=== PATIENT | male | born 1940 | race Hispanic/Latino ===

== ENCOUNTER 2017-05-18 10:55 | Inpatient (IN) | payer MEDICARE ==
[2017-05-18 11:00] VITALS: BMI 21.5
--- NOTE | 2017-05-18 11:34 | ED PDOC ---
HPI: General Adult Time Seen by Provider: 05/18/17 11:04 Chief Complaint (Nursing): Fever Chief Complaint (Provider): Generalized weakness History Per: Patient History/Exam Limitations: no limitations Onset/Duration Of Symptoms: Days (x1) Current Symptoms Are (Timing): Still Present Additional Complaint(s): Leo Luke is a 76 year old male with a past medical history of COPD, HTN, and hyperlipidemia, who is presenting to the ER with complains of generalized weakness with associated fever and one episode of non-bloody diarrhea, onset one day ago. Patient reports feeling like his heart was racing during bowel movements. He denies chest pain, shortness of breath, nausea, vomiting, abdominal pain, cough, or any genitourinary symptoms. Patient offers no other medical complaints at this time. PMD: none provided Past Medical History Reviewed: Historical Data, Nursing Documentation, Vital Signs Vital Signs: Last Vital Signs Temp 97.6 F 05/21/17 20:00 Pulse 78 05/21/17 20:00 Resp 20 05/21/17 20:00 BP 148/68 05/21/17 20:00 Pulse Ox 97 05/21/17 20:00 - Medical History PMH: COPD, Emphysema, HTN, Hypercholesterolemia, Chronic Kidney Disease - Surgical History Surgical History: No Surg Hx - Family History Family History: States: Unknown Family Hx - Home Medications Home Medications: Ambulatory Orders Medication Instructions Recorded Albuterol 0.083% [Albuterol 0.083% 3 ml IH Q4 PRN 05/18/17 Inhal Lisa (2.5 mg/3 ml) UD] Albuterol Sulfate [Proair Hfa] 2 puff IH Q6 PRN 05/18/17 Atorvastatin [Lipitor] 20 mg PO DAILY 05/18/17 Azithromycin [Zithromax] 250 mg PO MWF 05/18/17 Digoxin [Lanoxin] 250 mcg PO DAILY 05/18/17 Finasteride [Proscar] 5 mg PO DAILY 05/18/17 Fluticasone/Salmeterol 500/50 1 puff IH Q12 05/18/17 [Advair Diskus 500/50] Gabapentin [Neurontin] 300 mg PO HS 05/18/17 Insulin Glargine, Recombina 20 unit SC HS 05/18/17 [Lantus] Losartan [Cozaar] 25 mg PO DAILY 05/18/17 Repaglinide [Prandin] 2 mg PO TID 05/18/17 Tiotropium [Spiriva] 18 mcg IH DAILY 05/18/17 Warfarin [Coumadin] 2.5 mg PO Q48H 05/18/17 Warfarin [Coumadin] 5 mg PO Q48H 05/18/17 - Allergies Allergies/Adverse Reactions: Allergies Allergy/AdvReac Type Severity Reaction Status Date / Time hydromorphone Allergy Mild RASH Verified 05/18/17 11:44 Review of Systems ROS Statement: Except As Marked, All Systems Reviewed And Found Negative Constitutional: Positive for: Fever, Weakness Cardiovascular: Negative for: Chest Pain Respiratory: Negative for: Cough, Shortness of Breath Gastrointestinal: Positive for: Diarrhea. Negative for: Nausea, Vomiting, Abdominal Pain Genitourinary Male: Negative for: Other ( genitourinary problems) Physical Exam - Reviewed Nursing Documentation Reviewed: Yes Vital Signs Reviewed: Yes - Physical Exam Appears: Positive for: Non-toxic, No Acute Distress Head Exam: Positive for: ATRAUMATIC, NORMAL INSPECTION, NORMOCEPHALIC Skin: Positive for: Normal Color, Warm, Dry Eye Exam: Positive for: EOMI, Normal appearance, PERRL Neck: Positive for: Normal, Painless ROM, Supple Cardiovascular/Chest: Positive for: Irregularly Irregular. Negative for: Murmur Respiratory: Positive for: Normal Breath Sounds. Negative for: Respiratory Distress Gastrointestinal/Abdominal: Positive for: Normal Exam, Soft. Negative for: Tenderness Back: Positive for: Normal Inspection. Negative for: L CVA Tenderness, R CVA Tenderness, Vertebral Tenderness Extremity: Positive for: Normal ROM. Negative for: Pedal Edema, Deformity Neurologic/Psych: Positive for: Alert, Oriented. Negative for: Motor/Sensory Deficits - Laboratory Results Result Diagrams: 05/21/17 04:56 05/21/17 04:56 - ECG Interpretation Of ECG: A fib @ O2 Sat by Pulse Oximetry: 98 (RA) Pulse Ox Interpretation: Normal - Physician Consult Information Time Consulting Physican Contacted: 13:01 Physician Contacted: Andrew Last Outcome Of Conversation: Findings discussed, agrees with ASA, pt on Coumadin with INR 3.7, no Lovenox at this time. Medical Decision Making Medical Decision Making: Time: 11:45 Plan: --EKG --CMP --Troponin --ED Urine Dipstick --CBC --PTT --Coag --CXR --Blood Culture --Urine Culture --Influenza A B --Urinalysis --VBG --Tylenol 650 mg PO Differentials include: fever, viral syndrome, influenza 13:16 Dr. Galvez in ED evaluating Patient. Scribe Attestation: Documented by Hilary Martínez, acting as a scribe for Ellie Fatima MD. Provider Scribe Attestation: All medical record entries made by the Scribe were at my direction and personally dictated by me. I have reviewed the chart and agree that the record accurately reflects my personal performance of the history, physical exam, medical decision making, and the department course for this patient. I have also personally directed, reviewed, and agree with the discharge instructions and disposition. Disposition - Clinical Impression Clinical Impression: Fever in adult, Sepsis, NSTEMI (non-ST elevated myocardial infarction) - Patient ED Disposition Is Patient to be Admitted: Yes - Disposition Disposition Time: 13:00 Condition: GUARDED - Pt Status Changed To: Hospital Disposition Of: Inpatient - Admit Certification Admit to Inpatient:: After my assessment, the patient will require hospitalization for at least two midnights. This is because of the severity of symptoms shown, intensity of services needed, and/or the medical risk in this patient being treated as an outpatient. - POA Present On Arrival: None
[2017-05-18 12:09] LABS: VENOUS BLOOD GAS PCO2 48 mmHg (40-60); VENOUS BLOOD GAS PO2 26 mm/Hg (30-55)
[2017-05-18 12:24] LABS: BASO % 0.2 % (0.0-2.0); HEMOGLOBIN 15.2 g/dL (12.0-18.0); LYMPH # 0.9 K/uL (1.0-4.3); LYMPH % 4.2 % (20.0-40.0); MEAN CELL VOLUME 92.3 fl (80.0-94.0); MEAN CORPUSCULAR HEMOGLOBIN 31.5 pg (27.0-31.0); MEAN CORPUSCULAR HGB CONC 34.1 g/dL (33.0-37.0); MEAN PLATELET VOLUME 7.5 fl (7.2-11.7); MONO % 9.3 % (0.0-10.0); NEUT # 18.2 K/uL (1.8-7.0); NEUT % 86.3 % (50.0-75.0); NRBC % 0.6 % (0.0-0.0); PLATELET COUNT 259 K/uL (130-400); RBC 4.84 Mil/uL (4.40-5.90); RED CELL DISTRIBUTION WIDTH 12.9 % (11.5-14.5); WHITE BLOOD COUNT 21.1 K/uL (4.8-10.8)
--- NOTE | 2017-05-18 12:32 | RAD ---
HISTORY: Fever COMPARISON: 11/19/2015 FINDINGS: LUNGS: No active pulmonary disease. Scarring, surgical changes left lung. PLEURA: No significant pleural effusion identified, no pneumothorax apparent. CARDIOVASCULAR: Normal. OSSEOUS STRUCTURES: No significant abnormalities. VISUALIZED UPPER ABDOMEN: Normal. OTHER FINDINGS: None. IMPRESSION: No active disease. No significant interval change compared to the prior examination(s).
[2017-05-18 12:35] LABS: INR 3.7 (0.9-1.2); PARTIAL THROMBOPLASTIN TIME 49.1 Seconds (25.6-37.1)
[2017-05-18 12:37] LABS: PROTHROMBIN TIME 42.2 Seconds (9.8-13.1)
[2017-05-18] MEDS ORDERED: Sodium Chloride 0.9% 500 ML IV STA (12:38)
[2017-05-18 12:48] LABS: ALB/GLOB RATIO 1.3 (1.0-2.1); ALBUMIN 4.1 g/dL (3.5-5.0); ALT/SGPT 39 U/L (21-72); AST/SGOT 42 U/L (17-59); BLOOD UREA NITROGEN 20 mg/dl (9-20); CALCIUM 9.9 mg/dL (8.4-10.2); GFR AFRICAN-AMERICAN > 60; GFR NON-AFRICAN AMERICAN > 60
[2017-05-18] MEDS ORDERED: cefTRIAXone (Rocephin) 1 gm Inj ONE (13:17)
[2017-05-18] MEDS ORDERED: levoFLOXacin 750 mg in D5W 150 ML BAG IVPB ONE (13:21)
[2017-05-18] MEDS ORDERED: Azithromycin 500 MG in Sodium Chloride 0.9% 250 ML IV ONE (13:30)
[2017-05-18 13:44] LABS: TOTAL CELLS COUNTED 100
[2017-05-18 13:45] LABS: BANDS 2 % (0-2); EOSINOPHIL 1 % (0-7); LYMPHOCYTE 5 % (20-50); MONOCYTE 9 % (0-10); NEUTROPHIL 83 % (42-75); PLATELET ESTIMATE NORMAL (NORMAL)
--- NOTE | 2017-05-18 14:26 | CP.PCM.HP ---
History of Present Illness - History of Present Illness History of Present Illness: 76 yo M with PMH HTN, COPD, DM2, atrial fibrillation (sees Dr. Last), hx lung nodule presented to ED with complaint of generalized weakness and 1 episode of non-bloody diarrhea 1 day ago. Denies chest pain, shortness of breath, nausea, vomiting, abdominal pain, joint pain. He has no other complaints at this time. He has a history of left lung nodule/mass that has been resected in the past; sees specialist in [facility] [place] [place]. He has been on PO azithromycin for about 1 month for a pneumonia found on imaging at [facility] [place] [place]. PMD: Dr. Galvez Past Med hx: hypertension, COPD, DM2, A-fib, lung nodule Past Surg hx: left lung Family hx: grandmother DM2, grandfather [place] Social hx: smoked cig for 10 yrs (age [age]), then smoked tobacco pipe from age [age], 1 beer a week, denies drug use Allergies: hydromorphone Next of kin: , [place] [phone] Code status: full code ED course: -EKG HR 100, A-fib with premature ventricular or aberrantly conducted complexes ; marked ST abnormality, possible anterolateral subendocardial injury -WBC 21 -Lactate 3.1 -Troponin 0.9 -Cardiology consult- Dr. Last -INR 3.7 -NS bolus -Levaquin, Rocephin -Blood Cultures -Urine Cultures -Influenza A B - neg -Urinalysis Present on Admission - Present on Admission Any Indicators Present on Admission: No Review of Systems - Review of Systems Review of Systems: Positive for weakness and diarrhea. Negative for headache, blurry/changes in vision, headache, loss of coordination, diaphoresis, chest pain, shortness of breath, dyspnea on exertion, orthopnea, abdominal pain, nausea, vomiting, constipation, blood in stool, pain/burning with urination, blood in urine, joint swelling, muscle cramps. Past Patient History - Past Medical History & Family History Past Medical History?: Yes - Past Social History Smoking Status: Former Smoker Alcohol: Occasional Drugs: Denies Home Situation {Lives}: With Family - CARDIAC Hx Cardiac Disorders: Yes Hx Hypercholesterolemia: Yes Hx Hypertension: Yes - PULMONARY Hx Respiratory Disorders: Yes Hx Chronic Obstructive Pulmonary Disease (COPD): Yes Hx Emphysema: Yes Hx Pneumonia: Yes Other/Comment: hx pulmonary nodule - NEUROLOGICAL Hx Neurological Disorder: No - HEENT Hx HEENT Problems: No - RENAL Hx Chronic Kidney Disease: Yes - ENDOCRINE/METABOLIC Hx Endocrine Disorders: Yes Hx Diabetes Mellitus Type 2: Yes - HEMATOLOGICAL/ONCOLOGICAL Hx Blood Disorders: No - INTEGUMENTARY Hx Dermatological Problems: No - MUSCULOSKELETAL/RHEUMATOLOGICAL Hx Musculoskeletal Disorders: No - GASTROINTESTINAL Hx Gastrointestinal Disorders: No - GENITOURINARY/GYNECOLOGICAL Hx Genitourinary Disorders: Yes Hx Prostate Problems: Yes - PSYCHIATRIC Hx Substance Use: No - SURGICAL HISTORY Hx Surgeries: Yes Other/Comment: lung nodule resection - ANESTHESIA Hx Anesthesia: Yes Hx Anesthesia Reactions: No Hx Malignant Hyperthermia: No Meds Allergies/Adverse Reactions: Allergies Allergy/AdvReac Type Severity Reaction Status Date / Time hydromorphone Allergy Mild RASH Verified 05/18/17 11:44 Physical Exam - Constitutional Appears: Non-toxic - Head Exam Head Exam: ATRAUMATIC, NORMAL INSPECTION - Eye Exam Eye Exam: Normal appearance, PERRL. absent: Scleral icterus - ENT Exam ENT Exam: Mucous Membranes Moist, Normal Exam - Neck Exam Neck exam: Positive for: Normal Inspection. Negative for: Lymphadenopathy, Meningismus, Tenderness - Respiratory Exam Respiratory Exam: Clear to Auscultation Bilateral, NORMAL BREATHING PATTERN. absent: Wheezes, Respiratory Distress - Cardiovascular Exam Cardiovascular Exam: Irregular Rhythm Additional comments: irregularly irregular - GI/Abdominal Exam GI & Abdominal Exam: Normal Bowel Sounds, Soft. absent: Distended, Tenderness - Extremities Exam Extremities exam: Positive for: normal capillary refill, normal inspection. Negative for: calf tenderness, joint swelling, pedal edema - Back Exam Back exam: NORMAL INSPECTION - Neurological Exam Neurological exam: Alert, Oriented x3 - Psychiatric Exam Psychiatric exam: Normal Affect, Normal Mood - Skin Skin Exam: Dry, Intact, Warm Additional comments: flushed skin on face; as per not significantly off baseline Results - Vital Signs Recent Vital Signs: Last Vital Signs Temp 98.5 F 05/18/17 14:15 Pulse 90 05/18/17 14:15 Resp 21 05/18/17 14:15 BP 130/50 L 05/18/17 14:15 Pulse Ox 97 05/18/17 14:15 - Labs Result Diagrams: 05/18/17 17:45 05/18/17 17:17 Labs: Laboratory Results - last 24 hr 05/18/17 05/18/17 05/18/17 11:11 11:45 11:45 WBC 21.1 H D RBC 4.84 Hgb 15.2 Hct 44.6 MCV 92.3 MCH 31.5 H MCHC 34.1 RDW 12.9 Plt Count 259 MPV 7.5 Neut % (Auto) 86.3 H Lymph % (Auto) 4.2 L [place] % (Auto) 9.3 Eos % (Auto) 0.0 Baso % (Auto) 0.2 Neut # (Auto) 18.2 H Lymph # (Auto) 0.9 L [place] # (Auto) 2.0 H Eos # (Auto) 0.0 Baso # (Auto) 0.0 Neutrophils % (Manual) 83 H Band Neutrophils % 2 Lymphocytes % (Manual) 5 L Monocytes % (Manual) 9 Eosinophils % (Manual) 1 Platelet Estimate Normal PT INR APTT pO2 VBG pH VBG pCO2 VBG HCO3 VBG Total CO2 VBG O2 Sat (Calc) VBG Base Excess VBG Potassium Glucose Lactate FiO2 Crit Value Called To Crit Value Called By Crit Value Read Back Blood Gas Notified Time Sodium 141 Potassium 4.6 Chloride 98 Carbon Dioxide 28 Anion Gap 20 BUN 20 Creatinine 1.0 Est GFR ( Amer) > 60 Est GFR (Non-Af Amer) > 60 POC Glucose (mg/dL) 149 H Random Glucose 145 H Calcium 9.9 Total Bilirubin 0.9 AST 42 ALT 39 Alkaline Phosphatase 64 Troponin I 0.9170 H* Total Protein 7.2 Albumin 4.1 Globulin 3.1 Albumin/Globulin Ratio 1.3 Venous Blood Potassium Influenza Typ A,B (EIA) 05/18/17 05/18/17 05/18/17 11:45 11:45 12:00 WBC RBC Hgb Hct MCV MCH MCHC RDW Plt Count MPV Neut % (Auto) Lymph % (Auto) [place] % (Auto) Eos % (Auto) Baso % (Auto) Neut # (Auto) Lymph # (Auto) [place] # (Auto) Eos # (Auto) Baso # (Auto) Neutrophils % (Manual) Band Neutrophils % Lymphocytes % (Manual) Monocytes % (Manual) Eosinophils % (Manual) Platelet Estimate PT 42.2 H* INR 3.7 H APTT 49.1 H pO2 26 L VBG pH 7.40 VBG pCO2 48 VBG HCO3 26.7 VBG Total CO2 31.2 H VBG O2 Sat (Calc) 56.7 VBG Base Excess 4.0 H VBG Potassium 4.9 Glucose 148 H Lactate 3.3 H FiO2 21.0 Crit Value Called To Laurel stanley Crit Value Called By 23 Crit Value Read Back Y Blood Gas Notified Time 1205 Sodium 136.0 Potassium Chloride 100.0 Carbon Dioxide Anion Gap BUN Creatinine Est GFR ( Amer) Est GFR (Non-Af Amer) POC Glucose (mg/dL) Random Glucose Calcium Total Bilirubin AST ALT Alkaline Phosphatase Troponin I Total Protein Albumin Globulin Albumin/Globulin Ratio Venous Blood Potassium 4.9 Influenza Typ A,B (EIA) Negative for flu a/b Assessment & Plan - Assessment and Plan (Free Text) Plan: Assessment and Plan: # Sepsis Secondary to pneumonia seen on chest CT, failed outpatient treatment on zithromax. Lactate trend 3.3-->4.1--> 2.6, lactic acidosis. Leukocytosis trended from 21 to 18.7. Pt received 1.6L fluid bolus; fluids held at this time due to fluid overload. S/p levaquin and rocephin in ED. - ICU consult, admit to ICU. - Zosyn - Repeat lacate, CBC, CMP in am # NSTEMI - Rise in troponins, suspected to be secondary possible anterolateral subendocardial injury as read on EKG. No indication for code heart at this time. Pt anticoagulated on coumadin with INR 3.7, coumadin held at this time. -Continue with trending troponins Q8. -Cardiology consult, case discussed with Dr. Last. -ICU consult, admit to ICU # A fib with RVR - RVR resolved; pt is rate controlled. - C/w digoxin home dose - Coumadin held at this time, will trend INR - Digoxin level pending # COPD - Pulmonology consult- Dr. Hameed - CXR- no interval change compared to prior; surgical scarring changes at left lung - Continue with medications as per pulmonary - High flow O2 due to mild overload resulted from treating sepsis # Diabetes Mellitus - c/w home dose insulin levemir - c/w prandin home dose - hypoglycemia protocol # HTN - Normotensive - Restart home meds - Monitor for changes # HLD - C/w home meds atorvastatin 40mg # DVT prophylaxis - Pt on coumadin, INR 3.7, hold coumadin for now, repeat INR # Code status - Full code
[2017-05-18 14:31] LABS: SQUAMOUS EPITHIAL < 1 /hpf (0-5); URINE BACTERIA RARE (<OCC); URINE BILIRUBIN NEGATIVE (NEGATIVE); URINE BLOOD NEGATIVE (NEGATIVE); URINE CLARITY SLIGHTY-CLOUDY (Clear); URINE COLOR YELLOW (YELLOW); URINE GLUCOSE (UA) NEG (Normal); URINE HYALINE CAST 0-2 /hpf (0-2); URINE LEUKOCYTE ESTERASE NEG Leu/uL (Negative); URINE PROTEIN NEGATIVE (NEGATIVE); URINE UROBILINOGEN 0.2-1.0 mg/dL (0.2-1.0)
--- NOTE | 2017-05-18 14:48 | CARD ---
APPROVED REPORT EKG Measurement Heart [id number] <Conclusion> Atrial fibrillation with premature ventricular or aberrantly conducted complexes Septal infarct, age undetermined Marked ST abnormality, possible anterolateral subendocardial injury Abnormal ECG
[2017-05-18] MEDS ORDERED: levoFLOXacin 750 mg in D5W 750 MG/150 ML BAG IVPB ONE (14:51)
[2017-05-18 14:59] LABS: VENOUS BLOOD GAS PCO2 40 mmHg (40-60); VENOUS BLOOD GAS PO2 37 mm/Hg (30-55)
[2017-05-18] MEDS ORDERED: Sodium Chloride 0.9% 500 ML IV ONE (15:00)
--- NOTE | 2017-05-18 15:58 | CP.PCM.CON ---
History of Present Illness - History of Present Illness History of Present Illness: This 76-year-old gentleman who was last seen by myself as an outpatient 5 years ago presented to the emergency department with an abrupt onset of diarrhea associated with weakness and palpitations. Upon presentation to the emergency department he was found to be febrile and tachycardic with elevated WBC of 21, 000. A chest x-ray was performed which showed no active pulmonary infiltrates but did show evidence of prior thoracic surgery on the left upper lobe and stable bandlike scarring in the right upper lobe. He had been in his usual state of health at home prior to this current event and is unaware of ill contacts. His past medical history includes coronary artery disease, atrial fibrillation and severe bullous emphysema. 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 He was referred to [facility] where he has been followed subsequently in having undergone mediastinoscopy and contralateral nodule resection noted malignancy was ever demonstrated. He was placed on prednisone because of a diagnosis of organizing pneumonia found on his lung biopsy and had significant improvement in his medical and radiographic disease. He relates that there have been 2 new nodules which have recently been seen on imaging of his chest over at [facility] [place]. Past Patient History - Past Medical History & Family History Past Medical History?: Yes - Past Social History Smoking Status: Former Smoker Chewing Tobacco Use: No Cigar Use: No Alcohol: Social Drugs: Cannabis (occasionally) Home Situation {Lives}: With Family - CARDIAC Hx Atrial Fibrillation: Yes Hx Hypercholesterolemia: Yes Hx Hypertension: Yes - PULMONARY Hx Chronic Obstructive Pulmonary Disease (COPD): Yes Hx Emphysema: Yes Other/Comment: Pulmonary nodules. Bronchoscopy with washings performed in 2013 which revealed adenosquamous malignant cells. Follow-up at [facility] [place] failed to reveal a primary site of neoplasm. - NEUROLOGICAL Hx Neurological Disorder: No - HEENT Hx HEENT Problems: No - RENAL Hx Chronic Kidney Disease: No - ENDOCRINE/METABOLIC Hx Diabetes Mellitus Type 2: Yes (pre-diabetic) - HEMATOLOGICAL/ONCOLOGICAL Hx Blood Disorders: No Hx Bruising: Yes - INTEGUMENTARY Hx Dermatological Problems: No - MUSCULOSKELETAL/RHEUMATOLOGICAL Hx Musculoskeletal Disorders: No - GASTROINTESTINAL Hx Gastrointestinal Disorders: No - GENITOURINARY/GYNECOLOGICAL Hx Prostate Problems: Yes - PSYCHIATRIC Hx Psychophysiologic Disorder: No Hx Substance Use: No - SURGICAL HISTORY Hx Surgeries: Yes Other/Comment: LUNG SX . BACK SX - ANESTHESIA Hx Anesthesia: Yes Hx Anesthesia Reactions: No Hx Malignant Hyperthermia: No Meds Allergies/Adverse Reactions: Allergies Allergy/AdvReac Type Severity Reaction Status Date / Time hydromorphone Allergy Mild RASH Verified 05/18/17 11:44 - Medications Medications: Current Medications Sodium Chloride (Sodium Chloride 0.9%) 500 mls @ 500 mls/hr IV .Q1H ONE Stop: 05/18/17 15:59 Last Admin: 05/18/17 15:15 Dose: 500 mls/hr Physical Exam - Additional Findings Additional findings: Thin male, well-developed and in no acute distress. Flushed facies. Pharynx is pink and mucous membranes are moist. No exudate. Conjunctivae are pink and there is no scleral icterus. Pupils are equal and reactive. Nares are patent bilaterally. No bleeding or exudate. Neck is supple and trachea is midline there is no palpable cervical or supraclavicular adenopathy. No neck vein distention or carotid bruit. No dullness on chest percussion. Hemidiaphragms are displaced caudally. Breath sounds are diminished bilaterally. No audible wheezing or bronchial breathing. Rare dry rales are heard in the lower lobes. No rhonchi or rub. Heart sounds are distant. Rhythm is irregularly irregular. Abdomen is soft and nontender without palpable HSM. Bowel sounds appear normal. Peripheral pulses are intact. There is trace edema at the right ankle. No cyanosis. Results - Vital Signs Recent Vital Signs: Last Vital Signs Temp 99.6 F 05/18/17 15:45 Pulse 94 H 05/18/17 15:45 Resp 23 05/18/17 15:45 BP 114/46 L 05/18/17 15:45 Pulse Ox 97 05/18/17 15:45 - Labs Result Diagrams: 05/19/17 04:50 05/19/17 04:50 Labs: Laboratory Results - last 24 hr 05/18/17 05/18/17 05/18/17 11:11 11:45 11:45 WBC 21.1 H D RBC 4.84 Hgb 15.2 Hct 44.6 MCV 92.3 MCH 31.5 H MCHC 34.1 RDW 12.9 Plt Count 259 MPV 7.5 Neut % (Auto) 86.3 H Lymph % (Auto) 4.2 L [place] % (Auto) 9.3 Eos % (Auto) 0.0 Baso % (Auto) 0.2 Neut # (Auto) 18.2 H Lymph # (Auto) 0.9 L [place] # (Auto) 2.0 H Eos # (Auto) 0.0 Baso # (Auto) 0.0 Neutrophils % (Manual) 83 H Band Neutrophils % 2 Lymphocytes % (Manual) 5 L Monocytes % (Manual) 9 Eosinophils % (Manual) 1 Platelet Estimate Normal PT INR APTT pO2 VBG pH VBG pCO2 VBG HCO3 VBG Total CO2 VBG O2 Sat (Calc) VBG Base Excess VBG Potassium Glucose Lactate FiO2 Blood Gas Comments Crit Value Called To Crit Value Called By Crit Value Read Back Blood Gas Notified Time Sodium 141 Potassium 4.6 Chloride 98 Carbon Dioxide 28 Anion Gap 20 BUN 20 Creatinine 1.0 Est GFR ( Amer) > 60 Est GFR (Non-Af Amer) > 60 POC Glucose (mg/dL) 149 H Random Glucose 145 H Calcium 9.9 Total Bilirubin 0.9 AST 42 ALT 39 Alkaline Phosphatase 64 Troponin I 0.9170 H* Total Protein 7.2 Albumin 4.1 Globulin 3.1 Albumin/Globulin Ratio 1.3 Venous Blood Potassium Urine Color Urine Clarity Urine pH Ur Specific [place] Urine Protein Urine Glucose (UA) Urine Ketones Urine Blood Urine Nitrate Urine Bilirubin Urine Urobilinogen Ur Leukocyte Esterase Urine RBC (Auto) Urine Microscopic WBC Ur Squamous Epith Cells Urine Bacteria Hyaline Casts Influenza Typ A,B (EIA) 05/18/17 05/18/17 05/18/17 11:45 11:45 12:00 WBC RBC Hgb Hct MCV MCH MCHC RDW Plt Count MPV Neut % (Auto) Lymph % (Auto) [place] % (Auto) Eos % (Auto) Baso % (Auto) Neut # (Auto) Lymph # (Auto) [place] # (Auto) Eos # (Auto) Baso # (Auto) Neutrophils % (Manual) Band Neutrophils % Lymphocytes % (Manual) Monocytes % (Manual) Eosinophils % (Manual) Platelet Estimate PT 42.2 H* INR 3.7 H APTT 49.1 H pO2 26 L VBG pH 7.40 VBG pCO2 48 VBG HCO3 26.7 VBG Total CO2 31.2 H VBG O2 Sat (Calc) 56.7 VBG Base Excess 4.0 H VBG Potassium 4.9 Glucose 148 H Lactate 3.3 H FiO2 21.0 Blood Gas Comments Crit Value Called To Laurel stanley Crit Value Called By 23 Crit Value Read Back Y Blood Gas Notified Time 1205 Sodium 136.0 Potassium Chloride 100.0 Carbon Dioxide Anion Gap BUN Creatinine Est GFR ( Amer) Est GFR (Non-Af Amer) POC Glucose (mg/dL) Random Glucose Calcium Total Bilirubin AST ALT Alkaline Phosphatase Troponin I Total Protein Albumin Globulin Albumin/Globulin Ratio Venous Blood Potassium 4.9 Urine Color Urine Clarity Urine pH Ur Specific [place] Urine Protein Urine Glucose (UA) Urine Ketones Urine Blood Urine Nitrate Urine Bilirubin Urine Urobilinogen Ur Leukocyte Esterase Urine RBC (Auto) Urine Microscopic WBC Ur Squamous Epith Cells Urine Bacteria Hyaline Casts Influenza Typ A,B (EIA) Negative for flu a/b 05/18/17 05/18/17 14:20 14:51 WBC RBC Hgb Hct MCV MCH MCHC RDW Plt Count MPV Neut % (Auto) Lymph % (Auto) [place] % (Auto) Eos % (Auto) Baso % (Auto) Neut # (Auto) Lymph # (Auto) [place] # (Auto) Eos # (Auto) Baso # (Auto) Neutrophils % (Manual) Band Neutrophils % Lymphocytes % (Manual) Monocytes % (Manual) Eosinophils % (Manual) Platelet Estimate PT INR APTT pO2 37 VBG pH 7.40 VBG pCO2 40 VBG HCO3 24.2 VBG Total CO2 26.0 VBG O2 Sat (Calc) 78.6 H VBG Base Excess 0.0 VBG Potassium 5.2 Glucose 127 H Lactate 4.1 H* FiO2 21.0 Blood Gas Comments Lactate 4.1 Crit Value Called To rian Mcguire Crit Value Called By 22 Crit Value Read Back Y Blood Gas Notified Time 1459 Sodium 136.0 Potassium Chloride 102.0 Carbon Dioxide Anion Gap BUN Creatinine Est GFR ( Amer) Est GFR (Non-Af Amer) POC Glucose (mg/dL) Random Glucose Calcium Total Bilirubin AST ALT Alkaline Phosphatase Troponin I Total Protein Albumin Globulin Albumin/Globulin Ratio Venous Blood Potassium 5.2 Urine Color Yellow Urine Clarity Slighty-cloudy Urine pH 5.0 Ur Specific [place] 1.016 Urine Protein Negative Urine Glucose (UA) Neg Urine Ketones Negative Urine Blood Negative Urine Nitrate Negative Urine Bilirubin Negative Urine Urobilinogen 0.2-1.0 Ur Leukocyte Esterase Neg Urine RBC (Auto) 3 Urine Microscopic WBC 1 Ur Squamous Epith Cells < 1 Urine Bacteria Rare Hyaline Casts 0-2 Influenza Typ A,B (EIA) Assessment & Plan (1) Myocardial infarction Status: Acute Priority: High Comment: ST segment abnormalities in the anterolateral wall, suspected subendocardial infarction. (2) Fever Status: Acute Priority: High Comment: Work up for source ongoing. CT chest requested. (3) Leukocytosis Status: Acute Priority: High Comment: See above. (4) Lactic acidosis Status: Acute Priority: High Comment: Sepsis syndrome/SIRS. (5) Pulmonary emphysema Status: Chronic Priority: High (6) Pulmonary nodules/lesions, multiple Status: Chronic Priority: High Comment: [place] [facility] [place] [facility] [place] past 5 [place]. (7) Atrial fibrillation Status: Chronic Priority: High (8) Type 2 diabetes mellitus Status: Chronic Priority: High - Assessment and Plan (Free Text) Plan: Suspected SIRS without evidence of infectious etiology. Continue all maintenance me for comorbid illnesses. Empiric antibiotic therapy. CT thorax and abdomen has been requested. - Date & Time Date: 05/18/17 Time: 16:19
[2017-05-18] MEDS ORDERED: Sodium Chloride 0.9% 1,000 ML IV SCH (16:00)
[2017-05-18] MEDS ORDERED: Levalbuterol 1.25 MG/3 ML Inhal Soln UD INH PRN (16:23)
[2017-05-18] MEDS ORDERED: Iohexol 240 (50 ml) ONE (16:25)
[2017-05-18] MEDS: Iohexol 240 (50 ml) PO ONE ×2 (16:25→18:11)
--- NOTE | 2017-05-18 16:34 | CP.CCUPN ---
CCU Subjective - Physician Review Subjective (Free Text): All Physician notes ad Nursing notes reviewed: 76M with PMH Chronic A fib on warfarin, HTN, DM II, Neuropathy, COPD with pulm nodules: admitted thru ER for AMS, fever, elevated Trop and lactic acidosis. Patient is a fair historian and HPI obtained via and review of the record and discussion with Family Med team. In ER, no hypotension nor hypoxemia noted, given initial fluid challenge of 500ml NSS x 2 after initial Lactate= 3.3, after approx 3 hours, repeat lactate= 4.1 and additional 500ml NSS ordered. Temp 100.9 [place] [address] noted without bandemia. Rocephin and Levaquin doses given. Has also been on Azithromycin for the past month for pneumonia. He denies any CP, SOB, + fevers, no chills, abdominal pain, cough, sweats, dysuria, but had a large diarrheal BM yesterday. Other Vitals and I/Os reviewed. ROS: No other pertinent negs or positives on 10+ system review, intubated. Allergies: Hydromorphone Home Meds: Albuterol, Lipitor, Azithromycin, Digoxin, Proscar, Advair, Neurontin , Lantus, Cozaar, Prandin, Spiriva, Warfarin. PMSFH: Left Lung and Back Surgery; former smoker, denies ETOH abuse. All other historical Nursing and physician documentation reviewed to date; no new pertinent info noted relevant to current medical problems. EXAM- HEENT: no icterus, no gaze preference, pupils equal and reactive, no icterus. NECK: No JVD, supple, carotids equal upstroke bilat/no bruits CHEST: decreased BS bases, otherwise clear bilat, no wheezes audible HEART: irregular tachy, distant, S1S2, no rubs or murmurs ABD: soft, no distention, no tympany, no palp tenderness, BS hypoactive. EXT: Trace edema. No peripheral/ digital cyanosis, no calf tenderness or palpable cords, distal pulses intact and symmetrical. NEURO: no gross focal motor deficits. SKIN: no rashes, warm and dry. CXR: bibasilar bullous lung disease, no gross consolidation, small nodule seen in RLL and RUL, fibrous chnages RUl(my interp). EKG: A fib 100/min, ST [place] inferior and anterolateral leads, unchanged from 02/2015 study. IMPRESSION / MAJOR PROBLEMS NOW: 1. AMS- r/o acute-subacute [employer]LE[employer] event, ICU, TIA/Stroke, [employer] infection 2. r/o acute/subacute DE: can be a mimic of Sepsis with shock. 3. Severe Sepsis, etiology: Colitis- rule out C diff infection, intra- abdominal abscess; ischemic bowel disease? 4. r/o metabolic Encephalopathy / HHS 5. COPD/Bullous Lung Disease with Pulm Nodules PLAN: 1. Volume resuscitation, serial Lactates- repeat a 3rd level in 3-4 hours. If trend shows no resolving direction, admit to ICU for further mgmt. 2. Serial Trops, ECHO. ASA given in ER, continue Statin, add cardioselective BBs. Already anticoagulated; add Plavix loading for Clopidogrel andrea patient. 3. Empiric abx coverage; Panculture. 4. CT Brain / chest / Abd-Pelvis 5. Check Serum osmolarity. 6. Hold further doses of Coumadin, would also hold Neurontin, check Digoxin level. 7. Full Code status. Time spent with this patient did not overlap with any other provider's medical or critical care time. Additionally the code selected for the services rendered in this note includes the time spent: talking to the patients family, associated physicians and reviewing hospital data/results not listed here which extended to a total of 35 minutes. CCU Objective - Vital Signs / Intake & Output Vital Signs (Last 4 hours): Vital Signs Temp Pulse Resp BP Pulse Ox 05/18/17 15:45 99.6 F 94 H 23 114/46 L 97 05/18/17 14:15 98.5 F 90 21 130/50 L 97 05/18/17 13:17 98 Intake and Output (Last 8hrs): Intake & Output 05/18/17 05/18/17 05/18/17 06:59 14:59 22:59 Weight 146 lb - Medications Active Medications: Active Medications Generic Name Dose Route Start Last Admin Trade Name Freq PRN Reason Stop Dose Admin Sodium Chloride 1,000 mls @ 999 mls/hr 05/18/17 16:00 05/18/17 16:15 Sodium Chloride 0.9% IV 05/19/17 16:00 999 mls/hr .Q1H1M ULISES Administration Levalbuterol HCl 1.25 mg 05/18/17 16:23 Xopenex INH RQ8 PRN Shortness of Breath Tiotropium [place] 18 mcg 05/19/17 09:00 Spiriva INH DAILY ULISES - Patient Studies Lab Studies: Lab Studies 05/18/17 05/18/17 05/18/17 Range/Units 14:51 14:20 12:00 WBC (4.8-10.8) K/uL RBC (4.40-5.90) Mil/uL Hgb (12.0-18.0) g/dL Hct (35.0-51.0) % MCV (80.0-94.0) fl MCH (27.0-31.0) pg MCHC (33.0-37.0) g/dL RDW (11.5-14.5) % Plt Count (130-400) K/uL MPV (7.2-11.7) fl Neut % (Auto) (50.0-75.0) % Lymph % (Auto) (20.0-40.0) % [place] % (Auto) (0.0-10.0) % Eos % (Auto) (0.0-4.0) % Baso % (Auto) (0.0-2.0) % Neut # (Auto) (1.8-7.0) K/uL Lymph # (Auto) (1.0-4.3) K/uL [place] # (Auto) (0.0-0.8) K/uL Eos # (Auto) (0.0-0.7) K/uL Baso # (Auto) (0.0-0.2) K/uL Neutrophils % (Manual) (42-75) % Band Neutrophils % (0-2) % Lymphocytes % (Manual) (20-50) % Monocytes % (Manual) (0-10) % Eosinophils % (Manual) (0-7) % Platelet Estimate (NORMAL) PT (9.8-13.1) Seconds INR (0.9-1.2) APTT (25.6-37.1) Seconds pO2 37 26 L (30-55) mm/Hg VBG pH 7.40 7.40 (7.32-7.43) VBG pCO2 40 48 (40-60) mmHg VBG HCO3 24.2 26.7 mmol/L VBG Total CO2 26.0 31.2 H (22-28) mmol/L VBG O2 Sat (Calc) 78.6 H 56.7 (40-65) % VBG Base Excess 0.0 4.0 H (0.0-2.0) mmol/L VBG Potassium 5.2 4.9 (3.6-5.2) mmol/L Glucose 127 H 148 H (75-110) mg/dL Lactate 4.1 H* 3.3 H (0.7-2.1) mmol/L FiO2 21.0 21.0 % Blood Gas Comments Lactate 4.1 Crit Value Called To rian Mcguire Rn Crit Value Called By Crit Value Read Back Y Y Blood Gas Notified Time 1459 1205 Sodium 136.0 136.0 (132-148) mmol/l Potassium (3.6-5.0) MMOL/L Chloride 102.0 100.0 (98-107) mmol/L Carbon Dioxide (22-30) mmol/L Anion Gap (10-20) BUN (9-20) mg/dl Creatinine (0.8-1.5) mg/dl Est GFR ( Amer) Est GFR (Non-Af Amer) POC Glucose (mg/dL) (65-110) mg/dL Random Glucose (75-110) mg/dL Calcium (8.4-10.2) mg/dL Total Bilirubin (0.2-1.3) mg/dl AST (17-59) U/L ALT (21-72) U/L Alkaline Phosphatase (38-126) U/L Troponin I (0.00-0.120) ng/mL Total Protein (6.3-8.2) G/DL Albumin (3.5-5.0) g/dL Globulin (2.2-3.9) gm/dL Albumin/Globulin Ratio (1.0-2.1) Venous Blood Potassium 5.2 4.9 (3.6-5.2) mmol/L Urine Color Yellow (YELLOW) Urine Clarity Slighty-cloudy (Clear) Urine pH 5.0 (5.0-8.0) Ur Specific [place] 1.016 (1.003-1.030) Urine Protein Negative (NEGATIVE) mg/dL Urine Glucose (UA) Neg (Normal) mg/dL Urine Ketones Negative (NEGATIVE) mg/dL Urine Blood Negative (NEGATIVE) Urine Nitrate Negative (NEGATIVE) Urine Bilirubin Negative (NEGATIVE) Urine Urobilinogen 0.2-1.0 (0.2-1.0) mg/dL Ur Leukocyte Esterase Neg (Negative) [place]/uL Urine RBC (Auto) 3 (0-3) /hpf Urine Microscopic WBC 1 (0-5) /hpf Ur Squamous Epith Cells < 1 (0-5) /hpf Urine Bacteria Rare (<OCC) Hyaline Casts 0-2 (0-2) /hpf Influenza Typ A,B (EIA) (NEGATIVE) 05/18/17 05/18/17 05/18/17 Range/Units 11:45 11:45 11:45 WBC (4.8-10.8) K/uL RBC (4.40-5.90) Mil/uL Hgb (12.0-18.0) g/dL Hct (35.0-51.0) % MCV (80.0-94.0) fl MCH (27.0-31.0) pg MCHC (33.0-37.0) g/dL RDW (11.5-14.5) % Plt Count (130-400) K/uL MPV (7.2-11.7) fl Neut % (Auto) (50.0-75.0) % Lymph % (Auto) (20.0-40.0) % [place] % (Auto) (0.0-10.0) % Eos % (Auto) (0.0-4.0) % Baso % (Auto) (0.0-2.0) % Neut # (Auto) (1.8-7.0) K/uL Lymph # (Auto) (1.0-4.3) K/uL [place] # (Auto) (0.0-0.8) K/uL Eos # (Auto) (0.0-0.7) K/uL Baso # (Auto) (0.0-0.2) K/uL Neutrophils % (Manual) (42-75) % Band Neutrophils % (0-2) % Lymphocytes % (Manual) (20-50) % Monocytes % (Manual) (0-10) % Eosinophils % (Manual) (0-7) % Platelet Estimate (NORMAL) PT 42.2 H* (9.8-13.1) Seconds INR 3.7 H (0.9-1.2) APTT 49.1 H (25.6-37.1) Seconds pO2 (30-55) mm/Hg VBG pH (7.32-7.43) VBG pCO2 (40-60) mmHg VBG HCO3 mmol/L VBG Total CO2 (22-28) mmol/L VBG O2 Sat (Calc) (40-65) % VBG Base Excess (0.0-2.0) mmol/L VBG Potassium (3.6-5.2) mmol/L Glucose (75-110) mg/dL Lactate (0.7-2.1) mmol/L FiO2 % Blood Gas Comments Crit Value Called To Crit Value Called By Crit Value Read Back Blood Gas Notified Time Sodium 141 (132-148) mmol/l Potassium 4.6 (3.6-5.0) MMOL/L Chloride 98 (98-107) mmol/L Carbon Dioxide 28 (22-30) mmol/L Anion Gap 20 (10-20) BUN 20 (9-20) mg/dl Creatinine 1.0 (0.8-1.5) mg/dl Est GFR ( Amer) > 60 Est GFR (Non-Af Amer) > 60 POC Glucose (mg/dL) (65-110) mg/dL Random Glucose 145 H (75-110) mg/dL Calcium 9.9 (8.4-10.2) mg/dL Total Bilirubin 0.9 (0.2-1.3) mg/dl AST 42 (17-59) U/L ALT 39 (21-72) U/L Alkaline Phosphatase 64 (38-126) U/L Troponin I 0.9170 H* (0.00-0.120) ng/mL Total Protein 7.2 (6.3-8.2) G/DL Albumin 4.1 (3.5-5.0) g/dL Globulin 3.1 (2.2-3.9) gm/dL Albumin/Globulin Ratio 1.3 (1.0-2.1) Venous Blood Potassium (3.6-5.2) mmol/L Urine Color (YELLOW) Urine Clarity (Clear) Urine pH (5.0-8.0) Ur Specific [place] (1.003-1.030) Urine Protein (NEGATIVE) mg/dL Urine Glucose (UA) (Normal) mg/dL Urine Ketones (NEGATIVE) mg/dL Urine Blood (NEGATIVE) Urine Nitrate (NEGATIVE) Urine Bilirubin (NEGATIVE) Urine Urobilinogen (0.2-1.0) mg/dL Ur Leukocyte Esterase (Negative) [place]/uL Urine RBC (Auto) (0-3) /hpf Urine Microscopic WBC (0-5) /hpf Ur Squamous Epith Cells (0-5) /hpf Urine Bacteria (<OCC) Hyaline Casts (0-2) /hpf Influenza Typ A,B (EIA) Negative for flu a/b (NEGATIVE) 05/18/17 05/18/17 Range/Units 11:45 11:11 WBC 21.1 H D (4.8-10.8) K/uL RBC 4.84 (4.40-5.90) Mil/uL Hgb 15.2 (12.0-18.0) g/dL Hct 44.6 (35.0-51.0) % MCV 92.3 (80.0-94.0) fl MCH 31.5 H (27.0-31.0) pg MCHC 34.1 (33.0-37.0) g/dL RDW 12.9 (11.5-14.5) % Plt Count 259 (130-400) K/uL MPV 7.5 (7.2-11.7) fl Neut % (Auto) 86.3 H (50.0-75.0) % Lymph % (Auto) 4.2 L (20.0-40.0) % [place] % (Auto) 9.3 (0.0-10.0) % Eos % (Auto) 0.0 (0.0-4.0) % Baso % (Auto) 0.2 (0.0-2.0) % Neut # (Auto) 18.2 H (1.8-7.0) K/uL Lymph # (Auto) 0.9 L (1.0-4.3) K/uL [place] # (Auto) 2.0 H (0.0-0.8) K/uL Eos # (Auto) 0.0 (0.0-0.7) K/uL Baso # (Auto) 0.0 (0.0-0.2) K/uL Neutrophils % (Manual) 83 H (42-75) % Band Neutrophils % 2 (0-2) % Lymphocytes % (Manual) 5 L (20-50) % Monocytes % (Manual) 9 (0-10) % Eosinophils % (Manual) 1 (0-7) % Platelet Estimate Normal (NORMAL) PT (9.8-13.1) Seconds INR (0.9-1.2) APTT (25.6-37.1) Seconds pO2 (30-55) mm/Hg VBG pH (7.32-7.43) VBG pCO2 (40-60) mmHg VBG HCO3 mmol/L VBG Total CO2 (22-28) mmol/L VBG O2 Sat (Calc) (40-65) % VBG Base Excess (0.0-2.0) mmol/L VBG Potassium (3.6-5.2) mmol/L Glucose (75-110) mg/dL Lactate (0.7-2.1) mmol/L FiO2 % Blood Gas Comments Crit Value Called To Crit Value Called By Crit Value Read Back Blood Gas Notified Time Sodium (132-148) mmol/l Potassium (3.6-5.0) MMOL/L Chloride (98-107) mmol/L Carbon Dioxide (22-30) mmol/L Anion Gap (10-20) BUN (9-20) mg/dl Creatinine (0.8-1.5) mg/dl Est GFR ( Amer) Est GFR (Non-Af Amer) POC Glucose (mg/dL) 149 H (65-110) mg/dL Random Glucose (75-110) mg/dL Calcium (8.4-10.2) mg/dL Total Bilirubin (0.2-1.3) mg/dl AST (17-59) U/L ALT (21-72) U/L Alkaline Phosphatase (38-126) U/L Troponin I (0.00-0.120) ng/mL Total Protein (6.3-8.2) G/DL Albumin (3.5-5.0) g/dL Globulin (2.2-3.9) gm/dL Albumin/Globulin Ratio (1.0-2.1) Venous Blood Potassium (3.6-5.2) mmol/L Urine Color (YELLOW) Urine Clarity (Clear) Urine pH (5.0-8.0) Ur Specific [place] (1.003-1.030) Urine Protein (NEGATIVE) mg/dL Urine Glucose (UA) (Normal) mg/dL Urine Ketones (NEGATIVE) mg/dL Urine Blood (NEGATIVE) Urine Nitrate (NEGATIVE) Urine Bilirubin (NEGATIVE) Urine Urobilinogen (0.2-1.0) mg/dL Ur Leukocyte Esterase (Negative) [place]/uL Urine RBC (Auto) (0-3) /hpf Urine Microscopic WBC (0-5) /hpf Ur Squamous Epith Cells (0-5) /hpf Urine Bacteria (<OCC) Hyaline Casts (0-2) /hpf Influenza Typ A,B (EIA) (NEGATIVE) Laboratory Results - last 24 hr 05/18/17 05/18/17 05/18/17 11:11 11:45 11:45 WBC 21.1 H D RBC 4.84 Hgb 15.2 Hct 44.6 MCV 92.3 MCH 31.5 H MCHC 34.1 RDW 12.9 Plt Count 259 MPV 7.5 Neut % (Auto) 86.3 H Lymph % (Auto) 4.2 L [place] % (Auto) 9.3 Eos % (Auto) 0.0 Baso % (Auto) 0.2 Neut # (Auto) 18.2 H Lymph # (Auto) 0.9 L [place] # (Auto) 2.0 H Eos # (Auto) 0.0 Baso # (Auto) 0.0 Neutrophils % (Manual) 83 H Band Neutrophils % 2 Lymphocytes % (Manual) 5 L Monocytes % (Manual) 9 Eosinophils % (Manual) 1 Platelet Estimate Normal PT INR APTT pO2 VBG pH VBG pCO2 VBG HCO3 VBG Total CO2 VBG O2 Sat (Calc) VBG Base Excess VBG Potassium Glucose Lactate FiO2 Blood Gas Comments Crit Value Called To Crit Value Called By Crit Value Read Back Blood Gas Notified Time Sodium 141 Potassium 4.6 Chloride 98 Carbon Dioxide 28 Anion Gap 20 BUN 20 Creatinine 1.0 Est GFR ( Amer) > 60 Est GFR (Non-Af Amer) > 60 POC Glucose (mg/dL) 149 H Random Glucose 145 H Calcium 9.9 Total Bilirubin 0.9 AST 42 ALT 39 Alkaline Phosphatase 64 Troponin I 0.9170 H* Total Protein 7.2 Albumin 4.1 Globulin 3.1 Albumin/Globulin Ratio 1.3 Venous Blood Potassium Urine Color Urine Clarity Urine pH Ur Specific [place] Urine Protein Urine Glucose (UA) Urine Ketones Urine Blood Urine Nitrate Urine Bilirubin Urine Urobilinogen Ur Leukocyte Esterase Urine RBC (Auto) Urine Microscopic WBC Ur Squamous Epith Cells Urine Bacteria Hyaline Casts Influenza Typ A,B (EIA) 05/18/17 05/18/17 05/18/17 11:45 11:45 12:00 WBC RBC Hgb Hct MCV MCH MCHC RDW Plt Count MPV Neut % (Auto) Lymph % (Auto) [place] % (Auto) Eos % (Auto) Baso % (Auto) Neut # (Auto) Lymph # (Auto) [place] # (Auto) Eos # (Auto) Baso # (Auto) Neutrophils % (Manual) Band Neutrophils % Lymphocytes % (Manual) Monocytes % (Manual) Eosinophils % (Manual) Platelet Estimate PT 42.2 H* INR 3.7 H APTT 49.1 H pO2 26 L VBG pH 7.40 VBG pCO2 48 VBG HCO3 26.7 VBG Total CO2 31.2 H VBG O2 Sat (Calc) 56.7 VBG Base Excess 4.0 H VBG Potassium 4.9 Glucose 148 H Lactate 3.3 H FiO2 21.0 Blood Gas Comments Crit Value Called To Laurel stanley Crit Value Called By 23 Crit Value Read Back Y Blood Gas Notified Time 1205 Sodium 136.0 Potassium Chloride 100.0 Carbon Dioxide Anion Gap BUN Creatinine Est GFR ( Amer) Est GFR (Non-Af Amer) POC Glucose (mg/dL) Random Glucose Calcium Total Bilirubin AST ALT Alkaline Phosphatase Troponin I Total Protein Albumin Globulin Albumin/Globulin Ratio Venous Blood Potassium 4.9 Urine Color Urine Clarity Urine pH Ur Specific [place] Urine Protein Urine Glucose (UA) Urine Ketones Urine Blood Urine Nitrate Urine Bilirubin Urine Urobilinogen Ur Leukocyte Esterase Urine RBC (Auto) Urine Microscopic WBC Ur Squamous Epith Cells Urine Bacteria Hyaline Casts Influenza Typ A,B (EIA) Negative for flu a/b 05/18/17 05/18/17 14:20 14:51 WBC RBC Hgb Hct MCV MCH MCHC RDW Plt Count MPV Neut % (Auto) Lymph % (Auto) [place] % (Auto) Eos % (Auto) Baso % (Auto) Neut # (Auto) Lymph # (Auto) [place] # (Auto) Eos # (Auto) Baso # (Auto) Neutrophils % (Manual) Band Neutrophils % Lymphocytes % (Manual) Monocytes % (Manual) Eosinophils % (Manual) Platelet Estimate PT INR APTT pO2 37 VBG pH 7.40 VBG pCO2 40 VBG HCO3 24.2 VBG Total CO2 26.0 VBG O2 Sat (Calc) 78.6 H VBG Base Excess 0.0 VBG Potassium 5.2 Glucose 127 H Lactate 4.1 H* FiO2 21.0 Blood Gas Comments Lactate 4.1 Crit Value Called To rian Mcguire Crit Value Called By 22 Crit Value Read Back Y Blood Gas Notified Time 1459 Sodium 136.0 Potassium Chloride 102.0 Carbon Dioxide Anion Gap BUN Creatinine Est GFR ( Amer) Est GFR (Non-Af Amer) POC Glucose (mg/dL) Random Glucose Calcium Total Bilirubin AST ALT Alkaline Phosphatase Troponin I Total Protein Albumin Globulin Albumin/Globulin Ratio Venous Blood Potassium 5.2 Urine Color Yellow Urine Clarity Slighty-cloudy Urine pH 5.0 Ur Specific [place] 1.016 Urine Protein Negative Urine Glucose (UA) Neg Urine Ketones Negative Urine Blood Negative Urine Nitrate Negative Urine Bilirubin Negative Urine Urobilinogen 0.2-1.0 Ur Leukocyte Esterase Neg Urine RBC (Auto) 3 Urine Microscopic WBC 1 Ur Squamous Epith Cells < 1 Urine Bacteria Rare Hyaline Casts 0-2 Influenza Typ A,B (EIA) EKG/Cardiology Studies: Cardiology / EKG Studies 05/18/17 11:45 EKG [ELECTROCARDIOGRAM] Stat Comment: Mode Of Transportation: PORTABLE Reason For Exam: Palpitations Fingerstick Blood Sugar Results: 149 Review of Systems - Review of Systems All systems: reviewed and no additional remarkable complaints except (as above) Critical Care Progress Note - Ventilator Checklist Head of Bed 30 Degrees: Yes - Extremities/Vascular Does the Patient have a Central Venous Catheter?: No Does the Patient need a Central Venous Catheter?: No (may need CVC access if Lactate continue to rise, or needs vasopressors) - Prophylaxis GI Prophylaxis GI: Not Indicated - Prophylaxis DVT Prophylaxis DVT: SCDs
[2017-05-18] MEDS ORDERED: Iohexol 300 100 ML IJ ONE (17:18)
[2017-05-18] MEDS ORDERED: Sodium Chloride 0.9% 100 ML ONE (17:18)
--- NOTE | 2017-05-18 17:57 | CT ---
PROCEDURE: CT HEAD WITHOUT CONTRAST. HISTORY: altered, INR-elevated COMPARISON: None available. TECHNIQUE: Axial computed tomography images were obtained through the head/brain without intravenous contrast. Radiation dose: Total exam DLP = 876.09 mGy-cm. This CT exam was performed using one or more of the following dose reduction techniques: Automated exposure control, adjustment of the mA and/or kV according to patient size, and/or use of iterative reconstruction technique. FINDINGS: Streak artifact obscures evaluation of the skullbase. HEMORRHAGE: No intracranial hemorrhage. BRAIN: Diffuse atrophy with prominence of the ventricles and sulci noted. No mass effect or edema. Mild scattered white matter hypodensities, which are nonspecific, but often seen with chronic microvascular ischemic disease. Please note that MRI with diffusion imaging is more sensitive in the detection of acute ischemic event. VENTRICLES: No hydrocephalus. CALVARIUM: Unremarkable. PARANASAL SINUSES: Unremarkable as visualized. No significant inflammatory changes. MASTOID AIR CELLS: Unremarkable as visualized. No inflammatory changes. OTHER FINDINGS: None. IMPRESSION: Scattered nonspecific white matter changes. Generalized atrophy.
[2017-05-18 18:15] LABS: BASO % 0.2 % (0.0-2.0); HEMOGLOBIN 14.6 g/dL (12.0-18.0); LYMPH # 0.8 K/uL (1.0-4.3); LYMPH % 4.5 % (20.0-40.0); MEAN CELL VOLUME 92.1 fl (80.0-94.0); MEAN CORPUSCULAR HEMOGLOBIN 31.1 pg (27.0-31.0); MEAN CORPUSCULAR HGB CONC 33.8 g/dL (33.0-37.0); MEAN PLATELET VOLUME 7.2 fl (7.2-11.7); MONO # 1.1 K/uL (0.0-0.8); MONO % 6.2 % (0.0-10.0); NEUT # 16.6 K/uL (1.8-7.0); NEUT % 89.1 % (50.0-75.0); NRBC % 0.1 % (0.0-0.0); RBC 4.7 Mil/uL (4.40-5.90); RED CELL DISTRIBUTION WIDTH 12.9 % (11.5-14.5); WHITE BLOOD COUNT 18.7 K/uL (4.8-10.8)
[2017-05-18 18:26] LABS: ALB/GLOB RATIO 1.2 (1.0-2.1); ALBUMIN 3.3 g/dL (3.5-5.0); ALT/SGPT 35 U/L (21-72); AST/SGOT 40 U/L (17-59); BLOOD UREA NITROGEN 21 mg/dl (9-20); CALCIUM 8.4 mg/dL (8.4-10.2); GFR AFRICAN-AMERICAN > 60; GFR NON-AFRICAN AMERICAN > 60
--- NOTE | 2017-05-18 18:49 | CT ---
PROCEDURE: CT Chest, Abdomen and Pelvis with intravenous contrast HISTORY: Fever, sepsis/pneumonia. COMPARISON: 01/24/2013 CT thorax TECHNIQUE: IV dose administered: 95 cc Omnipaque 300 Radiation dose: Total exam DLP = 953.84 mGy-cm. This CT exam was performed using one or more of the following dose reduction techniques: Automated exposure control, adjustment of the mA and/or kV according to patient size, and/or use of iterative reconstruction technique. FINDINGS: CT CHEST WITH CONTRAST: LUNGS: Spiculated mass left upper lobe not apparent on the prior CT of the thorax from 01/24/2013. The mass measures 9 x 16 mm. Focal area of consolidation primarily affecting the lingula likely acute pneumonia. There is no (2 to this on the remote CT. Dependent atelectasis/ infiltrate basilar segment left lower lobe. Underlying hyperinflation/ manifestations of COPD. Postoperative changes affecting the left upper lobe. MEDIASTINUM: Unremarkable. Normal caliber aorta and pulmonary arterial trunk. No aortic dissection. Normal size heart. LYMPH NODES: Unremarkable. PLEURA: Unremarkable. No pneumothorax. No pleural fluid. BONES: Unremarkable. OTHER FINDINGS: None. CT ABDOMEN AND PELVIS: LIVER: Hepatic steatosis. No focal masses. No intrahepatic bile duct dilatation or perihepatic ascites. GALLBLADDER AND BILE DUCTS: Unremarkable. PANCREAS: Unremarkable. No gross lesion or ductal dilatation. SPLEEN: Unremarkable. ADRENALS: Unremarkable. No mass. KIDNEYS AND URETERS: Unremarkable. No hydronephrosis. No solid mass. VASCULATURE: Unremarkable. No aortic aneurysm. BOWEL: Unremarkable. No obstruction. No gross mural thickening. APPENDIX: Normal appendix. PERITONEUM: Unremarkable. No free fluid. No free air. LYMPH NODES: Unremarkable. No enlarged lymph nodes. BLADDER: Unremarkable. REPRODUCTIVE: Unremarkable. BONES: No acute fracture. OTHER FINDINGS: None. IMPRESSION: 1. Spiculated mass left upper lobe a new finding compared the prior CT 01/24/2013. 2. Dense consolidative process affecting the lingula primarily alveolar with small loculation of air suggesting an necrotic process. 3. Basilar infiltrate left lower lobe. 4. No suspicious/acute findings in the abdomen, retroperitoneum or pelvis
[2017-05-18] MEDS ORDERED: Dextrose 50% SYRINGE Inj (50 ml) IV PRN (20:31)
[2017-05-18] MEDS ORDERED: Glucagon Recombinant 1 mg Inj IM PRN (20:31)
[2017-05-18] MEDS: Fluticasone-Salmeterol 500-50mcg Diskus IH SCH (21:44)
[2017-05-18] MEDS: Insulin Detemir 100 Units/ml Inj SC SCH (22:09)
[2017-05-18] MEDS ORDERED: Piperacillin/Tazobact 3.375 gm Inj IVPB ONE (22:11)
[2017-05-18] MEDS: Piperacillin/Tazobact 3.375 GM in Sodium Chloride 0.9% 100 ML IVPB SCH (22:13)
[2017-05-18] MEDS ORDERED: Dextrose 5%/0.45% NS 1,000 ML IV SCH (22:15)
[2017-05-19] MEDS: Piperacillin/Tazobact 3.375 GM in Sodium Chloride 0.9% 100 ML IVPB SCH ×4 (04:01→21:43)
[2017-05-19 05:19] LABS: ABG ALLEN TEST YES; ARTERIAL BLOOD GAS HEMOGLOBIN 12.9 g/dL (11.7-17.4); ARTERIAL BLOOD GAS O2 CAPACITY 17.6 mL/dL (16-24); ARTERIAL BLOOD GAS O2 CONTENT 17.2 ML/dL (15-23); ARTERIAL BLOOD GAS O2 SAT 97.8 % (95-98); ARTERIAL BLOOD GAS PCO2 34 mm/Hg (35-45); ARTERIAL BLOOD GAS PH 7.47 (7.35-7.45); ARTERIAL BLOOD GAS PO2 85 mm/Hg (80-100); ARTERIAL BLOOD GAS TCO2 25.7 mmol/L (22-28)
[2017-05-19 05:48] LABS: BASO # 0.1 K/uL (0.0-0.2); BASO % 0.3 % (0.0-2.0); LYMPH # 1.3 K/uL (1.0-4.3); LYMPH % 6.4 % (20.0-40.0); MEAN CELL VOLUME 92.7 fl (80.0-94.0); MEAN CORPUSCULAR HEMOGLOBIN 31.9 pg (27.0-31.0); MEAN CORPUSCULAR HGB CONC 34.5 g/dL (33.0-37.0); MEAN PLATELET VOLUME 7.3 fl (7.2-11.7); MONO # 1.3 K/uL (0.0-0.8); MONO % 6.3 % (0.0-10.0); NEUT # 17.5 K/uL (1.8-7.0); RBC 4.07 Mil/uL (4.40-5.90); RED CELL DISTRIBUTION WIDTH 13.2 % (11.5-14.5); WHITE BLOOD COUNT 20.1 K/uL (4.8-10.8)
[2017-05-19 05:53] LABS: INR 2.8 (0.9-1.2); PARTIAL THROMBOPLASTIN TIME 44.6 Seconds (25.6-37.1); PROTHROMBIN TIME 31.2 Seconds (9.8-13.1)
[2017-05-19 06:08] LABS: ALB/GLOB RATIO 1.1 (1.0-2.1); ALBUMIN 2.9 g/dL (3.5-5.0); ALT/SGPT 38 U/L (21-72); AST/SGOT 63 U/L (17-59); BLOOD UREA NITROGEN 25 mg/dl (9-20); CALCIUM 8.2 mg/dL (8.4-10.2); GFR AFRICAN-AMERICAN > 60; GFR NON-AFRICAN AMERICAN > 60
[2017-05-19] MEDS ORDERED: Sodium Chloride 3% for Inhalation 4 ML VIAL.NEB IH PRN (08:38)
--- NOTE | 2017-05-19 08:46 | CP.PCM.PN ---
Subjective - Date & Time of Evaluation Date of Evaluation: 05/19/17 Time of Evaluation: 08:42 - Subjective Subjective: CT chest reveals a large area of suspected necrotizing pneumonia on the left parahilar area, not visible on plain CXR. There has been no further temperature elevation, but the leukocytosis remains the same. He offers no complaint of cough or chest discomfort. There is no sputum expectoration. Cardiac enzymes continued to increase, renal function has been stable, mild elevation of AST is noted. Procalcitonin has been collected, but unreported so far. His vital signs have remained stable. Well oxygenated. Still with mildly flushed facies. Neck supple and trachea midline. No dullness to chest percussion. Breath sounds remain markedly diminished bilaterally. No audible wheezing or bronchial breathing. Rare dry rales in the lower lobes. Rare scattered rhonchi. Heart sounds are veryu distant,irreg, not tachy. No dependant edema, no cyanosis, no rash. ? necrotizing pneumonia in parahilar region of the left upper lobe. Cannot rule out neoplastic disease, but unlikely since CT chest at [facility] only 6-8 weeks ago allegedly did not show this. NSTEMI. Severe COPD. Sepsis syndrome. Induced sputum for culture. Strep, Mycoplasma and Legionella testing. Continue High Flow Nasal Canula. Avoid beta adrenergic in light of positive troponins. levalbuterol PRN only. Will continue LAMA. Will discuss with outpatient surgery rn and process specialist. Objective - Vital Signs/Intake and Output Vital Signs (last 24 hours): Temp Pulse Resp BP Pulse Ox 98.0 F 77 20 124/43 L 98 05/19/17 08:18 05/19/17 08:18 05/19/17 08:18 05/19/17 08:18 05/19/17 08:18 Intake and Output: 05/18/17 05/19/17 23:59 11:59 Intake Total 700 Output Total 350 Balance -350 700 - Medications Medications: Current Medications Atorvastatin Calcium (Lipitor) 20 mg PO DAILY [facility] Dextrose (Dextrose 50% Inj) 0 ml IV STAT PRN; Protocol PRN Reason: Hypoglycemia Protocol Dextrose (Glutose 15) 0 gm PO ONCE PRN; Protocol PRN Reason: Hypoglycemia Protocol Digoxin (Lanoxin) 0.25 mg PO DAILY ULISES Famotidine (Pepcid) 20 mg PO Q12 ULISES Last Admin: 05/18/17 21:50 Dose: 20 mg Finasteride (Proscar) 5 mg PO DAILY [facility] Gabapentin (Neurontin) 300 mg PO HS [facility] Last Admin: 05/18/17 22:14 Dose: 300 mg Glucagon (Glucagen Diagnostic Kit) 0 mg IM STAT PRN; Protocol PRN Reason: Hypoglycemia Protocol Piperacillin Sod/Tazobactam (Sod 3.375 gm/ Sodium Chloride) 100 mls @ 100 mls/ hr IVPB Q6 ULISES PRN Reason: Protocol Last Admin: 05/19/17 04:01 Dose: 100 mls/hr Dextrose/Sodium Chloride (Dextrose 5%/0.45% Ns 1000 Ml) 1,000 mls @ 100 mls/hr IV .Q10H [facility] Stop: 05/19/17 22:07 Last Admin: 05/18/17 22:26 Dose: 100 mls/hr Insulin Detemir (Levemir) 20 units SC HS [facility] Last Admin: 05/18/17 22:09 Dose: Not Given Levalbuterol HCl (Xopenex) 1.25 mg INH RQ8 PRN PRN Reason: Shortness of Breath Losartan Potassium (Cozaar) 25 mg PO DAILY [facility] Fluticasone/Salmeterol (Advair Diskus 500/50) 1 puff IH Q12 [facility] Last Admin: 05/18/17 21:44 Dose: 1 inhaler Tiotropium [place] (Spiriva) 18 mcg INH DAILY [facility] - Labs Labs: 05/19/17 04:50 05/19/17 04:50 PT 31.2 Seconds (9.8-13.1) H D 05/19/17 04:50 INR 2.8 (0.9-1.2) H D 05/19/17 04:50 APTT 44.6 Seconds (25.6-37.1) H 05/19/17 04:50 Assessment and Plan (1) Myocardial infarction Status: Acute (2) Fever Status: Acute (3) Leukocytosis Status: Acute (4) Lactic acidosis Status: Acute (5) Pulmonary emphysema Status: Chronic (6) Pulmonary nodules/lesions, multiple Status: Chronic (7) Atrial fibrillation Status: Chronic (8) Type 2 diabetes mellitus Status: Chronic
[2017-05-19] MEDS: Digoxin 250 mcg (0.25 mg) Tab PO SCH (08:48)
--- NOTE | 2017-05-19 08:56 | CP.CCUPN ---
CCU Subjective - Physician Review Subjective (Free Text): No chest pain, appears mildly tachypneic, on HFNC with 40% oxygen at 35 LPM, SPO2 99%, borderline u/o overnight at 350 ml after receiving almost 2 L fluid challenge last evening. Other Vitals and I/Os reviewed. Tnax overnight since admission 99.7F. BP trends reveal a lower ROS: No other pertinent negs or positives on 10+ system review, intubated. PMSFH: Left Lung and Back Surgery; former smoker, denies ETOH abuse. All other historical Nursing and physician documentation reviewed to date; no new pertinent info noted relevant to current medical problems. EXAM- HEENT: no icterus, no gaze preference, pupils equal and reactive, no icterus. NECK: No JVD, supple, carotids equal upstroke bilat/no bruits CHEST: decreased BS bases, otherwise clear bilat, no wheezes audible HEART: irregular tachy, distant, S1S2, no rubs or murmurs ABD: soft, no distention, no tympany, no palp tenderness, BS hypoactive. EXT: Trace edema. No peripheral/ digital cyanosis, no calf tenderness or palpable cords, distal pulses intact and symmetrical. NEURO: no gross focal motor deficits. SKIN: no rashes, warm and dry. CXR: (my interp)- pending EKG: A fib 84/min, anteroseptal ST depressions and T waves have near- normalized compared to yesterdays two studies. IMPRESSION / MAJOR PROBLEMS NOW: 1. Acute/subacute NSTEMI: can be a mimic of Sepsis with shock. 2. AMS- C T Brain negative, ?/ medication effect- Gabapentin held. r/o other Metabolic Encephalopathy 3. Severe Sepsis, etiology: Colitis- rule out C diff infection, intra- abdominal abscess; ischemic bowel disease? Lactates have normalized, though elevations could have been from cardiogenic etiology with hypoperfusion state. 4. COPD/Bullous Lung Disease with Pulm Nodules and new left hilar mass. PLAN: 1. Still mildly dyspneic with exertion, check repeat CXR this AM. Get ECHO. 2. Serial Trops reviewed, get ECHO. ASA given in ER, continue statin, add cardioselective BBs. Already anticoagulated; consider anti-platelet therapy- loading for Clopidogrel andrea patient. 3. Empiric abx coverage; Panculture. PCT level still pending. 4. Formal cardiology eval for appropriateness of C Cath. 5. Full Code status. CCU Objective - Vital Signs / Intake & Output Vital Signs (Last 4 hours): Vital Signs Temp Pulse Resp BP Pulse Ox 05/19/17 08:47 80 124/43 L 05/19/17 08:18 98.0 F 77 20 124/43 L 98 05/19/17 06:02 81 21 118/47 L 99 05/19/17 05:00 24 Intake and Output (Last 8hrs): Intake & Output 05/18/17 05/19/17 05/19/17 22:59 06:59 14:59 Intake Total 700 Output Total 100 250 350 Balance -100 450 -350 Weight 149 lb 3.2 oz Intake: IV 600 Intake, Piggyback 100 Output: Urine 100 250 350 Urine, Voided 100 250 350 - Medications Active Medications: Active Medications Generic Name Dose Route Start Last Admin Trade Name Freq PRN Reason Stop Dose Admin Atorvastatin Calcium 20 mg 05/19/17 09:00 05/19/17 08:47 Lipitor PO 20 mg DAILY ULISES Administration Dextrose 0 ml 05/18/17 20:31 Dextrose 50% Inj IV STAT PRN Hypoglycemia Protocol Protocol Dextrose 0 gm 05/18/17 20:31 Glutose 15 PO ONCE PRN Hypoglycemia Protocol Protocol Digoxin 0.25 mg 05/19/17 09:00 05/19/17 08:48 Lanoxin PO 0.25 mg DAILY ULISES Administration Famotidine 20 mg 05/18/17 21:00 05/19/17 08:48 Pepcid PO 20 mg Q12 ULISES Administration Finasteride 5 mg 05/19/17 09:00 05/19/17 08:47 Proscar PO 5 mg DAILY ULISES Administration Gabapentin 300 mg 05/18/17 22:00 05/18/17 22:14 Neurontin PO 300 mg HS ULISES Administration Glucagon 0 mg 05/18/17 20:31 Glucagen Diagnostic Kit IM STAT PRN Hypoglycemia Protocol Protocol Piperacillin Sod/Tazobactam 100 mls @ 100 mls/hr 05/18/17 22:00 05/19/17 04: 01 Sod 3.375 gm/ Sodium Chloride IVPB 100 mls/hr Q6 ULISES Administration Protocol Dextrose/Sodium Chloride 1,000 mls @ 100 mls/hr 05/18/17 22:15 05/18/17 22:26 Dextrose 5%/0.45% Ns 1000 Ml IV 05/19/17 22:07 100 mls/hr .Q10H ULISES Administration Insulin Detemir 20 units 05/18/17 22:00 05/18/17 22:09 Levemir SC Not Given HS [facility] Levalbuterol HCl 1.25 mg 05/18/17 16:23 Xopenex INH RQ8 PRN Shortness of Breath Losartan Potassium 25 mg 05/19/17 09:00 05/19/17 08:47 Cozaar PO 25 mg DAILY ULISES Administration Fluticasone/Salmeterol 1 puff 05/18/17 21:00 05/18/17 21:44 Advair Diskus 500/50 IH 1 inhaler Q12 ULISES Administration Tiotropium Rupert 18 mcg 05/19/17 09:00 Spiriva INH DAILY ULISES - Patient Studies Lab Studies: Lab Studies 05/19/17 05/19/17 05/19/17 Range/Units 05:08 05:00 04:53 WBC (4.8-10.8) K/uL RBC (4.40-5.90) Mil/uL Hgb (12.0-18.0) g/dL Hct (35.0-51.0) % MCV (80.0-94.0) fl MCH (27.0-31.0) pg MCHC (33.0-37.0) g/dL RDW (11.5-14.5) % Plt Count (130-400) K/uL MPV (7.2-11.7) fl Neut % (Auto) (50.0-75.0) % Lymph % (Auto) (20.0-40.0) % [place] % (Auto) (0.0-10.0) % Eos % (Auto) (0.0-4.0) % Baso % (Auto) (0.0-2.0) % Neut # (Auto) (1.8-7.0) K/uL Lymph # (Auto) (1.0-4.3) K/uL [place] # (Auto) (0.0-0.8) K/uL Eos # (Auto) (0.0-0.7) K/uL Baso # (Auto) (0.0-0.2) K/uL Neutrophils % (Manual) (42-75) % Band Neutrophils % (0-2) % Lymphocytes % (Manual) (20-50) % Monocytes % (Manual) (0-10) % Eosinophils % (Manual) (0-7) % Platelet Estimate (NORMAL) PT (9.8-13.1) Seconds INR (0.9-1.2) APTT (25.6-37.1) Seconds pCO2 34 L (35-45) mm/Hg pO2 85 (30-55) mm/Hg HCO3 26.0 (21-28) mmol/L ABG pH 7.47 H (7.35-7.45) ABG Total CO2 25.7 (22-28) mmol/L ABG O2 Saturation 97.8 (95-98) % ABG O2 Content 17.2 (15-23) ML/dL ABG Base Excess 1.4 (-2.0-3.0) mmol/L ABG Hemoglobin 12.9 (11.7-17.4) g/dL ABG Carboxyhemoglobin 2.2 H (0.5-1.5) % POC ABG HHb (Measured) 2.1 (0.0-5.0) % ABG Methemoglobin 1.2 (0.0-3.0) % ABG O2 Capacity 17.6 (16-24) mL/dL Scout Test Yes VBG pH (7.32-7.43) VBG pCO2 (40-60) mmHg VBG HCO3 mmol/L VBG Total CO2 (22-28) mmol/L VBG O2 Sat (Calc) (40-65) % VBG Base Excess (0.0-2.0) mmol/L VBG Potassium (3.6-5.2) mmol/L A-a O2 Difference 158.0 mm/Hg Hgb O2 Saturation 94.5 L (95.0-98.0) % Glucose (75-110) mg/dL Lactate (0.7-2.1) mmol/L Liter Flow 35 Vent Mode Hfov FiO2 40.0 % Blood Gas Comments Crit Value Called To Crit Value Called By Crit Value Read Back Blood Gas Notified Time Sodium (132-148) mmol/l Potassium (3.6-5.0) MMOL/L Chloride (98-107) mmol/L Carbon Dioxide (22-30) mmol/L Anion Gap (10-20) BUN (9-20) mg/dl Creatinine (0.8-1.5) mg/dl Est GFR ( Amer) Est GFR (Non-Af Amer) POC Glucose (mg/dL) 126 H (65-110) mg/dL Random Glucose (75-110) mg/dL Lactic Acid 1.8 (0.7-2.1) MMOL/L Calcium (8.4-10.2) mg/dL Magnesium (1.6-2.3) MG/DL Total Bilirubin (0.2-1.3) mg/dl AST (17-59) U/L ALT (21-72) U/L Alkaline Phosphatase (38-126) U/L Troponin I (0.00-0.120) ng/mL Total Protein (6.3-8.2) G/DL Albumin (3.5-5.0) g/dL Globulin (2.2-3.9) gm/dL Albumin/Globulin Ratio (1.0-2.1) Venous Blood Potassium (3.6-5.2) mmol/L Urine Color (YELLOW) Urine Clarity (Clear) Urine pH (5.0-8.0) Ur Specific Mathews (1.003-1.030) Urine Protein (NEGATIVE) mg/dL Urine Glucose (UA) (Normal) mg/dL Urine Ketones (NEGATIVE) mg/dL Urine Blood (NEGATIVE) Urine Nitrate (NEGATIVE) Urine Bilirubin (NEGATIVE) Urine Urobilinogen (0.2-1.0) mg/dL Ur Leukocyte Esterase (Negative) Nakul/uL Urine RBC (Auto) (0-3) /hpf Urine Microscopic WBC (0-5) /hpf Ur Squamous Epith Cells (0-5) /hpf Urine Bacteria (<OCC) Hyaline Casts (0-2) /hpf Digoxin (0.8-2.0) ng/mL Influenza Typ A,B (EIA) (NEGATIVE) Blood Type Antibody Screen BBK History Checked 05/19/17 05/19/17 05/19/17 Range/Units 04:50 04:50 04:50 WBC 20.1 H (4.8-10.8) K/uL RBC 4.07 L (4.40-5.90) Mil/uL Hgb 13.0 (12.0-18.0) g/dL Hct 37.8 (35.0-51.0) % MCV 92.7 (80.0-94.0) fl MCH 31.9 H (27.0-31.0) pg MCHC 34.5 (33.0-37.0) g/dL RDW 13.2 (11.5-14.5) % Plt Count 207 (130-400) K/uL MPV 7.3 (7.2-11.7) fl Neut % (Auto) 87.0 H (50.0-75.0) % Lymph % (Auto) 6.4 L (20.0-40.0) % [place] % (Auto) 6.3 (0.0-10.0) % Eos % (Auto) 0.0 (0.0-4.0) % Baso % (Auto) 0.3 (0.0-2.0) % Neut # (Auto) 17.5 H (1.8-7.0) K/uL Lymph # (Auto) 1.3 (1.0-4.3) K/uL [place] # (Auto) 1.3 H (0.0-0.8) K/uL Eos # (Auto) 0.0 (0.0-0.7) K/uL Baso # (Auto) 0.1 (0.0-0.2) K/uL Neutrophils % (Manual) (42-75) % Band Neutrophils % (0-2) % Lymphocytes % (Manual) (20-50) % Monocytes % (Manual) (0-10) % Eosinophils % (Manual) (0-7) % Platelet Estimate (NORMAL) PT 31.2 H D (9.8-13.1) Seconds INR 2.8 H D (0.9-1.2) APTT 44.6 H (25.6-37.1) Seconds pCO2 (35-45) mm/Hg pO2 (30-55) mm/Hg HCO3 (21-28) mmol/L ABG pH (7.35-7.45) ABG Total CO2 (22-28) mmol/L ABG O2 Saturation (95-98) % ABG O2 Content (15-23) ML/dL ABG Base Excess (-2.0-3.0) mmol/L ABG Hemoglobin (11.7-17.4) g/dL ABG Carboxyhemoglobin (0.5-1.5) % POC ABG HHb (Measured) (0.0-5.0) % ABG Methemoglobin (0.0-3.0) % ABG O2 Capacity (16-24) mL/dL Scout Test VBG pH (7.32-7.43) VBG pCO2 (40-60) mmHg VBG HCO3 mmol/L VBG Total CO2 (22-28) mmol/L VBG O2 Sat (Calc) (40-65) % VBG Base Excess (0.0-2.0) mmol/L VBG Potassium (3.6-5.2) mmol/L A-a O2 Difference mm/Hg Hgb O2 Saturation (95.0-98.0) % Glucose (75-110) mg/dL Lactate (0.7-2.1) mmol/L Liter Flow Vent Mode FiO2 % Blood Gas Comments Crit Value Called To Crit Value Called By Crit Value Read Back Blood Gas Notified Time Sodium 138 (132-148) mmol/l Potassium 4.1 (3.6-5.0) MMOL/L Chloride 99 (98-107) mmol/L Carbon Dioxide 26 (22-30) mmol/L Anion Gap 17 (10-20) BUN 25 H (9-20) mg/dl Creatinine 1.1 (0.8-1.5) mg/dl Est GFR ( Amer) > 60 Est GFR (Non-Af Amer) > 60 POC Glucose (mg/dL) (65-110) mg/dL Random Glucose 132 H (75-110) mg/dL Lactic Acid (0.7-2.1) MMOL/L Calcium 8.2 L (8.4-10.2) mg/dL Magnesium (1.6-2.3) MG/DL Total Bilirubin 1.7 H (0.2-1.3) mg/dl AST 63 H D (17-59) U/L ALT 38 (21-72) U/L Alkaline Phosphatase 38 (38-126) U/L Troponin I (0.00-0.120) ng/mL Total Protein 5.6 L (6.3-8.2) G/DL Albumin 2.9 L (3.5-5.0) g/dL Globulin 2.7 (2.2-3.9) gm/dL Albumin/Globulin Ratio 1.1 (1.0-2.1) Venous Blood Potassium (3.6-5.2) mmol/L Urine Color (YELLOW) Urine Clarity (Clear) Urine pH (5.0-8.0) Ur Specific Mathews (1.003-1.030) Urine Protein (NEGATIVE) mg/dL Urine Glucose (UA) (Normal) mg/dL Urine Ketones (NEGATIVE) mg/dL Urine Blood (NEGATIVE) Urine Nitrate (NEGATIVE) Urine Bilirubin (NEGATIVE) Urine Urobilinogen (0.2-1.0) mg/dL Ur Leukocyte Esterase (Negative) Nakul/uL Urine RBC (Auto) (0-3) /hpf Urine Microscopic WBC (0-5) /hpf Ur Squamous Epith Cells (0-5) /hpf Urine Bacteria (<OCC) Hyaline Casts (0-2) /hpf Digoxin (0.8-2.0) ng/mL Influenza Typ A,B (EIA) (NEGATIVE) Blood Type Antibody Screen BBK History Checked 05/19/17 05/19/17 05/19/17 Range/Units 04:50 00:45 00:45 WBC (4.8-10.8) K/uL RBC (4.40-5.90) Mil/uL Hgb (12.0-18.0) g/dL Hct (35.0-51.0) % MCV (80.0-94.0) fl MCH (27.0-31.0) pg MCHC (33.0-37.0) g/dL RDW (11.5-14.5) % Plt Count (130-400) K/uL MPV (7.2-11.7) fl Neut % (Auto) (50.0-75.0) % Lymph % (Auto) (20.0-40.0) % [place] % (Auto) (0.0-10.0) % Eos % (Auto) (0.0-4.0) % Baso % (Auto) (0.0-2.0) % Neut # (Auto) (1.8-7.0) K/uL Lymph # (Auto) (1.0-4.3) K/uL [place] # (Auto) (0.0-0.8) K/uL Eos # (Auto) (0.0-0.7) K/uL Baso # (Auto) (0.0-0.2) K/uL Neutrophils % (Manual) (42-75) % Band Neutrophils % (0-2) % Lymphocytes % (Manual) (20-50) % Monocytes % (Manual) (0-10) % Eosinophils % (Manual) (0-7) % Platelet Estimate (NORMAL) PT (9.8-13.1) Seconds INR (0.9-1.2) APTT (25.6-37.1) Seconds pCO2 (35-45) mm/Hg pO2 (30-55) mm/Hg HCO3 (21-28) mmol/L ABG pH (7.35-7.45) ABG Total CO2 (22-28) mmol/L ABG O2 Saturation (95-98) % ABG O2 Content (15-23) ML/dL ABG Base Excess (-2.0-3.0) mmol/L ABG Hemoglobin (11.7-17.4) g/dL ABG Carboxyhemoglobin (0.5-1.5) % POC ABG HHb (Measured) (0.0-5.0) % ABG Methemoglobin (0.0-3.0) % ABG O2 Capacity (16-24) mL/dL Scout Test VBG pH (7.32-7.43) VBG pCO2 (40-60) mmHg VBG HCO3 mmol/L VBG Total CO2 (22-28) mmol/L VBG O2 Sat (Calc) (40-65) % VBG Base Excess (0.0-2.0) mmol/L VBG Potassium (3.6-5.2) mmol/L A-a O2 Difference mm/Hg Hgb O2 Saturation (95.0-98.0) % Glucose (75-110) mg/dL Lactate (0.7-2.1) mmol/L Liter Flow Vent Mode FiO2 % Blood Gas Comments Crit Value Called To Crit Value Called By Crit Value Read Back Blood Gas Notified Time Sodium (132-148) mmol/l Potassium (3.6-5.0) MMOL/L Chloride (98-107) mmol/L Carbon Dioxide (22-30) mmol/L Anion Gap (10-20) BUN (9-20) mg/dl Creatinine (0.8-1.5) mg/dl Est GFR ( Amer) Est GFR (Non-Af Amer) POC Glucose (mg/dL) 124 H (65-110) mg/dL Random Glucose (75-110) mg/dL Lactic Acid (0.7-2.1) MMOL/L Calcium (8.4-10.2) mg/dL Magnesium (1.6-2.3) MG/DL Total Bilirubin (0.2-1.3) mg/dl AST (17-59) U/L ALT (21-72) U/L Alkaline Phosphatase (38-126) U/L Troponin I 1.0500 H* (0.00-0.120) ng/mL Total Protein (6.3-8.2) G/DL Albumin (3.5-5.0) g/dL Globulin (2.2-3.9) gm/dL Albumin/Globulin Ratio (1.0-2.1) Venous Blood Potassium (3.6-5.2) mmol/L Urine Color (YELLOW) Urine Clarity (Clear) Urine pH (5.0-8.0) Ur Specific Mathews (1.003-1.030) Urine Protein (NEGATIVE) mg/dL Urine Glucose (UA) (Normal) mg/dL Urine Ketones (NEGATIVE) mg/dL Urine Blood (NEGATIVE) Urine Nitrate (NEGATIVE) Urine Bilirubin (NEGATIVE) Urine Urobilinogen (0.2-1.0) mg/dL Ur Leukocyte Esterase (Negative) Nakul/uL Urine RBC (Auto) (0-3) /hpf Urine Microscopic WBC (0-5) /hpf Ur Squamous Epith Cells (0-5) /hpf Urine Bacteria (<OCC) Hyaline Casts (0-2) /hpf Digoxin (0.8-2.0) ng/mL Influenza Typ A,B (EIA) (NEGATIVE) Blood Type A POSITIVE Antibody Screen Negative BBK History Checked No verified bt 05/18/17 05/18/17 05/18/17 Range/Units 21:41 19:50 19:50 WBC (4.8-10.8) K/uL RBC (4.40-5.90) Mil/uL Hgb (12.0-18.0) g/dL Hct (35.0-51.0) % MCV (80.0-94.0) fl MCH (27.0-31.0) pg MCHC (33.0-37.0) g/dL RDW (11.5-14.5) % Plt Count (130-400) K/uL MPV (7.2-11.7) fl Neut % (Auto) (50.0-75.0) % Lymph % (Auto) (20.0-40.0) % [place] % (Auto) (0.0-10.0) % Eos % (Auto) (0.0-4.0) % Baso % (Auto) (0.0-2.0) % Neut # (Auto) (1.8-7.0) K/uL Lymph # (Auto) (1.0-4.3) K/uL [place] # (Auto) (0.0-0.8) K/uL Eos # (Auto) (0.0-0.7) K/uL Baso # (Auto) (0.0-0.2) K/uL Neutrophils % (Manual) (42-75) % Band Neutrophils % (0-2) % Lymphocytes % (Manual) (20-50) % Monocytes % (Manual) (0-10) % Eosinophils % (Manual) (0-7) % Platelet Estimate (NORMAL) PT (9.8-13.1) Seconds INR (0.9-1.2) APTT (25.6-37.1) Seconds pCO2 (35-45) mm/Hg pO2 (30-55) mm/Hg HCO3 (21-28) mmol/L ABG pH (7.35-7.45) ABG Total CO2 (22-28) mmol/L ABG O2 Saturation (95-98) % ABG O2 Content (15-23) ML/dL ABG Base Excess (-2.0-3.0) mmol/L ABG Hemoglobin (11.7-17.4) g/dL ABG Carboxyhemoglobin (0.5-1.5) % POC ABG HHb (Measured) (0.0-5.0) % ABG Methemoglobin (0.0-3.0) % ABG O2 Capacity (16-24) mL/dL Scout Test VBG pH (7.32-7.43) VBG pCO2 (40-60) mmHg VBG HCO3 mmol/L VBG Total CO2 (22-28) mmol/L VBG O2 Sat (Calc) (40-65) % VBG Base Excess (0.0-2.0) mmol/L VBG Potassium (3.6-5.2) mmol/L A-a O2 Difference mm/Hg Hgb O2 Saturation (95.0-98.0) % Glucose (75-110) mg/dL Lactate (0.7-2.1) mmol/L Liter Flow Vent Mode FiO2 % Blood Gas Comments Crit Value Called To Crit Value Called By Crit Value Read Back Blood Gas Notified Time Sodium (132-148) mmol/l Potassium (3.6-5.0) MMOL/L Chloride (98-107) mmol/L Carbon Dioxide (22-30) mmol/L Anion Gap (10-20) BUN (9-20) mg/dl Creatinine (0.8-1.5) mg/dl Est GFR ( Amer) Est GFR (Non-Af Amer) POC Glucose (mg/dL) 85 (65-110) mg/dL Random Glucose (75-110) mg/dL Lactic Acid (0.7-2.1) MMOL/L Calcium (8.4-10.2) mg/dL Magnesium 1.2 L (1.6-2.3) MG/DL Total Bilirubin (0.2-1.3) mg/dl AST (17-59) U/L ALT (21-72) U/L Alkaline Phosphatase (38-126) U/L Troponin I (0.00-0.120) ng/mL Total Protein (6.3-8.2) G/DL Albumin (3.5-5.0) g/dL Globulin (2.2-3.9) gm/dL Albumin/Globulin Ratio (1.0-2.1) Venous Blood Potassium (3.6-5.2) mmol/L Urine Color (YELLOW) Urine Clarity (Clear) Urine pH (5.0-8.0) Ur Specific Mathews (1.003-1.030) Urine Protein (NEGATIVE) mg/dL Urine Glucose (UA) (Normal) mg/dL Urine Ketones (NEGATIVE) mg/dL Urine Blood (NEGATIVE) Urine Nitrate (NEGATIVE) Urine Bilirubin (NEGATIVE) Urine Urobilinogen (0.2-1.0) mg/dL Ur Leukocyte Esterase (Negative) Nakul/uL Urine RBC (Auto) (0-3) /hpf Urine Microscopic WBC (0-5) /hpf Ur Squamous Epith Cells (0-5) /hpf Urine Bacteria (<OCC) Hyaline Casts (0-2) /hpf Digoxin 1.5 (0.8-2.0) ng/mL Influenza Typ A,B (EIA) (NEGATIVE) Blood Type Antibody Screen BBK History Checked 05/18/17 05/18/17 05/18/17 Range/Units 17:45 17:20 17:17 WBC 18.7 H (4.8-10.8) K/uL RBC 4.70 (4.40-5.90) Mil/uL Hgb 14.6 (12.0-18.0) g/dL Hct 43.3 (35.0-51.0) % MCV 92.1 (80.0-94.0) fl MCH 31.1 H (27.0-31.0) pg MCHC 33.8 (33.0-37.0) g/dL RDW 12.9 (11.5-14.5) % Plt Count 231 (130-400) K/uL MPV 7.2 (7.2-11.7) fl Neut % (Auto) 89.1 H (50.0-75.0) % Lymph % (Auto) 4.5 L (20.0-40.0) % [place] % (Auto) 6.2 (0.0-10.0) % Eos % (Auto) 0.0 (0.0-4.0) % Baso % (Auto) 0.2 (0.0-2.0) % Neut # (Auto) 16.6 H (1.8-7.0) K/uL Lymph # (Auto) 0.8 L (1.0-4.3) K/uL [place] # (Auto) 1.1 H (0.0-0.8) K/uL Eos # (Auto) 0.0 (0.0-0.7) K/uL Baso # (Auto) 0.0 (0.0-0.2) K/uL Neutrophils % (Manual) (42-75) % Band Neutrophils % (0-2) % Lymphocytes % (Manual) (20-50) % Monocytes % (Manual) (0-10) % Eosinophils % (Manual) (0-7) % Platelet Estimate (NORMAL) PT (9.8-13.1) Seconds INR (0.9-1.2) APTT (25.6-37.1) Seconds pCO2 (35-45) mm/Hg pO2 (30-55) mm/Hg HCO3 (21-28) mmol/L ABG pH (7.35-7.45) ABG Total CO2 (22-28) mmol/L ABG O2 Saturation (95-98) % ABG O2 Content (15-23) ML/dL ABG Base Excess (-2.0-3.0) mmol/L ABG Hemoglobin (11.7-17.4) g/dL ABG Carboxyhemoglobin (0.5-1.5) % POC ABG HHb (Measured) (0.0-5.0) % ABG Methemoglobin (0.0-3.0) % ABG O2 Capacity (16-24) mL/dL Scout Test VBG pH (7.32-7.43) VBG pCO2 (40-60) mmHg VBG HCO3 mmol/L VBG Total CO2 (22-28) mmol/L VBG O2 Sat (Calc) (40-65) % VBG Base Excess (0.0-2.0) mmol/L VBG Potassium (3.6-5.2) mmol/L A-a O2 Difference mm/Hg Hgb O2 Saturation (95.0-98.0) % Glucose (75-110) mg/dL Lactate (0.7-2.1) mmol/L Liter Flow Vent Mode FiO2 % Blood Gas Comments Crit Value Called To Crit Value Called By Crit Value Read Back Blood Gas Notified Time Sodium 137 (132-148) mmol/l Potassium 5.0 (3.6-5.0) MMOL/L Chloride 101 (98-107) mmol/L Carbon Dioxide 24 (22-30) mmol/L Anion Gap 17 (10-20) BUN 21 H (9-20) mg/dl Creatinine 1.0 (0.8-1.5) mg/dl Est GFR ( Amer) > 60 Est GFR (Non-Af Amer) > 60 POC Glucose (mg/dL) (65-110) mg/dL Random Glucose 112 H (75-110) mg/dL Lactic Acid 2.6 H (0.7-2.1) MMOL/L Calcium 8.4 (8.4-10.2) mg/dL Magnesium (1.6-2.3) MG/DL Total Bilirubin 1.0 (0.2-1.3) mg/dl AST 40 (17-59) U/L ALT 35 (21-72) U/L Alkaline Phosphatase 45 (38-126) U/L Troponin I 1.2700 H* (0.00-0.120) ng/mL Total Protein 6.1 L (6.3-8.2) G/DL Albumin 3.3 L (3.5-5.0) g/dL Globulin 2.8 (2.2-3.9) gm/dL Albumin/Globulin Ratio 1.2 (1.0-2.1) Venous Blood Potassium (3.6-5.2) mmol/L Urine Color (YELLOW) Urine Clarity (Clear) Urine pH (5.0-8.0) Ur Specific Mathews (1.003-1.030) Urine Protein (NEGATIVE) mg/dL Urine Glucose (UA) (Normal) mg/dL Urine Ketones (NEGATIVE) mg/dL Urine Blood (NEGATIVE) Urine Nitrate (NEGATIVE) Urine Bilirubin (NEGATIVE) Urine Urobilinogen (0.2-1.0) mg/dL Ur Leukocyte Esterase (Negative) Nakul/uL Urine RBC (Auto) (0-3) /hpf Urine Microscopic WBC (0-5) /hpf Ur Squamous Epith Cells (0-5) /hpf Urine Bacteria (<OCC) Hyaline Casts (0-2) /hpf Digoxin (0.8-2.0) ng/mL Influenza Typ A,B (EIA) (NEGATIVE) Blood Type Antibody Screen BBK History Checked 05/18/17 05/18/17 05/18/17 Range/Units 14:51 14:20 12:00 WBC (4.8-10.8) K/uL RBC (4.40-5.90) Mil/uL Hgb (12.0-18.0) g/dL Hct (35.0-51.0) % MCV (80.0-94.0) fl MCH (27.0-31.0) pg MCHC (33.0-37.0) g/dL RDW (11.5-14.5) % Plt Count (130-400) K/uL MPV (7.2-11.7) fl Neut % (Auto) (50.0-75.0) % Lymph % (Auto) (20.0-40.0) % [place] % (Auto) (0.0-10.0) % Eos % (Auto) (0.0-4.0) % Baso % (Auto) (0.0-2.0) % Neut # (Auto) (1.8-7.0) K/uL Lymph # (Auto) (1.0-4.3) K/uL [place] # (Auto) (0.0-0.8) K/uL Eos # (Auto) (0.0-0.7) K/uL Baso # (Auto) (0.0-0.2) K/uL Neutrophils % (Manual) (42-75) % Band Neutrophils % (0-2) % Lymphocytes % (Manual) (20-50) % Monocytes % (Manual) (0-10) % Eosinophils % (Manual) (0-7) % Platelet Estimate (NORMAL) PT (9.8-13.1) Seconds INR (0.9-1.2) APTT (25.6-37.1) Seconds pCO2 (35-45) mm/Hg pO2 37 26 L (30-55) mm/Hg HCO3 (21-28) mmol/L ABG pH (7.35-7.45) ABG Total CO2 (22-28) mmol/L ABG O2 Saturation (95-98) % ABG O2 Content (15-23) ML/dL ABG Base Excess (-2.0-3.0) mmol/L ABG Hemoglobin (11.7-17.4) g/dL ABG Carboxyhemoglobin (0.5-1.5) % POC ABG HHb (Measured) (0.0-5.0) % ABG Methemoglobin (0.0-3.0) % ABG O2 Capacity (16-24) mL/dL Scout Test VBG pH 7.40 7.40 (7.32-7.43) VBG pCO2 40 48 (40-60) mmHg VBG HCO3 24.2 26.7 mmol/L VBG Total CO2 26.0 31.2 H (22-28) mmol/L VBG O2 Sat (Calc) 78.6 H 56.7 (40-65) % VBG Base Excess 0.0 4.0 H (0.0-2.0) mmol/L VBG Potassium 5.2 4.9 (3.6-5.2) mmol/L A-a O2 Difference mm/Hg Hgb O2 Saturation (95.0-98.0) % Glucose 127 H 148 H (75-110) mg/dL Lactate 4.1 H* 3.3 H (0.7-2.1) mmol/L Liter Flow Vent Mode FiO2 21.0 21.0 % Blood Gas Comments Lactate 4.1 Crit Value Called To kash Woods Rn Crit Value Called By Crit Value Read Back Y Y Blood Gas Notified Time 1459 1205 Sodium 136.0 136.0 (132-148) mmol/l Potassium (3.6-5.0) MMOL/L Chloride 102.0 100.0 (98-107) mmol/L Carbon Dioxide (22-30) mmol/L Anion Gap (10-20) BUN (9-20) mg/dl Creatinine (0.8-1.5) mg/dl Est GFR ( Amer) Est GFR (Non-Af Amer) POC Glucose (mg/dL) (65-110) mg/dL Random Glucose (75-110) mg/dL Lactic Acid (0.7-2.1) MMOL/L Calcium (8.4-10.2) mg/dL Magnesium (1.6-2.3) MG/DL Total Bilirubin (0.2-1.3) mg/dl AST (17-59) U/L ALT (21-72) U/L Alkaline Phosphatase (38-126) U/L Troponin I (0.00-0.120) ng/mL Total Protein (6.3-8.2) G/DL Albumin (3.5-5.0) g/dL Globulin (2.2-3.9) gm/dL Albumin/Globulin Ratio (1.0-2.1) Venous Blood Potassium 5.2 4.9 (3.6-5.2) mmol/L Urine Color Yellow (YELLOW) Urine Clarity Slighty-cloudy (Clear) Urine pH 5.0 (5.0-8.0) Ur Specific Mathews 1.016 (1.003-1.030) Urine Protein Negative (NEGATIVE) mg/dL Urine Glucose (UA) Neg (Normal) mg/dL Urine Ketones Negative (NEGATIVE) mg/dL Urine Blood Negative (NEGATIVE) Urine Nitrate Negative (NEGATIVE) Urine Bilirubin Negative (NEGATIVE) Urine Urobilinogen 0.2-1.0 (0.2-1.0) mg/dL Ur Leukocyte Esterase Neg (Negative) Nakul/uL Urine RBC (Auto) 3 (0-3) /hpf Urine Microscopic WBC 1 (0-5) /hpf Ur Squamous Epith Cells < 1 (0-5) /hpf Urine Bacteria Rare (<OCC) Hyaline Casts 0-2 (0-2) /hpf Digoxin (0.8-2.0) ng/mL Influenza Typ A,B (EIA) (NEGATIVE) Blood Type Antibody Screen BBK History Checked 05/18/17 05/18/17 05/18/17 Range/Units 11:45 11:45 11:45 WBC (4.8-10.8) K/uL RBC (4.40-5.90) Mil/uL Hgb (12.0-18.0) g/dL Hct (35.0-51.0) % MCV (80.0-94.0) fl MCH (27.0-31.0) pg MCHC (33.0-37.0) g/dL RDW (11.5-14.5) % Plt Count (130-400) K/uL MPV (7.2-11.7) fl Neut % (Auto) (50.0-75.0) % Lymph % (Auto) (20.0-40.0) % [place] % (Auto) (0.0-10.0) % Eos % (Auto) (0.0-4.0) % Baso % (Auto) (0.0-2.0) % Neut # (Auto) (1.8-7.0) K/uL Lymph # (Auto) (1.0-4.3) K/uL [place] # (Auto) (0.0-0.8) K/uL Eos # (Auto) (0.0-0.7) K/uL Baso # (Auto) (0.0-0.2) K/uL Neutrophils % (Manual) (42-75) % Band Neutrophils % (0-2) % Lymphocytes % (Manual) (20-50) % Monocytes % (Manual) (0-10) % Eosinophils % (Manual) (0-7) % Platelet Estimate (NORMAL) PT 42.2 H* (9.8-13.1) Seconds INR 3.7 H (0.9-1.2) APTT 49.1 H (25.6-37.1) Seconds pCO2 (35-45) mm/Hg pO2 (30-55) mm/Hg HCO3 (21-28) mmol/L ABG pH (7.35-7.45) ABG Total CO2 (22-28) mmol/L ABG O2 Saturation (95-98) % ABG O2 Content (15-23) ML/dL ABG Base Excess (-2.0-3.0) mmol/L ABG Hemoglobin (11.7-17.4) g/dL ABG Carboxyhemoglobin (0.5-1.5) % POC ABG HHb (Measured) (0.0-5.0) % ABG Methemoglobin (0.0-3.0) % ABG O2 Capacity (16-24) mL/dL Scout Test VBG pH (7.32-7.43) VBG pCO2 (40-60) mmHg VBG HCO3 mmol/L VBG Total CO2 (22-28) mmol/L VBG O2 Sat (Calc) (40-65) % VBG Base Excess (0.0-2.0) mmol/L VBG Potassium (3.6-5.2) mmol/L A-a O2 Difference mm/Hg Hgb O2 Saturation (95.0-98.0) % Glucose (75-110) mg/dL Lactate (0.7-2.1) mmol/L Liter Flow Vent Mode FiO2 % Blood Gas Comments Crit Value Called To Crit Value Called By Crit Value Read Back Blood Gas Notified Time Sodium 141 (132-148) mmol/l Potassium 4.6 (3.6-5.0) MMOL/L Chloride 98 (98-107) mmol/L Carbon Dioxide 28 (22-30) mmol/L Anion Gap 20 (10-20) BUN 20 (9-20) mg/dl Creatinine 1.0 (0.8-1.5) mg/dl Est GFR ( Amer) > 60 Est GFR (Non-Af Amer) > 60 POC Glucose (mg/dL) (65-110) mg/dL Random Glucose 145 H (75-110) mg/dL Lactic Acid (0.7-2.1) MMOL/L Calcium 9.9 (8.4-10.2) mg/dL Magnesium (1.6-2.3) MG/DL Total Bilirubin 0.9 (0.2-1.3) mg/dl AST 42 (17-59) U/L ALT 39 (21-72) U/L Alkaline Phosphatase 64 (38-126) U/L Troponin I 0.9170 H* (0.00-0.120) ng/mL Total Protein 7.2 (6.3-8.2) G/DL Albumin 4.1 (3.5-5.0) g/dL Globulin 3.1 (2.2-3.9) gm/dL Albumin/Globulin Ratio 1.3 (1.0-2.1) Venous Blood Potassium (3.6-5.2) mmol/L Urine Color (YELLOW) Urine Clarity (Clear) Urine pH (5.0-8.0) Ur Specific Mathews (1.003-1.030) Urine Protein (NEGATIVE) mg/dL Urine Glucose (UA) (Normal) mg/dL Urine Ketones (NEGATIVE) mg/dL Urine Blood (NEGATIVE) Urine Nitrate (NEGATIVE) Urine Bilirubin (NEGATIVE) Urine Urobilinogen (0.2-1.0) mg/dL Ur Leukocyte Esterase (Negative) Nakul/uL Urine RBC (Auto) (0-3) /hpf Urine Microscopic WBC (0-5) /hpf Ur Squamous Epith Cells (0-5) /hpf Urine Bacteria (<OCC) Hyaline Casts (0-2) /hpf Digoxin (0.8-2.0) ng/mL Influenza Typ A,B (EIA) Negative for flu a/b (NEGATIVE) Blood Type Antibody Screen BBK History Checked 05/18/17 05/18/17 Range/Units 11:45 11:11 WBC 21.1 H D (4.8-10.8) K/uL RBC 4.84 (4.40-5.90) Mil/uL Hgb 15.2 (12.0-18.0) g/dL Hct 44.6 (35.0-51.0) % MCV 92.3 (80.0-94.0) fl MCH 31.5 H (27.0-31.0) pg MCHC 34.1 (33.0-37.0) g/dL RDW 12.9 (11.5-14.5) % Plt Count 259 (130-400) K/uL MPV 7.5 (7.2-11.7) fl Neut % (Auto) 86.3 H (50.0-75.0) % Lymph % (Auto) 4.2 L (20.0-40.0) % [place] % (Auto) 9.3 (0.0-10.0) % Eos % (Auto) 0.0 (0.0-4.0) % Baso % (Auto) 0.2 (0.0-2.0) % Neut # (Auto) 18.2 H (1.8-7.0) K/uL Lymph # (Auto) 0.9 L (1.0-4.3) K/uL [place] # (Auto) 2.0 H (0.0-0.8) K/uL Eos # (Auto) 0.0 (0.0-0.7) K/uL Baso # (Auto) 0.0 (0.0-0.2) K/uL Neutrophils % (Manual) 83 H (42-75) % Band Neutrophils % 2 (0-2) % Lymphocytes % (Manual) 5 L (20-50) % Monocytes % (Manual) 9 (0-10) % Eosinophils % (Manual) 1 (0-7) % Platelet Estimate Normal (NORMAL) PT (9.8-13.1) Seconds INR (0.9-1.2) APTT (25.6-37.1) Seconds pCO2 (35-45) mm/Hg pO2 (30-55) mm/Hg HCO3 (21-28) mmol/L ABG pH (7.35-7.45) ABG Total CO2 (22-28) mmol/L ABG O2 Saturation (95-98) % ABG O2 Content (15-23) ML/dL ABG Base Excess (-2.0-3.0) mmol/L ABG Hemoglobin (11.7-17.4) g/dL ABG Carboxyhemoglobin (0.5-1.5) % POC ABG HHb (Measured) (0.0-5.0) % ABG Methemoglobin (0.0-3.0) % ABG O2 Capacity (16-24) mL/dL Scout Test VBG pH (7.32-7.43) VBG pCO2 (40-60) mmHg VBG HCO3 mmol/L VBG Total CO2 (22-28) mmol/L VBG O2 Sat (Calc) (40-65) % VBG Base Excess (0.0-2.0) mmol/L VBG Potassium (3.6-5.2) mmol/L A-a O2 Difference mm/Hg Hgb O2 Saturation (95.0-98.0) % Glucose (75-110) mg/dL Lactate (0.7-2.1) mmol/L Liter Flow Vent Mode FiO2 % Blood Gas Comments Crit Value Called To Crit Value Called By Crit Value Read Back Blood Gas Notified Time Sodium (132-148) mmol/l Potassium (3.6-5.0) MMOL/L Chloride (98-107) mmol/L Carbon Dioxide (22-30) mmol/L Anion Gap (10-20) BUN (9-20) mg/dl Creatinine (0.8-1.5) mg/dl Est GFR ( Amer) Est GFR (Non-Af Amer) POC Glucose (mg/dL) 149 H (65-110) mg/dL Random Glucose (75-110) mg/dL Lactic Acid (0.7-2.1) MMOL/L Calcium (8.4-10.2) mg/dL Magnesium (1.6-2.3) MG/DL Total Bilirubin (0.2-1.3) mg/dl AST (17-59) U/L ALT (21-72) U/L Alkaline Phosphatase (38-126) U/L Troponin I (0.00-0.120) ng/mL Total Protein (6.3-8.2) G/DL Albumin (3.5-5.0) g/dL Globulin (2.2-3.9) gm/dL Albumin/Globulin Ratio (1.0-2.1) Venous Blood Potassium (3.6-5.2) mmol/L Urine Color (YELLOW) Urine Clarity (Clear) Urine pH (5.0-8.0) Ur Specific Mathews (1.003-1.030) Urine Protein (NEGATIVE) mg/dL Urine Glucose (UA) (Normal) mg/dL Urine Ketones (NEGATIVE) mg/dL Urine Blood (NEGATIVE) Urine Nitrate (NEGATIVE) Urine Bilirubin (NEGATIVE) Urine Urobilinogen (0.2-1.0) mg/dL Ur Leukocyte Esterase (Negative) Nakul/uL Urine RBC (Auto) (0-3) /hpf Urine Microscopic WBC (0-5) /hpf Ur Squamous Epith Cells (0-5) /hpf Urine Bacteria (<OCC) Hyaline Casts (0-2) /hpf Digoxin (0.8-2.0) ng/mL Influenza Typ A,B (EIA) (NEGATIVE) Blood Type Antibody Screen BBK History Checked Laboratory Results - last 24 hr 05/18/17 05/18/17 05/18/17 11:11 11:45 11:45 WBC 21.1 H D RBC 4.84 Hgb 15.2 Hct 44.6 MCV 92.3 MCH 31.5 H MCHC 34.1 RDW 12.9 Plt Count 259 MPV 7.5 Neut % (Auto) 86.3 H Lymph % (Auto) 4.2 L [place] % (Auto) 9.3 Eos % (Auto) 0.0 Baso % (Auto) 0.2 Neut # (Auto) 18.2 H Lymph # (Auto) 0.9 L [place] # (Auto) 2.0 H Eos # (Auto) 0.0 Baso # (Auto) 0.0 Neutrophils % (Manual) 83 H Band Neutrophils % 2 Lymphocytes % (Manual) 5 L Monocytes % (Manual) 9 Eosinophils % (Manual) 1 Platelet Estimate Normal PT INR APTT pCO2 pO2 HCO3 ABG pH ABG Total CO2 ABG O2 Saturation ABG O2 Content ABG Base Excess ABG Hemoglobin ABG Carboxyhemoglobin POC ABG HHb (Measured) ABG Methemoglobin ABG O2 Capacity Scout Test VBG pH VBG pCO2 VBG HCO3 VBG Total CO2 VBG O2 Sat (Calc) VBG Base Excess VBG Potassium A-a O2 Difference Hgb O2 Saturation Glucose Lactate Liter Flow Vent Mode FiO2 Blood Gas Comments Crit Value Called To Crit Value Called By Crit Value Read Back Blood Gas Notified Time Sodium 141 Potassium 4.6 Chloride 98 Carbon Dioxide 28 Anion Gap 20 BUN 20 Creatinine 1.0 Est GFR ( Amer) > 60 Est GFR (Non-Af Amer) > 60 POC Glucose (mg/dL) 149 H Random Glucose 145 H Lactic Acid Calcium 9.9 Magnesium Total Bilirubin 0.9 AST 42 ALT 39 Alkaline Phosphatase 64 Troponin I 0.9170 H* Total Protein 7.2 Albumin 4.1 Globulin 3.1 Albumin/Globulin Ratio 1.3 Venous Blood Potassium Urine Color Urine Clarity Urine pH Ur Specific [place]ws Urine Protein Urine Glucose (UA) Urine Ketones Urine Blood Urine Nitrate Urine Bilirubin Urine Urobilinogen Ur Leukocyte Esterase Urine RBC (Auto) Urine Microscopic WBC Ur Squamous Epith Cells Urine Bacteria Hyaline Casts Digoxin Influenza Typ A,B (EIA) Blood Type Antibody Screen BBK History Checked 05/18/17 05/18/17 05/18/17 11:45 11:45 12:00 WBC RBC Hgb Hct MCV MCH MCHC RDW Plt Count MPV Neut % (Auto) Lymph % (Auto) [place] % (Auto) Eos % (Auto) Baso % (Auto) Neut # (Auto) Lymph # (Auto) [place] # (Auto) Eos # (Auto) Baso # (Auto) Neutrophils % (Manual) Band Neutrophils % Lymphocytes % (Manual) Monocytes % (Manual) Eosinophils % (Manual) Platelet Estimate PT 42.2 H* INR 3.7 H APTT 49.1 H pCO2 pO2 26 L HCO3 ABG pH ABG Total CO2 ABG O2 Saturation ABG O2 Content ABG Base Excess ABG Hemoglobin ABG Carboxyhemoglobin POC ABG HHb (Measured) ABG Methemoglobin ABG O2 Capacity Scout Test VBG pH 7.40 VBG pCO2 48 VBG HCO3 26.7 VBG Total CO2 31.2 H VBG O2 Sat (Calc) 56.7 VBG Base Excess 4.0 H VBG Potassium 4.9 A-a O2 Difference Hgb O2 Saturation Glucose 148 H Lactate 3.3 H Liter Flow Vent Mode FiO2 21.0 Blood Gas Comments Crit Value Called To Laurel stanley Crit Value Called By 23 Crit Value Read Back Y Blood Gas Notified Time 1205 Sodium 136.0 Potassium Chloride 100.0 Carbon Dioxide Anion Gap BUN Creatinine Est GFR ( Amer) Est GFR (Non-Af Amer) POC Glucose (mg/dL) Random Glucose Lactic Acid Calcium Magnesium Total Bilirubin AST ALT Alkaline Phosphatase Troponin I Total Protein Albumin Globulin Albumin/Globulin Ratio Venous Blood Potassium 4.9 Urine Color Urine Clarity Urine pH Ur Specific Mathews Urine Protein Urine Glucose (UA) Urine Ketones Urine Blood Urine Nitrate Urine Bilirubin Urine Urobilinogen Ur Leukocyte Esterase Urine RBC (Auto) Urine Microscopic WBC Ur Squamous Epith Cells Urine Bacteria Hyaline Casts Digoxin Influenza Typ A,B (EIA) Negative for flu a/b Blood Type Antibody Screen BBK History Checked 05/18/17 05/18/17 05/18/17 14:20 14:51 17:17 WBC RBC Hgb Hct MCV MCH MCHC RDW Plt Count MPV Neut % (Auto) Lymph % (Auto) [place] % (Auto) Eos % (Auto) Baso % (Auto) Neut # (Auto) Lymph # (Auto) [place] # (Auto) Eos # (Auto) Baso # (Auto) Neutrophils % (Manual) Band Neutrophils % Lymphocytes % (Manual) Monocytes % (Manual) Eosinophils % (Manual) Platelet Estimate PT INR APTT pCO2 pO2 37 HCO3 ABG pH ABG Total CO2 ABG O2 Saturation ABG O2 Content ABG Base Excess ABG Hemoglobin ABG Carboxyhemoglobin POC ABG HHb (Measured) ABG Methemoglobin ABG O2 Capacity Scout Test VBG pH 7.40 VBG pCO2 40 VBG HCO3 24.2 VBG Total CO2 26.0 VBG O2 Sat (Calc) 78.6 H VBG Base Excess 0.0 VBG Potassium 5.2 A-a O2 Difference Hgb O2 Saturation Glucose 127 H Lactate 4.1 H* Liter Flow Vent Mode FiO2 21.0 Blood Gas Comments Lactate 4.1 Crit Value Called To kash [place] Crit Value Called By 22 Crit Value Read Back Y Blood Gas Notified Time 1459 Sodium 136.0 137 Potassium 5.0 Chloride 102.0 101 Carbon Dioxide 24 Anion Gap 17 BUN 21 H Creatinine 1.0 Est GFR ( Amer) > 60 Est GFR (Non-Af Amer) > 60 POC Glucose (mg/dL) Random Glucose 112 H Lactic Acid Calcium 8.4 Magnesium Total Bilirubin 1.0 AST 40 ALT 35 Alkaline Phosphatase 45 Troponin I 1.2700 H* Total Protein 6.1 L Albumin 3.3 L Globulin 2.8 Albumin/Globulin Ratio 1.2 Venous Blood Potassium 5.2 Urine Color Yellow Urine Clarity Slighty-cloudy Urine pH 5.0 Ur Specific [place]ws 1.016 Urine Protein Negative Urine Glucose (UA) Neg Urine Ketones Negative Urine Blood Negative Urine Nitrate Negative Urine Bilirubin Negative Urine Urobilinogen 0.2-1.0 Ur Leukocyte Esterase Neg Urine RBC (Auto) 3 Urine Microscopic WBC 1 Ur Squamous Epith Cells < 1 Urine Bacteria Rare Hyaline Casts 0-2 Digoxin Influenza Typ A,B (EIA) Blood Type Antibody Screen BBK History Checked 05/18/17 05/18/17 05/18/17 17:20 17:45 19:50 WBC 18.7 H RBC 4.70 Hgb 14.6 Hct 43.3 MCV 92.1 MCH 31.1 H MCHC 33.8 RDW 12.9 Plt Count 231 MPV 7.2 Neut % (Auto) 89.1 H Lymph % (Auto) 4.5 L [place] % (Auto) 6.2 Eos % (Auto) 0.0 Baso % (Auto) 0.2 Neut # (Auto) 16.6 H Lymph # (Auto) 0.8 L [place] # (Auto) 1.1 H Eos # (Auto) 0.0 Baso # (Auto) 0.0 Neutrophils % (Manual) Band Neutrophils % Lymphocytes % (Manual) Monocytes % (Manual) Eosinophils % (Manual) Platelet Estimate PT INR APTT pCO2 pO2 HCO3 ABG pH ABG Total CO2 ABG O2 Saturation ABG O2 Content ABG Base Excess ABG Hemoglobin ABG Carboxyhemoglobin POC ABG HHb (Measured) ABG Methemoglobin ABG O2 Capacity Scout Test VBG pH VBG pCO2 VBG HCO3 VBG Total CO2 VBG O2 Sat (Calc) VBG Base Excess VBG Potassium A-a O2 Difference Hgb O2 Saturation Glucose Lactate Liter Flow Vent Mode FiO2 Blood Gas Comments Crit Value Called To Crit Value Called By Crit Value Read Back Blood Gas Notified Time Sodium Potassium Chloride Carbon Dioxide Anion Gap BUN Creatinine Est GFR ( Amer) Est GFR (Non-Af Amer) POC Glucose (mg/dL) Random Glucose Lactic Acid 2.6 H Calcium Magnesium Total Bilirubin AST ALT Alkaline Phosphatase Troponin I Total Protein Albumin Globulin Albumin/Globulin Ratio Venous Blood Potassium Urine Color Urine Clarity Urine pH Ur Specific [place] Urine Protein Urine Glucose (UA) Urine Ketones Urine Blood Urine Nitrate Urine Bilirubin Urine Urobilinogen Ur Leukocyte Esterase Urine RBC (Auto) Urine Microscopic WBC Ur Squamous Epith Cells Urine Bacteria Hyaline Casts Digoxin 1.5 Influenza Typ A,B (EIA) Blood Type Antibody Screen BBK History Checked 05/18/17 05/18/17 05/19/17 19:50 21:41 00:45 WBC RBC Hgb Hct MCV MCH MCHC RDW Plt Count MPV Neut % (Auto) Lymph % (Auto) [place] % (Auto) Eos % (Auto) Baso % (Auto) Neut # (Auto) Lymph # (Auto) [place] # (Auto) Eos # (Auto) Baso # (Auto) Neutrophils % (Manual) Band Neutrophils % Lymphocytes % (Manual) Monocytes % (Manual) Eosinophils % (Manual) Platelet Estimate PT INR APTT pCO2 pO2 HCO3 ABG pH ABG Total CO2 ABG O2 Saturation ABG O2 Content ABG Base Excess ABG Hemoglobin ABG Carboxyhemoglobin POC ABG HHb (Measured) ABG Methemoglobin ABG O2 Capacity Scout Test VBG pH VBG pCO2 VBG HCO3 VBG Total CO2 VBG O2 Sat (Calc) VBG Base Excess VBG Potassium A-a O2 Difference Hgb O2 Saturation Glucose Lactate Liter Flow Vent Mode FiO2 Blood Gas Comments Crit Value Called To Crit Value Called By Crit Value Read Back Blood Gas Notified Time Sodium Potassium Chloride Carbon Dioxide Anion Gap BUN Creatinine Est GFR ( Amer) Est GFR (Non-Af Amer) POC Glucose (mg/dL) 85 Random Glucose Lactic Acid Calcium Magnesium 1.2 L Total Bilirubin AST ALT Alkaline Phosphatase Troponin I 1.0500 H* Total Protein Albumin Globulin Albumin/Globulin Ratio Venous Blood Potassium Urine Color Urine Clarity Urine pH Ur Specific Mathews Urine Protein Urine Glucose (UA) Urine Ketones Urine Blood Urine Nitrate Urine Bilirubin Urine Urobilinogen Ur Leukocyte Esterase Urine RBC (Auto) Urine Microscopic WBC Ur Squamous Epith Cells Urine Bacteria Hyaline Casts Digoxin Influenza Typ A,B (EIA) Blood Type Antibody Screen BBK History Checked 05/19/17 05/19/17 05/19/17 00:45 04:50 04:50 WBC 20.1 H RBC 4.07 L Hgb 13.0 Hct 37.8 MCV 92.7 MCH 31.9 H MCHC 34.5 RDW 13.2 Plt Count 207 MPV 7.3 Neut % (Auto) 87.0 H Lymph % (Auto) 6.4 L [place] % (Auto) 6.3 Eos % (Auto) 0.0 Baso % (Auto) 0.3 Neut # (Auto) 17.5 H Lymph # (Auto) 1.3 [place] # (Auto) 1.3 H Eos # (Auto) 0.0 Baso # (Auto) 0.1 Neutrophils % (Manual) Band Neutrophils % Lymphocytes % (Manual) Monocytes % (Manual) Eosinophils % (Manual) Platelet Estimate PT INR APTT pCO2 pO2 HCO3 ABG pH ABG Total CO2 ABG O2 Saturation ABG O2 Content ABG Base Excess ABG Hemoglobin ABG Carboxyhemoglobin POC ABG HHb (Measured) ABG Methemoglobin ABG O2 Capacity Scout Test VBG pH VBG pCO2 VBG HCO3 VBG Total CO2 VBG O2 Sat (Calc) VBG Base Excess VBG Potassium A-a O2 Difference Hgb O2 Saturation Glucose Lactate Liter Flow Vent Mode FiO2 Blood Gas Comments Crit Value Called To Crit Value Called By Crit Value Read Back Blood Gas Notified Time Sodium Potassium Chloride Carbon Dioxide Anion Gap BUN Creatinine Est GFR ( Amer) Est GFR (Non-Af Amer) POC Glucose (mg/dL) 124 H Random Glucose Lactic Acid Calcium Magnesium Total Bilirubin AST ALT Alkaline Phosphatase Troponin I Total Protein Albumin Globulin Albumin/Globulin Ratio Venous Blood Potassium Urine Color Urine Clarity Urine pH Ur Specific [place] Urine Protein Urine Glucose (UA) Urine Ketones Urine Blood Urine Nitrate Urine Bilirubin Urine Urobilinogen Ur Leukocyte Esterase Urine RBC (Auto) Urine Microscopic WBC Ur Squamous Epith Cells Urine Bacteria Hyaline Casts Digoxin Influenza Typ A,B (EIA) Blood Type A POSITIVE Antibody Screen Negative BBK History Checked No verified bt 05/19/17 05/19/17 05/19/17 04:50 04:50 04:53 WBC RBC Hgb Hct MCV MCH MCHC RDW Plt Count MPV Neut % (Auto) Lymph % (Auto) [place] % (Auto) Eos % (Auto) Baso % (Auto) Neut # (Auto) Lymph # (Auto) [place] # (Auto) Eos # (Auto) Baso # (Auto) Neutrophils % (Manual) Band Neutrophils % Lymphocytes % (Manual) Monocytes % (Manual) Eosinophils % (Manual) Platelet Estimate PT 31.2 H D INR 2.8 H D APTT 44.6 H pCO2 34 L pO2 85 HCO3 26.0 ABG pH 7.47 H ABG Total CO2 25.7 ABG O2 Saturation 97.8 ABG O2 Content 17.2 ABG Base Excess 1.4 ABG Hemoglobin 12.9 ABG Carboxyhemoglobin 2.2 H POC ABG HHb (Measured) 2.1 ABG Methemoglobin 1.2 ABG O2 Capacity 17.6 Scout Test Yes VBG pH VBG pCO2 VBG HCO3 VBG Total CO2 VBG O2 Sat (Calc) VBG Base Excess VBG Potassium A-a O2 Difference 158.0 Hgb O2 Saturation 94.5 L Glucose Lactate Liter Flow 35 Vent Mode Hfov FiO2 40.0 Blood Gas Comments Crit Value Called To Crit Value Called By Crit Value Read Back Blood Gas Notified Time Sodium 138 Potassium 4.1 Chloride 99 Carbon Dioxide 26 Anion Gap 17 BUN 25 H Creatinine 1.1 Est GFR ( Amer) > 60 Est GFR (Non-Af Amer) > 60 POC Glucose (mg/dL) Random Glucose 132 H Lactic Acid Calcium 8.2 L Magnesium Total Bilirubin 1.7 H AST 63 H D ALT 38 Alkaline Phosphatase 38 Troponin I Total Protein 5.6 L Albumin 2.9 L Globulin 2.7 Albumin/Globulin Ratio 1.1 Venous Blood Potassium Urine Color Urine Clarity Urine pH Ur Specific [place] Urine Protein Urine Glucose (UA) Urine Ketones Urine Blood Urine Nitrate Urine Bilirubin Urine Urobilinogen Ur Leukocyte Esterase Urine RBC (Auto) Urine Microscopic WBC Ur Squamous Epith Cells Urine Bacteria Hyaline Casts Digoxin Influenza Typ A,B (EIA) Blood Type Antibody Screen BBK History Checked 05/19/17 05/19/17 05:00 05:08 WBC RBC Hgb Hct MCV MCH MCHC RDW Plt Count MPV Neut % (Auto) Lymph % (Auto) [place] % (Auto) Eos % (Auto) Baso % (Auto) Neut # (Auto) Lymph # (Auto) [place] # (Auto) Eos # (Auto) Baso # (Auto) Neutrophils % (Manual) Band Neutrophils % Lymphocytes % (Manual) Monocytes % (Manual) Eosinophils % (Manual) Platelet Estimate PT INR APTT pCO2 pO2 HCO3 ABG pH ABG Total CO2 ABG O2 Saturation ABG O2 Content ABG Base Excess ABG Hemoglobin ABG Carboxyhemoglobin POC ABG HHb (Measured) ABG Methemoglobin ABG O2 Capacity Scout Test VBG pH VBG pCO2 VBG HCO3 VBG Total CO2 VBG O2 Sat (Calc) VBG Base Excess VBG Potassium A-a O2 Difference Hgb O2 Saturation Glucose Lactate Liter Flow Vent Mode FiO2 Blood Gas Comments Crit Value Called To Crit Value Called By Crit Value Read Back Blood Gas Notified Time Sodium Potassium Chloride Carbon Dioxide Anion Gap BUN Creatinine Est GFR ( Amer) Est GFR (Non-Af Amer) POC Glucose (mg/dL) 126 H Random Glucose Lactic Acid 1.8 Calcium Magnesium Total Bilirubin AST ALT Alkaline Phosphatase Troponin I Total Protein Albumin Globulin Albumin/Globulin Ratio Venous Blood Potassium Urine Color Urine Clarity Urine pH Ur Specific [place] Urine Protein Urine Glucose (UA) Urine Ketones Urine Blood Urine Nitrate Urine Bilirubin Urine Urobilinogen Ur Leukocyte Esterase Urine RBC (Auto) Urine Microscopic WBC Ur Squamous Epith Cells Urine Bacteria Hyaline Casts Digoxin Influenza Typ A,B (EIA) Blood Type Antibody Screen BBK History Checked EKG/Cardiology Studies: Cardiology / EKG Studies 05/18/17 11:45 EKG [ELECTROCARDIOGRAM] Stat Comment: Mode Of Transportation: PORTABLE Reason For Exam: Palpitations 05/18/17 18:54 EKG [ELECTROCARDIOGRAM] Stat Comment: Mode Of Transportation: PORTABLE Reason For Exam: rising troponins 05/19/17 EKG [ELECTROCARDIOGRAM] Routine Comment: Mode Of Transportation: Reason For Exam: r/o NSTEMI Isolation: Special Contact Fingerstick Blood Sugar Results: 126 Review of Systems - Review of Systems All systems: reviewed and no additional remarkable complaints except (as above) Critical Care Progress Note - Ventilator Checklist Head of Bed 30 Degrees: Yes - Extremities/Vascular Does the Patient have a Central Venous Catheter?: No Does the Patient need a Central Venous Catheter?: No Does the Patient have a [place] Catheter?: No Does the Patient need a [place] Catheter?: No Catheter Insertion Criteria: Need for accurate measurement of output in critically ill patient - Prophylaxis DVT Prophylaxis DVT: Warfarin
[2017-05-19] MEDS ORDERED: Tiotropium 18 mcg Cap For Inhalation IH SCH (09:00)
--- NOTE | 2017-05-19 10:24 | CP.PCM.CON ---
History of Present Illness - History of Present Illness History of Present Illness: This 76-year-old man is well known to me from 1995. He has a long-standing history of COPD and has had a pulmonary nodule which was initially thought to be malignant but subsequent examinations have not shown any progression and is being closely watched by his oncologist. The patient has severe COPD and has extremely poor and images are. He developed atrial fibrillation in 2012 and subsequently is being managed on oral anticoagulation. He is on digoxin for rate control. He does not tolerate beta blockade because of extremely poor respiratory reserve. He has never suffered an acute myocardial infarction or congestive cardiac failure. He is a diabetic who requires insulin for managing hyperglycemia. He does not have any renal insufficiency or [place] involvement. The patient came into the emergency room after having developed chills early in the morning followed by bouts of severe diarrhea and was found to be febrile. He was also found to have significant leukocytosis and is being managed for pulmonary sepsis. He was profoundly hypoxic and has required high flow oxygen supplement to adequately oxygenate him. He denies any episode of chest pain. He arrived in the emergency room with fast heart rate in atrial fibrillation probably secondary to fever and sepsis. His troponin level was found to be elevated. Physical examination shows an elderly thin built man alert awake and coherent, afebrile at this point. He shows atrial fibrillation with a heart rate of 78 bpm irregularly irregular. His blood pressure was 102/60 mmHg. His extremities were warm and his nailbeds were pink. There was no central or peripheral cyanosis. There was no clubbing. Jugular venous pressure was not elevated and there was no edema over his lower extremities. Pedal pulses are extremely feeble. There were no carotid bruits. The chest had mildly emphysematous configuration. The apex was not palpable. The first and second heart sounds were distant but normal. A brief apical systolic murmur was audible. There were no rales. His electric cardiogram showed atrial fibrillation with QS complexes in V1 and V2 as well as V3, a pattern seen on his electro-cardiogram as far back as 1995. His lab data shows leukocytosis with a high neutrophil count. His blood gases showed significant hypoxia which was resolved after high flow oxygen delivery. His BUN/creatinine were noted his GFR is normal his electrolytes are normal. His troponin levels were mildly elevated most likely secondary to tachycardia during fever. Chest x-ray and CT of the chest were noted. Impression: Pulmonary sepsis in a patient with severe COPD and pulmonary nodule suspicious for possible malignancy. Atrial fibrillation chronic. Diabetes mellitus. The patient's fever seems to have resolved and he appears well hydrated at this point. The patient would sit up and have his breakfast. I will arrange an echocardiogram to evaluate his left ventricular systolic function. His last echocardiogram of 2012 showed good left ventricular systolic function and no significant valvulopathy. Past Patient History - Past Medical History & Family History Past Medical History?: Yes - Past Social History Smoking Status: Former Smoker Chewing Tobacco Use: No Cigar Use: No Alcohol: Social Drugs: Cannabis (occasionally) Home Situation {Lives}: With Family - CARDIAC Hx Atrial Fibrillation: Yes Hx Hypercholesterolemia: Yes Hx Hypertension: Yes - PULMONARY Hx Chronic Obstructive Pulmonary Disease (COPD): Yes Hx Emphysema: Yes Other/Comment: Pulmonary nodules. 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 [place] [facility] [place] of [place]. - NEUROLOGICAL Hx Neurological Disorder: No - HEENT Hx HEENT Problems: No - RENAL Hx Chronic Kidney Disease: No - ENDOCRINE/METABOLIC Hx Diabetes Mellitus Type 2: Yes (pre-diabetic) - HEMATOLOGICAL/ONCOLOGICAL Hx Blood Disorders: No Hx Bruising: Yes - INTEGUMENTARY Hx Dermatological Problems: No - MUSCULOSKELETAL/RHEUMATOLOGICAL Hx Musculoskeletal Disorders: No - GASTROINTESTINAL Hx Gastrointestinal Disorders: No - GENITOURINARY/GYNECOLOGICAL Hx Prostate Problems: Yes - PSYCHIATRIC Hx Psychophysiologic Disorder: No Hx Substance Use: No - SURGICAL HISTORY Hx Surgeries: Yes Other/Comment: LUNG SX . BACK SX - ANESTHESIA Hx Anesthesia: Yes Hx Anesthesia Reactions: No Hx Malignant Hyperthermia: No Meds Allergies/Adverse Reactions: Allergies Allergy/AdvReac Type Severity Reaction Status Date / Time hydromorphone Allergy Mild RASH Verified 05/18/17 11:44 - Medications Medications: Current Medications Atorvastatin Calcium (Lipitor) 20 mg PO DAILY [facility] Last Admin: 05/19/17 08:47 Dose: 20 mg Dextrose (Dextrose 50% Inj) 0 ml IV STAT PRN; Protocol PRN Reason: Hypoglycemia Protocol Dextrose (Glutose 15) 0 gm PO ONCE PRN; Protocol PRN Reason: Hypoglycemia Protocol Digoxin (Lanoxin) 0.25 mg PO DAILY [facility] Last Admin: 05/19/17 08:48 Dose: 0.25 mg Famotidine (Pepcid) 20 mg PO Q12 [facility] Last Admin: 05/19/17 08:48 Dose: 20 mg Finasteride (Proscar) 5 mg PO DAILY [facility] Last Admin: 05/19/17 08:47 Dose: 5 mg Gabapentin (Neurontin) 300 mg PO HS [facility] Last Admin: 05/18/17 22:14 Dose: 300 mg Glucagon (Glucagen Diagnostic Kit) 0 mg IM STAT PRN; Protocol PRN Reason: Hypoglycemia Protocol Piperacillin Sod/Tazobactam (Sod 3.375 gm/ Sodium Chloride) 100 mls @ 100 mls/ hr IVPB Q6 ULISES PRN Reason: Protocol Last Admin: 05/19/17 08:59 Dose: 100 mls/hr Dextrose/Sodium Chloride (Dextrose 5%/0.45% Ns 1000 Ml) 1,000 mls @ 100 mls/hr IV .Q10H [facility] Stop: 05/19/17 22:07 Last Admin: 05/18/17 22:26 Dose: 100 mls/hr Insulin Detemir (Levemir) 20 units SC HS [facility] Last Admin: 05/18/17 22:09 Dose: Not Given Levalbuterol HCl (Xopenex) 1.25 mg INH RQ8 PRN PRN Reason: Shortness of Breath Losartan Potassium (Cozaar) 25 mg PO DAILY [facility] Last Admin: 05/19/17 08:47 Dose: 25 mg Fluticasone/Salmeterol (Advair Diskus 500/50) 1 puff IH Q12 [facility] Last Admin: 05/18/17 21:44 Dose: 1 inhaler Tiotropium [place] (Spiriva) 18 mcg INH DAILY [facility] Results - Vital Signs Recent Vital Signs: Last Vital Signs Temp 98.0 F 05/19/17 08:18 Pulse 85 05/19/17 10:00 Resp 23 05/19/17 10:00 BP 99/52 L 05/19/17 10:00 Pulse Ox 100 05/19/17 10:00 - Labs Result Diagrams: 05/19/17 04:50 05/19/17 04:50 Labs: Laboratory Results - last 24 hr 05/18/17 05/18/17 05/18/17 11:11 11:45 11:45 WBC 21.1 H D RBC 4.84 Hgb 15.2 Hct 44.6 MCV 92.3 MCH 31.5 H MCHC 34.1 RDW 12.9 Plt Count 259 MPV 7.5 Neut % (Auto) 86.3 H Lymph % (Auto) 4.2 L [place] % (Auto) 9.3 Eos % (Auto) 0.0 Baso % (Auto) 0.2 Neut # (Auto) 18.2 H Lymph # (Auto) 0.9 L [place] # (Auto) 2.0 H Eos # (Auto) 0.0 Baso # (Auto) 0.0 Neutrophils % (Manual) 83 H Band Neutrophils % 2 Lymphocytes % (Manual) 5 L Monocytes % (Manual) 9 Eosinophils % (Manual) 1 Platelet Estimate Normal PT INR APTT pCO2 pO2 HCO3 ABG pH ABG Total CO2 ABG O2 Saturation ABG O2 Content ABG Base Excess ABG Hemoglobin ABG Carboxyhemoglobin POC ABG HHb (Measured) ABG Methemoglobin ABG O2 Capacity Scout Test VBG pH VBG pCO2 VBG HCO3 VBG Total CO2 VBG O2 Sat (Calc) VBG Base Excess VBG Potassium A-a O2 Difference Hgb O2 Saturation Glucose Lactate Liter Flow Vent Mode FiO2 Blood Gas Comments Crit Value Called To Crit Value Called By Crit Value Read Back Blood Gas Notified Time Sodium 141 Potassium 4.6 Chloride 98 Carbon Dioxide 28 Anion Gap 20 BUN 20 Creatinine 1.0 Est GFR ( Amer) > 60 Est GFR (Non-Af Amer) > 60 POC Glucose (mg/dL) 149 H Random Glucose 145 H Lactic Acid Calcium 9.9 Magnesium Total Bilirubin 0.9 AST 42 ALT 39 Alkaline Phosphatase 64 Troponin I 0.9170 H* Total Protein 7.2 Albumin 4.1 Globulin 3.1 Albumin/Globulin Ratio 1.3 Venous Blood Potassium Urine Color Urine Clarity Urine pH Ur Specific [place] Urine Protein Urine Glucose (UA) Urine Ketones Urine Blood Urine Nitrate Urine Bilirubin Urine Urobilinogen Ur Leukocyte Esterase Urine RBC (Auto) Urine Microscopic WBC Ur Squamous Epith Cells Urine Bacteria Hyaline Casts Digoxin Influenza Typ A,B (EIA) Blood Type Blood Type Confirm Antibody Screen BBK History Checked 05/18/17 05/18/17 05/18/17 11:45 11:45 12:00 WBC RBC Hgb Hct MCV MCH MCHC RDW Plt Count MPV Neut % (Auto) Lymph % (Auto) [place] % (Auto) Eos % (Auto) Baso % (Auto) Neut # (Auto) Lymph # (Auto) [place] # (Auto) Eos # (Auto) Baso # (Auto) Neutrophils % (Manual) Band Neutrophils % Lymphocytes % (Manual) Monocytes % (Manual) Eosinophils % (Manual) Platelet Estimate PT 42.2 H* INR 3.7 H APTT 49.1 H pCO2 pO2 26 L HCO3 ABG pH ABG Total CO2 ABG O2 Saturation ABG O2 Content ABG Base Excess ABG Hemoglobin ABG Carboxyhemoglobin POC ABG HHb (Measured) ABG Methemoglobin ABG O2 Capacity Scout Test VBG pH 7.40 VBG pCO2 48 VBG HCO3 26.7 VBG Total CO2 31.2 H VBG O2 Sat (Calc) 56.7 VBG Base Excess 4.0 H VBG Potassium 4.9 A-a O2 Difference Hgb O2 Saturation Glucose 148 H Lactate 3.3 H Liter Flow Vent Mode FiO2 21.0 Blood Gas Comments Crit Value Called To Laurel stanley Crit Value Called By 23 Crit Value Read Back Y Blood Gas Notified Time 1205 Sodium 136.0 Potassium Chloride 100.0 Carbon Dioxide Anion Gap BUN Creatinine Est GFR ( Amer) Est GFR (Non-Af Amer) POC Glucose (mg/dL) Random Glucose Lactic Acid Calcium Magnesium Total Bilirubin AST ALT Alkaline Phosphatase Troponin I Total Protein Albumin Globulin Albumin/Globulin Ratio Venous Blood Potassium 4.9 Urine Color Urine Clarity Urine pH Ur Specific [place] Urine Protein Urine Glucose (UA) Urine Ketones Urine Blood Urine Nitrate Urine Bilirubin Urine Urobilinogen Ur Leukocyte Esterase Urine RBC (Auto) Urine Microscopic WBC Ur Squamous Epith Cells Urine Bacteria Hyaline Casts Digoxin Influenza Typ A,B (EIA) Negative for flu a/b Blood Type Blood Type Confirm Antibody Screen BBK History Checked 05/18/17 05/18/17 05/18/17 14:20 14:51 17:17 WBC RBC Hgb Hct MCV MCH MCHC RDW Plt Count MPV Neut % (Auto) Lymph % (Auto) [place] % (Auto) Eos % (Auto) Baso % (Auto) Neut # (Auto) Lymph # (Auto) [place] # (Auto) Eos # (Auto) Baso # (Auto) Neutrophils % (Manual) Band Neutrophils % Lymphocytes % (Manual) Monocytes % (Manual) Eosinophils % (Manual) Platelet Estimate PT INR APTT pCO2 pO2 37 HCO3 ABG pH ABG Total CO2 ABG O2 Saturation ABG O2 Content ABG Base Excess ABG Hemoglobin ABG Carboxyhemoglobin POC ABG HHb (Measured) ABG Methemoglobin ABG O2 Capacity Scout Test VBG pH 7.40 VBG pCO2 40 VBG HCO3 24.2 VBG Total CO2 26.0 VBG O2 Sat (Calc) 78.6 H VBG Base Excess 0.0 VBG Potassium 5.2 A-a O2 Difference Hgb O2 Saturation Glucose 127 H Lactate 4.1 H* Liter Flow Vent Mode FiO2 21.0 Blood Gas Comments Lactate 4.1 Crit Value Called To kash [place] Crit Value Called By 22 Crit Value Read Back Y Blood Gas Notified Time 1459 Sodium 136.0 137 Potassium 5.0 Chloride 102.0 101 Carbon Dioxide 24 Anion Gap 17 BUN 21 H Creatinine 1.0 Est GFR ( Amer) > 60 Est GFR (Non-Af Amer) > 60 POC Glucose (mg/dL) Random Glucose 112 H Lactic Acid Calcium 8.4 Magnesium Total Bilirubin 1.0 AST 40 ALT 35 Alkaline Phosphatase 45 Troponin I 1.2700 H* Total Protein 6.1 L Albumin 3.3 L Globulin 2.8 Albumin/Globulin Ratio 1.2 Venous Blood Potassium 5.2 Urine Color Yellow Urine Clarity Slighty-cloudy Urine pH 5.0 Ur Specific [place] 1.016 Urine Protein Negative Urine Glucose (UA) Neg Urine Ketones Negative Urine Blood Negative Urine Nitrate Negative Urine Bilirubin Negative Urine Urobilinogen 0.2-1.0 Ur Leukocyte Esterase Neg Urine RBC (Auto) 3 Urine Microscopic WBC 1 Ur Squamous Epith Cells < 1 Urine Bacteria Rare Hyaline Casts 0-2 Digoxin Influenza Typ A,B (EIA) Blood Type Blood Type Confirm Antibody Screen BBK History Checked 05/18/17 05/18/17 05/18/17 17:20 17:45 19:50 WBC 18.7 H RBC 4.70 Hgb 14.6 Hct 43.3 MCV 92.1 MCH 31.1 H MCHC 33.8 RDW 12.9 Plt Count 231 MPV 7.2 Neut % (Auto) 89.1 H Lymph % (Auto) 4.5 L [place] % (Auto) 6.2 Eos % (Auto) 0.0 Baso % (Auto) 0.2 Neut # (Auto) 16.6 H Lymph # (Auto) 0.8 L [place] # (Auto) 1.1 H Eos # (Auto) 0.0 Baso # (Auto) 0.0 Neutrophils % (Manual) Band Neutrophils % Lymphocytes % (Manual) Monocytes % (Manual) Eosinophils % (Manual) Platelet Estimate PT INR APTT pCO2 pO2 HCO3 ABG pH ABG Total CO2 ABG O2 Saturation ABG O2 Content ABG Base Excess ABG Hemoglobin ABG Carboxyhemoglobin POC ABG HHb (Measured) ABG Methemoglobin ABG O2 Capacity Scout Test VBG pH VBG pCO2 VBG HCO3 VBG Total CO2 VBG O2 Sat (Calc) VBG Base Excess VBG Potassium A-a O2 Difference Hgb O2 Saturation Glucose Lactate Liter Flow Vent Mode FiO2 Blood Gas Comments Crit Value Called To Crit Value Called By Crit Value Read Back Blood Gas Notified Time Sodium Potassium Chloride Carbon Dioxide Anion Gap BUN Creatinine Est GFR ( Amer) Est GFR (Non-Af Amer) POC Glucose (mg/dL) Random Glucose Lactic Acid 2.6 H Calcium Magnesium Total Bilirubin AST ALT Alkaline Phosphatase Troponin I Total Protein Albumin Globulin Albumin/Globulin Ratio Venous Blood Potassium Urine Color Urine Clarity Urine pH Ur Specific [place] Urine Protein Urine Glucose (UA) Urine Ketones Urine Blood Urine Nitrate Urine Bilirubin Urine Urobilinogen Ur Leukocyte Esterase Urine RBC (Auto) Urine Microscopic WBC Ur Squamous Epith Cells Urine Bacteria Hyaline Casts Digoxin 1.5 Influenza Typ A,B (EIA) Blood Type Blood Type Confirm Antibody Screen BBK History Checked 05/18/17 05/18/17 05/19/17 19:50 21:41 00:45 WBC RBC Hgb Hct MCV MCH MCHC RDW Plt Count MPV Neut % (Auto) Lymph % (Auto) [place] % (Auto) Eos % (Auto) Baso % (Auto) Neut # (Auto) Lymph # (Auto) [place] # (Auto) Eos # (Auto) Baso # (Auto) Neutrophils % (Manual) Band Neutrophils % Lymphocytes % (Manual) Monocytes % (Manual) Eosinophils % (Manual) Platelet Estimate PT INR APTT pCO2 pO2 HCO3 ABG pH ABG Total CO2 ABG O2 Saturation ABG O2 Content ABG Base Excess ABG Hemoglobin ABG Carboxyhemoglobin POC ABG HHb (Measured) ABG Methemoglobin ABG O2 Capacity Scout Test VBG pH VBG pCO2 VBG HCO3 VBG Total CO2 VBG O2 Sat (Calc) VBG Base Excess VBG Potassium A-a O2 Difference Hgb O2 Saturation Glucose Lactate Liter Flow Vent Mode FiO2 Blood Gas Comments Crit Value Called To Crit Value Called By Crit Value Read Back Blood Gas Notified Time Sodium Potassium Chloride Carbon Dioxide Anion Gap BUN Creatinine Est GFR ( Amer) Est GFR (Non-Af Amer) POC Glucose (mg/dL) 85 Random Glucose Lactic Acid Calcium Magnesium 1.2 L Total Bilirubin AST ALT Alkaline Phosphatase Troponin I 1.0500 H* Total Protein Albumin Globulin Albumin/Globulin Ratio Venous Blood Potassium Urine Color Urine Clarity Urine pH Ur Specific [place] Urine Protein Urine Glucose (UA) Urine Ketones Urine Blood Urine Nitrate Urine Bilirubin Urine Urobilinogen Ur Leukocyte Esterase Urine RBC (Auto) Urine Microscopic WBC Ur Squamous Epith Cells Urine Bacteria Hyaline Casts Digoxin Influenza Typ A,B (EIA) Blood Type Blood Type Confirm Antibody Screen BBK History Checked 05/19/17 05/19/17 05/19/17 00:45 04:50 04:50 WBC 20.1 H RBC 4.07 L Hgb 13.0 Hct 37.8 MCV 92.7 MCH 31.9 H MCHC 34.5 RDW 13.2 Plt Count 207 MPV 7.3 Neut % (Auto) 87.0 H Lymph % (Auto) 6.4 L [place] % (Auto) 6.3 Eos % (Auto) 0.0 Baso % (Auto) 0.3 Neut # (Auto) 17.5 H Lymph # (Auto) 1.3 [place] # (Auto) 1.3 H Eos # (Auto) 0.0 Baso # (Auto) 0.1 Neutrophils % (Manual) Band Neutrophils % Lymphocytes % (Manual) Monocytes % (Manual) Eosinophils % (Manual) Platelet Estimate PT INR APTT pCO2 pO2 HCO3 ABG pH ABG Total CO2 ABG O2 Saturation ABG O2 Content ABG Base Excess ABG Hemoglobin ABG Carboxyhemoglobin POC ABG HHb (Measured) ABG Methemoglobin ABG O2 Capacity Scout Test VBG pH VBG pCO2 VBG HCO3 VBG Total CO2 VBG O2 Sat (Calc) VBG Base Excess VBG Potassium A-a O2 Difference Hgb O2 Saturation Glucose Lactate Liter Flow Vent Mode FiO2 Blood Gas Comments Crit Value Called To Crit Value Called By Crit Value Read Back Blood Gas Notified Time Sodium Potassium Chloride Carbon Dioxide Anion Gap BUN Creatinine Est GFR ( Amer) Est GFR (Non-Af Amer) POC Glucose (mg/dL) 124 H Random Glucose Lactic Acid Calcium Magnesium Total Bilirubin AST ALT Alkaline Phosphatase Troponin I Total Protein Albumin Globulin Albumin/Globulin Ratio Venous Blood Potassium Urine Color Urine Clarity Urine pH Ur Specific [place] Urine Protein Urine Glucose (UA) Urine Ketones Urine Blood Urine Nitrate Urine Bilirubin Urine Urobilinogen Ur Leukocyte Esterase Urine RBC (Auto) Urine Microscopic WBC Ur Squamous Epith Cells Urine Bacteria Hyaline Casts Digoxin Influenza Typ A,B (EIA) Blood Type A POSITIVE Blood Type Confirm Antibody Screen Negative BBK History Checked No verified bt 05/19/17 05/19/17 05/19/17 04:50 04:50 04:53 WBC RBC Hgb Hct MCV MCH MCHC RDW Plt Count MPV Neut % (Auto) Lymph % (Auto) [place] % (Auto) Eos % (Auto) Baso % (Auto) Neut # (Auto) Lymph # (Auto) [place] # (Auto) Eos # (Auto) Baso # (Auto) Neutrophils % (Manual) Band Neutrophils % Lymphocytes % (Manual) Monocytes % (Manual) Eosinophils % (Manual) Platelet Estimate PT 31.2 H D INR 2.8 H D APTT 44.6 H pCO2 34 L pO2 85 HCO3 26.0 ABG pH 7.47 H ABG Total CO2 25.7 ABG O2 Saturation 97.8 ABG O2 Content 17.2 ABG Base Excess 1.4 ABG Hemoglobin 12.9 ABG Carboxyhemoglobin 2.2 H POC ABG HHb (Measured) 2.1 ABG Methemoglobin 1.2 ABG O2 Capacity 17.6 Scout Test Yes VBG pH VBG pCO2 VBG HCO3 VBG Total CO2 VBG O2 Sat (Calc) VBG Base Excess VBG Potassium A-a O2 Difference 158.0 Hgb O2 Saturation 94.5 L Glucose Lactate Liter Flow 35 Vent Mode Hfov FiO2 40.0 Blood Gas Comments Crit Value Called To Crit Value Called By Crit Value Read Back Blood Gas Notified Time Sodium 138 Potassium 4.1 Chloride 99 Carbon Dioxide 26 Anion Gap 17 BUN 25 H Creatinine 1.1 Est GFR ( Amer) > 60 Est GFR (Non-Af Amer) > 60 POC Glucose (mg/dL) Random Glucose 132 H Lactic Acid Calcium 8.2 L Magnesium Total Bilirubin 1.7 H AST 63 H D ALT 38 Alkaline Phosphatase 38 Troponin I Total Protein 5.6 L Albumin 2.9 L Globulin 2.7 Albumin/Globulin Ratio 1.1 Venous Blood Potassium Urine Color Urine Clarity Urine pH Ur Specific [place] Urine Protein Urine Glucose (UA) Urine Ketones Urine Blood Urine Nitrate Urine Bilirubin Urine Urobilinogen Ur Leukocyte Esterase Urine RBC (Auto) Urine Microscopic WBC Ur Squamous Epith Cells Urine Bacteria Hyaline Casts Digoxin Influenza Typ A,B (EIA) Blood Type Blood Type Confirm Antibody Screen BBK History Checked 05/19/17 05/19/17 05/19/17 05:00 05:08 07:00 WBC RBC Hgb Hct MCV MCH MCHC RDW Plt Count MPV Neut % (Auto) Lymph % (Auto) [place] % (Auto) Eos % (Auto) Baso % (Auto) Neut # (Auto) Lymph # (Auto) [place] # (Auto) Eos # (Auto) Baso # (Auto) Neutrophils % (Manual) Band Neutrophils % Lymphocytes % (Manual) Monocytes % (Manual) Eosinophils % (Manual) Platelet Estimate PT INR APTT pCO2 pO2 HCO3 ABG pH ABG Total CO2 ABG O2 Saturation ABG O2 Content ABG Base Excess ABG Hemoglobin ABG Carboxyhemoglobin POC ABG HHb (Measured) ABG Methemoglobin ABG O2 Capacity Scout Test VBG pH VBG pCO2 VBG HCO3 VBG Total CO2 VBG O2 Sat (Calc) VBG Base Excess VBG Potassium A-a O2 Difference Hgb O2 Saturation Glucose Lactate Liter Flow Vent Mode FiO2 Blood Gas Comments Crit Value Called To Crit Value Called By Crit Value Read Back Blood Gas Notified Time Sodium Potassium Chloride Carbon Dioxide Anion Gap BUN Creatinine Est GFR ( Amer) Est GFR (Non-Af Amer) POC Glucose (mg/dL) 126 H Random Glucose Lactic Acid 1.8 Calcium Magnesium Total Bilirubin AST ALT Alkaline Phosphatase Troponin I Total Protein Albumin Globulin Albumin/Globulin Ratio Venous Blood Potassium Urine Color Urine Clarity Urine pH Ur Specific [place] Urine Protein Urine Glucose (UA) Urine Ketones Urine Blood Urine Nitrate Urine Bilirubin Urine Urobilinogen Ur Leukocyte Esterase Urine RBC (Auto) Urine Microscopic WBC Ur Squamous Epith Cells Urine Bacteria Hyaline Casts Digoxin Influenza Typ A,B (EIA) Blood Type Blood Type Confirm A POSITIVE Antibody Screen BBK History Checked
--- NOTE | 2017-05-19 10:31 | CP.PCM.PN ---
Subjective - Date & Time of Evaluation Date of Evaluation: 05/19/17 Time of Evaluation: 07:40 - Subjective Subjective: Patient was seen and evaluated at bedside this am; reported no acute events overnight. No more episodes of diarrhea. Admits to still feeling weak and not at his baseline. States he feels he can breathe well with the nasal canula on. Denies chest pain, shortness of breath, nausea, abdominal pain, joint/ muskuloskeletal pain. Objective - Vital Signs/Intake and Output Vital Signs (last 24 hours): Temp Pulse Resp BP Pulse Ox 98.0 F 85 23 99/52 L 100 05/19/17 08:18 05/19/17 10:00 05/19/17 10:00 05/19/17 10:00 05/19/17 10:00 Intake and Output: 05/19/17 05/19/17 06:59 18:59 Intake Total 700 220 Output Total 350 350 Balance 350 -130 - Medications Medications: Current Medications Atorvastatin Calcium (Lipitor) 20 mg PO DAILY [facility] Last Admin: 05/19/17 08:47 Dose: 20 mg Dextrose (Dextrose 50% Inj) 0 ml IV STAT PRN; Protocol PRN Reason: Hypoglycemia Protocol Dextrose (Glutose 15) 0 gm PO ONCE PRN; Protocol PRN Reason: Hypoglycemia Protocol Digoxin (Lanoxin) 0.25 mg PO DAILY [facility] Last Admin: 05/19/17 08:48 Dose: 0.25 mg Famotidine (Pepcid) 20 mg PO Q12 [facility] Last Admin: 05/19/17 08:48 Dose: 20 mg Finasteride (Proscar) 5 mg PO DAILY [facility] Last Admin: 05/19/17 08:47 Dose: 5 mg Gabapentin (Neurontin) 300 mg PO HS [facility] Last Admin: 05/18/17 22:14 Dose: 300 mg Glucagon (Glucagen Diagnostic Kit) 0 mg IM STAT PRN; Protocol PRN Reason: Hypoglycemia Protocol Piperacillin Sod/Tazobactam (Sod 3.375 gm/ Sodium Chloride) 100 mls @ 100 mls/ hr IVPB Q6 [facility] PRN Reason: Protocol Last Admin: 05/19/17 08:59 Dose: 100 mls/hr Dextrose/Sodium Chloride (Dextrose 5%/0.45% Ns 1000 Ml) 1,000 mls @ 100 mls/hr IV .Q10H [facility] Stop: 05/19/17 22:07 Last Admin: 05/18/17 22:26 Dose: 100 mls/hr Insulin Detemir (Levemir) 20 units SC HS [facility] Last Admin: 05/18/17 22:09 Dose: Not Given Levalbuterol HCl (Xopenex) 1.25 mg INH RQ8 PRN PRN Reason: Shortness of Breath Losartan Potassium (Cozaar) 25 mg PO DAILY [facility] Last Admin: 05/19/17 08:47 Dose: 25 mg Fluticasone/Salmeterol (Advair Diskus 500/50) 1 puff IH Q12 [facility] Last Admin: 05/18/17 21:44 Dose: 1 inhaler Tiotropium [place] (Spiriva) 18 mcg INH DAILY [facility] - Labs Labs: 05/19/17 04:50 05/19/17 04:50 PT 31.2 Seconds (9.8-13.1) H D 05/19/17 04:50 INR 2.8 (0.9-1.2) H D 05/19/17 04:50 APTT 44.6 Seconds (25.6-37.1) H 05/19/17 04:50 - Constitutional Appears: No Acute Distress - Head Exam Additional comments: flushed face - Eye Exam Eye Exam: Normal appearance - ENT Exam ENT Exam: Mucous Membranes Moist - Respiratory Exam Respiratory Exam: Decreased Breath Sounds, NORMAL BREATHING PATTERN. absent: Wheezes, Respiratory Distress - Cardiovascular Exam Cardiovascular Exam: Irregular Rhythm Additional comments: irregularly irregular - GI/Abdominal Exam GI & Abdominal Exam: Soft. absent: Tenderness - Extremities Exam Extremities Exam: Normal Capillary Refill. absent: Calf Tenderness, Pedal Edema , Tenderness - Back Exam Back Exam: NORMAL INSPECTION - Neurological Exam Neurological Exam: Alert, Awake - Skin Skin Exam: Dry, Intact, Normal Color, Warm Assessment and Plan - Assessment and Plan (Free Text) Plan: # Sepsis Secondary to pneumonia seen on chest CT, failed outpatient treatment on zithromax. Lactate trend 3.3-->4.1--> 2.6--> repeat lactate this am 1.8. Leukocytosis 20. Pt received 1.6L fluid bolus; fluids held at this time due to fluid overload. S/p levaquin and rocephin in ED. - ICU consult, admitted to ICU. - Zosyn IVPB Q6, Day 2 - CBC, CMP in am # NSTEMI - Rise in troponins, suspected to be secondary possible anterolateral subendocardial injury as read on EKG. No indication for code heart at this time. Pt anticoagulated on coumadin with INR 3.7, coumadin held at this time. - Troponin trending down this am; 2 consecutively trending down values. - Cardiology consult- Dr. Last; recommendations appreciated - Echo today - ICU consult, admitted to ICU - aspirin, plavix # A fib with RVR - RVR resolved; pt is rate controlled. - C/w digoxin home dose - Coumadin held at this time, will trend INR - Digoxin level 1.5 # COPD - Pulmonology consult- Dr. Hameed; consult appreciated - Pending sputum culture, strep, mycoplasma, legionella - Continue with medications as per pulmonary - High flow O2 due to mild overload resulted from treating sepsis # Diabetes Mellitus - c/w home dose insulin levemir - c/w prandin home dose - hypoglycemia protocol # HTN - Normotensive - Restart home meds - Monitor for changes # HLD - C/w home meds atorvastatin 40mg # DVT prophylaxis - Pt on coumadin, INR 3.7 on admission - INR this am 2.8 - Hold coumadin for now, repeat INR in am
[2017-05-19] MEDS: Tiotropium 18 mcg Cap For Inhalation INH SCH (11:24)
--- NOTE | 2017-05-19 11:38 | RAD ---
HISTORY: chf COMPARISON: 05/18/2017 FINDINGS: LUNGS: Lingular consolidation as on chest CT examination of 05/18/2017. PLEURA: No significant pleural effusion identified, no pneumothorax apparent. CARDIOVASCULAR: Normal. OSSEOUS STRUCTURES: No significant abnormalities. VISUALIZED UPPER ABDOMEN: Normal. OTHER FINDINGS: None. IMPRESSION: Worsening lingular consolidation.
--- NOTE | 2017-05-19 11:53 | CARD ---
APPROVED REPORT EXAM: Two-dimensional and M-mode echocardiogram with Doppler and color Doppler. Other Information Quality : GoodRhythm : NSR INDICATION Non STEMI 2D DIMENSIONS IVSd1.29 (0.7-1.1cm)LVDd4.07 (3.9-5.9cm) LVOT Diameter1.95 (1.8-2.4cm)PWd0.91 (0.7-1.1cm) IVSs1.54 (0.8-1.2cm)LVDs2.87 (2.5-4.0cm) FS (%) 29.5 %PWs1.37 (0.8-1.2cm) M-Mode DIMENSIONS Left Atrium (MM)3.59 (2.5-4.0cm)IVSd0.74 (0.7-1.1cm) Aortic Root2.74 (2.2-3.7cm)LVDd7.26 (4.0-5.6cm) Aortic Cusp Exc.1.12 (1.5-2.0cm)PWd1.12 (0.7-1.1cm) IVSs1.06 cmFS (%) 19 % LVDs5.88 (2.0-3.8cm)PWs1.09 cm Mitral Valve E/A ratio0.0 TDI E/Lateral E'0.0E/Medial E'0.0 Pulmonary Valve PV Peak Rlazelxr94.7cm/s LEFT VENTRICLE The left ventricle is normal size. The systolic function is mildly impaired. The Ejection Fraction is 40-45%. There is normal LV segmental wall motion. The left ventricular diastolic function is normal. RIGHT VENTRICLE The right ventricle is normal size. There is normal right ventricular wall thickness. The right ventricular systolic function is normal. ATRIA The left atrium size is normal. The right atrium size is normal. AORTIC VALVE The aortic valve is normal in structure. No aortic regurgitation is present. There is no aortic valvular stenosis. MITRAL VALVE The mitral valve is normal in structure. There is no mitral valve stenosis. There is no mitral valve regurgitation noted. TRICUSPID VALVE The tricuspid valve is normal in structure. There is no tricuspid valve regurgitation noted. PULMONIC VALVE The pulmonary valve is normal in structure. There is no pulmonic valvular regurgitation. GREAT VESSELS The aortic root is normal in size. The IVC is normal in size and collapses >50% with inspiration. PERICARDIAL EFFUSION The pericardium appears normal. <Conclusion> The left ventricle is normal size. The systolic function is mildly impaired. The Ejection Fraction is 40-45%.
--- NOTE | 2017-05-19 11:57 | CARD ---
APPROVED REPORT EKG Measurement Heart [id number] <Conclusion> Atrial fibrillation Septal infarct, age undetermined Abnormal ECG
--- NOTE | 2017-05-19 11:59 | CARD ---
APPROVED REPORT EKG Measurement Heart [id number] <Conclusion> Atrial fibrillation with premature ventricular or aberrantly conducted complexes Rightward axis Septal infarct, age undetermined ST & T wave abnormality, consider inferolateral ischemia Abnormal ECG
[2017-05-19] MEDS: Insulin Detemir 100 Units/ml Inj SC SCH (21:44)
[2017-05-20] MEDS: Piperacillin/Tazobact 3.375 GM in Sodium Chloride 0.9% 100 ML IVPB SCH ×4 (04:57→22:16)
[2017-05-20 05:40] LABS: HEMOGLOBIN 12.8 g/dL (12.0-18.0); MEAN CELL VOLUME 92.1 fl (80.0-94.0); MEAN CORPUSCULAR HGB CONC 34.8 g/dL (33.0-37.0); RBC 3.99 Mil/uL (4.40-5.90); RED CELL DISTRIBUTION WIDTH 13.3 % (11.5-14.5); WHITE BLOOD COUNT 15.9 K/uL (4.8-10.8)
[2017-05-20 05:45] LABS: ALT/SGPT 41 U/L (21-72); AST/SGOT 73 U/L (17-59); BLOOD UREA NITROGEN 23 mg/dl (9-20); CALCIUM 8.6 mg/dL (8.4-10.2); GFR AFRICAN-AMERICAN > 60; GFR NON-AFRICAN AMERICAN > 60
[2017-05-20 06:27] LABS: INR 1.6 (0.9-1.2); PARTIAL THROMBOPLASTIN TIME 33.7 Seconds (25.6-37.1); PROTHROMBIN TIME 17.6 Seconds (9.8-13.1)
[2017-05-20] MEDS: Digoxin 250 mcg (0.25 mg) Tab PO SCH (08:30)
--- NOTE | 2017-05-20 10:00 | CP.PCM.PN ---
Subjective - Date & Time of Evaluation Date of Evaluation: 05/20/17 Time of Evaluation: 10:00 - Subjective Subjective: Seated up in bed, comfortable and conversant. No complaints of chest pain or shortness of breath. Expectorating a brownish/reddish sputum. One sputum sent for culture, report pending. PCXR this morning shows left para-hilar/retrocardiac pneumonic infiltrate. Leukocytosis has decreased to 15. No febrile episode since the ER. Oxygenation has been good using HFNC. Pharynx is pink and moist. Neck is supple and trachea midline. No palpable lymphadenopathy. Hyper-resonance on chest percussion. Breath sounds are diminished bilaterally w/o audible wheeze. Few dry rales in lower lobes. No bronchial breath sounds. Occasional rhonchi in lower lung sy. Heart sounds are distant, irregular. HAYDE/lingular pneumonia; appears to be responding to current therapy. Sputum culture result pending, no change in antibiotic therapy. Continue aerosol therapy. Sputum cytology screening x 3. Follow with daily CBC and CXR. LABA on hold in view of [place]. Continue LAMA; and low dose levalbuterol will be used PRN only. Objective - Vital Signs/Intake and Output Vital Signs (last 24 hours): Temp Pulse Resp BP Pulse Ox 99.0 F 72 22 125/52 L 99 05/20/17 08:00 05/20/17 08:31 18 09:03 05/20/17 08:31 05/20/17 08:00 Intake and Output: 05/19/17 05/20/17 23:59 11:59 Intake Total 570 358 Output Total 400 280 Balance 170 78 - Medications Medications: Current Medications Atorvastatin Calcium (Lipitor) 20 mg PO DAILY [facility] Last Admin: 05/20/17 08:32 Dose: 20 mg Clopidogrel Bisulfate (Plavix) 75 mg PO DAILY [facility] Last Admin: 05/20/17 08:31 Dose: 75 mg Dextrose (Dextrose 50% Inj) 0 ml IV STAT PRN; Protocol PRN Reason: Hypoglycemia Protocol Dextrose (Glutose 15) 0 gm PO ONCE PRN; Protocol PRN Reason: Hypoglycemia Protocol Digoxin (Lanoxin) 0.25 mg PO DAILY [facility] Last Admin: 05/20/17 08:30 Dose: 0.25 mg Famotidine (Pepcid) 20 mg PO Q12 [facility] Last Admin: 05/20/17 08:31 Dose: 20 mg Finasteride (Proscar) 5 mg PO DAILY [facility] Last Admin: 05/20/17 08:31 Dose: 5 mg Gabapentin (Neurontin) 300 mg PO HS [facility] Last Admin: 05/18/17 22:14 Dose: 300 mg Glucagon (Glucagen Diagnostic Kit) 0 mg IM STAT PRN; Protocol PRN Reason: Hypoglycemia Protocol Piperacillin Sod/Tazobactam (Sod 3.375 gm/ Sodium Chloride) 100 mls @ 100 mls/ hr IVPB Q6 [facility] PRN Reason: Protocol Last Admin: 05/20/17 09:17 Dose: 100 mls/hr Insulin Detemir (Levemir) 20 units SC HS [facility] Last Admin: 05/19/17 21:44 Dose: 20 u Levalbuterol HCl (Xopenex) 1.25 mg INH RQ8 PRN PRN Reason: Shortness of Breath Losartan Potassium (Cozaar) 25 mg PO DAILY [facility] Last Admin: 05/20/17 08:31 Dose: 25 mg Fluticasone/Salmeterol (Advair Diskus 500/50) 1 puff IH Q12 [facility] Last Admin: 05/18/17 21:44 Dose: 1 inhaler Tiotropium [place] (Spiriva) 18 mcg INH DAILY [facility] Last Admin: 05/19/17 11:24 Dose: 18 mcg - Labs Labs: 05/20/17 05:08 05/20/17 05:08 PT 17.6 Seconds (9.8-13.1) H D 05/20/17 05:08 INR 1.6 (0.9-1.2) H D 05/20/17 05:08 APTT 33.7 Seconds (25.6-37.1) D 05/20/17 05:08 Assessment and Plan (1) Myocardial infarction Status: Acute (2) Fever Status: Acute (3) Leukocytosis Status: Acute (4) Lactic acidosis Status: Acute (5) Pulmonary emphysema Status: Chronic (6) Pulmonary nodules/lesions, multiple Status: Chronic (7) Atrial fibrillation Status: Chronic (8) Type 2 diabetes mellitus Status: Chronic
[2017-05-20] MEDS: Tiotropium 18 mcg Cap For Inhalation INH SCH (10:34)
--- NOTE | 2017-05-20 11:10 | CP.CCUPN ---
CCU Subjective - Physician Review Events Since Last Encounter (Free Text): 05/20/17 11:04 Alert and oriented, looks comfortable on RA, BP well controlled No more diarrhea, last episode was 3 days ago. CCU Objective - Vital Signs / Intake & Output Vital Signs (Last 4 hours): Vital Signs Temp Pulse Resp BP Pulse Ox 05/20/17 10:00 73 27 H 115/48 L 97 05/20/17 09:03 22 05/20/17 08:31 72 125/52 L 05/20/17 08:00 99.0 F 75 27 H 125/52 L 99 Intake and Output (Last 8hrs): Intake & Output 05/19/17 05/20/17 05/20/17 22:59 06:59 14:59 Intake Total 450 238 220 Output Total 300 280 Balance 150 -42 220 Intake: IV 10 18 Intake, Piggyback 200 100 100 Oral 240 120 120 Output: Urine 300 280 Urine, Voided 300 280 Other: # Bowel Movements 0 - Physical Exam Narrative Physical Exam (Free Text): 05/20/17 11:05 P/E neck: No JVD Lungs: No ronchi, crackels Abdomen: soft, non-tender Ext: No edema Heart: no gallop. - Medications Active Medications: Active Medications Generic Name Dose Route Start Last Admin Trade Name Freq PRN Reason Stop Dose Admin Atorvastatin Calcium 20 mg 05/19/17 09:00 05/20/17 08:32 Lipitor PO 20 mg DAILY [facility] Administration Clopidogrel Bisulfate 75 mg 05/20/17 09:00 05/20/17 08:31 Plavix PO 75 mg DAILY [facility] Administration Dextrose 0 ml 05/18/17 20:31 Dextrose 50% Inj IV STAT PRN Hypoglycemia Protocol Protocol Dextrose 0 gm 05/18/17 20:31 Glutose 15 PO ONCE PRN Hypoglycemia Protocol Protocol Digoxin 0.25 mg 05/19/17 09:00 05/20/17 08:30 Lanoxin PO 0.25 mg DAILY [facility] Administration Famotidine 20 mg 05/18/17 21:00 05/20/17 08:31 Pepcid PO 20 mg Q12 [facility] Administration Finasteride 5 mg 05/19/17 09:00 05/20/17 08:31 Proscar PO 5 mg DAILY [facility] Administration Gabapentin 300 mg 05/18/17 22:00 05/18/17 22:14 Neurontin PO 300 mg HS [facility] Administration Glucagon 0 mg 05/18/17 20:31 Glucagen Diagnostic Kit IM STAT PRN Hypoglycemia Protocol Protocol Piperacillin Sod/Tazobactam 100 mls @ 100 mls/hr 05/18/17 22:00 05/20/17 09: 17 Sod 3.375 gm/ Sodium Chloride IVPB 100 mls/hr Q6 [facility] Administration Protocol Insulin Detemir 20 units 05/18/17 22:00 05/19/17 21:44 Levemir SC 20 u HS [facility] Administration Levalbuterol HCl 1.25 mg 05/18/17 16:23 Xopenex INH RQ8 PRN Shortness of Breath Losartan Potassium 25 mg 05/19/17 09:00 05/20/17 08:31 Cozaar PO 25 mg DAILY [facility] Administration Fluticasone/Salmeterol 1 puff 05/18/17 21:00 05/18/17 21:44 Advair Diskus 500/50 IH 1 inhaler Q12 [facility] Administration Tiotropium [place] 18 mcg 05/19/17 09:00 05/20/17 10:34 Spiriva INH 18 mcg DAILY [facility] Administration - Patient Studies Lab Studies: Microbiology Studies 05/19/17 18:00 Gram Stain - Final Sputum Induced 05/18/17 14:20 Urine Culture - Final Urine,Clean Catch No Growth (<1,000 CFU/ML) 05/18/17 12:30 Blood Culture - Preliminary Blood-Venous NO GROWTH AFTER 24 HOURS 05/18/17 11:45 Blood Culture - Preliminary Blood-Venous NO GROWTH AFTER 24 HOURS Lab Studies 05/20/17 05/20/17 05/20/17 Range/Units 06:46 05:08 05:08 WBC (4.8-10.8) K/uL RBC (4.40-5.90) Mil/uL Hgb (12.0-18.0) g/dL Hct (35.0-51.0) % MCV (80.0-94.0) fl MCH (27.0-31.0) pg MCHC (33.0-37.0) g/dL RDW (11.5-14.5) % Plt Count (130-400) K/uL PT 17.6 H D (9.8-13.1) Seconds INR 1.6 H D (0.9-1.2) APTT 33.7 D (25.6-37.1) Seconds Sodium 140 (132-148) mmol/l Potassium 3.6 (3.6-5.0) MMOL/L Chloride 101 (98-107) mmol/L Carbon Dioxide 28 (22-30) mmol/L Anion Gap 15 (10-20) BUN 23 H (9-20) mg/dl Creatinine 1.1 (0.8-1.5) mg/dl Est GFR ( Amer) > 60 Est GFR (Non-Af Amer) > 60 POC Glucose (mg/dL) 81 (65-110) mg/dL Random Glucose 78 (75-110) mg/dL Calcium 8.6 (8.4-10.2) mg/dL Total Bilirubin 1.1 (0.2-1.3) mg/dl AST 73 H (17-59) U/L ALT 41 (21-72) U/L Alkaline Phosphatase 40 (38-126) U/L Troponin I (0.00-0.120) ng/mL Total Protein 6.0 L (6.3-8.2) G/DL Albumin 3.0 L (3.5-5.0) g/dL Globulin 3.0 (2.2-3.9) gm/dL Albumin/Globulin Ratio 1.0 (1.0-2.1) Procalcitonin (0.19-0.49) NG/ML Ur L.pneumophila Ag (NEGATIVE) 05/20/17 05/20/17 05/19/17 Range/Units 05:08 04:57 21:26 WBC 15.9 H (4.8-10.8) K/uL RBC 3.99 L (4.40-5.90) Mil/uL Hgb 12.8 (12.0-18.0) g/dL Hct 36.7 (35.0-51.0) % MCV 92.1 (80.0-94.0) fl MCH 32.0 H (27.0-31.0) pg MCHC 34.8 (33.0-37.0) g/dL RDW 13.3 (11.5-14.5) % Plt Count 219 (130-400) K/uL PT (9.8-13.1) Seconds INR (0.9-1.2) APTT (25.6-37.1) Seconds Sodium (132-148) mmol/l Potassium (3.6-5.0) MMOL/L Chloride (98-107) mmol/L Carbon Dioxide (22-30) mmol/L Anion Gap (10-20) BUN (9-20) mg/dl Creatinine (0.8-1.5) mg/dl Est GFR ( Amer) Est GFR (Non-Af Amer) POC Glucose (mg/dL) 61 L 130 H (65-110) mg/dL Random Glucose (75-110) mg/dL Calcium (8.4-10.2) mg/dL Total Bilirubin (0.2-1.3) mg/dl AST (17-59) U/L ALT (21-72) U/L Alkaline Phosphatase (38-126) U/L Troponin I (0.00-0.120) ng/mL Total Protein (6.3-8.2) G/DL Albumin (3.5-5.0) g/dL Globulin (2.2-3.9) gm/dL Albumin/Globulin Ratio (1.0-2.1) Procalcitonin (0.19-0.49) NG/ML Ur L.pneumophila Ag (NEGATIVE) 05/19/17 05/19/17 05/19/17 Range/Units 17:09 13:05 11:29 WBC (4.8-10.8) K/uL RBC (4.40-5.90) Mil/uL Hgb (12.0-18.0) g/dL Hct (35.0-51.0) % MCV (80.0-94.0) fl MCH (27.0-31.0) pg MCHC (33.0-37.0) g/dL RDW (11.5-14.5) % Plt Count (130-400) K/uL PT (9.8-13.1) Seconds INR (0.9-1.2) APTT (25.6-37.1) Seconds Sodium (132-148) mmol/l Potassium (3.6-5.0) MMOL/L Chloride (98-107) mmol/L Carbon Dioxide (22-30) mmol/L Anion Gap (10-20) BUN (9-20) mg/dl Creatinine (0.8-1.5) mg/dl Est GFR ( Amer) Est GFR (Non-Af Amer) POC Glucose (mg/dL) 133 H 142 H (65-110) mg/dL Random Glucose (75-110) mg/dL Calcium (8.4-10.2) mg/dL Total Bilirubin (0.2-1.3) mg/dl AST (17-59) U/L ALT (21-72) U/L Alkaline Phosphatase (38-126) U/L Troponin I (0.00-0.120) ng/mL Total Protein (6.3-8.2) G/DL Albumin (3.5-5.0) g/dL Globulin (2.2-3.9) gm/dL Albumin/Globulin Ratio (1.0-2.1) Procalcitonin (0.19-0.49) NG/ML Ur L.pneumophila Ag Negative (NEGATIVE) 05/19/17 05/18/17 Range/Units 10:12 05:00 WBC (4.8-10.8) K/uL RBC (4.40-5.90) Mil/uL Hgb (12.0-18.0) g/dL Hct (35.0-51.0) % MCV (80.0-94.0) fl MCH (27.0-31.0) pg MCHC (33.0-37.0) g/dL RDW (11.5-14.5) % Plt Count (130-400) K/uL PT (9.8-13.1) Seconds INR (0.9-1.2) APTT (25.6-37.1) Seconds Sodium (132-148) mmol/l Potassium (3.6-5.0) MMOL/L Chloride (98-107) mmol/L Carbon Dioxide (22-30) mmol/L Anion Gap (10-20) BUN (9-20) mg/dl Creatinine (0.8-1.5) mg/dl Est GFR ( Amer) Est GFR (Non-Af Amer) POC Glucose (mg/dL) (65-110) mg/dL Random Glucose (75-110) mg/dL Calcium (8.4-10.2) mg/dL Total Bilirubin (0.2-1.3) mg/dl AST (17-59) U/L ALT (21-72) U/L Alkaline Phosphatase (38-126) U/L Troponin I 0.8540 H* (0.00-0.120) ng/mL Total Protein (6.3-8.2) G/DL Albumin (3.5-5.0) g/dL Globulin (2.2-3.9) gm/dL Albumin/Globulin Ratio (1.0-2.1) Procalcitonin 13.81 H (0.19-0.49) NG/ML Ur L.pneumophila Ag (NEGATIVE) Laboratory Results - last 24 hr 05/18/17 05/19/17 05/19/17 05:00 10:12 11:29 WBC RBC Hgb Hct MCV MCH MCHC RDW Plt Count PT INR APTT Sodium Potassium Chloride Carbon Dioxide Anion Gap BUN Creatinine Est GFR ( Amer) Est GFR (Non-Af Amer) POC Glucose (mg/dL) 142 H Random Glucose Calcium Total Bilirubin AST ALT Alkaline Phosphatase Troponin I 0.8540 H* Total Protein Albumin Globulin Albumin/Globulin Ratio Procalcitonin 13.81 H Ur L.pneumophila Ag 05/19/17 05/19/17 05/19/17 13:05 17:09 21:26 WBC RBC Hgb Hct MCV MCH MCHC RDW Plt Count PT INR APTT Sodium Potassium Chloride Carbon Dioxide Anion Gap BUN Creatinine Est GFR ( Amer) Est GFR (Non-Af Amer) POC Glucose (mg/dL) 133 H 130 H Random Glucose Calcium Total Bilirubin AST ALT Alkaline Phosphatase Troponin I Total Protein Albumin Globulin Albumin/Globulin Ratio Procalcitonin Ur L.pneumophila Ag Negative 05/20/17 05/20/17 05/20/17 04:57 05:08 05:08 WBC 15.9 H RBC 3.99 L Hgb 12.8 Hct 36.7 MCV 92.1 MCH 32.0 H MCHC 34.8 RDW 13.3 Plt Count 219 PT INR APTT Sodium 140 Potassium 3.6 Chloride 101 Carbon Dioxide 28 Anion Gap 15 BUN 23 H Creatinine 1.1 Est GFR ( Amer) > 60 Est GFR (Non-Af Amer) > 60 POC Glucose (mg/dL) 61 L Random Glucose 78 Calcium 8.6 Total Bilirubin 1.1 AST 73 H ALT 41 Alkaline Phosphatase 40 Troponin I Total Protein 6.0 L Albumin 3.0 L Globulin 3.0 Albumin/Globulin Ratio 1.0 Procalcitonin Ur L.pneumophila Ag 05/20/17 05/20/17 05:08 06:46 WBC RBC Hgb Hct MCV MCH MCHC RDW Plt Count PT 17.6 H D INR 1.6 H D APTT 33.7 D Sodium Potassium Chloride Carbon Dioxide Anion Gap BUN Creatinine Est GFR ( Amer) Est GFR (Non-Af Amer) POC Glucose (mg/dL) 81 Random Glucose Calcium Total Bilirubin AST ALT Alkaline Phosphatase Troponin I Total Protein Albumin Globulin Albumin/Globulin Ratio Procalcitonin Ur L.pneumophila Ag Fingerstick Blood Sugar Results: 81 Critical Care Progress Note - Nutrition Nutrition: Nutrition Category Date Time Status Consistent Carbohydrate [DIET] Diets 05/19/17 Lunch Active Assessment/Plan - Assessment and Plan (Free Text) Assessment: IMPRESSION / MAJOR PROBLEMS NOW: 1. ACS: positove TNI: most liley demand ischemia, no CP, Echo showed EF 45% 2. AMS- Improved, back to normal 3. Sepsis: from PNA Lactates have normalized, 4. COPD/Bullous Lung Disease with Pulm Nodules and new left hilar mass. 5- HTN: BP well controlled PLAN: 1. Echo report reviewed, CXR film from 05/19 reviewed, no pulm congestion, EF 45% 2. ASA given in ER, continue statin, add cardioselective BBs.on Plavix 3. Empiric abx coverage; Panculture. PCT level still pending. 4. Formal cardiology eval for appropriateness of C Cath. 5. Full Code status. 6- Transfer to tele.
--- NOTE | 2017-05-20 11:48 | RAD ---
HISTORY: pneumonia COMPARISON: 05/19/2017 FINDINGS: LUNGS: Chronic interstitial change and/or scarring is seen in the left mid to lower lung field without interval change. A small underlying pneumonia in this area is not excluded. There is also mild linear scarring in the right upper, unchanged. PLEURA: No significant pleural effusion identified, no pneumothorax apparent. CARDIOVASCULAR: Stable. No new CHF. OSSEOUS STRUCTURES: Stable. VISUALIZED UPPER ABDOMEN: Normal. OTHER FINDINGS: None. IMPRESSION: Interstitial change and/or scarring in the left lower lobe although a small underlying pneumonia in this area cannot be excluded. No other new infiltrate or CHF.
--- NOTE | 2017-05-20 12:19 | CP.PCM.PN ---
Subjective - Date & Time of Evaluation Date of Evaluation: 05/20/17 Time of Evaluation: 10:45 - Subjective Subjective: Has been well overnight No chills or fever Still needs hiflo O2 delivery for maintaining adequate oxygenation A Fib at 70-80 BPM BP 156/70 mm Hg laying down and standing up JVP flat, no oedema over feet Echo images reviewed LV syst function preserved No significant valvulopathy Collapsible IVC indicates no significant PAH May be sent out of ICU when deemed stable by PMD Objective - Vital Signs/Intake and Output Vital Signs (last 24 hours): Temp Pulse Resp BP Pulse Ox 99.0 F 73 27 H 115/48 L 97 05/20/17 08:00 05/20/17 10:00 05/20/17 10:00 05/20/17 10:00 05/20/17 10:00 Intake and Output: 05/20/17 05/20/17 06:59 18:59 Intake Total 468 220 Output Total 580 Balance -112 220 - Medications Medications: Current Medications Atorvastatin Calcium (Lipitor) 20 mg PO DAILY [facility] Last Admin: 05/20/17 08:32 Dose: 20 mg Dextrose (Dextrose 50% Inj) 0 ml IV STAT PRN; Protocol PRN Reason: Hypoglycemia Protocol Dextrose (Glutose 15) 0 gm PO ONCE PRN; Protocol PRN Reason: Hypoglycemia Protocol Digoxin (Lanoxin) 0.25 mg PO DAILY [facility] Last Admin: 05/20/17 08:30 Dose: 0.25 mg Famotidine (Pepcid) 20 mg PO Q12 [facility] Last Admin: 05/20/17 08:31 Dose: 20 mg Finasteride (Proscar) 5 mg PO DAILY [facility] Last Admin: 05/20/17 08:31 Dose: 5 mg Gabapentin (Neurontin) 300 mg PO [facility] Last Admin: 05/18/17 22:14 Dose: 300 mg Glucagon (Glucagen Diagnostic Kit) 0 mg IM STAT PRN; Protocol PRN Reason: Hypoglycemia Protocol Piperacillin Sod/Tazobactam (Sod 3.375 gm/ Sodium Chloride) 100 mls @ 100 mls/ hr IVPB Q6 [facility] PRN Reason: Protocol Last Admin: 05/20/17 09:17 Dose: 100 mls/hr Insulin Detemir (Levemir) 20 units SC [facility] Last Admin: 05/19/17 21:44 Dose: 20 u Levalbuterol HCl (Xopenex) 1.25 mg INH RQ8 PRN PRN Reason: Shortness of Breath Losartan Potassium (Cozaar) 25 mg PO DAILY [facility] Last Admin: 05/20/17 08:31 Dose: 25 mg Fluticasone/Salmeterol (Advair Diskus 500/50) 1 puff IH Q12 [facility] Last Admin: 05/18/17 21:44 Dose: 1 inhaler Tiotropium [place] (Spiriva) 18 mcg INH DAILY [facility] Last Admin: 05/20/17 10:34 Dose: 18 mcg - Labs Labs: 05/20/17 05:08 05/20/17 05:08 PT 17.6 Seconds (9.8-13.1) H D 05/20/17 05:08 INR 1.6 (0.9-1.2) H D 05/20/17 05:08 APTT 33.7 Seconds (25.6-37.1) D 05/20/17 05:08
--- NOTE | 2017-05-20 13:24 | CP.PCM.PN ---
Subjective - Date & Time of Evaluation Date of Evaluation: 05/20/17 Time of Evaluation: 08:30 - Subjective Subjective: 76M seen and examined at bedside with attending. Pt reports great improvement in breathing, denies any chest pain or palpitations and overall "feels better". Objective - Vital Signs/Intake and Output Vital Signs (last 24 hours): Temp Pulse Resp BP Pulse Ox 37.2 C 92 H 29 H 110/47 L 100 05/20/17 12:00 05/20/17 12:00 05/20/17 12:00 05/20/17 12:00 05/20/17 12:00 Intake and Output: 05/20/17 05/20/17 06:59 18:59 Intake Total 468 340 Output Total 580 Balance -112 340 - Medications Medications: Current Medications Atorvastatin Calcium (Lipitor) 20 mg PO DAILY [facility] Last Admin: 05/20/17 08:32 Dose: 20 mg Dextrose (Dextrose 50% Inj) 0 ml IV STAT PRN; Protocol PRN Reason: Hypoglycemia Protocol Dextrose (Glutose 15) 0 gm PO ONCE PRN; Protocol PRN Reason: Hypoglycemia Protocol Digoxin (Lanoxin) 0.25 mg PO DAILY [facility] Last Admin: 05/20/17 08:30 Dose: 0.25 mg Famotidine (Pepcid) 20 mg PO Q12 [facility] Last Admin: 05/20/17 08:31 Dose: 20 mg Finasteride (Proscar) 5 mg PO DAILY [facility] Last Admin: 05/20/17 08:31 Dose: 5 mg Gabapentin (Neurontin) 300 mg PO HS [facility] Last Admin: 05/18/17 22:14 Dose: 300 mg Glucagon (Glucagen Diagnostic Kit) 0 mg IM STAT PRN; Protocol PRN Reason: Hypoglycemia Protocol Piperacillin Sod/Tazobactam (Sod 3.375 gm/ Sodium Chloride) 100 mls @ 100 mls/ hr IVPB Q6 [facility] PRN Reason: Protocol Last Admin: 05/20/17 09:17 Dose: 100 mls/hr Insulin Detemir (Levemir) 20 units SC [facility] Last Admin: 05/19/17 21:44 Dose: 20 u Levalbuterol HCl (Xopenex) 1.25 mg INH RQ8 PRN PRN Reason: Shortness of Breath Losartan Potassium (Cozaar) 25 mg PO DAILY [facility] Last Admin: 05/20/17 08:31 Dose: 25 mg Fluticasone/Salmeterol (Advair Diskus 500/50) 1 puff IH Q12 [facility] Last Admin: 05/18/17 21:44 Dose: 1 inhaler Tiotropium [place] (Spiriva) 18 mcg INH DAILY [facility] Last Admin: 05/20/17 10:34 Dose: 18 mcg - Labs Labs: 05/20/17 05:08 05/20/17 05:08 PT 17.6 Seconds (9.8-13.1) H D 05/20/17 05:08 INR 1.6 (0.9-1.2) H D 05/20/17 05:08 APTT 33.7 Seconds (25.6-37.1) D 05/20/17 05:08 - Constitutional Appears: Non-toxic, No Acute Distress - Head Exam Head Exam: NORMAL INSPECTION - Eye Exam Eye Exam: EOMI, Normal appearance - ENT Exam ENT Exam: Mucous Membranes Moist - Respiratory Exam Respiratory Exam: Rhonchi (especially at LEFT base), NORMAL BREATHING PATTERN ( Hi-Flow in place at 35%) - Cardiovascular Exam Cardiovascular Exam: Irregular Rhythm - GI/Abdominal Exam GI & Abdominal Exam: Soft, Normal Bowel Sounds - Extremities Exam Extremities Exam: Normal Capillary Refill, Normal Inspection - Neurological Exam Neurological Exam: Alert, Awake, Oriented x3 - Psychiatric Exam Psychiatric exam: Normal Affect, Normal Mood - Skin Skin Exam: Dry, Warm Assessment and Plan (1) Sepsis due to pneumonia Assessment & Plan: Sepsis has resolved, patient continues on Zosyn for pneumonia with resolving leukocytosis. - Hi-Flow - Zosyn - CXR - Oxygen Status: Acute (2) Elevated troponin I level Assessment & Plan: Troponins trending down, Dr Last managing, no chest pain. - Cardiology consult - Trend INR - Coumadin as per cardiology - Oxygen Status: Acute (3) DVT prophylaxis Assessment & Plan: Patiet on Coumadin and SCDs. Status: Acute (4) Atrial fibrillation Assessment & Plan: Asymptomatic, rate-controlled. Digoxin level wnl. - Cardiology consult: f/u recs - c/w medication - anticoagulation with coumadin - trend INR Status: Chronic (5) Type 2 diabetes mellitus Assessment & Plan: Asymptomatic, controlled. - c/w medication - Accu-checks Status: Chronic
[2017-05-20] MEDS: Insulin Detemir 100 Units/ml Inj SC SCH (22:15)
[2017-05-21] MEDS: Piperacillin/Tazobact 3.375 GM in Sodium Chloride 0.9% 100 ML IVPB SCH ×4 (05:08→21:50)
[2017-05-21 06:12] LABS: BASO # 0.1 K/uL (0.0-0.2); BASO % 0.7 % (0.0-2.0); EOS # 0.3 K/uL (0.0-0.7); EOS % 2.4 % (0.0-4.0); LYMPH # 1.5 K/uL (1.0-4.3); LYMPH % 12.2 % (20.0-40.0); MEAN CELL VOLUME 92.6 fl (80.0-94.0); MEAN CORPUSCULAR HEMOGLOBIN 31.3 pg (27.0-31.0); MEAN CORPUSCULAR HGB CONC 33.8 g/dL (33.0-37.0); MEAN PLATELET VOLUME 7.7 fl (7.2-11.7); MONO # 0.9 K/uL (0.0-0.8); NEUT # 9.7 K/uL (1.8-7.0); NEUT % 77.7 % (50.0-75.0); RBC 4.15 Mil/uL (4.40-5.90); RED CELL DISTRIBUTION WIDTH 13.1 % (11.5-14.5); WHITE BLOOD COUNT 12.5 K/uL (4.8-10.8)
[2017-05-21 06:21] LABS: INR 1.4 (0.9-1.2); PROTHROMBIN TIME 15.9 Seconds (9.8-13.1)
[2017-05-21 06:25] LABS: BLOOD UREA NITROGEN 24 mg/dl (9-20); CALCIUM 8.9 mg/dL (8.4-10.2); GFR AFRICAN-AMERICAN > 60; GFR NON-AFRICAN AMERICAN > 60
--- NOTE | 2017-05-21 08:13 | CP.PCM.PN ---
Subjective - Date & Time of Evaluation Date of Evaluation: 05/21/17 Time of Evaluation: 09:05 - Subjective Subjective: Pt seen and evaluated at bedside this am. Sitting up comfortably in bed, on nasal canula. No acute events overnight, reports feeling better/stronger. Tolerating PO intake. Objective - Vital Signs/Intake and Output Vital Signs (last 24 hours): Temp Pulse Resp BP Pulse Ox 98.2 F 69 15 125/61 99 05/21/17 04:00 05/21/17 04:00 05/21/17 04:00 05/21/17 04:00 05/21/17 04:00 Intake and Output: 05/21/17 05/21/17 06:59 18:59 Intake Total 100 Balance 100 - Medications Medications: Current Medications Atorvastatin Calcium (Lipitor) 20 mg PO DAILY [facility] Last Admin: 05/20/17 08:32 Dose: 20 mg Dextrose (Dextrose 50% Inj) 0 ml IV STAT PRN; Protocol PRN Reason: Hypoglycemia Protocol Dextrose (Glutose 15) 0 gm PO ONCE PRN; Protocol PRN Reason: Hypoglycemia Protocol Digoxin (Lanoxin) 0.25 mg PO DAILY [facility] Last Admin: 05/20/17 08:30 Dose: 0.25 mg Famotidine (Pepcid) 20 mg PO Q12 [facility] Last Admin: 05/20/17 22:18 Dose: 20 mg Finasteride (Proscar) 5 mg PO DAILY [facility] Last Admin: 05/20/17 08:31 Dose: 5 mg Gabapentin (Neurontin) 300 mg PO HS [facility] Last Admin: 05/18/17 22:14 Dose: 300 mg Glucagon (Glucagen Diagnostic Kit) 0 mg IM STAT PRN; Protocol PRN Reason: Hypoglycemia Protocol Piperacillin Sod/Tazobactam (Sod 3.375 gm/ Sodium Chloride) 100 mls @ 100 mls/ hr IVPB Q6 [facility] PRN Reason: Protocol Last Admin: 05/21/17 05:08 Dose: 100 mls/hr Insulin Detemir (Levemir) 12 units SC HS [facility] Last Admin: 05/20/17 22:15 Dose: 12 units Levalbuterol HCl (Xopenex) 1.25 mg INH RQ8 PRN PRN Reason: Shortness of Breath Losartan Potassium (Cozaar) 25 mg PO DAILY [facility] Last Admin: 05/20/17 08:31 Dose: 25 mg Fluticasone/Salmeterol (Advair Diskus 500/50) 1 puff IH Q12 [facility] Last Admin: 05/18/17 21:44 Dose: 1 inhaler Tiotropium [place] (Spiriva) 18 mcg INH DAILY [facility] Last Admin: 05/20/17 10:34 Dose: 18 mcg - Labs Labs: 05/21/17 04:56 05/21/17 04:56 PT 15.9 Seconds (9.8-13.1) H 05/21/17 04:56 INR 1.4 (0.9-1.2) H 05/21/17 04:56 APTT 33.7 Seconds (25.6-37.1) D 05/20/17 05:08 - Constitutional Appears: Non-toxic, No Acute Distress - Eye Exam Eye Exam: Normal appearance - ENT Exam ENT Exam: Mucous Membranes Moist - Respiratory Exam Respiratory Exam: Decreased Breath Sounds, NORMAL BREATHING PATTERN. absent: Wheezes - Cardiovascular Exam Cardiovascular Exam: Irregular Rhythm - GI/Abdominal Exam GI & Abdominal Exam: Soft, Normal Bowel Sounds. absent: Distended, Tenderness, Rebound - Extremities Exam Extremities Exam: Normal Capillary Refill. absent: Pedal Edema, Tenderness - Back Exam Back Exam: NORMAL INSPECTION - Neurological Exam Neurological Exam: Alert, Awake, Oriented x3 - Psychiatric Exam Psychiatric exam: Normal Mood - Skin Skin Exam: Dry, Intact, Normal Color, Warm Additional comments: less flushed face than on admission Assessment and Plan - Assessment and Plan (Free Text) Assessment: 76 yo M with PMH COPD, pneumonia, HLD, HTN, diabetes mellitus admitted due to sepsis secondary to pneumona and NSTEMI. Clinically improving. Plan: # Sepsis, likely due to pneumonia Resolving. Likely secondary to pneumonia seen on chest CT, failed outpatient treatment on zithromax. Elevated lactate on admission, leukocytosis 20 on admission; currently WBC 12.5. S/p fluid resuscitation, levaquin and rocephin in ED. Pulmonology consulted, Dr. Hameed. - Zosyn IVPB Q6, Day 4 - CBC, BMP in am # COPD - Pulmonology consult- Dr. Hameed; consult appreciated - Pending sputum culture, strep, mycoplasma, legionella - Continue with medications/recommendations as per pulmonary - Nasal canula 3L # NSTEMI Cardiology consult- Dr. Last. Rise in troponins, suspected to be secondary possible anterolateral subendocardial injury as read on EKG. No indication for code heart at this time. Troponins have trended down after reaching peak. # A fib RVR resolved; pt is rate controlled. - C/w digoxin home dose - Digoxin level 1.5 # Diabetes Mellitus - c/w home dose insulin levemir - c/w prandin home dose - hypoglycemia protocol # HTN - Normotensive - Restart home meds - Monitor for changes # HLD - C/w home meds atorvastatin 40mg # DVT prophylaxis - Pt was on coumadin, INR on admission 3.7 on admission; coumadin was held for two days, then restarted - Coumadin restarted by cardiology, INR 1.4; monitor INR - Heparin 5000U SC Q12 until INR therapeutic
--- NOTE | 2017-05-21 08:38 | CP.PCM.PN ---
Subjective - Date & Time of Evaluation Date of Evaluation: 05/21/17 Time of Evaluation: 08:20 - Subjective Subjective: Comfortable while propped up in bed Breathes comfortably, can carry on conversation while on HF O2 supplement O2 sat at 96-97 while at rest A Fib at 70-80 BPM ( during sleep as low as 40s) BP 140/70 mm Hg No signs of HF Awaits bed out of ICU Spent a lot of time in chair yesterday Will need PT while O2 SAT is monitored INR 1.4 (Wafarin ordered) K+ replacement ordered Troponin elevation at admission represents consequence of tchycaria due to fever/sepsis (not RI) Objective - Vital Signs/Intake and Output Vital Signs (last 24 hours): Temp Pulse Resp BP Pulse Ox 98.2 F 69 15 125/61 99 05/21/17 04:00 05/21/17 04:00 05/21/17 04:00 05/21/17 04:00 05/21/17 04:00 Intake and Output: 05/21/17 05/21/17 06:59 18:59 Intake Total 100 Balance 100 - Medications Medications: Current Medications Atorvastatin Calcium (Lipitor) 20 mg PO DAILY [facility] Last Admin: 05/20/17 08:32 Dose: 20 mg Dextrose (Dextrose 50% Inj) 0 ml IV STAT PRN; Protocol PRN Reason: Hypoglycemia Protocol Dextrose (Glutose 15) 0 gm PO ONCE PRN; Protocol PRN Reason: Hypoglycemia Protocol Digoxin (Lanoxin) 0.25 mg PO DAILY [facility] Last Admin: 05/20/17 08:30 Dose: 0.25 mg Famotidine (Pepcid) 20 mg PO Q12 [facility] Last Admin: 05/20/17 22:18 Dose: 20 mg Finasteride (Proscar) 5 mg PO DAILY [facility] Last Admin: 05/20/17 08:31 Dose: 5 mg Gabapentin (Neurontin) 300 mg PO HS [facility] Last Admin: 05/18/17 22:14 Dose: 300 mg Glucagon (Glucagen Diagnostic Kit) 0 mg IM STAT PRN; Protocol PRN Reason: Hypoglycemia Protocol Piperacillin Sod/Tazobactam (Sod 3.375 gm/ Sodium Chloride) 100 mls @ 100 mls/ hr IVPB Q6 [facility] PRN Reason: Protocol Last Admin: 05/21/17 05:08 Dose: 100 mls/hr Insulin Detemir (Levemir) 12 units SC HS [facility] Last Admin: 05/20/17 22:15 Dose: 12 units Levalbuterol HCl (Xopenex) 1.25 mg INH RQ8 PRN PRN Reason: Shortness of Breath Losartan Potassium (Cozaar) 25 mg PO DAILY [facility] Last Admin: 05/20/17 08:31 Dose: 25 mg Fluticasone/Salmeterol (Advair Diskus 500/50) 1 puff IH Q12 [facility] Last Admin: 05/18/17 21:44 Dose: 1 inhaler Tiotropium [place] (Spiriva) 18 mcg INH DAILY [facility] Last Admin: 05/20/17 10:34 Dose: 18 mcg Warfarin Sodium (Coumadin) 5 mg PO QD5 [facility] PRN Reason: Protocol Stop: 05/21/17 17:01 - Labs Labs: 05/21/17 04:56 05/21/17 04:56 PT 15.9 Seconds (9.8-13.1) H 05/21/17 04:56 INR 1.4 (0.9-1.2) H 05/21/17 04:56 APTT 33.7 Seconds (25.6-37.1) D 05/20/17 05:08
[2017-05-21] MEDS: Digoxin 250 mcg (0.25 mg) Tab PO SCH (08:49)
[2017-05-21 08:50] VITALS: PULSE 80
[2017-05-21] MEDS: Tiotropium 18 mcg Cap For Inhalation INH SCH (08:59)
--- NOTE | 2017-05-21 10:26 | RAD ---
PROCEDURE: CHEST RADIOGRAPH, 1 VIEW HISTORY: pneumonia COMPARISON: Yesterday FINDINGS: LUNGS: Chronic hyperinflation and interstitial changes are appreciated. There is once again asymmetric interstitial density and/or infiltrate seen at the left lung base. This may be minimally improved from the prior study. No new infiltrate is seen elsewhere. Mild linear scarring is also noted in the right upper lobe and left upper lobe. No CHF is seen. PLEURA: No pneumothorax or pleural fluid seen. CARDIOVASCULAR: Unchanged. OSSEOUS STRUCTURES: No significant abnormalities. VISUALIZED UPPER ABDOMEN: Normal. OTHER FINDINGS: None. IMPRESSION: Mild interval improvement in aeration at the left lung base.
[2017-05-21] MEDS: Insulin Detemir 100 Units/ml Inj SC SCH (21:54)
[2017-05-22] MEDS: Piperacillin/Tazobact 3.375 GM in Sodium Chloride 0.9% 100 ML IVPB SCH ×4 (04:32→21:55)
[2017-05-22 06:12] LABS: BASO # 0.1 K/uL (0.0-0.2); BASO % 0.8 % (0.0-2.0); EOS # 0.3 K/uL (0.0-0.7); EOS % 3.3 % (0.0-4.0); HEMOGLOBIN 12.8 g/dL (12.0-18.0); LYMPH # 1.4 K/uL (1.0-4.3); LYMPH % 18.7 % (20.0-40.0); MEAN CELL VOLUME 92.6 fl (80.0-94.0); MEAN CORPUSCULAR HEMOGLOBIN 32.1 pg (27.0-31.0); MEAN CORPUSCULAR HGB CONC 34.7 g/dL (33.0-37.0); MEAN PLATELET VOLUME 7.4 fl (7.2-11.7); MONO # 0.7 K/uL (0.0-0.8); MONO % 9.2 % (0.0-10.0); NEUT # 5.2 K/uL (1.8-7.0); NRBC % 0.1 % (0.0-0.0); RBC 3.99 Mil/uL (4.40-5.90); RED CELL DISTRIBUTION WIDTH 12.8 % (11.5-14.5); WHITE BLOOD COUNT 7.7 K/uL (4.8-10.8)
[2017-05-22 06:17] LABS: BLOOD UREA NITROGEN 23 mg/dl (9-20); CALCIUM 8.9 mg/dL (8.4-10.2); GFR AFRICAN-AMERICAN > 60; GFR NON-AFRICAN AMERICAN > 60
[2017-05-22 06:55] LABS: INR 1.7 (0.9-1.2); PROTHROMBIN TIME 19.4 Seconds (9.8-13.1)
--- NOTE | 2017-05-22 08:45 | CP.PCM.PN ---
Subjective - Date & Time of Evaluation Date of Evaluation: 05/22/17 Time of Evaluation: 08:15 - Subjective Subjective: Has been well over last 24 hrs Out of ICU on telemetry floor Pt has occ pauses > 1.5 sec and HR as low as 41BPM while awake Will withold Dig for a day then resume at a lower dose. Pulse Ox stable off of HFNC O2 supplement BP 136/70 mm Hg No signs of CHF Leucocytosis has resolved /Nutrophil count back to normal INR 1.7 (Warfarin ordered ) Should be considered for PT/Rehab if Pulm status is stable Objective - Vital Signs/Intake and Output Vital Signs (last 24 hours): Temp Pulse Resp BP Pulse Ox 97.5 F L 73 20 149/77 98 05/22/17 08:00 05/22/17 08:00 05/22/17 08:00 05/22/17 08:00 05/22/17 08:00 - Medications Medications: Current Medications Atorvastatin Calcium (Lipitor) 20 mg PO DAILY [facility] Last Admin: 05/21/17 08:49 Dose: 20 mg Dextrose (Dextrose 50% Inj) 0 ml IV STAT PRN; Protocol PRN Reason: Hypoglycemia Protocol Dextrose (Glutose 15) 0 gm PO ONCE PRN; Protocol PRN Reason: Hypoglycemia Protocol Digoxin (Lanoxin) 0.25 mg PO DAILY [facility] Last Admin: 05/21/17 08:49 Dose: 0.25 mg Famotidine (Pepcid) 20 mg PO Q12 [facility] Last Admin: 05/21/17 21:50 Dose: 20 mg Finasteride (Proscar) 5 mg PO DAILY [facility] Last Admin: 05/21/17 08:50 Dose: 5 mg Gabapentin (Neurontin) 300 mg PO HS [facility] Last Admin: 05/18/17 22:14 Dose: 300 mg Glucagon (Glucagen Diagnostic Kit) 0 mg IM STAT PRN; Protocol PRN Reason: Hypoglycemia Protocol Heparin Sodium (Porcine) (Heparin) 5,000 units SC Q8 [facility] PRN Reason: Protocol Last Admin: 05/22/17 01:28 Dose: 5,000 units Piperacillin Sod/Tazobactam (Sod 3.375 gm/ Sodium Chloride) 100 mls @ 100 mls/ hr IVPB Q6 [facility] PRN Reason: Protocol Last Admin: 05/22/17 04:32 Dose: 100 mls/hr Insulin Detemir (Levemir) 12 units SC HS [facility] Last Admin: 05/21/17 21:54 Dose: 12 units Levalbuterol HCl (Xopenex) 1.25 mg INH RQ8 PRN PRN Reason: Shortness of Breath Losartan Potassium (Cozaar) 25 mg PO DAILY [facility] Last Admin: 05/21/17 08:49 Dose: 25 mg Fluticasone/Salmeterol (Advair Diskus 500/50) 1 puff IH Q12 [facility] Last Admin: 05/18/17 21:44 Dose: 1 inhaler Tiotropium [place] (Spiriva) 18 mcg INH DAILY [facility] Last Admin: 05/21/17 08:59 Dose: 18 mcg Warfarin Sodium (Coumadin) 5 mg PO QD5 [facility] PRN Reason: Protocol Stop: 05/22/17 17:01 - Labs Labs: 05/22/17 05:50 05/22/17 05:50 PT 19.4 Seconds (9.8-13.1) H 05/22/17 05:50 INR 1.7 (0.9-1.2) H 05/22/17 05:50 APTT 33.7 Seconds (25.6-37.1) D 05/20/17 05:08
[2017-05-22] MEDS: Tiotropium 18 mcg Cap For Inhalation INH SCH (09:13)
--- NOTE | 2017-05-22 10:08 | CP.PCM.PN ---
Subjective - Date & Time of Evaluation Date of Evaluation: 05/22/17 Time of Evaluation: 10:02 - Subjective Subjective: Discusse with cardiology this morning. Transfered out of ICU to telemetry. Vital signs remain stable, afebrile. Leukocytosis has resolved nicely. CXR showing gradual resolution of the lingular infiltrate. Sputums have been sent for cytology x 3, reports pending. Cough is congested, poor ability to expectorate. Hyper-resonant percussion bilaterally. Markedly diminished breath sounds bilaterally. Few lower lobe rhonchi bilaterally. Occasional medium rales in left lung. No audible wheezing or bronchial breathing. Has responded well to current regimen. Today is day # 5 of antibiotic therapy. Continue sema regimen and complete 10 days of rx. Sputum cytologies are pending. After discharge he will be referred back to [facility] for followup. A repeat CT chest will likely be done there. Objective - Vital Signs/Intake and Output Vital Signs (last 24 hours): Temp Pulse Resp BP Pulse Ox 97.5 F L 73 20 149/77 98 05/22/17 08:00 05/22/17 09:14 05/22/17 08:00 05/22/17 09:14 05/22/17 08:00 - Medications Medications: Current Medications Atorvastatin Calcium (Lipitor) 20 mg PO DAILY [facility] Last Admin: 05/22/17 09:13 Dose: 20 mg Dextrose (Dextrose 50% Inj) 0 ml IV STAT PRN; Protocol PRN Reason: Hypoglycemia Protocol Dextrose (Glutose 15) 0 gm PO ONCE PRN; Protocol PRN Reason: Hypoglycemia Protocol Famotidine (Pepcid) 20 mg PO Q12 [facility] Last Admin: 05/22/17 09:13 Dose: 20 mg Finasteride (Proscar) 5 mg PO DAILY [facility] Last Admin: 05/22/17 09:14 Dose: 5 mg Gabapentin (Neurontin) 300 mg PO HS [facility] Last Admin: 05/18/17 22:14 Dose: 300 mg Glucagon (Glucagen Diagnostic Kit) 0 mg IM STAT PRN; Protocol PRN Reason: Hypoglycemia Protocol Heparin Sodium (Porcine) (Heparin) 5,000 units SC Q8 [facility] PRN Reason: Protocol Last Admin: 05/22/17 09:11 Dose: 5,000 units Piperacillin Sod/Tazobactam (Sod 3.375 gm/ Sodium Chloride) 100 mls @ 100 mls/ hr IVPB Q6 [facility] PRN Reason: Protocol Last Admin: 05/22/17 09:10 Dose: 100 mls/hr Insulin Detemir (Levemir) 12 units SC HS [facility] Last Admin: 05/21/17 21:54 Dose: 12 units Levalbuterol HCl (Xopenex) 1.25 mg INH RQ8 PRN PRN Reason: Shortness of Breath Losartan Potassium (Cozaar) 25 mg PO DAILY [facility] Last Admin: 05/22/17 09:14 Dose: 25 mg Fluticasone/Salmeterol (Advair Diskus 500/50) 1 puff IH Q12 [facility] Last Admin: 05/18/17 21:44 Dose: 1 inhaler Tiotropium [place] (Spiriva) 18 mcg INH DAILY [facility] Last Admin: 05/22/17 09:13 Dose: 18 mcg Warfarin Sodium (Coumadin) 5 mg PO QD5 [facility] PRN Reason: Protocol Stop: 05/22/17 17:01 - Labs Labs: 05/22/17 05:50 05/22/17 05:50 PT 19.4 Seconds (9.8-13.1) H 05/22/17 05:50 INR 1.7 (0.9-1.2) H 05/22/17 05:50 APTT 33.7 Seconds (25.6-37.1) D 05/20/17 05:08 Assessment and Plan (1) Myocardial infarction Status: Acute (2) Fever Status: Acute (3) Leukocytosis Status: Acute (4) Lactic acidosis Status: Acute (5) Pulmonary emphysema Status: Chronic (6) Pulmonary nodules/lesions, multiple Status: Chronic (7) Atrial fibrillation Status: Chronic (8) Type 2 diabetes mellitus Status: Chronic
--- NOTE | 2017-05-22 11:27 | CP.PCM.PN ---
Subjective - Date & Time of Evaluation Date of Evaluation: 05/22/17 Time of Evaluation: 13:00 - Subjective Subjective: Pt was seen and evaluated at bedside today; reports feeling better/stronger. Was visited by his PMD, which put him in good spirits. Pt states he occasionally has some shortness of breath, but overall states he feels much better than when he came in. Objective - Vital Signs/Intake and Output Vital Signs (last 24 hours): Temp Pulse Resp BP Pulse Ox 97.5 F L 73 20 149/77 98 05/22/17 08:00 05/22/17 09:14 05/22/17 08:00 05/22/17 09:14 05/22/17 08:00 - Medications Medications: Current Medications Atorvastatin Calcium (Lipitor) 20 mg PO DAILY [facility] Last Admin: 05/22/17 09:13 Dose: 20 mg Dextrose (Dextrose 50% Inj) 0 ml IV STAT PRN; Protocol PRN Reason: Hypoglycemia Protocol Dextrose (Glutose 15) 0 gm PO ONCE PRN; Protocol PRN Reason: Hypoglycemia Protocol Famotidine (Pepcid) 20 mg PO Q12 [facility] Last Admin: 05/22/17 09:13 Dose: 20 mg Finasteride (Proscar) 5 mg PO DAILY [facility] Last Admin: 05/22/17 09:14 Dose: 5 mg Gabapentin (Neurontin) 300 mg PO HS [facility] Last Admin: 05/18/17 22:14 Dose: 300 mg Glucagon (Glucagen Diagnostic Kit) 0 mg IM STAT PRN; Protocol PRN Reason: Hypoglycemia Protocol Heparin Sodium (Porcine) (Heparin) 5,000 units SC Q8 [facility] PRN Reason: Protocol Last Admin: 05/22/17 09:11 Dose: 5,000 units Piperacillin Sod/Tazobactam (Sod 3.375 gm/ Sodium Chloride) 100 mls @ 100 mls/ hr IVPB Q6 [facility] PRN Reason: Protocol Last Admin: 05/22/17 09:10 Dose: 100 mls/hr Insulin Detemir (Levemir) 10 units SC HS [facility] Levalbuterol HCl (Xopenex) 1.25 mg INH RQ8 PRN PRN Reason: Shortness of Breath Losartan Potassium (Cozaar) 25 mg PO DAILY [facility] Last Admin: 05/22/17 09:14 Dose: 25 mg Fluticasone/Salmeterol (Advair Diskus 500/50) 1 puff IH Q12 [facility] Last Admin: 05/18/17 21:44 Dose: 1 inhaler Tiotropium [place] (Spiriva) 18 mcg INH DAILY [facility] Last Admin: 05/22/17 09:13 Dose: 18 mcg Warfarin Sodium (Coumadin) 5 mg PO QD5 [facility] PRN Reason: Protocol Stop: 05/22/17 17:01 - Labs Labs: 05/22/17 05:50 05/22/17 05:50 PT 19.4 Seconds (9.8-13.1) H 05/22/17 05:50 INR 1.7 (0.9-1.2) H 05/22/17 05:50 APTT 33.7 Seconds (25.6-37.1) D 05/20/17 05:08 - Constitutional Appears: No Acute Distress - Eye Exam Eye Exam: Normal appearance - ENT Exam ENT Exam: Mucous Membranes Moist - Respiratory Exam Respiratory Exam: Decreased Breath Sounds, NORMAL BREATHING PATTERN. absent: Rales, Respiratory Distress - Cardiovascular Exam Cardiovascular Exam: Irregular Rhythm - GI/Abdominal Exam GI & Abdominal Exam: Soft, Normal Bowel Sounds - Extremities Exam Extremities Exam: absent: Calf Tenderness, Pedal Edema - Back Exam Back Exam: NORMAL INSPECTION - Neurological Exam Neurological Exam: Alert, Awake, Oriented x3 - Psychiatric Exam Psychiatric exam: Normal Affect - Skin Skin Exam: Dry, Intact, Normal Color, Warm Assessment and Plan - Assessment and Plan (Free Text) Assessment: 76 yo M with PMH COPD, pneumonia, HLD, HTN, diabetes mellitus admitted due to sepsis secondary to pneumona and NSTEMI. Clinically improving. Plan: # Pneumonia Septic on admission, likely secondary to pneumonia seen on chest CT, failed outpatient treatment on zithromax. Elevated lactate on admission, leukocytosis 20 on admission; currently WBC 7.7. S/p fluid resuscitation, levaquin and rocephin in ED. No longer septic. Pulmonology consulted, Dr. Hameed. - Zosyn IVPB Q6, Day 5 - Monitor CBC, BMP in am # COPD - Pulmonology consult- Dr. Hameed; consult appreciated - Sputum culture x3, strep, mycoplasma, legionella - Continue with medications/recommendations as per pulmonary - Nasal canula 3L # A fib RVR resolved; pt is rate controlled. - Digoxin level was 1.5; digoxin held today as per Dr. Last - Coumadin restarted at home dose 5mg - Continue with medications/recommendations as per cardiology # Diabetes Mellitus - Levemir 10 mg HS - hypoglycemia protocol # HTN - Restart home meds - Monitor for changes # HLD - Home med atorvastatin 40mg # DVT prophylaxis - Pt was on coumadin, INR on admission 3.7 on admission; coumadin was held for two days, then restarted - Coumadin restarted by cardiology, INR 1.7; monitor INR - Heparin 5000U SC [id number] INR therapeutic
--- NOTE | 2017-05-22 12:50 | RAD ---
PROCEDURE: CHEST RADIOGRAPH, 1 VIEW HISTORY: pneumonia COMPARISON: Comparison made with the chest radiograph 05/21/[address] scan chest 05/18/2017. FINDINGS: LUNGS: Lungs are hyperinflated. Emphysematous changes less well seen on this study compared to high-resolution CT scan. Re- demonstrated are atelectasis and/or infiltrate in the left lower lung field (lingular region and left posterior sulcus). Spiculated mass lesion left upper lobe is poorly seen on this study as compared to high-resolution CT scan of the chest PLEURA: No pneumothorax or pleural fluid seen. CARDIOVASCULAR: Normal. OSSEOUS STRUCTURES: No significant abnormalities. VISUALIZED UPPER ABDOMEN: Normal. OTHER FINDINGS: None. IMPRESSION: Lungs are hyperinflated. Emphysematous changes less well seen on this study compared to high-resolution CT scan. Re- demonstrated are atelectasis and/or infiltrate in the left lower lung field (lingular region and left posterior sulcus). Spiculated mass lesion left upper lobe is poorly seen on this study as compared to high-resolution CT scan of the chest
[2017-05-22] MEDS: Petrolatum UD PAK TOP SCH (16:44)
[2017-05-22] MEDS: Fluticasone-Salmeterol 500-50mcg Diskus IH SCH (21:49)
[2017-05-22] MEDS ORDERED: Insulin Detemir 100 Units/ml Inj SC SCH (22:00)
[2017-05-23] MEDS: Piperacillin/Tazobact 3.375 GM in Sodium Chloride 0.9% 100 ML IVPB SCH ×3 (04:59→16:00)
[2017-05-23 05:55] LABS: HEMOGLOBIN 12.5 g/dL (12.0-18.0); MEAN CELL VOLUME 92.5 fl (80.0-94.0); MEAN CORPUSCULAR HEMOGLOBIN 32.3 pg (27.0-31.0); RBC 3.88 Mil/uL (4.40-5.90); RED CELL DISTRIBUTION WIDTH 12.9 % (11.5-14.5); WHITE BLOOD COUNT 8.4 K/uL (4.8-10.8)
[2017-05-23 06:04] LABS: BLOOD UREA NITROGEN 21 mg/dl (9-20); CALCIUM 9.2 mg/dL (8.4-10.2); GFR AFRICAN-AMERICAN > 60; GFR NON-AFRICAN AMERICAN > 60
[2017-05-23 06:05] LABS: INR 2.3 (0.9-1.2); PROTHROMBIN TIME 25.5 Seconds (9.8-13.1)
[2017-05-23 08:01] VITALS: RESP 18
--- NOTE | 2017-05-23 08:41 | CP.PCM.PN ---
<Rosanna Sorto - Last Filed: 05/23/17 08:58> Subjective - Date & Time of Evaluation Date of Evaluation: 05/23/17 Time of Evaluation: 08:10 - Subjective Subjective: Mr. Luke seen and evaluated at bedside; no acute events overnight. Was sitting in chair, watching news, wearing nasal canula. No chest pain, no abdominal pain, no leg/calf pain/swelling. Reports some shortness of breath on exertion. Objective - Vital Signs/Intake and Output Vital Signs (last 24 hours): Temp Pulse Resp BP Pulse Ox 97.4 F L 66 18 159/74 H 98 05/23/17 08:01 05/23/17 08:01 05/23/17 08:01 05/23/17 08:01 05/23/17 08:01 - Medications Medications: Current Medications Atorvastatin Calcium (Lipitor) 20 mg PO DAILY [facility] Last Admin: 05/22/17 09:13 Dose: 20 mg Dextrose (Dextrose 50% Inj) 0 ml IV STAT PRN; Protocol PRN Reason: Hypoglycemia Protocol Dextrose (Glutose 15) 0 gm PO ONCE PRN; Protocol PRN Reason: Hypoglycemia Protocol Emollient Ointment (Vaseline Oint) 1 pkt TOP TID [facility] Last Admin: 05/22/17 16:44 Dose: 1 pkt Famotidine (Pepcid) 20 mg PO Q12 [facility] Last Admin: 05/22/17 21:54 Dose: 20 mg Finasteride (Proscar) 5 mg PO DAILY [facility] Last Admin: 05/22/17 09:14 Dose: 5 mg Gabapentin (Neurontin) 300 mg PO HS [facility] Last Admin: 05/18/17 22:14 Dose: 300 mg Glucagon (Glucagen Diagnostic Kit) 0 mg IM STAT PRN; Protocol PRN Reason: Hypoglycemia Protocol Piperacillin Sod/Tazobactam (Sod 3.375 gm/ Sodium Chloride) 100 mls @ 100 mls/ hr IVPB Q6 [facility] PRN Reason: Protocol Last Admin: 05/23/17 04:59 Dose: 100 mls/hr Insulin Detemir (Levemir) 10 units SC [facility] Last Admin: 05/22/17 21:52 Dose: 10 u Levalbuterol HCl (Xopenex) 1.25 mg INH RQ8 PRN PRN Reason: Shortness of Breath Losartan Potassium (Cozaar) 25 mg PO DAILY [facility] Last Admin: 05/22/17 09:14 Dose: 25 mg Fluticasone/Salmeterol (Advair Diskus 500/50) 1 puff IH Q12 [facility] Last Admin: 05/22/17 21:49 Dose: 1 inhaler Tiotropium [place] (Spiriva) 18 mcg INH DAILY [facility] Last Admin: 05/22/17 09:13 Dose: 18 mcg Warfarin Sodium (Coumadin) 2.5 mg PO QD5 [facility] PRN Reason: Protocol Stop: 05/23/17 17:01 - Labs Labs: 05/23/17 04:20 05/23/17 04:20 PT 25.5 Seconds (9.8-13.1) H D 05/23/17 04:20 INR 2.3 (0.9-1.2) H D 05/23/17 04:20 APTT 33.7 Seconds (25.6-37.1) D 05/20/17 05:08 - Constitutional Appears: Non-toxic - Head Exam Head Exam: NORMAL INSPECTION - Eye Exam Eye Exam: Normal appearance - ENT Exam ENT Exam: Mucous Membranes Moist - Respiratory Exam Respiratory Exam: Decreased Breath Sounds, NORMAL BREATHING PATTERN. absent: Wheezes, Respiratory Distress - Cardiovascular Exam Cardiovascular Exam: Irregular Rhythm - GI/Abdominal Exam GI & Abdominal Exam: Soft, Normal Bowel Sounds - Extremities Exam Extremities Exam: absent: Calf Tenderness, Pedal Edema - Back Exam Back Exam: NORMAL INSPECTION - Neurological Exam Neurological Exam: Alert, Awake, Oriented x3 - Psychiatric Exam Psychiatric exam: Normal Mood - Skin Skin Exam: Dry, Normal Color, Warm Assessment and Plan - Assessment and Plan (Free Text) Assessment: 76 yo M with PMH COPD, pneumonia, HLD, HTN, diabetes mellitus admitted due to sepsis secondary to pneumona and NSTEMI. Clinically improving. Plan: # Pneumonia Septic on admission, likely secondary to pneumonia seen on chest CT, failed outpatient treatment on zithromax. Elevated lactate on admission, leukocytosis 20 on admission; currently WBC 7.7. S/p fluid resuscitation, levaquin and rocephin in ED. No longer septic. Pulmonology consulted, Dr. Hameed. - Zosyn IVPB Q6, Day 6 - Monitor CBC, BMP in am # COPD - Pulmonology consult- Dr. Hameed; consult appreciated - Sputum culture x3, strep, mycoplasma, legionella - Continue with medications/recommendations as per pulmonary - Nasal canula 3L # A fib RVR resolved; pt is rate controlled. - Digoxin level was 1.5; digoxin held yesterday as per Dr. Last - Coumadin restarted at home dose 5mg - Continue with medications/recommendations as per cardiology # Diabetes Mellitus - Levemir 10 mg HS - hypoglycemia protocol # HTN - Restart home meds - Monitor for changes # HLD - Home med atorvastatin 40mg # DVT prophylaxis - Pt was on coumadin, INR on admission 3.7 on admission; coumadin was held for two days, then restarted - Coumadin restarted by cardiology, INR 2.3 <Kathy Blackman - Last Filed: 05/23/17 15:36> Objective - Vital Signs/Intake and Output Vital Signs (last 24 hours): Temp Pulse Resp BP Pulse Ox 98.0 F 59 L 18 157/66 H 98 05/23/17 12:00 05/23/17 12:00 05/23/17 12:00 05/23/17 12:00 05/23/17 12:00 - Medications Medications: Current Medications Atorvastatin Calcium (Lipitor) 40 mg PO DAILY [facility] Dextrose (Dextrose 50% Inj) 0 ml IV STAT PRN; Protocol PRN Reason: Hypoglycemia Protocol Dextrose (Glutose 15) 0 gm PO ONCE PRN; Protocol PRN Reason: Hypoglycemia Protocol Emollient Ointment (Vaseline Oint) 1 pkt TOP TID [facility] Last Admin: 05/23/17 12:59 Dose: Not Given Finasteride (Proscar) 5 mg PO DAILY [facility] Last Admin: 05/23/17 09:03 Dose: 5 mg Gabapentin (Neurontin) 300 mg PO [facility] Last Admin: 05/18/17 22:14 Dose: 300 mg Glucagon (Glucagen Diagnostic Kit) 0 mg IM STAT PRN; Protocol PRN Reason: Hypoglycemia Protocol Piperacillin Sod/Tazobactam (Sod 3.375 gm/ Sodium Chloride) 100 mls @ 100 mls/ hr IVPB Q6 [facility] PRN Reason: Protocol Last Admin: 05/23/17 09:05 Dose: 100 mls/hr Insulin Detemir (Levemir) 10 units SC [facility] Last Admin: 05/22/17 21:52 Dose: 10 u Insulin Human Lispro (Humalog) 0 units SC [facility] PRN Reason: Protocol Levalbuterol HCl (Xopenex) 1.25 mg INH RQ8 PRN PRN Reason: Shortness of Breath Losartan Potassium (Cozaar) 25 mg PO DAILY [facility] Last Admin: 05/23/17 09:02 Dose: 25 mg Fluticasone/Salmeterol (Advair Diskus 500/50) 1 puff IH Q12 [facility] Last Admin: 05/23/17 09:01 Dose: 1 inhaler Tiotropium [place] (Spiriva) 18 mcg INH DAILY [facility] Last Admin: 05/23/17 09:04 Dose: 18 mcg Warfarin Sodium (Coumadin) 2.5 mg PO QD5 [facility] PRN Reason: Protocol Stop: 05/23/17 17:01 - Labs Labs: 05/23/17 04:20 05/23/17 04:20 PT 25.5 Seconds (9.8-13.1) H D 05/23/17 04:20 INR 2.3 (0.9-1.2) H D 05/23/17 04:20 APTT 33.7 Seconds (25.6-37.1) D 05/20/17 05:08 Assessment and Plan - Assessment and Plan (Free Text) Plan: Pt is on day of Zosyn In regards to COPD- pt O2 saturation drops to <88 during PT when on room air and requires supplemental oxygen via NC
[2017-05-23] MEDS: Fluticasone-Salmeterol 500-50mcg Diskus IH SCH (09:01)
[2017-05-23] MEDS: Petrolatum UD PAK TOP SCH ×2 (09:04→12:59)
[2017-05-23] MEDS: Tiotropium 18 mcg Cap For Inhalation INH SCH (09:04)
--- NOTE | 2017-05-23 09:51 | RAD ---
PROCEDURE: CHEST RADIOGRAPH, 1 VIEW HISTORY: pneumonia COMPARISON: Frontal chest radiograph 05/22/2017. FINDINGS: LUNGS: Left basilar airspace disease persists with none noted at the right. Bilateral limited fibrotic changes are reiterated including at the left base and bilateral apices. PLEURA: No pneumothorax identified bilaterally. No right pleural effusion. Mild left pleural effusion not excluded once again. CARDIOVASCULAR: Normal. OSSEOUS STRUCTURES: No significant abnormalities. VISUALIZED UPPER ABDOMEN: Normal. OTHER FINDINGS: Prior chest CT 05/18/2017 demonstrates spiculated left upper lobe lesion not seen in the current study once again. IMPRESSION: Increased airspace disease left base with likely mid limited left pleural effusion evident. Biapical left basilar fibrotic changes reiterated. No right-sided infiltrate or pleural effusion.
--- NOTE | 2017-05-23 11:20 | CP.PCM.PN ---
Subjective - Date & Time of Evaluation Date of Evaluation: 05/23/17 Time of Evaluation: 11:20 - Subjective Subjective: Has done well with treatment of lingular pneumonia. Was admitted to telemetry with leukocytosis, lactic acidosis and pulmonary infiltrate. He was placd on antibiotic regimen with coverage for possible HCAP. There has been some blood admixed with his sputum and specimens have been sent to the lab for cytology. He has improved substantially and is being discharged to the transitional care unit to complete his antibiotic regimen. Objective - Vital Signs/Intake and Output Vital Signs (last 24 hours): Temp Pulse Resp BP Pulse Ox 97.4 F L 77 18 159/74 H 97 05/23/17 08:01 05/23/17 10:09 05/23/17 08:01 05/23/17 09:02 05/23/17 10:09 - Medications Medications: Current Medications Atorvastatin Calcium (Lipitor) 20 mg PO DAILY [facility] Last Admin: 05/23/17 09:02 Dose: 20 mg Dextrose (Dextrose 50% Inj) 0 ml IV STAT PRN; Protocol PRN Reason: Hypoglycemia Protocol Dextrose (Glutose 15) 0 gm PO ONCE PRN; Protocol PRN Reason: Hypoglycemia Protocol Emollient Ointment (Vaseline Oint) 1 pkt TOP TID [facility] Last Admin: 05/23/17 09:04 Dose: 1 pkt Finasteride (Proscar) 5 mg PO DAILY [facility] Last Admin: 05/23/17 09:03 Dose: 5 mg Gabapentin (Neurontin) 300 mg PO HS [facility] Last Admin: 05/18/17 22:14 Dose: 300 mg Glucagon (Glucagen Diagnostic Kit) 0 mg IM STAT PRN; Protocol PRN Reason: Hypoglycemia Protocol Piperacillin Sod/Tazobactam (Sod 3.375 gm/ Sodium Chloride) 100 mls @ 100 mls/ hr IVPB Q6 [facility] PRN Reason: Protocol Last Admin: 05/23/17 09:05 Dose: 100 mls/hr Insulin Detemir (Levemir) 10 units SC [facility] Last Admin: 05/22/17 21:52 Dose: 10 u Levalbuterol HCl (Xopenex) 1.25 mg INH RQ8 PRN PRN Reason: Shortness of Breath Losartan Potassium (Cozaar) 25 mg PO DAILY [facility] Last Admin: 05/23/17 09:02 Dose: 25 mg Fluticasone/Salmeterol (Advair Diskus 500/50) 1 puff IH Q12 [facility] Last Admin: 05/23/17 09:01 Dose: 1 inhaler Tiotropium [place] (Spiriva) 18 mcg INH DAILY [facility] Last Admin: 05/23/17 09:04 Dose: 18 mcg Warfarin Sodium (Coumadin) 2.5 mg PO QD5 [facility] PRN Reason: Protocol Stop: 05/23/17 17:01 - Labs Labs: 05/23/17 04:20 05/23/17 04:20 PT 25.5 Seconds (9.8-13.1) H D 05/23/17 04:20 INR 2.3 (0.9-1.2) H D 05/23/17 04:20 APTT 33.7 Seconds (25.6-37.1) D 05/20/17 05:08 Assessment and Plan (1) Pneumonia Status: Acute (2) Sepsis due to pneumonia Status: Resolved (3) Pulmonary emphysema Status: Chronic (4) Pulmonary nodules/lesions, multiple Status: Chronic (5) Atrial fibrillation Status: Chronic (6) Type 2 diabetes mellitus Status: Chronic
--- NOTE | 2017-05-23 11:31 | CP.PCM.DIS ---
<Rosanna Sorto - Last Filed: 05/23/17 12:37> Provider - Provider Date of Admission: 05/18/17 13:00 Attending physician: Viola Cano MD Primary care physician: Dr. Galvez Consults: Cardiology- Dr. Last Pulmonology- Dr. Hameed Intensive Care- Dr. Marsh Time Spent in preparation of Discharge (in minutes): 40 Diagnosis - Discharge Diagnosis (1) Pneumonia Status: Acute Comment: Pulm consult- Dr. Hameed. Pt failed outpt treatment with azithromycin, presented septic with pneumonia as source. Currently on IV antibiotics- zosyn. Clinically improving, no longer septic. (2) COPD (chronic obstructive pulmonary disease) Status: Acute Comment: Chronic, long standing. Saturates well on 2-3L nasal canula; receiving levalbuterol, advair, spiriva. Desaturates to 84% when without O2 while working with PT. (3) NSTEMI (non-ST elevated myocardial infarction) Status: Acute Comment: Cardiology consult- Dr. Last. Rise in troponins, suspected to be secondary possible anterolateral subendocardial injury as read on EKG. No indication for code heart at this time. Troponins have trended down after reaching peak. (4) Atrial fibrillation Status: Chronic Priority: High Comment: RVR resolved; pt is rate controlled. Followed by cardiology. Ok to transfer to TCU. (5) Type 2 diabetes mellitus Status: Chronic Priority: High Comment: Continue with home dose levemir; hypoglycemia protocol and insulin coverage scale. (6) Hyperlipidemia Status: Acute Comment: Increased atorvastatin to 40 mg daily Hospital Course - Lab Results Lab Results: Micro Results 05/21/17 15:00 Nose MRSA Culture (Admit) - Final MRSA NOT DETECTED 05/18/17 12:30 Blood-Venous Blood Culture - Preliminary NO GROWTH AFTER 4 DAYS 05/18/17 11:45 Blood-Venous Blood Culture - Preliminary NO GROWTH AFTER 4 DAYS 05/19/17 18:00 Sputum Induced Gram Stain - Final 05/19/17 18:00 Sputum Induced Sputum Culture - Final Yeast Species 05/18/17 07:59 Naris MRSA Culture (Admit) - Final MRSA NOT DETECTED 05/18/17 14:20 Urine,Clean Catch Urine Culture - Final No Growth (<1,000 CFU/ML) Most Recent Lab Values WBC 8.4 K/uL (4.8-10.8) 05/23/17 04:20 RBC 3.88 Mil/uL (4.40-5.90) L 05/23/17 04:20 Hgb 12.5 g/dL (12.0-18.0) 05/23/17 04:20 Hct 35.9 % (35.0-51.0) 05/23/17 04:20 MCV 92.5 fl (80.0-94.0) 05/23/17 04:20 MCH 32.3 pg (27.0-31.0) H 05/23/17 04:20 MCHC 35.0 g/dL (33.0-37.0) 05/23/17 04:20 RDW 12.9 % (11.5-14.5) 05/23/17 04:20 Plt Count 259 K/uL (130-400) 05/23/17 04:20 MPV 7.4 fl (7.2-11.7) 05/22/17 05:50 Neut % (Auto) 68.0 % (50.0-75.0) 05/22/17 05:50 Lymph % (Auto) 18.7 % (20.0-40.0) L 05/22/17 05:50 [place] % (Auto) 9.2 % (0.0-10.0) 05/22/17 05:50 Eos % (Auto) 3.3 % (0.0-4.0) 05/22/17 05:50 Baso % (Auto) 0.8 % (0.0-2.0) 05/22/17 05:50 Neut # (Auto) 5.2 K/uL (1.8-7.0) 05/22/17 05:50 Lymph # (Auto) 1.4 K/uL (1.0-4.3) 05/22/17 05:50 [place] # (Auto) 0.7 K/uL (0.0-0.8) 05/22/17 05:50 Eos # (Auto) 0.3 K/uL (0.0-0.7) 05/22/17 05:50 Baso # (Auto) 0.1 K/uL (0.0-0.2) 05/22/17 05:50 Neutrophils % (Manual) 83 % (42-75) H 05/18/17 11:45 Band Neutrophils % 2 % (0-2) 05/18/17 11:45 Lymphocytes % (Manual) 5 % (20-50) L 05/18/17 11:45 Monocytes % (Manual) 9 % (0-10) 05/18/17 11:45 Eosinophils % (Manual) 1 % (0-7) 05/18/17 11:45 Platelet Estimate Normal (NORMAL) 05/18/17 11:45 PT 25.5 Seconds (9.8-13.1) H D 05/23/17 04:20 INR 2.3 (0.9-1.2) H D 05/23/17 04:20 APTT 33.7 Seconds (25.6-37.1) D 05/20/17 05:08 pCO2 34 mm/Hg (35-45) L 05/19/17 04:53 pO2 85 mm/Hg (80-100) 05/19/17 04:53 HCO3 26.0 mmol/L (21-28) 05/19/17 04:53 ABG pH 7.47 (7.35-7.45) H 05/19/17 04:53 ABG Total CO2 25.7 mmol/L (22-28) 05/19/17 04:53 ABG O2 Saturation 97.8 % (95-98) 05/19/17 04:53 ABG O2 Content 17.2 ML/dL (15-23) 05/19/17 04:53 ABG Base Excess 1.4 mmol/L (-2.0-3.0) 05/19/17 04:53 ABG Hemoglobin 12.9 g/dL (11.7-17.4) 05/19/17 04:53 ABG Carboxyhemoglobin 2.2 % (0.5-1.5) H 05/19/17 04:53 POC ABG HHb (Measured) 2.1 % (0.0-5.0) 05/19/17 04:53 ABG Methemoglobin 1.2 % (0.0-3.0) 05/19/17 04:53 ABG O2 Capacity 17.6 mL/dL (16-24) 05/19/17 04:53 Scout Test Yes 05/19/17 04:53 VBG pH 7.40 (7.32-7.43) 05/18/17 14:51 VBG pCO2 40 mmHg (40-60) 05/18/17 14:51 VBG HCO3 24.2 mmol/L 05/18/17 14:51 VBG Total CO2 26.0 mmol/L (22-28) 05/18/17 14:51 VBG O2 Sat (Calc) 78.6 % (40-65) H 05/18/17 14:51 VBG Base Excess 0.0 mmol/L (0.0-2.0) 05/18/17 14:51 VBG Potassium 5.2 mmol/L (3.6-5.2) 05/18/17 14:51 A-a O2 Difference 158.0 mm/Hg 05/19/17 04:53 Hgb O2 Saturation 94.5 % (95.0-98.0) L 05/19/17 04:53 Sodium 136.0 mmol/L (132-148) 05/18/17 14:51 Chloride 102.0 mmol/L (98-107) 05/18/17 14:51 Glucose 127 mg/dL (75-110) H 05/18/17 14:51 Lactate 4.1 mmol/L (0.7-2.1) H* 05/18/17 14:51 Liter Flow 35 05/19/17 04:53 Vent Mode Hfov 05/19/17 04:53 FiO2 40.0 % 05/19/17 04:53 Blood Gas Comments Lactate 4.1 05/18/17 14:51 Crit Value Called To kash Woods 05/18/17 14:51 Crit Value Called By 05/18/17 14:51 Crit Value Read Back Y 05/18/17 14:51 Blood Gas Notified Time 1459 05/18/17 14:51 Sodium 143 mmol/l (132-148) 05/23/17 04:20 Potassium 4.0 MMOL/L (3.6-5.0) 05/23/17 04:20 Chloride 104 mmol/L (98-107) 05/23/17 04:20 Carbon Dioxide 30 mmol/L (22-30) 05/23/17 04:20 Anion Gap 13 (10-20) 05/23/17 04:20 BUN 21 mg/dl (9-20) H 05/23/17 04:20 Creatinine 0.9 mg/dl (0.8-1.5) 05/23/17 04:20 Est GFR ( Amer) > 60 05/23/17 04:20 Est GFR (Non-Af Amer) > 60 05/23/17 04:20 POC Glucose (mg/dL) 224 mg/dL (65-110) H 05/23/17 11:04 Random Glucose 105 mg/dL (75-110) 05/23/17 04:20 Hemoglobin A1c 7.7 % (4.2-6.5) H 05/21/17 04:56 Lactic Acid 1.8 MMOL/L (0.7-2.1) 05/19/17 05:00 Calcium 9.2 mg/dL (8.4-10.2) 05/23/17 04:20 Magnesium 1.2 MG/DL (1.6-2.3) L 05/18/17 19:50 Total Bilirubin 1.1 mg/dl (0.2-1.3) 05/20/17 05:08 AST 73 U/L (17-59) H 05/20/17 05:08 ALT 41 U/L (21-72) 05/20/17 05:08 Alkaline Phosphatase 40 U/L (38-126) 05/20/17 05:08 Troponin I 0.8540 ng/mL (0.00-0.120) H* 05/19/17 10:12 Total Protein 6.0 G/DL (6.3-8.2) L 05/20/17 05:08 Albumin 3.0 g/dL (3.5-5.0) L 05/20/17 05:08 Globulin 3.0 gm/dL (2.2-3.9) 05/20/17 05:08 Albumin/Globulin Ratio 1.0 (1.0-2.1) 05/20/17 05:08 Procalcitonin 13.81 NG/ML (0.19-0.49) H 05/18/17 05:00 Venous Blood Potassium 5.2 mmol/L (3.6-5.2) 05/18/17 14:51 Urine Color Yellow (YELLOW) 05/18/17 14:20 Urine Clarity Slighty-cloudy (Clear) 05/18/17 14:20 Urine pH 5.0 (5.0-8.0) 05/18/17 14:20 Ur Specific [place] 1.016 (1.003-1.030) 05/18/17 14:20 Urine Protein Negative mg/dL (NEGATIVE) 05/18/17 14:20 Urine Glucose (UA) Neg mg/dL (Normal) 05/18/17 14:20 Urine Ketones Negative mg/dL (NEGATIVE) 05/18/17 14:20 Urine Blood Negative (NEGATIVE) 05/18/17 14:20 Urine Nitrate Negative (NEGATIVE) 05/18/17 14:20 Urine Bilirubin Negative (NEGATIVE) 05/18/17 14:20 Urine Urobilinogen 0.2-1.0 mg/dL (0.2-1.0) 05/18/17 14:20 Ur Leukocyte Esterase Neg Nakul/uL (Negative) 05/18/17 14:20 Urine RBC (Auto) 3 /hpf (0-3) 05/18/17 14:20 Urine Microscopic WBC 1 /hpf (0-5) 05/18/17 14:20 Ur Squamous Epith Cells < 1 /hpf (0-5) 05/18/17 14:20 Urine Bacteria Rare (<OCC) 05/18/17 14:20 Hyaline Casts 0-2 /hpf (0-2) 05/18/17 14:20 Digoxin 1.5 ng/mL (0.8-2.0) 05/18/17 19:50 C. difficile Ag & Toxin Negative (NEGATIVE) 05/20/17 16:40 Influenza Typ A,B (EIA) Negative for flu a/b (NEGATIVE) 05/18/17 11:45 Ur L.pneumophila Ag Negative (NEGATIVE) 05/19/17 13:05 Mycoplasma pneumon IgM 11 U/mL (<770) 05/19/17 08:58 Blood Type A POSITIVE 05/19/17 04:50 Blood Type Confirm A POSITIVE 05/19/17 07:00 Antibody Screen Negative 05/19/17 04:50 BBK History Checked No verified bt 05/19/17 04:50 Discharge Exam - Head Exam Head Exam: NORMAL INSPECTION Discharge Plan - Follow Up Plan Condition: GOOD Disposition: HOME/ ROUTINE Instructions: Pneumonia, Adult (DC) <Yehuda,Kathy - Last Filed: 05/23/17 15:46> Provider - Provider Date of Admission: 05/18/17 13:00 Attending physician: Viola Cano MD Hospital Course - Lab Results Lab Results: Micro Results 05/18/17 12:30 Blood-Venous Blood Culture - Final NO GROWTH AFTER 5 DAYS 05/18/17 12:30 Blood-Venous Gram Stain - Final TEST NOT PERFORMED 05/18/17 11:45 Blood-Venous Blood Culture - Final NO GROWTH AFTER 5 DAYS 05/18/17 11:45 Blood-Venous Gram Stain - Final TEST NOT PERFORMED 05/21/17 15:00 Nose MRSA Culture (Admit) - Final MRSA NOT DETECTED 05/19/17 18:00 Sputum Induced Gram Stain - Final 05/19/17 18:00 Sputum Induced Sputum Culture - Final Yeast Species 05/18/17 07:59 Naris MRSA Culture (Admit) - Final MRSA NOT DETECTED 05/18/17 14:20 Urine,Clean Catch Urine Culture - Final No Growth (<1,000 CFU/ML) Most Recent Lab Values WBC 8.4 K/uL (4.8-10.8) 05/23/17 04:20 RBC 3.88 Mil/uL (4.40-5.90) L 05/23/17 04:20 Hgb 12.5 g/dL (12.0-18.0) 05/23/17 04:20 Hct 35.9 % (35.0-51.0) 05/23/17 04:20 MCV 92.5 fl (80.0-94.0) 05/23/17 04:20 MCH 32.3 pg (27.0-31.0) H 05/23/17 04:20 MCHC 35.0 g/dL (33.0-37.0) 05/23/17 04:20 RDW 12.9 % (11.5-14.5) 05/23/17 04:20 Plt Count 259 K/uL (130-400) 05/23/17 04:20 MPV 7.4 fl (7.2-11.7) 05/22/17 05:50 Neut % (Auto) 68.0 % (50.0-75.0) 05/22/17 05:50 Lymph % (Auto) 18.7 % (20.0-40.0) L 05/22/17 05:50 [place] % (Auto) 9.2 % (0.0-10.0) 05/22/17 05:50 Eos % (Auto) 3.3 % (0.0-4.0) 05/22/17 05:50 Baso % (Auto) 0.8 % (0.0-2.0) 05/22/17 05:50 Neut # (Auto) 5.2 K/uL (1.8-7.0) 05/22/17 05:50 Lymph # (Auto) 1.4 K/uL (1.0-4.3) 05/22/17 05:50 [place] # (Auto) 0.7 K/uL (0.0-0.8) 05/22/17 05:50 Eos # (Auto) 0.3 K/uL (0.0-0.7) 05/22/17 05:50 Baso # (Auto) 0.1 K/uL (0.0-0.2) 05/22/17 05:50 Neutrophils % (Manual) 83 % (42-75) H 05/18/17 11:45 Band Neutrophils % 2 % (0-2) 05/18/17 11:45 Lymphocytes % (Manual) 5 % (20-50) L 05/18/17 11:45 Monocytes % (Manual) 9 % (0-10) 05/18/17 11:45 Eosinophils % (Manual) 1 % (0-7) 05/18/17 11:45 Platelet Estimate Normal (NORMAL) 05/18/17 11:45 PT 25.5 Seconds (9.8-13.1) H D 05/23/17 04:20 INR 2.3 (0.9-1.2) H D 05/23/17 04:20 APTT 33.7 Seconds (25.6-37.1) D 05/20/17 05:08 pCO2 34 mm/Hg (35-45) L 05/19/17 04:53 pO2 85 mm/Hg (80-100) 05/19/17 04:53 HCO3 26.0 mmol/L (21-28) 05/19/17 04:53 ABG pH 7.47 (7.35-7.45) H 05/19/17 04:53 ABG Total CO2 25.7 mmol/L (22-28) 05/19/17 04:53 ABG O2 Saturation 97.8 % (95-98) 05/19/17 04:53 ABG O2 Content 17.2 ML/dL (15-23) 05/19/17 04:53 ABG Base Excess 1.4 mmol/L (-2.0-3.0) 05/19/17 04:53 ABG Hemoglobin 12.9 g/dL (11.7-17.4) 05/19/17 04:53 ABG Carboxyhemoglobin 2.2 % (0.5-1.5) H 05/19/17 04:53 POC ABG HHb (Measured) 2.1 % (0.0-5.0) 05/19/17 04:53 ABG Methemoglobin 1.2 % (0.0-3.0) 05/19/17 04:53 ABG O2 Capacity 17.6 mL/dL (16-24) 05/19/17 04:53 Scout Test Yes 05/19/17 04:53 VBG pH 7.40 (7.32-7.43) 05/18/17 14:51 VBG pCO2 40 mmHg (40-60) 05/18/17 14:51 VBG HCO3 24.2 mmol/L 05/18/17 14:51 VBG Total CO2 26.0 mmol/L (22-28) 05/18/17 14:51 VBG O2 Sat (Calc) 78.6 % (40-65) H 05/18/17 14:51 VBG Base Excess 0.0 mmol/L (0.0-2.0) 05/18/17 14:51 VBG Potassium 5.2 mmol/L (3.6-5.2) 05/18/17 14:51 A-a O2 Difference 158.0 mm/Hg 05/19/17 04:53 Hgb O2 Saturation 94.5 % (95.0-98.0) L 05/19/17 04:53 Sodium 136.0 mmol/L (132-148) 05/18/17 14:51 Chloride 102.0 mmol/L (98-107) 05/18/17 14:51 Glucose 127 mg/dL (75-110) H 05/18/17 14:51 Lactate 4.1 mmol/L (0.7-2.1) H* 05/18/17 14:51 Liter Flow 35 05/19/17 04:53 Vent Mode Hfov 05/19/17 04:53 FiO2 40.0 % 05/19/17 04:53 Blood Gas Comments Lactate 4.1 05/18/17 14:51 Crit Value Called To kash Woods 05/18/17 14:51 Crit Value Called By 05/18/17 14:51 Crit Value Read Back Y 05/18/17 14:51 Blood Gas Notified Time 1459 05/18/17 14:51 Sodium 143 mmol/l (132-148) 05/23/17 04:20 Potassium 4.0 MMOL/L (3.6-5.0) 05/23/17 04:20 Chloride 104 mmol/L (98-107) 05/23/17 04:20 Carbon Dioxide 30 mmol/L (22-30) 05/23/17 04:20 Anion Gap 13 (10-20) 05/23/17 04:20 BUN 21 mg/dl (9-20) H 05/23/17 04:20 Creatinine 0.9 mg/dl (0.8-1.5) 05/23/17 04:20 Est GFR ( Amer) > 60 05/23/17 04:20 Est GFR (Non-Af Amer) > 60 05/23/17 04:20 POC Glucose (mg/dL) 224 mg/dL (65-110) H 05/23/17 11:04 Random Glucose 105 mg/dL (75-110) 05/23/17 04:20 Hemoglobin A1c 7.7 % (4.2-6.5) H 05/21/17 04:56 Lactic Acid 1.8 MMOL/L (0.7-2.1) 05/19/17 05:00 Calcium 9.2 mg/dL (8.4-10.2) 05/23/17 04:20 Magnesium 1.2 MG/DL (1.6-2.3) L 05/18/17 19:50 Total Bilirubin 1.1 mg/dl (0.2-1.3) 05/20/17 05:08 AST 73 U/L (17-59) H 05/20/17 05:08 ALT 41 U/L (21-72) 05/20/17 05:08 Alkaline Phosphatase 40 U/L (38-126) 05/20/17 05:08 Troponin I 0.8540 ng/mL (0.00-0.120) H* 05/19/17 10:12 Total Protein 6.0 G/DL (6.3-8.2) L 05/20/17 05:08 Albumin 3.0 g/dL (3.5-5.0) L 05/20/17 05:08 Globulin 3.0 gm/dL (2.2-3.9) 05/20/17 05:08 Albumin/Globulin Ratio 1.0 (1.0-2.1) 05/20/17 05:08 Procalcitonin 13.81 NG/ML (0.19-0.49) H 05/18/17 05:00 Venous Blood Potassium 5.2 mmol/L (3.6-5.2) 05/18/17 14:51 Urine Color Yellow (YELLOW) 05/18/17 14:20 Urine Clarity Slighty-cloudy (Clear) 05/18/17 14:20 Urine pH 5.0 (5.0-8.0) 05/18/17 14:20 Ur Specific [place] 1.016 (1.003-1.030) 05/18/17 14:20 Urine Protein Negative mg/dL (NEGATIVE) 05/18/17 14:20 Urine Glucose (UA) Neg mg/dL (Normal) 05/18/17 14:20 Urine Ketones Negative mg/dL (NEGATIVE) 05/18/17 14:20 Urine Blood Negative (NEGATIVE) 05/18/17 14:20 Urine Nitrate Negative (NEGATIVE) 05/18/17 14:20 Urine Bilirubin Negative (NEGATIVE) 05/18/17 14:20 Urine Urobilinogen 0.2-1.0 mg/dL (0.2-1.0) 05/18/17 14:20 Ur Leukocyte Esterase Neg Nakul/uL (Negative) 05/18/17 14:20 Urine RBC (Auto) 3 /hpf (0-3) 05/18/17 14:20 Urine Microscopic WBC 1 /hpf (0-5) 05/18/17 14:20 Ur Squamous Epith Cells < 1 /hpf (0-5) 05/18/17 14:20 Urine Bacteria Rare (<OCC) 05/18/17 14:20 Hyaline Casts 0-2 /hpf (0-2) 05/18/17 14:20 Digoxin 1.5 ng/mL (0.8-2.0) 05/18/17 19:50 C. difficile Ag & Toxin Negative (NEGATIVE) 05/20/17 16:40 Influenza Typ A,B (EIA) Negative for flu a/b (NEGATIVE) 05/18/17 11:45 Ur L.pneumophila Ag Negative (NEGATIVE) 05/19/17 13:05 Mycoplasma pneumon IgG 4.44 (<=0.90) H 05/19/17 08:58 Mycoplasma pneumon IgM 11 U/mL (<770) 05/19/17 08:58 Blood Type A POSITIVE 05/19/17 04:50 Blood Type Confirm A POSITIVE 05/19/17 07:00 Antibody Screen Negative 05/19/17 04:50 BBK History Checked No verified bt 05/19/17 04:50 - Hospital Course Hospital Course: Pt was admitted sepsis due to pneumonia and also found to have a NSTEMI but no code heart ,initially admitted to ICU, pulmnology and cardiology were consulted , and started on IV antibiotics, tolerated medical management well and was downgraded to telemetry floor on HOD#3, pt remained stable while on telemetry and is now being discharged to TCU for rehab and to complete antibiotic therapy. Discharge Exam - Eye Exam Eye Exam: Normal appearance - ENT Exam ENT Exam: Mucous Membranes Moist - Respiratory Exam Respiratory Exam: NORMAL BREATHING PATTERN - Cardiovascular Exam Cardiovascular Exam: Irregular Rhythm, +S1, +S2 - GI/Abdominal Exam GI & Abdominal Exam: Normal Bowel Sounds, Soft. absent: Tenderness - Neurological Exam Neurological exam: Alert, CN II-XII Intact, Oriented x3 - Skin Skin Exam: Dry
--- NOTE | 2017-05-23 15:31 | PQF GENQUE ---
Dr. Cano, Please specify type of pneumonia in the progress notes: if known; Note: CAP, HAP, and HCAP indicate where the pneumonia was acquired, not a specific type. i.e. Aspiration pneumonia Please document specific aspirate (food, liquids, etc.) Please indicate if this is postprocedural Bacterial (specify organism) Bronchopneumonia (specify organism) Interstitual pneumonia Organizing pneumonia/BOOP Pneumonia with influenza, ama flu, or H1N1 flu RSV pneumonia Tuberculosis, pulmonary Viral pneumonia Other pneumonia (specify organism or type) OR: Clinically unable to determine OR Unknown 2. Sputum culture grew Yeast . Please document the causal relationship to the pneumonia being treated. 3. Please specify the organism causing the pneumonia: if known 05/19 Pulmonary note: CT chest reveals a large area of suspected necrotizing pneumonia on the left parahilar area, not visible on plain CXR. ? necrotizing pneumonia in parahilar region of the left upper lobe. This form is a permanent part of the medical record Clarification of your documentation is requested to better reflect the severity of illness and intensity of treatment of your patient. Indicators present [] Specify: [] [] Specify: [] [] Specify: [] [] Specify: [] Location in the medical record that reflects the above clinical findings: [] Treatment Provided: [] PHYSICIAN'S RESPONSE Based on your medical judgment of the clinical indicators outlined above please clarify the following: [] Practitioner response [] If unable to determine, please check the box, sign and date. Present On Admission (POA) Indicator: [] Present at the time of admission [] Not present at the time of admission [] Clinically Undetermined In responding to this query, please exercise your independent professional judgment. The fact that a question is asked does not imply that any particular answer is desired or expected. Thank you for your clarification on this documentation. If you have any questions please call. * Thank you, Ioana Valle RN ext. #[phone] MTDD
[2017-05-23] MEDS ORDERED: Insulin Lispro (humaLOG) 100 Units/ml Inj SC SCH (16:30)
[2017-05-23 16:31] VITALS: BP 142/74; PULSE 72; TEMP 98; O2SAT 99
[2017-05-24] MEDS ORDERED: Digoxin 125 mcg (0.125 mg) Tab PO ONE (13:50)
== END 2017-05-23 16:30 | DRG 871 ==
LOC: H.ER 10:55 → H.ERHOLD 13:00 → H.ICU/CCU 23:24 → H.TEL 05-21 10:03
PROVIDERS: ADMIT Family Medicine Geriatric Medicine; ATTEND Family Medicine Geriatric Medicine
DX: A41.9 Sepsis, unspecified organism (principal); I21.4 Non-ST elevation (NSTEMI) myocardial infarction; J15.9 Unspecified bacterial pneumonia; E87.2 Acidosis; E11.22 Type 2 diabetes mellitus with diabetic chronic kidney disease; E11.40 Type 2 diabetes mellitus with diabetic neuropathy, unspecified; E11.65 Type 2 diabetes mellitus with hyperglycemia; I48.2 Chronic atrial fibrillation; R65.20 Severe sepsis without septic shock; R09.02 Hypoxemia; J43.9 Emphysema, unspecified; I25.10 Atherosclerotic heart disease of native coronary artery without angina pectoris; I12.9 Hypertensive chronic kidney disease with stage 1 through stage 4 chronic kidney disease, or unspecified chronic kidney disease; N18.9 Chronic kidney disease, unspecified; J98.4 Other disorders of lung; E78.5 Hyperlipidemia, unspecified; R91.8 Other nonspecific abnormal finding of lung field; E78.00 Pure hypercholesterolemia, unspecified; Z79.01 Long term (current) use of anticoagulants; Z79.4 Long term (current) use of insulin; Z87.891 Personal history of nicotine dependence; Z87.01 Personal history of pneumonia (recurrent)

== ENCOUNTER 2017-05-23 14:01 | Inpatient (IN) | payer OTHER, MEDICARE ==
[2017-05-23 17:00] VITALS: BMI 20.9
[2017-05-23] MEDS ORDERED: Levalbuterol 1.25 MG/3 ML Inhal Soln UD INH PRN (17:13)
[2017-05-23] MEDS ORDERED: Glucagon Recombinant 1 mg Inj IM PRN (17:30)
[2017-05-23] MEDS ORDERED: Dextrose 50% SYRINGE Inj (50 ml) IV PRN (17:30)
[2017-05-23] MEDS: Fluticasone-Salmeterol 500-50mcg Diskus IH SCH (21:35)
[2017-05-23] MEDS: Insulin Regular 100 units/ml SC SCH (21:36)
[2017-05-23] MEDS: Insulin Detemir 100 Units/ml Inj SC SCH (21:37)
[2017-05-23] MEDS: Piperacillin/Tazobact 3.375 GM in Sodium Chloride 0.9% 100 ML IVPB SCH (21:38)
[2017-05-24] MEDS: Piperacillin/Tazobact 3.375 GM in Sodium Chloride 0.9% 100 ML IVPB SCH ×4 (04:35→21:22)
[2017-05-24] MEDS: Insulin Regular 100 units/ml SC SCH ×4 (06:33→21:31)
[2017-05-24 06:50] LABS: INR 2.6 (0.9-1.2); PROTHROMBIN TIME 28.8 Seconds (9.8-13.1)
[2017-05-24] MEDS: Petrolatum UD PAK TOP SCH ×3 (08:07→16:37)
[2017-05-24] MEDS: Tiotropium 18 mcg Cap For Inhalation INH SCH (08:07)
[2017-05-24] MEDS: Fluticasone-Salmeterol 500-50mcg Diskus IH SCH ×2 (08:07→21:21)
--- NOTE | 2017-05-24 08:44 | CP.PCM.HP ---
History of Present Illness - History of Present Illness History of Present Illness: 76 yo M with PMH HTN, COPD, DM2, atrial fibrillation (sees Dr. Last), hx lung nodule (left lung nodule/mass that has been resected in the past; [place] [facility] [place] Pt had been on PO azithromycin for about 1 month for a pneumonia found on imaging [place] [facility] Recent admission to [facility] 05/18-05/23 for NSTEMI , pneumonia, and Afib (supratherapeutic INR at 3.7). Cardiology was consulted- no indication for code heart, cardiology followed pt while admitted and managed patient's coumadin. Pulmonology consulted and followed pt during admission as well. Initially he was admitted to ICU and started on IV antibiotics. He tolerated medical management well and was downgraded to telemetry floor. He remained stable and was discharged; now is being admitted to TCU for rehab and to complete antibiotic therapy. PMD: Dr. Galvez Past Med hx: hypertension, COPD, DM2, A-fib, lung nodule Past Surg hx: left lung Family hx: grandmother DM2, grandfather [place] Social hx: smoked cig for 10 yrs (age [age]), then smoked tobacco pipe from age [age], 1 beer a week, denies drug use Allergies: hydromorphone Next of kin: , [place] [phone] Code status: full code Present on Admission - Present on Admission Any Indicators Present on Admission: No Review of Systems - Review of Systems All systems: reviewed and no additional remarkable complaints except - Respiratory Respiratory: Dyspnea on Exertion (when off O2) Past Patient History - Past Medical History & Family History Past Medical History?: Yes - Past Social History Smoking Status: Former Smoker Alcohol: Occasional Drugs: Denies Home Situation {Lives}: With Family - CARDIAC Hx Cardiac Disorders: Yes Hx Atrial Fibrillation: Yes Hx Heart Attack: Yes (NSTEMI) Hx Hypercholesterolemia: Yes Hx Hypertension: Yes - PULMONARY Hx Respiratory Disorders: Yes Hx Chronic Obstructive Pulmonary Disease (COPD): Yes Hx Emphysema: Yes Hx Pneumonia: Yes - NEUROLOGICAL Hx Neurological Disorder: No - HEENT Hx HEENT Problems: No - RENAL Hx Chronic Kidney Disease: Yes - ENDOCRINE/METABOLIC Hx Diabetes Mellitus Type 2: Yes - HEMATOLOGICAL/ONCOLOGICAL Hx Blood Disorders: No Hx AIDS: No Hx Human Immunodeficiency Virus (HIV): No - INTEGUMENTARY Hx Dermatological Problems: No - MUSCULOSKELETAL/RHEUMATOLOGICAL Hx Falls: No - GASTROINTESTINAL Hx Gastrointestinal Disorders: No - GENITOURINARY/GYNECOLOGICAL Hx Genitourinary Disorders: Yes Hx Prostate Problems: Yes - PSYCHIATRIC Hx Substance Use: No - SURGICAL HISTORY Hx Surgeries: Yes Other/Comment: LUNG SX . BACK SX - ANESTHESIA Hx Anesthesia: Yes Hx Anesthesia Reactions: No Hx Malignant Hyperthermia: No Meds Allergies/Adverse Reactions: Allergies Allergy/AdvReac Type Severity Reaction Status Date / Time hydromorphone Allergy Mild RASH Verified 05/18/17 11:44 Physical Exam - Constitutional Appears: No Acute Distress - Head Exam Head Exam: NORMAL INSPECTION - Eye Exam Eye Exam: Normal appearance - ENT Exam ENT Exam: Mucous Membranes Moist - Respiratory Exam Respiratory Exam: Decreased Breath Sounds, NORMAL BREATHING PATTERN. absent: Respiratory Distress Additional comments: wearing NC - Cardiovascular Exam Cardiovascular Exam: Irregular Rhythm - GI/Abdominal Exam GI & Abdominal Exam: Normal Bowel Sounds, Soft - Extremities Exam Extremities exam: Positive for: normal capillary refill. Negative for: calf tenderness - Neurological Exam Neurological exam: Alert, Oriented x3 - Psychiatric Exam Psychiatric exam: Normal Mood - Skin Skin Exam: Dry, Normal Color, Warm Results - Vital Signs Recent Vital Signs: Last Vital Signs Temp 98.1 F 05/24/17 08:41 Pulse 70 05/24/17 08:41 Resp 20 05/24/17 08:41 BP 149/74 05/24/17 08:41 Pulse Ox 98 05/24/17 08:41 - Labs Labs: Laboratory Results - last 24 hr 05/23/17 05/24/17 05/24/17 20:40 05:41 05:50 PT 28.8 H INR 2.6 H POC Glucose (mg/dL) 140 H 114 H Assessment & Plan - Assessment and Plan (Free Text) Assessment: 76 yo M with PMH COPD, pneumonia, HLD, HTN, diabetes mellitus admitted due to TCU for antibiotics and rehab/physical therapy. Plan: # Pneumonia - Pulmonology consulted, Dr. Hameed. - Sputum culture x3 - Zosyn IVPB Q6, Day 7 # COPD - Pulmonology consult- Dr. Hameed; consult appreciated - Continue with medications/recommendations as per pulmonary - Nasal canula 2L # A fib - Digoxin level was 1.5 - Continue with medications/recommendations as per cardiology - Digoxin held by master carpenter; was to be restarted at lower dose; lower dose restarted today and will follow up with cardiology recommendations # Diabetes Mellitus - Levemir 10 mg HS - hypoglycemia protocol # HTN - Losartan 25 mg daily - Monitor for changes # HLD - Home med atorvastatin 40mg # DVT prophylaxis - Pt received 2.5 mg coumadin yesterday; INR 2.6 today - Will receive 2.5 mg coumadin again today - Monitor INR
[2017-05-24] MEDS ORDERED: Digoxin 125 mcg (0.125 mg) Tab PO ONE (13:54)
[2017-05-24] MEDS: Insulin Detemir 100 Units/ml Inj SC SCH (21:32)
[2017-05-25] MEDS: Piperacillin/Tazobact 3.375 GM in Sodium Chloride 0.9% 100 ML IVPB SCH ×5 (05:10→21:00)
[2017-05-25 06:32] LABS: PROTHROMBIN TIME 22.9 Seconds (9.8-13.1)
[2017-05-25] MEDS: Insulin Regular 100 units/ml SC SCH ×4 (06:34→21:01)
[2017-05-25] MEDS: Fluticasone-Salmeterol 500-50mcg Diskus IH SCH ×2 (08:57→21:01)
[2017-05-25] MEDS: Petrolatum UD PAK TOP SCH ×3 (09:00→16:58)
[2017-05-25] MEDS: Tiotropium 18 mcg Cap For Inhalation INH SCH (09:00)
--- NOTE | 2017-05-25 10:09 | CP.PCM.CON ---
History of Present Illness - History of Present Illness History of Present Illness: This 76-year-old man is known to me over 10 years. He has severe COPD and is being followed by [facility] for a nodule in his lungs which was detected on a CT scan and recently multiple additional nodules have also been noted. The patient came into the hospital after developing profound shortness of breath and chills and fever and was found to have pneumonia which was treated with IV antibiotic takes and now continues to go. He has a history of chronic atrial fibrillation for which he had been taking digoxin and was found to have significant bradycardia while on telemetry floor and digoxin was withheld for 3 days. The patient has also been taking warfarin to prevent systemic embolization. The patient also is a hypertensive. He had never manifested overt congestive cardiac failure. The patient now is hospitalized in the transitional care unit prior to discharge. Physical examination shows an elderly man who is alert awake and coherent. He indicates that he has been making progress as far as physical therapy is concerned. He spent most of his days out of bed and exercises on a regular basis with the physical therapy staff. He denies any palpitations and reports that his dyspnea on exertion is much less. During this examination the patient was found sitting out of bed and couldn't carry on a conversation. He was afebrile with a pulse rate of 64 bpm and regular and a blood pressure of 156/70 mmHg. His jugular venous pressure was not elevated and there was no edema or his lower extremity. His renal pulses were extremely feeble there were no carotid bruits. The chest was slightly emphysematous. The apex was not palpable. The first and second heart sounds were normal there was a brief apical systolic murmur but there were no gallop rhythm and there were no rales. His lab data was noted. Impression: Severe COPD and recent pneumonia. A suspicious lung nodule which is being followed by his oncologist. Chronic atrial fibrillation and diabetes mellitus. Hypertension. After withholding digoxin for 4 days it has been reintroduced at a lower dose. The patient's systolic blood pressure has been running high and I have increased his dose of losartan from 25 mg to 50 mg daily. I have ordered his warfarin dose. His INR was 2 today. The patient should have a Holter recording after 3 or 4 days of taking current dose of digoxin. Past Patient History - Past Medical History & Family History Past Medical History?: Yes - Past Social History Smoking Status: Former Smoker Alcohol: Occasional Drugs: Denies Home Situation {Lives}: With Family - CARDIAC Hx Cardiac Disorders: Yes Hx Atrial Fibrillation: Yes Hx Heart Attack: Yes (NSTEMI) Hx Hypercholesterolemia: Yes Hx Hypertension: Yes - PULMONARY Hx Respiratory Disorders: Yes Hx Chronic Obstructive Pulmonary Disease (COPD): Yes Hx Emphysema: Yes Hx Pneumonia: Yes - NEUROLOGICAL Hx Neurological Disorder: No - HEENT Hx HEENT Problems: No - RENAL Hx Chronic Kidney Disease: Yes - ENDOCRINE/METABOLIC Hx Diabetes Mellitus Type 2: Yes - HEMATOLOGICAL/ONCOLOGICAL Hx Blood Disorders: No Hx AIDS: No Hx Human Immunodeficiency Virus (HIV): No - INTEGUMENTARY Hx Dermatological Problems: No - MUSCULOSKELETAL/RHEUMATOLOGICAL Hx Falls: No - GASTROINTESTINAL Hx Gastrointestinal Disorders: No - GENITOURINARY/GYNECOLOGICAL Hx Genitourinary Disorders: Yes Hx Prostate Problems: Yes - PSYCHIATRIC Hx Substance Use: No - SURGICAL HISTORY Hx Surgeries: Yes Other/Comment: LUNG SX . BACK SX - ANESTHESIA Hx Anesthesia: Yes Hx Anesthesia Reactions: No Hx Malignant Hyperthermia: No Meds Allergies/Adverse Reactions: Allergies Allergy/AdvReac Type Severity Reaction Status Date / Time hydromorphone Allergy Mild RASH Verified 05/18/17 11:44 - Medications Medications: Current Medications Atorvastatin Calcium (Lipitor) 40 mg PO DAILY@2100 [facility] Last Admin: 05/24/17 21:21 Dose: 40 mg Dextrose (Dextrose 50% Inj) 0 ml IV STAT PRN; Protocol PRN Reason: Hypoglycemia Protocol Dextrose (Glutose 15) 0 gm PO ONCE PRN; Protocol PRN Reason: Hypoglycemia Protocol Digoxin (Digoxin) 0.125 mg PO DAILY [facility] Emollient Ointment (Vaseline Oint) 1 pkt TOP TID [facility] Last Admin: 05/25/17 09:00 Dose: 1 pkt Finasteride (Proscar) 5 mg PO DAILY [facility] Last Admin: 05/25/17 08:59 Dose: 5 mg Gabapentin (Neurontin) 300 mg PO HS [facility] Last Admin: 05/24/17 21:21 Dose: 300 mg Glucagon (Glucagen Diagnostic Kit) 0 mg IM STAT PRN; Protocol PRN Reason: Hypoglycemia Protocol Piperacillin Sod/Tazobactam (Sod 3.375 gm/ Sodium Chloride) 100 mls @ 100 mls/ hr IVPB Q6 [facility] PRN Reason: Protocol Last Admin: 05/25/17 05:10 Dose: 100 mls/hr Insulin Detemir (Levemir) 10 units SC HS [facility] Last Admin: 05/24/17 21:32 Dose: Not Given Insulin Human Regular (Humulin R) 0 units SC ACHS [facility] PRN Reason: Protocol Last Admin: 05/25/17 06:34 Dose: Not Given Levalbuterol HCl (Xopenex) 1.25 mg INH RQ8 PRN PRN Reason: Shortness of Breath Losartan Potassium (Cozaar) 50 mg PO DAILY [facility] Repaglinide (Prandin) 2 mg PO TID [facility] Last Admin: 05/25/17 08:59 Dose: 2 mg Fluticasone/Salmeterol (Advair Diskus 500/50) 1 puff IH Q12 [facility] Last Admin: 05/25/17 08:57 Dose: 1 puff Tiotropium [place] (Spiriva) 18 mcg INH DAILY [facility] Last Admin: 05/25/17 09:00 Dose: 18 mcg Warfarin Sodium (Coumadin) 5 mg PO QD5 [facility] PRN Reason: Protocol Stop: 05/25/17 17:01 Results - Vital Signs Recent Vital Signs: Last Vital Signs Temp 97.0 F L 05/25/17 07:43 Pulse 79 05/25/17 07:43 Resp 20 05/25/17 07:43 BP 144/73 05/25/17 07:43 Pulse Ox 97 05/25/17 07:43 - Labs Labs: Laboratory Results - last 24 hr 05/24/17 05/24/17 05/24/17 11:15 15:25 20:16 PT INR POC Glucose (mg/dL) 166 H 217 H 62 L 05/24/17 05/25/17 21:12 05:54 PT 22.9 H D INR 2.0 H D POC Glucose (mg/dL) 139 H
--- NOTE | 2017-05-25 11:32 | CP.PCM.PN ---
Subjective - Date & Time of Evaluation Date of Evaluation: 05/25/17 Time of Evaluation: 09:35 - Subjective Subjective: Pt seen and evaluated at bedside this am; sitting up in bed reading newspaper. Stated he participated in PT yesterday. Wearing NC and receiving IV antibiotics. Objective - Vital Signs/Intake and Output Vital Signs (last 24 hours): Temp Pulse Resp BP Pulse Ox 97.0 F L 79 20 144/73 97 05/25/17 07:43 05/25/17 07:43 05/25/17 07:43 05/25/17 07:43 05/25/17 07:43 - Medications Medications: Current Medications Atorvastatin Calcium (Lipitor) 40 mg PO DAILY@2100 [facility] Last Admin: 05/24/17 21:21 Dose: 40 mg Dextrose (Dextrose 50% Inj) 0 ml IV STAT PRN; Protocol PRN Reason: Hypoglycemia Protocol Dextrose (Glutose 15) 0 gm PO ONCE PRN; Protocol PRN Reason: Hypoglycemia Protocol Digoxin (Digoxin) 0.125 mg PO DAILY [facility] Emollient Ointment (Vaseline Oint) 1 pkt TOP TID [facility] Last Admin: 05/25/17 09:00 Dose: 1 pkt Finasteride (Proscar) 5 mg PO DAILY [facility] Last Admin: 05/25/17 08:59 Dose: 5 mg Gabapentin (Neurontin) 300 mg PO HS [facility] Last Admin: 05/24/17 21:21 Dose: 300 mg Glucagon (Glucagen Diagnostic Kit) 0 mg IM STAT PRN; Protocol PRN Reason: Hypoglycemia Protocol Piperacillin Sod/Tazobactam (Sod 3.375 gm/ Sodium Chloride) 100 mls @ 100 mls/ hr IVPB Q6 [facility] PRN Reason: Protocol Last Admin: 05/25/17 05:10 Dose: 100 mls/hr Insulin Detemir (Levemir) 10 units SC HS [facility] Last Admin: 05/24/17 21:32 Dose: Not Given Insulin Human Regular (Humulin R) 0 units SC ACHS [facility] PRN Reason: Protocol Last Admin: 05/25/17 06:34 Dose: Not Given Levalbuterol HCl (Xopenex) 1.25 mg INH RQ8 PRN PRN Reason: Shortness of Breath Losartan Potassium (Cozaar) 50 mg PO DAILY [facility] Repaglinide (Prandin) 2 mg PO TID [facility] Last Admin: 05/25/17 08:59 Dose: 2 mg Fluticasone/Salmeterol (Advair Diskus 500/50) 1 puff IH Q12 [facility] Last Admin: 05/25/17 08:57 Dose: 1 puff Tiotropium [place] (Spiriva) 18 mcg INH DAILY [facility] Last Admin: 05/25/17 09:00 Dose: 18 mcg Warfarin Sodium (Coumadin) 5 mg PO QD5 [facility] PRN Reason: Protocol Stop: 05/25/17 17:01 - Labs Labs: PT 22.9 Seconds (9.8-13.1) H D 05/25/17 05:54 INR 2.0 (0.9-1.2) H D 05/25/17 05:54 - Constitutional Appears: Non-toxic, No Acute Distress - Eye Exam Eye Exam: EOMI, Normal appearance Additional comments: wearing glasses - ENT Exam ENT Exam: Mucous Membranes Moist - Respiratory Exam Respiratory Exam: Decreased Breath Sounds, Respiratory Distress, NORMAL BREATHING PATTERN. absent: Wheezes - Cardiovascular Exam Cardiovascular Exam: Irregular Rhythm - GI/Abdominal Exam GI & Abdominal Exam: Soft, Normal Bowel Sounds - Extremities Exam Extremities Exam: Normal Capillary Refill. absent: Calf Tenderness - Back Exam Back Exam: NORMAL INSPECTION - Neurological Exam Neurological Exam: Alert, Awake, Oriented x3 - Psychiatric Exam Psychiatric exam: Normal Mood - Skin Skin Exam: Dry, Intact, Normal Color, Warm Assessment and Plan - Assessment and Plan (Free Text) Assessment: 76 yo M with PMH COPD, pneumonia, HLD, HTN, diabetes mellitus admitted due to TCU for antibiotics and rehab/physical therapy. Plan: # Pneumonia - Pulmonology consulted, Dr. Hameed. - Zosyn IVPB Q6, Day 8 # COPD - Pulmonology consult- Dr. Hameed; consult appreciated - Continue with medications/recommendations as per pulmonary - Nasal canula 2L # A fib - [employer] consult Dr. Last - Digoxin level was 1.5 on admission; digoxin held since 05/22 - To be restarted today 05/25 at lower than home dose (starting 0.125 mg today); Dr. Last plans Holter monitor in 3-4 days - Will continue to follow with cardiology recommendations # Diabetes Mellitus - Levemir 10 mg HS - Prandin 2mg TID home dose - Hypoglycemia protocol # HTN - Home med losartan increased to 50 mg from 25 mg - Losartan 25 mg daily - Monitor for changes # HLD - Home med atorvastatin 40mg # DVT prophylaxis - Pt received 2.5 mg coumadin yesterday; INR 2.0 today - Will receive 5 mg coumadin today (home dose) - Monitor INR
[2017-05-25] MEDS: Digoxin 125 mcg (0.125 mg) Tab PO SCH (12:24)
--- NOTE | 2017-05-25 13:58 | CP.PCM.CON ---
History of Present Illness - History of Present Illness History of Present Illness: This 76-year-old male was admitted via the emergency department with pneumonia and sepsis syndrome. Initial chest x-ray did not reveal any pulmonary infiltrate but follow-up chest x-rays as well as CAT scan showed a necrotizing infiltrate in the area of the lingular segment of the left lung. He was placed on antibiotic therapy to cover for a nosocomial pneumonia and recovered relatively smoothly. He did have some dark tinged sputum which he was expectorating and samples for cytology were requested 3. 2 samples were sent to the laboratory which showed acute inflammatory cells and no malignancy. Clinically he improved although radiographically the filtrate was still present. He was discharged to transitional care to continue antibiotic therapy and receive physical therapy as well. He has been followed at [facility] for the past few years because of an initial bronchoscopy which was performed here because of a nodule in the right upper lobe. 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 He did go over to [facility] where no primary tumor was ever discovered. He had been followed there and underwent mediastinoscopy and resection of a nodule in the contralateral lung and then placed on prednisone for organizing pneumonia. He has routine follow-ups and has had new nodules which appear on his current CT scan of the chest for which she is being closely monitored. During this admission he did have positive troponins which were followed by cardiology and felt to not indicate an acute myocardial infarction. He has a past cigarette smoker who discontinued his aberrant number of years ago. Alcohol intake has been social only. There is occasional remote cannabis use. Past Patient History - Past Medical History & Family History Past Medical History?: Yes - Past Social History Smoking Status: Former Smoker Chewing Tobacco Use: No Cigar Use: No Alcohol: Occasional Drugs: Denies Home Situation {Lives}: With Family - CARDIAC Hx Atrial Fibrillation: Yes Hx Hypercholesterolemia: Yes Hx Hypertension: Yes - PULMONARY Hx Chronic Obstructive Pulmonary Disease (COPD): Yes Hx Emphysema: Yes Hx Pneumonia: Yes Other/Comment: Multiple pulmonary nodules. - NEUROLOGICAL Hx Neurological Disorder: No - HEENT Hx HEENT Problems: No - RENAL Hx Chronic Kidney Disease: Yes - ENDOCRINE/METABOLIC Hx Diabetes Mellitus Type 2: Yes - HEMATOLOGICAL/ONCOLOGICAL Hx Blood Disorders: No Hx Human Immunodeficiency Virus (HIV): No - INTEGUMENTARY Hx Dermatological Problems: No - MUSCULOSKELETAL/RHEUMATOLOGICAL Hx Musculoskeletal Disorders: No Hx Falls: No - GASTROINTESTINAL Hx Gastrointestinal Disorders: No - GENITOURINARY/GYNECOLOGICAL Hx Genitourinary Disorders: Yes Hx Prostate Problems: Yes - PSYCHIATRIC Hx Substance Use: No - SURGICAL HISTORY Hx Surgeries: Yes Other/Comment: LUNG SX . BACK SX - ANESTHESIA Hx Anesthesia: Yes Hx Anesthesia Reactions: No Hx Malignant Hyperthermia: No Meds Allergies/Adverse Reactions: Allergies Allergy/AdvReac Type Severity Reaction Status Date / Time hydromorphone Allergy Mild RASH Verified 05/18/17 11:44 - Medications Medications: Current Medications Acetylcysteine (Mucomyst 10% 4ml) 2 ml IH RBID [facility] Atorvastatin Calcium (Lipitor) 40 mg PO DAILY@2100 [facility] Last Admin: 05/24/17 21:21 Dose: 40 mg Dextrose (Dextrose 50% Inj) 0 ml IV STAT PRN; Protocol PRN Reason: Hypoglycemia Protocol Dextrose (Glutose 15) 0 gm PO ONCE PRN; Protocol PRN Reason: Hypoglycemia Protocol Digoxin (Digoxin) 0.125 mg PO DAILY [facility] Last Admin: 05/25/17 12:24 Dose: 0.125 mg Emollient Ointment (Vaseline Oint) 1 pkt TOP TID [facility] Last Admin: 05/25/17 12:30 Dose: Not Given Finasteride (Proscar) 5 mg PO DAILY [facility] Last Admin: 05/25/17 08:59 Dose: 5 mg Gabapentin (Neurontin) 300 mg PO HS [facility] Last Admin: 05/24/17 21:21 Dose: 300 mg Glucagon (Glucagen Diagnostic Kit) 0 mg IM STAT PRN; Protocol PRN Reason: Hypoglycemia Protocol Piperacillin Sod/Tazobactam (Sod 3.375 gm/ Sodium Chloride) 100 mls @ 100 mls/ hr IVPB Q6 [facility] PRN Reason: Protocol Last Admin: 05/25/17 10:50 Dose: 100 mls/hr Insulin Detemir (Levemir) 10 units SC HS [facility] Last Admin: 05/24/17 21:32 Dose: Not Given Insulin Human Regular (Humulin R) 0 units SC ACHS [facility] PRN Reason: Protocol Last Admin: 05/25/17 11:45 Dose: 3 units Levalbuterol HCl (Xopenex) 1.25 mg INH RQ8 PRN PRN Reason: Shortness of Breath Losartan Potassium (Cozaar) 50 mg PO DAILY [facility] Last Admin: 03/22/18 12:24 Dose: 50 mg Repaglinide (Prandin) 2 mg PO TID [facility] Last Admin: 05/25/17 12:26 Dose: 2 mg Fluticasone/Salmeterol (Advair Diskus 500/50) 1 puff IH Q12 [facility] Last Admin: 05/25/17 08:57 Dose: 1 puff Tiotropium [place] (Spiriva) 18 mcg INH DAILY [facility] Last Admin: 05/25/17 09:00 Dose: 18 mcg Warfarin Sodium (Coumadin) 5 mg PO QD5 [facility] PRN Reason: Protocol Stop: 05/25/17 17:01 Physical Exam - Additional Findings Additional findings: Thin but well-developed male in no acute distress, seated upright in bed. Memory is intact, speech is fluent, mild generalized weakness of the lower extremities is noted. No focal motor weakness otherwise elicited. Pharynx is pink and mucous membranes are moist. Neck is supple and trachea is midline. No neck vein distention or carotid bruit. No dullness on chest percussion. Equal expansion. Breath sounds are diminished bilaterally. Audible wheezes are appreciated. No bronchial breath sounds. Rare dry rales are heard in the lower lobes. No rhonchi or rub. Heart sounds are distant. Rhythm is irregularly irregular. Abdomen is soft and nontender without palpable HSM. Normal bowel sounds. No CVA tenderness. Peripheral pulses are intact and there is trace edema at the right ankle. No cyanosis. No calf tenderness. Results - Vital Signs Recent Vital Signs: Last Vital Signs Temp 97.0 F L 05/25/17 07:43 Pulse 79 05/25/17 12:24 Resp 20 05/25/17 07:43 BP 144/73 05/25/17 12:24 Pulse Ox 97 05/25/17 07:43 - Labs Labs: Laboratory Results - last 24 hr 05/24/17 05/24/17 05/24/17 15:25 20:16 21:12 PT INR POC Glucose (mg/dL) 217 H 62 L 139 H 05/25/17 05/25/17 05/25/17 05:10 05:54 10:41 PT 22.9 H D INR 2.0 H D POC Glucose (mg/dL) 119 H 205 H Assessment & Plan (1) Pneumonia Status: Acute Priority: High (2) Sepsis due to pneumonia Status: Acute Priority: High (3) COPD (chronic obstructive pulmonary disease) Status: Chronic Priority: High (4) Pulmonary nodules/lesions, multiple Status: Chronic Priority: High - Assessment and Plan (Free Text) Plan: Continue current medical regimen unchanged. Repeat chest x-ray. Follow-up at [facility] after discharge. Repeat CT thorax will be deferred to [facility]. - Date & Time Date: 05/25/17 Time: 13:57
[2017-05-25] MEDS: Acetylcysteine 10% 4 ML IH SCH (19:45)
[2017-05-25] MEDS: Levalbuterol 1.25 MG/3 ML Inhal Soln UD INH PRN (19:45)
[2017-05-25] MEDS: Insulin Detemir 100 Units/ml Inj SC SCH (21:02)
[2017-05-25] MEDS: guaiFENesin 600 mg ER Tab PO SCH (21:03)
[2017-05-26] MEDS: Piperacillin/Tazobact 3.375 GM in Sodium Chloride 0.9% 100 ML IVPB SCH ×4 (04:58→21:36)
--- NOTE | 2017-05-26 06:43 | CP.PCM.PN ---
Objective - Vital Signs/Intake and Output Vital Signs (last 24 hours): Temp Pulse Resp BP Pulse Ox 98.1 F 82 20 150/77 98 05/25/17 20:21 05/25/17 20:21 05/25/17 20:21 05/25/17 20:21 05/25/17 20:21 - Medications Medications: Current Medications Acetylcysteine (Mucomyst 10% 4ml) 2 ml IH RBID [facility] Last Admin: 05/25/17 19:45 Dose: 2 ml Atorvastatin Calcium (Lipitor) 40 mg PO DAILY@2100 [facility] Last Admin: 05/25/17 21:02 Dose: 40 mg Dextrose (Dextrose 50% Inj) 0 ml IV STAT PRN; Protocol PRN Reason: Hypoglycemia Protocol Dextrose (Glutose 15) 0 gm PO ONCE PRN; Protocol PRN Reason: Hypoglycemia Protocol Digoxin (Digoxin) 0.125 mg PO DAILY [facility] Last Admin: 05/25/17 12:24 Dose: 0.125 mg Emollient Ointment (Vaseline Oint) 1 pkt TOP TID [facility] Last Admin: 05/25/17 16:58 Dose: Not Given Finasteride (Proscar) 5 mg PO DAILY [facility] Last Admin: 05/25/17 08:59 Dose: 5 mg Gabapentin (Neurontin) 300 mg PO HS [facility] Last Admin: 05/25/17 21:03 Dose: 300 mg Glucagon (Glucagen Diagnostic Kit) 0 mg IM STAT PRN; Protocol PRN Reason: Hypoglycemia Protocol Guaifenesin (Mucinex [place]) 600 mg PO Q12 [facility] Last Admin: 05/25/17 21:03 Dose: 600 mg Piperacillin Sod/Tazobactam (Sod 3.375 gm/ Sodium Chloride) 100 mls @ 100 mls/ hr IVPB Q6 [facility] PRN Reason: Protocol Last Admin: 05/26/17 04:58 Dose: 100 mls/hr Insulin Detemir (Levemir) 10 units SC HS [facility] Last Admin: 05/25/17 21:02 Dose: 10 units Insulin Human Regular (Humulin R) 0 units SC ACHS [facility] PRN Reason: Protocol Last Admin: 05/25/17 21:01 Dose: Not Given Levalbuterol HCl (Xopenex) 1.25 mg INH RQ8 PRN PRN Reason: Shortness of Breath Last Admin: 05/25/17 19:45 Dose: 1.25 mg Losartan Potassium (Cozaar) 50 mg PO DAILY [facility] Last Admin: 05/25/17 12:24 Dose: 50 mg Repaglinide (Prandin) 2 mg PO TID [facility] Last Admin: 05/25/17 16:58 Dose: 2 mg Fluticasone/Salmeterol (Advair Diskus 500/50) 1 puff IH Q12 [facility] Last Admin: 05/25/17 21:01 Dose: 1 puff Tiotropium [place] (Spiriva) 18 mcg INH DAILY [facility] Last Admin: 05/25/17 09:00 Dose: 18 mcg - Labs Labs: PT 22.9 Seconds (9.8-13.1) H D 05/25/17 05:54 INR 2.0 (0.9-1.2) H D 05/25/17 05:54
[2017-05-26 06:56] LABS: INR 1.9 (0.9-1.2); PROTHROMBIN TIME 21.6 Seconds (9.8-13.1)
[2017-05-26] MEDS: Insulin Regular 100 units/ml SC SCH ×4 (07:04→21:53)
[2017-05-26] MEDS: Fluticasone-Salmeterol 500-50mcg Diskus IH SCH ×2 (08:28→20:56)
[2017-05-26] MEDS: Petrolatum UD PAK TOP SCH ×3 (08:28→17:45)
[2017-05-26] MEDS: Digoxin 125 mcg (0.125 mg) Tab PO SCH (08:29)
[2017-05-26] MEDS: guaiFENesin 600 mg ER Tab PO SCH ×2 (08:29→20:56)
[2017-05-26] MEDS: Tiotropium 18 mcg Cap For Inhalation INH SCH (08:29)
[2017-05-26 08:31] LABS: ALBUMIN 3.4 g/dL (3.5-5.0); ALT/SGPT 75 U/L (21-72); AST/SGOT 61 U/L (17-59); BLOOD UREA NITROGEN 17 mg/dl (9-20); CALCIUM 9.6 mg/dL (8.4-10.2); GFR AFRICAN-AMERICAN > 60; GFR NON-AFRICAN AMERICAN > 60
[2017-05-26] MEDS: Acetylcysteine 10% 4 ML IH SCH ×2 (08:58→19:22)
--- NOTE | 2017-05-26 09:14 | CP.PCM.PN ---
Subjective - Date & Time of Evaluation Date of Evaluation: 05/26/17 Time of Evaluation: 08:40 - Subjective Subjective: Quite symptomfree Has had 400 mg of Trandate (labetelol) at 6 PM yesterday HR 84 BPM, reg BP 156/96 mm Hg Chest clear, heart sounds pure May go home taking 400 mg of Labetalol TID and see Dr Ross in th eoffice next week Objective - Vital Signs/Intake and Output Vital Signs (last 24 hours): Temp Pulse Resp BP Pulse Ox 97.3 F L 93 H 18 155/80 H 97 05/26/17 07:56 05/26/17 08:29 05/26/17 07:56 05/26/17 08:29 05/26/17 07:56 - Medications Medications: Current Medications Acetylcysteine (Mucomyst 10% 4ml) 2 ml IH RBID [facility] Last Admin: 05/26/17 08:58 Dose: Not Given Atorvastatin Calcium (Lipitor) 40 mg PO DAILY@2100 [facility] Last Admin: 05/25/17 21:02 Dose: 40 mg Dextrose (Dextrose 50% Inj) 0 ml IV STAT PRN; Protocol PRN Reason: Hypoglycemia Protocol Dextrose (Glutose 15) 0 gm PO ONCE PRN; Protocol PRN Reason: Hypoglycemia Protocol Digoxin (Digoxin) 0.125 mg PO DAILY [facility] Last Admin: 05/26/17 08:29 Dose: 0.125 mg Emollient Ointment (Vaseline Oint) 1 pkt TOP TID [facility] Last Admin: 05/26/17 08:28 Dose: 1 pkt Finasteride (Proscar) 5 mg PO DAILY [facility] Last Admin: 05/26/17 08:31 Dose: 5 mg Gabapentin (Neurontin) 300 mg PO HS [facility] Last Admin: 05/25/17 21:03 Dose: 300 mg Glucagon (Glucagen Diagnostic Kit) 0 mg IM STAT PRN; Protocol PRN Reason: Hypoglycemia Protocol Guaifenesin (Mucinex [place]) 600 mg PO Q12 [facility] Last Admin: 05/26/17 08:29 Dose: 600 mg Piperacillin Sod/Tazobactam (Sod 3.375 gm/ Sodium Chloride) 100 mls @ 100 mls/ hr IVPB Q6 [facility] PRN Reason: Protocol Last Admin: 05/26/17 04:58 Dose: 100 mls/hr Insulin Detemir (Levemir) 10 units SC HS [facility] Last Admin: 05/25/17 21:02 Dose: 10 units Insulin Human Regular (Humulin R) 0 units SC ACHS [facility] PRN Reason: Protocol Last Admin: 05/26/17 07:04 Dose: Not Given Levalbuterol HCl (Xopenex) 1.25 mg INH RQ8 PRN PRN Reason: Shortness of Breath Last Admin: 05/25/17 19:45 Dose: 1.25 mg Losartan Potassium (Cozaar) 50 mg PO DAILY [facility] Last Admin: 05/26/17 08:29 Dose: 50 mg Repaglinide (Prandin) 2 mg PO TID [facility] Last Admin: 05/26/17 08:29 Dose: 2 mg Fluticasone/Salmeterol (Advair Diskus 500/50) 1 puff IH Q12 [facility] Last Admin: 05/26/17 08:28 Dose: 1 puff Tiotropium [place] (Spiriva) 18 mcg INH DAILY [facility] Last Admin: 05/26/17 08:29 Dose: 18 mcg Warfarin Sodium (Coumadin) 5 mg PO QD5 [facility] PRN Reason: Protocol Stop: 05/26/17 17:01 - Labs Labs: 05/26/17 05:45 PT 21.6 Seconds (9.8-13.1) H 05/26/17 05:45 INR 1.9 (0.9-1.2) H 05/26/17 05:45
--- NOTE | 2017-05-26 09:17 | CP.PCM.PN ---
Subjective - Date & Time of Evaluation Date of Evaluation: 05/26/17 Time of Evaluation: 08:30 - Subjective Subjective: Sitting OOB, did well at PT yesterday HR 68 BPM, irreg BP 160/80 mm HG Doing well at PT No signs of CHF HCTZ added to pt's antihypertensive Rx Warfarin ordered for today Objective - Vital Signs/Intake and Output Vital Signs (last 24 hours): Temp Pulse Resp BP Pulse Ox 97.3 F L 93 H 18 155/80 H 97 05/26/17 07:56 05/26/17 08:29 05/26/17 07:56 05/26/17 08:29 05/26/17 07:56 - Medications Medications: Current Medications Acetylcysteine (Mucomyst 10% 4ml) 2 ml IH RBID [facility] Last Admin: 05/26/17 08:58 Dose: Not Given Atorvastatin Calcium (Lipitor) 40 mg PO DAILY@2100 [facility] Last Admin: 05/25/17 21:02 Dose: 40 mg Dextrose (Dextrose 50% Inj) 0 ml IV STAT PRN; Protocol PRN Reason: Hypoglycemia Protocol Dextrose (Glutose 15) 0 gm PO ONCE PRN; Protocol PRN Reason: Hypoglycemia Protocol Digoxin (Digoxin) 0.125 mg PO DAILY [facility] Last Admin: 05/26/17 08:29 Dose: 0.125 mg Emollient Ointment (Vaseline Oint) 1 pkt TOP TID [facility] Last Admin: 05/26/17 08:28 Dose: 1 pkt Finasteride (Proscar) 5 mg PO DAILY [facility] Last Admin: 05/26/17 08:31 Dose: 5 mg Gabapentin (Neurontin) 300 mg PO HS [facility] Last Admin: 05/25/17 21:03 Dose: 300 mg Glucagon (Glucagen Diagnostic Kit) 0 mg IM STAT PRN; Protocol PRN Reason: Hypoglycemia Protocol Guaifenesin (Mucinex La) 600 mg PO Q12 [facility] Last Admin: 05/26/17 08:29 Dose: 600 mg Hydrochlorothiazide (Microzide) 12.5 mg PO DAILY [facility] Piperacillin Sod/Tazobactam (Sod 3.375 gm/ Sodium Chloride) 100 mls @ 100 mls/ hr IVPB Q6 [facility] PRN Reason: Protocol Last Admin: 05/26/17 04:58 Dose: 100 mls/hr Insulin Detemir (Levemir) 10 units SC [facility] Last Admin: 05/25/17 21:02 Dose: 10 units Insulin Human Regular (Humulin R) 0 units SC ACHS [facility] PRN Reason: Protocol Last Admin: 05/26/17 07:04 Dose: Not Given Levalbuterol HCl (Xopenex) 1.25 mg INH RQ8 PRN PRN Reason: Shortness of Breath Last Admin: 05/25/17 19:45 Dose: 1.25 mg Losartan Potassium (Cozaar) 50 mg PO DAILY [facility] Last Admin: 05/26/17 08:29 Dose: 50 mg Repaglinide (Prandin) 2 mg PO TID [facility] Last Admin: 05/26/17 08:29 Dose: 2 mg Fluticasone/Salmeterol (Advair Diskus 500/50) 1 puff IH Q12 [facility] Last Admin: 05/26/17 08:28 Dose: 1 puff Tiotropium [place] (Spiriva) 18 mcg INH DAILY [facility] Last Admin: 05/26/17 08:29 Dose: 18 mcg Warfarin Sodium (Coumadin) 5 mg PO QD5 [facility] PRN Reason: Protocol Stop: 05/26/17 17:01 - Labs Labs: 05/26/17 05:45 PT 21.6 Seconds (9.8-13.1) H 05/26/17 05:45 INR 1.9 (0.9-1.2) H 05/26/17 05:45
--- NOTE | 2017-05-26 09:54 | CARD ---
APPROVED REPORT EKG Measurement Heart [id number] <Conclusion> Atrial fibrillation Septal infarct, age undetermined Abnormal ECG
--- NOTE | 2017-05-26 09:55 | RAD ---
HISTORY: pneumonia COMPARISON: Comparison made with prior chest radiographs dated 05/23/2017 TECHNIQUE: Chest PA and lateral FINDINGS: LUNGS: Hyperinflation consistent with underlying emphysema. Left basilar effusion with lower lobe atelectasis and or infiltrate. Curvilinear atelectasis -scarring changes again noted in the right upper lung field extending to the pleural surface as well-aligned left suprahilar region. There appears to be some linear scarring/tenting right lung base extending the graciela diaphragmatic surface. Bullous changes both lung bases poorly seen Metallic clips again noted overlying the left lateral upper lung field. PLEURA: As above. No apparent Pneumothorax apparent. CARDIOVASCULAR: Cardiomediastinal silhouette stable OSSEOUS STRUCTURES: No significant abnormalities. VISUALIZED UPPER ABDOMEN: Normal. OTHER FINDINGS: None. IMPRESSION: Hyperinflation consistent with underlying emphysema. Left basilar effusion with lower lobe atelectasis and or infiltrate. atelectasis -scarring changes again noted in the upper and lower lobes bilaterally. There appears to be some linear scarring/tenting right lung base extending the graciela diaphragmatic surface. Bullous changes and both the lung bases poorly seen
[2017-05-26 17:26] VITALS: RESP 20
[2017-05-26] MEDS: Levalbuterol 1.25 MG/3 ML Inhal Soln UD INH PRN (19:22)
[2017-05-26] MEDS: Insulin Detemir 100 Units/ml Inj SC SCH (21:36)
[2017-05-27] MEDS: Piperacillin/Tazobact 3.375 GM in Sodium Chloride 0.9% 100 ML IVPB SCH ×4 (04:07→21:13)
[2017-05-27] MEDS: Insulin Regular 100 units/ml SC SCH ×4 (06:34→21:10)
[2017-05-27 07:38] LABS: PROTHROMBIN TIME 22.5 Seconds (9.8-13.1)
[2017-05-27] MEDS: Levalbuterol 1.25 MG/3 ML Inhal Soln UD INH PRN ×2 (07:41→17:29)
[2017-05-27] MEDS: Acetylcysteine 10% 4 ML IH SCH ×3 (07:41→19:20)
[2017-05-27] MEDS: Fluticasone-Salmeterol 500-50mcg Diskus IH SCH ×2 (08:13→21:09)
[2017-05-27] MEDS: Digoxin 125 mcg (0.125 mg) Tab PO SCH (08:14)
[2017-05-27] MEDS: Tiotropium 18 mcg Cap For Inhalation INH SCH (08:14)
[2017-05-27] MEDS: guaiFENesin 600 mg ER Tab PO SCH ×2 (08:15→21:17)
[2017-05-27] MEDS: Petrolatum UD PAK TOP SCH ×3 (08:17→16:40)
--- NOTE | 2017-05-27 12:34 | CP.PCM.PN ---
Subjective - Date & Time of Evaluation Date of Evaluation: 05/27/17 Time of Evaluation: 12:31 - Subjective Subjective: Appears comfortable. Seated on EOB eating lunch. Has an occasional cough with scant sputum. The sputum does have some blood admixed. His last chest x-ray shows good clearing of the lingular infiltrate. On exam there are only scattered dry rales heard in both lower lung sy. Will collect another sputum cytology if able. Will complete 10 days of antibiotic therapy for HCAP after tomorrow's doses. Objective - Vital Signs/Intake and Output Vital Signs (last 24 hours): Temp Pulse Resp BP Pulse Ox 97.2 F L 93 H 20 155/80 H 91 L 05/27/17 07:42 05/27/17 08:15 05/27/17 07:42 05/27/17 08:15 05/27/17 07:42 - Medications Medications: Current Medications Acetylcysteine (Mucomyst 10% 4ml) 2 ml IH RBID [facility] Last Admin: 05/27/17 07:41 Dose: 2 ml Atorvastatin Calcium (Lipitor) 40 mg PO DAILY@2100 [facility] Last Admin: 05/26/17 20:56 Dose: 40 mg Dextrose (Dextrose 50% Inj) 0 ml IV STAT PRN; Protocol PRN Reason: Hypoglycemia Protocol Dextrose (Glutose 15) 0 gm PO ONCE PRN; Protocol PRN Reason: Hypoglycemia Protocol Digoxin (Digoxin) 0.125 mg PO DAILY [facility] Last Admin: 05/27/17 08:14 Dose: 0.125 mg Emollient Ointment (Vaseline Oint) 1 pkt TOP TID [facility] Last Admin: 05/27/17 12:14 Dose: Not Given Finasteride (Proscar) 5 mg PO DAILY [facility] Last Admin: 05/27/17 08:15 Dose: 5 mg Gabapentin (Neurontin) 300 mg PO HS [facility] Last Admin: 05/26/17 21:50 Dose: 300 mg Glucagon (Glucagen Diagnostic Kit) 0 mg IM STAT PRN; Protocol PRN Reason: Hypoglycemia Protocol Guaifenesin (Mucinex La) 600 mg PO Q12 [facility] Last Admin: 05/27/17 08:15 Dose: 600 mg Hydrochlorothiazide (Microzide) 12.5 mg PO DAILY [facility] Last Admin: 05/27/17 08:14 Dose: 12.5 mg Piperacillin Sod/Tazobactam (Sod 3.375 gm/ Sodium Chloride) 100 mls @ 100 mls/ hr IVPB Q6 [facility] PRN Reason: Protocol Last Admin: 05/27/17 09:17 Dose: 100 mls/hr Insulin Detemir (Levemir) 10 units SC HS [facility] Last Admin: 05/26/17 21:36 Dose: 10 units Insulin Human Regular (Humulin R) 0 units SC ACHS [facility] PRN Reason: Protocol Last Admin: 05/27/17 12:13 Dose: Not Given Levalbuterol HCl (Xopenex) 1.25 mg INH RQ8 PRN PRN Reason: Shortness of Breath Last Admin: 05/27/17 07:41 Dose: 1.25 mg Losartan Potassium (Cozaar) 50 mg PO DAILY [facility] Last Admin: 05/27/17 08:15 Dose: 50 mg Repaglinide (Prandin) 2 mg PO TID [facility] Last Admin: 05/27/17 12:13 Dose: 2 mg Fluticasone/Salmeterol (Advair Diskus 500/50) 1 puff IH Q12 [facility] Last Admin: 05/27/17 08:13 Dose: 1 unit Tiotropium [place] (Spiriva) 18 mcg INH DAILY [facility] Last Admin: 05/27/17 08:14 Dose: 18 mcg Warfarin Sodium (Coumadin) 5 mg PO QD5 [facility] PRN Reason: Protocol Stop: 05/27/17 17:01 - Labs Labs: 05/26/17 05:45 PT 22.5 Seconds (9.8-13.1) H 05/27/17 05:10 INR 2.0 (0.9-1.2) H 05/27/17 05:10 Assessment and Plan (1) Pneumonia Status: Acute (2) Sepsis due to pneumonia Status: Acute (3) COPD (chronic obstructive pulmonary disease) Status: Chronic (4) Pulmonary nodules/lesions, multiple Status: Chronic
--- NOTE | 2017-05-27 13:05 | CP.PCM.PCO ---
Addendum Addendum: 05/27/17 13:02 Pt seen at bedside; appears comfortable with no new complaints/issues. Warfarin 5 mg ordered for today. Will continue to monitor INR.
[2017-05-27 13:29] LABS: HEMOGLOBIN 13.8 g/dL (12.0-18.0); MEAN CORPUSCULAR HEMOGLOBIN 31.8 pg (27.0-31.0); MEAN CORPUSCULAR HGB CONC 34.2 g/dL (33.0-37.0); RBC 4.35 Mil/uL (4.40-5.90); WHITE BLOOD COUNT 8.1 K/uL (4.8-10.8)
[2017-05-27] MEDS: Insulin Detemir 100 Units/ml Inj SC SCH (21:10)
[2017-05-28] MEDS: Piperacillin/Tazobact 3.375 GM in Sodium Chloride 0.9% 100 ML IVPB SCH ×4 (05:06→21:41)
[2017-05-28] MEDS: Acetylcysteine 10% 4 ML IH SCH ×2 (07:04→19:13)
[2017-05-28] MEDS: Levalbuterol 1.25 MG/3 ML Inhal Soln UD INH PRN ×2 (07:04→19:13)
[2017-05-28 07:19] LABS: PROTHROMBIN TIME 22.9 Seconds (9.8-13.1)
[2017-05-28] MEDS: Insulin Regular 100 units/ml SC SCH ×4 (08:04→21:38)
[2017-05-28] MEDS: Petrolatum UD PAK TOP SCH ×3 (08:04→16:11)
[2017-05-28] MEDS: Fluticasone-Salmeterol 500-50mcg Diskus IH SCH ×2 (08:05→21:37)
[2017-05-28] MEDS: Digoxin 125 mcg (0.125 mg) Tab PO SCH (08:07)
[2017-05-28] MEDS: Tiotropium 18 mcg Cap For Inhalation INH SCH (08:07)
[2017-05-28] MEDS: guaiFENesin 600 mg ER Tab PO SCH ×2 (08:08→21:40)
[2017-05-28] MEDS: Insulin Detemir 100 Units/ml Inj SC SCH (21:39)
[2017-05-29] MEDS: Piperacillin/Tazobact 3.375 GM in Sodium Chloride 0.9% 100 ML IVPB SCH (05:06)
[2017-05-29] MEDS: Insulin Regular 100 units/ml SC SCH ×4 (06:33→21:43)
[2017-05-29 07:00] LABS: INR 2.4 (0.9-1.2); PROTHROMBIN TIME 28.1 Seconds (9.8-13.1)
--- NOTE | 2017-05-29 07:03 | CP.PCM.PN ---
Subjective - Date & Time of Evaluation Date of Evaluation: 05/29/17 Time of Evaluation: 07:40 - Subjective Subjective: Pt seen and evaluated at bedside this am; eating breakfast. Reports no acute events overnight, states he feels stronger, has been participating in physical therapy. Completed course of antibiotics. Objective - Vital Signs/Intake and Output Vital Signs (last 24 hours): Temp Pulse Resp BP Pulse Ox 97.7 F 68 20 155/51 H 98 05/28/17 19:41 05/28/17 19:41 05/28/17 19:41 05/28/17 19:41 05/28/17 19:41 - Medications Medications: Current Medications Acetylcysteine (Mucomyst 10% 4ml) 2 ml IH RBID [facility] Last Admin: 05/28/17 19:13 Dose: 2 ml Atorvastatin Calcium (Lipitor) 40 mg PO DAILY@2100 [facility] Last Admin: 05/28/17 21:40 Dose: 40 mg Dextrose (Dextrose 50% Inj) 0 ml IV STAT PRN; Protocol PRN Reason: Hypoglycemia Protocol Dextrose (Glutose 15) 0 gm PO ONCE PRN; Protocol PRN Reason: Hypoglycemia Protocol Digoxin (Digoxin) 0.125 mg PO DAILY [facility] Last Admin: 05/28/17 08:07 Dose: 0.125 mg Emollient Ointment (Vaseline Oint) 1 pkt TOP TID [facility] Last Admin: 05/28/17 16:11 Dose: Not Given Finasteride (Proscar) 5 mg PO DAILY [facility] Last Admin: 05/28/17 08:08 Dose: 5 mg Gabapentin (Neurontin) 300 mg PO HS [facility] Last Admin: 05/28/17 21:40 Dose: 300 mg Glucagon (Glucagen Diagnostic Kit) 0 mg IM STAT PRN; Protocol PRN Reason: Hypoglycemia Protocol Guaifenesin (Mucinex La) 600 mg PO Q12 [facility] Last Admin: 05/28/17 21:40 Dose: 600 mg Hydrochlorothiazide (Microzide) 12.5 mg PO DAILY [facility] Last Admin: 05/28/17 08:07 Dose: 12.5 mg Piperacillin Sod/Tazobactam (Sod 3.375 gm/ Sodium Chloride) 100 mls @ 100 mls/ hr IVPB Q6 [facility] PRN Reason: Protocol Last Admin: 05/29/17 05:06 Dose: 100 mls/hr Insulin Detemir (Levemir) 10 units SC HS [facility] Last Admin: 05/28/17 21:39 Dose: 10 units Insulin Human Regular (Humulin R) 0 units SC ACHS [facility] PRN Reason: Protocol Last Admin: 05/29/17 06:33 Dose: Not Given Levalbuterol HCl (Xopenex) 1.25 mg INH RQ8 PRN PRN Reason: Shortness of Breath Last Admin: 05/28/17 19:13 Dose: 1.25 mg Losartan Potassium (Cozaar) 50 mg PO DAILY [facility] Last Admin: 05/28/17 08:07 Dose: 50 mg Repaglinide (Prandin) 2 mg PO TID [facility] Last Admin: 05/28/17 16:58 Dose: 2 mg Fluticasone/Salmeterol (Advair Diskus 500/50) 1 puff IH Q12 [facility] Last Admin: 05/28/17 21:37 Dose: 1 unit Tiotropium [place] (Spiriva) 18 mcg INH DAILY [facility] Last Admin: 05/28/17 08:07 Dose: 18 mcg - Labs Labs: 05/27/17 13:15 05/26/17 05:45 PT 28.1 Seconds (9.8-13.1) H D 05/29/17 05:50 INR 2.4 (0.9-1.2) H 05/29/17 05:50 - Constitutional Appears: Non-toxic, No Acute Distress - Head Exam Head Exam: NORMOCEPHALIC - Eye Exam Eye Exam: Normal appearance - ENT Exam ENT Exam: Mucous Membranes Moist - Neck Exam Neck Exam: Full ROM - Respiratory Exam Respiratory Exam: NORMAL BREATHING PATTERN. absent: Respiratory Distress - Cardiovascular Exam Cardiovascular Exam: Irregular Rhythm - GI/Abdominal Exam GI & Abdominal Exam: Soft, Normal Bowel Sounds - Extremities Exam Extremities Exam: Normal Inspection. absent: Calf Tenderness, Pedal Edema - Back Exam Back Exam: NORMAL INSPECTION - Neurological Exam Neurological Exam: Alert, Awake, Oriented x3 - Psychiatric Exam Psychiatric exam: Normal Affect, Normal Mood - Skin Skin Exam: Dry, Normal Color, Warm Assessment and Plan - Assessment and Plan (Free Text) Assessment: 76 yo M with PMH COPD, pneumonia, HLD, HTN, diabetes mellitus admitted due to TCU for antibiotics and rehab/physical therapy. Completed course of antibiotics. Plan: # Pneumonia - Pulmonology consulted, Dr. Hameed. - Completed course of zosyn # COPD - Pulmonology consult- Dr. 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
[2017-05-29] MEDS: Acetylcysteine 10% 4 ML IH SCH ×2 (07:30→19:14)
[2017-05-29] MEDS: Levalbuterol 1.25 MG/3 ML Inhal Soln UD INH PRN ×2 (07:30→19:14)
[2017-05-29] MEDS: Petrolatum UD PAK TOP SCH ×3 (08:56→16:36)
[2017-05-29] MEDS: Tiotropium 18 mcg Cap For Inhalation INH SCH (08:59)
[2017-05-29] MEDS: Digoxin 125 mcg (0.125 mg) Tab PO SCH (09:00)
[2017-05-29] MEDS: guaiFENesin 600 mg ER Tab PO SCH ×2 (09:00→21:45)
[2017-05-29] MEDS: Fluticasone-Salmeterol 500-50mcg Diskus IH SCH ×2 (09:01→21:43)
--- NOTE | 2017-05-29 09:26 | CP.PCM.PN ---
Subjective - Date & Time of Evaluation Date of Evaluation: 05/29/17 Time of Evaluation: 08:50 - Subjective Subjective: Has been making good progress during PT Cough and expectoration less No chills or fever A Fib at 74 BPM, BP 124/64 mm Hg INR 2.4 (Warfarin [id number]) Holter today to R/O Bradyarrhythmias Objective - Vital Signs/Intake and Output Vital Signs (last 24 hours): Temp Pulse Resp BP Pulse Ox 97.0 F L 61 20 122/64 99 05/29/17 07:35 05/29/17 09:00 05/29/17 07:35 05/29/17 09:00 05/29/17 07:35 - Medications Medications: Current Medications Acetylcysteine (Mucomyst 10% 4ml) 2 ml IH RBID [facility] Last Admin: 05/29/17 07:30 Dose: 2 ml Atorvastatin Calcium (Lipitor) 40 mg PO DAILY@2100 [facility] Last Admin: 05/28/17 21:40 Dose: 40 mg Dextrose (Dextrose 50% Inj) 0 ml IV STAT PRN; Protocol PRN Reason: Hypoglycemia Protocol Dextrose (Glutose 15) 0 gm PO ONCE PRN; Protocol PRN Reason: Hypoglycemia Protocol Digoxin (Digoxin) 0.125 mg PO DAILY [facility] Last Admin: 05/29/17 09:00 Dose: 0.125 mg Emollient Ointment (Vaseline Oint) 1 pkt TOP TID [facility] Last Admin: 05/29/17 08:56 Dose: Not Given Finasteride (Proscar) 5 mg PO DAILY [facility] Last Admin: 05/29/17 09:00 Dose: 5 mg Gabapentin (Neurontin) 300 mg PO HS [facility] Last Admin: 05/28/17 21:40 Dose: 300 mg Glucagon (Glucagen Diagnostic Kit) 0 mg IM STAT PRN; Protocol PRN Reason: Hypoglycemia Protocol Guaifenesin (Mucinex La) 600 mg PO Q12 [facility] Last Admin: 05/29/17 09:00 Dose: 600 mg Hydrochlorothiazide (Microzide) 12.5 mg PO DAILY [facility] Last Admin: 05/29/17 09:00 Dose: 12.5 mg Piperacillin Sod/Tazobactam (Sod 3.375 gm/ Sodium Chloride) 100 mls @ 100 mls/ hr IVPB Q6 [facility] PRN Reason: Protocol Last Admin: 05/29/17 05:06 Dose: 100 mls/hr Insulin Detemir (Levemir) 10 units SC HS [facility] Last Admin: 05/28/17 21:39 Dose: 10 units Insulin Human Regular (Humulin R) 0 units SC ACHS [facility] PRN Reason: Protocol Last Admin: 05/29/17 06:33 Dose: Not Given Levalbuterol HCl (Xopenex) 1.25 mg INH RQ8 PRN PRN Reason: Shortness of Breath Last Admin: 05/29/17 07:30 Dose: 1.25 mg Losartan Potassium (Cozaar) 50 mg PO DAILY [facility] Last Admin: 05/29/17 09:00 Dose: 50 mg Repaglinide (Prandin) 2 mg PO TID [facility] Last Admin: 05/29/17 09:00 Dose: 2 mg Fluticasone/Salmeterol (Advair Diskus 500/50) 1 puff IH Q12 [facility] Last Admin: 05/29/17 09:01 Dose: 1 unit Tiotropium [place] (Spiriva) 18 mcg INH DAILY [facility] Last Admin: 05/29/17 08:59 Dose: 18 mcg Warfarin Sodium (Coumadin) 2.5 mg PO QD5 [facility] PRN Reason: Protocol Stop: 05/29/17 17:01 - Labs Labs: 05/27/17 13:15 05/26/17 05:45 PT 28.1 Seconds (9.8-13.1) H D 05/29/17 05:50 INR 2.4 (0.9-1.2) H 05/29/17 05:50
[2017-05-29] MEDS: Simethicone 40 mg/0.6 ml Liquid (30 ml) PO PRN (20:08)
[2017-05-29] MEDS: Insulin Detemir 100 Units/ml Inj SC SCH (21:44)
[2017-05-30 06:29] LABS: INR 2.4 (0.9-1.2); PROTHROMBIN TIME 27.5 Seconds (9.8-13.1)
[2017-05-30] MEDS: Insulin Regular 100 units/ml SC SCH ×4 (06:32→21:24)
[2017-05-30] MEDS: Acetylcysteine 10% 4 ML IH SCH (07:54)
[2017-05-30] MEDS: Levalbuterol 1.25 MG/3 ML Inhal Soln UD INH PRN (07:54)
[2017-05-30] MEDS: Fluticasone-Salmeterol 500-50mcg Diskus IH SCH ×2 (08:09→21:23)
[2017-05-30] MEDS: guaiFENesin 600 mg ER Tab PO SCH ×2 (08:09→20:43)
[2017-05-30] MEDS: Simethicone 40 mg/0.6 ml Liquid (30 ml) PO PRN (08:10)
[2017-05-30] MEDS: Digoxin 125 mcg (0.125 mg) Tab PO SCH (08:11)
[2017-05-30] MEDS: Petrolatum UD PAK TOP SCH ×3 (08:12→17:06)
[2017-05-30] MEDS: Tiotropium 18 mcg Cap For Inhalation INH SCH (08:12)
[2017-05-30 08:19] VITALS: PULSE 74
--- NOTE | 2017-05-30 10:47 | CP.PCM.PN ---
Subjective - Date & Time of Evaluation Date of Evaluation: 05/30/17 Time of Evaluation: 10:42 - Subjective Subjective: Seated upright in bed, comfortable. Vital signs have remained stable. He has been afebrile the entire time on TCU. He denies di chest discomfort, cough or SOB. No dullness on chest percussion. Breath sounds are diminished equally in both lungs. Rare dry basal rales, no rhonchi, no wheezes or bronchial breath sounds. Has recovered from acute episode of pneumonia. Sputum cytologies have been negative X 3. Will have disc of current chest CT made for the patient. [place] [facility]. Medications likely will remain as they were prior to admission. Objective - Vital Signs/Intake and Output Vital Signs (last 24 hours): Temp Pulse Resp BP Pulse Ox 98.1 F 74 20 121/66 98 05/30/17 09:00 05/30/17 09:00 05/30/17 09:00 05/30/17 09:00 05/30/17 09:00 - Medications Medications: Current Medications Atorvastatin Calcium (Lipitor) 40 mg PO DAILY@2100 [facility] Last Admin: 05/29/17 21:46 Dose: 40 mg Dextrose (Dextrose 50% Inj) 0 ml IV STAT PRN; Protocol PRN Reason: Hypoglycemia Protocol Dextrose (Glutose 15) 0 gm PO ONCE PRN; Protocol PRN Reason: Hypoglycemia Protocol Digoxin (Digoxin) 0.125 mg PO DAILY [facility] Last Admin: 05/30/17 08:11 Dose: 0.125 mg Emollient Ointment (Vaseline Oint) 1 pkt TOP TID [facility] Last Admin: 05/30/17 08:12 Dose: Not Given Finasteride (Proscar) 5 mg PO DAILY [facility] Last Admin: 05/30/17 08:12 Dose: 5 mg Gabapentin (Neurontin) 300 mg PO HS [facility] Last Admin: 05/29/17 21:45 Dose: 300 mg Glucagon (Glucagen Diagnostic Kit) 0 mg IM STAT PRN; Protocol PRN Reason: Hypoglycemia Protocol Guaifenesin (Mucinex La) 600 mg PO Q12 [facility] Last Admin: 05/30/17 08:09 Dose: 600 mg Hydrochlorothiazide (Microzide) 12.5 mg PO DAILY [facility] Last Admin: 05/30/17 08:12 Dose: 12.5 mg Insulin Detemir (Levemir) 10 units SC HS [facility] Last Admin: 05/29/17 21:44 Dose: 10 units Insulin Human Regular (Humulin R) 0 units SC ACHS [facility] PRN Reason: Protocol Last Admin: 05/30/17 06:32 Dose: Not Given Levalbuterol HCl (Xopenex) 1.25 mg INH RQ8 PRN PRN Reason: Shortness of Breath Last Admin: 05/30/17 07:54 Dose: 1.25 mg Losartan Potassium (Cozaar) 50 mg PO DAILY [facility] Last Admin: 05/30/17 08:11 Dose: 50 mg Repaglinide (Prandin) 2 mg PO TIDWM [facility] Last Admin: 05/30/17 09:11 Dose: Not Given Fluticasone/Salmeterol (Advair Diskus 500/50) 1 puff IH Q12 [facility] Last Admin: 05/30/17 08:09 Dose: 1 unit Simethicone (Mylicon Liq) 40 mg PO QID PRN PRN Reason: Flatulence Last Admin: 05/30/17 08:10 Dose: 40 mg Tiotropium [place] (Spiriva) 18 mcg INH DAILY [facility] Last Admin: 05/30/17 08:12 Dose: 18 mcg Warfarin Sodium (Coumadin) 2.5 mg PO QD5 [facility] PRN Reason: Protocol Stop: 05/30/17 17:01 - Labs Labs: 05/27/17 13:15 05/26/17 05:45 PT 27.5 Seconds (9.8-13.1) H 05/30/17 05:45 INR 2.4 (0.9-1.2) H 05/30/17 05:45 Assessment and Plan (1) Pneumonia Status: Acute (2) Sepsis due to pneumonia Status: Resolved (3) COPD (chronic obstructive pulmonary disease) Status: Chronic (4) Pulmonary nodules/lesions, multiple Status: Chronic
[2017-05-30] MEDS: Insulin Detemir 100 Units/ml Inj SC SCH (21:24)
[2017-05-30 22:27] VITALS: PULSE 74
[2017-05-31 07:23] LABS: INR 1.7 (0.9-1.2); PROTHROMBIN TIME 19.5 Seconds (9.8-13.1)
[2017-05-31 07:51] VITALS: BP 145/74; TEMP 97.5; O2SAT 100
[2017-05-31] MEDS: Insulin Regular 100 units/ml SC SCH ×2 (08:05→11:59)
[2017-05-31] MEDS: Petrolatum UD PAK TOP SCH ×2 (08:05→12:00)
--- NOTE | 2017-05-31 08:17 | CP.PCM.DIS ---
Provider - Provider Date of Admission: 05/23/17 16:59 Attending physician: Viola Cnao MD Primary care physician: Dr. Tigre Galvez Consults: Cardiology- Dr. Last Pulmonology- Dr. 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 As per Dr. Hameed, pt has recovered from acute episode of pneumonia, and pt will return to [facility] for follow up after discharge. No changes to medications. 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 Pt was on home dose coumadin 5mg; [facility] with INR 3.7; coumadin dose adjusted during pt's hospital and TCU stay. Spoke with Dr. Last- pt is to take 2.5mg and 5mg doses on alternating days. Pt was also on home dose digoxin 0.25mg; it was noted during his admission to telemetry that he had several episodes of 2-3 second pauses between beats. As per cardio, digoxin was lowered to 0.125 mg, and pt underwent 24 hr Holter monitoring; as per Dr. Last , pt is to stop digoxin at this time. Dr. Last will give pt script for outpatient 24 hr Holter, and he will follow up in his private office. Hospital Course - Lab Results Lab Results: Most Recent Lab Values WBC 8.1 K/uL (4.8-10.8) 05/27/17 13:15 RBC 4.35 Mil/uL (4.40-5.90) L 05/27/17 13:15 Hgb 13.8 g/dL (12.0-18.0) 05/27/17 13:15 Hct 40.5 % (35.0-51.0) 05/27/17 13:15 MCV 93.0 fl (80.0-94.0) 05/27/17 13:15 MCH 31.8 pg (27.0-31.0) H 05/27/17 13:15 MCHC 34.2 g/dL (33.0-37.0) 05/27/17 13:15 RDW 13.0 % (11.5-14.5) 05/27/17 13:15 Plt Count 348 K/uL (130-400) 05/27/17 13:15 PT 19.5 Seconds (9.8-13.1) H D 05/31/17 05:35 INR 1.7 (0.9-1.2) H D 05/31/17 05:35 Sodium 140 mmol/l (132-148) 05/26/17 05:45 Potassium 3.9 MMOL/L (3.6-5.0) 05/26/17 05:45 Chloride 99 mmol/L (98-107) 05/26/17 05:45 Carbon Dioxide 32 mmol/L (22-30) H 05/26/17 05:45 Anion Gap 13 (10-20) 05/26/17 05:45 BUN 17 mg/dl (9-20) 05/26/17 05:45 Creatinine 0.8 mg/dl (0.8-1.5) 05/26/17 05:45 Est GFR ( Amer) > 60 05/26/17 05:45 Est GFR (Non-Af Amer) > 60 05/26/17 05:45 POC Glucose (mg/dL) 89 mg/dL (65-110) 05/31/17 06:32 Random Glucose 113 mg/dL (75-110) H 05/26/17 05:45 Calcium 9.6 mg/dL (8.4-10.2) 05/26/17 05:45 Total Bilirubin 0.7 mg/dl (0.2-1.3) 05/26/17 05:45 AST 61 U/L (17-59) H 05/26/17 05:45 ALT 75 U/L (21-72) H D 05/26/17 05:45 Alkaline Phosphatase 46 U/L (38-126) 05/26/17 05:45 Total Protein 6.7 G/DL (6.3-8.2) 05/26/17 05:45 Albumin 3.4 g/dL (3.5-5.0) L 05/26/17 05:45 Globulin 3.3 gm/dL (2.2-3.9) 05/26/17 05:45 Albumin/Globulin Ratio 1.0 (1.0-2.1) 05/26/17 05:45 - Hospital Course Hospital Course: Pt was admitted Discharge Exam - Head Exam Head Exam: NORMOCEPHALIC Discharge Plan - Follow Up Plan Condition: GOOD Disposition: HOME/ ROUTINE
[2017-05-31] MEDS: Fluticasone-Salmeterol 500-50mcg Diskus IH SCH (08:30)
[2017-05-31] MEDS: Tiotropium 18 mcg Cap For Inhalation INH SCH (08:31)
[2017-05-31] MEDS: Digoxin 125 mcg (0.125 mg) Tab PO SCH (08:31)
[2017-05-31] MEDS: guaiFENesin 600 mg ER Tab PO SCH (08:32)
--- NOTE | 2017-05-31 08:45 | CP.PCM.PN ---
Subjective - Date & Time of Evaluation Date of Evaluation: 05/31/17 Time of Evaluation: 08:25 - Subjective Subjective: Symptom free Doing well at PT Holter recording shows A Fib with a pause of 2.7 sec (multiple pauses exceed 2 sec) Will D/C Digoxin and repeat Holter as out pt in 7 days Script given for Losartan/HCT and a Holter recording Appt for Holter arranged Pt will see me in 2 wks in the office. Objective - Vital Signs/Intake and Output Vital Signs (last 24 hours): Temp Pulse Resp BP Pulse Ox 97.5 F L 74 20 145/74 100 05/31/17 07:50 05/31/17 08:31 05/31/17 07:50 05/31/17 08:31 05/31/17 07:50 - Medications Medications: Current Medications Atorvastatin Calcium (Lipitor) 40 mg PO DAILY@2100 [facility] Last Admin: 05/30/17 20:43 Dose: 40 mg Dextrose (Dextrose 50% Inj) 0 ml IV STAT PRN; Protocol PRN Reason: Hypoglycemia Protocol Dextrose (Glutose 15) 0 gm PO ONCE PRN; Protocol PRN Reason: Hypoglycemia Protocol Emollient Ointment (Vaseline Oint) 1 pkt TOP TID [facility] Last Admin: 05/31/17 08:05 Dose: Not Given Finasteride (Proscar) 5 mg PO DAILY [facility] Last Admin: 05/31/17 08:31 Dose: 5 mg Gabapentin (Neurontin) 300 mg PO HS [facility] Last Admin: 05/30/17 21:24 Dose: 300 mg Glucagon (Glucagen Diagnostic Kit) 0 mg IM STAT PRN; Protocol PRN Reason: Hypoglycemia Protocol Guaifenesin (Mucinex La) 600 mg PO Q12 [facility] Last Admin: 05/31/17 08:32 Dose: 600 mg Hydrochlorothiazide (Microzide) 12.5 mg PO DAILY [facility] Last Admin: 05/31/17 08:32 Dose: 12.5 mg Insulin Detemir (Levemir) 10 units SC [facility] Last Admin: 05/30/17 21:24 Dose: 10 units Insulin Human Regular (Humulin R) 0 units SC [facility] PRN Reason: Protocol Last Admin: 05/31/17 08:05 Dose: Not Given Levalbuterol HCl (Xopenex) 1.25 mg INH RQ8 PRN PRN Reason: Shortness of Breath Last Admin: 05/30/17 07:54 Dose: 1.25 mg Losartan Potassium (Cozaar) 50 mg PO DAILY [facility] Last Admin: 05/31/17 08:31 Dose: 50 mg Repaglinide (Prandin) 2 mg PO TIDWM [facility] Last Admin: 05/31/17 08:32 Dose: 2 mg Fluticasone/Salmeterol (Advair Diskus 500/50) 1 puff IH Q12 [facility] Last Admin: 05/31/17 08:30 Dose: 1 unit Simethicone (Mylicon Liq) 40 mg PO QID PRN PRN Reason: Flatulence Last Admin: 05/30/17 08:10 Dose: 40 mg Tiotropium [place] (Spiriva) 18 mcg INH DAILY [facility] Last Admin: 05/31/17 08:31 Dose: 18 mcg Warfarin Sodium (Coumadin) 5 mg PO QD5 [facility] PRN Reason: Protocol Stop: 05/31/17 17:01 - Labs Labs: 05/27/17 13:15 05/26/17 05:45 PT 19.5 Seconds (9.8-13.1) H D 05/31/17 05:35 INR 1.7 (0.9-1.2) H D 05/31/17 05:35
--- NOTE | 2017-05-31 11:05 | CP.PCM.DIS ---
Provider - Provider Date of Admission: 05/23/17 16:59 Attending physician: Viola Cano MD Primary care physician: Dr. Tigre Galvez Consults: Cardiology: Dr. Last Pulmonology: Dr. 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 As per Dr. Hameed, pt has recovered from acute episode of pneumonia. No changes to medications. (2) Atrial fibrillation Status: Chronic Priority: High Comment: Chronic; operating room assistant Dr. Last was on consult. Pt was on home dose coumadin 5mg; originally admitted to tele prior to TCU admission with INR 3.7; coumadin dose adjusted during pt's hospital and TCU stay. Spoke with Dr. Last- pt is to take 2.5mg and 5mg doses on alternating days. Pt was also on home dose digoxin 0.25mg; it was noted during his admission to telemetry that he had several episodes of 2-3 second pauses between beats. As per cardio, digoxin was lowered to 0.125 mg, and pt underwent 24 hr Holter monitoring; as per Dr. Last , pt is to stop digoxin at this time. Dr. Last will give pt script for outpatient 24 hr Holter, and he will follow up in his office. Coumadin dose adjusted so that patient takes 2.5 mg and 5mg on alternating days. Hospital Course - Lab Results Lab Results: Most Recent Lab Values WBC 8.1 K/uL (4.8-10.8) 05/27/17 13:15 RBC 4.35 Mil/uL (4.40-5.90) L 05/27/17 13:15 Hgb 13.8 g/dL (12.0-18.0) 05/27/17 13:15 Hct 40.5 % (35.0-51.0) 05/27/17 13:15 MCV 93.0 fl (80.0-94.0) 05/27/17 13:15 MCH 31.8 pg (27.0-31.0) H 05/27/17 13:15 MCHC 34.2 g/dL (33.0-37.0) 05/27/17 13:15 RDW 13.0 % (11.5-14.5) 05/27/17 13:15 Plt Count 348 K/uL (130-400) 05/27/17 13:15 PT 19.5 Seconds (9.8-13.1) H D 05/31/17 05:35 INR 1.7 (0.9-1.2) H D 05/31/17 05:35 Sodium 140 mmol/l (132-148) 05/26/17 05:45 Potassium 3.9 MMOL/L (3.6-5.0) 05/26/17 05:45 Chloride 99 mmol/L (98-107) 05/26/17 05:45 Carbon Dioxide 32 mmol/L (22-30) H 05/26/17 05:45 Anion Gap 13 (10-20) 05/26/17 05:45 BUN 17 mg/dl (9-20) 05/26/17 05:45 Creatinine 0.8 mg/dl (0.8-1.5) 05/26/17 05:45 Est GFR ( Amer) > 60 05/26/17 05:45 Est GFR (Non-Af Amer) > 60 05/26/17 05:45 POC Glucose (mg/dL) 168 mg/dL (65-110) H 05/31/17 10:43 Random Glucose 113 mg/dL (75-110) H 05/26/17 05:45 Calcium 9.6 mg/dL (8.4-10.2) 05/26/17 05:45 Total Bilirubin 0.7 mg/dl (0.2-1.3) 05/26/17 05:45 AST 61 U/L (17-59) H 05/26/17 05:45 ALT 75 U/L (21-72) H D 05/26/17 05:45 Alkaline Phosphatase 46 U/L (38-126) 05/26/17 05:45 Total Protein 6.7 G/DL (6.3-8.2) 05/26/17 05:45 Albumin 3.4 g/dL (3.5-5.0) L 05/26/17 05:45 Globulin 3.3 gm/dL (2.2-3.9) 05/26/17 05:45 Albumin/Globulin Ratio 1.0 (1.0-2.1) 05/26/17 05:45 - Hospital Course Hospital Course: 76 yo M with PMH atrial fibrillation, COPD, hypertension, hyperlipidemia was admitted to TCU to finish course of antibiotics (10 days IV Zosyn) and for PT/ OT rehab after admission to [facility] for sepsis due to pneumonia and elevated troponins/NSTEMI. Pt was followed by cardiology (Dr. Last) and pulmonology ( Dr. Hameed) throughout his stay on the medical floors and care continued in TCU. As per Dr. 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 As per operating room assistant Dr. Last, pt is to stop taking digoxin; during his stay in telemetry, he was found to have episodes of 2-3 seconds between beats. Cardiology adjusted his dose from 0.25 mg to 0.125mg and he had Holter monitoring. Spoke to Dr. Last, who stated there were still some 2-3 second pauses as before, so he recommends stopping digoxin at this time. Dr. Last arranged for Holter monitoring as outpatient, and pt has appt with him as well. Coumadin dose adjusted- pt is to take 2.5 mg and 5mg on alternating days. Dr. Last discussed digoxin and coumadin with patient prior to discharge. Medication changes, regimen and follow-up discussed with patient; and instructions written in patient discharge instructions as well. During this admission- pt had six minute walk test while off oxygen. He desaturated to 81%; should go home with home oxygen. Medications adjusted during pt's hospital stay: coumadin - now taking 2.5 mg and 5mg on alternating/every other day atorvastatin - increased to 40mg from 20 mg nightly (new script sent to pharmacy ) losartan - increased to 50 mg (script given by Dr. Last). hctz - 12.5mg started during this admission (script given by Dr. Last). levemir (while admitted)/ Lantus (at home)- pt's sugars appropriately controlled with 10U before bedtime; to continue 10U lantus before bedtime; can be re-evaluated on visit with PMD (new script sent to pharmacy) Discharge Exam - Head Exam Head Exam: NORMAL INSPECTION, NORMOCEPHALIC - Eye Exam Eye Exam: EOMI, Normal appearance - ENT Exam ENT Exam: Mucous Membranes Moist - Neck Exam Neck exam: Normal Inspection - Respiratory Exam Respiratory Exam: Clear to PA & Lateral, NORMAL BREATHING PATTERN, UNREMARKABLE. absent: Wheezes, Respiratory Distress - Cardiovascular Exam Cardiovascular Exam: Irregular Rhythm - GI/Abdominal Exam GI & Abdominal Exam: Normal Bowel Sounds, Soft, Unremarkable. absent: Tenderness - Extremities Exam Extremities exam: normal capillary refill, normal inspection - Back Exam Back exam: NORMAL INSPECTION - Neurological Exam Neurological exam: Alert, Oriented x3 - Psychiatric Exam Psychiatric exam: Normal Affect, Normal Mood - Skin Skin Exam: Dry, Intact, Normal Color, Warm Discharge Plan - Discharge Medications Prescriptions: Atorvastatin [Lipitor] 40 mg PO DAILY@2100 #30 tab Insulin Glargine,Hum.rec.anlog [Lantus Solostar] 10 unit SQ HS #3 insuln.pen - Follow Up Plan Condition: STABLE Disposition: HOME/ ROUTINE Patient education suggested?: Yes Instructions: Pneumonia, Adult (DC), Preventing Falls Referrals: Andrew Last MD [Staff Provider] - Susan Galvez MD [Family Provider] - 06/06/17 10:00 am Elgin Hameed MD [Staff Provider] -
--- NOTE | 2017-05-31 14:24 | CP.PCM.PCO ---
Assessment/Plan - Assessment and Plan (Free Text) Assessment: Pt for discharge home today. Inhalers no longer effective and pt requires long -term home oxygen at home for chronic COPD. Pt desaturated to 81% on at rest on room air with 6 minute walk test.
== END 2017-05-31 14:00 | disposition home or self-care (01) | DRG 871 ==
LOC: H.TCU 16:59
PROVIDERS: ADMIT Family Medicine Geriatric Medicine; ATTEND Family Medicine Geriatric Medicine
PROC: F08Z4FZ Home Management Treatment using Assistive, Adaptive, Supportive or Protective Equipment (ICD-10-PCS; principal; 2017-05-23)
PROC: F07M6FZ Therapeutic Exercise Treatment of Musculoskeletal System - Whole Body using Assistive, Adaptive, Supportive or Protective Equipment (ICD-10-PCS; 2017-05-23)
PROC: 3E03329 Introduction of Other Anti-infective into Peripheral Vein, Percutaneous Approach (ICD-10-PCS; 2017-05-23)
DX: A41.9 Sepsis, unspecified organism (principal); J15.9 Unspecified bacterial pneumonia; I21.19 ST elevation (STEMI) myocardial infarction involving other coronary artery of inferior wall; J84.9 Interstitial pulmonary disease, unspecified; E11.22 Type 2 diabetes mellitus with diabetic chronic kidney disease; I48.2 Chronic atrial fibrillation; E78.00 Pure hypercholesterolemia, unspecified; E78.5 Hyperlipidemia, unspecified; I12.9 Hypertensive chronic kidney disease with stage 1 through stage 4 chronic kidney disease, or unspecified chronic kidney disease; I25.2 Old myocardial infarction; Z79.01 Long term (current) use of anticoagulants; J43.9 Emphysema, unspecified; N18.9 Chronic kidney disease, unspecified; Z82.49 Family history of ischemic heart disease and other diseases of the circulatory system; Z83.3 Family history of diabetes mellitus; Z87.01 Personal history of pneumonia (recurrent); Z87.891 Personal history of nicotine dependence; F12.90 Cannabis use, unspecified, uncomplicated; R74.8 Abnormal levels of other serum enzymes; R79.1 Abnormal coagulation profile; R91.1 Solitary pulmonary nodule

== ENCOUNTER 2017-10-07 16:17 | Inpatient (IN) | payer MEDICARE ==
[2017-10-07 16:17] VITALS: PULSE 61; BMI 20.9
[2017-10-07] MEDS ORDERED: Albuterol-Ipratrop 3 mg / 0.5 (3 ml) UD ONE (16:25)
[2017-10-07] MEDS ORDERED: Albuterol-Ipratrop 3 mg / 0.5 (3 ml) UD INH STA (16:36)
[2017-10-07 16:41] LABS: ABG ALLEN TEST YES; ARTERIAL BLOOD GAS HCO3 23.8 mmol/L (21-28); ARTERIAL BLOOD GAS O2 SAT 100.5 % (95-98); ARTERIAL BLOOD GAS PCO2 73 mm/Hg (35-45); ARTERIAL BLOOD GAS PO2 111 mm/Hg (80-100); ARTERIAL BLOOD GAS TCO2 30.7 mmol/L (22-28)
--- NOTE | 2017-10-07 16:54 | ED PDOC ---
HPI: SOB/CHF/COPD Time Seen by Provider: 10/07/17 16:24 Chief Complaint (Nursing): Shortness Of Breath Chief Complaint (Provider): Shortness Of Breath History Per: Patient History/Exam Limitations: no limitations Onset/Duration Of Symptoms: Days (x2) Current Symptoms Are (Timing): Still Present Additional Complaint(s): 76 y/o male with a PMHx of COPD, emphysema and AFib presents to the ed complaining of shortness of breath s/p lung biopsy on . Family states patient has been coughing up blood since the lung biopsy but state that they were told it is normal after having a lung biopsy. However, family state shortness of breath has been progressively worsening thus prompting today's visit. Patient has been using nebulizer and albuterol at home with minimal relief. Patient has not taken regular medications today. PMD: Susan Galvez Manager Part: Dr. Stone Past Medical History Reviewed: Historical Data, Nursing Documentation, Vital Signs Vital Signs: Last Vital Signs Temp 98.3 F 10/09/17 12:00 Pulse 90 10/09/17 12:00 Resp 11 L 10/09/17 12:00 BP 123/71 10/09/17 12:00 Pulse Ox 100 10/09/17 12:00 - Medical History PMH: Atrial Fibrillation, COPD, Emphysema, HTN, Hypercholesterolemia, Pneumonia , Chronic Kidney Disease Denies: HIV - Family History Family History: States: Unknown Family Hx - Home Medications Home Medications: Ambulatory Orders Medication Instructions Recorded Albuterol Sulfate [Proair Hfa] 2 puff IH Q6 PRN 05/18/17 Finasteride [Proscar] 5 mg PO DAILY 05/18/17 Fluticasone/Salmeterol 500/50 1 puff IH Q12 05/18/17 [Advair Diskus 500/50] Gabapentin [Neurontin] 300 mg PO HS 05/18/17 Repaglinide [Prandin] 2 mg PO TID 05/18/17 Warfarin [Coumadin] 2.5 mg PO Q48H 05/18/17 Warfarin [Coumadin] 5 mg PO Q48H 05/18/17 Tiotropium [Spiriva] 18 mcg INH DAILY cap 05/23/17 Atorvastatin [Lipitor] 40 mg PO DAILY@2100 #30 tab 05/31/17 Insulin Glargine,Hum.rec.anlog 10 unit SQ HS #3 insuln.pen 05/31/17 [Lantus Solostar] Losartan [Cozaar] 50 mg PO DAILY tab 05/31/17 hydroCHLOROthiazide [Microzide] 12.5 mg PO DAILY cap 05/31/17 - Allergies Allergies/Adverse Reactions: Allergies Allergy/AdvReac Type Severity Reaction Status Date / Time hydromorphone Allergy Mild RASH Verified 05/18/17 11:44 Review of Systems ROS Statement: Except As Marked, All Systems Reviewed And Found Negative Cardiovascular: Negative for: Chest Pain Respiratory: Positive for: Cough, Shortness of Breath, Hemoptysis Musculoskeletal: Negative for: Leg Pain (swelling) Physical Exam - Reviewed Nursing Documentation Reviewed: Yes Vital Signs Reviewed: Yes - Physical Exam Appears: Positive for: Uncomfortable, In Acute Distress (respiratory distress) ENT: Positive for: Pharynx Is (clear), Other (Tachy Mucous Membranes) Cardiovascular/Chest: Positive for: Tachycardia, Irregularly Irregular Respiratory: Positive for: Decreased Breath Sounds (Poor breath sounds bilaterally), Accessory Muscle Use, Respiratory Distress, Other (increased expiratory phase) Extremity: Negative for: Pedal Edema - Laboratory Results Result Diagrams: 10/09/17 04:45 10/09/17 04:45 - ECG ECG Rhythm: Positive for: Atrial Fibrillation (Rapid) Rate: 129 O2 Sat by Pulse Oximetry: 91 (RA) Pulse Ox Interpretation: Normal - Radiology X-Ray Interpretation: Pnemothorax - Critical Care Total Time (In Min): 100 Documented Critical Care: Time excludes all time spent performint seperately billable procedures Medical Decision Making Medical Decision Making: Time: 1636 Impression: Dyspnea Differentials include but not limited to COPD exacerbation, rapid atrial fibrillation, CHF, Pneumothorax, pneumonia. Plan: -- Type and Screen -- ABG -- Chest CT w/o Contrast -- EKG -- B-type Natriuretic -- CMP -- Magnesium -- Phosphorus -- Troponin I -- ED Urine Dipstick -- CBC with differntials -- PTT -- Prothrombin Time -- CXR Portable -- Glucose, POC -- Sodium Chloride 0.9% 100 ml Cardizem 125 mg IV 5 mg/hr -- Sodium Chloride 0.9% 100 ml Cardizem 125 mg IV 5 mg/hr -- Duoneb [3 mg/0.5 mg (3 ml) UD] 9 ml INH -- SOLU-medrol 125 mg IVP -- Blood Culture -- Necktie Centralizing Machine Operator -- IV Insertion -- Peak Flow Pre/Post -- X-ray demonstrates left lower lobe pleural bleb vs pneumothorax with chronic scarring bilaterally especially the left lower lobe, no effusion. --EKG rapid afib. Cardizem load given with improvement immediately. Drip held for now. Time: [address] RESULTS FINDINGS: Lungs: See below. Pleural space: There is a large left pneumothorax, approximately 40% of the lung collapsed. Underlying severe centrilobular emphysema and multifocal linear well scarring or atelectasis with several nodular densities in the lung apices. Questionable 22 mm spiculated lesion in the right apex, versus chronic scarring. No significant effusion. Heart: There is coronary artery calcification. No significant pericardial effusion. Bones/joints: Unremarkable. No acute fracture. No dislocation. Soft tissues: Unremarkable. Vasculature: Unremarkable. No thoracic aortic aneurysm. Lymph nodes: Unremarkable. No enlarged lymph nodes. Other findings: IMPRESSION: Large left pneumothorax. Questionable spiculated lesion in the left lung apex. Further evaluation recommended. Thank you for allowing us to participate in the care of your patient. Dictated and Authenticated by: Porsche Palumbo MD 10/07/2017 5:55 PM Eastern Time ([place] & [place]) -- Discussed with Dr. Justice, thoracic surgeon who agrees with plan for thoracostomy. -- Discussed with Dr. Garcia, surgical instrument maker who will come to perform thoracostomy. -- Discussed with Dr. Hameed, washing machine installer who agrees with plan. -- Discussed with Dr. Willis, construction scheduler for ICU placement for Pnemothorax, COPD exacerbation and Respiratory Acidosis. -- Discussed with family practice resident for admission to their service. -- DW family/ at length concerning diagnosis and procedure. -- Discussed with Dr. Cooper, the oncology fellow for patient's MS[facility] with Dr. Dumont who was made aware of today's events, reviewed chart and states no results have been made available regarding the lung biopsy. 2200 Chest thoracostomy performed by Surgical residents. CXR show mild improvement. Repeat ABG demonstrates improvement of respiratory acidosis. Scribe Attestation: Documented by Martinez Jara acting as a scribe for Dr. Megan Ott. Provider Scribe Attestation: All medical record entries made by the Scribe were at my direction and personally dictated by me. I have reviewed the chart and agree that the record accurately reflects my personal performance of the history, physical exam, medical decision making, and the department course for this patient. I have also personally directed, reviewed, and agree with the discharge instructions and disposition. Disposition - Clinical Impression Clinical Impression: Pneumothorax, NSTEMI (non-ST elevated myocardial infarction), COPD exacerbation Counseled Patient/Family Regarding: Studies Performed, Diagnosis - Disposition Disposition Time: 17:00 Condition: CRITICAL - Pt Status Changed To: Hospital Disposition Of: Inpatient - Admit Certification Admit to Inpatient:: After my assessment, the patient will require hospitalization for at least two midnights. This is because of the severity of symptoms shown, intensity of services needed, and/or the medical risk in this patient being treated as an outpatient. - POA Present On Arrival: None
[2017-10-07 17:16] LABS: BASO % 0.4 % (0.0-2.0); EOS # 0.1 K/uL (0.0-0.7); EOS % 0.8 % (0.0-4.0); HEMOGLOBIN 14.9 g/dL (12.0-18.0); LYMPH % 21.8 % (20.0-40.0); MEAN CELL VOLUME 92.9 fl (80.0-94.0); MEAN CORPUSCULAR HEMOGLOBIN 31.7 pg (27.0-31.0); MEAN CORPUSCULAR HGB CONC 34.1 g/dL (33.0-37.0); MEAN PLATELET VOLUME 7.4 fl (7.2-11.7); MONO # 1.1 K/uL (0.0-0.8); MONO % 8.2 % (0.0-10.0); NEUT # 9.3 K/uL (1.8-7.0); NEUT % 68.8 % (50.0-75.0); RBC 4.71 Mil/uL (4.40-5.90); RED CELL DISTRIBUTION WIDTH 14.1 % (11.5-14.5); WHITE BLOOD COUNT 13.6 K/uL (4.8-10.8)
[2017-10-07 17:18] LABS: INR 1.2; PROTHROMBIN TIME 13.3 Seconds (9.8-13.1)
[2017-10-07 17:21] LABS: PARTIAL THROMBOPLASTIN TIME 34.1 Seconds (25.6-37.1)
[2017-10-07 17:30] LABS: ALB/GLOB RATIO 1.4 (1.0-2.1); ALBUMIN 4.7 g/dL (3.5-5.0); ALT/SGPT 42 U/L (21-72); AST/SGOT 64 U/L (17-59); BLOOD UREA NITROGEN 21 mg/dl (9-20); GFR AFRICAN-AMERICAN > 60; GFR NON-AFRICAN AMERICAN > 60
[2017-10-07] MEDS ORDERED: Lidocaine 2% w Epi 1:100,000 Inj IJ ONE (17:37)
[2017-10-07 17:48] LABS: B-TYPE NATRIURETIC PEPTIDE 4320 pg/ml (0-900)
--- NOTE | 2017-10-07 18:36 | CP.PCM.CON ---
History of Present Illness - History of Present Illness History of Present Illness: Thoracic surgery consult note for Dr. Apple Garcia, PGY-2 Pt S & E at bedside at 1836 76M w/PMH sig for COPD/emphysema consulted for pneumothorax. Pt had lung bx on 10/04/17 - post op had SOB, hemoptysis (blood clots). Pt reports on home O2 (2L) and duonebs, but was having progressive SOB over the last 3 days. Pt reported to ED due to severe SOB. Denies chest pain, N & V, F & C, changes to bowel or bladder habits, other complaints. IN ED- CT chest with Left sided pneumothorax approximately 40%. Leukocytosis 13.6, afebrile, but tachypneic, labored breathing, O2 sat 91% on RA, 100% on 5 L via VM. BP WNL. PMH: COPD/emphysema, afib on Warfarin (did not take todays dose), HTN, BPH PSH: Lung bx (10/04/17), back sx All: Dilaudid (itching) SH: Remote hx of tobacco use- pipe, denies ETOH or illicit drug use Review of Systems - Review of Systems All systems: reviewed and no additional remarkable complaints except - Constitutional Constitutional: absent: Chills, Fever - EENT Eyes: absent: Change in Vision Ears: absent: Dizziness Nose/Mouth/Throat: absent: Sore Throat - Cardiovascular Cardiovascular: absent: Chest Pain, Palpitations - Respiratory Respiratory: Dyspnea, Hemoptysis. absent: Wheezing, Snoring, Stridor, Pain on Inspiration - Gastrointestinal Gastrointestinal: absent: Abdominal Pain, Nausea, Vomiting - Genitourinary Genitourinary: absent: Change in Urinary Stream, Hematuria - Musculoskeletal Musculoskeletal: Tingling (chronic - feet). absent: Numbness - Integumentary Integumentary: absent: Rash - Psychiatric Psychiatric: absent: Change in Appetite Past Patient History - Past Medical History & Family History Past Medical History?: Yes - Past Social History Smoking Status: Former Smoker - CARDIAC Hx Atrial Fibrillation: Yes Hx Hypercholesterolemia: Yes Hx Hypertension: Yes - PULMONARY Hx Chronic Obstructive Pulmonary Disease (COPD): Yes Hx Emphysema: Yes Hx Pneumonia: Yes - NEUROLOGICAL Hx Neurological Disorder: No - HEENT Hx HEENT Problems: No - RENAL Hx Chronic Kidney Disease: Yes - ENDOCRINE/METABOLIC Hx Diabetes Mellitus Type 2: Yes - HEMATOLOGICAL/ONCOLOGICAL Hx Human Immunodeficiency Virus (HIV): No - INTEGUMENTARY Hx Dermatological Problems: No - MUSCULOSKELETAL/RHEUMATOLOGICAL Hx Musculoskeletal Disorders: No Hx Falls: No - GASTROINTESTINAL Hx Gastrointestinal Disorders: No - GENITOURINARY/GYNECOLOGICAL Hx Genitourinary Disorders: Yes Hx Prostate Problems: Yes - PSYCHIATRIC Hx Psychophysiologic Disorder: No Hx Substance Use: No - SURGICAL HISTORY Hx Surgeries: Yes Other/Comment: LUNG SX . BACK SX - ANESTHESIA Hx Anesthesia: Yes Hx Anesthesia Reactions: No Hx Malignant Hyperthermia: No Meds Allergies/Adverse Reactions: Allergies Allergy/AdvReac Type Severity Reaction Status Date / Time hydromorphone Allergy Mild RASH Verified 05/18/17 11:44 - Medications Medications: Current Medications Diltiazem HCl 100 mg/ Sodium (Chloride) 100 mls @ 5 mls/hr IV .Q20H ONE; 5 MG/ HR PRN Reason: Protocol Stop: 10/08/17 12:59 Physical Exam - Constitutional Appears: Non-toxic, No Acute Distress - Head Exam Head Exam: ATRAUMATIC, NORMAL INSPECTION, NORMOCEPHALIC - Eye Exam Eye Exam: EOMI, Normal appearance - ENT Exam ENT Exam: Mucous Membranes Moist, Normal Exam - Neck Exam Neck exam: Positive for: Full Rom, Normal Inspection - Respiratory Exam Respiratory Exam: Accessory Muscle Use, Decreased Breath Sounds (left lung sy). absent: Respiratory Distress, NORMAL BREATHING PATTERN - Cardiovascular Exam Cardiovascular Exam: Tachycardia, +S1, +S2 - GI/Abdominal Exam GI & Abdominal Exam: Normal Bowel Sounds, Soft. absent: Distended, Firm, Guarding, Tenderness - Extremities Exam Extremities exam: Positive for: normal inspection - Neurological Exam Neurological exam: Alert, CN II-XII Intact, Oriented x3 - Psychiatric Exam Psychiatric exam: Normal Affect, Normal Mood - Skin Skin Exam: Dry, Intact, Normal Color, Warm Results - Vital Signs Recent Vital Signs: Last Vital Signs Temp 98.8 F 10/07/17 16:20 Pulse 129 H 10/07/17 18:19 Resp 20 10/07/17 16:50 BP 162/112 H 10/07/17 16:50 Pulse Ox 91 L 10/07/17 18:19 - Labs Result Diagrams: 10/07/17 16:35 10/07/17 16:35 Labs: Laboratory Results - last 24 hr 10/07/17 10/07/17 10/07/17 16:24 16:32 16:35 WBC 13.6 H D RBC 4.71 Hgb 14.9 Hct 43.7 MCV 92.9 MCH 31.7 H MCHC 34.1 RDW 14.1 Plt Count 362 MPV 7.4 Neut % (Auto) 68.8 Lymph % (Auto) 21.8 Cedar % (Auto) 8.2 Eos % (Auto) 0.8 Baso % (Auto) 0.4 Neut # (Auto) 9.3 H Lymph # (Auto) 3.0 Cedar # (Auto) 1.1 H Eos # (Auto) 0.1 Baso # (Auto) 0.0 PT INR APTT pCO2 73 H* pO2 111 H HCO3 23.8 ABG pH 7.20 L ABG Total CO2 30.7 H ABG O2 Saturation 100.5 H ABG Base Excess -1.4 Scout Test Yes ABG Potassium 4.4 A-a O2 Difference 54.0 Sodium 134.0 Chloride 98.0 Glucose 217 H Lactate 2.6 H FiO2 36.0 Crit Value Called To margot Ott md Crit Value Called By Briana malloy Crit Value Read Back Y Blood Gas Notified Time 1641 Potassium Carbon Dioxide Anion Gap BUN Creatinine Est GFR ( Amer) Est GFR (Non-Af Amer) POC Glucose (mg/dL) 188 H Random Glucose Calcium Phosphorus Magnesium Total Bilirubin AST ALT Alkaline Phosphatase Troponin I NT-Pro-B Natriuret Pep Total Protein Albumin Globulin Albumin/Globulin Ratio Arterial Blood Potassium 4.4 Blood Type Antibody Screen BBK History Checked 10/07/17 10/07/17 10/07/17 16:35 16:35 16:35 WBC RBC Hgb Hct MCV MCH MCHC RDW Plt Count MPV Neut % (Auto) Lymph % (Auto) Cedar % (Auto) Eos % (Auto) Baso % (Auto) Neut # (Auto) Lymph # (Auto) Cedar # (Auto) Eos # (Auto) Baso # (Auto) PT 13.3 H INR 1.2 APTT 34.1 pCO2 pO2 HCO3 ABG pH ABG Total CO2 ABG O2 Saturation ABG Base Excess Scout Test ABG Potassium A-a O2 Difference Sodium 138 Chloride 99 Glucose Lactate FiO2 Crit Value Called To Crit Value Called By Crit Value Read Back Blood Gas Notified Time Potassium 4.9 Carbon Dioxide 25 Anion Gap 19 BUN 21 H Creatinine 1.0 Est GFR ( Amer) > 60 Est GFR (Non-Af Amer) > 60 POC Glucose (mg/dL) Random Glucose 203 H Calcium 10.0 Phosphorus 5.7 H Magnesium 1.7 Total Bilirubin 1.2 AST 64 H ALT 42 Alkaline Phosphatase 84 Troponin I 1.1400 H* NT-Pro-B Natriuret Pep 4320 H Total Protein 7.9 Albumin 4.7 Globulin 3.3 Albumin/Globulin Ratio 1.4 Arterial Blood Potassium Blood Type A POSITIVE Antibody Screen Negative BBK History Checked Patient has bt Assessment & Plan - Assessment and Plan (Free Text) Assessment: 76M w/Left sided pneumothorax s/p Lung bx on 10/04/17 Plan: CT insertion Will place to wall suction Consent in chart Target SaO2 >94% O2 PRN Further mgmt as per primary team DW attending Radha, PGY-2 - Date & Time Date: 10/07/17 Time: 18:42 Chest Tube Insertion - Chest Tube Placement Indication: Pneumothorax Consent Obtained: Written Procedural Sedation: None Procedure Description: Prepped W/Betadine (prepped with chlorohexidine), Sterile Drape Applied, Local Anes Used: (Lidocaine 1%, 10cc) Incision Completed And Tube Inserted At: between 4th and 5th rib spaces of left midaxillary line Post Insertion Procedure(s): Tube Sutured To Chest Wall, CXR Completed To Confirm Placement, Tube Connected To Suction (Air leak noted)
--- NOTE | 2017-10-07 19:12 | CP.PCM.HP ---
History of Present Illness - History of Present Illness History of Present Illness: 76 y/o M with PMH of HTN, COPD, DM2, atrial fibrillation (sees Dr. Last), and hx of lung nodule (sees specialist in [facility]) admitted to [facility] for evaluation and treatment of left lung pneumothorax. As per patient, he had left lung nodule/ mass and had biopsy on 10/04/17 at [facility], since then patient has been having worsening SOB at home. Breathing difficulty is associated with runny nose and cough with some sputum (Patient had some blood with sputum after biopsy but resolved). Patient denies any alleviating factors but exertion made his SOB worse. Reports taking Cumadin 2.5mg once since his lung biopsy, didn't take Cumadin today. Patient denies any falls, LOC, skin color changes, Fever, vomiting, chest pain, dizziness, abdominal pain, urinary symptoms or weakness. PMD: Dr. Galvez Past Med hx: hypertension, COPD, DM2, A-fib, lung nodule Past Surg hx: left lung, left lung nodule/mass that has been resected in the past (5 years ago) Family hx: grandmother DM2, grandfather IA Social hx: smoked cig for 10 yrs (age [age]), then smoked tobacco pipe from age [age], 1 beer a week, denies drug use Allergies: hydromorphone Next of kin: [place] [phone] Code status: full code ROS: As HPI ER Course: VS: 98.8Tm, HR 110, 180/104, 22 RR, O2 sat 91% RA on Non-rebreather mask CBC: Significant for WBC 13.6 CMP: Significant for BUN 21, Glucose 203, Troponin 1.14 (Chronic), Pro BNP 4320 ABG: Pco2 73, Po2 111, Hco3 23.8, PH 7.2, Lactate 2.6 Coag: PT/PTT/INR: 13.3/1.2/34.1 (Didn't take his Cumadin today) S/p Cardizem 20mg STAT S/p MethylPred 125mg STAT S/p Duoneb Present on Admission - Present on Admission Any Indicators Present on Admission: No History of DVT/PE: No History of Uncontrolled Diabetes: No Urinary Catheter: No Decubitus Ulcer Present: No Past Patient History - Past Medical History & Family History Past Medical History?: Yes - Past Social History Smoking Status: Former Smoker - CARDIAC Hx Atrial Fibrillation: Yes Hx Hypercholesterolemia: Yes Hx Hypertension: Yes - PULMONARY Hx Chronic Obstructive Pulmonary Disease (COPD): Yes Hx Emphysema: Yes Hx Pneumonia: Yes - NEUROLOGICAL Hx Neurological Disorder: No - HEENT Hx HEENT Problems: No - RENAL Hx Chronic Kidney Disease: Yes - ENDOCRINE/METABOLIC Hx Diabetes Mellitus Type 2: Yes - HEMATOLOGICAL/ONCOLOGICAL Hx Human Immunodeficiency Virus (HIV): No - INTEGUMENTARY Hx Dermatological Problems: No - MUSCULOSKELETAL/RHEUMATOLOGICAL Hx Musculoskeletal Disorders: No Hx Falls: No - GASTROINTESTINAL Hx Gastrointestinal Disorders: No - GENITOURINARY/GYNECOLOGICAL Hx Genitourinary Disorders: Yes Hx Prostate Problems: Yes - PSYCHIATRIC Hx Psychophysiologic Disorder: No Hx Substance Use: No - SURGICAL HISTORY Hx Surgeries: Yes Other/Comment: LUNG SX . BACK SX - ANESTHESIA Hx Anesthesia: Yes Hx Anesthesia Reactions: No Hx Malignant Hyperthermia: No Meds Allergies/Adverse Reactions: Allergies Allergy/AdvReac Type Severity Reaction Status Date / Time hydromorphone Allergy Mild RASH Verified 05/18/17 11:44 Physical Exam - Constitutional Appears: No Acute Distress - Head Exam Head Exam: NORMAL INSPECTION - Eye Exam Eye Exam: EOMI, Normal appearance, PERRL Pupil Exam: NORMAL ACCOMODATION - ENT Exam ENT Exam: Mucous Membranes Moist - Neck Exam Neck exam: Positive for: Full Rom, Normal Inspection - Respiratory Exam Respiratory Exam: Accessory Muscle Use, Decreased Breath Sounds (Left side ). absent: Chest Wall Tenderness, Wheezes, Respiratory Distress - Cardiovascular Exam Cardiovascular Exam: Irregular Rhythm, +S1, +S2 - GI/Abdominal Exam GI & Abdominal Exam: Normal Bowel Sounds, Soft. absent: Guarding, Organomegaly , Rebound, Rigid, Tenderness - Extremities Exam Extremities exam: Positive for: normal inspection, pedal pulses present. Negative for: joint swelling, pedal edema, tenderness - Back Exam Back exam: NORMAL INSPECTION. absent: CVA tenderness (L), CVA tenderness (R) - Neurological Exam Neurological exam: Alert, CN II-XII Intact, Oriented x3 - Psychiatric Exam Psychiatric exam: Normal Affect - Skin Skin Exam: Dry, Intact, Normal Color, Warm Results - Vital Signs Recent Vital Signs: Last Vital Signs Temp 98.8 F 10/07/17 16:20 Pulse 129 H 10/07/17 18:50 Resp 27 H 10/07/17 18:38 BP 162/112 H 10/07/17 16:50 Pulse Ox 91 L 10/07/17 18:50 - Labs Result Diagrams: 10/07/17 16:35 10/07/17 16:35 Labs: Laboratory Results - last 24 hr 10/07/17 10/07/17 10/07/17 16:24 16:32 16:35 WBC 13.6 H D RBC 4.71 Hgb 14.9 Hct 43.7 MCV 92.9 MCH 31.7 H MCHC 34.1 RDW 14.1 Plt Count 362 MPV 7.4 Neut % (Auto) 68.8 Lymph % (Auto) 21.8 Wilson % (Auto) 8.2 Eos % (Auto) 0.8 Baso % (Auto) 0.4 Neut # (Auto) 9.3 H Lymph # (Auto) 3.0 Wilson # (Auto) 1.1 H Eos # (Auto) 0.1 Baso # (Auto) 0.0 PT INR APTT pCO2 73 H* pO2 111 H HCO3 23.8 ABG pH 7.20 L ABG Total CO2 30.7 H ABG O2 Saturation 100.5 H ABG Base Excess -1.4 Scout Test Yes ABG Potassium 4.4 A-a O2 Difference 54.0 Sodium 134.0 Chloride 98.0 Glucose 217 H Lactate 2.6 H FiO2 36.0 Crit Value Called To margot Ott md Crit Value Called By Briana malloy Crit Value Read Back Y Blood Gas Notified Time 1641 Potassium Carbon Dioxide Anion Gap BUN Creatinine Est GFR ( Amer) Est GFR (Non-Af Amer) POC Glucose (mg/dL) 188 H Random Glucose Calcium Phosphorus Magnesium Total Bilirubin AST ALT Alkaline Phosphatase Troponin I NT-Pro-B Natriuret Pep Total Protein Albumin Globulin Albumin/Globulin Ratio Arterial Blood Potassium 4.4 Blood Type Antibody Screen BBK History Checked 10/07/17 10/07/17 10/07/17 16:35 16:35 16:35 WBC RBC Hgb Hct MCV MCH MCHC RDW Plt Count MPV Neut % (Auto) Lymph % (Auto) Wilson % (Auto) Eos % (Auto) Baso % (Auto) Neut # (Auto) Lymph # (Auto) Wilson # (Auto) Eos # (Auto) Baso # (Auto) PT 13.3 H INR 1.2 APTT 34.1 pCO2 pO2 HCO3 ABG pH ABG Total CO2 ABG O2 Saturation ABG Base Excess Scout Test ABG Potassium A-a O2 Difference Sodium 138 Chloride 99 Glucose Lactate FiO2 Crit Value Called To Crit Value Called By Crit Value Read Back Blood Gas Notified Time Potassium 4.9 Carbon Dioxide 25 Anion Gap 19 BUN 21 H Creatinine 1.0 Est GFR ( Amer) > 60 Est GFR (Non-Af Amer) > 60 POC Glucose (mg/dL) Random Glucose 203 H Calcium 10.0 Phosphorus 5.7 H Magnesium 1.7 Total Bilirubin 1.2 AST 64 H ALT 42 Alkaline Phosphatase 84 Troponin I 1.1400 H* NT-Pro-B Natriuret Pep 4320 H Total Protein 7.9 Albumin 4.7 Globulin 3.3 Albumin/Globulin Ratio 1.4 Arterial Blood Potassium Blood Type A POSITIVE Antibody Screen Negative BBK History Checked Patient has bt Assessment & Plan - Assessment and Plan (Free Text) Assessment: A/P: 76 y/o M with PMH of HTN, COPD, DM2, atrial fibrillation (sees Dr. Last), and hx of lung nodule (sees specialist in [facility]) admitted for Pneumothorax, s/p lung biopsy. Left lung Pneumothorax - Acute - S/p Left lung biopsy at [facility] clinic on 10/04/17 - CXR: Left lung pneumothorax, f/u official report - CT Chest: Left lung Pneumothorax, 40% lung collapsed - Pulmonary Consult, Dr. Hameed, follow up recommendations - Thoracic Surgery Consult, Dr. Justice, Recommendations appreciated - Continue monitoring respiratory status: Patient is on Non-rebreather mask, saturating 100% - Possible Chest tube placement as per surgery Atrial Fibrillation - Chronic, asymptomatic - Cardio Consult, Dr. Efra Last called, recommendations appreciated - Coumadin, Home medication, taking 2.5 mg and 5mg on alternating/every other day - Held Cumadin, as per Dr. Last - Will follow further recommendations COPD - Chronic, Controlled - Pulmonary Consult, Dr. Hameed, follow up recommendations - C/w Albuterol Q6H PRN, Advir Q12, Spiriva 18mcg INH - Follow ABG Respiratory Acidosis with elevated Lactate - Possibly due to Pneumothorax vs chronic conditions - NC 2L as per surgery - Will repeat ABG to reassess respiratory status Elevated ProBNP and Troponin - Possibly related to Pneumothorax and heart strain due to Chronic conditions - Will discuss with Cardiology Left Lung Nodule, S/p Lung Biopsy on 10/04/17 at [facility] - Results pending Diabetes Mellitus type 2 - Controlled - Last HBA1C: 7.7 on 05/2017 - C/w Levemir 10 U HS - C/w Repaglinide 2mg TID - Hypoglycemic treatment protocol - Renzo LAM Hypertension - Uncontrolled - C/w Home medications: Losartan- HCTZ 40-12.5mg daily HLD - Home med atorvastatin 40mg DVT Prophylaxis - SCD for now (No anticoag due to Chest tube placement, recent lung biopsy) Full Code Next of kin: , [place] [phone]
[2017-10-07] MEDS ORDERED: Albuterol HFA 90 mcg/actuation (8 g) IH PRN (19:41)
[2017-10-07] MEDS ORDERED: Glucagon Recombinant 1 mg Inj IM PRN (19:49)
[2017-10-07] MEDS ORDERED: Dextrose 50% SYRINGE Inj (50 ml) IV PRN (19:49)
[2017-10-07] MEDS: Sodium Chloride 0.9% 1,000 ML IV SCH (19:58)
--- NOTE | 2017-10-07 19:58 | CP.PCM.CON ---
History of Present Illness - History of Present Illness History of Present Illness: Attending: Susan Galvez MD Plant Specialist: Dr Hameed Reason for Consult: Critical care management The patient was seen and examined in the ED with his Family present He is seen Post Left Chest Tube insertion HPI: The hx is obtained from the patient , his family and after review of the medical records. He is a 76 years old male with hx of COPD with Emphysema, A Fib DM II and a lung nodule which was biopsied 10/04/17 at [facility]. He comes to the [facility] ED with worsening SOB for the past 2 days not relieved by his Albuterol at home. In the Ed he had difficulty to speak and was diaphoretic. The family stated that he was significantly SOB on ambulation even before the surgery. He had post surgery hempoptysis which has decreased. He refers no pain, fever, nausea nor vomits. Also in ED the patient had an irregular HR of 130s and was treated with IV Cardizem. PMH: Atrial Fibrillation, COPD, Emphysema, HTN, HLD; Pneumonia, CKD; Lung nodule; PSH: Lung Biopsy; Back surgery SH: Former Smoker; No illegal drug use; Occasional Alcohol; Live with family FH: Grandfather with GA Grandmother with DM II Allergies: Hydromorphone Medication: Reviewed Review of Systems - Review of Systems Systems not reviewed;Unavailable: Respiratory Distress - Constitutional Constitutional: Anorexia, Weakness. absent: Chills, Fever, Headache - EENT Eyes: Requires Corrective Lenses. absent: Blurred Vision, Diplopia, Photophobia Ears: Decreased Hearing. absent: Tinnitus Nose/Mouth/Throat: absent: Epistaxis, Nasal Congestion, Sinus Pain, Sinus Pressure - Cardiovascular Cardiovascular: Dyspnea. absent: Chest Pain, Edema - Respiratory Respiratory: Dyspnea, Hemoptysis. absent: Wheezing, Stridor - Gastrointestinal Gastrointestinal: absent: Abdominal Pain, Constipation, Diarrhea - Genitourinary Genitourinary: absent: Dysuria, Flank Pain, Urinary Frequency - Musculoskeletal Musculoskeletal: Back Pain. absent: Joint Swelling, Muscle Cramps, Neck Pain - Integumentary Integumentary: absent: Pruritus, Rash, Skin Ulcer, Sores, Striae, Swelling - Neurological Neurological: Weakness. absent: Confusion, Focal Weakness - Psychiatric Psychiatric: absent: Anxiety, Depression, Panic Attacks - Endocrine Endocrine: absent: Polydipsia, Polyphagia, Polyuria - Hematologic/Lymphatic Hematologic: absent: Easy Bleeding, Easy Bruising Past Patient History - Past Medical History & Family History Past Medical History?: Yes - Past Social History Smoking Status: Former Smoker Chewing Tobacco Use: No Cigar Use: No Alcohol: Occasional Home Situation {Lives}: With Family - CARDIAC Hx Atrial Fibrillation: Yes Hx Hypercholesterolemia: Yes Hx Hypertension: Yes - PULMONARY Hx Chronic Obstructive Pulmonary Disease (COPD): Yes Hx Emphysema: Yes Hx Pneumonia: Yes - NEUROLOGICAL Hx Neurological Disorder: No - HEENT Hx HEENT Problems: No - RENAL Hx Chronic Kidney Disease: Yes - ENDOCRINE/METABOLIC Hx Diabetes Mellitus Type 2: Yes - HEMATOLOGICAL/ONCOLOGICAL Hx Human Immunodeficiency Virus (HIV): No - INTEGUMENTARY Hx Dermatological Problems: No - MUSCULOSKELETAL/RHEUMATOLOGICAL Hx Musculoskeletal Disorders: No Hx Falls: No - GASTROINTESTINAL Hx Gastrointestinal Disorders: No - GENITOURINARY/GYNECOLOGICAL Hx Genitourinary Disorders: Yes Hx Prostate Problems: Yes - PSYCHIATRIC Hx Psychophysiologic Disorder: No Hx Substance Use: No - SURGICAL HISTORY Hx Surgeries: Yes Other/Comment: LUNG SX . BACK SX - ANESTHESIA Hx Anesthesia: Yes Hx Anesthesia Reactions: No Hx Malignant Hyperthermia: No Meds Allergies/Adverse Reactions: Allergies Allergy/AdvReac Type Severity Reaction Status Date / Time hydromorphone Allergy Mild RASH Verified 05/18/17 11:44 - Medications Medications: Current Medications Acetaminophen (Tylenol 325mg Tab) 650 mg PO Q6H PRN PRN Reason: Pain, Mild (1-3) Albuterol (Ventolin Hfa 90 Mcg/Actuation (8 G)) 2 puff IH Q6 PRN PRN Reason: Shortness of Breath Atorvastatin Calcium (Lipitor) 40 mg PO DAILY@2100 [facility] Dextrose (Dextrose 50% Inj) 0 ml IV STAT PRN; Protocol PRN Reason: Hypoglycemia Protocol Dextrose (Glutose 15) 0 gm PO ONCE PRN; Protocol PRN Reason: Hypoglycemia Protocol Famotidine (Pepcid) 20 mg PO DAILY [facility] Finasteride (Proscar) 5 mg PO DAILY [facility] Gabapentin (Neurontin) 300 mg PO HS [facility] Glucagon (Glucagen Diagnostic Kit) 0 mg IM STAT PRN; Protocol PRN Reason: Hypoglycemia Protocol Home Med (Insulin Glargine,Hum.Rec.Anlog [Lantus Solostar]) 10 unit SQ HS [facility] Hydrochlorothiazide (Microzide) 12.5 mg PO DAILY [facility] Diltiazem HCl 100 mg/ Sodium (Chloride) 100 mls @ 5 mls/hr IV .Q20H ONE; 5 MG/ HR PRN Reason: Protocol Stop: 10/08/17 12:59 Sodium Chloride (Sodium Chloride 0.9%) 1,000 mls @ 110 mls/hr IV .Q9H6M [facility] Ketorolac Tromethamine (Toradol) 15 mg IVP Q6H PRN PRN Reason: Pain, moderate (4-7) Losartan Potassium (Cozaar) 50 mg PO DAILY [facility] Repaglinide (Prandin) 2 mg PO TID [facility] Fluticasone/Salmeterol (Advair Diskus 500/50) 1 puff IH Q12 [facility] Tiotropium [place] (Spiriva) 18 mcg INH DAILY [facility] Physical Exam - Constitutional Additional comments: Came into ED din Acute Respiratory distress. Now seen post Chest tube insertion , he is much improved breathing calmly. - Head Exam Head Exam: ATRAUMATIC, NORMAL INSPECTION, NORMOCEPHALIC - Eye Exam Eye Exam: EOMI, Normal appearance Pupil Exam: NORMAL ACCOMODATION, PERRL - ENT Exam ENT Exam: Mucous Membranes Moist, Normal Exam, Normal External Ear Exam - Neck Exam Neck exam: Positive for: Full Rom, Normal Inspection. Negative for: Lymphadenopathy, Tenderness - Respiratory Exam Additional comments: Left chest tube in place. the lung sy have distant breath sounds. No rales nor wheezes. - Cardiovascular Exam Cardiovascular Exam: Irregular Rhythm, +S1, +S2. absent: Gallop, JVD - GI/Abdominal Exam Additional comments: Full, soft, nontender. +ve bowel sounds, No guarding nor rebound tenderness - Rectal Exam Rectal Exam: Deferred - Extremities Exam Extremities exam: Positive for: full ROM, normal inspection. Negative for: joint swelling, pedal edema - Back Exam Back exam: NORMAL INSPECTION. absent: CVA tenderness (L), CVA tenderness (R) - Neurological Exam Neurological exam: Alert, CN II-XII Intact, Oriented x3, Reflexes Normal - Psychiatric Exam Psychiatric exam: Normal Affect, Normal Mood - Skin Skin Exam: Dry, Intact, Normal Color, Warm Results - Vital Signs Recent Vital Signs: Last Vital Signs Temp 97.4 F L 10/07/17 19:21 Pulse 116 H 10/07/17 19:21 Resp 28 H 10/07/17 19:21 BP 162/112 H 10/07/17 16:50 Pulse Ox 100 10/07/17 19:21 - Labs Result Diagrams: 10/07/17 16:35 10/07/17 16:35 Labs: Laboratory Results - last 24 hr 10/07/17 10/07/17 10/07/17 16:24 16:32 16:35 WBC 13.6 H D RBC 4.71 Hgb 14.9 Hct 43.7 MCV 92.9 MCH 31.7 H MCHC 34.1 RDW 14.1 Plt Count 362 MPV 7.4 Neut % (Auto) 68.8 Lymph % (Auto) 21.8 [place] % (Auto) 8.2 Eos % (Auto) 0.8 Baso % (Auto) 0.4 Neut # (Auto) 9.3 H Lymph # (Auto) 3.0 [place] # (Auto) 1.1 H Eos # (Auto) 0.1 Baso # (Auto) 0.0 PT INR APTT pCO2 73 H* pO2 111 H HCO3 23.8 ABG pH 7.20 L ABG Total CO2 30.7 H ABG O2 Saturation 100.5 H ABG Base Excess -1.4 Scout Test Yes ABG Potassium 4.4 A-a O2 Difference 54.0 Sodium 134.0 Chloride 98.0 Glucose 217 H Lactate 2.6 H FiO2 36.0 Crit Value Called To margot Ott md Crit Value Called By Briana malloy Crit Value Read Back Y Blood Gas Notified Time 1641 Potassium Carbon Dioxide Anion Gap BUN Creatinine Est GFR ( Amer) Est GFR (Non-Af Amer) POC Glucose (mg/dL) 188 H Random Glucose Calcium Phosphorus Magnesium Total Bilirubin AST ALT Alkaline Phosphatase Troponin I NT-Pro-B Natriuret Pep Total Protein Albumin Globulin Albumin/Globulin Ratio Arterial Blood Potassium 4.4 Blood Type Antibody Screen BBK History Checked 10/07/17 10/07/17 10/07/17 16:35 16:35 16:35 WBC RBC Hgb Hct MCV MCH MCHC RDW Plt Count MPV Neut % (Auto) Lymph % (Auto) [place] % (Auto) Eos % (Auto) Baso % (Auto) Neut # (Auto) Lymph # (Auto) [place] # (Auto) Eos # (Auto) Baso # (Auto) PT 13.3 H INR 1.2 APTT 34.1 pCO2 pO2 HCO3 ABG pH ABG Total CO2 ABG O2 Saturation ABG Base Excess Scout Test ABG Potassium A-a O2 Difference Sodium 138 Chloride 99 Glucose Lactate FiO2 Crit Value Called To Crit Value Called By Crit Value Read Back Blood Gas Notified Time Potassium 4.9 Carbon Dioxide 25 Anion Gap 19 BUN 21 H Creatinine 1.0 Est GFR ( Amer) > 60 Est GFR (Non-Af Amer) > 60 POC Glucose (mg/dL) Random Glucose 203 H Calcium 10.0 Phosphorus 5.7 H Magnesium 1.7 Total Bilirubin 1.2 AST 64 H ALT 42 Alkaline Phosphatase 84 Troponin I 1.1400 H* NT-Pro-B Natriuret Pep 4320 H Total Protein 7.9 Albumin 4.7 Globulin 3.3 Albumin/Globulin Ratio 1.4 Arterial Blood Potassium Blood Type A POSITIVE Antibody Screen Negative BBK History Checked Patient has bt - Imaging and Cardiology CT scan - chest Status: Report reviewed by me Additional comment: Time: [address] RESULTS FINDINGS: Lungs: See below. Pleural space: There is a large left pneumothorax, approximately 40% of the lung collapsed. Underlying severe centrilobular emphysema and multifocal linear well scarring or atelectasis with several nodular densities in the lung apices. Questionable 22 mm spiculated lesion in the right apex, versus chronic scarring. No significant effusion. Heart: There is coronary artery calcification. No significant pericardial effusion. Bones/joints: Unremarkable. No acute fracture. No dislocation. Soft tissues: Unremarkable. Vasculature: Unremarkable. No thoracic aortic aneurysm. Lymph nodes: Unremarkable. No enlarged lymph nodes. IMPRESSION: Large left pneumothorax. Questionable spiculated lesion in the left lung apex. Further evaluation recommended. Chest x-ray Status: Image reviewed by me Additional comment: The X Ray showed what appears to be a Bulla at the left base. Assessment & Plan - Assessment and Plan (Free Text) Assessment: #. Left Pneumothorax #. COPD Exacerbation #. A Fib with Rapid Response #. DM II with hyperglycemia #. HTN uncontrolled #. Lung Nodule s/p Lung bx Plan: 76 years old male with hx of COPD with Emphysema, A Fib DM II and a lung nodule which was biopsied 10/04/17 , 3 days ago at [facility].Comes with worsening post Bx SOB with difficulty to speak and diaphoretic.In the ED he also had an irregular HR of 130s/min and was treated with IV Cardizem. #. Left Pneumothorax s/p lung Bx on 10/04/17 - Surgery Dr Justice consulted and Left chest tube inserted and connected to Pneumovac - #. COPD Exacerbation - Dr Hameed assembler show motor Consulted - Spiriva - Albuterol - O2 via n/c - follow ABG #. A Fib with Rapid Response - Dr Last director digital sales Consulted - Cardizem Drip titrate to HR<100 - Hold Coumadin as per cardiology #. DM II with hyperglycemia - Regular Insulin sliding scale according To accucheck - Levemir - Prandin #. HTN uncontrolled - Losartan - HCTZ #. Elevated Pro BNP and Troponin possible due to heart strain during the Tachycardia an dthe Pneumothorax - Serial Troponin - Dr Last on consult #. Lung Nodule s/p Lung bx - Results PND at [facility] #. DVT prophylaxis with SCD - Date & Time Date: 10/07/17 Time: 19:57
[2017-10-07] MEDS ORDERED: Fluticasone-Salmeterol 500-50mcg Diskus IH SCH (21:00)
[2017-10-07] MEDS: Insulin Detemir 100 Units/ml Inj SC SCH (21:54)
[2017-10-07 22:46] LABS: ABG ALLEN TEST YES; ARTERIAL BLOOD GAS HCO3 23.7 mmol/L (21-28); ARTERIAL BLOOD GAS HEMOGLOBIN 14.8 g/dL (11.7-17.4); ARTERIAL BLOOD GAS O2 CAPACITY 19.7 mL/dL (16-24); ARTERIAL BLOOD GAS O2 CONTENT 19.7 ML/dL (15-23); ARTERIAL BLOOD GAS O2 SAT 99.9 % (95-98); ARTERIAL BLOOD GAS PCO2 44 mm/Hg (35-45); ARTERIAL BLOOD GAS PH 7.35 (7.35-7.45); ARTERIAL BLOOD GAS PO2 86 mm/Hg (80-100); ARTERIAL BLOOD GAS TCO2 25.7 mmol/L (22-28)
[2017-10-07] MEDS ORDERED: Albuterol-Ipratrop 3 mg / 0.5 (3 ml) UD INH PRN (23:07)
[2017-10-08 04:35] LABS: HEMOGLOBIN 12.2 g/dL (12.0-18.0); LYMPH # 0.5 K/uL (1.0-4.3); LYMPH % 6.9 % (20.0-40.0); MEAN CELL VOLUME 91.3 fl (80.0-94.0); MEAN CORPUSCULAR HEMOGLOBIN 32.6 pg (27.0-31.0); MEAN CORPUSCULAR HGB CONC 35.7 g/dL (33.0-37.0); MONO # 0.1 K/uL (0.0-0.8); MONO % 1.4 % (0.0-10.0); NEUT # 6.7 K/uL (1.8-7.0); NEUT % 91.7 % (50.0-75.0); NRBC % 0.1 % (0.0-0.0); PLATELET COUNT 226 K/uL (130-400); RBC 3.75 Mil/uL (4.40-5.90); RED CELL DISTRIBUTION WIDTH 13.7 % (11.5-14.5); WHITE BLOOD COUNT 7.3 K/uL (4.8-10.8)
[2017-10-08 05:08] LABS: ALB/GLOB RATIO 1.2 (1.0-2.1); ALBUMIN 3.2 g/dL (3.5-5.0); ALT/SGPT 41 U/L (21-72); AST/SGOT 48 U/L (17-59); BLOOD UREA NITROGEN 26 mg/dl (9-20); GFR AFRICAN-AMERICAN > 60; GFR NON-AFRICAN AMERICAN > 60
[2017-10-08 05:19] LABS: LYMPHOCYTE 8 % (20-50); MONOCYTE 1 % (0-10); NEUTROPHIL 91 % (42-75); TOTAL CELLS COUNTED 100
[2017-10-08 05:20] LABS: PLATELET ESTIMATE NORMAL (NORMAL)
[2017-10-08] MEDS: Sodium Chloride 0.9% 1,000 ML IV SCH (05:51)
--- NOTE | 2017-10-08 07:38 | CP.PCM.PN ---
Subjective - Date & Time of Evaluation Date of Evaluation: 10/08/17 Time of Evaluation: 07:36 - Subjective Subjective: CT Surgery progress note for Dr. Appel Garcia, PGY-2 Pt S & E at bedside at 0710 Pt reports improved breathing, not feeling like he can't speak due to SOB. States that he slept poorly- due to activity in ED. Per nursing- pt with some discomfort overnight, with movement or Chest tube output- 32cc serosanguious Objective - Vital Signs/Intake and Output Vital Signs (last 24 hours): Temp Pulse Resp BP Pulse Ox 97.4 F L 109 H 20 151/80 H 99 10/07/17 19:21 10/08/17 05:49 10/08/17 05:49 10/08/17 05:49 10/08/17 05:49 - Medications Medications: Current Medications Acetaminophen (Tylenol 325mg Tab) 650 mg PO Q6H PRN PRN Reason: Pain, Mild (1-3) Last Admin: 10/08/17 00:25 Dose: 650 mg Albuterol (Ventolin Hfa 90 Mcg/Actuation (8 G)) 2 puff IH Q6 PRN PRN Reason: Shortness of Breath Albuterol/Ipratropium (Duoneb 3 Mg/0.5 Mg (3 Ml) Ud) 3 ml INH RQ4 PRN PRN Reason: Shortness of Breath Atorvastatin Calcium (Lipitor) 40 mg PO DAILY@2100 [facility] Last Admin: 10/07/17 21:51 Dose: 40 mg Dextrose (Dextrose 50% Inj) 0 ml IV STAT PRN; Protocol PRN Reason: Hypoglycemia Protocol Dextrose (Glutose 15) 0 gm PO ONCE PRN; Protocol PRN Reason: Hypoglycemia Protocol Famotidine (Pepcid) 20 mg PO DAILY [facility] Finasteride (Proscar) 5 mg PO DAILY [facility] Gabapentin (Neurontin) 300 mg PO HS [facility] Last Admin: 10/07/17 21:52 Dose: 300 mg Glucagon (Glucagen Diagnostic Kit) 0 mg IM STAT PRN; Protocol PRN Reason: Hypoglycemia Protocol Hydrochlorothiazide (Microzide) 12.5 mg PO DAILY [facility] Insulin Detemir (Levemir) 10 units [facility] Last Admin: 10/07/17 21:54 Dose: 10 units Ketorolac Tromethamine (Toradol) 15 mg IVP Q6H PRN PRN Reason: Pain, moderate (4-7) Last Admin: 10/07/17 19:59 Dose: 15 mg Losartan Potassium (Cozaar) 50 mg PO DAILY [facility] Repaglinide (Prandin) 2 mg PO TID [facility] Fluticasone/Salmeterol (Advair Diskus 500/50) 1 puff IH Q12 [facility] Last Admin: 10/07/17 21:49 Dose: 1 puff Tiotropium [place] (Spiriva) 18 mcg INH DAILY [facility] - Labs Labs: 10/08/17 04:25 10/08/17 04:25 PT 13.3 Seconds (9.8-13.1) H 10/07/17 16:35 INR 1.2 10/07/17 16:35 APTT 34.1 Seconds (25.6-37.1) 10/07/17 16:35 - Constitutional Appears: Non-toxic, No Acute Distress - Head Exam Head Exam: ATRAUMATIC, NORMAL INSPECTION, NORMOCEPHALIC - Eye Exam Eye Exam: EOMI, Normal appearance - ENT Exam ENT Exam: Mucous Membranes Moist, Normal Exam - Neck Exam Neck Exam: Full ROM, Normal Inspection - Respiratory Exam Respiratory Exam: NORMAL BREATHING PATTERN. absent: Accessory Muscle Use, Respiratory Distress Additional comments: Left midaxillary dressing clean/dry/intact, no whistling noted - Cardiovascular Exam Cardiovascular Exam: REGULAR RHYTHM, +S1, +S2 - GI/Abdominal Exam GI & Abdominal Exam: Soft. absent: Distended, Firm, Guarding, Rigid, Tenderness - Extremities Exam Extremities Exam: Normal Inspection - Neurological Exam Neurological Exam: Alert, Awake, CN II-XII Intact, Oriented x3 - Psychiatric Exam Psychiatric exam: Normal Affect, Normal Mood - Skin Skin Exam: Dry, Normal Color, Warm Assessment and Plan - Assessment and Plan (Free Text) Assessment: 76M w/L pneumothorax s/p L chest tube insertion POD#1 AM CXR - left pnemothorax appears to be improved- awaiting official read Plan: Monitor Chest tube output Daily CXR Encourage IS use Chest tube to continuous wall suction- 80mmHg Pain control PRN Further mgmt as per primary team Will ALEXANDRO attending Radha, PGY-2
--- NOTE | 2017-10-08 08:02 | RAD ---
Date of service: 10/07/2017 HISTORY: sob COMPARISON: No prior. FINDINGS: LUNGS: No active pulmonary disease. PLEURA: No significant pleural effusion identified, no pneumothorax apparent. CARDIOVASCULAR: Normal. OSSEOUS STRUCTURES: No significant abnormalities. VISUALIZED UPPER ABDOMEN: Normal. OTHER FINDINGS: None. IMPRESSION: No active disease.
--- NOTE | 2017-10-08 08:13 | RAD ---
Date of service: 10/07/2017 HISTORY: post thoracostomy COMPARISON: No prior. FINDINGS: LUNGS: Nodular density in the right upper lobe. Left chest tube in place. PLEURA: No significant pleural effusion identified, no pneumothorax apparent. CARDIOVASCULAR: Normal. OSSEOUS STRUCTURES: No significant abnormalities. VISUALIZED UPPER ABDOMEN: Normal. OTHER FINDINGS: None. IMPRESSION: Nodular density in the right upper lobe. Left chest tube in place.
--- NOTE | 2017-10-08 08:27 | RAD ---
Date of service: 10/08/2017 HISTORY: Follow up left Chest Tube placement and Pneumothor COMPARISON: FINDINGS: LUNGS: Interstitial changes with probable fibrosis in the right upper lobe. PLEURA: Left chest tube in place. Probably persistent small left pneumothorax. CARDIOVASCULAR: Normal. OSSEOUS STRUCTURES: No significant abnormalities. VISUALIZED UPPER ABDOMEN: Normal. OTHER FINDINGS: None. IMPRESSION: Interstitial changes with probable fibrosis in the right upper lobe. Probably persistent small left pneumothorax.
--- NOTE | 2017-10-08 08:39 | CT ---
Date of service: 10/07/2017 PROCEDURE: CT Chest without contrast HISTORY: sob ptx v bleb COMPARISON: None available. TECHNIQUE: Contiguous axial images were obtained through the chest without intravenous contrast enhancement. Sagittal and coronal reconstructions were performed. Radiation dose (DLP): mGy-cm. This CT exam was performed using one or more of the following dose reduction techniques: Automated exposure control, adjustment of the mA and/or kV according to patient size, and/or use of iterative reconstruction technique. FINDINGS: LUNGS: Bilateral interstitial fibrotic changes with severe emphysema. MEDIASTINUM: Unremarkable thoracic aorta. No aneurysm. Normal sized heart. Main pulmonary artery unremarkable. No vascular congestion. No lymphadenopathy. PLEURA: Large left pneumothorax. Questionable spiculated lesion in the left lung apex. Recommend follow-up. BONES: No fracture. No destructive lesion. UPPER ABDOMEN: Grossly unremarkable. OTHER FINDINGS: None. IMPRESSION: Large left pneumothorax. Questionable spiculated lesion in the left lung apex. Recommend follow-up.
--- NOTE | 2017-10-08 08:48 | CARD ---
APPROVED REPORT Date of service: 10/07/2017 <Conclusion> Atrial fibrillation with rapid ventricular rhythm Low voltage QRS Marked ST abnormality, possible inferior subendocardial injury Abnormal ECG
[2017-10-08] MEDS ORDERED: Tiotropium 18 mcg Cap For Inhalation INH SCH (09:00)
[2017-10-08] MEDS ORDERED: Famotidine 40 MG/5 ML PO SCH (09:00)
[2017-10-08] MEDS ORDERED: Levalbuterol 0.63 MG/3 ML Inhal Soln UD INH PRN (09:07)
--- NOTE | 2017-10-08 10:18 | CP.PCM.CON ---
History of Present Illness - History of Present Illness History of Present Illness: This 76-year- old man is well-known to me. He has a long history of severe COPD and recently underwent a needle biopsy of a pulmonary nodule which has resulted in pneumothorax on the left side. The patient urgently came into the emergency room profoundly short of breath and has had a chest tube put in. The patient is also diabetic and has had atrial fibrillation since 2012 which was being managed with digoxin and oral anticoagulation using warfarin. Digoxin was withdrawn in May of this year when brief pauses were detected on his cafeteria monitor. The patient has never experienced any syncope. Physical examination shows an elderly thin built anxious man who is alert awake coherent quite short of breath with a respiratory rate in the range of 20-22 breaths per minute. His heart rate was 120 bpm irregularly irregular and his blood pressure was 180/70 mmHg. His jugular venous pressure was not elevated there was no edema over his lower extremities. The patient was on oxygen supplement. His pulse oximetry showed a oxygen saturation of 98%. A left chest tube was in place. The apex was not palpable the heart sounds were slightly distant but normal. His EKG at admission revealed atrial fibrillation with poor R-wave progression from V1 to V5 3. Review of his echocardiogram from May of this year revealed a preserved left ventricular systolic function. His lab data was noted. Elevated troponin were strongly suggestive off tachycardia induced myocyte injury. Impression: Pneumothorax on the left side secondary to needle biopsy of a pulmonary nodule. Severe COPD with extremely poor respiratory reserve. Chronic atrial fibrillation and diabetes mellitus. I have discussed his case with the bass fisher and if the patient continues to display tachycardia will have a Cardizem bolus followed by Cardizem drip to control his heart rate. I have requested an additional electrocardiogram to reevaluate the abnormal findings . Past Patient History - Past Medical History & Family History Past Medical History?: Yes - Past Social History Smoking Status: Former Smoker - CARDIAC Hx Atrial Fibrillation: Yes Hx Hypercholesterolemia: Yes Hx Hypertension: Yes - PULMONARY Hx Chronic Obstructive Pulmonary Disease (COPD): Yes Hx Emphysema: Yes Hx Pneumonia: Yes - NEUROLOGICAL Hx Neurological Disorder: No - HEENT Hx HEENT Problems: No - RENAL Hx Chronic Kidney Disease: Yes - ENDOCRINE/METABOLIC Hx Diabetes Mellitus Type 2: Yes - HEMATOLOGICAL/ONCOLOGICAL Hx Human Immunodeficiency Virus (HIV): No - INTEGUMENTARY Hx Dermatological Problems: No - MUSCULOSKELETAL/RHEUMATOLOGICAL Hx Musculoskeletal Disorders: No - GASTROINTESTINAL Hx Gastrointestinal Disorders: No - GENITOURINARY/GYNECOLOGICAL Hx Genitourinary Disorders: Yes - PSYCHIATRIC Hx Psychophysiologic Disorder: No - SURGICAL HISTORY Hx Surgeries: Yes Other/Comment: LUNG SX . BACK SX - ANESTHESIA Hx Anesthesia: Yes Hx Anesthesia Reactions: No Hx Malignant Hyperthermia: No Meds Allergies/Adverse Reactions: Allergies Allergy/AdvReac Type Severity Reaction Status Date / Time hydromorphone Allergy Mild RASH Verified 05/18/17 11:44 - Medications Medications: Current Medications Acetaminophen (Tylenol 325mg Tab) 650 mg PO Q6H PRN PRN Reason: Pain, Mild (1-3) Last Admin: 10/08/17 00:25 Dose: 650 mg Albuterol (Ventolin Hfa 90 Mcg/Actuation (8 G)) 2 puff IH Q6 PRN PRN Reason: Shortness of Breath Albuterol/Ipratropium (Duoneb 3 Mg/0.5 Mg (3 Ml) Ud) 3 ml INH RQID [facility] Atorvastatin Calcium (Lipitor) 40 mg PO DAILY@2100 [facility] Last Admin: 10/07/17 21:51 Dose: 40 mg Dextrose (Dextrose 50% Inj) 0 ml IV STAT PRN; Protocol PRN Reason: Hypoglycemia Protocol Dextrose (Glutose 15) 0 gm PO ONCE PRN; Protocol PRN Reason: Hypoglycemia Protocol Famotidine (Pepcid) 20 mg PO DAILY [facility] Finasteride (Proscar) 5 mg PO DAILY [facility] Gabapentin (Neurontin) 300 mg PO HS [facility] Last Admin: 10/07/17 21:52 Dose: 300 mg Glucagon (Glucagen Diagnostic Kit) 0 mg IM STAT PRN; Protocol PRN Reason: Hypoglycemia Protocol Hydrochlorothiazide (Microzide) 12.5 mg PO DAILY [facility] Insulin Detemir (Levemir) 10 units SC HS [facility] Last Admin: 10/07/17 21:54 Dose: 10 units Ketorolac Tromethamine (Toradol) 15 mg IVP Q6H PRN PRN Reason: Pain, moderate (4-7) Last Admin: 10/08/17 08:17 Dose: 15 mg Levalbuterol HCl (Xopenex) 0.63 mg INH RQ4 PRN PRN Reason: Shortness of Breath Losartan Potassium (Cozaar) 50 mg PO DAILY [facility] Repaglinide (Prandin) 2 mg PO TID [facility] Results - Vital Signs Recent Vital Signs: Last Vital Signs Temp 97.9 F 10/08/17 07:41 Pulse 95 H 10/08/17 07:41 Resp 17 10/08/17 07:41 BP 153/74 H 10/08/17 07:41 Pulse Ox 100 10/08/17 07:41 - Labs Result Diagrams: 10/08/17 04:25 10/08/17 04:25 Labs: Laboratory Results - last 24 hr 10/07/17 10/07/17 10/07/17 16:24 16:32 16:35 WBC 13.6 H D RBC 4.71 Hgb 14.9 Hct 43.7 MCV 92.9 MCH 31.7 H MCHC 34.1 RDW 14.1 Plt Count 362 MPV 7.4 Neut % (Auto) 68.8 Lymph % (Auto) 21.8 [place] % (Auto) 8.2 Eos % (Auto) 0.8 Baso % (Auto) 0.4 Neut # (Auto) 9.3 H Lymph # (Auto) 3.0 [place] # (Auto) 1.1 H Eos # (Auto) 0.1 Baso # (Auto) 0.0 Neutrophils % (Manual) Lymphocytes % (Manual) Monocytes % (Manual) Platelet Estimate PT INR APTT pCO2 73 H* pO2 111 H HCO3 23.8 ABG pH 7.20 L ABG Total CO2 30.7 H ABG O2 Saturation 100.5 H ABG O2 Content ABG Base Excess -1.4 ABG Hemoglobin ABG Carboxyhemoglobin POC ABG HHb (Measured) ABG Methemoglobin ABG O2 Capacity Scout Test Yes ABG Potassium 4.4 A-a O2 Difference 54.0 Hgb O2 Saturation Sodium 134.0 Chloride 98.0 Glucose 217 H Lactate 2.6 H Vent Mode FiO2 36.0 Crit Value Called To margot Ott md Crit Value Called By [facility] Crit Value Read Back Y Blood Gas Notified Time 1641 Potassium Carbon Dioxide Anion Gap BUN Creatinine Est GFR ( Amer) Est GFR (Non-Af Amer) POC Glucose (mg/dL) 188 H Random Glucose Calcium Phosphorus Magnesium Total Bilirubin AST ALT Alkaline Phosphatase Troponin I NT-Pro-B Natriuret Pep Total Protein Albumin Globulin Albumin/Globulin Ratio Arterial Blood Potassium 4.4 Blood Type Antibody Screen BBK History Checked 10/07/17 10/07/17 10/07/17 16:35 16:35 16:35 WBC RBC Hgb Hct MCV MCH MCHC RDW Plt Count MPV Neut % (Auto) Lymph % (Auto) [place] % (Auto) Eos % (Auto) Baso % (Auto) Neut # (Auto) Lymph # (Auto) [place] # (Auto) Eos # (Auto) Baso # (Auto) Neutrophils % (Manual) Lymphocytes % (Manual) Monocytes % (Manual) Platelet Estimate PT 13.3 H INR 1.2 APTT 34.1 pCO2 pO2 HCO3 ABG pH ABG Total CO2 ABG O2 Saturation ABG O2 Content ABG Base Excess ABG Hemoglobin ABG Carboxyhemoglobin POC ABG HHb (Measured) ABG Methemoglobin ABG O2 Capacity Scout Test ABG Potassium A-a O2 Difference Hgb O2 Saturation Sodium 138 Chloride 99 Glucose Lactate Vent Mode FiO2 Crit Value Called To Crit Value Called By Crit Value Read Back Blood Gas Notified Time Potassium 4.9 Carbon Dioxide 25 Anion Gap 19 BUN 21 H Creatinine 1.0 Est GFR ( Amer) > 60 Est GFR (Non-Af Amer) > 60 POC Glucose (mg/dL) Random Glucose 203 H Calcium 10.0 Phosphorus 5.7 H Magnesium 1.7 Total Bilirubin 1.2 AST 64 H ALT 42 Alkaline Phosphatase 84 Troponin I 1.1400 H* NT-Pro-B Natriuret Pep 4320 H Total Protein 7.9 Albumin 4.7 Globulin 3.3 Albumin/Globulin Ratio 1.4 Arterial Blood Potassium Blood Type A POSITIVE Antibody Screen Negative BBK History Checked Patient has bt 10/07/17 10/08/17 10/08/17 22:37 04:25 04:25 WBC 7.3 RBC 3.75 L Hgb 12.2 D Hct 34.3 L MCV 91.3 MCH 32.6 H MCHC 35.7 RDW 13.7 Plt Count 226 D MPV 7.0 L Neut % (Auto) 91.7 H Lymph % (Auto) 6.9 L [place] % (Auto) 1.4 Eos % (Auto) 0.0 Baso % (Auto) 0.0 Neut # (Auto) 6.7 Lymph # (Auto) 0.5 L [place] # (Auto) 0.1 Eos # (Auto) 0.0 Baso # (Auto) 0.0 Neutrophils % (Manual) 91 H Lymphocytes % (Manual) 8 L Monocytes % (Manual) 1 Platelet Estimate Normal PT INR APTT pCO2 44 pO2 86 HCO3 23.7 ABG pH 7.35 ABG Total CO2 25.7 ABG O2 Saturation 99.9 H ABG O2 Content 19.7 ABG Base Excess -1.5 ABG Hemoglobin 14.8 ABG Carboxyhemoglobin 3.1 H POC ABG HHb (Measured) 0.1 ABG Methemoglobin 2.5 ABG O2 Capacity 19.7 Scout Test Yes ABG Potassium A-a O2 Difference 59.0 Hgb O2 Saturation 94.3 L Sodium 139 Chloride 106 Glucose Lactate Vent Mode 2lnc FiO2 28.0 Crit Value Called To Crit Value Called By Crit Value Read Back Blood Gas Notified Time Potassium 4.2 Carbon Dioxide 25 Anion Gap 12 BUN 26 H Creatinine 0.9 Est GFR ( Amer) > 60 Est GFR (Non-Af Amer) > 60 POC Glucose (mg/dL) Random Glucose 151 H Calcium 8.0 L Phosphorus Magnesium Total Bilirubin 0.7 AST 48 ALT 41 Alkaline Phosphatase 55 Troponin I 0.8600 H* NT-Pro-B Natriuret Pep Total Protein 5.9 L Albumin 3.2 L D Globulin 2.6 Albumin/Globulin Ratio 1.2 Arterial Blood Potassium Blood Type Antibody Screen BBK History Checked
--- NOTE | 2017-10-08 10:26 | CARD ---
APPROVED REPORT Date of service: 10/08/2017 <Conclusion> Atrial fibrillation with rapid ventricular response with premature ventricular or aberrantly conducted complexes Low voltage QRS Cannot rule out Anteroseptal infarct, age undetermined ST & T wave abnormality, consider inferior ischemia Abnormal ECG
--- NOTE | 2017-10-08 10:57 | RAD ---
Date of service: 10/08/2017 HISTORY: chest tube,SOB COMPARISON: No prior. FINDINGS: LUNGS: Bilateral fibrotic change. PLEURA: Left chest tube in place with persistent pneumothorax. CARDIOVASCULAR: Normal. OSSEOUS STRUCTURES: No significant abnormalities. VISUALIZED UPPER ABDOMEN: Normal. OTHER FINDINGS: None. IMPRESSION: Left chest tube in place with persistent pneumothorax.
[2017-10-08] MEDS: Albuterol-Ipratrop 3 mg / 0.5 (3 ml) UD INH SCH ×3 (11:45→19:25)
--- NOTE | 2017-10-08 13:32 | CP.PCM.PN ---
Subjective - Date & Time of Evaluation Date of Evaluation: 10/08/17 Time of Evaluation: 13:30 - Subjective Subjective: Patient seen and examined at bedside. His breathing continues to be labored and he expresses anxiety over pending lung biopsy results. He states that he is feeling better. and son at bedside. Chest tube in place and draining serosanguinous fluid. Labs, charts, and nurse notes reviewed. He denies chest pain, palpitations, headaches, numbness/tingling. Objective - Vital Signs/Intake and Output Vital Signs (last 24 hours): Temp Pulse Resp BP Pulse Ox 98.9 F 120 H 19 153/81 H 97 10/08/17 12:00 10/08/17 12:08 10/08/17 12:08 10/08/17 12:08 10/08/17 12:08 - Medications Medications: Current Medications Acetaminophen (Tylenol 325mg Tab) 650 mg PO Q6H PRN PRN Reason: Pain, Mild (1-3) Last Admin: 10/08/17 00:25 Dose: 650 mg Albuterol (Ventolin Hfa 90 Mcg/Actuation (8 G)) 2 puff IH Q6 PRN PRN Reason: Shortness of Breath Albuterol/Ipratropium (Duoneb 3 Mg/0.5 Mg (3 Ml) Ud) 3 ml INH RQID [facility] Last Admin: 10/08/17 11:45 Dose: 3 ml Atorvastatin Calcium (Lipitor) 40 mg PO DAILY@2100 [facility] Last Admin: 10/07/17 21:51 Dose: 40 mg Dextrose (Dextrose 50% Inj) 0 ml IV STAT PRN; Protocol PRN Reason: Hypoglycemia Protocol Dextrose (Glutose 15) 0 gm PO ONCE PRN; Protocol PRN Reason: Hypoglycemia Protocol Famotidine (Pepcid) 20 mg PO DAILY [facility] Finasteride (Proscar) 5 mg PO DAILY [facility] Gabapentin (Neurontin) 300 mg PO [facility] Last Admin: 10/07/17 21:52 Dose: 300 mg Glucagon (Glucagen Diagnostic Kit) 0 mg IM STAT PRN; Protocol PRN Reason: Hypoglycemia Protocol Hydrochlorothiazide (Microzide) 12.5 mg PO DAILY [facility] Insulin Detemir (Levemir) 10 units SC [facility] Last Admin: 10/07/17 21:54 Dose: 10 units Ketorolac Tromethamine (Toradol) 15 mg IVP Q6H PRN PRN Reason: Pain, moderate (4-7) Last Admin: 10/08/17 08:17 Dose: 15 mg Levalbuterol HCl (Xopenex) 0.63 mg INH RQ4 PRN PRN Reason: Shortness of Breath Losartan Potassium (Cozaar) 50 mg PO DAILY [facility] Repaglinide (Prandin) 2 mg PO TID [facility] - Labs Labs: 10/08/17 04:25 10/08/17 04:25 PT 13.3 Seconds (9.8-13.1) H 10/07/17 16:35 INR 1.2 10/07/17 16:35 APTT 34.1 Seconds (25.6-37.1) 10/07/17 16:35 - Constitutional Appears: No Acute Distress, Older Than Stated Age - Head Exam Head Exam: ATRAUMATIC - Eye Exam Eye Exam: Normal appearance - Respiratory Exam Respiratory Exam: Decreased Breath Sounds (L>R), Respiratory Distress (mild). absent: Rhonchi, Wheezes Additional comments: Left chest tube in place w/ continuos suctioning, Output of serosanguineous 45 ccs at time of exam, dressing dry clean and intact - Cardiovascular Exam Cardiovascular Exam: Tachycardia, Irregular Rhythm, +S1, +S2. absent: JVD, Rubs - GI/Abdominal Exam GI & Abdominal Exam: Soft, Normal Bowel Sounds. absent: Tenderness - Extremities Exam Extremities Exam: Normal Inspection. absent: Joint Swelling, Pedal Edema, Tenderness - Neurological Exam Neurological Exam: Alert, Awake, Oriented x3 - Psychiatric Exam Psychiatric exam: Anxious - Skin Skin Exam: Dry, Intact, Normal Color, Warm Assessment and Plan - Assessment and Plan (Free Text) Assessment: 76 y/o male w/ pmhx of HTN, COPD, DM2, atrial fibrillation, and hx of lung admitted for left pneumothorax, which developed s/p lung biopsy, now s/p chest tube placement Left lung Pneumothorax - s/pod #1 chest tube placement - s/p Left lung biopsy at [facility] on 10/04/17 - CT Chest: Left lung Pneumothorax, 40% lung collapsed - Pulmonary Consult, Dr. Hameed, appreciate recs - Thoracic Surgery Consult, Dr. Justice, Recommendations appreciated - Continue monitoring respiratory status: Patient is on Non-rebreather mask. - Will follow up w/ Chest CT w/ contrast in the AM Atrial Fibrillation - Chronic, asymptomatic - Dr. Last following - Coumadin held per Dr. Last, latest INR 10/07/17 1.2 - was previously on digoxin, but this was d/c by Dr. Last in May due to detection of brief pauses EKG - no beta blockers as patient has limited respiratory reserve - Will start cardizam 30 mg PO Q6 if HR >100, hold for HR <60 and systolic BP < 110 COPD - Chronic, Controlled - Pulm Dr. Hameed following, appreciate recs - C/w Albuterol Q6H [facility], Advir Q12, Spiriva 18mcg INH, Xopenex PRN Respiratory Acidosis with elevated Lactate - resolved - Possibly due to Pneumothorax vs chronic conditions - On high flow O2 per pulm Elevated ProBNP and Troponin - last echo in May showed EF 40-40%. However, per Dr. Last, patient has preserved left ventricular systolic function and elevated troponins are likely 2 /2 tachycardia induced myocyte injury -EKG findings likely 2/2 pneumothorax shifting mediastinum -will re-check an echo once tachycardia resolves Left Lung Nodule, S/p Lung Biopsy on 10/04/17 at [facility] - Results pending Diabetes Mellitus type 2 - Controlled - Last HBA1C: 7.7 on 05/2017 - C/w Levemir 10 U HS - C/w Repaglinide 2mg TID - Hypoglycemic treatment protocol - AccuChecks ACHS - Diet: heart healthy, diabetic consistent carbs Hypertension - uncontrolled - Losartan and HCTZ held today as Cardizem was administered today - If BP elevated, will resume Losartan HLD -Chronic controlled - C/w home med atorvastatin 40mg DVT Prophylaxis - SCDs for now, possible surgical procedure tomorrow -holding off on anti-coagulation therapy as risk of anticoagulation outweighs benefits due to risk of development of hemothorax -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
--- NOTE | 2017-10-08 14:24 | CP.PCM.PN ---
Subjective - Date & Time of Evaluation Date of Evaluation: 10/08/17 Time of Evaluation: 14:12 - Subjective Subjective: Reason for consultation: Left Pneumothorax. REquested by Dr. Lopez, ER. Progress notes and imaging studies reviewed and pt s/e and discussed treatment plan with pt and his . 76 yo male with multiple comorbities presented to ER last night with sob following percutaneous transthoracic bx of a slowly growing lung nodule,left apex on 10/04/17. Although cxr failed to show left pneumothorax, ct confirmed >50 % left pneumothorax. A 28f chest tube was inserted in the ER, but follow cxrs continue to show minimal left pneumothorax. I would like to have ct with contrast tomorrow morning to better assess the status of pneumothorax,as the pt has a large air leak. d/w Padmini Clemons and . a/p: 1. Left pneumothorax following lung Percutaneous transthoracic lung bx. 2. s/p a Tube thoracostomy. 3. Persistent left pneumothorax and air leak. 4. ct chest with contrast in am tomorrow. 5. Furhter Rx plan based on ct findings. Objective - Vital Signs/Intake and Output Vital Signs (last 24 hours): Temp Pulse Resp BP Pulse Ox 98.9 F 120 H 19 153/81 H 97 10/08/17 12:00 10/08/17 12:08 10/08/17 12:08 10/08/17 12:08 10/08/17 12:08 - Medications Medications: Current Medications Acetaminophen (Tylenol 325mg Tab) 650 mg PO Q6H PRN PRN Reason: Pain, Mild (1-3) Last Admin: 10/08/17 00:25 Dose: 650 mg Albuterol (Ventolin Hfa 90 Mcg/Actuation (8 G)) 2 puff IH Q6 PRN PRN Reason: Shortness of Breath Albuterol/Ipratropium (Duoneb 3 Mg/0.5 Mg (3 Ml) Ud) 3 ml INH RQID [facility] Last Admin: 10/08/17 11:45 Dose: 3 ml Atorvastatin Calcium (Lipitor) 40 mg PO DAILY@2100 [facility] Last Admin: 10/07/17 21:51 Dose: 40 mg Dextrose (Dextrose 50% Inj) 0 ml IV STAT PRN; Protocol PRN Reason: Hypoglycemia Protocol Dextrose (Glutose 15) 0 gm PO ONCE PRN; Protocol PRN Reason: Hypoglycemia Protocol Famotidine (Pepcid) 20 mg PO DAILY [facility] Last Admin: 10/08/17 14:08 Dose: 20 mg Finasteride (Proscar) 5 mg PO DAILY [facility] Last Admin: 10/08/17 14:09 Dose: 5 mg Gabapentin (Neurontin) 300 mg PO HS [facility] Last Admin: 10/07/17 21:52 Dose: 300 mg Glucagon (Glucagen Diagnostic Kit) 0 mg IM STAT PRN; Protocol PRN Reason: Hypoglycemia Protocol Hydrochlorothiazide (Microzide) 12.5 mg PO DAILY [facility] Last Admin: 10/08/17 14:04 Dose: Not Given Insulin Detemir (Levemir) 10 units SC HS [facility] Last Admin: 10/07/17 21:54 Dose: 10 units Ketorolac Tromethamine (Toradol) 15 mg IVP Q6H PRN PRN Reason: Pain, moderate (4-7) Last Admin: 10/08/17 08:17 Dose: 15 mg Levalbuterol HCl (Xopenex) 0.63 mg INH RQ4 PRN PRN Reason: Shortness of Breath Last Admin: 10/08/17 13:00 Dose: 0.63 mg Losartan Potassium (Cozaar) 50 mg PO DAILY [facility] Last Admin: 10/08/17 09:30 Dose: Not Given Repaglinide (Prandin) 2 mg PO TID [facility] Last Admin: 10/08/17 14:07 Dose: 2 mg - Labs Labs: 10/08/17 04:25 10/08/17 04:25 PT 13.3 Seconds (9.8-13.1) H 10/07/17 16:35 INR 1.2 10/07/17 16:35 APTT 34.1 Seconds (25.6-37.1) 10/07/17 16:35
--- NOTE | 2017-10-08 16:51 | PN ---
Copied To: Derrell Willis MD Attending MD: Derrell Willis MD DATE: 10/08/2017 CRITICAL CARE PROGRESS NOTE LOCATION: The patient in ICU, bed #434. TIME SPENT: 35 minutes. The patient is seen and evaluated at the bedside. Past medical, surgical, and social history reviewed. SUBJECTIVE: A 76-year-old male with a history of severe chronic obstructive pulmonary disease/emphysema, chronic atrial fibrillation, and diabetes mellitus type 2, noted to have a lung nodule on the left lung, underwent transthoracic needle biopsy at [facility] on 10/04/2017. The patient came to the ED at [facility] ([facility] on 10/07/2017 complaining of shortness of breath. In the ED, the patient was noted to be diaphoretic in respiratory distress. Chest x-ray and CAT scan obtained showed large left pneumothorax, seen by thoracic surgery consult, underwent a chest tube insertion. Postprocedure chest x-ray showed improved lung expansion but persistent small left pneumothorax. This morning, the patient continued to be intermittently in shortness of breath. PHYSICAL EXAMINATION: VITAL SIGNS: Temperature 98, heart rate 95-104, blood pressure 141-153/74-96, respiratory rate 24, saturation 99% on 3 L, currently on 40% VentiMask. Intake and output not documented. Weight 150 pounds. HEAD, EYES, EARS, NOSE, AND THROAT: Pupils equal, round, and reactive to light and accommodation. Extraocular muscles are intact. Conjunctivae are pink, sclerae are white. NECK: Supple. Trachea central. CHEST: Bilateral breath sounds, diminished in intensity, more so on the left than the right. Left chest tube in place. No subcutaneous emphysema. CURRENT MEDICATIONS: Tylenol 650 mg every 6 hours p.r.n., Lipitor 40 mg p.o. daily, dextrose 50% p.r.n. for hypoglycemia, Pepcid 20 mg daily, Proscar 5 mg p.o. daily, Neurontin 20 mg p.o. daily, Levemir 10 units subcutaneously at bedtime, Toradol 50 mg IV every 6 hours p.r.n. for pain, Xopenex 0.6 mg every 4 hours p.r.n., losartan 50 mg p.o. daily, and Prandin 2 mg p.o. three times daily. IMPRESSION: 1. Neurologic: Alert and oriented to name, place, and time. 2. Pulmonary: Severe chronic obstructive pulmonary disease. Lung nodule, status post biopsy. Histopathology report pending. Postprocedure large left pneumothorax, status post chest tube insertion. Reposition this morning. Repeat chest x-ray still with residual pneumothorax. Continue oxygen supplement, DuoNeb and Xopenex every 4 hours p.r.n.Noted air leak. 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 Follow with CT chest with Iv contrast in the morning to assess size of residual pneumothorax, and ? BPF 3. Cardiac: History of atrial fibrillation, was on digoxin, stopped due to bradycardia, currently on warfarin, on hold for the procedure. We will hold the anticoagulation for 24 hours and will resume Lovenox 1 mg/kg subcutaneously every 12 hours from evening. Analgesics as needed. 4. Gastrointestinal: No acute issues noted. 5. Endocrine: History of diabetes mellitus type 2, on Prandin 2 mg 3 times daily. 6. Renal: No acute issues noted, no electrolyte abnormalities. 7. Psychiatric: Anxiety related to the underlying disease. Discussed with cardiology consult. RECOMMENDATION: Noted to add Cardizem if tachycardia and hypertension persist. Troponin to be related to tachycardia. Echo report with normal ejection fraction. Derrell Willis MD MTDMarissa
[2017-10-08] MEDS: Insulin Detemir 100 Units/ml Inj SC SCH (21:18)
[2017-10-09] MEDS ORDERED: Sodium Chloride 0.9% 1,000 ML IV SCH ×3 (03:00→10:08)
[2017-10-09 05:40] LABS: BASO % 0.1 % (0.0-2.0); HEMOGLOBIN 12.9 g/dL (12.0-18.0); LYMPH # 1.1 K/uL (1.0-4.3); LYMPH % 5.9 % (20.0-40.0); MEAN CELL VOLUME 92.6 fl (80.0-94.0); MEAN CORPUSCULAR HEMOGLOBIN 31.2 pg (27.0-31.0); MEAN CORPUSCULAR HGB CONC 33.7 g/dL (33.0-37.0); MEAN PLATELET VOLUME 7.4 fl (7.2-11.7); MONO # 1.4 K/uL (0.0-0.8); MONO % 7.3 % (0.0-10.0); NEUT # 16.3 K/uL (1.8-7.0); NEUT % 86.7 % (50.0-75.0); NRBC % 0.2 % (0.0-0.0); RBC 4.13 Mil/uL (4.40-5.90); RED CELL DISTRIBUTION WIDTH 13.9 % (11.5-14.5); WHITE BLOOD COUNT 18.8 K/uL (4.8-10.8)
[2017-10-09 05:57] LABS: ALB/GLOB RATIO 1.3 (1.0-2.1); ALBUMIN 3.8 g/dL (3.5-5.0); ALT/SGPT 44 U/L (21-72); AST/SGOT 98 U/L (17-59); BLOOD UREA NITROGEN 50 mg/dl (9-20); CALCIUM 9.5 mg/dL (8.4-10.2); GFR AFRICAN-AMERICAN > 60; GFR NON-AFRICAN AMERICAN 59
--- NOTE | 2017-10-09 07:35 | CP.PCM.PN ---
Subjective - Date & Time of Evaluation Date of Evaluation: 10/09/17 Time of Evaluation: 07:33 - Subjective Subjective: CT surgery progress note for Dr. Apple Garcia, PGY-2 Pt S & E at bedside at 0710 Pt reports some discomfort over chest tube insertion site. Some SOB this AM. Per nursing- has left sided chest crepitus. Per pt, he had lung biopsy at [place]. CT w/32 cc serosanguious output/12H. O2 Sat 97% at bedside. Objective - Vital Signs/Intake and Output Vital Signs (last 24 hours): Temp Pulse Resp BP Pulse Ox 98.2 F 89 23 154/80 H 100 10/09/17 04:00 10/09/17 06:00 10/09/17 06:00 10/09/17 06:00 10/09/17 06:00 Intake and Output: 10/09/17 10/09/17 06:59 18:59 Intake Total 80 Output Total 500 32 Balance -420 -32 - Medications Medications: Current Medications Acetaminophen (Tylenol 325mg Tab) 650 mg PO Q6H PRN PRN Reason: Pain, Mild (1-3) Last Admin: 10/08/17 00:25 Dose: 650 mg Albuterol (Ventolin Hfa 90 Mcg/Actuation (8 G)) 2 puff IH Q6 PRN PRN Reason: Shortness of Breath Albuterol/Ipratropium (Duoneb 3 Mg/0.5 Mg (3 Ml) Ud) 3 ml INH RQID [facility] Last Admin: 10/08/17 19:25 Dose: 3 ml Atorvastatin Calcium (Lipitor) 40 mg PO DAILY@2100 [facility] Last Admin: 10/08/17 21:18 Dose: 40 mg Dextrose (Dextrose 50% Inj) 0 ml IV STAT PRN; Protocol PRN Reason: Hypoglycemia Protocol Dextrose (Glutose 15) 0 gm PO ONCE PRN; Protocol PRN Reason: Hypoglycemia Protocol Famotidine (Pepcid) 20 mg PO DAILY [facility] Last Admin: 10/08/17 14:08 Dose: 20 mg Finasteride (Proscar) 5 mg PO DAILY [facility] Last Admin: 10/08/17 14:09 Dose: 5 mg Gabapentin (Neurontin) 300 mg PO HS [facility] Last Admin: 10/08/17 21:19 Dose: 300 mg Glucagon (Glucagen Diagnostic Kit) 0 mg IM STAT PRN; Protocol PRN Reason: Hypoglycemia Protocol Hydrochlorothiazide (Microzide) 12.5 mg PO DAILY [facility] Last Admin: 10/08/17 14:04 Dose: Not Given Sodium Chloride (Sodium Chloride 0.9%) 1,000 mls @ 100 mls/hr IV .Q10H [facility] Stop: 10/09/17 12:00 Insulin Detemir (Levemir) 10 units SC HS [facility] Last Admin: 10/08/17 21:18 Dose: 10 units Ketorolac Tromethamine (Toradol) 15 mg IVP Q6H PRN PRN Reason: Pain, moderate (4-7) Last Admin: 10/09/17 06:58 Dose: 15 mg Levalbuterol HCl (Xopenex) 0.63 mg INH RQ4 PRN PRN Reason: Shortness of Breath Last Admin: 10/08/17 13:00 Dose: 0.63 mg Losartan Potassium (Cozaar) 50 mg PO DAILY [facility] Last Admin: 10/08/17 09:30 Dose: Not Given Repaglinide (Prandin) 2 mg PO TID [facility] Last Admin: 10/08/17 17:42 Dose: 2 mg - Labs Labs: 10/09/17 04:45 10/09/17 04:45 PT 13.3 Seconds (9.8-13.1) H 10/07/17 16:35 INR 1.2 10/07/17 16:35 APTT 34.1 Seconds (25.6-37.1) 10/07/17 16:35 - Constitutional Appears: Non-toxic, No Acute Distress - Head Exam Head Exam: ATRAUMATIC, NORMAL INSPECTION, NORMOCEPHALIC - Eye Exam Eye Exam: EOMI, Normal appearance - ENT Exam ENT Exam: Mucous Membranes Moist, Normal Exam - Neck Exam Neck Exam: Full ROM, Normal Inspection - Respiratory Exam Respiratory Exam: Chest Wall Tenderness (at Left chest tube insertion site), NORMAL BREATHING PATTERN. absent: Accessory Muscle Use, Wheezes, Respiratory Distress Additional comments: Left chest tube dressing - clean/dry/intact Crepitus over left chest wall - Cardiovascular Exam Cardiovascular Exam: REGULAR RHYTHM, +S1, +S2 - GI/Abdominal Exam GI & Abdominal Exam: Soft. absent: Distended, Firm, Guarding, Rigid, Tenderness - Extremities Exam Extremities Exam: Normal Inspection - Neurological Exam Neurological Exam: Alert, Awake, CN II-XII Intact, Oriented x3 - Psychiatric Exam Psychiatric exam: Normal Affect, Normal Mood - Skin Skin Exam: Dry, Intact, Normal Color, Warm Assessment and Plan - Assessment and Plan (Free Text) Assessment: 76M w/Left sided pneumothorax s/p CT insertion POD#2 Plan: CT with persistant air leak FU CT chest w/contrast today Monitor CT output Pain control PRN Further recs pending imaging results Will DW attending Radha, PGY-2
[2017-10-09] MEDS: Albuterol-Ipratrop 3 mg / 0.5 (3 ml) UD INH SCH ×4 (07:42→19:27)
--- NOTE | 2017-10-09 08:12 | RAD ---
Date of service: 10/09/2017 PROCEDURE: CHEST RADIOGRAPH, 1 VIEW HISTORY: left pneumothorax s/p chest tube insertion COMPARISON: Portable chest 10/08/2017. FINDINGS: LUNGS: Left chest tube unchanged in position with persistent left basilar and left apical pneumothorax remaining mild in overall volume. No improvement is identified. Consider potential trapped lung. COPD changes are reiterated including bilateral pulmonary fibrosis. PLEURA: No pneumothorax or pleural fluid seen. CARDIOVASCULAR: Normal. OSSEOUS STRUCTURES: No significant abnormalities. VISUALIZED UPPER ABDOMEN: Normal. OTHER FINDINGS: Emphysematous changes left chest wall stable. IMPRESSION: COPD changes again identified with left chest tube stable in position. No interval improvement in mild residual pneumothorax. Emphysematous changes left chest wall stable.
--- NOTE | 2017-10-09 08:19 | CP.PCM.CON ---
Past Patient History - Past Medical History & Family History Past Medical History?: Yes - Past Social History Smoking Status: Former Smoker - CARDIAC Hx Cardiac Disorders: Yes Hx Atrial Fibrillation: Yes Hx Cardia Arrhythmia: Yes Hx Hypercholesterolemia: Yes Hx Hypertension: Yes - PULMONARY Hx Chronic Obstructive Pulmonary Disease (COPD): Yes Hx Emphysema: Yes Hx Lung Cancer: Yes Hx Pneumonia: Yes - NEUROLOGICAL Hx Neurological Disorder: No - HEENT Hx HEENT Problems: No - RENAL Hx Chronic Kidney Disease: Yes - ENDOCRINE/METABOLIC Hx Endocrine Disorders: Yes Hx Diabetes Mellitus Type 2: Yes - HEMATOLOGICAL/ONCOLOGICAL Hx Blood Disorders: No Hx AIDS: No Hx Human Immunodeficiency Virus (HIV): No - INTEGUMENTARY Hx Dermatological Problems: No - MUSCULOSKELETAL/RHEUMATOLOGICAL Hx Musculoskeletal Disorders: No Hx Falls: No - GASTROINTESTINAL Hx Gastrointestinal Disorders: No - GENITOURINARY/GYNECOLOGICAL Hx Genitourinary Disorders: Yes - PSYCHIATRIC Hx Psychophysiologic Disorder: No Hx Substance Use: No - SURGICAL HISTORY Hx Surgeries: Yes Other/Comment: LUNG SX . BACK SX - ANESTHESIA Hx Anesthesia: Yes Hx Anesthesia Reactions: No Hx Malignant Hyperthermia: No Meds Allergies/Adverse Reactions: Allergies Allergy/AdvReac Type Severity Reaction Status Date / Time hydromorphone Allergy Mild RASH Verified 05/18/17 11:44 - Medications Medications: Current Medications Acetaminophen (Tylenol 325mg Tab) 650 mg PO Q6H PRN PRN Reason: Pain, Mild (1-3) Last Admin: 10/08/17 00:25 Dose: 650 mg Albuterol/Ipratropium (Duoneb 3 Mg/0.5 Mg (3 Ml) Ud) 3 ml INH RQID [facility] Last Admin: 10/09/17 07:42 Dose: 3 ml Atorvastatin Calcium (Lipitor) 40 mg PO DAILY@2100 [facility] Last Admin: 10/08/17 21:18 Dose: 40 mg Dextrose (Dextrose 50% Inj) 0 ml IV STAT PRN; Protocol PRN Reason: Hypoglycemia Protocol Dextrose (Glutose 15) 0 gm PO ONCE PRN; Protocol PRN Reason: Hypoglycemia Protocol Famotidine (Pepcid) 20 mg PO DAILY [facility] Last Admin: 10/08/17 14:08 Dose: 20 mg Finasteride (Proscar) 5 mg PO DAILY [facility] Last Admin: 10/08/17 14:09 Dose: 5 mg Gabapentin (Neurontin) 300 mg PO HS [facility] Last Admin: 10/08/17 21:19 Dose: 300 mg Glucagon (Glucagen Diagnostic Kit) 0 mg IM STAT PRN; Protocol PRN Reason: Hypoglycemia Protocol Hydrochlorothiazide (Microzide) 12.5 mg PO DAILY [facility] Last Admin: 10/08/17 14:04 Dose: Not Given Sodium Chloride (Sodium Chloride 0.9%) 1,000 mls @ 100 mls/hr IV .Q10H [facility] Stop: 10/09/17 12:00 Insulin Detemir (Levemir) 10 units SC HS [facility] Last Admin: 10/08/17 21:18 Dose: 10 units Ketorolac Tromethamine (Toradol) 15 mg IVP Q6H PRN PRN Reason: Pain, moderate (4-7) Last Admin: 10/09/17 06:58 Dose: 15 mg Levalbuterol HCl (Xopenex) 0.63 mg INH RQ4 PRN PRN Reason: Shortness of Breath Last Admin: 10/08/17 13:00 Dose: 0.63 mg Losartan Potassium (Cozaar) 50 mg PO DAILY [facility] Last Admin: 10/08/17 09:30 Dose: Not Given Repaglinide (Prandin) 2 mg PO TID [facility] Last Admin: 10/08/17 17:42 Dose: 2 mg Results - Vital Signs Recent Vital Signs: Last Vital Signs Temp 93.3 F L 10/09/17 07:55 Pulse 90 10/09/17 07:55 Resp 20 10/09/17 07:55 BP 144/90 10/09/17 07:55 Pulse Ox 97 10/09/17 07:55 - Labs Result Diagrams: 10/09/17 04:45 10/09/17 04:45 Labs: Laboratory Results - last 24 hr 10/08/17 10/09/17 10/09/17 08:45 04:45 04:45 WBC 18.8 H D RBC 4.13 L Hgb 12.9 Hct 38.2 MCV 92.6 MCH 31.2 H MCHC 33.7 RDW 13.9 Plt Count 265 MPV 7.4 Neut % (Auto) 86.7 H Lymph % (Auto) 5.9 L [place] % (Auto) 7.3 Eos % (Auto) 0.0 Baso % (Auto) 0.1 Neut # (Auto) 16.3 H Lymph # (Auto) 1.1 [place] # (Auto) 1.4 H Eos # (Auto) 0.0 Baso # (Auto) 0.0 Sodium 141 Potassium 5.0 Chloride 100 Carbon Dioxide 31 H Anion Gap 15 BUN 50 H Creatinine 1.2 Est GFR ( Amer) > 60 Est GFR (Non-Af Amer) 59 Random Glucose 120 H Calcium 9.5 Total Bilirubin 0.7 AST 98 H D ALT 44 Alkaline Phosphatase 54 Troponin I 0.7970 H* Total Protein 6.6 Albumin 3.8 Globulin 2.8 Albumin/Globulin Ratio 1.3 Assessment & Plan - Date & Time Date: 10/09/17 Time: :18
[2017-10-09] MEDS ORDERED: Sodium Chloride 0.9% 50 ML IV ONE (09:41)
[2017-10-09] MEDS ORDERED: Iohexol 300 100 ML IJ ONE (09:41)
--- NOTE | 2017-10-09 09:41 | CP.PCM.PN ---
Subjective - Date & Time of Evaluation Date of Evaluation: 10/09/17 Time of Evaluation: 07:00 - Subjective Subjective: Patient seen and examined at bedside, sitting in bed on high flow O2 supplementation via nasal cannula, saturating at 92%. Chest tube in place, vac measuring 93mL of serosanguineaous fluid this AM. Patient denies chest pain, weakness or dizziness. Reports a normal appetite and tolerating PO diet. Objective - Vital Signs/Intake and Output Vital Signs (last 24 hours): Temp Pulse Resp BP Pulse Ox 93.3 F L 99 H 20 164/82 H 97 10/09/17 07:55 10/09/17 08:33 10/09/17 07:55 10/09/17 08:33 10/09/17 07:55 Intake and Output: 10/09/17 10/09/17 06:59 18:59 Intake Total 80 80 Output Total 500 32 Balance -420 48 - Medications Medications: Current Medications Acetaminophen (Tylenol 325mg Tab) 650 mg PO Q6H PRN PRN Reason: Pain, Mild (1-3) Last Admin: 10/08/17 00:25 Dose: 650 mg Albuterol/Ipratropium (Duoneb 3 Mg/0.5 Mg (3 Ml) Ud) 3 ml INH RQID [facility] Last Admin: 10/09/17 07:42 Dose: 3 ml Atorvastatin Calcium (Lipitor) 40 mg PO DAILY@2100 [facility] Last Admin: 10/08/17 21:18 Dose: 40 mg Dextrose (Dextrose 50% Inj) 0 ml IV STAT PRN; Protocol PRN Reason: Hypoglycemia Protocol Dextrose (Glutose 15) 0 gm PO ONCE PRN; Protocol PRN Reason: Hypoglycemia Protocol Famotidine (Pepcid) 20 mg PO DAILY [facility] Last Admin: 10/09/17 08:38 Dose: 20 mg Finasteride (Proscar) 5 mg PO DAILY [facility] Last Admin: 10/08/17 14:09 Dose: 5 mg Gabapentin (Neurontin) 300 mg PO HS [facility] Last Admin: 10/08/17 21:19 Dose: 300 mg Glucagon (Glucagen Diagnostic Kit) 0 mg IM STAT PRN; Protocol PRN Reason: Hypoglycemia Protocol Hydrochlorothiazide (Microzide) 12.5 mg PO DAILY [facility] Last Admin: 10/08/17 14:04 Dose: Not Given Sodium Chloride (Sodium Chloride 0.9%) 1,000 mls @ 100 mls/hr IV .Q10H [facility] Stop: 10/09/17 12:00 Last Admin: 10/09/17 08:00 Dose: 100 mls/hr Insulin Detemir (Levemir) 10 units SC HS [facility] Last Admin: 10/08/17 21:18 Dose: 10 units Ketorolac Tromethamine (Toradol) 15 mg IVP Q6H PRN PRN Reason: Pain, moderate (4-7) Last Admin: 10/09/17 06:58 Dose: 15 mg Levalbuterol HCl (Xopenex) 0.63 mg INH RQ4 PRN PRN Reason: Shortness of Breath Last Admin: 10/08/17 13:00 Dose: 0.63 mg Losartan Potassium (Cozaar) 50 mg PO DAILY [facility] Last Admin: 10/09/17 08:33 Dose: 50 mg Repaglinide (Prandin) 2 mg PO TID [facility] Last Admin: 10/09/17 08:33 Dose: 2 mg - Labs Labs: 10/09/17 04:45 10/09/17 04:45 PT 13.3 Seconds (9.8-13.1) H 10/07/17 16:35 INR 1.2 10/07/17 16:35 APTT 34.1 Seconds (25.6-37.1) 10/07/17 16:35 - Constitutional Appears: No Acute Distress - Head Exam Head Exam: ATRAUMATIC, NORMOCEPHALIC - Eye Exam Eye Exam: EOMI - ENT Exam ENT Exam: Mucous Membranes Moist - Neck Exam Neck Exam: Full ROM - Respiratory Exam Respiratory Exam: Decreased Breath Sounds (significant, L>R) Additional comments: left upper chest wall: palpable subcutaneous crepitation; left chest tube in place, dressing c/d/i; chest vac at bedside with continuous suctioning and output of 93mL serosanguineous fluid - GI/Abdominal Exam GI & Abdominal Exam: Soft, Normal Bowel Sounds. absent: Tenderness - Extremities Exam Extremities Exam: Full ROM. absent: Pedal Edema - Neurological Exam Neurological Exam: Alert, Awake, CN II-XII Intact, Oriented x3 - Psychiatric Exam Psychiatric exam: Normal Affect, Normal Mood - Skin Skin Exam: Dry, Warm Assessment and Plan - Assessment and Plan (Free Text) Assessment: 76 yr old M admitted for left pneumothorax which developed s/p lung biopsy, now s/p POD # 2 s/p left chest tube placement with PMHx of HTN, COPD, DM2, atrial fibrillation. Left lung Pneumothorax -s/p POD #2 chest tube placement -s/p Left lung biopsy at [facility] on 10/04/17 -CT Chest: Left lung Pneumothorax, 40% lung collapsed -repeat CT chest with contrast this AM: left pneumothorax has not improved, official report pending -Pulmonology Consult appreciated: Dr. Hameed, will follow recommendations -Thoracic Surgery Consult, Dr. Justice: patient to go to OR today for chest tube replacement -Continue high flow O2 supplementation via nasal cannula, monitor respiratory status Atrial Fibrillation -Chronic, asymptomatic -Cardiology consult appreciated: Dr. Last -Coumadin held per Dr. Lats, latest INR 10/07/17 1.2 -was previously on digoxin, but this was d/c by Dr. Last in May due to detection of brief pauses EKG -no beta blockers as patient has limited respiratory reserve -Will start cardizem 30 mg PO Q6 if HR persists>100, hold for HR <60 and systolic BP <110 COPD -severe, chronic, Controlled -Pulmonology consult appreciated: Dr. Hameed -continue with Duonebs INH RQID ULISES, Xopenex INH RQ4 PRN -hold Spiriva 18 mcg INH QD, hold Advair Diskus 500/50 1 puff IH Q12: per pulmonology -hold Ventolin HFA 2 puff IH Q6 PRN -monitor respiratory status Respiratory Acidosis with elevated Lactate -resolved -Possibly due to Pneumothorax vs chronic conditions -On high flow O2 per pulm Elevated ProBNP and Troponin -serial troponins trending down -last echo in May showed EF 40-40%. However, per Dr. Last, patient has preserved left ventricular systolic function and elevated troponins are likely 2 /2 tachycardia induced myocyte injury -EKG findings likely 2/2 pneumothorax shifting mediastinum -plan to repeat echocardiogram at later date and once tachycardia has resolved Left Lung Nodule, S/p Lung Biopsy on 10/04/17 at [facility] -Results pending -will contact [facility] for results Diabetes Mellitus type 2 -chronic, controlled -Last HBA1C: 7.7 on 05/2017 -continue with home medications: Levemir 10 SC QHS, Repaglinide 2mg TID -Hypoglycemic treatment protocol in place -Renzo LAM -Diet: heart healthy, low carbohydrate Hypertension -chronic, uncontrolled -continue home medication: Losartan 50 mg PO QD -HCTZ held, Cardizem was administered yesterday and may need PRN today -monitor BP HLD -chronic, controlled -continue home medication: atorvastatin 40mg DVT Prophylaxis -SCDs for now, patient to go to OR today -will start Lovenox tomorrow -Discussed risks and benefits w/ transfer professor Full Code -Next of kin: , [place] [phone]
--- NOTE | 2017-10-09 10:17 | CP.PCM.PN ---
Subjective - Date & Time of Evaluation Date of Evaluation: 10/09/17 Time of Evaluation: 08:45 - Subjective Subjective: Much less dyspnoic Can converse (resp rate 18 BPM) A Fib at 90 BPM BP 140/70 mm Hg Air entry better on Lt side Labs show acute rise in BUN/Creatinin (Suspect due to long perid of tachycardia yesterday) There was no hypotension or hypovplemia (Fluid challenge is un-necessary) Will get a bedside echo Labs ordered for tomorrow. Objective - Vital Signs/Intake and Output Vital Signs (last 24 hours): Temp Pulse Resp BP Pulse Ox 93.3 F L 99 H 20 164/82 H 97 10/09/17 07:55 10/09/17 08:33 10/09/17 07:55 10/09/17 08:33 10/09/17 07:55 Intake and Output: 10/09/17 10/09/17 06:59 18:59 Intake Total 80 80 Output Total 500 32 Balance -420 48 - Medications Medications: Current Medications Acetaminophen (Tylenol 325mg Tab) 650 mg PO Q6H PRN PRN Reason: Pain, Mild (1-3) Last Admin: 10/08/17 00:25 Dose: 650 mg Albuterol/Ipratropium (Duoneb 3 Mg/0.5 Mg (3 Ml) Ud) 3 ml INH RQID [facility] Last Admin: 10/09/17 07:42 Dose: 3 ml Atorvastatin Calcium (Lipitor) 40 mg PO DAILY@2100 [facility] Last Admin: 10/08/17 21:18 Dose: 40 mg Dextrose (Dextrose 50% Inj) 0 ml IV STAT PRN; Protocol PRN Reason: Hypoglycemia Protocol Dextrose (Glutose 15) 0 gm PO ONCE PRN; Protocol PRN Reason: Hypoglycemia Protocol Famotidine (Pepcid) 20 mg PO DAILY [facility] Last Admin: 10/09/17 08:38 Dose: 20 mg Finasteride (Proscar) 5 mg PO DAILY [facility] Last Admin: 10/08/17 14:09 Dose: 5 mg Gabapentin (Neurontin) 300 mg PO HS [facility] Last Admin: 10/08/17 21:19 Dose: 300 mg Glucagon (Glucagen Diagnostic Kit) 0 mg IM STAT PRN; Protocol PRN Reason: Hypoglycemia Protocol Hydrochlorothiazide (Microzide) 12.5 mg PO DAILY [facility] Last Admin: 10/08/17 14:04 Dose: Not Given Sodium Chloride (Sodium Chloride 0.9%) 1,000 mls @ 40 mls/hr IV .Q24H [facility] Stop: 10/09/17 12:00 Insulin Detemir (Levemir) 10 units SC HS [facility] Last Admin: 10/08/17 21:18 Dose: 10 units Ketorolac Tromethamine (Toradol) 15 mg IVP Q6H PRN PRN Reason: Pain, moderate (4-7) Last Admin: 10/09/17 06:58 Dose: 15 mg Levalbuterol HCl (Xopenex) 0.63 mg INH RQ4 PRN PRN Reason: Shortness of Breath Last Admin: 10/08/17 13:00 Dose: 0.63 mg Losartan Potassium (Cozaar) 50 mg PO DAILY [facility] Last Admin: 10/09/17 08:33 Dose: 50 mg Repaglinide (Prandin) 2 mg PO TID [facility] Last Admin: 10/09/17 08:33 Dose: 2 mg - Labs Labs: 10/09/17 04:45 10/09/17 04:45 PT 13.3 Seconds (9.8-13.1) H 10/07/17 16:35 INR 1.2 10/07/17 16:35 APTT 34.1 Seconds (25.6-37.1) 10/07/17 16:35
--- NOTE | 2017-10-09 12:15 | CP.PCM.PN ---
Subjective - Date & Time of Evaluation Date of Evaluation: 10/09/17 Time of Evaluation: 12:05 - Subjective Subjective: Pt s/e. ct of chest this am: Left pneumothorax(Massive)+subcutaneous emphyema. chest tube in the lung parenchyma. will remove the tube in the OR and place anterior and posterior tube under fluoroscopic guidance, d/w pt and his is notified also by Drs. Faith and Radha. Objective - Vital Signs/Intake and Output Vital Signs (last 24 hours): Temp Pulse Resp BP Pulse Ox 93.3 F L 93 H 16 147/78 99 10/09/17 07:55 10/09/17 10:00 10/09/17 11:19 10/09/17 10:00 10/09/17 10:00 Intake and Output: 10/09/17 10/09/17 06:59 18:59 Intake Total 80 450 Output Total 500 152 Balance -420 298 - Medications Medications: Current Medications Acetaminophen (Tylenol 325mg Tab) 650 mg PO Q6H PRN PRN Reason: Pain, Mild (1-3) Last Admin: 10/08/17 00:25 Dose: 650 mg Albuterol/Ipratropium (Duoneb 3 Mg/0.5 Mg (3 Ml) Ud) 3 ml INH RQID [facility] Last Admin: 10/09/17 11:17 Dose: 3 ml Atorvastatin Calcium (Lipitor) 40 mg PO DAILY@2100 [facility] Last Admin: 10/08/17 21:18 Dose: 40 mg Dextrose (Dextrose 50% Inj) 0 ml IV STAT PRN; Protocol PRN Reason: Hypoglycemia Protocol Dextrose (Glutose 15) 0 gm PO ONCE PRN; Protocol PRN Reason: Hypoglycemia Protocol Famotidine (Pepcid) 20 mg PO DAILY [facility] Last Admin: 10/09/17 08:38 Dose: 20 mg Finasteride (Proscar) 5 mg PO DAILY [facility] Last Admin: 10/09/17 12:00 Dose: Not Given Gabapentin (Neurontin) 300 mg PO HS [facility] Last Admin: 10/08/17 21:19 Dose: 300 mg Glucagon (Glucagen Diagnostic Kit) 0 mg IM STAT PRN; Protocol PRN Reason: Hypoglycemia Protocol Hydrochlorothiazide (Microzide) 12.5 mg PO DAILY [facility] Last Admin: 10/08/17 14:04 Dose: Not Given Insulin Detemir (Levemir) 10 units SC HS [facility] Last Admin: 10/08/17 21:18 Dose: 10 units Ketorolac Tromethamine (Toradol) 15 mg IVP Q6H PRN PRN Reason: Pain, moderate (4-7) Last Admin: 10/09/17 06:58 Dose: 15 mg Levalbuterol HCl (Xopenex) 0.63 mg INH RQ4 PRN PRN Reason: Shortness of Breath Last Admin: 10/08/17 13:00 Dose: 0.63 mg Losartan Potassium (Cozaar) 50 mg PO DAILY [facility] Last Admin: 10/09/17 08:33 Dose: 50 mg Repaglinide (Prandin) 2 mg PO TID [facility] Last Admin: 10/09/17 08:33 Dose: 2 mg - Labs Labs: 10/09/17 04:45 10/09/17 04:45 PT 13.3 Seconds (9.8-13.1) H 10/07/17 16:35 INR 1.2 10/07/17 16:35 APTT 34.1 Seconds (25.6-37.1) 10/07/17 16:35
[2017-10-09] MEDS ORDERED: Lidocaine 4% (Laryng-O-Jet) Kit MM ONE (12:27)
[2017-10-09] MEDS ORDERED: Succinylcholine 200 mg/10 ml Inj IV ONE (12:27)
[2017-10-09] MEDS ORDERED: Etomidate 20 mg/10ml Inj IV ONE (12:28)
[2017-10-09] MEDS ORDERED: Sodium Chloride 0.9% 1,000 ML IV ONE (12:49)
--- NOTE | 2017-10-09 13:08 | CT ---
Date of service: 10/09/2017 PROCEDURE: CT Chest with contrast HISTORY: s/p chest tube insertion with persistant airleak COMPARISON: None available. TECHNIQUE: Contiguous axial images were obtained through the chest with intravenous contrast enhancement. Sagittal and coronal reconstructions were performed. IV contrast: Omnipaque 300, 95.0 cc Radiation dose (DLP): 344.80 mGy-cm. This CT exam was performed using one or more of the following dose reduction techniques: Automated exposure control, adjustment of the mA and/or kV according to patient size, and/or use of iterative reconstruction technique. FINDINGS: LUNGS: Left-sided chest tube is identified placed entry into the left upper lobe and terminating at the medial left upper lobe. Only a short segment of the chest tube bridges the pneumothorax laden lateral left pleural space with a large pneumothorax is seen affecting the left hemithorax predominate the base but also the mid upper lung zones, more so than would be aches expected based on chest radiograph performed 10/09/2017. Atelectatic subsegments of lungs are identified primarily at the upper and lower lung zones sparing the mid lung zone. Otherwise, COPD changes are reiterated with dependent atelectasis identified in the right lower lobe. Emphysematous soft tissue changes seen the left chest wall with the left chest tube placement extending up to the axilla and subclavian space somewhat. The right chest wall and axilla appear unremarkable. Stable normal cardiac size. No pulmonary vascular congestion. No significant lymphadenopathy. Thoracic inlet appears unremarkable. The thoracic aorta appears normal caliber throughout. Main pulmonary artery is normal caliber. BONES: No fracture. No destructive lesion. UPPER ABDOMEN: Grossly unremarkable. OTHER FINDINGS: None. IMPRESSION: Large left pneumothorax is identified with left chest tube primarily located in the left upper lobe with minimal portion at the entry site in the left lateral pleural space as discussed above. Limited dependent atelectasis right lower lobe and pneumothorax related apical and basilar left lung atelectasis. Please see discussion above. Findings discussed with Dr. Jordan, 10/09/2017 11:10 a.m. with written down read back verification.
[2017-10-09] MEDS ORDERED: Desflurane Inhalation Anesthetic Liq (240 ml) ONE (13:48)
[2017-10-09] MEDS ORDERED: Bacitracin Ointment 30 GM TUBE ONE (14:05)
[2017-10-09] MEDS ORDERED: Bacitracin Opht OINT 3.5GM OU ONE (14:12)
--- NOTE | 2017-10-09 14:52 | PCM.SURG1 ---
Surgeon's Initial Post Op Note - Surgeon's Notes Surgeon: Dr. Justice Lockstitch Waistband Setter: Bree Garcia, PGY-2 Type of Anesthesia: General Endo Anesthesia Administered By: Dr. Ryan Conroy Pre-Operative Diagnosis: Persistent Left pneumothorax Operative Findings: See op report Post-Operative Diagnosis: Left pneumothorax Operation Performed: Insertion of left anterior and left posterior chest tube with evacuation of small hemothorax Specimen/Specimens Removed: tip of removed chest tube Estimated Blood Loss: EBL {In ML}: 20 Blood Products Given: N/A Drains Used: Chest Tubes (x 2) Post-Op Condition: Good Date of Surgery/Procedure: 10/09/17 Time of Surgery/Procedure: 14:52
[2017-10-09] MEDS ORDERED: oxyCODONE 5 mg Immediate Release Tab PO PRN (14:58)
--- NOTE | 2017-10-09 15:01 | CP.PCM.CON ---
History of Present Illness - History of Present Illness History of Present Illness: Infectious Disease Consultation Note- asked to see this patient at the request of family practice team for leukocytosis. HPI- History obtained from the medical chart, funeral arranger, ICU nurse and the patient and his who is at his bedside in ICU. Nimisha is a 76 year old male with PMH of A.fib, DM II, COPD, past smoker who is s /p lung nodule biopsy at [facility] in [facility] on 10/04/2017 who presented to [facility] ED with sob and was found to have pneumothorax and had chest tube placed here 2 days ago and developed subcutaneous emphysema -repeat CT chest with contrast this AM: left pneumothorax has not improved, and hence went to OR and had first chest tube removed hence is s/p 2 chest tubes today one anterior and one posterior and is c/o pain around the site of the chest tubes and anterior chest where he has sm,all subcutaneous emphysema. I'm asked to see the patient for his leukocytosis nad rule pout infectious process. Pt. denies any fever or chills, he denies any cough other than his baseline cough that he has had, denies any diarrhea, denies any nausea or vomiting, denies any dysurea. PMH: Atrial Fibrillation, COPD, Emphysema, HTN, HLD; Pneumonia, CKD; Lung nodule; PSH: Lung Biopsy; Back surgery SH: Former Smoker; No illegal drug use; Occasional Alcohol; Live with family FH: Grandfather with DC Grandmother with DM II Allergies: Hydromorphone Review of Systems - Review of Systems Review of Systems: ROS- denies any fever or chills, denies any NEWELL, + cough but not new and no phlegm, had + sob post lung biopsty, denies any chest pain but has pain around the chest tube sites as he just had them placed, denies any nausea or vomiting, denies any abd. pain, denies any diarrhea, denies any dysurea Past Patient History - Past Medical History & Family History Past Medical History?: Yes - Past Social History Smoking Status: Former Smoker Alcohol: Occasional Drugs: Denies Home Situation {Lives}: With Family - CARDIAC Hx Atrial Fibrillation: Yes Hx Hypercholesterolemia: Yes Hx Hypertension: Yes - PULMONARY Hx Chronic Obstructive Pulmonary Disease (COPD): Yes Hx Emphysema: Yes Hx Pneumonia: Yes - NEUROLOGICAL Hx Neurological Disorder: No - HEENT Hx HEENT Problems: No - RENAL Hx Chronic Kidney Disease: Yes - ENDOCRINE/METABOLIC Hx Endocrine Disorders: Yes Hx Diabetes Mellitus Type 2: Yes - HEMATOLOGICAL/ONCOLOGICAL Hx Blood Disorders: No - INTEGUMENTARY Hx Dermatological Problems: No - MUSCULOSKELETAL/RHEUMATOLOGICAL Hx Musculoskeletal Disorders: No Hx Falls: No - GASTROINTESTINAL Hx Gastrointestinal Disorders: No - GENITOURINARY/GYNECOLOGICAL Hx Genitourinary Disorders: Yes - PSYCHIATRIC Hx Psychophysiologic Disorder: No Hx Substance Use: No - SURGICAL HISTORY Hx Surgeries: Yes Other/Comment: LUNG SX . BACK SX - ANESTHESIA Hx Anesthesia: Yes Hx Anesthesia Reactions: No Hx Malignant Hyperthermia: No Meds Allergies/Adverse Reactions: Allergies Allergy/AdvReac Type Severity Reaction Status Date / Time hydromorphone Allergy Mild RASH Verified 05/18/17 11:44 - Medications Medications: Current Medications Acetaminophen (Tylenol 325mg Tab) 650 mg PO Q6H PRN PRN Reason: Pain, Mild (1-3) Last Admin: 10/08/17 00:25 Dose: 650 mg Albuterol/Ipratropium (Duoneb 3 Mg/0.5 Mg (3 Ml) Ud) 3 ml INH RQID [facility] Last Admin: 10/09/17 11:17 Dose: 3 ml Atorvastatin Calcium (Lipitor) 40 mg PO DAILY@2100 [facility] Last Admin: 10/08/17 21:18 Dose: 40 mg Dextrose (Dextrose 50% Inj) 0 ml IV STAT PRN; Protocol PRN Reason: Hypoglycemia Protocol Dextrose (Glutose 15) 0 gm PO ONCE PRN; Protocol PRN Reason: Hypoglycemia Protocol Famotidine (Pepcid) 20 mg PO DAILY [facility] Last Admin: 10/09/17 08:38 Dose: 20 mg Finasteride (Proscar) 5 mg PO DAILY [facility] Last Admin: 10/09/17 12:00 Dose: Not Given Gabapentin (Neurontin) 300 mg PO HS [facility] Last Admin: 10/08/17 21:19 Dose: 300 mg Glucagon (Glucagen Diagnostic Kit) 0 mg IM STAT PRN; Protocol PRN Reason: Hypoglycemia Protocol Hydrochlorothiazide (Microzide) 12.5 mg PO DAILY [facility] Last Admin: 10/08/17 14:04 Dose: Not Given Insulin Detemir (Levemir) 10 units SC HS [facility] Last Admin: 10/08/17 21:18 Dose: 10 units Ketorolac Tromethamine (Toradol) 15 mg IVP Q6H PRN PRN Reason: Pain, moderate (4-7) Last Admin: 10/09/17 06:58 Dose: 15 mg Levalbuterol HCl (Xopenex) 0.63 mg INH RQ4 PRN PRN Reason: Shortness of Breath Last Admin: 10/08/17 13:00 Dose: 0.63 mg Losartan Potassium (Cozaar) 50 mg PO DAILY [facility] Last Admin: 10/09/17 08:33 Dose: 50 mg Oxycodone HCl (Oxycodone Immediate Release Tab) 5 mg PO Q6 PRN PRN Reason: Pain, severe (8-10) Repaglinide (Prandin) 2 mg PO TID [facility] Last Admin: 10/09/17 08:33 Dose: 2 mg Physical Exam - Constitutional Appears: Chronically Ill - Head Exam Head Exam: ATRAUMATIC - Eye Exam Eye Exam: EOMI, PERRL - ENT Exam ENT Exam: Normal Oropharynx - Neck Exam Neck exam: Positive for: Full Rom - Respiratory Exam Additional comments: decreased breath sounds in left base no wheezing has 2 chest tubes in left chest , one anterior and one posterior draining serosanguinous fluid Minimal left upper chest subcutaneous crepitus - Cardiovascular Exam Cardiovascular Exam: Tachycardia, +S1, +S2 - GI/Abdominal Exam GI & Abdominal Exam: Normal Bowel Sounds, Soft Additional comments: NT, ND - Extremities Exam Extremities exam: Positive for: normal inspection Additional comments: no edema B/L LE - Neurological Exam Neurological exam: Alert, Oriented x3 Results - Vital Signs Recent Vital Signs: Last Vital Signs Temp 98.3 F 10/09/17 12:00 Pulse 129 H 10/09/17 14:08 Resp 11 L 10/09/17 12:00 BP 123/71 10/09/17 12:00 Pulse Ox 91 L 10/09/17 14:08 - Labs Result Diagrams: 10/09/17 04:45 10/09/17 04:45 Labs: Laboratory Results - last 24 hr 10/07/17 10/07/17 10/07/17 16:35 20:06 23:03 WBC RBC Hgb Hct MCV MCH MCHC RDW Plt Count MPV Neut % (Auto) Lymph % (Auto) [place] % (Auto) Eos % (Auto) Baso % (Auto) Neut # (Auto) Lymph # (Auto) [place] # (Auto) Eos # (Auto) Baso # (Auto) Sodium Potassium Chloride Carbon Dioxide Anion Gap BUN Creatinine Est GFR ( Amer) Est GFR (Non-Af Amer) POC Glucose (mg/dL) 208 H 194 H Random Glucose Calcium Total Bilirubin AST ALT Alkaline Phosphatase Total Protein Albumin Globulin Albumin/Globulin Ratio Blood Type A POSITIVE Antibody Screen Negative Crossmatch See Detail BBK History Checked Patient has bt 10/08/17 10/08/17 10/08/17 07:58 11:44 15:53 WBC RBC Hgb Hct MCV MCH MCHC RDW Plt Count MPV Neut % (Auto) Lymph % (Auto) [place] % (Auto) Eos % (Auto) Baso % (Auto) Neut # (Auto) Lymph # (Auto) [place] # (Auto) Eos # (Auto) Baso # (Auto) Sodium Potassium Chloride Carbon Dioxide Anion Gap BUN Creatinine Est GFR ( Amer) Est GFR (Non-Af Amer) POC Glucose (mg/dL) 167 H 229 H 180 H Random Glucose Calcium Total Bilirubin AST ALT Alkaline Phosphatase Total Protein Albumin Globulin Albumin/Globulin Ratio Blood Type Antibody Screen Crossmatch BBK History Checked 10/08/17 10/09/17 10/09/17 21:09 04:45 04:45 WBC 18.8 H D RBC 4.13 L Hgb 12.9 Hct 38.2 MCV 92.6 MCH 31.2 H MCHC 33.7 RDW 13.9 Plt Count 265 MPV 7.4 Neut % (Auto) 86.7 H Lymph % (Auto) 5.9 L [place] % (Auto) 7.3 Eos % (Auto) 0.0 Baso % (Auto) 0.1 Neut # (Auto) 16.3 H Lymph # (Auto) 1.1 [place] # (Auto) 1.4 H Eos # (Auto) 0.0 Baso # (Auto) 0.0 Sodium 141 Potassium 5.0 Chloride 100 Carbon Dioxide 31 H Anion Gap 15 BUN 50 H Creatinine 1.2 Est GFR ( Amer) > 60 Est GFR (Non-Af Amer) 59 POC Glucose (mg/dL) 214 H Random Glucose 120 H Calcium 9.5 Total Bilirubin 0.7 AST 98 H D ALT 44 Alkaline Phosphatase 54 Total Protein 6.6 Albumin 3.8 Globulin 2.8 Albumin/Globulin Ratio 1.3 Blood Type Antibody Screen Crossmatch BBK History Checked 10/09/17 10/09/17 05:48 11:45 WBC RBC Hgb Hct MCV MCH MCHC RDW Plt Count MPV Neut % (Auto) Lymph % (Auto) [place] % (Auto) Eos % (Auto) Baso % (Auto) Neut # (Auto) Lymph # (Auto) [place] # (Auto) Eos # (Auto) Baso # (Auto) Sodium Potassium Chloride Carbon Dioxide Anion Gap BUN Creatinine Est GFR ( Amer) Est GFR (Non-Af Amer) POC Glucose (mg/dL) 121 H 93 Random Glucose Calcium Total Bilirubin AST ALT Alkaline Phosphatase Total Protein Albumin Globulin Albumin/Globulin Ratio Blood Type Antibody Screen Crossmatch BBK History Checked Laboratory Results - last 72 hr 10/07/17 10/07/17 10/07/17 16:24 16:32 16:35 WBC 13.6 H D RBC 4.71 Hgb 14.9 Hct 43.7 MCV 92.9 MCH 31.7 H MCHC 34.1 RDW 14.1 Plt Count 362 MPV 7.4 Neut % (Auto) 68.8 Lymph % (Auto) 21.8 [place] % (Auto) 8.2 Eos % (Auto) 0.8 Baso % (Auto) 0.4 Neut # (Auto) 9.3 H Lymph # (Auto) 3.0 [place] # (Auto) 1.1 H Eos # (Auto) 0.1 Baso # (Auto) 0.0 Neutrophils % (Manual) Lymphocytes % (Manual) Monocytes % (Manual) Platelet Estimate PT INR APTT pCO2 73 H* pO2 111 H HCO3 23.8 ABG pH 7.20 L ABG Total CO2 30.7 H ABG O2 Saturation 100.5 H ABG O2 Content ABG Base Excess -1.4 ABG Hemoglobin ABG Carboxyhemoglobin POC ABG HHb (Measured) ABG Methemoglobin ABG O2 Capacity Scout Test Yes ABG Potassium 4.4 A-a O2 Difference 54.0 Hgb O2 Saturation Sodium 134.0 Chloride 98.0 Glucose 217 H Lactate 2.6 H Vent Mode FiO2 36.0 Crit Value Called To margot Ott md Crit Value Called By Briana malloy Crit Value Read Back Y Blood Gas Notified Time 1641 Potassium Carbon Dioxide Anion Gap BUN Creatinine Est GFR ( Amer) Est GFR (Non-Af Amer) POC Glucose (mg/dL) 188 H Random Glucose Calcium Phosphorus Magnesium Total Bilirubin AST ALT Alkaline Phosphatase Troponin I NT-Pro-B Natriuret Pep Total Protein Albumin Globulin Albumin/Globulin Ratio Arterial Blood Potassium 4.4 Blood Type Antibody Screen Crossmatch BBK History Checked 10/07/17 10/07/17 10/07/17 16:35 16:35 16:35 WBC RBC Hgb Hct MCV MCH MCHC RDW Plt Count MPV Neut % (Auto) Lymph % (Auto) [place] % (Auto) Eos % (Auto) Baso % (Auto) Neut # (Auto) Lymph # (Auto) [place] # (Auto) Eos # (Auto) Baso # (Auto) Neutrophils % (Manual) Lymphocytes % (Manual) Monocytes % (Manual) Platelet Estimate PT 13.3 H INR 1.2 APTT 34.1 pCO2 pO2 HCO3 ABG pH ABG Total CO2 ABG O2 Saturation ABG O2 Content ABG Base Excess ABG Hemoglobin ABG Carboxyhemoglobin POC ABG HHb (Measured) ABG Methemoglobin ABG O2 Capacity Scout Test ABG Potassium A-a O2 Difference Hgb O2 Saturation Sodium 138 Chloride 99 Glucose Lactate Vent Mode FiO2 Crit Value Called To Crit Value Called By Crit Value Read Back Blood Gas Notified Time Potassium 4.9 Carbon Dioxide 25 Anion Gap 19 BUN 21 H Creatinine 1.0 Est GFR ( Amer) > 60 Est GFR (Non-Af Amer) > 60 POC Glucose (mg/dL) Random Glucose 203 H Calcium 10.0 Phosphorus 5.7 H Magnesium 1.7 Total Bilirubin 1.2 AST 64 H ALT 42 Alkaline Phosphatase 84 Troponin I 1.1400 H* NT-Pro-B Natriuret Pep 4320 H Total Protein 7.9 Albumin 4.7 Globulin 3.3 Albumin/Globulin Ratio 1.4 Arterial Blood Potassium Blood Type A POSITIVE Antibody Screen Negative Crossmatch See Detail BBK History Checked Patient has bt 10/07/17 10/07/17 10/07/17 20:06 22:37 23:03 WBC RBC Hgb Hct MCV MCH MCHC RDW Plt Count MPV Neut % (Auto) Lymph % (Auto) [place] % (Auto) Eos % (Auto) Baso % (Auto) Neut # (Auto) Lymph # (Auto) [place] # (Auto) Eos # (Auto) Baso # (Auto) Neutrophils % (Manual) Lymphocytes % (Manual) Monocytes % (Manual) Platelet Estimate PT INR APTT pCO2 44 pO2 86 HCO3 23.7 ABG pH 7.35 ABG Total CO2 25.7 ABG O2 Saturation 99.9 H ABG O2 Content 19.7 ABG Base Excess -1.5 ABG Hemoglobin 14.8 ABG Carboxyhemoglobin 3.1 H POC ABG HHb (Measured) 0.1 ABG Methemoglobin 2.5 ABG O2 Capacity 19.7 Scout Test Yes ABG Potassium A-a O2 Difference 59.0 Hgb O2 Saturation 94.3 L Sodium Chloride Glucose Lactate Vent Mode 2lnc FiO2 28.0 Crit Value Called To Crit Value Called By Crit Value Read Back Blood Gas Notified Time Potassium Carbon Dioxide Anion Gap BUN Creatinine Est GFR ( Amer) Est GFR (Non-Af Amer) POC Glucose (mg/dL) 208 H 194 H Random Glucose Calcium Phosphorus Magnesium Total Bilirubin AST ALT Alkaline Phosphatase Troponin I NT-Pro-B Natriuret Pep Total Protein Albumin Globulin Albumin/Globulin Ratio Arterial Blood Potassium Blood Type Antibody Screen Crossmatch BBK History Checked 10/08/17 10/08/17 10/08/17 04:25 04:25 07:58 WBC 7.3 RBC 3.75 L Hgb 12.2 D Hct 34.3 L MCV 91.3 MCH 32.6 H MCHC 35.7 RDW 13.7 Plt Count 226 D MPV 7.0 L Neut % (Auto) 91.7 H Lymph % (Auto) 6.9 L [place] % (Auto) 1.4 Eos % (Auto) 0.0 Baso % (Auto) 0.0 Neut # (Auto) 6.7 Lymph # (Auto) 0.5 L [place] # (Auto) 0.1 Eos # (Auto) 0.0 Baso # (Auto) 0.0 Neutrophils % (Manual) 91 H Lymphocytes % (Manual) 8 L Monocytes % (Manual) 1 Platelet Estimate Normal PT INR APTT pCO2 pO2 HCO3 ABG pH ABG Total CO2 ABG O2 Saturation ABG O2 Content ABG Base Excess ABG Hemoglobin ABG Carboxyhemoglobin POC ABG HHb (Measured) ABG Methemoglobin ABG O2 Capacity Scout Test ABG Potassium A-a O2 Difference Hgb O2 Saturation Sodium 139 Chloride 106 Glucose Lactate Vent Mode FiO2 Crit Value Called To Crit Value Called By Crit Value Read Back Blood Gas Notified Time Potassium 4.2 Carbon Dioxide 25 Anion Gap 12 BUN 26 H Creatinine 0.9 Est GFR ( Amer) > 60 Est GFR (Non-Af Amer) > 60 POC Glucose (mg/dL) 167 H Random Glucose 151 H Calcium 8.0 L Phosphorus Magnesium Total Bilirubin 0.7 AST 48 ALT 41 Alkaline Phosphatase 55 Troponin I 0.8600 H* NT-Pro-B Natriuret Pep Total Protein 5.9 L Albumin 3.2 L D Globulin 2.6 Albumin/Globulin Ratio 1.2 Arterial Blood Potassium Blood Type Antibody Screen Crossmatch BBK History Checked 10/08/17 10/08/17 10/08/17 08:45 11:44 15:53 WBC RBC Hgb Hct MCV MCH MCHC RDW Plt Count MPV Neut % (Auto) Lymph % (Auto) [place] % (Auto) Eos % (Auto) Baso % (Auto) Neut # (Auto) Lymph # (Auto) [place] # (Auto) Eos # (Auto) Baso # (Auto) Neutrophils % (Manual) Lymphocytes % (Manual) Monocytes % (Manual) Platelet Estimate PT INR APTT pCO2 pO2 HCO3 ABG pH ABG Total CO2 ABG O2 Saturation ABG O2 Content ABG Base Excess ABG Hemoglobin ABG Carboxyhemoglobin POC ABG HHb (Measured) ABG Methemoglobin ABG O2 Capacity Scout Test ABG Potassium A-a O2 Difference Hgb O2 Saturation Sodium Chloride Glucose Lactate Vent Mode FiO2 Crit Value Called To Crit Value Called By Crit Value Read Back Blood Gas Notified Time Potassium Carbon Dioxide Anion Gap BUN Creatinine Est GFR ( Amer) Est GFR (Non-Af Amer) POC Glucose (mg/dL) 229 H 180 H Random Glucose Calcium Phosphorus Magnesium Total Bilirubin AST ALT Alkaline Phosphatase Troponin I 0.7970 H* NT-Pro-B Natriuret Pep Total Protein Albumin Globulin Albumin/Globulin Ratio Arterial Blood Potassium Blood Type Antibody Screen Crossmatch BBK History Checked 10/08/17 10/09/17 10/09/17 21:09 04:45 04:45 WBC 18.8 H D RBC 4.13 L Hgb 12.9 Hct 38.2 MCV 92.6 MCH 31.2 H MCHC 33.7 RDW 13.9 Plt Count 265 MPV 7.4 Neut % (Auto) 86.7 H Lymph % (Auto) 5.9 L [place] % (Auto) 7.3 Eos % (Auto) 0.0 Baso % (Auto) 0.1 Neut # (Auto) 16.3 H Lymph # (Auto) 1.1 [place] # (Auto) 1.4 H Eos # (Auto) 0.0 Baso # (Auto) 0.0 Neutrophils % (Manual) Lymphocytes % (Manual) Monocytes % (Manual) Platelet Estimate PT INR APTT pCO2 pO2 HCO3 ABG pH ABG Total CO2 ABG O2 Saturation ABG O2 Content ABG Base Excess ABG Hemoglobin ABG Carboxyhemoglobin POC ABG HHb (Measured) ABG Methemoglobin ABG O2 Capacity Scout Test ABG Potassium A-a O2 Difference Hgb O2 Saturation Sodium 141 Chloride 100 Glucose Lactate Vent Mode FiO2 Crit Value Called To Crit Value Called By Crit Value Read Back Blood Gas Notified Time Potassium 5.0 Carbon Dioxide 31 H Anion Gap 15 BUN 50 H Creatinine 1.2 Est GFR ( Amer) > 60 Est GFR (Non-Af Amer) 59 POC Glucose (mg/dL) 214 H Random Glucose 120 H Calcium 9.5 Phosphorus Magnesium Total Bilirubin 0.7 AST 98 H D ALT 44 Alkaline Phosphatase 54 Troponin I NT-Pro-B Natriuret Pep Total Protein 6.6 Albumin 3.8 Globulin 2.8 Albumin/Globulin Ratio 1.3 Arterial Blood Potassium Blood Type Antibody Screen Crossmatch BBK History Checked 10/09/17 10/09/17 05:48 11:45 WBC RBC Hgb Hct MCV MCH MCHC RDW Plt Count MPV Neut % (Auto) Lymph % (Auto) [place] % (Auto) Eos % (Auto) Baso % (Auto) Neut # (Auto) Lymph # (Auto) [place] # (Auto) Eos # (Auto) Baso # (Auto) Neutrophils % (Manual) Lymphocytes % (Manual) Monocytes % (Manual) Platelet Estimate PT INR APTT pCO2 pO2 HCO3 ABG pH ABG Total CO2 ABG O2 Saturation ABG O2 Content ABG Base Excess ABG Hemoglobin ABG Carboxyhemoglobin POC ABG HHb (Measured) ABG Methemoglobin ABG O2 Capacity Scout Test ABG Potassium A-a O2 Difference Hgb O2 Saturation Sodium Chloride Glucose Lactate Vent Mode FiO2 Crit Value Called To Crit Value Called By Crit Value Read Back Blood Gas Notified Time Potassium Carbon Dioxide Anion Gap BUN Creatinine Est GFR ( Amer) Est GFR (Non-Af Amer) POC Glucose (mg/dL) 121 H 93 Random Glucose Calcium Phosphorus Magnesium Total Bilirubin AST ALT Alkaline Phosphatase Troponin I NT-Pro-B Natriuret Pep Total Protein Albumin Globulin Albumin/Globulin Ratio Arterial Blood Potassium Blood Type Antibody Screen Crossmatch BBK History Checked Microbiology 10/07/17 16:35 Blood-Venous Blood Culture - Preliminary NO GROWTH AFTER 24 HOURS 10/07/17 16:35 Blood-Venous Blood Culture - Preliminary NO GROWTH AFTER 24 HOURS Accession No. : [id number] Patient Name / ID : FATUMA Jenkins / [id number] Exam Date : 10/09/2017 09:42:05 ( Approved ) Study Comment : Sex / Age : M / 76Y Creator : Delfin Billings MD Dictator : Delfin Billings MD Doll Wig Maker : Financial Accounting Analyst : Delfin Billings MD Approver2 : Report Date : 10/09/2017 13:06:31 My Comment : Date of service: 10/09/2017 PROCEDURE: CT Chest with contrast HISTORY: s/p chest tube insertion with persistant airleak COMPARISON: None available. TECHNIQUE: Contiguous axial images were obtained through the chest with intravenous contrast enhancement. Sagittal and coronal reconstructions were performed. IV contrast: Omnipaque 300, 95.0 cc Radiation dose (DLP): 344.80 mGy-cm. This CT exam was performed using one or more of the following dose reduction techniques: Automated exposure control, adjustment of the mA and/or kV according to patient size, and/or use of iterative reconstruction technique. FINDINGS: LUNGS: Left-sided chest tube is identified placed entry into the left upper lobe and terminating at the medial left upper lobe. Only a short segment of the chest tube bridges the pneumothorax laden lateral left pleural space with a large pneumothorax is seen affecting the left hemithorax predominate the base but also the mid upper lung zones, more so than would be aches expected based on chest radiograph performed 10/09/2017. Atelectatic subsegments of lungs are identified primarily at the upper and lower lung zones sparing the mid lung zone. Otherwise, COPD changes are reiterated with dependent atelectasis identified in the right lower lobe. Emphysematous soft tissue changes seen the left chest wall with the left chest tube placement extending up to the axilla and subclavian space somewhat. The right chest wall and axilla appear unremarkable. Stable normal cardiac size. No pulmonary vascular congestion. No significant lymphadenopathy. Thoracic inlet appears unremarkable. The thoracic aorta appears normal caliber throughout. Main pulmonary artery is normal caliber. BONES: No fracture. No destructive lesion. UPPER ABDOMEN: Grossly unremarkable. OTHER FINDINGS: None. IMPRESSION: Large left pneumothorax is identified with left chest tube primarily located in the left upper lobe with minimal portion at the entry site in the left lateral pleural space as discussed above. Limited dependent atelectasis right lower lobe and pneumothorax related apical and basilar left lung atelectasis. Please see discussion above. Findings discussed with Dr. Jordan, 10/09/2017 11:10 a.m. with written down read back verification. Accession No. : [id number] Patient Name / ID : FATUMA Jenkins / [id number] Exam Date : 10/09/2017 04:47:32 ( Approved ) Study Comment : Sex / Age : M / 76Y Creator : Delfin Billings MD Dictator : Delfin Billings MD Doll Wig Maker : Financial Accounting Analyst : Delfin Billings MD Approver2 : Report Date : 10/09/2017 08:05:28 My Comment : Date of service: 10/09/2017 PROCEDURE: CHEST RADIOGRAPH, 1 VIEW HISTORY: left pneumothorax s/p chest tube insertion COMPARISON: Portable chest 10/08/2017. FINDINGS: LUNGS: Left chest tube unchanged in position with persistent left basilar and left apical pneumothorax remaining mild in overall volume. No improvement is identified. Consider potential trapped lung. COPD changes are reiterated including bilateral pulmonary fibrosis. PLEURA: No pneumothorax or pleural fluid seen. CARDIOVASCULAR: Normal. OSSEOUS STRUCTURES: No significant abnormalities. VISUALIZED UPPER ABDOMEN: Normal. OTHER FINDINGS: Emphysematous changes left chest wall stable. IMPRESSION: COPD changes again identified with left chest tube stable in position. No interval improvement in mild residual pneumothorax. Emphysematous changes left chest wall stable. Assessment & Plan (1) Pneumothorax Status: Acute (2) COPD exacerbation Status: Acute (3) Pulmonary nodules/lesions, multiple Status: Chronic Priority: High (4) Leukocytosis Status: Resolved Priority: High (5) Pulmonary emphysema Status: Chronic Priority: High - Assessment and Plan (Free Text) Assessment: A/P- 76 year old male with multiple medical conditions including COPD, A.Fib, DM II s /p lung biopsy later developed pneumothorax s/p timothy tuube 2 days ago , ont not improved and had developed left sided chest subcutaneous emphysema s/p 2 chest tubes today. afebrile leukocytosis present would advise to cover for HAP in light of the fact that pt. was just at [facility] for lung biopsy adn has had twice chest tube palcments to cover for nosocomial pathogens. would advise to also send the chest tube fluid for cell count and culture. Plan- check sputum cx. check fluid from chest tube for cell count and cx. check blood cx x 2. check UA and urine cx. advise to start pt. on empiric broad spectrum antibiotic coverage for nosocomial pathogens pending further results. advise to f/u lung biopsy result from [place] as well. check for mycoplasma and legionella as well.. All labs and imaging reviewed. case d/w patient and his and all their questions answered. Thank you for allowing me to take part in the care of this patient. ICU time 60 minutes.
[2017-10-09] MEDS ORDERED: Acetaminophen IV IVPB ONE (15:15)
--- NOTE | 2017-10-09 17:10 | CP.CCUPN ---
CCU Subjective - Physician Review Events Since Last Encounter (Free Text): 10/09/17 17:21 76 Years old Male with PMHx of HTN, Hypercholesterolemia, Atrial Fibrillation, COPD, Emphysema, Pneumonia, Chronic Kidney Disease and multiple pulmonary nodules S/P HAYDE biopsy on 10/04, Who presented to the Emergency department complaining of shortness of breath and Hemopyysis post lung [facility] He was found to have pneumothorax, now with persistent air-leak despite chest tube placement. He underwent today insertion of left anterior and left posterior chest tube with evacuation of small hemothorax Procedure done under General Anesthesia and was uneventful~~ Patient was successfully extubated, admitted to ICU hemodynamically stable, He received 2 mg IV Morphine, 1000mg IV Tylenol and Oxycodone. Awake, comfortable, NAD Denies any chest pain or SOB~ CCU Objective - Vital Signs / Intake & Output Vital Signs (Last 4 hours): Vital Signs Pulse Resp Pulse Ox 10/09/17 15:31 22 10/09/17 14:08 129 H 91 L Intake and Output (Last 8hrs): Intake & Output 10/09/17 10/09/17 10/09/17 06:59 14:59 22:59 Intake Total 80 700 Output Total 500 152 Balance -420 548 Intake: IV 80 550 Oral 150 Output: Chest Tube Drainage 32 Left Upper Lateral Chest 32 Urine 500 120 Urine, Voided 500 120 - Physical Exam Physical Exam Limitations: Positive for: Clinical Condition Head: Positive for: Atraumatic, Normocephalic Pupils: Positive for: PERRL Extroacular Muscles: Positive for: EOMI Conjunctiva: Positive for: Normal. Negative for: Injected, Icteric Mouth: Positive for: Moist Mucous Membranes Nose (External): Positive for: Atraumatic. Negative for: Abrasion Neck: Positive for: Normal Range of Motion, Trachea Midline. Negative for: Meningeal Signs, MIDLINE TENDERNESS, Paraspinal Tenderness, JVD, Lymphadenopathy , Bruit, Other Respiratory/Chest: Positive for: Good Air Exchange, Wheezes (Intermitent), Decreased Breath Sounds. Negative for: Respiratory Distress, Accessory Muscle Use, Rales Cardiovascular: Positive for: Irregular Rhythm, Peripheal Pulses Present. Negative for: Murmurs, Normal S1, S2, Tachycardic, Bradycardic Abdomen: Positive for: Normal Bowel Sounds. Negative for: Tenderness, Distention, Peritoneal Signs Upper Extremity: Positive for: Normal Inspection, NORMAL PULSES, Capillary Refill < 2s. Negative for: Cyanosis, Edema Lower Extremity: Positive for: Normal Inspection, NORMAL PULSES, Capillary Refill < 2 s. Negative for: Edema, CALF TENDERNESS Neurological: Positive for: GCS=15, CN II-XII Intact, Speech Normal, Motor Func Grossly Intact, Normal Sensory Function Skin: Positive for: Warm, Normal Color. Negative for: Rashes Psychiatric: Positive for: Alert, Oriented x 3, Normal Insight, Normal Concentration - Medications Active Medications: Active Medications Generic Name Dose Route Start Last Admin Trade Name Freq PRN Reason Stop Dose Admin Acetaminophen 650 mg 10/07/17 19:17 10/08/17 00:25 Tylenol 325mg Tab PO 650 mg Q6H PRN Administration Pain, Mild (1-3) Albuterol/Ipratropium 3 ml 10/08/17 12:00 10/09/17 15:30 Duoneb 3 Mg/0.5 Mg (3 Ml) Ud INH Not Given RQID ULISES Atorvastatin Calcium 40 mg 10/07/17 21:00 10/08/17 21:18 Lipitor PO 40 mg DAILY@2100 ULISES Administration Dextrose 0 ml 10/07/17 19:49 Dextrose 50% Inj IV STAT PRN Hypoglycemia Protocol Protocol Dextrose 0 gm 10/07/17 19:49 Glutose 15 PO ONCE PRN Hypoglycemia Protocol Protocol Famotidine 20 mg 10/08/17 13:15 10/09/17 08:38 Pepcid PO 20 mg DAILY ULISES Administration Finasteride 5 mg 10/08/17 09:00 10/09/17 12:00 Proscar PO Not Given DAILY ULISES Gabapentin 300 mg 10/07/17 22:00 10/08/17 21:19 Neurontin PO 300 mg HS ULISES Administration Glucagon 0 mg 10/07/17 19:49 Glucagen Diagnostic Kit IM STAT PRN Hypoglycemia Protocol Protocol Hydrochlorothiazide 12.5 mg 10/08/17 09:00 10/08/17 14:04 Microzide PO Not Given DAILY ULISES Meropenem 1 gm/ Sodium 100 mls @ 100 mls/hr 10/09/17 21:00 Chloride IVPB Q12 ULISES Protocol Insulin Detemir 10 units 10/07/17 22:00 10/08/17 21:18 Levemir SC 10 units HS ULISES Administration Levalbuterol HCl 0.63 mg 10/08/17 09:07 10/08/17 13:00 Xopenex INH 0.63 mg RQ4 PRN Administration Shortness of Breath Losartan Potassium 50 mg 10/08/17 09:00 10/09/17 08:33 Cozaar PO 50 mg DAILY ULISES Administration Morphine Sulfate 4 mg 10/09/17 16:26 Morphine IVP Q4 PRN Pain, moderate (4-7) Ondansetron HCl 4 mg 10/09/17 15:01 Zofran Inj IVP Q6 PRN Nausea/Vomiting Oxycodone HCl 5 mg 10/09/17 16:27 Oxycodone Immediate Release Tab PO Q6 PRN Pain, Mild (1-3) - Patient Studies Lab Studies: Microbiology Studies 10/07/17 16:35 Blood Culture - Preliminary Blood-Venous NO GROWTH AFTER 48 HOURS 10/07/17 16:35 Blood Culture - Preliminary Blood-Venous NO GROWTH AFTER 48 HOURS Lab Studies 10/09/17 10/09/17 10/09/17 Range/Units 11:45 05:48 04:45 WBC (4.8-10.8) K/uL RBC (4.40-5.90) Mil/uL Hgb (12.0-18.0) g/dL Hct (35.0-51.0) % MCV (80.0-94.0) fl MCH (27.0-31.0) pg MCHC (33.0-37.0) g/dL RDW (11.5-14.5) % Plt Count (130-400) K/uL MPV (7.2-11.7) fl Neut % (Auto) (50.0-75.0) % Lymph % (Auto) (20.0-40.0) % [place] % (Auto) (0.0-10.0) % Eos % (Auto) (0.0-4.0) % Baso % (Auto) (0.0-2.0) % Neut # (Auto) (1.8-7.0) K/uL Lymph # (Auto) (1.0-4.3) K/uL [place] # (Auto) (0.0-0.8) K/uL Eos # (Auto) (0.0-0.7) K/uL Baso # (Auto) (0.0-0.2) K/uL Sodium 141 (132-148) mmol/l Potassium 5.0 (3.6-5.0) MMOL/L Chloride 100 (98-107) mmol/L Carbon Dioxide 31 H (22-30) mmol/L Anion Gap 15 (10-20) BUN 50 H (9-20) mg/dl Creatinine 1.2 (0.8-1.5) mg/dl Est GFR ( Amer) > 60 Est GFR (Non-Af Amer) 59 POC Glucose (mg/dL) 93 121 H (65-110) mg/dL Random Glucose 120 H (75-110) mg/dL Calcium 9.5 (8.4-10.2) mg/dL Total Bilirubin 0.7 (0.2-1.3) mg/dl AST 98 H D (17-59) U/L ALT 44 (21-72) U/L Alkaline Phosphatase 54 (38-126) U/L Total Protein 6.6 (6.3-8.2) G/DL Albumin 3.8 (3.5-5.0) g/dL Globulin 2.8 (2.2-3.9) gm/dL Albumin/Globulin Ratio 1.3 (1.0-2.1) Blood Type Antibody Screen Crossmatch BBK History Checked 10/09/17 10/08/17 10/08/17 Range/Units 04:45 21:09 15:53 WBC 18.8 H D (4.8-10.8) K/uL RBC 4.13 L (4.40-5.90) Mil/uL Hgb 12.9 (12.0-18.0) g/dL Hct 38.2 (35.0-51.0) % MCV 92.6 (80.0-94.0) fl MCH 31.2 H (27.0-31.0) pg MCHC 33.7 (33.0-37.0) g/dL RDW 13.9 (11.5-14.5) % Plt Count 265 (130-400) K/uL MPV 7.4 (7.2-11.7) fl Neut % (Auto) 86.7 H (50.0-75.0) % Lymph % (Auto) 5.9 L (20.0-40.0) % [place] % (Auto) 7.3 (0.0-10.0) % Eos % (Auto) 0.0 (0.0-4.0) % Baso % (Auto) 0.1 (0.0-2.0) % Neut # (Auto) 16.3 H (1.8-7.0) K/uL Lymph # (Auto) 1.1 (1.0-4.3) K/uL [place] # (Auto) 1.4 H (0.0-0.8) K/uL Eos # (Auto) 0.0 (0.0-0.7) K/uL Baso # (Auto) 0.0 (0.0-0.2) K/uL Sodium (132-148) mmol/l Potassium (3.6-5.0) MMOL/L Chloride (98-107) mmol/L Carbon Dioxide (22-30) mmol/L Anion Gap (10-20) BUN (9-20) mg/dl Creatinine (0.8-1.5) mg/dl Est GFR ( Amer) Est GFR (Non-Af Amer) POC Glucose (mg/dL) 214 H 180 H (65-110) mg/dL Random Glucose (75-110) mg/dL Calcium (8.4-10.2) mg/dL Total Bilirubin (0.2-1.3) mg/dl AST (17-59) U/L ALT (21-72) U/L Alkaline Phosphatase (38-126) U/L Total Protein (6.3-8.2) G/DL Albumin (3.5-5.0) g/dL Globulin (2.2-3.9) gm/dL Albumin/Globulin Ratio (1.0-2.1) Blood Type Antibody Screen Crossmatch BBK History Checked 10/08/17 10/08/17 10/07/17 Range/Units 11:44 07:58 23:03 WBC (4.8-10.8) K/uL RBC (4.40-5.90) Mil/uL Hgb (12.0-18.0) g/dL Hct (35.0-51.0) % MCV (80.0-94.0) fl MCH (27.0-31.0) pg MCHC (33.0-37.0) g/dL RDW (11.5-14.5) % Plt Count (130-400) K/uL MPV (7.2-11.7) fl Neut % (Auto) (50.0-75.0) % Lymph % (Auto) (20.0-40.0) % [place] % (Auto) (0.0-10.0) % Eos % (Auto) (0.0-4.0) % Baso % (Auto) (0.0-2.0) % Neut # (Auto) (1.8-7.0) K/uL Lymph # (Auto) (1.0-4.3) K/uL [place] # (Auto) (0.0-0.8) K/uL Eos # (Auto) (0.0-0.7) K/uL Baso # (Auto) (0.0-0.2) K/uL Sodium (132-148) mmol/l Potassium (3.6-5.0) MMOL/L Chloride (98-107) mmol/L Carbon Dioxide (22-30) mmol/L Anion Gap (10-20) BUN (9-20) mg/dl Creatinine (0.8-1.5) mg/dl Est GFR ( Amer) Est GFR (Non-Af Amer) POC Glucose (mg/dL) 229 H 167 H 194 H (65-110) mg/dL Random Glucose (75-110) mg/dL Calcium (8.4-10.2) mg/dL Total Bilirubin (0.2-1.3) mg/dl AST (17-59) U/L ALT (21-72) U/L Alkaline Phosphatase (38-126) U/L Total Protein (6.3-8.2) G/DL Albumin (3.5-5.0) g/dL Globulin (2.2-3.9) gm/dL Albumin/Globulin Ratio (1.0-2.1) Blood Type Antibody Screen Crossmatch BBK History Checked 10/07/17 10/07/17 Range/Units 20:06 16:35 WBC (4.8-10.8) K/uL RBC (4.40-5.90) Mil/uL Hgb (12.0-18.0) g/dL Hct (35.0-51.0) % MCV (80.0-94.0) fl MCH (27.0-31.0) pg MCHC (33.0-37.0) g/dL RDW (11.5-14.5) % Plt Count (130-400) K/uL MPV (7.2-11.7) fl Neut % (Auto) (50.0-75.0) % Lymph % (Auto) (20.0-40.0) % [place] % (Auto) (0.0-10.0) % Eos % (Auto) (0.0-4.0) % Baso % (Auto) (0.0-2.0) % Neut # (Auto) (1.8-7.0) K/uL Lymph # (Auto) (1.0-4.3) K/uL [place] # (Auto) (0.0-0.8) K/uL Eos # (Auto) (0.0-0.7) K/uL Baso # (Auto) (0.0-0.2) K/uL Sodium (132-148) mmol/l Potassium (3.6-5.0) MMOL/L Chloride (98-107) mmol/L Carbon Dioxide (22-30) mmol/L Anion Gap (10-20) BUN (9-20) mg/dl Creatinine (0.8-1.5) mg/dl Est GFR ( Amer) Est GFR (Non-Af Amer) POC Glucose (mg/dL) 208 H (65-110) mg/dL Random Glucose (75-110) mg/dL Calcium (8.4-10.2) mg/dL Total Bilirubin (0.2-1.3) mg/dl AST (17-59) U/L ALT (21-72) U/L Alkaline Phosphatase (38-126) U/L Total Protein (6.3-8.2) G/DL Albumin (3.5-5.0) g/dL Globulin (2.2-3.9) gm/dL Albumin/Globulin Ratio (1.0-2.1) Blood Type A POSITIVE Antibody Screen Negative Crossmatch See Detail BBK History Checked Patient has bt Laboratory Results - last 24 hr 10/07/17 10/07/17 10/07/17 16:35 20:06 23:03 WBC RBC Hgb Hct MCV MCH MCHC RDW Plt Count MPV Neut % (Auto) Lymph % (Auto) [place] % (Auto) Eos % (Auto) Baso % (Auto) Neut # (Auto) Lymph # (Auto) [place] # (Auto) Eos # (Auto) Baso # (Auto) Sodium Potassium Chloride Carbon Dioxide Anion Gap BUN Creatinine Est GFR ( Amer) Est GFR (Non-Af Amer) POC Glucose (mg/dL) 208 H 194 H Random Glucose Calcium Total Bilirubin AST ALT Alkaline Phosphatase Total Protein Albumin Globulin Albumin/Globulin Ratio Blood Type A POSITIVE Antibody Screen Negative Crossmatch See Detail BBK History Checked Patient has bt 10/08/17 10/08/17 10/08/17 07:58 11:44 15:53 WBC RBC Hgb Hct MCV MCH MCHC RDW Plt Count MPV Neut % (Auto) Lymph % (Auto) [place] % (Auto) Eos % (Auto) Baso % (Auto) Neut # (Auto) Lymph # (Auto) [place] # (Auto) Eos # (Auto) Baso # (Auto) Sodium Potassium Chloride Carbon Dioxide Anion Gap BUN Creatinine Est GFR ( Amer) Est GFR (Non-Af Amer) POC Glucose (mg/dL) 167 H 229 H 180 H Random Glucose Calcium Total Bilirubin AST ALT Alkaline Phosphatase Total Protein Albumin Globulin Albumin/Globulin Ratio Blood Type Antibody Screen Crossmatch BBK History Checked 10/08/17 10/09/17 10/09/17 21:09 04:45 04:45 WBC 18.8 H D RBC 4.13 L Hgb 12.9 Hct 38.2 MCV 92.6 MCH 31.2 H MCHC 33.7 RDW 13.9 Plt Count 265 MPV 7.4 Neut % (Auto) 86.7 H Lymph % (Auto) 5.9 L [place] % (Auto) 7.3 Eos % (Auto) 0.0 Baso % (Auto) 0.1 Neut # (Auto) 16.3 H Lymph # (Auto) 1.1 [place] # (Auto) 1.4 H Eos # (Auto) 0.0 Baso # (Auto) 0.0 Sodium 141 Potassium 5.0 Chloride 100 Carbon Dioxide 31 H Anion Gap 15 BUN 50 H Creatinine 1.2 Est GFR ( Amer) > 60 Est GFR (Non-Af Amer) 59 POC Glucose (mg/dL) 214 H Random Glucose 120 H Calcium 9.5 Total Bilirubin 0.7 AST 98 H D ALT 44 Alkaline Phosphatase 54 Total Protein 6.6 Albumin 3.8 Globulin 2.8 Albumin/Globulin Ratio 1.3 Blood Type Antibody Screen Crossmatch BBK History Checked 10/09/17 10/09/17 05:48 11:45 WBC RBC Hgb Hct MCV MCH MCHC RDW Plt Count MPV Neut % (Auto) Lymph % (Auto) [place] % (Auto) Eos % (Auto) Baso % (Auto) Neut # (Auto) Lymph # (Auto) [place] # (Auto) Eos # (Auto) Baso # (Auto) Sodium Potassium Chloride Carbon Dioxide Anion Gap BUN Creatinine Est GFR ( Amer) Est GFR (Non-Af Amer) POC Glucose (mg/dL) 121 H 93 Random Glucose Calcium Total Bilirubin AST ALT Alkaline Phosphatase Total Protein Albumin Globulin Albumin/Globulin Ratio Blood Type Antibody Screen Crossmatch BBK History Checked EKG/Cardiology Studies: Cardiology / EKG Studies 10/09/17 EKG [ELECTROCARDIOGRAM] Routine Comment: Mode Of Transportation: PORTABLE Reason For Exam: A Fib Fingerstick Blood Sugar Results: 93 Review of Systems - Constitutional Constitutional: absent: Fever, Chills, Sweats, Weakness, Malaise - Cardiovascular Cardiovascular: absent: Chest Pain, Chest Pain at Rest, Chest Pain with Activity , Claudication, Diaphoresis - Respiratory Respiratory: Hemoptysis, Dyspnea on Exertion, Wheezing. absent: Cough, Dyspnea , Snoring, Stridor - Gastrointestinal Gastrointestinal: absent: Abdominal Pain, Coffee Ground Emesis, Melena, Nausea, Vomiting Critical Care Progress Note - Extremities/Vascular Does the Patient have a Central Venous Catheter?: No Does the Patient need a Central Venous Catheter?: No Does the Patient have a Valenzuela Catheter?: No Does the Patient need a Valenzuela Catheter?: No - Nutrition Nutrition: Nutrition Category Date Time Status Heart Healthy Diet [DIET] Diets 10/09/17 Lunch Active Assessment/Plan (1) Pneumothorax Current Visit: Yes Status: Acute Priority: High (2) Elevated troponin I level Current Visit: No Status: Acute (3) Pneumonia Current Visit: No Status: Acute Priority: High (4) COPD (chronic obstructive pulmonary disease) Current Visit: Yes Status: Chronic Priority: High (5) Pulmonary emphysema Current Visit: Yes Status: Chronic Priority: High (6) Pulmonary nodules/lesions, multiple Current Visit: Yes Status: Chronic Priority: High (7) Type 2 diabetes mellitus Current Visit: Yes Status: Chronic Priority: High (8) Atrial fibrillation Current Visit: Yes Status: Chronic Priority: High - Assessment and Plan (Free Text) Assessment: POD #0 S/P left anterior and left posterior chest tube with evacuation of small hemothorax Continue with SICU for hemodynamic and respiratory monitoring Monitor chest tube output, CT to suction Chest CT scan IV Hydration IV Antibiotics as per ID Pain control wit Tylenol and MORPHIN IV Q4H PRN Clear liquid diet, Advance as tolerate Bowel regimen Monitor urine output Restart outpatient meds BD nebs Q 6H~PRN PRN~Ondansetron Tight glycemic control, RISS~with~Coverage OOB chair, fall precautions, aspiration precaution Incentive spirometry Aggressive pulmonary toilet, chest PT GI/DVT PPX with SCDs, START LMWH IN AM IF NO BLEED GI PPX
--- NOTE | 2017-10-09 18:05 | RAD ---
Date of service: 10/09/2017 PROCEDURE: Fluoroscopy in excess of 1 hour. HISTORY: CHEST TUBE INSERTION COMPARISON: None TECHNIQUE: Standard protocol for this study/examination. FINDINGS: Total fluoroscopic time (continuous mode) utilized during the procedure 70.7 (seconds). Total exam DLP: 3.34 (mGy) IMPRESSION: Submitted images from the current procedure: 2.0
--- NOTE | 2017-10-09 18:19 | CARD ---
APPROVED REPORT Date of service: 10/09/2017 <Conclusion> Atrial fibrillation with rapid ventricular response with premature ventricular or aberrantly conducted complexes Low voltage QRS Cannot rule out Anteroseptal infarct, age undetermined Abnormal ECG
--- NOTE | 2017-10-09 18:25 | RAD ---
Date of service: 10/09/2017 HISTORY: s/p chest tube placement COMPARISON: October 09, 2017. Time of the most recent examination: 04:49. FINDINGS: LUNGS: No discrete/acute infiltrates. PLEURA: Status post placement of a 2nd chest tube in the left pleural space. The tip is in the apex of the left graciela thorax. No visible pneumothorax. CARDIOVASCULAR: Normal. OSSEOUS STRUCTURES: No significant abnormalities. VISUALIZED UPPER ABDOMEN: Normal. OTHER FINDINGS: Stable subcutaneous emphysema. IMPRESSION: No pneumothorax or other adverse findings following placement of a 2nd chest tube the tip in the apex of the left graciela thorax. Otherwise no interval
[2017-10-09] MEDS: Meropenem 1 GM in Sodium Chloride 0.9% 100 ML IVPB SCH (21:31)
[2017-10-09] MEDS: Insulin Detemir 100 Units/ml Inj SC SCH (21:38)
[2017-10-10 05:49] LABS: BASO % 0.3 % (0.0-2.0); EOS # 0.2 K/uL (0.0-0.7); EOS % 1.9 % (0.0-4.0); HEMOGLOBIN 12.4 g/dL (12.0-18.0); LYMPH # 2.1 K/uL (1.0-4.3); LYMPH % 20.6 % (20.0-40.0); MEAN CELL VOLUME 92.9 fl (80.0-94.0); MEAN CORPUSCULAR HEMOGLOBIN 32.1 pg (27.0-31.0); MEAN CORPUSCULAR HGB CONC 34.6 g/dL (33.0-37.0); MEAN PLATELET VOLUME 7.3 fl (7.2-11.7); MONO % 9.7 % (0.0-10.0); NEUT # 6.7 K/uL (1.8-7.0); NEUT % 67.5 % (50.0-75.0); RBC 3.87 Mil/uL (4.40-5.90); RED CELL DISTRIBUTION WIDTH 13.9 % (11.5-14.5)
[2017-10-10 06:21] LABS: ALB/GLOB RATIO 1.4 (1.0-2.1); ALBUMIN 3.4 g/dL (3.5-5.0); ALT/SGPT 63 U/L (21-72); AST/SGOT 97 U/L (17-59); BLOOD UREA NITROGEN 48 mg/dl (9-20); CALCIUM 8.8 mg/dL (8.4-10.2); GFR AFRICAN-AMERICAN > 60; GFR NON-AFRICAN AMERICAN > 60
--- NOTE | 2017-10-10 07:30 | CP.PCM.PN ---
Subjective - Date & Time of Evaluation Date of Evaluation: 10/10/17 Time of Evaluation: 07:28 - Subjective Subjective: CT surgery progress note for Dr. Apple Garcia, PGY-2 Pt S & E at bedside at 0715 Pt reports improved SOB, pain well controlled. Was able to sleep overnight. Tolerating diet. Just states that he feels tired. No other complaints. Objective - Vital Signs/Intake and Output Vital Signs (last 24 hours): Temp Pulse Resp BP Pulse Ox 97.5 F L 91 H 12 109/66 100 10/10/17 04:00 10/10/17 06:00 10/10/17 06:00 10/10/17 06:00 10/10/17 06:00 Intake and Output: 10/10/17 10/10/17 06:59 18:59 Intake Total 290 Output Total 540 Balance -250 - Medications Medications: Current Medications Albuterol/Ipratropium (Duoneb 3 Mg/0.5 Mg (3 Ml) Ud) 3 ml INH RQID [facility] Last Admin: 10/09/17 19:27 Dose: 3 ml Atorvastatin Calcium (Lipitor) 40 mg PO DAILY@2100 [facility] Last Admin: 10/09/17 21:30 Dose: 40 mg Dextrose (Dextrose 50% Inj) 0 ml IV STAT PRN; Protocol PRN Reason: Hypoglycemia Protocol Dextrose (Glutose 15) 0 gm PO ONCE PRN; Protocol PRN Reason: Hypoglycemia Protocol Famotidine (Pepcid) 20 mg PO DAILY [facility] Last Admin: 10/09/17 08:38 Dose: 20 mg Finasteride (Proscar) 5 mg PO DAILY [facility] Last Admin: 10/09/17 12:00 Dose: Not Given Gabapentin (Neurontin) 300 mg PO [facility] Last Admin: 10/09/17 21:30 Dose: 300 mg Glucagon (Glucagen Diagnostic Kit) 0 mg IM STAT PRN; Protocol PRN Reason: Hypoglycemia Protocol Hydrochlorothiazide (Microzide) 12.5 mg PO DAILY [facility] Last Admin: 10/08/17 14:04 Dose: Not Given Meropenem 1 gm/ Sodium (Chloride) 100 mls @ 100 mls/hr IVPB Q12 ULISES PRN Reason: Protocol Last Admin: 10/09/17 21:31 Dose: 100 mls/hr Insulin Detemir (Levemir) 10 units SC [facility] Last Admin: 10/09/17 21:38 Dose: 10 units Levalbuterol HCl (Xopenex) 0.63 mg INH RQ4 PRN PRN Reason: Shortness of Breath Last Admin: 10/08/17 13:00 Dose: 0.63 mg Losartan Potassium (Cozaar) 50 mg PO DAILY [facility] Last Admin: 10/09/17 08:33 Dose: 50 mg Morphine Sulfate (Morphine) 4 mg IVP Q4 PRN PRN Reason: Pain, moderate (4-7) Last Admin: 10/10/17 03:25 Dose: 4 mg Ondansetron HCl (Zofran Inj) 4 mg IVP Q6 PRN PRN Reason: Nausea/Vomiting Oxycodone HCl (Oxycodone Immediate Release Tab) 5 mg PO Q6 PRN PRN Reason: Pain, Mild (1-3) - Labs Labs: 10/10/17 04:40 10/10/17 04:40 PT 13.3 Seconds (9.8-13.1) H 10/07/17 16:35 INR 1.2 10/07/17 16:35 APTT 34.1 Seconds (25.6-37.1) 10/07/17 16:35 - Constitutional Appears: Non-toxic, No Acute Distress - Head Exam Head Exam: ATRAUMATIC, NORMAL INSPECTION, NORMOCEPHALIC - Eye Exam Eye Exam: EOMI, Normal appearance - ENT Exam ENT Exam: Mucous Membranes Moist, Normal Exam - Neck Exam Neck Exam: Full ROM, Normal Inspection - Respiratory Exam Respiratory Exam: NORMAL BREATHING PATTERN. absent: Accessory Muscle Use, Chest Wall Tenderness, Wheezes, Respiratory Distress Additional comments: Left chest tube insertion site with dressing in place- clean/dry/intact Crepitus to from axilla to mediastinum on exam over left chest wall - Cardiovascular Exam Cardiovascular Exam: REGULAR RHYTHM, +S1, +S2 - GI/Abdominal Exam GI & Abdominal Exam: Soft. absent: Distended, Tenderness - Extremities Exam Extremities Exam: Normal Inspection - Neurological Exam Neurological Exam: Alert, Awake, CN II-XII Intact, Oriented x3 - Psychiatric Exam Psychiatric exam: Normal Affect, Normal Mood - Skin Skin Exam: Dry, Intact, Normal Color, Warm Assessment and Plan - Assessment and Plan (Free Text) Assessment: 76M w/persistent L pneumothorax s/p Chest tube insertion x 2 (anterior & posterior); clinically improved Plan: Chest tubes to wall suction Monitor output FU CT chest this AM Target SaO2>94% Encourage IS use OOBTC Further mgmt as per primary team Will ALEXANDRO attending Radha, PGY-2
[2017-10-10] MEDS: Albuterol-Ipratrop 3 mg / 0.5 (3 ml) UD INH SCH ×4 (07:56→19:14)
--- NOTE | 2017-10-10 08:31 | CP.PCM.PN ---
Subjective - Date & Time of Evaluation Date of Evaluation: 10/10/17 Time of Evaluation: 08:31 - Subjective Subjective: Initially out of the room for CT chest. Returned later to evaluate patient who was soundly asleep. CT chest shows pneumothorax has resolved after initial tube was removed and 2 additional tubes inserted. No air leak present in either PleurEvac. The patient has remained afebrile and the leukocytosis has resolved. Hopefully chest tubes can be removed in a timely manner and he can continue to have followup at [facility] [place]. Objective - Vital Signs/Intake and Output Vital Signs (last 24 hours): Temp Pulse Resp BP Pulse Ox 97.5 F L 91 H 12 109/66 100 10/10/17 04:00 10/10/17 06:00 10/10/17 07:57 10/10/17 06:00 10/10/17 06:00 Intake and Output: 10/09/17 10/10/17 23:59 11:59 Intake Total 750 250 Output Total 372 340 Balance 378 -90 - Medications Medications: Current Medications Albuterol/Ipratropium (Duoneb 3 Mg/0.5 Mg (3 Ml) Ud) 3 ml INH RQID [facility] Last Admin: 10/10/17 07:56 Dose: 3 ml Atorvastatin Calcium (Lipitor) 40 mg PO DAILY@2100 [facility] Last Admin: 10/09/17 21:30 Dose: 40 mg Dextrose (Dextrose 50% Inj) 0 ml IV STAT PRN; Protocol PRN Reason: Hypoglycemia Protocol Dextrose (Glutose 15) 0 gm PO ONCE PRN; Protocol PRN Reason: Hypoglycemia Protocol Famotidine (Pepcid) 20 mg PO DAILY [facility] Last Admin: 10/09/17 08:38 Dose: 20 mg Finasteride (Proscar) 5 mg PO DAILY [facility] Last Admin: 10/09/17 12:00 Dose: Not Given Gabapentin (Neurontin) 300 mg PO HS [facility] Last Admin: 10/09/17 21:30 Dose: 300 mg Glucagon (Glucagen Diagnostic Kit) 0 mg IM STAT PRN; Protocol PRN Reason: Hypoglycemia Protocol Hydrochlorothiazide (Microzide) 12.5 mg PO DAILY [facility] Last Admin: 10/08/17 14:04 Dose: Not Given Meropenem 1 gm/ Sodium (Chloride) 100 mls @ 100 mls/hr IVPB Q12 ULISES PRN Reason: Protocol Last Admin: 10/09/17 21:31 Dose: 100 mls/hr Insulin Detemir (Levemir) 10 units SC HS [facility] Last Admin: 10/09/17 21:38 Dose: 10 units Levalbuterol HCl (Xopenex) 0.63 mg INH RQ4 PRN PRN Reason: Shortness of Breath Last Admin: 10/08/17 13:00 Dose: 0.63 mg Losartan Potassium (Cozaar) 50 mg PO DAILY [facility] Last Admin: 10/09/17 08:33 Dose: 50 mg Morphine Sulfate (Morphine) 4 mg IVP Q4 PRN PRN Reason: Pain, moderate (4-7) Last Admin: 10/10/17 03:25 Dose: 4 mg Ondansetron HCl (Zofran Inj) 4 mg IVP Q6 PRN PRN Reason: Nausea/Vomiting Oxycodone HCl (Oxycodone Immediate Release Tab) 5 mg PO Q6 PRN PRN Reason: Pain, Mild (1-3) - Labs Labs: 10/10/17 04:40 10/10/17 04:40 PT 13.3 Seconds (9.8-13.1) H 10/07/17 16:35 INR 1.2 10/07/17 16:35 APTT 34.1 Seconds (25.6-37.1) 10/07/17 16:35
[2017-10-10] MEDS: oxyCODONE 5 mg Immediate Release Tab PO PRN ×2 (08:43→13:28)
[2017-10-10] MEDS: Meropenem 1 GM in Sodium Chloride 0.9% 100 ML IVPB SCH ×2 (09:02→21:19)
--- NOTE | 2017-10-10 10:15 | RAD ---
Date of service: 10/10/2017 HISTORY: chest tubes COMPARISON: 10/09/2017. FINDINGS: Stable position of 2 left chest tubes. LUNGS: Lungs are well inflated and clear. PLEURA: The costophrenic angles have been excluded from the film. No pneumothorax or large pleural effusion. CARDIOVASCULAR: Normal. OSSEOUS STRUCTURES: No significant abnormalities. VISUALIZED UPPER ABDOMEN: Normal. OTHER FINDINGS: Extensive soft tissue emphysema along the left lateral chest wall. IMPRESSION: The costophrenic angles have been excluded from the film. Allowing for this, no interval change.
--- NOTE | 2017-10-10 10:30 | CP.PCM.PN ---
Subjective - Date & Time of Evaluation Date of Evaluation: 10/10/17 Time of Evaluation: 10:30 - Subjective Subjective: ID note- Pt. seen and examined today in ICU. Patient is in much better spirits today. states he feels better and his breathing has improved and his pain in the left chest tube site area is much less. Objective - Vital Signs/Intake and Output Vital Signs (last 24 hours): Temp Pulse Resp BP Pulse Ox 97.5 F L 97 H 17 130/64 100 10/10/17 08:00 10/10/17 10:00 10/10/17 10:00 10/10/17 10:00 10/10/17 10:00 Intake and Output: 10/10/17 10/10/17 06:59 18:59 Intake Total 290 270 Output Total 540 Balance -250 270 - Medications Medications: Current Medications Albuterol/Ipratropium (Duoneb 3 Mg/0.5 Mg (3 Ml) Ud) 3 ml INH RQID [facility] Last Admin: 10/10/17 07:56 Dose: 3 ml Atorvastatin Calcium (Lipitor) 40 mg PO DAILY@2100 [facility] Last Admin: 10/09/17 21:30 Dose: 40 mg Dextrose (Dextrose 50% Inj) 0 ml IV STAT PRN; Protocol PRN Reason: Hypoglycemia Protocol Dextrose (Glutose 15) 0 gm PO ONCE PRN; Protocol PRN Reason: Hypoglycemia Protocol Famotidine (Pepcid) 20 mg PO DAILY [facility] Last Admin: 10/10/17 08:59 Dose: 20 mg Finasteride (Proscar) 5 mg PO DAILY [facility] Last Admin: 10/10/17 09:00 Dose: 5 mg Gabapentin (Neurontin) 300 mg PO [facility] Last Admin: 10/09/17 21:30 Dose: 300 mg Glucagon (Glucagen Diagnostic Kit) 0 mg IM STAT PRN; Protocol PRN Reason: Hypoglycemia Protocol Hydrochlorothiazide (Microzide) 12.5 mg PO DAILY [facility] Last Admin: 10/08/17 14:04 Dose: Not Given Meropenem 1 gm/ Sodium (Chloride) 100 mls @ 100 mls/hr IVPB Q12 ULISES PRN Reason: Protocol Last Admin: 10/10/17 09:02 Dose: 100 mls/hr Insulin Detemir (Levemir) 10 units SC [facility] Last Admin: 10/09/17 21:38 Dose: 10 units Levalbuterol HCl (Xopenex) 0.63 mg INH RQ4 PRN PRN Reason: Shortness of Breath Last Admin: 10/08/17 13:00 Dose: 0.63 mg Losartan Potassium (Cozaar) 50 mg PO DAILY [facility] Last Admin: 10/10/17 09:03 Dose: 50 mg Morphine Sulfate (Morphine) 2 mg IVP Q4 PRN PRN Reason: Pain, moderate (4-7) Ondansetron HCl (Zofran Inj) 4 mg IVP Q6 PRN PRN Reason: Nausea/Vomiting Oxycodone HCl (Oxycodone Immediate Release Tab) 5 mg PO Q6 PRN PRN Reason: Pain, Mild (1-3) Last Admin: 10/10/17 08:43 Dose: 5 mg - Labs Labs: - Additional Findings Additional findings: - Constitutional Appears: Chronically Ill - Head Exam Head Exam: ATRAUMATIC - Eye Exam Eye Exam: EOMI, PERRL - ENT Exam ENT Exam: Normal Oropharynx - Neck Exam Neck exam: Positive for: Full Rom - Respiratory Exam Additional comments: decreased breath sounds in left base no wheezing has 2 chest tubes in left chest , one anterior and one posterior draining serosanguinous fluid - Cardiovascular Exam Cardiovascular Exam: Tachycardia, +S1, +S2 - GI/Abdominal Exam GI & Abdominal Exam: Normal Bowel Sounds, Soft Additional comments: NT, ND - Extremities Exam Extremities exam: Positive for: normal inspection Additional comments: no edema B/L LE - Neurological Exam Neurological exam: Alert, Oriented x 3 Laboratory Results - last 72 hr 10/07/17 10/07/17 10/07/17 16:35 16:35 16:35 WBC 13.6 H D RBC 4.71 Hgb 14.9 Hct 43.7 MCV 92.9 MCH 31.7 H MCHC 34.1 RDW 14.1 Plt Count 362 MPV 7.4 Neut % (Auto) 68.8 Lymph % (Auto) 21.8 [place] % (Auto) 8.2 Eos % (Auto) 0.8 Baso % (Auto) 0.4 Neut # (Auto) 9.3 H Lymph # (Auto) 3.0 [place] # (Auto) 1.1 H Eos # (Auto) 0.1 Baso # (Auto) 0.0 Neutrophils % (Manual) Lymphocytes % (Manual) Monocytes % (Manual) Platelet Estimate PT 13.3 H INR 1.2 APTT 34.1 pCO2 pO2 HCO3 ABG pH ABG Total CO2 ABG O2 Saturation ABG O2 Content ABG Base Excess ABG Hemoglobin ABG Carboxyhemoglobin POC ABG HHb (Measured) ABG Methemoglobin ABG O2 Capacity Scout Test A-a O2 Difference Hgb O2 Saturation Vent Mode FiO2 Sodium 138 Potassium 4.9 Chloride 99 Carbon Dioxide 25 Anion Gap 19 BUN 21 H Creatinine 1.0 Est GFR ( Amer) > 60 Est GFR (Non-Af Amer) > 60 POC Glucose (mg/dL) Random Glucose 203 H Calcium 10.0 Phosphorus 5.7 H Magnesium 1.7 Total Bilirubin 1.2 AST 64 H ALT 42 Alkaline Phosphatase 84 Troponin I 1.1400 H* NT-Pro-B Natriuret Pep 4320 H Total Protein 7.9 Albumin 4.7 Globulin 3.3 Albumin/Globulin Ratio 1.4 Fluid Source Fluid Appearance Fluid WBC Fluid RBC Fluid Tot Cell Count Fluid Neutrophils Fluid Lymphocytes Fld Monocyte/Macrophag Fluid Comment Ur L.pneumophila Ag Mycoplasma pneumon IgM Blood Type Antibody Screen Crossmatch BBK History Checked 10/07/17 10/07/17 10/07/17 16:35 20:06 22:37 WBC RBC Hgb Hct MCV MCH MCHC RDW Plt Count MPV Neut % (Auto) Lymph % (Auto) [place] % (Auto) Eos % (Auto) Baso % (Auto) Neut # (Auto) Lymph # (Auto) [place] # (Auto) Eos # (Auto) Baso # (Auto) Neutrophils % (Manual) Lymphocytes % (Manual) Monocytes % (Manual) Platelet Estimate PT INR APTT pCO2 44 pO2 86 HCO3 23.7 ABG pH 7.35 ABG Total CO2 25.7 ABG O2 Saturation 99.9 H ABG O2 Content 19.7 ABG Base Excess -1.5 ABG Hemoglobin 14.8 ABG Carboxyhemoglobin 3.1 H POC ABG HHb (Measured) 0.1 ABG Methemoglobin 2.5 ABG O2 Capacity 19.7 Scout Test Yes A-a O2 Difference 59.0 Hgb O2 Saturation 94.3 L Vent Mode 2lnc FiO2 28.0 Sodium Potassium Chloride Carbon Dioxide Anion Gap BUN Creatinine Est GFR ( Amer) Est GFR (Non-Af Amer) POC Glucose (mg/dL) 208 H Random Glucose Calcium Phosphorus Magnesium Total Bilirubin AST ALT Alkaline Phosphatase Troponin I NT-Pro-B Natriuret Pep Total Protein Albumin Globulin Albumin/Globulin Ratio Fluid Source Fluid Appearance Fluid WBC Fluid RBC Fluid Tot Cell Count Fluid Neutrophils Fluid Lymphocytes Fld Monocyte/Macrophag Fluid Comment Ur L.pneumophila Ag Mycoplasma pneumon IgM Blood Type A POSITIVE Antibody Screen Negative Crossmatch See Detail BBK History Checked Patient has bt 10/07/17 10/08/17 10/08/17 23:03 04:25 04:25 WBC 7.3 RBC 3.75 L Hgb 12.2 D Hct 34.3 L MCV 91.3 MCH 32.6 H MCHC 35.7 RDW 13.7 Plt Count 226 D MPV 7.0 L Neut % (Auto) 91.7 H Lymph % (Auto) 6.9 L [place] % (Auto) 1.4 Eos % (Auto) 0.0 Baso % (Auto) 0.0 Neut # (Auto) 6.7 Lymph # (Auto) 0.5 L [place] # (Auto) 0.1 Eos # (Auto) 0.0 Baso # (Auto) 0.0 Neutrophils % (Manual) 91 H Lymphocytes % (Manual) 8 L Monocytes % (Manual) 1 Platelet Estimate Normal PT INR APTT pCO2 pO2 HCO3 ABG pH ABG Total CO2 ABG O2 Saturation ABG O2 Content ABG Base Excess ABG Hemoglobin ABG Carboxyhemoglobin POC ABG HHb (Measured) ABG Methemoglobin ABG O2 Capacity Scout Test A-a O2 Difference Hgb O2 Saturation Vent Mode FiO2 Sodium 139 Potassium 4.2 Chloride 106 Carbon Dioxide 25 Anion Gap 12 BUN 26 H Creatinine 0.9 Est GFR ( Amer) > 60 Est GFR (Non-Af Amer) > 60 POC Glucose (mg/dL) 194 H Random Glucose 151 H Calcium 8.0 L Phosphorus Magnesium Total Bilirubin 0.7 AST 48 ALT 41 Alkaline Phosphatase 55 Troponin I 0.8600 H* NT-Pro-B Natriuret Pep Total Protein 5.9 L Albumin 3.2 L D Globulin 2.6 Albumin/Globulin Ratio 1.2 Fluid Source Fluid Appearance Fluid WBC Fluid RBC Fluid Tot Cell Count Fluid Neutrophils Fluid Lymphocytes Fld Monocyte/Macrophag Fluid Comment Ur L.pneumophila Ag Mycoplasma pneumon IgM Blood Type Antibody Screen Crossmatch BBK History Checked 08/05/18 08/05/18 08/05/18 07:58 08:45 11:44 WBC RBC Hgb Hct MCV MCH MCHC RDW Plt Count MPV Neut % (Auto) Lymph % (Auto) [place] % (Auto) Eos % (Auto) Baso % (Auto) Neut # (Auto) Lymph # (Auto) [place] # (Auto) Eos # (Auto) Baso # (Auto) Neutrophils % (Manual) Lymphocytes % (Manual) Monocytes % (Manual) Platelet Estimate PT INR APTT pCO2 pO2 HCO3 ABG pH ABG Total CO2 ABG O2 Saturation ABG O2 Content ABG Base Excess ABG Hemoglobin ABG Carboxyhemoglobin POC ABG HHb (Measured) ABG Methemoglobin ABG O2 Capacity Scout Test A-a O2 Difference Hgb O2 Saturation Vent Mode FiO2 Sodium Potassium Chloride Carbon Dioxide Anion Gap BUN Creatinine Est GFR ( Amer) Est GFR (Non-Af Amer) POC Glucose (mg/dL) 167 H 229 H Random Glucose Calcium Phosphorus Magnesium Total Bilirubin AST ALT Alkaline Phosphatase Troponin I 0.7970 H* NT-Pro-B Natriuret Pep Total Protein Albumin Globulin Albumin/Globulin Ratio Fluid Source Fluid Appearance Fluid WBC Fluid RBC Fluid Tot Cell Count Fluid Neutrophils Fluid Lymphocytes Fld Monocyte/Macrophag Fluid Comment Ur L.pneumophila Ag Mycoplasma pneumon IgM Blood Type Antibody Screen Crossmatch BBK History Checked 10/08/17 10/08/17 10/09/17 15:53 21:09 04:45 WBC 18.8 H D RBC 4.13 L Hgb 12.9 Hct 38.2 MCV 92.6 MCH 31.2 H MCHC 33.7 RDW 13.9 Plt Count 265 MPV 7.4 Neut % (Auto) 86.7 H Lymph % (Auto) 5.9 L [place] % (Auto) 7.3 Eos % (Auto) 0.0 Baso % (Auto) 0.1 Neut # (Auto) 16.3 H Lymph # (Auto) 1.1 [place] # (Auto) 1.4 H Eos # (Auto) 0.0 Baso # (Auto) 0.0 Neutrophils % (Manual) Lymphocytes % (Manual) Monocytes % (Manual) Platelet Estimate PT INR APTT pCO2 pO2 HCO3 ABG pH ABG Total CO2 ABG O2 Saturation ABG O2 Content ABG Base Excess ABG Hemoglobin ABG Carboxyhemoglobin POC ABG HHb (Measured) ABG Methemoglobin ABG O2 Capacity Scout Test A-a O2 Difference Hgb O2 Saturation Vent Mode FiO2 Sodium Potassium Chloride Carbon Dioxide Anion Gap BUN Creatinine Est GFR ( Amer) Est GFR (Non-Af Amer) POC Glucose (mg/dL) 180 H 214 H Random Glucose Calcium Phosphorus Magnesium Total Bilirubin AST ALT Alkaline Phosphatase Troponin I NT-Pro-B Natriuret Pep Total Protein Albumin Globulin Albumin/Globulin Ratio Fluid Source Fluid Appearance Fluid WBC Fluid RBC Fluid Tot Cell Count Fluid Neutrophils Fluid Lymphocytes Fld Monocyte/Macrophag Fluid Comment Ur L.pneumophila Ag Mycoplasma pneumon IgM Blood Type Antibody Screen Crossmatch BBK History Checked 10/09/17 10/09/17 10/09/17 04:45 05:48 11:45 WBC RBC Hgb Hct MCV MCH MCHC RDW Plt Count MPV Neut % (Auto) Lymph % (Auto) [place] % (Auto) Eos % (Auto) Baso % (Auto) Neut # (Auto) Lymph # (Auto) [place] # (Auto) Eos # (Auto) Baso # (Auto) Neutrophils % (Manual) Lymphocytes % (Manual) Monocytes % (Manual) Platelet Estimate PT INR APTT pCO2 pO2 HCO3 ABG pH ABG Total CO2 ABG O2 Saturation ABG O2 Content ABG Base Excess ABG Hemoglobin ABG Carboxyhemoglobin POC ABG HHb (Measured) ABG Methemoglobin ABG O2 Capacity Scout Test A-a O2 Difference Hgb O2 Saturation Vent Mode FiO2 Sodium 141 Potassium 5.0 Chloride 100 Carbon Dioxide 31 H Anion Gap 15 BUN 50 H Creatinine 1.2 Est GFR ( Amer) > 60 Est GFR (Non-Af Amer) 59 POC Glucose (mg/dL) 121 H 93 Random Glucose 120 H Calcium 9.5 Phosphorus Magnesium Total Bilirubin 0.7 AST 98 H D ALT 44 Alkaline Phosphatase 54 Troponin I NT-Pro-B Natriuret Pep Total Protein 6.6 Albumin 3.8 Globulin 2.8 Albumin/Globulin Ratio 1.3 Fluid Source Fluid Appearance Fluid WBC Fluid RBC Fluid Tot Cell Count Fluid Neutrophils Fluid Lymphocytes Fld Monocyte/Macrophag Fluid Comment Ur L.pneumophila Ag Mycoplasma pneumon IgM Blood Type Antibody Screen Crossmatch BBK History Checked 10/09/17 10/09/17 10/09/17 16:20 18:00 21:29 WBC RBC Hgb Hct MCV MCH MCHC RDW Plt Count MPV Neut % (Auto) Lymph % (Auto) [place] % (Auto) Eos % (Auto) Baso % (Auto) Neut # (Auto) Lymph # (Auto) [place] # (Auto) Eos # (Auto) Baso # (Auto) Neutrophils % (Manual) Lymphocytes % (Manual) Monocytes % (Manual) Platelet Estimate PT INR APTT pCO2 pO2 HCO3 ABG pH ABG Total CO2 ABG O2 Saturation ABG O2 Content ABG Base Excess ABG Hemoglobin ABG Carboxyhemoglobin POC ABG HHb (Measured) ABG Methemoglobin ABG O2 Capacity Scout Test A-a O2 Difference Hgb O2 Saturation Vent Mode FiO2 Sodium Potassium Chloride Carbon Dioxide Anion Gap BUN Creatinine Est GFR ( Amer) Est GFR (Non-Af Amer) POC Glucose (mg/dL) 102 155 H Random Glucose Calcium Phosphorus Magnesium Total Bilirubin AST ALT Alkaline Phosphatase Troponin I NT-Pro-B Natriuret Pep Total Protein Albumin Globulin Albumin/Globulin Ratio Fluid Source Fluid Appearance Fluid WBC Fluid RBC Fluid Tot Cell Count Fluid Neutrophils Fluid Lymphocytes Fld Monocyte/Macrophag Fluid Comment Ur L.pneumophila Ag Mycoplasma pneumon IgM Negative Blood Type Antibody Screen Crossmatch BBK History Checked 10/09/17 10/10/17 10/10/17 23:00 04:40 04:40 WBC 10.0 RBC 3.87 L Hgb 12.4 Hct 36.0 MCV 92.9 MCH 32.1 H MCHC 34.6 RDW 13.9 Plt Count 226 MPV 7.3 Neut % (Auto) 67.5 Lymph % (Auto) 20.6 [place] % (Auto) 9.7 Eos % (Auto) 1.9 Baso % (Auto) 0.3 Neut # (Auto) 6.7 Lymph # (Auto) 2.1 [place] # (Auto) 1.0 H Eos # (Auto) 0.2 Baso # (Auto) 0.0 Neutrophils % (Manual) Lymphocytes % (Manual) Monocytes % (Manual) Platelet Estimate PT INR APTT pCO2 pO2 HCO3 ABG pH ABG Total CO2 ABG O2 Saturation ABG O2 Content ABG Base Excess ABG Hemoglobin ABG Carboxyhemoglobin POC ABG HHb (Measured) ABG Methemoglobin ABG O2 Capacity Scout Test A-a O2 Difference Hgb O2 Saturation Vent Mode FiO2 Sodium 140 Potassium 4.3 Chloride 102 Carbon Dioxide 33 H Anion Gap 9 L BUN 48 H Creatinine 1.0 Est GFR ( Amer) > 60 Est GFR (Non-Af Amer) > 60 POC Glucose (mg/dL) Random Glucose 98 Calcium 8.8 Phosphorus Magnesium Total Bilirubin 0.9 AST 97 H ALT 63 Alkaline Phosphatase 52 Troponin I NT-Pro-B Natriuret Pep Total Protein 5.9 L Albumin 3.4 L Globulin 2.5 Albumin/Globulin Ratio 1.4 Fluid Source Fluid Appearance Fluid WBC Fluid RBC Fluid Tot Cell Count Fluid Neutrophils Fluid Lymphocytes Fld Monocyte/Macrophag Fluid Comment Ur L.pneumophila Ag Negative Mycoplasma pneumon IgM Blood Type Antibody Screen Crossmatch BBK History Checked 10/10/17 10/10/17 10/10/17 06:45 11:53 14:30 WBC RBC Hgb Hct MCV MCH MCHC RDW Plt Count MPV Neut % (Auto) Lymph % (Auto) [place] % (Auto) Eos % (Auto) Baso % (Auto) Neut # (Auto) Lymph # (Auto) [place] # (Auto) Eos # (Auto) Baso # (Auto) Neutrophils % (Manual) Lymphocytes % (Manual) Monocytes % (Manual) Platelet Estimate PT INR APTT pCO2 pO2 HCO3 ABG pH ABG Total CO2 ABG O2 Saturation ABG O2 Content ABG Base Excess ABG Hemoglobin ABG Carboxyhemoglobin POC ABG HHb (Measured) ABG Methemoglobin ABG O2 Capacity Scout Test A-a O2 Difference Hgb O2 Saturation Vent Mode FiO2 Sodium Potassium Chloride Carbon Dioxide Anion Gap BUN Creatinine Est GFR ( Amer) Est GFR (Non-Af Amer) POC Glucose (mg/dL) 159 H 167 H Random Glucose Calcium Phosphorus Magnesium Total Bilirubin AST ALT Alkaline Phosphatase Troponin I NT-Pro-B Natriuret Pep Total Protein Albumin Globulin Albumin/Globulin Ratio Fluid Source Pleural Fluid Appearance Bloody Fluid WBC 465.0 H [place] [address].0 H Fluid Tot Cell Count 100 H Fluid Neutrophils 89.0 H Fluid Lymphocytes 5.0 H Fld Monocyte/Macrophag 6 H Fluid Comment Turbid Ur L.pneumophila Ag Mycoplasma pneumon IgM Blood Type Antibody Screen Crossmatch BBK History Checked Microbiology 10/07/17 16:35 Blood-Venous Blood Culture - Preliminary Gram Positive Cocci 10/07/17 16:35 Blood-Venous Gram Stain - Final 10/09/17 15:00 Other: Please Indicate Gram Stain - Final 10/09/17 15:00 Other: Please Indicate Gram Stain - Final 10/07/17 16:35 Blood-Venous Blood Culture - Preliminary NO GROWTH AFTER 48 HOURS Assessment and Plan (1) Pneumothorax Status: Acute (2) COPD exacerbation Status: Acute (3) Pulmonary nodules/lesions, multiple Status: Chronic (4) Leukocytosis Status: Resolved (5) Pulmonary emphysema Status: Chronic - Assessment and Plan (Free Text) Assessment: A/P- 76 year old male with multiple medical conditions including COPD, A.Fib, DM II s /p lung biopsy later developed pneumothorax s/p timothy tuube 2 days ago , ont not improved and had developed left sided chest subcutaneous emphysema s/p 2 chest tubes today. afebrile leukocytosis has resolved today. blood cx from 10/07 - one out of 2 bottles reported today GPC (anerobic bottle only). OR cx- perlim pending Plan- the 1 out of 2 blood cx reported after 3 days and only on anaerobic bottle is most likely a contaminant. however since pt. has had multiple procedures advise to start vanco pending repeat blood cx and ID and sens of the GPC. check TTE r/o veg. advise to continue with broad spectrum meropenm abx for nosocoial coverage pending further results. day #2. advise to f/u lung biopsy result from [place] as well. await results of mycoplasma and legionella as well.. All labs and imaging reviewed. case d/w patient and his and all their questions answered. ICu time 45 min.
--- NOTE | 2017-10-10 10:46 | CP.PCM.PN ---
Subjective - Date & Time of Evaluation Date of Evaluation: 10/10/17 Time of Evaluation: 07:30 - Subjective Subjective: Patient seen and examined at bedside. AAO x 3. Reports SOB has improved, has 100 % O2 saturation on 2L nasal cannula. Pain from chest tube insertion site controlled with medication. Objective - Vital Signs/Intake and Output Vital Signs (last 24 hours): Temp Pulse Resp BP Pulse Ox 97.5 F L 97 H 17 130/64 100 10/10/17 08:00 10/10/17 10:00 10/10/17 10:00 10/10/17 10:00 10/10/17 10:00 Intake and Output: 10/10/17 10/10/17 06:59 18:59 Intake Total 290 270 Output Total 540 Balance -250 270 - Medications Medications: Current Medications Albuterol/Ipratropium (Duoneb 3 Mg/0.5 Mg (3 Ml) Ud) 3 ml INH RQID [facility] Last Admin: 10/10/17 07:56 Dose: 3 ml Atorvastatin Calcium (Lipitor) 40 mg PO DAILY@2100 [facility] Last Admin: 10/09/17 21:30 Dose: 40 mg Dextrose (Dextrose 50% Inj) 0 ml IV STAT PRN; Protocol PRN Reason: Hypoglycemia Protocol Dextrose (Glutose 15) 0 gm PO ONCE PRN; Protocol PRN Reason: Hypoglycemia Protocol Famotidine (Pepcid) 20 mg PO DAILY [facility] Last Admin: 10/10/17 08:59 Dose: 20 mg Finasteride (Proscar) 5 mg PO DAILY [facility] Last Admin: 10/10/17 09:00 Dose: 5 mg Gabapentin (Neurontin) 300 mg PO [facility] Last Admin: 10/09/17 21:30 Dose: 300 mg Glucagon (Glucagen Diagnostic Kit) 0 mg IM STAT PRN; Protocol PRN Reason: Hypoglycemia Protocol Hydrochlorothiazide (Microzide) 12.5 mg PO DAILY [facility] Last Admin: 10/08/17 14:04 Dose: Not Given Meropenem 1 gm/ Sodium (Chloride) 100 mls @ 100 mls/hr IVPB Q12 ULISES PRN Reason: Protocol Last Admin: 10/10/17 09:02 Dose: 100 mls/hr Insulin Detemir (Levemir) 10 units SC [facility] Last Admin: 10/09/17 21:38 Dose: 10 units Levalbuterol HCl (Xopenex) 0.63 mg INH RQ4 PRN PRN Reason: Shortness of Breath Last Admin: 10/08/17 13:00 Dose: 0.63 mg Losartan Potassium (Cozaar) 50 mg PO DAILY [facility] Last Admin: 10/10/17 09:03 Dose: 50 mg Morphine Sulfate (Morphine) 2 mg IVP Q4 PRN PRN Reason: Pain, moderate (4-7) Ondansetron HCl (Zofran Inj) 4 mg IVP Q6 PRN PRN Reason: Nausea/Vomiting Oxycodone HCl (Oxycodone Immediate Release Tab) 5 mg PO Q6 PRN PRN Reason: Pain, Mild (1-3) Last Admin: 10/10/17 08:43 Dose: 5 mg - Labs Labs: 10/10/17 04:40 10/10/17 04:40 PT 13.3 Seconds (9.8-13.1) H 10/07/17 16:35 INR 1.2 10/07/17 16:35 APTT 34.1 Seconds (25.6-37.1) 10/07/17 16:35 - Constitutional Appears: No Acute Distress - Head Exam Head Exam: ATRAUMATIC, NORMOCEPHALIC - Eye Exam Eye Exam: EOMI - ENT Exam ENT Exam: Mucous Membranes Moist - Neck Exam Neck Exam: Full ROM - Respiratory Exam Respiratory Exam: Decreased Breath Sounds (bilaterally L>R) Additional comments: left upper chest: minimal palpable subcutaneous emphysema; anterior left chest tube in place: chest vac with 20mL serosanguineous output; posterior left chest tube in place: chest vac with 140mL serosanguineous output - Cardiovascular Exam Cardiovascular Exam: REGULAR RHYTHM. absent: JVD - GI/Abdominal Exam GI & Abdominal Exam: Soft. absent: Tenderness - Extremities Exam Extremities Exam: Full ROM. absent: Calf Tenderness, Pedal Edema - Neurological Exam Neurological Exam: Alert, Awake, CN II-XII Intact, Oriented x3 - Psychiatric Exam Psychiatric exam: Normal Affect, Normal Mood - Skin Skin Exam: Dry, Normal Color, Warm Assessment and Plan - Assessment and Plan (Free Text) Assessment: 76 yr old M admitted for left pneumothorax which developed s/p lung biopsy, now POD # 3 s/p anterior left chest tube placement and s/p POD # 1 s/p posterior left chest tube placement with PMHx of HTN, COPD, DM2, atrial fibrillation. Left lung Pneumothorax -improving -s/p POD #3 left anterior chest tube placement -s/p POD # 1 s/p left posterior chest tube placement -s/p [place] [facility] [place] -10/07/17: CT Chest: Left lung Pneumothorax, 40% lung collapsed -10/10/17: CT chest: no significant pneumothorax following placement of second chest tube, improved aeration and expansion -Pulmonology Consult appreciated: Dr. Hameed, will follow recommendations -Thoracic Surgery Consult, Dr. Justice: daily CXR, repeat CT chest monday10/16/17, clamp tubes x 24 hrs, consider discontinue chest tubes monday10/17/17 -Continue high flow O2 supplementation via nasal cannula, monitor respiratory status -ID consult appreciated: Dr. Luna: f/u chest vac fluid sent for cell count/ cultures, start Meropenem 1 gm IV Q12-day # 2 today -Mycoplasma pneumo Igm and Legionella Ur Ag negative Atrial Fibrillation -Chronic, asymptomatic -Cardiology consult appreciated: Dr. Last : stable from cardiac point of view -Coumadin held per Dr. Last, latest INR 10/07/17 1.2 -was previously on digoxin, but this was d/c by Dr. Last in May due to detection of brief pauses EKG -no beta blockers as patient has limited respiratory reserve -Will start cardizem 30 mg PO Q6 if HR persists>100, hold for HR <60 and systolic BP <110 COPD -severe, chronic, Controlled -Pulmonology consult appreciated: Dr. Hameed -continue with Duonebs INH RQID ULISES, Xopenex INH RQ4 PRN -hold Spiriva 18 mcg INH QD, hold Advair Diskus 500/50 1 puff IH Q12: per pulmonology -hold Ventolin HFA 2 puff IH Q6 PRN -monitor respiratory status Respiratory Acidosis with elevated Lactate -resolved -Possibly due to Pneumothorax vs chronic conditions -On high flow O2 per pulm Elevated ProBNP and Troponin -serial troponins trending down -last echo in May showed EF 40-40%. However, per Dr. Last, patient has preserved left ventricular systolic function and elevated troponins are likely 2 /2 tachycardia induced myocyte injury -EKG findings likely 2/2 pneumothorax shifting mediastinum -plan to repeat echocardiogram at later date and once tachycardia has resolved Left Lung Nodule, S/p Lung Biopsy on 10/04/17 at [facility] -Results pending -will contact [facility] for results Diabetes Mellitus type 2 -chronic, controlled -Last HBA1C: 7.7 on 05/2017 -continue with home medications: Levemir 10 SC QHS, Repaglinide 2mg TID -Hypoglycemic treatment protocol in place -Renzo LAM -Diet: heart healthy, low carbohydrate Hypertension -chronic, uncontrolled -continue home medication: Losartan 50 mg PO QD -HCTZ held, Cardizem was administered yesterday and may need PRN today -monitor BP HLD -chronic, controlled -continue home medication: atorvastatin 40mg DVT Prophylaxis -Lovenox 40 mg SC QD, SCDs -Discussed risks and benefits w/ ip counsel Full Code -Next of kin: , [place] [phone]
--- NOTE | 2017-10-10 11:13 | CT ---
Date of service: 10/10/2017 PROCEDURE: CT Chest without contrast HISTORY: post op insertion of CT x 2 - persistent L pneumo COMPARISON: October 09, 2017. CT thorax. 01/24/2013 CT thorax TECHNIQUE: Contiguous axial images were obtained through the chest without intravenous contrast enhancement. Sagittal and coronal reconstructions were performed. Radiation dose (DLP): 342.92 mGy-cm. This CT exam was performed using one or more of the following dose reduction techniques: Automated exposure control, adjustment of the mA and/or kV according to patient size, and/or use of iterative reconstruction technique. FINDINGS: LUNGS: Bullous changes, areas of parenchymal scarring are overall progressive compared to the remote study 01/24/2013. The right lung however is re-expanded following placement of a 2nd chest tube in the left pleural space. Dependent atelectasis at the right base. MEDIASTINUM: Unremarkable thoracic aorta. No aneurysm. Normal sized heart. Main pulmonary artery unremarkable. No vascular congestion. No lymphadenopathy. PLEURA: Trace residual pneumothorax not felt to be clinically consequential. Small right pleural effusion. BONES: No fracture. No destructive lesion. UPPER ABDOMEN: Grossly unremarkable. Vicarious excretion of contrast in the gallbladder. OTHER FINDINGS: Approximately stable, extensive subcutaneous emphysema IMPRESSION: No significant pneumothorax following placement of 2nd chest tube in the right pleural space. Improved aeration/ re-expansion of the left lung. Underlying emphysematous changes, multiple areas of scarring and spiculation. These are progressive compared to the prior remote CT 01/24/2013.
--- NOTE | 2017-10-10 13:08 | CP.PCM.PN ---
Subjective - Date & Time of Evaluation Date of Evaluation: 10/10/17 Time of Evaluation: 13:01 - Subjective Subjective: Pt s/e No c/o. VSS. RR-17 wbc-10K chest tubes-30/140/serosanguinous -No air leak. ct of lchest this am: No pneumothorax, some basilar effusion. Tubes-in good position. a/p: 1. Satisfactory POD#1. 2. Daily cxr. [address] Next Monday. 5. Clamp [id number] hours. 6. D/C tubes on Monday. Objective - Vital Signs/Intake and Output Vital Signs (last 24 hours): Temp Pulse Resp BP Pulse Ox 98.4 F 94 H 12 117/66 100 10/10/17 12:00 10/10/17 12:00 10/10/17 12:00 10/10/17 12:00 10/10/17 12:00 Intake and Output: 10/10/17 10/10/17 06:59 18:59 Intake Total 290 270 Output Total 540 200 Balance -250 70 - Medications Medications: Current Medications Albuterol/Ipratropium (Duoneb 3 Mg/0.5 Mg (3 Ml) Ud) 3 ml INH RQID [facility] Last Admin: 10/10/17 11:41 Dose: 3 ml Atorvastatin Calcium (Lipitor) 40 mg PO DAILY@2100 [facility] Last Admin: 10/09/17 21:30 Dose: 40 mg Dextrose (Dextrose 50% Inj) 0 ml IV STAT PRN; Protocol PRN Reason: Hypoglycemia Protocol Dextrose (Glutose 15) 0 gm PO ONCE PRN; Protocol PRN Reason: Hypoglycemia Protocol Famotidine (Pepcid) 20 mg PO DAILY [facility] Last Admin: 10/10/17 08:59 Dose: 20 mg Finasteride (Proscar) 5 mg PO DAILY [facility] Last Admin: 10/10/17 09:00 Dose: 5 mg Gabapentin (Neurontin) 300 mg PO HS [facility] Last Admin: 10/09/17 21:30 Dose: 300 mg Glucagon (Glucagen Diagnostic Kit) 0 mg IM STAT PRN; Protocol PRN Reason: Hypoglycemia Protocol Hydrochlorothiazide (Microzide) 12.5 mg PO DAILY [facility] Last Admin: 10/08/17 14:04 Dose: Not Given Meropenem 1 gm/ Sodium (Chloride) 100 mls @ 100 mls/hr IVPB Q12 [facility] PRN Reason: Protocol Last Admin: 10/10/17 09:02 Dose: 100 mls/hr Insulin Detemir (Levemir) 10 units SC HS [facility] Last Admin: 10/09/17 21:38 Dose: 10 units Levalbuterol HCl (Xopenex) 0.63 mg INH RQ4 PRN PRN Reason: Shortness of Breath Last Admin: 10/08/17 13:00 Dose: 0.63 mg Losartan Potassium (Cozaar) 50 mg PO DAILY [facility] Last Admin: 10/10/17 09:03 Dose: 50 mg Morphine Sulfate (Morphine) 2 mg IVP Q4 PRN PRN Reason: Pain, moderate (4-7) Ondansetron HCl (Zofran Inj) 4 mg IVP Q6 PRN PRN Reason: Nausea/Vomiting Oxycodone HCl (Oxycodone Immediate Release Tab) 5 mg PO Q6 PRN PRN Reason: Pain, Mild (1-3) Last Admin: 10/10/17 08:43 Dose: 5 mg - Labs Labs: 10/10/17 04:40 10/10/17 04:40 PT 13.3 Seconds (9.8-13.1) H 10/07/17 16:35 INR 1.2 10/07/17 16:35 APTT 34.1 Seconds (25.6-37.1) 10/07/17 16:35
--- NOTE | 2017-10-10 14:28 | PQF ---
pt does not have pneumonia PROVIDER RESPONSE TEXT: Pneumonia still in the differential, will be ruled in or out pending chest fluid cultures. 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 was just at [facility] and had twice chest tube placement to cover for nosocomial pathogens The patient's Clinical Indicators include: xxx Query created by: Ioana Valle on 10/10/2017 11:01 AM Electronically signed by: Miranda Tomas 10/10/2017 2:25 PM TARSHA
[2017-10-10 14:41] LABS: BODY FLUID TYPE PLEURAL
--- NOTE | 2017-10-10 15:02 | CP.PCM.PN ---
Subjective - Date & Time of Evaluation Date of Evaluation: 10/10/17 Time of Evaluation: 14:00 - Subjective Subjective: Sitting OOB, pain well controlled HR 100 BPM a Fib BP 136/70 mm Hg JVP flat, no oedema over feet BUN/ Creatinin coming down with control of heart rate Stable from cardiac point of view Objective - Vital Signs/Intake and Output Vital Signs (last 24 hours): Temp Pulse Resp BP Pulse Ox 98.4 F 112 H 16 104/58 L 100 10/10/17 12:00 10/10/17 14:00 10/10/17 14:00 10/10/17 14:00 10/10/17 14:00 Intake and Output: 10/10/17 10/10/17 06:59 18:59 Intake Total 290 270 Output Total 540 300 Balance -250 -30 - Medications Medications: Current Medications Albuterol/Ipratropium (Duoneb 3 Mg/0.5 Mg (3 Ml) Ud) 3 ml INH RQID [facility] Last Admin: 10/10/17 11:41 Dose: 3 ml Atorvastatin Calcium (Lipitor) 40 mg PO DAILY@2100 [facility] Last Admin: 10/09/17 21:30 Dose: 40 mg Dextrose (Dextrose 50% Inj) 0 ml IV STAT PRN; Protocol PRN Reason: Hypoglycemia Protocol Dextrose (Glutose 15) 0 gm PO ONCE PRN; Protocol PRN Reason: Hypoglycemia Protocol Famotidine (Pepcid) 20 mg PO DAILY [facility] Last Admin: 10/10/17 08:59 Dose: 20 mg Finasteride (Proscar) 5 mg PO DAILY [facility] Last Admin: 10/10/17 09:00 Dose: 5 mg Gabapentin (Neurontin) 300 mg PO [facility] Last Admin: 10/09/17 21:30 Dose: 300 mg Glucagon (Glucagen Diagnostic Kit) 0 mg IM STAT PRN; Protocol PRN Reason: Hypoglycemia Protocol Hydrochlorothiazide (Microzide) 12.5 mg PO DAILY [facility] Last Admin: 10/08/17 14:04 Dose: Not Given Meropenem 1 gm/ Sodium (Chloride) 100 mls @ 100 mls/hr IVPB Q12 [facility] PRN Reason: Protocol Last Admin: 10/10/17 09:02 Dose: 100 mls/hr Insulin Detemir (Levemir) 10 units SC [facility] Last Admin: 10/09/17 21:38 Dose: 10 units Levalbuterol HCl (Xopenex) 0.63 mg INH RQ4 PRN PRN Reason: Shortness of Breath Last Admin: 10/08/17 13:00 Dose: 0.63 mg Losartan Potassium (Cozaar) 50 mg PO DAILY [facility] Last Admin: 10/10/17 09:03 Dose: 50 mg Morphine Sulfate (Morphine) 2 mg IVP Q4 PRN PRN Reason: Pain, moderate (4-7) Ondansetron HCl (Zofran Inj) 4 mg IVP Q6 PRN PRN Reason: Nausea/Vomiting Oxycodone HCl (Oxycodone Immediate Release Tab) 5 mg PO Q6 PRN PRN Reason: Pain, Mild (1-3) Last Admin: 10/10/17 13:28 Dose: 5 mg - Labs Labs: 10/10/17 04:40 10/10/17 04:40 PT 13.3 Seconds (9.8-13.1) H 10/07/17 16:35 INR 1.2 10/07/17 16:35 APTT 34.1 Seconds (25.6-37.1) 10/07/17 16:35
--- NOTE | 2017-10-10 15:50 | CP.CCUPN ---
<Sultan Yudith - Last Filed: 10/10/17 16:00> CCU Subjective - Physician Review Subjective (Free Text): 10/10/17 15:46 Patient seen and examined at bedside during rounds today. Pt is s/p left anterior and posterior chest tube placement. Pt reports dyspnea has improved and breathing comfortably with NC oxygen. Tolerating PO and voiding. CCU Objective - Vital Signs / Intake & Output Vital Signs (Last 4 hours): Vital Signs Temp Pulse Resp BP Pulse Ox 10/10/17 14:00 112 H 16 104/58 L 100 10/10/17 12:00 98.4 F 94 H 18 117/66 100 10/10/17 11:49 15 Intake and Output (Last 8hrs): Intake & Output 10/10/17 10/10/17 10/10/17 06:59 14:59 22:59 Intake Total 250 270 Output Total 340 300 Balance -90 -30 Intake: Intake, Piggyback 100 Oral 250 170 Output: Chest Tube Drainage 140 Left Anterior Chest 20 Left Posterior Chest 120 Urine 200 300 Urine, Voided 200 300 Other: # Voids Urine, Voided 1 - Physical Exam Head: Positive for: Atraumatic, Normocephalic Pupils: Positive for: PERRL Extroacular Muscles: Positive for: EOMI Conjunctiva: Positive for: Normal. Negative for: Icteric Mouth: Positive for: Moist Mucous Membranes Neck: Positive for: Normal Range of Motion, Trachea Midline Respiratory/Chest: Positive for: Good Air Exchange, Wheezes (Intermitent), Decreased Breath Sounds, Other (left anterior and posterior chest tube in place , draining serosanguineous fluids.). Negative for: Respiratory Distress, Accessory Muscle Use, Rales Cardiovascular: Positive for: Irregular Rhythm, Peripheal Pulses Present. Negative for: Murmurs, Normal S1, S2 Abdomen: Positive for: Normal Bowel Sounds. Negative for: Tenderness, Distention Upper Extremity: Positive for: Normal Inspection. Negative for: Edema Lower Extremity: Positive for: Normal Inspection, NORMAL PULSES. Negative for: Edema, CALF TENDERNESS Neurological: Positive for: Speech Normal, Motor Func Grossly Intact, Normal Sensory Function Skin: Positive for: Warm, Normal Color. Negative for: Rashes Psychiatric: Positive for: Alert, Oriented x 3 - Medications Active Medications: Active Medications Generic Name Dose Route Start Last Admin Trade Name Freq PRN Reason Stop Dose Admin Albuterol/Ipratropium 3 ml 10/08/17 12:00 10/10/17 15:41 Duoneb 3 Mg/0.5 Mg (3 Ml) Ud INH Not Given RQID ULISES Atorvastatin Calcium 40 mg 10/07/17 21:00 10/09/17 21:30 Lipitor PO 40 mg DAILY@2100 ULISES Administration Dextrose 0 ml 10/07/17 19:49 Dextrose 50% Inj IV STAT PRN Hypoglycemia Protocol Protocol Dextrose 0 gm 10/07/17 19:49 Glutose 15 PO ONCE PRN Hypoglycemia Protocol Protocol Famotidine 20 mg 10/08/17 13:15 10/10/17 08:59 Pepcid PO 20 mg DAILY ULISES Administration Finasteride 5 mg 10/08/17 09:00 10/10/17 09:00 Proscar PO 5 mg DAILY ULISES Administration Gabapentin 300 mg 10/07/17 22:00 10/09/17 21:30 Neurontin PO 300 mg HS ULISES Administration Glucagon 0 mg 10/07/17 19:49 Glucagen Diagnostic Kit IM STAT PRN Hypoglycemia Protocol Protocol Hydrochlorothiazide 12.5 mg 10/08/17 09:00 10/08/17 14:04 Microzide PO Not Given DAILY ULISES Meropenem 1 gm/ Sodium 100 mls @ 100 mls/hr 10/09/17 21:00 10/10/17 09:02 Chloride IVPB 100 mls/hr Q12 ULISES Administration Protocol Insulin Detemir 10 units 10/07/17 22:00 10/09/17 21:38 Levemir SC 10 units HS ULISES Administration Levalbuterol HCl 0.63 mg 10/08/17 09:07 10/08/17 13:00 Xopenex INH 0.63 mg RQ4 PRN Administration Shortness of Breath Losartan Potassium 50 mg 10/08/17 09:00 10/10/17 09:03 Cozaar PO 50 mg DAILY ULISES Administration Morphine Sulfate 2 mg 10/10/17 09:12 Morphine IVP Q4 PRN Pain, moderate (4-7) Ondansetron HCl 4 mg 10/09/17 15:01 Zofran Inj IVP Q6 PRN Nausea/Vomiting Oxycodone HCl 5 mg 10/09/17 16:27 10/10/17 13:28 Oxycodone Immediate Release Tab PO 5 mg Q6 PRN Administration Pain, Mild (1-3) - Patient Studies Lab Studies: Microbiology Studies 10/07/17 16:35 Blood Culture - Preliminary Blood-Venous Gram Positive Cocci Gram Stain - Final 10/09/17 15:00 Gram Stain - Final Other: Please Indicate 10/09/17 15:00 Gram Stain - Final Other: Please Indicate 10/07/17 16:35 Blood Culture - Preliminary Blood-Venous NO GROWTH AFTER 48 HOURS Lab Studies 10/10/17 10/10/17 10/10/17 Range/Units 14:30 11:53 06:45 WBC (4.8-10.8) K/uL RBC (4.40-5.90) Mil/uL Hgb (12.0-18.0) g/dL Hct (35.0-51.0) % MCV (80.0-94.0) fl MCH (27.0-31.0) pg MCHC (33.0-37.0) g/dL RDW (11.5-14.5) % Plt Count (130-400) K/uL MPV (7.2-11.7) fl Neut % (Auto) (50.0-75.0) % Lymph % (Auto) (20.0-40.0) % Falls % (Auto) (0.0-10.0) % Eos % (Auto) (0.0-4.0) % Baso % (Auto) (0.0-2.0) % Neut # (Auto) (1.8-7.0) K/uL Lymph # (Auto) (1.0-4.3) K/uL Falls # (Auto) (0.0-0.8) K/uL Eos # (Auto) (0.0-0.7) K/uL Baso # (Auto) (0.0-0.2) K/uL Sodium (132-148) mmol/l Potassium (3.6-5.0) MMOL/L Chloride (98-107) mmol/L Carbon Dioxide (22-30) mmol/L Anion Gap (10-20) BUN (9-20) mg/dl Creatinine (0.8-1.5) mg/dl Est GFR ( Amer) Est GFR (Non-Af Amer) POC Glucose (mg/dL) 167 H 159 H (65-110) mg/dL Random Glucose (75-110) mg/dL Calcium (8.4-10.2) mg/dL Total Bilirubin (0.2-1.3) mg/dl AST (17-59) U/L ALT (21-72) U/L Alkaline Phosphatase (38-126) U/L Total Protein (6.3-8.2) G/DL Albumin (3.5-5.0) g/dL Globulin (2.2-3.9) gm/dL Albumin/Globulin Ratio (1.0-2.1) Fluid Source Pleural Ur L.pneumophila Ag (NEGATIVE) Mycoplasma pneumon IgM (NEGATIVE) 10/10/17 10/10/17 10/09/17 Range/Units 04:40 04:40 23:00 WBC 10.0 (4.8-10.8) K/uL RBC 3.87 L (4.40-5.90) Mil/uL Hgb 12.4 (12.0-18.0) g/dL Hct 36.0 (35.0-51.0) % MCV 92.9 (80.0-94.0) fl MCH 32.1 H (27.0-31.0) pg MCHC 34.6 (33.0-37.0) g/dL RDW 13.9 (11.5-14.5) % Plt Count 226 (130-400) K/uL MPV 7.3 (7.2-11.7) fl Neut % (Auto) 67.5 (50.0-75.0) % Lymph % (Auto) 20.6 (20.0-40.0) % Falls % (Auto) 9.7 (0.0-10.0) % Eos % (Auto) 1.9 (0.0-4.0) % Baso % (Auto) 0.3 (0.0-2.0) % Neut # (Auto) 6.7 (1.8-7.0) K/uL Lymph # (Auto) 2.1 (1.0-4.3) K/uL Falls # (Auto) 1.0 H (0.0-0.8) K/uL Eos # (Auto) 0.2 (0.0-0.7) K/uL Baso # (Auto) 0.0 (0.0-0.2) K/uL Sodium 140 (132-148) mmol/l Potassium 4.3 (3.6-5.0) MMOL/L Chloride 102 (98-107) mmol/L Carbon Dioxide 33 H (22-30) mmol/L Anion Gap 9 L (10-20) BUN 48 H (9-20) mg/dl Creatinine 1.0 (0.8-1.5) mg/dl Est GFR ( Amer) > 60 Est GFR (Non-Af Amer) > 60 POC Glucose (mg/dL) (65-110) mg/dL Random Glucose 98 (75-110) mg/dL Calcium 8.8 (8.4-10.2) mg/dL Total Bilirubin 0.9 (0.2-1.3) mg/dl AST 97 H (17-59) U/L ALT 63 (21-72) U/L Alkaline Phosphatase 52 (38-126) U/L Total Protein 5.9 L (6.3-8.2) G/DL Albumin 3.4 L (3.5-5.0) g/dL Globulin 2.5 (2.2-3.9) gm/dL Albumin/Globulin Ratio 1.4 (1.0-2.1) Fluid Source Ur L.pneumophila Ag Negative (NEGATIVE) Mycoplasma pneumon IgM (NEGATIVE) 10/09/17 10/09/17 10/09/17 Range/Units 21:29 18:00 16:20 WBC (4.8-10.8) K/uL RBC (4.40-5.90) Mil/uL Hgb (12.0-18.0) g/dL Hct (35.0-51.0) % MCV (80.0-94.0) fl MCH (27.0-31.0) pg MCHC (33.0-37.0) g/dL RDW (11.5-14.5) % Plt Count (130-400) K/uL MPV (7.2-11.7) fl Neut % (Auto) (50.0-75.0) % Lymph % (Auto) (20.0-40.0) % Falls % (Auto) (0.0-10.0) % Eos % (Auto) (0.0-4.0) % Baso % (Auto) (0.0-2.0) % Neut # (Auto) (1.8-7.0) K/uL Lymph # (Auto) (1.0-4.3) K/uL Falls # (Auto) (0.0-0.8) K/uL Eos # (Auto) (0.0-0.7) K/uL Baso # (Auto) (0.0-0.2) K/uL Sodium (132-148) mmol/l Potassium (3.6-5.0) MMOL/L Chloride (98-107) mmol/L Carbon Dioxide (22-30) mmol/L Anion Gap (10-20) BUN (9-20) mg/dl Creatinine (0.8-1.5) mg/dl Est GFR ( Amer) Est GFR (Non-Af Amer) POC Glucose (mg/dL) 155 H 102 (65-110) mg/dL Random Glucose (75-110) mg/dL Calcium (8.4-10.2) mg/dL Total Bilirubin (0.2-1.3) mg/dl AST (17-59) U/L ALT (21-72) U/L Alkaline Phosphatase (38-126) U/L Total Protein (6.3-8.2) G/DL Albumin (3.5-5.0) g/dL Globulin (2.2-3.9) gm/dL Albumin/Globulin Ratio (1.0-2.1) Fluid Source Ur L.pneumophila Ag (NEGATIVE) Mycoplasma pneumon IgM Negative (NEGATIVE) Laboratory Results - last 24 hr 10/09/17 10/09/17 10/09/17 16:20 18:00 21:29 WBC RBC Hgb Hct MCV MCH MCHC RDW Plt Count MPV Neut % (Auto) Lymph % (Auto) Falls % (Auto) Eos % (Auto) Baso % (Auto) Neut # (Auto) Lymph # (Auto) Falls # (Auto) Eos # (Auto) Baso # (Auto) Sodium Potassium Chloride Carbon Dioxide Anion Gap BUN Creatinine Est GFR ( Amer) Est GFR (Non-Af Amer) POC Glucose (mg/dL) 102 155 H Random Glucose Calcium Total Bilirubin AST ALT Alkaline Phosphatase Total Protein Albumin Globulin Albumin/Globulin Ratio Fluid Source Ur L.pneumophila Ag Mycoplasma pneumon IgM Negative 10/09/17 10/10/17 10/10/17 23:00 04:40 04:40 WBC 10.0 RBC 3.87 L Hgb 12.4 Hct 36.0 MCV 92.9 MCH 32.1 H MCHC 34.6 RDW 13.9 Plt Count 226 MPV 7.3 Neut % (Auto) 67.5 Lymph % (Auto) 20.6 Falls % (Auto) 9.7 Eos % (Auto) 1.9 Baso % (Auto) 0.3 Neut # (Auto) 6.7 Lymph # (Auto) 2.1 Falls # (Auto) 1.0 H Eos # (Auto) 0.2 Baso # (Auto) 0.0 Sodium 140 Potassium 4.3 Chloride 102 Carbon Dioxide 33 H Anion Gap 9 L BUN 48 H Creatinine 1.0 Est GFR ( Amer) > 60 Est GFR (Non-Af Amer) > 60 POC Glucose (mg/dL) Random Glucose 98 Calcium 8.8 Total Bilirubin 0.9 AST 97 H ALT 63 Alkaline Phosphatase 52 Total Protein 5.9 L Albumin 3.4 L Globulin 2.5 Albumin/Globulin Ratio 1.4 Fluid Source Ur L.pneumophila Ag Negative Mycoplasma pneumon IgM 10/10/17 10/10/17 10/10/17 06:45 11:53 14:30 WBC RBC Hgb Hct MCV MCH MCHC RDW Plt Count MPV Neut % (Auto) Lymph % (Auto) Falls % (Auto) Eos % (Auto) Baso % (Auto) Neut # (Auto) Lymph # (Auto) Falls # (Auto) Eos # (Auto) Baso # (Auto) Sodium Potassium Chloride Carbon Dioxide Anion Gap BUN Creatinine Est GFR ( Amer) Est GFR (Non-Af Amer) POC Glucose (mg/dL) 159 H 167 H Random Glucose Calcium Total Bilirubin AST ALT Alkaline Phosphatase Total Protein Albumin Globulin Albumin/Globulin Ratio Fluid Source Pleural Ur L.pneumophila Ag Mycoplasma pneumon IgM Fingerstick Blood Sugar Results: 167 Review of Systems - Review of Systems All systems: reviewed and no additional remarkable complaints except Critical Care Progress Note - Nutrition Nutrition: Nutrition Category Date Time Status Heart Healthy Diet [DIET] Diets 10/09/17 Lunch Active Assessment/Plan - Assessment and Plan (Free Text) Assessment: 76 yo male with PMHx of HTN, Hypercholesterolemia, Atrial Fibrillation, COPD, Chronic Kidney Disease and multiple pulmonary nodules S/P HAYDE biopsy on 10/04, developed left sided pneumothorax s/p left anterior chest tube placement on and left posterior chest tube placement on 10/09/17, improved dyspnea with NC oxygen. Pulmonary: -Left sided pneumothorax s/p left anterior and posterior chest tube placement -Draining serosanguineous fluids from both chest tubes (posterior>anterior) -Dyspnea improved, on NC oxygen, saturating well >98% -Chest CT on 10/09/17: No significant pneumothorax following placement of 2nd chest tube. -Chronic obstructive lung disease: continue with current management. -Continue to monitor Cardiovascular: -Dr. Last on board -Atrial fibrillation, stable -Hypertension, controlled now. Continue with losartan 50 mg po daily. Hematology: -Leukocytosis (trending down, wbc 10 this am), f/u CBC Endocrine: -Diabetes mellitus II -Well controlled (HbA1c 7.7 on 05/2017) -Continue with current management GI: No acute issues -Continue with GI prophylaxis ID: -Dr. Luna on board -On meropenem 1 gm IVPB q12 for empiric HAP tx -Blood cx on 10/07/17: gram positive cocci in clusters DVT proph - SCD's GI proph -famotidine 20 mg po daily Code status - full code <Derrell Willis V - Last Filed: 10/10/17 16:35> CCU Subjective - Physician Review Events Since Last Encounter (Free Text): 10/10/17 16:34 patient is seen, examined at bedside. case discussed in am ICU rounds. Agre with plan of care as detailed in resident's note CCU Objective - Vital Signs / Intake & Output Vital Signs (Last 4 hours): Vital Signs Pulse Resp BP Pulse Ox 10/10/17 14:00 112 H 16 104/58 L 100 Intake and Output (Last 8hrs): Intake & Output 10/10/17 10/10/17 10/10/17 06:59 14:59 22:59 Intake Total 250 270 Output Total 340 300 Balance -90 -30 Intake: Intake, Piggyback 100 Oral 250 170 Output: Chest Tube Drainage 140 Left Anterior Chest 20 Left Posterior Chest 120 Urine 200 300 Urine, Voided 200 300 Other: # Voids Urine, Voided 1 - Medications Active Medications: Active Medications Generic Name Dose Route Start Last Admin Trade Name Freq PRN Reason Stop Dose Admin Albuterol/Ipratropium 3 ml 10/08/17 12:00 10/10/17 15:41 Duoneb 3 Mg/0.5 Mg (3 Ml) Ud INH Not Given RQID ULISES Atorvastatin Calcium 40 mg 10/07/17 21:00 10/09/17 21:30 Lipitor PO 40 mg DAILY@2100 ULISES Administration Dextrose 0 ml 10/07/17 19:49 Dextrose 50% Inj IV STAT PRN Hypoglycemia Protocol Protocol Dextrose 0 gm 10/07/17 19:49 Glutose 15 PO ONCE PRN Hypoglycemia Protocol Protocol Enoxaparin Sodium 40 mg 10/10/17 16:15 Lovenox SC DAILY ULISES Protocol Famotidine 20 mg 10/08/17 13:15 10/10/17 08:59 Pepcid PO 20 mg DAILY ULISES Administration Finasteride 5 mg 10/08/17 09:00 10/10/17 09:00 Proscar PO 5 mg DAILY ULISES Administration Gabapentin 300 mg 10/07/17 22:00 10/09/17 21:30 Neurontin PO 300 mg HS ULISES Administration Glucagon 0 mg 10/07/17 19:49 Glucagen Diagnostic Kit IM STAT PRN Hypoglycemia Protocol Protocol Hydrochlorothiazide 12.5 mg 10/08/17 09:00 10/08/17 14:04 Microzide PO Not Given DAILY ULISES Meropenem 1 gm/ Sodium 100 mls @ 100 mls/hr 10/09/17 21:00 10/10/17 09:02 Chloride IVPB 100 mls/hr Q12 ULISES Administration Protocol Insulin Detemir 10 units 10/07/17 22:00 10/09/17 21:38 Levemir SC 10 units HS ULISES Administration Levalbuterol HCl 0.63 mg 10/08/17 09:07 10/08/17 13:00 Xopenex INH 0.63 mg RQ4 PRN Administration Shortness of Breath Losartan Potassium 50 mg 10/08/17 09:00 10/10/17 09:03 Cozaar PO 50 mg DAILY ULISES Administration Morphine Sulfate 2 mg 10/10/17 09:12 Morphine IVP Q4 PRN Pain, moderate (4-7) Ondansetron HCl 4 mg 10/09/17 15:01 Zofran Inj IVP Q6 PRN Nausea/Vomiting Oxycodone HCl 5 mg 10/09/17 16:27 10/10/17 13:28 Oxycodone Immediate Release Tab PO 5 mg Q6 PRN Administration Pain, Mild (1-3) - Patient Studies Lab Studies: Microbiology Studies 10/07/17 16:35 Blood Culture - Preliminary Blood-Venous Gram Positive Cocci Gram Stain - Final 10/09/17 15:00 Gram Stain - Final Other: Please Indicate 10/09/17 15:00 Gram Stain - Final Other: Please Indicate 10/07/17 16:35 Blood Culture - Preliminary Blood-Venous NO GROWTH AFTER 48 HOURS Lab Studies 10/10/17 10/10/17 10/10/17 Range/Units 14:30 11:53 06:45 WBC (4.8-10.8) K/uL RBC (4.40-5.90) Mil/uL Hgb (12.0-18.0) g/dL Hct (35.0-51.0) % MCV (80.0-94.0) fl MCH (27.0-31.0) pg MCHC (33.0-37.0) g/dL RDW (11.5-14.5) % Plt Count (130-400) K/uL MPV (7.2-11.7) fl Neut % (Auto) (50.0-75.0) % Lymph % (Auto) (20.0-40.0) % Falls % (Auto) (0.0-10.0) % Eos % (Auto) (0.0-4.0) % Baso % (Auto) (0.0-2.0) % Neut # (Auto) (1.8-7.0) K/uL Lymph # (Auto) (1.0-4.3) K/uL Falls # (Auto) (0.0-0.8) K/uL Eos # (Auto) (0.0-0.7) K/uL Baso # (Auto) (0.0-0.2) K/uL Sodium (132-148) mmol/l Potassium (3.6-5.0) MMOL/L Chloride (98-107) mmol/L Carbon Dioxide (22-30) mmol/L Anion Gap (10-20) BUN (9-20) mg/dl Creatinine (0.8-1.5) mg/dl Est GFR ( Amer) Est GFR (Non-Af Amer) POC Glucose (mg/dL) 167 H 159 H (65-110) mg/dL Random Glucose (75-110) mg/dL Calcium (8.4-10.2) mg/dL Total Bilirubin (0.2-1.3) mg/dl AST (17-59) U/L ALT (21-72) U/L Alkaline Phosphatase (38-126) U/L Total Protein (6.3-8.2) G/DL Albumin (3.5-5.0) g/dL Globulin (2.2-3.9) gm/dL Albumin/Globulin Ratio (1.0-2.1) Fluid Source Pleural Fluid Appearance Bloody (CLEAR) Fluid WBC 465.0 H (0.0-300.0) /mm3 Fluid RBC 06178.0 H (0.0-0.0) /mm3 Fluid Tot Cell Count 100 H (0-0) Fluid Neutrophils 89.0 H (0-0) % Fluid Lymphocytes 5.0 H (0-0) % Fld Monocyte/Macrophag 6 H (0-0) % Fluid Comment Turbid Ur L.pneumophila Ag (NEGATIVE) Mycoplasma pneumon IgM (NEGATIVE) 10/10/17 10/10/17 10/09/17 Range/Units 04:40 04:40 23:00 WBC 10.0 (4.8-10.8) K/uL RBC 3.87 L (4.40-5.90) Mil/uL Hgb 12.4 (12.0-18.0) g/dL Hct 36.0 (35.0-51.0) % MCV 92.9 (80.0-94.0) fl MCH 32.1 H (27.0-31.0) pg MCHC 34.6 (33.0-37.0) g/dL RDW 13.9 (11.5-14.5) % Plt Count 226 (130-400) K/uL MPV 7.3 (7.2-11.7) fl Neut % (Auto) 67.5 (50.0-75.0) % Lymph % (Auto) 20.6 (20.0-40.0) % Falls % (Auto) 9.7 (0.0-10.0) % Eos % (Auto) 1.9 (0.0-4.0) % Baso % (Auto) 0.3 (0.0-2.0) % Neut # (Auto) 6.7 (1.8-7.0) K/uL Lymph # (Auto) 2.1 (1.0-4.3) K/uL Falls # (Auto) 1.0 H (0.0-0.8) K/uL Eos # (Auto) 0.2 (0.0-0.7) K/uL Baso # (Auto) 0.0 (0.0-0.2) K/uL Sodium 140 (132-148) mmol/l Potassium 4.3 (3.6-5.0) MMOL/L Chloride 102 (98-107) mmol/L Carbon Dioxide 33 H (22-30) mmol/L Anion Gap 9 L (10-20) BUN 48 H (9-20) mg/dl Creatinine 1.0 (0.8-1.5) mg/dl Est GFR ( Amer) > 60 Est GFR (Non-Af Amer) > 60 POC Glucose (mg/dL) (65-110) mg/dL Random Glucose 98 (75-110) mg/dL Calcium 8.8 (8.4-10.2) mg/dL Total Bilirubin 0.9 (0.2-1.3) mg/dl AST 97 H (17-59) U/L ALT 63 (21-72) U/L Alkaline Phosphatase 52 (38-126) U/L Total Protein 5.9 L (6.3-8.2) G/DL Albumin 3.4 L (3.5-5.0) g/dL Globulin 2.5 (2.2-3.9) gm/dL Albumin/Globulin Ratio 1.4 (1.0-2.1) Fluid Source Fluid Appearance (CLEAR) Fluid WBC (0.0-300.0) /mm3 Fluid RBC (0.0-0.0) /mm3 Fluid Tot Cell Count (0-0) Fluid Neutrophils (0-0) % Fluid Lymphocytes (0-0) % Fld Monocyte/Macrophag (0-0) % Fluid Comment Ur L.pneumophila Ag Negative (NEGATIVE) Mycoplasma pneumon IgM (NEGATIVE) 10/09/17 10/09/17 10/09/17 Range/Units 21:29 18:00 16:20 WBC (4.8-10.8) K/uL RBC (4.40-5.90) Mil/uL Hgb (12.0-18.0) g/dL Hct (35.0-51.0) % MCV (80.0-94.0) fl MCH (27.0-31.0) pg MCHC (33.0-37.0) g/dL RDW (11.5-14.5) % Plt Count (130-400) K/uL MPV (7.2-11.7) fl Neut % (Auto) (50.0-75.0) % Lymph % (Auto) (20.0-40.0) % Falls % (Auto) (0.0-10.0) % Eos % (Auto) (0.0-4.0) % Baso % (Auto) (0.0-2.0) % Neut # (Auto) (1.8-7.0) K/uL Lymph # (Auto) (1.0-4.3) K/uL Falls # (Auto) (0.0-0.8) K/uL Eos # (Auto) (0.0-0.7) K/uL Baso # (Auto) (0.0-0.2) K/uL Sodium (132-148) mmol/l Potassium (3.6-5.0) MMOL/L Chloride (98-107) mmol/L Carbon Dioxide (22-30) mmol/L Anion Gap (10-20) BUN (9-20) mg/dl Creatinine (0.8-1.5) mg/dl Est GFR ( Amer) Est GFR (Non-Af Amer) POC Glucose (mg/dL) 155 H 102 (65-110) mg/dL Random Glucose (75-110) mg/dL Calcium (8.4-10.2) mg/dL Total Bilirubin (0.2-1.3) mg/dl AST (17-59) U/L ALT (21-72) U/L Alkaline Phosphatase (38-126) U/L Total Protein (6.3-8.2) G/DL Albumin (3.5-5.0) g/dL Globulin (2.2-3.9) gm/dL Albumin/Globulin Ratio (1.0-2.1) Fluid Source Fluid Appearance (CLEAR) Fluid WBC (0.0-300.0) /mm3 Fluid RBC (0.0-0.0) /mm3 Fluid Tot Cell Count (0-0) Fluid Neutrophils (0-0) % Fluid Lymphocytes (0-0) % Fld Monocyte/Macrophag (0-0) % Fluid Comment Ur L.pneumophila Ag (NEGATIVE) Mycoplasma pneumon IgM Negative (NEGATIVE) Laboratory Results - last 24 hr 10/09/17 10/09/17 10/09/17 16:20 18:00 21:29 WBC RBC Hgb Hct MCV MCH MCHC RDW Plt Count MPV Neut % (Auto) Lymph % (Auto) Falls % (Auto) Eos % (Auto) Baso % (Auto) Neut # (Auto) Lymph # (Auto) Falls # (Auto) Eos # (Auto) Baso # (Auto) Sodium Potassium Chloride Carbon Dioxide Anion Gap BUN Creatinine Est GFR ( Amer) Est GFR (Non-Af Amer) POC Glucose (mg/dL) 102 155 H Random Glucose Calcium Total Bilirubin AST ALT Alkaline Phosphatase Total Protein Albumin Globulin Albumin/Globulin Ratio Fluid Source Fluid Appearance Fluid WBC Fluid RBC Fluid Tot Cell Count Fluid Neutrophils Fluid Lymphocytes Fld Monocyte/Macrophag Fluid Comment Ur L.pneumophila Ag Mycoplasma pneumon IgM Negative 10/09/17 10/10/17 10/10/17 23:00 04:40 04:40 WBC 10.0 RBC 3.87 L Hgb 12.4 Hct 36.0 MCV 92.9 MCH 32.1 H MCHC 34.6 RDW 13.9 Plt Count 226 MPV 7.3 Neut % (Auto) 67.5 Lymph % (Auto) 20.6 Falls % (Auto) 9.7 Eos % (Auto) 1.9 Baso % (Auto) 0.3 Neut # (Auto) 6.7 Lymph # (Auto) 2.1 Falls # (Auto) 1.0 H Eos # (Auto) 0.2 Baso # (Auto) 0.0 Sodium 140 Potassium 4.3 Chloride 102 Carbon Dioxide 33 H Anion Gap 9 L BUN 48 H Creatinine 1.0 Est GFR ( Amer) > 60 Est GFR (Non-Af Amer) > 60 POC Glucose (mg/dL) Random Glucose 98 Calcium 8.8 Total Bilirubin 0.9 AST 97 H ALT 63 Alkaline Phosphatase 52 Total Protein 5.9 L Albumin 3.4 L Globulin 2.5 Albumin/Globulin Ratio 1.4 Fluid Source Fluid Appearance Fluid WBC Fluid RBC Fluid Tot Cell Count Fluid Neutrophils Fluid Lymphocytes Fld Monocyte/Macrophag Fluid Comment Ur L.pneumophila Ag Negative Mycoplasma pneumon IgM 10/10/17 10/10/17 10/10/17 06:45 11:53 14:30 WBC RBC Hgb Hct MCV MCH MCHC RDW Plt Count MPV Neut % (Auto) Lymph % (Auto) Falls % (Auto) Eos % (Auto) Baso % (Auto) Neut # (Auto) Lymph # (Auto) Falls # (Auto) Eos # (Auto) Baso # (Auto) Sodium Potassium Chloride Carbon Dioxide Anion Gap BUN Creatinine Est GFR ( Amer) Est GFR (Non-Af Amer) POC Glucose (mg/dL) 159 H 167 H Random Glucose Calcium Total Bilirubin AST ALT Alkaline Phosphatase Total Protein Albumin Globulin Albumin/Globulin Ratio Fluid Source Pleural Fluid Appearance Bloody Fluid WBC 465.0 H Fluid RBC 52679.0 H Fluid Tot Cell Count 100 H Fluid Neutrophils 89.0 H Fluid Lymphocytes 5.0 H Fld Monocyte/Macrophag 6 H Fluid Comment Turbid Ur L.pneumophila Ag Mycoplasma pneumon IgM Critical Care Progress Note - Nutrition Nutrition: Nutrition Category Date Time Status Heart Healthy Diet [DIET] Diets 10/09/17 Lunch Active
[2017-10-10 15:51] LABS: BF GROSS APPEARANCE BLOODY (CLEAR)
[2017-10-10 16:00] LABS: BODY FLUID MONO/MACROPHAGE 6 % (0-0); BODY FLUID TOTAL COUNT 100 (0-0)
[2017-10-10 17:30] LABS: TOTAL PROTEIN,BODY FLUID 2.6 g/dL (NONE ESTABLISHED)
[2017-10-10] MEDS: Enoxaparin 40 mg Syringe SC SCH (17:37)
[2017-10-10] MEDS: Docusate-Senna 50 mg-8.6 mg Tab PO SCH (21:16)
[2017-10-10 21:32] LABS: URINE COLOR YELLOW (YELLOW)
[2017-10-10] MEDS: Insulin Detemir 100 Units/ml Inj SC SCH (21:33)
[2017-10-10 21:34] LABS: URINE CLARITY SLIGHT-CLOUDY (Clear); URINE GLUCOSE (UA) 50 mg/dL (Normal)
[2017-10-10 21:35] LABS: URINE BILIRUBIN NEGATIVE (NEGATIVE)
[2017-10-10 21:36] LABS: URINE BLOOD MODERATE (NEGATIVE); URINE LEUKOCYTE ESTERASE NEGATIVE Leu/uL (Negative); URINE PROTEIN NEGATIVE (NEGATIVE); URINE UROBILINOGEN 0.2-1.0 mg/dL (0.2-1.0)
[2017-10-10 21:37] LABS: SQUAMOUS EPITHIAL 1 /hpf (0-5)
[2017-10-11 05:49] LABS: HEMOGLOBIN 13.2 g/dL (12.0-18.0); MEAN CORPUSCULAR HEMOGLOBIN 32.4 pg (27.0-31.0); MEAN CORPUSCULAR HGB CONC 34.9 g/dL (33.0-37.0); RBC 4.08 Mil/uL (4.40-5.90); RED CELL DISTRIBUTION WIDTH 13.6 % (11.5-14.5); WHITE BLOOD COUNT 9.3 K/uL (4.8-10.8)
[2017-10-11 06:02] LABS: ALB/GLOB RATIO 1.2 (1.0-2.1); ALBUMIN 3.3 g/dL (3.5-5.0); ALT/SGPT 56 U/L (21-72); AST/SGOT 61 U/L (17-59); BLOOD UREA NITROGEN 45 mg/dl (9-20); CALCIUM 8.9 mg/dL (8.4-10.2); GFR AFRICAN-AMERICAN > 60; GFR NON-AFRICAN AMERICAN > 60
[2017-10-11] MEDS: Albuterol-Ipratrop 3 mg / 0.5 (3 ml) UD INH SCH ×4 (07:42→19:28)
--- NOTE | 2017-10-11 09:26 | CP.PCM.PN ---
Subjective - Date & Time of Evaluation Date of Evaluation: 10/11/17 Time of Evaluation: 09:26 - Subjective Subjective: ID Note- Pt. seen and examined today in ICU. pt. sitting up in chair and in good spirits and denies any sob. denies any chills. denies any diarrhea. pt. states he spoke with his doctors at [facility] and they told him biopsy of his lung showed "organized pneumonia and neg for cancer" ( as per patient). await official path report from [facility]. Objective - Vital Signs/Intake and Output Vital Signs (last 24 hours): Temp Pulse Resp BP Pulse Ox 98.4 F 87 15 135/71 100 10/11/17 04:00 10/11/17 06:00 10/11/17 07:43 10/11/17 06:00 10/11/17 06:00 Intake and Output: 10/11/17 10/11/17 06:59 18:59 Intake Total 500 Output Total 550 Balance -50 - Medications Medications: Current Medications Albuterol/Ipratropium (Duoneb 3 Mg/0.5 Mg (3 Ml) Ud) 3 ml INH RQID [facility] Last Admin: 10/11/17 07:42 Dose: 3 ml Atorvastatin Calcium (Lipitor) 40 mg PO DAILY@2100 [facility] Last Admin: 10/10/17 21:16 Dose: 40 mg Dextrose (Dextrose 50% Inj) 0 ml IV STAT PRN; Protocol PRN Reason: Hypoglycemia Protocol Dextrose (Glutose 15) 0 gm PO ONCE PRN; Protocol PRN Reason: Hypoglycemia Protocol Enoxaparin Sodium (Lovenox) 40 mg SC DAILY [facility] PRN Reason: Protocol Last Admin: 10/10/17 17:37 Dose: 40 mg Famotidine (Pepcid) 20 mg PO DAILY [facility] Last Admin: 10/10/17 08:59 Dose: 20 mg Finasteride (Proscar) 5 mg PO DAILY [facility] Last Admin: 10/10/17 09:00 Dose: 5 mg Gabapentin (Neurontin) 300 mg PO HS [facility] Last Admin: 10/10/17 21:17 Dose: 300 mg Glucagon (Glucagen Diagnostic Kit) 0 mg IM STAT PRN; Protocol PRN Reason: Hypoglycemia Protocol Hydrochlorothiazide (Microzide) 12.5 mg PO DAILY [facility] Last Admin: 10/08/17 14:04 Dose: Not Given Meropenem 1 gm/ Sodium (Chloride) 100 mls @ 100 mls/hr IVPB Q12 [facility] PRN Reason: Protocol Last Admin: 10/10/17 21:19 Dose: 100 mls/hr Vancomycin HCl 750 mg/ Sodium (Chloride) 250 mls @ 166.667 mls/hr IVPB Q12 [facility] PRN Reason: Protocol Last Admin: 10/10/17 21:18 Dose: 166.667 mls/hr Insulin Detemir (Levemir) 10 units SC [facility] Last Admin: 10/10/17 21:33 Dose: 10 units Levalbuterol HCl (Xopenex) 0.63 mg INH RQ4 PRN PRN Reason: Shortness of Breath Last Admin: 10/08/17 13:00 Dose: 0.63 mg Losartan Potassium (Cozaar) 50 mg PO DAILY [facility] Last Admin: 10/10/17 09:03 Dose: 50 mg Morphine Sulfate (Morphine) 2 mg IVP Q4 PRN PRN Reason: Pain, moderate (4-7) Last Admin: 10/10/17 19:49 Dose: 2 mg Morphine Sulfate (Morphine) 4 mg IVP Q4 PRN PRN Reason: Pain, severe (8-10) Ondansetron HCl (Zofran Inj) 4 mg IVP Q6 PRN PRN Reason: Nausea/Vomiting Oxycodone HCl (Oxycodone Immediate Release Tab) 5 mg PO Q6 PRN PRN Reason: Pain, Mild (1-3) Last Admin: 10/10/17 13:28 Dose: 5 mg Senna/Docusate Sodium (Senokot S 50 Mg-8.6 Mg) 2 tab PO [facility] Last Admin: 10/10/17 21:16 Dose: 2 tab - Labs Labs: - Additional Findings Additional findings: - Constitutional Appears: NAD - Head Exam Head Exam: ATRAUMATIC - Eye Exam Eye Exam: EOMI, PERRL - ENT Exam ENT Exam: Normal Oropharynx - Neck Exam Neck exam: Positive for: Full Rom - Respiratory Exam Additional comments: decreased breath sounds in left base no wheezing has 2 chest tubes in left chest , one anterior and one posterior draining serosanguinous fluid left chest subcutaneous crepitus much less - Cardiovascular Exam Cardiovascular Exam: Tachycardia, +S1, +S2 - GI/Abdominal Exam GI & Abdominal Exam: Normal Bowel Sounds, Soft Additional comments: NT, ND - Extremities Exam Extremities exam: Positive for: normal inspection Additional comments: no edema B/L LE - Neurological Exam Neurological exam: Alert, Oriented x 3 Laboratory Results - last 72 hr 10/07/17 10/07/17 10/07/17 16:35 20:06 23:03 WBC RBC Hgb Hct MCV MCH MCHC RDW Plt Count MPV Neut % (Auto) Lymph % (Auto) [place] % (Auto) Eos % (Auto) Baso % (Auto) Neut # (Auto) Lymph # (Auto) [place] # (Auto) Eos # (Auto) Baso # (Auto) Sodium Potassium Chloride Carbon Dioxide Anion Gap BUN Creatinine Est GFR ( Amer) Est GFR (Non-Af Amer) POC Glucose (mg/dL) 208 H 194 H Random Glucose Calcium Total Bilirubin AST ALT Alkaline Phosphatase Total Protein Albumin Globulin Albumin/Globulin Ratio Urine Color Urine Clarity Urine pH Ur Specific [place] Urine Protein Urine Glucose (UA) Urine Ketones Urine Blood Urine Nitrate Urine Bilirubin Urine Urobilinogen Ur Leukocyte Esterase Urine RBC (Auto) Urine Microscopic WBC Ur Squamous Epith Cells Fluid Source Fluid Appearance Fluid WBC Fluid RBC Fluid Tot Cell Count Fluid Neutrophils Fluid Lymphocytes Fld Monocyte/Macrophag Fluid Glucose Fluid Total Protein Fluid LDH Fluid Comment Ur L.pneumophila Ag Mycoplasma pneumon IgM Blood Type A POSITIVE Antibody Screen Negative Crossmatch See Detail BBK History Checked Patient has bt 10/08/17 10/08/17 10/08/17 07:58 11:44 15:53 WBC RBC Hgb Hct MCV MCH MCHC RDW Plt Count MPV Neut % (Auto) Lymph % (Auto) [place] % (Auto) Eos % (Auto) Baso % (Auto) Neut # (Auto) Lymph # (Auto) [place] # (Auto) Eos # (Auto) Baso # (Auto) Sodium Potassium Chloride Carbon Dioxide Anion Gap BUN Creatinine Est GFR ( Amer) Est GFR (Non-Af Amer) POC Glucose (mg/dL) 167 H 229 H 180 H Random Glucose Calcium Total Bilirubin AST ALT Alkaline Phosphatase Total Protein Albumin Globulin Albumin/Globulin Ratio Urine Color Urine Clarity Urine pH Ur Specific [place] Urine Protein Urine Glucose (UA) Urine Ketones Urine Blood Urine Nitrate Urine Bilirubin Urine Urobilinogen Ur Leukocyte Esterase Urine RBC (Auto) Urine Microscopic WBC Ur Squamous Epith Cells Fluid Source Fluid Appearance Fluid WBC Fluid RBC Fluid Tot Cell Count Fluid Neutrophils Fluid Lymphocytes Fld Monocyte/Macrophag Fluid Glucose Fluid Total Protein Fluid LDH Fluid Comment Ur L.pneumophila Ag Mycoplasma pneumon IgM Blood Type Antibody Screen Crossmatch BBK History Checked 10/08/17 10/09/17 10/09/17 21:09 04:45 04:45 WBC 18.8 H D RBC 4.13 L Hgb 12.9 Hct 38.2 MCV 92.6 MCH 31.2 H MCHC 33.7 RDW 13.9 Plt Count 265 MPV 7.4 Neut % (Auto) 86.7 H Lymph % (Auto) 5.9 L [place] % (Auto) 7.3 Eos % (Auto) 0.0 Baso % (Auto) 0.1 Neut # (Auto) 16.3 H Lymph # (Auto) 1.1 [place] # (Auto) 1.4 H Eos # (Auto) 0.0 Baso # (Auto) 0.0 Sodium 141 Potassium 5.0 Chloride 100 Carbon Dioxide 31 H Anion Gap 15 BUN 50 H Creatinine 1.2 Est GFR ( Amer) > 60 Est GFR (Non-Af Amer) 59 POC Glucose (mg/dL) 214 H Random Glucose 120 H Calcium 9.5 Total Bilirubin 0.7 AST 98 H D ALT 44 Alkaline Phosphatase 54 Total Protein 6.6 Albumin 3.8 Globulin 2.8 Albumin/Globulin Ratio 1.3 Urine Color Urine Clarity Urine pH Ur Specific [place] Urine Protein Urine Glucose (UA) Urine Ketones Urine Blood Urine Nitrate Urine Bilirubin Urine Urobilinogen Ur Leukocyte Esterase Urine RBC (Auto) Urine Microscopic WBC Ur Squamous Epith Cells Fluid Source Fluid Appearance Fluid WBC Fluid RBC Fluid Tot Cell Count Fluid Neutrophils Fluid Lymphocytes Fld Monocyte/Macrophag Fluid Glucose Fluid Total Protein Fluid LDH Fluid Comment Ur L.pneumophila Ag Mycoplasma pneumon IgM Blood Type Antibody Screen Crossmatch BBK History Checked 10/09/17 10/09/17 10/09/17 05:48 11:45 16:20 WBC RBC Hgb Hct MCV MCH MCHC RDW Plt Count MPV Neut % (Auto) Lymph % (Auto) [place] % (Auto) Eos % (Auto) Baso % (Auto) Neut # (Auto) Lymph # (Auto) [place] # (Auto) Eos # (Auto) Baso # (Auto) Sodium Potassium Chloride Carbon Dioxide Anion Gap BUN Creatinine Est GFR ( Amer) Est GFR (Non-Af Amer) POC Glucose (mg/dL) 121 H 93 102 Random Glucose Calcium Total Bilirubin AST ALT Alkaline Phosphatase Total Protein Albumin Globulin Albumin/Globulin Ratio Urine Color Urine Clarity Urine pH Ur Specific [place] Urine Protein Urine Glucose (UA) Urine Ketones Urine Blood Urine Nitrate Urine Bilirubin Urine Urobilinogen Ur Leukocyte Esterase Urine RBC (Auto) Urine Microscopic WBC Ur Squamous Epith Cells Fluid Source Fluid Appearance Fluid WBC Fluid RBC Fluid Tot Cell Count Fluid Neutrophils Fluid Lymphocytes Fld Monocyte/Macrophag Fluid Glucose Fluid Total Protein Fluid LDH Fluid Comment Ur L.pneumophila Ag Mycoplasma pneumon IgM Blood Type Antibody Screen Crossmatch BBK History Checked 10/09/17 10/09/17 10/09/17 18:00 21:29 23:00 WBC RBC Hgb Hct MCV MCH MCHC RDW Plt Count MPV Neut % (Auto) Lymph % (Auto) [place] % (Auto) Eos % (Auto) Baso % (Auto) Neut # (Auto) Lymph # (Auto) [place] # (Auto) Eos # (Auto) Baso # (Auto) Sodium Potassium Chloride Carbon Dioxide Anion Gap BUN Creatinine Est GFR ( Amer) Est GFR (Non-Af Amer) POC Glucose (mg/dL) 155 H Random Glucose Calcium Total Bilirubin AST ALT Alkaline Phosphatase Total Protein Albumin Globulin Albumin/Globulin Ratio Urine Color Urine Clarity Urine pH Ur Specific [place] Urine Protein Urine Glucose (UA) Urine Ketones Urine Blood Urine Nitrate Urine Bilirubin Urine Urobilinogen Ur Leukocyte Esterase Urine RBC (Auto) Urine Microscopic WBC Ur Squamous Epith Cells Fluid Source Fluid Appearance Fluid WBC Fluid RBC Fluid Tot Cell Count Fluid Neutrophils Fluid Lymphocytes Fld Monocyte/Macrophag Fluid Glucose Fluid Total Protein Fluid LDH Fluid Comment Ur L.pneumophila Ag Negative Mycoplasma pneumon IgM Negative Blood Type Antibody Screen Crossmatch BBK History Checked 10/10/17 10/10/17 10/10/17 04:40 04:40 06:45 WBC 10.0 RBC 3.87 L Hgb 12.4 Hct 36.0 MCV 92.9 MCH 32.1 H MCHC 34.6 RDW 13.9 Plt Count 226 MPV 7.3 Neut % (Auto) 67.5 Lymph % (Auto) 20.6 [place] % (Auto) 9.7 Eos % (Auto) 1.9 Baso % (Auto) 0.3 Neut # (Auto) 6.7 Lymph # (Auto) 2.1 [place] # (Auto) 1.0 H Eos # (Auto) 0.2 Baso # (Auto) 0.0 Sodium 140 Potassium 4.3 Chloride 102 Carbon Dioxide 33 H Anion Gap 9 L BUN 48 H Creatinine 1.0 Est GFR ( Amer) > 60 Est GFR (Non-Af Amer) > 60 POC Glucose (mg/dL) 159 H Random Glucose 98 Calcium 8.8 Total Bilirubin 0.9 AST 97 H ALT 63 Alkaline Phosphatase 52 Total Protein 5.9 L Albumin 3.4 L Globulin 2.5 Albumin/Globulin Ratio 1.4 Urine Color Urine Clarity Urine pH Ur Specific [place] Urine Protein Urine Glucose (UA) Urine Ketones Urine Blood Urine Nitrate Urine Bilirubin Urine Urobilinogen Ur Leukocyte Esterase Urine RBC (Auto) Urine Microscopic WBC Ur Squamous Epith Cells Fluid Source Fluid Appearance Fluid WBC Fluid RBC Fluid Tot Cell Count Fluid Neutrophils Fluid Lymphocytes Fld Monocyte/Macrophag Fluid Glucose Fluid Total Protein Fluid LDH Fluid Comment Ur L.pneumophila Ag Mycoplasma pneumon IgM Blood Type Antibody Screen Crossmatch BBK History Checked 10/10/17 10/10/17 10/10/17 11:53 14:30 16:30 WBC RBC Hgb Hct MCV MCH MCHC RDW Plt Count MPV Neut % (Auto) Lymph % (Auto) [place] % (Auto) Eos % (Auto) Baso % (Auto) Neut # (Auto) Lymph # (Auto) [place] # (Auto) Eos # (Auto) Baso # (Auto) Sodium Potassium Chloride Carbon Dioxide Anion Gap BUN Creatinine Est GFR ( Amer) Est GFR (Non-Af Amer) POC Glucose (mg/dL) 167 H Random Glucose Calcium Total Bilirubin AST ALT Alkaline Phosphatase Total Protein Albumin Globulin Albumin/Globulin Ratio Urine Color Urine Clarity Urine pH Ur Specific [place] Urine Protein Urine Glucose (UA) Urine Ketones Urine Blood Urine Nitrate Urine Bilirubin Urine Urobilinogen Ur Leukocyte Esterase Urine RBC (Auto) Urine Microscopic WBC Ur Squamous Epith Cells Fluid Source Pleural Fluid Appearance Bloody Fluid WBC 465.0 H Fluid [place] 59434.0 H Fluid Tot Cell Count 100 H Fluid Neutrophils 89.0 H Fluid Lymphocytes 5.0 H Fld Monocyte/Macrophag 6 H Fluid Glucose 114 Fluid Total Protein 2.6 Fluid LDH 3842 Fluid Comment Turbid Ur L.pneumophila Ag Mycoplasma pneumon IgM Blood Type Antibody Screen Crossmatch BBK History Checked 10/10/17 10/10/17 10/10/17 17:07 19:26 21:31 WBC RBC Hgb Hct MCV MCH MCHC RDW Plt Count MPV Neut % (Auto) Lymph % (Auto) [place] % (Auto) Eos % (Auto) Baso % (Auto) Neut # (Auto) Lymph # (Auto) [place] # (Auto) Eos # (Auto) Baso # (Auto) Sodium Potassium Chloride Carbon Dioxide Anion Gap BUN Creatinine Est GFR ( Amer) Est GFR (Non-Af Amer) POC Glucose (mg/dL) 189 H 158 H Random Glucose Calcium Total Bilirubin AST ALT Alkaline Phosphatase Total Protein Albumin Globulin Albumin/Globulin Ratio Urine Color Yellow Urine Clarity Slight-cloudy Urine pH 5.0 Ur Specific [place] 1.034 H Urine Protein Negative Urine Glucose (UA) 50 Urine Ketones Negative Urine Blood Moderate Urine Nitrate Negative Urine Bilirubin Negative Urine Urobilinogen 0.2-1.0 Ur Leukocyte Esterase Negative Urine RBC (Auto) 20 H Urine Microscopic WBC 5 Ur Squamous Epith Cells 1 Fluid Source Fluid Appearance Fluid WBC Fluid RBC Fluid Tot Cell Count Fluid Neutrophils Fluid Lymphocytes Fld Monocyte/Macrophag Fluid Glucose Fluid Total Protein Fluid LDH Fluid Comment Ur L.pneumophila Ag Mycoplasma pneumon IgM Blood Type Antibody Screen Crossmatch BBK History Checked 10/11/17 10/11/17 10/11/17 04:40 04:40 05:50 WBC 9.3 RBC 4.08 L Hgb 13.2 Hct 38.0 MCV 93.0 MCH 32.4 H MCHC 34.9 RDW 13.6 Plt Count 214 MPV Neut % (Auto) Lymph % (Auto) [place] % (Auto) Eos % (Auto) Baso % (Auto) Neut # (Auto) Lymph # (Auto) [place] # (Auto) Eos # (Auto) Baso # (Auto) Sodium 142 Potassium 4.3 Chloride 101 Carbon Dioxide 31 H Anion Gap 14 BUN 45 H Creatinine 0.9 Est GFR ( Amer) > 60 Est GFR (Non-Af Amer) > 60 POC Glucose (mg/dL) 86 Random Glucose 85 Calcium 8.9 Total Bilirubin 1.2 AST 61 H D ALT 56 Alkaline Phosphatase 54 Total Protein 5.9 L Albumin 3.3 L Globulin 2.6 Albumin/Globulin Ratio 1.2 Urine Color Urine Clarity Urine pH Ur Specific [place] Urine Protein Urine Glucose (UA) Urine Ketones Urine Blood Urine Nitrate Urine Bilirubin Urine Urobilinogen Ur Leukocyte Esterase Urine RBC (Auto) Urine Microscopic WBC Ur Squamous Epith Cells Fluid Source Fluid Appearance Fluid WBC Fluid RBC Fluid Tot Cell Count Fluid Neutrophils Fluid Lymphocytes Fld Monocyte/Macrophag Fluid Glucose Fluid Total Protein Fluid LDH Fluid Comment Ur L.pneumophila Ag Mycoplasma pneumon IgM Blood Type Antibody Screen Crossmatch BBK History Checked 10/11/17 10/11/17 12:16 16:51 WBC RBC Hgb Hct MCV MCH MCHC RDW Plt Count MPV Neut % (Auto) Lymph % (Auto) [place] % (Auto) Eos % (Auto) Baso % (Auto) Neut # (Auto) Lymph # (Auto) [place] # (Auto) Eos # (Auto) Baso # (Auto) Sodium Potassium Chloride Carbon Dioxide Anion Gap BUN Creatinine Est GFR ( Amer) Est GFR (Non-Af Amer) POC Glucose (mg/dL) 266 H 154 H Random Glucose Calcium Total Bilirubin AST ALT Alkaline Phosphatase Total Protein Albumin Globulin Albumin/Globulin Ratio Urine Color Urine Clarity Urine pH Ur Specific [place] Urine Protein Urine Glucose (UA) Urine Ketones Urine Blood Urine Nitrate Urine Bilirubin Urine Urobilinogen Ur Leukocyte Esterase Urine RBC (Auto) Urine Microscopic WBC Ur Squamous Epith Cells Fluid Source Fluid Appearance Fluid WBC Fluid RBC Fluid Tot Cell Count Fluid Neutrophils Fluid Lymphocytes Fld Monocyte/Macrophag Fluid Glucose Fluid Total Protein Fluid LDH Fluid Comment Ur L.pneumophila Ag Mycoplasma pneumon IgM Blood Type Antibody Screen Crossmatch BBK History Checked Microbiology 10/09/17 18:00 Blood-Venous Blood Culture - Preliminary NO GROWTH AFTER 48 HOURS 10/07/17 16:35 Blood-Venous S.aureus & Coag-Neg Staph PNA FISH - Final 10/07/17 16:35 Blood-Venous Blood Culture - Preliminary Gram Positive Cocci 10/07/17 16:35 Blood-Venous Gram Stain - Final 10/07/17 16:35 Blood-Venous Blood Culture - Preliminary NO GROWTH AFTER 4 DAYS 10/09/17 15:00 Other: Please Indicate Gram Stain - Final 10/09/17 15:00 Other: Please Indicate Wound Culture - Preliminary No growth. 10/09/17 15:00 Other: Please Indicate Gram Stain - Final 10/09/17 15:00 Other: Please Indicate Wound Culture - Preliminary No growth. 10/10/17 10:40 Blood-Venous Blood Culture - Preliminary NO GROWTH AFTER 24 HOURS 10/10/17 16:30 Pleural Fluid Gram Stain - Final 10/10/17 11:17 Sputum Gram Stain - Final Assessment and Plan (1) Pneumothorax Status: Acute (2) COPD exacerbation Status: Acute (3) Pulmonary nodules/lesions, multiple Status: Chronic (4) Leukocytosis Status: Resolved (5) Pulmonary emphysema Status: Chronic - Assessment and Plan (Free Text) Assessment: A/P- 76 year old male with multiple medical conditions including COPD, A.Fib, DM II s /p lung biopsy later developed pneumothorax s/p timothy tuube 2 days ago , ont not improved and had developed left sided chest subcutaneous emphysema s/p 2 chest tubes today. afebrile leukocytosis resolved. blood cx from 10/07 - one out of 2 bottles reported today GPC (anerobic bottle only). OR cx- perlim pending mycoplas ma IGm- neg Urine legionellla Ag- Neg Plan- the 1 out of 2 blood cx reported after 3 days and only on anaerobic bottle is most likely a contaminant. however since pt. has had multiple procedures started vanco pending repeat blood cx and ID and sens of the GPC. check TTE r/o veg. advise to continue with broad spectrum meropenem abx for nosocomial coverage pending further results. day #3. advise to f/u lung biopsy result from [facility] as well.( await official path report ) All labs and imaging reviewed. case d/w patient and his and all their questions answered. ICU time 45 min.
[2017-10-11] MEDS: Meropenem 1 GM in Sodium Chloride 0.9% 100 ML IVPB SCH ×2 (09:59→21:51)
[2017-10-11] MEDS: Enoxaparin 40 mg Syringe SC SCH (09:59)
[2017-10-11] MEDS: oxyCODONE 5 mg Immediate Release Tab PO PRN (10:05)
--- NOTE | 2017-10-11 10:07 | RAD ---
Date of service: 10/11/2017 HISTORY: chest tubes COMPARISON: 10/10/2017 FINDINGS: LUNGS: The patchy interstitial bilateral prominent markings are similar. The slightly greater confluence with airspace trace coalition in the right upper lung zone that is similar. The 2 left-sided chest tubes are unchanged position 1 projects just inferior to the left hilum another over the left lung apex on this single frontal view. PLEURA: No significant pleural effusion identified, no pneumothorax apparent. CARDIOVASCULAR: Normal. OSSEOUS STRUCTURES: No significant abnormalities. VISUALIZED UPPER ABDOMEN: Normal. OTHER FINDINGS: Extensive left lateral chest wall subcutaneous emphysema -similar IMPRESSION: No pneumothorax appreciated. The 2 left-sided chest tubes are similar in position. Other findings as above.
--- NOTE | 2017-10-11 10:13 | CP.PCM.PN ---
Subjective - Date & Time of Evaluation Date of Evaluation: 10/11/17 Time of Evaluation: 09:10 - Subjective Subjective: Slept appro 10-11 hrs last night Fairly pain free Afebrile A Fib at 90 -100 BPM, BP 140/70 mm Hg Pulse Ox 94- 98% Labs show stable CBC Improving BUN/Creatinin (attasts to better renal perfusion) Appetite good Stable from card point of view Will hold off anticoagulation till chest tube is removed Objective - Vital Signs/Intake and Output Vital Signs (last 24 hours): Temp Pulse Resp BP Pulse Ox 98.4 F 101 H 15 150/68 100 10/11/17 04:00 10/11/17 09:53 10/11/17 07:43 10/11/17 09:53 10/11/17 06:00 Intake and Output: 10/11/17 10/11/17 06:59 18:59 Intake Total 500 Output Total 550 Balance -50 - Medications Medications: Current Medications Albuterol/Ipratropium (Duoneb 3 Mg/0.5 Mg (3 Ml) Ud) 3 ml INH RQID [facility] Last Admin: 10/11/17 07:42 Dose: 3 ml Atorvastatin Calcium (Lipitor) 40 mg PO DAILY@2100 [facility] Last Admin: 10/10/17 21:16 Dose: 40 mg Dextrose (Dextrose 50% Inj) 0 ml IV STAT PRN; Protocol PRN Reason: Hypoglycemia Protocol Dextrose (Glutose 15) 0 gm PO ONCE PRN; Protocol PRN Reason: Hypoglycemia Protocol Enoxaparin Sodium (Lovenox) 40 mg SC DAILY [facility] PRN Reason: Protocol Last Admin: 10/11/17 09:59 Dose: 40 mg Famotidine (Pepcid) 20 mg PO DAILY [facility] Last Admin: 10/11/17 09:53 Dose: 20 mg Finasteride (Proscar) 5 mg PO DAILY [facility] Last Admin: 10/11/17 09:53 Dose: 5 mg Gabapentin (Neurontin) 300 mg PO HS [facility] Last Admin: 10/10/17 21:17 Dose: 300 mg Glucagon (Glucagen Diagnostic Kit) 0 mg IM STAT PRN; Protocol PRN Reason: Hypoglycemia Protocol Hydrochlorothiazide (Microzide) 12.5 mg PO DAILY [facility] Last Admin: 10/08/17 14:04 Dose: Not Given Meropenem 1 gm/ Sodium (Chloride) 100 mls @ 100 mls/hr IVPB Q12 [facility] PRN Reason: Protocol Last Admin: 10/11/17 09:59 Dose: 100 mls/hr Vancomycin HCl 750 mg/ Sodium (Chloride) 250 mls @ 166.667 mls/hr IVPB Q12 [facility] PRN Reason: Protocol Last Admin: 10/11/17 10:00 Dose: 166.667 mls/hr Insulin Detemir (Levemir) 10 units SC [facility] Last Admin: 10/10/17 21:33 Dose: 10 units Levalbuterol HCl (Xopenex) 0.63 mg INH RQ4 PRN PRN Reason: Shortness of Breath Last Admin: 10/08/17 13:00 Dose: 0.63 mg Losartan Potassium (Cozaar) 50 mg PO DAILY [facility] Last Admin: 10/11/17 09:53 Dose: 50 mg Morphine Sulfate (Morphine) 2 mg IVP Q4 PRN PRN Reason: Pain, moderate (4-7) Last Admin: 10/10/17 19:49 Dose: 2 mg Morphine Sulfate (Morphine) 4 mg IVP Q4 PRN PRN Reason: Pain, severe (8-10) Ondansetron HCl (Zofran Inj) 4 mg IVP Q6 PRN PRN Reason: Nausea/Vomiting Oxycodone HCl (Oxycodone Immediate Release Tab) 5 mg PO Q6 PRN PRN Reason: Pain, Mild (1-3) Last Admin: 10/11/17 10:05 Dose: 5 mg Senna/Docusate Sodium (Senokot S 50 Mg-8.6 Mg) 2 tab PO [facility] Last Admin: 10/10/17 21:16 Dose: 2 tab - Labs Labs: 10/11/17 04:40 10/11/17 04:40 PT 13.3 Seconds (9.8-13.1) H 10/07/17 16:35 INR 1.2 10/07/17 16:35 APTT 34.1 Seconds (25.6-37.1) 10/07/17 16:35
--- NOTE | 2017-10-11 11:38 | CP.PCM.PN ---
Subjective - Date & Time of Evaluation Date of Evaluation: 10/11/17 Time of Evaluation: 11:38 - Subjective Subjective: CT surgery progress note for Dr. Apple Garcia, PGY-2 Pt S & E at bedside at 1010 Pt reports SOB much improved, has pain at CT insertion sites. Pain is controlled by pain medications. Tolerating diet. Anterior CT with 30cc serosanguiouous output/24hr; posterior CT with 780cc serosanguinous output/ 24hrs. Objective - Vital Signs/Intake and Output Vital Signs (last 24 hours): Temp Pulse Resp BP Pulse Ox 98.4 F 101 H 16 150/68 100 10/11/17 04:00 10/11/17 09:53 10/11/17 11:30 10/11/17 09:53 10/11/17 06:00 Intake and Output: 10/11/17 10/11/17 06:59 18:59 Intake Total 500 Output Total 550 Balance -50 - Medications Medications: Current Medications Albuterol/Ipratropium (Duoneb 3 Mg/0.5 Mg (3 Ml) Ud) 3 ml INH RQID [facility] Last Admin: 10/11/17 11:29 Dose: 3 ml Atorvastatin Calcium (Lipitor) 40 mg PO DAILY@2100 [facility] Last Admin: 10/10/17 21:16 Dose: 40 mg Dextrose (Dextrose 50% Inj) 0 ml IV STAT PRN; Protocol PRN Reason: Hypoglycemia Protocol Dextrose (Glutose 15) 0 gm PO ONCE PRN; Protocol PRN Reason: Hypoglycemia Protocol Enoxaparin Sodium (Lovenox) 40 mg SC DAILY [facility] PRN Reason: Protocol Last Admin: 10/11/17 09:59 Dose: 40 mg Famotidine (Pepcid) 20 mg PO DAILY [facility] Last Admin: 10/11/17 09:53 Dose: 20 mg Finasteride (Proscar) 5 mg PO DAILY [facility] Last Admin: 10/11/17 09:53 Dose: 5 mg Gabapentin (Neurontin) 300 mg PO HS [facility] Last Admin: 10/10/17 21:17 Dose: 300 mg Glucagon (Glucagen Diagnostic Kit) 0 mg IM STAT PRN; Protocol PRN Reason: Hypoglycemia Protocol Hydrochlorothiazide (Microzide) 12.5 mg PO DAILY [facility] Last Admin: 10/08/17 14:04 Dose: Not Given Meropenem 1 gm/ Sodium (Chloride) 100 mls @ 100 mls/hr IVPB Q12 [facility] PRN Reason: Protocol Last Admin: 10/11/17 09:59 Dose: 100 mls/hr Vancomycin HCl 750 mg/ Sodium (Chloride) 250 mls @ 166.667 mls/hr IVPB Q12 [facility] PRN Reason: Protocol Last Admin: 10/11/17 10:00 Dose: 166.667 mls/hr Insulin Detemir (Levemir) 10 units SC [facility] Last Admin: 10/10/17 21:33 Dose: 10 units Levalbuterol HCl (Xopenex) 0.63 mg INH RQ4 PRN PRN Reason: Shortness of Breath Last Admin: 10/08/17 13:00 Dose: 0.63 mg Losartan Potassium (Cozaar) 50 mg PO DAILY [facility] Last Admin: 10/11/17 09:53 Dose: 50 mg Morphine Sulfate (Morphine) 2 mg IVP Q4 PRN PRN Reason: Pain, moderate (4-7) Last Admin: 10/10/17 19:49 Dose: 2 mg Morphine Sulfate (Morphine) 4 mg IVP Q4 PRN PRN Reason: Pain, severe (8-10) Ondansetron HCl (Zofran Inj) 4 mg IVP Q6 PRN PRN Reason: Nausea/Vomiting Oxycodone HCl (Oxycodone Immediate Release Tab) 5 mg PO Q6 PRN PRN Reason: Pain, Mild (1-3) Last Admin: 10/11/17 10:05 Dose: 5 mg Senna/Docusate Sodium (Senokot S 50 Mg-8.6 Mg) 2 tab PO [facility] Last Admin: 10/10/17 21:16 Dose: 2 tab - Labs Labs: 10/11/17 04:40 10/11/17 04:40 PT 13.3 Seconds (9.8-13.1) H 10/07/17 16:35 INR 1.2 10/07/17 16:35 APTT 34.1 Seconds (25.6-37.1) 10/07/17 16:35 - Constitutional Appears: Non-toxic, No Acute Distress - Head Exam Head Exam: ATRAUMATIC, NORMAL INSPECTION, NORMOCEPHALIC - Eye Exam Eye Exam: EOMI, Normal appearance - ENT Exam ENT Exam: Mucous Membranes Moist, Normal Exam - Neck Exam Neck Exam: Full ROM, Normal Inspection - Respiratory Exam Respiratory Exam: NORMAL BREATHING PATTERN. absent: Respiratory Distress Additional comments: Left chest wall with dressing in place- clean/dry/intact - Cardiovascular Exam Cardiovascular Exam: REGULAR RHYTHM, +S1, +S2 - GI/Abdominal Exam GI & Abdominal Exam: Soft. absent: Distended, Firm - Extremities Exam Extremities Exam: Full ROM - Neurological Exam Neurological Exam: Alert, Awake, CN II-XII Intact, Oriented x3 - Psychiatric Exam Psychiatric exam: Normal Affect, Normal Mood - Skin Skin Exam: Dry, Intact, Normal Color, Warm Assessment and Plan - Assessment and Plan (Free Text) Assessment: 76M w/Left pneumothorax s/p CT insertion x 2 POD #2 Plan: AM CXR w/no pneumothorax, CT x 2 in position. FU daily CXR FU daily labs Plan for CT scan, possibly next Monday Plan to clamp tubes x 24hrs possible d/c on Monday Will ALEXANDRO attending Radha, PGY-2
--- NOTE | 2017-10-11 12:32 | CP.CCUPN ---
<Sultan Yudith - Last Filed: 10/11/17 16:06> CCU Subjective - Physician Review Subjective (Free Text): 10/11/17 12:30 Patient seen and examined at bedside during rounds today. Pt was sitting in a chair with high flow NC oxygen, not in acute distress. Pt is s/p left anterior and posterior chest tube placement. Reports shortness of breath has improved. Tolerating PO intake and voiding. Reports no BM last few days. No other complaints. CCU Objective - Vital Signs / Intake & Output Vital Signs (Last 4 hours): Vital Signs Pulse Resp BP Pulse Ox 10/11/17 11:30 16 10/11/17 10:00 99 H 22 133/68 99 10/11/17 09:53 101 H 150/68 Intake and Output (Last 8hrs): Intake & Output 10/10/17 10/11/17 10/11/17 22:59 06:59 14:59 Intake Total 400 100 600 Output Total 355 350 250 Balance 45 -250 350 Intake: IV 0 350 Intake, Piggyback 350 Oral 50 100 250 Output: Chest Tube Drainage 55 150 Left Anterior Chest 17 10 Left Posterior Chest 38 140 Urine 300 200 250 Urine, Voided 300 200 250 Other: # Voids Urine, Voided 1 1 1 - Physical Exam Head: Positive for: Atraumatic, Normocephalic Pupils: Positive for: PERRL Extroacular Muscles: Positive for: EOMI Conjunctiva: Positive for: Normal. Negative for: Icteric Mouth: Positive for: Moist Mucous Membranes Nose (External): Positive for: Atraumatic. Negative for: Abrasion Neck: Positive for: Normal Range of Motion, Trachea Midline Respiratory/Chest: Positive for: Good Air Exchange, Decreased Breath Sounds, Other (left anterior and posterior chest tube in place, draining serosanguineous fluids.). Negative for: Respiratory Distress, Accessory Muscle Use, Rales Cardiovascular: Positive for: Irregular Rhythm, Peripheal Pulses Present. Negative for: Murmurs, Normal S1, S2 Abdomen: Positive for: Normal Bowel Sounds. Negative for: Tenderness, Distention Upper Extremity: Positive for: Normal Inspection. Negative for: Edema Lower Extremity: Positive for: Normal Inspection, NORMAL PULSES. Negative for: Edema, CALF TENDERNESS Neurological: Positive for: Speech Normal, Motor Func Grossly Intact, Normal Sensory Function Skin: Positive for: Warm, Normal Color. Negative for: Rashes Psychiatric: Positive for: Alert, Oriented x 3 - Medications Active Medications: Active Medications Generic Name Dose Route Start Last Admin Trade Name Freq PRN Reason Stop Dose Admin Albuterol/Ipratropium 3 ml 10/08/17 12:00 10/11/17 11:29 Duoneb 3 Mg/0.5 Mg (3 Ml) Ud INH 3 ml RQID [facility]ISES Administration Atorvastatin Calcium 40 mg 10/07/17 21:00 10/10/17 21:16 Lipitor PO 40 mg DAILY@2100 [facility] Administration Dextrose 0 ml 10/07/17 19:49 Dextrose 50% Inj IV STAT PRN Hypoglycemia Protocol Protocol Dextrose 0 gm 10/07/17 19:49 Glutose 15 PO ONCE PRN Hypoglycemia Protocol Protocol Enoxaparin Sodium 40 mg 10/10/17 16:15 10/11/17 09:59 Lovenox SC 40 mg DAILY [facility]IS[facility] Administration Protocol Famotidine 20 mg 10/08/17 13:15 10/11/17 09:53 Pepcid PO 20 mg DAILY [facility] Administration Finasteride 5 mg 10/08/17 09:00 10/11/17 09:53 Proscar PO 5 mg DAILY [facility] Administration Gabapentin 300 mg 10/07/17 22:00 10/10/17 21:17 Neurontin PO 300 mg HS [facility] Administration Glucagon 0 mg 10/07/17 19:49 Glucagen Diagnostic Kit IM STAT PRN Hypoglycemia Protocol Protocol Hydrochlorothiazide 12.5 mg 10/08/17 09:00 10/08/17 14:04 Microzide PO Not Given DAILY [facility] Meropenem 1 gm/ Sodium 100 mls @ 100 mls/hr 10/09/17 21:00 10/11/17 09:59 Chloride IVPB 100 mls/hr Q12 [facility]ES Administration Protocol Vancomycin HCl 750 mg/ Sodium 250 mls @ 166.667 mls/hr 10/10/17 21:00 10:00 Chloride IVPB 166.667 mls/hr Q12 [facility]ISES Administration Protocol Insulin Detemir 10 units 10/07/17 22:00 10/10/17 21:33 Levemir SC 10 units HS [facility] Administration Levalbuterol HCl 0.63 mg 10/08/17 09:07 10/08/17 13:00 Xopenex INH 0.63 mg RQ4 PRN Administration Shortness of Breath Losartan Potassium 50 mg 10/08/17 09:00 10/11/17 09:53 Cozaar PO 50 mg DAILY [facility] Administration Morphine Sulfate 2 mg 10/10/17 09:12 10/10/17 19:49 Morphine IVP 2 mg Q4 PRN Administration Pain, moderate (4-7) Morphine Sulfate 4 mg 10/10/17 16:50 Morphine IVP Q4 PRN Pain, severe (8-10) Ondansetron HCl 4 mg 10/09/17 15:01 Zofran Inj IVP Q6 PRN Nausea/Vomiting Oxycodone HCl 5 mg 10/09/17 16:27 10/11/17 10:05 Oxycodone Immediate Release Tab PO 5 mg Q6 PRN Administration Pain, Mild (1-3) Senna/Docusate Sodium 2 tab 10/10/17 22:00 10/10/17 21:16 Senokot S 50 Mg-8.6 Mg PO 2 tab HS [facility] Administration - Patient Studies Lab Studies: Microbiology Studies 10/09/17 15:00 Gram Stain - Final Other: Please Indicate Wound Culture - Preliminary No growth. 10/09/17 15:00 Gram Stain - Final Other: Please Indicate Wound Culture - Preliminary No growth. 10/10/17 10:40 Blood Culture - Preliminary Blood-Venous NO GROWTH AFTER 24 HOURS 10/10/17 16:30 Gram Stain - Final Pleural Fluid 10/09/17 18:00 Blood Culture - Preliminary Blood-Venous NO GROWTH AFTER 24 HOURS 10/10/17 11:17 Gram Stain - Final Sputum 10/07/17 16:35 Blood Culture - Preliminary Blood-Venous NO GROWTH AFTER 3 DAYS 10/07/17 16:35 Blood Culture - Preliminary Blood-Venous Gram Positive Cocci Gram Stain - Final Lab Studies 10/11/17 10/11/17 10/11/17 Range/Units 05:50 04:40 04:40 WBC 9.3 (4.8-10.8) K/uL RBC 4.08 L (4.40-5.90) Mil/uL Hgb 13.2 (12.0-18.0) g/dL Hct 38.0 (35.0-51.0) % MCV 93.0 (80.0-94.0) fl MCH 32.4 H (27.0-31.0) pg MCHC 34.9 (33.0-37.0) g/dL RDW 13.6 (11.5-14.5) % Plt Count 214 (130-400) K/uL Sodium 142 (132-148) mmol/l Potassium 4.3 (3.6-5.0) MMOL/L Chloride 101 (98-107) mmol/L Carbon Dioxide 31 H (22-30) mmol/L Anion Gap 14 (10-20) BUN 45 H (9-20) mg/dl Creatinine 0.9 (0.8-1.5) mg/dl Est GFR ( Amer) > 60 Est GFR (Non-Af Amer) > 60 POC Glucose (mg/dL) 86 (65-110) mg/dL Random Glucose 85 (75-110) mg/dL Calcium 8.9 (8.4-10.2) mg/dL Total Bilirubin 1.2 (0.2-1.3) mg/dl AST 61 H D (17-59) U/L ALT 56 (21-72) U/L Alkaline Phosphatase 54 (38-126) U/L Total Protein 5.9 L (6.3-8.2) G/DL Albumin 3.3 L (3.5-5.0) g/dL Globulin 2.6 (2.2-3.9) gm/dL Albumin/Globulin Ratio 1.2 (1.0-2.1) Urine Color (YELLOW) Urine Clarity (Clear) Urine pH (5.0-8.0) Ur Specific [place] (1.003-1.030) Urine Protein (NEGATIVE) mg/dL Urine Glucose (UA) (Normal) mg/dL Urine Ketones (NEGATIVE) mg/dL Urine Blood (NEGATIVE) Urine Nitrate (NEGATIVE) Urine Bilirubin (NEGATIVE) Urine Urobilinogen (0.2-1.0) mg/dL Ur Leukocyte Esterase (Negative) Nakul/uL Urine RBC (Auto) (0-3) /hpf Urine Microscopic WBC (0-5) /hpf Ur Squamous Epith Cells (0-5) /hpf Fluid Source Fluid Appearance (CLEAR) Fluid WBC (0.0-300.0) /mm3 Fluid RBC (0.0-0.0) /mm3 Fluid Tot Cell Count (0-0) Fluid Neutrophils (0-0) % Fluid Lymphocytes (0-0) % Fld Monocyte/Macrophag (0-0) % Fluid Glucose (NONE ESTABLISHED) mg/dL Fluid Total Protein (NONE ESTABLISHED) g/dL Fluid LDH (NONE ESTABLISHED) IU Fluid Comment Ur L.pneumophila Ag (NEGATIVE) Crossmatch 10/10/17 10/10/17 10/10/17 Range/Units 21:31 19:26 17:07 WBC (4.8-10.8) K/uL RBC (4.40-5.90) Mil/uL Hgb (12.0-18.0) g/dL Hct (35.0-51.0) % MCV (80.0-94.0) fl MCH (27.0-31.0) pg MCHC (33.0-37.0) g/dL RDW (11.5-14.5) % Plt Count (130-400) K/uL Sodium (132-148) mmol/l Potassium (3.6-5.0) MMOL/L Chloride (98-107) mmol/L Carbon Dioxide (22-30) mmol/L Anion Gap (10-20) BUN (9-20) mg/dl Creatinine (0.8-1.5) mg/dl Est GFR ( Amer) Est GFR (Non-Af Amer) POC Glucose (mg/dL) 158 H 189 H (65-110) mg/dL Random Glucose (75-110) mg/dL Calcium (8.4-10.2) mg/dL Total Bilirubin (0.2-1.3) mg/dl AST (17-59) U/L ALT (21-72) U/L Alkaline Phosphatase (38-126) U/L Total Protein (6.3-8.2) G/DL Albumin (3.5-5.0) g/dL Globulin (2.2-3.9) gm/dL Albumin/Globulin Ratio (1.0-2.1) Urine Color Yellow (YELLOW) Urine Clarity Slight-cloudy (Clear) Urine pH 5.0 (5.0-8.0) Ur Specific [place] 1.034 H (1.003-1.030) Urine Protein Negative (NEGATIVE) mg/dL Urine Glucose (UA) 50 (Normal) mg/dL Urine Ketones Negative (NEGATIVE) mg/dL Urine Blood Moderate (NEGATIVE) Urine Nitrate Negative (NEGATIVE) Urine Bilirubin Negative (NEGATIVE) Urine Urobilinogen 0.2-1.0 (0.2-1.0) mg/dL Ur Leukocyte Esterase Negative (Negative) Nakul/uL Urine RBC (Auto) 20 H (0-3) /hpf Urine Microscopic WBC 5 (0-5) /hpf Ur Squamous Epith Cells 1 (0-5) /hpf Fluid Source Fluid Appearance (CLEAR) Fluid WBC (0.0-300.0) /mm3 Fluid RBC (0.0-0.0) /mm3 Fluid Tot Cell Count (0-0) Fluid Neutrophils (0-0) % Fluid Lymphocytes (0-0) % Fld Monocyte/Macrophag (0-0) % Fluid Glucose (NONE ESTABLISHED) mg/dL Fluid Total Protein (NONE ESTABLISHED) g/dL Fluid LDH (NONE ESTABLISHED) IU Fluid Comment Ur L.pneumophila Ag (NEGATIVE) Crossmatch 10/10/17 10/10/17 10/09/17 Range/Units 16:30 14:30 23:00 WBC (4.8-10.8) K/uL RBC (4.40-5.90) Mil/uL Hgb (12.0-18.0) g/dL Hct (35.0-51.0) % MCV (80.0-94.0) fl MCH (27.0-31.0) pg MCHC (33.0-37.0) g/dL RDW (11.5-14.5) % Plt Count (130-400) K/uL Sodium (132-148) mmol/l Potassium (3.6-5.0) MMOL/L Chloride (98-107) mmol/L Carbon Dioxide (22-30) mmol/L Anion Gap (10-20) BUN (9-20) mg/dl Creatinine (0.8-1.5) mg/dl Est GFR ( Amer) Est GFR (Non-Af Amer) POC Glucose (mg/dL) (65-110) mg/dL Random Glucose (75-110) mg/dL Calcium (8.4-10.2) mg/dL Total Bilirubin (0.2-1.3) mg/dl AST (17-59) U/L ALT (21-72) U/L Alkaline Phosphatase (38-126) U/L Total Protein (6.3-8.2) G/DL Albumin (3.5-5.0) g/dL Globulin (2.2-3.9) gm/dL Albumin/Globulin Ratio (1.0-2.1) Urine Color (YELLOW) Urine Clarity (Clear) Urine pH (5.0-8.0) Ur Specific [place] (1.003-1.030) Urine Protein (NEGATIVE) mg/dL Urine Glucose (UA) (Normal) mg/dL Urine Ketones (NEGATIVE) mg/dL Urine Blood (NEGATIVE) Urine Nitrate (NEGATIVE) Urine Bilirubin (NEGATIVE) Urine Urobilinogen (0.2-1.0) mg/dL Ur Leukocyte Esterase (Negative) Nakul/uL Urine RBC (Auto) (0-3) /hpf Urine Microscopic WBC (0-5) /hpf Ur Squamous Epith Cells (0-5) /hpf Fluid Source Pleural Fluid Appearance Bloody (CLEAR) Fluid WBC 465.0 H (0.0-300.0) /mm3 Fluid RBC 33514.0 H (0.0-0.0) /mm3 Fluid Tot Cell Count 100 H (0-0) Fluid Neutrophils 89.0 H (0-0) % Fluid Lymphocytes 5.0 H (0-0) % Fld Monocyte/Macrophag 6 H (0-0) % Fluid Glucose 114 (NONE ESTABLISHED) mg/dL Fluid Total Protein 2.6 (NONE ESTABLISHED) g/dL Fluid LDH 3842 (NONE ESTABLISHED) IU Fluid Comment Turbid Ur L.pneumophila Ag Negative (NEGATIVE) Crossmatch 10/07/17 Range/Units 16:35 WBC (4.8-10.8) K/uL RBC (4.40-5.90) Mil/uL Hgb (12.0-18.0) g/dL Hct (35.0-51.0) % MCV (80.0-94.0) fl MCH (27.0-31.0) pg MCHC (33.0-37.0) g/dL RDW (11.5-14.5) % Plt Count (130-400) K/uL Sodium (132-148) mmol/l Potassium (3.6-5.0) MMOL/L Chloride (98-107) mmol/L Carbon Dioxide (22-30) mmol/L Anion Gap (10-20) BUN (9-20) mg/dl Creatinine (0.8-1.5) mg/dl Est GFR ( Amer) Est GFR (Non-Af Amer) POC Glucose (mg/dL) (65-110) mg/dL Random Glucose (75-110) mg/dL Calcium (8.4-10.2) mg/dL Total Bilirubin (0.2-1.3) mg/dl AST (17-59) U/L ALT (21-72) U/L Alkaline Phosphatase (38-126) U/L Total Protein (6.3-8.2) G/DL Albumin (3.5-5.0) g/dL Globulin (2.2-3.9) gm/dL Albumin/Globulin Ratio (1.0-2.1) Urine Color (YELLOW) Urine Clarity (Clear) Urine pH (5.0-8.0) Ur Specific [place] (1.003-1.030) Urine Protein (NEGATIVE) mg/dL Urine Glucose (UA) (Normal) mg/dL Urine Ketones (NEGATIVE) mg/dL Urine Blood (NEGATIVE) Urine Nitrate (NEGATIVE) Urine Bilirubin (NEGATIVE) Urine Urobilinogen (0.2-1.0) mg/dL Ur Leukocyte Esterase (Negative) Nakul/uL Urine RBC (Auto) (0-3) /hpf Urine Microscopic WBC (0-5) /hpf Ur Squamous Epith Cells (0-5) /hpf Fluid Source Fluid Appearance (CLEAR) Fluid WBC (0.0-300.0) /mm3 Fluid RBC (0.0-0.0) /mm3 Fluid Tot Cell Count (0-0) Fluid Neutrophils (0-0) % Fluid Lymphocytes (0-0) % Fld Monocyte/Macrophag (0-0) % Fluid Glucose (NONE ESTABLISHED) mg/dL Fluid Total Protein (NONE ESTABLISHED) g/dL Fluid LDH (NONE ESTABLISHED) IU Fluid Comment Ur L.pneumophila Ag (NEGATIVE) Crossmatch See Detail Laboratory Results - last 24 hr 10/07/17 10/09/17 10/10/17 16:35 23:00 14:30 WBC RBC Hgb Hct MCV MCH MCHC RDW Plt Count Sodium Potassium Chloride Carbon Dioxide Anion Gap BUN Creatinine Est GFR ( Amer) Est GFR (Non-Af Amer) POC Glucose (mg/dL) Random Glucose Calcium Total Bilirubin AST ALT Alkaline Phosphatase Total Protein Albumin Globulin Albumin/Globulin Ratio Urine Color Urine Clarity Urine pH Ur Specific [place] Urine Protein Urine Glucose (UA) Urine Ketones Urine Blood Urine Nitrate Urine Bilirubin Urine Urobilinogen Ur Leukocyte Esterase Urine RBC (Auto) Urine Microscopic WBC Ur Squamous Epith Cells Fluid Source Pleural Fluid Appearance Bloody Fluid WBC 465.0 H Fluid RBC 09725.0 H Fluid Tot Cell Count 100 H Fluid Neutrophils 89.0 H Fluid Lymphocytes 5.0 H Fld Monocyte/Macrophag 6 H Fluid Glucose Fluid Total Protein Fluid LDH Fluid Comment Turbid Ur L.pneumophila Ag Negative Crossmatch See Detail 10/10/17 10/10/17 10/10/17 16:30 17:07 19:26 WBC RBC Hgb Hct MCV MCH MCHC RDW Plt Count Sodium Potassium Chloride Carbon Dioxide Anion Gap BUN Creatinine Est GFR ( Amer) Est GFR (Non-Af Amer) POC Glucose (mg/dL) 189 H Random Glucose Calcium Total Bilirubin AST ALT Alkaline Phosphatase Total Protein Albumin Globulin Albumin/Globulin Ratio Urine Color Yellow Urine Clarity Slight-cloudy Urine pH 5.0 Ur Specific [place] 1.034 H Urine Protein Negative Urine Glucose (UA) 50 Urine Ketones Negative Urine Blood Moderate Urine Nitrate Negative Urine Bilirubin Negative Urine Urobilinogen 0.2-1.0 Ur Leukocyte Esterase Negative Urine RBC (Auto) 20 H Urine Microscopic WBC 5 Ur Squamous Epith Cells 1 Fluid Source Fluid Appearance Fluid WBC Fluid RBC Fluid Tot Cell Count Fluid Neutrophils Fluid Lymphocytes Fld Monocyte/Macrophag Fluid Glucose 114 Fluid Total Protein 2.6 Fluid LDH 3842 Fluid Comment Ur L.pneumophila Ag Crossmatch 10/10/17 10/11/17 10/11/17 21:31 04:40 04:40 WBC 9.3 RBC 4.08 L Hgb 13.2 Hct 38.0 MCV 93.0 MCH 32.4 H MCHC 34.9 RDW 13.6 Plt Count 214 Sodium 142 Potassium 4.3 Chloride 101 Carbon Dioxide 31 H Anion Gap 14 BUN 45 H Creatinine 0.9 Est GFR ( Amer) > 60 Est GFR (Non-Af Amer) > 60 POC Glucose (mg/dL) 158 H Random Glucose 85 Calcium 8.9 Total Bilirubin 1.2 AST 61 H D ALT 56 Alkaline Phosphatase 54 Total Protein 5.9 L Albumin 3.3 L Globulin 2.6 Albumin/Globulin Ratio 1.2 Urine Color Urine Clarity Urine pH Ur Specific [place] Urine Protein Urine Glucose (UA) Urine Ketones Urine Blood Urine Nitrate Urine Bilirubin Urine Urobilinogen Ur Leukocyte Esterase Urine RBC (Auto) Urine Microscopic WBC Ur Squamous Epith Cells Fluid Source Fluid Appearance Fluid WBC Fluid RBC Fluid Tot Cell Count Fluid Neutrophils Fluid Lymphocytes Fld Monocyte/Macrophag Fluid Glucose Fluid Total Protein Fluid LDH Fluid Comment Ur L.pneumophila Ag Crossmatch 10/11/17 05:50 WBC RBC Hgb Hct MCV MCH MCHC RDW Plt Count Sodium Potassium Chloride Carbon Dioxide Anion Gap BUN Creatinine Est GFR ( Amer) Est GFR (Non-Af Amer) POC Glucose (mg/dL) 86 Random Glucose Calcium Total Bilirubin AST ALT Alkaline Phosphatase Total Protein Albumin Globulin Albumin/Globulin Ratio Urine Color Urine Clarity Urine pH Ur Specific [place] Urine Protein Urine Glucose (UA) Urine Ketones Urine Blood Urine Nitrate Urine Bilirubin Urine Urobilinogen Ur Leukocyte Esterase Urine RBC (Auto) Urine Microscopic WBC Ur Squamous Epith Cells Fluid Source Fluid Appearance Fluid WBC Fluid RBC Fluid Tot Cell Count Fluid Neutrophils Fluid Lymphocytes Fld Monocyte/Macrophag Fluid Glucose Fluid Total Protein Fluid LDH Fluid Comment Ur L.pneumophila Ag Crossmatch Fingerstick Blood Sugar Results: 86 Review of Systems - Review of Systems All systems: reviewed and no additional remarkable complaints except (as mentioned above) Critical Care Progress Note - Nutrition Nutrition: Nutrition Category Date Time Status Heart Healthy Diet [DIET] Diets 10/09/17 Lunch Active Assessment/Plan - Assessment and Plan (Free Text) Assessment: 76 yo male with PMHx of HTN, Hypercholesterolemia, Atrial Fibrillation, COPD, Chronic Kidney Disease and multiple pulmonary nodules S/P HAYDE biopsy on 10/04, developed left sided pneumothorax s/p left anterior chest tube placement on and left posterior chest tube placement on 10/09/17, shortness of breath improved with high flow oxygen. Pulmonary: -Left sided pneumothorax s/p left anterior and posterior chest tube placement -Draining serosanguineous fluids(posterior>anterior) -Dyspnea improved with high flow oxygen, saturating well >98% -Chest x-ray on 10/11/17: No pneumothorax -Chronic obstructive lung disease: continue with current management. -Continue to monitor Cardiovascular: -Dr. Last on board -Atrial fibrillation, stable -Hypertension: Controlled. Continue with losartan 50 mg po daily. Hematology: -Leukocytosis resolved. Endocrine: -Diabetes mellitus II -Well controlled (HbA1c 7.7 on 05/2017) -Continue with current management GI: No acute issues -Continue with GI prophylaxis ID: -Dr. Luna on board -On meropenem 1 gm IVPB q12 and vancomycin 750 mg q12 -Blood cx on 10/07/17: gram positive cocci in clusters likely contaminant. -Blood cx and sputum cx on 10/10/17: no growth so far. DVT proph - SCD's GI proph -famotidine 20 mg po daily Code status - full code <Raghav Marsh - Last Filed: 10/11/17 18:19> CCU Subjective - Physician Review Subjective (Free Text): Attestation: Patient seen and examined at the bedside with Resident Dr. Tom Zurita; and I agree with his outline of plans and management documented below as discussed on AM rounds reflecting my review of all applicable clinical data, and participation in the care of the patient throughout the day in ICU; today, October 11, 2017. Overall, stable from critical care perspective, no anticipated interventions expected, awaiting further mgmt of chest tubes from [facility]. CCU Objective - Vital Signs / Intake & Output Intake and Output (Last 8hrs): \
--- NOTE | 2017-10-11 12:39 | CP.PCM.PN ---
Subjective - Date & Time of Evaluation Date of Evaluation: 10/11/17 Time of Evaluation: 08:00 - Subjective Subjective: Patient seen and evaluated in ICU during morning rounds. Patient lying in bed comfortably, No acute events overnight. SOB improved. Patient reports mild discomfort at chest tube insertion site. Vitals stable, Patient remains on High flow 30L/40%. The patient has remained afebrile. Leukocytosis has resolved. CT chest shows pneumothorax has resolved after initial tube was removed and 2 additional tubes inserted. No air leak present in Pleur[facility]. Subcuteneous emphysema still present but improving. Hopefully chest tubes can be removed in a timely manner and he can continue to have followup [place] [facility]. Objective - Vital Signs/Intake and Output Vital Signs (last 24 hours): Temp Pulse Resp BP Pulse Ox 98.5 F 99 H 16 133/68 99 10/11/17 08:00 10/11/17 10:00 10/11/17 11:30 10/11/17 10:00 10/11/17 10:00 Intake and Output: 10/11/17 10/11/17 06:59 18:59 Intake Total 500 600 Output Total 550 250 Balance -50 350 - Medications Medications: Current Medications Albuterol/Ipratropium (Duoneb 3 Mg/0.5 Mg (3 Ml) Ud) 3 ml INH RQID [facility] Last Admin: 10/11/17 11:29 Dose: 3 ml Atorvastatin Calcium (Lipitor) 40 mg PO DAILY@2100 [facility] Last Admin: 10/10/17 21:16 Dose: 40 mg Dextrose (Dextrose 50% Inj) 0 ml IV STAT PRN; Protocol PRN Reason: Hypoglycemia Protocol Dextrose (Glutose 15) 0 gm PO ONCE PRN; Protocol PRN Reason: Hypoglycemia Protocol Enoxaparin Sodium (Lovenox) 40 mg SC DAILY [facility] PRN Reason: Protocol Last Admin: 10/11/17 09:59 Dose: 40 mg Famotidine (Pepcid) 20 mg PO DAILY [facility] Last Admin: 10/11/17 09:53 Dose: 20 mg Finasteride (Proscar) 5 mg PO DAILY [facility] Last Admin: 10/11/17 09:53 Dose: 5 mg Gabapentin (Neurontin) 300 mg PO HS [facility] Last Admin: 10/10/17 21:17 Dose: 300 mg Glucagon (Glucagen Diagnostic Kit) 0 mg IM STAT PRN; Protocol PRN Reason: Hypoglycemia Protocol Hydrochlorothiazide (Microzide) 12.5 mg PO DAILY [facility] Last Admin: 10/08/17 14:04 Dose: Not Given Meropenem 1 gm/ Sodium (Chloride) 100 mls @ 100 mls/hr IVPB Q12 [facility] PRN Reason: Protocol Last Admin: 10/11/17 09:59 Dose: 100 mls/hr Vancomycin HCl 750 mg/ Sodium (Chloride) 250 mls @ 166.667 mls/hr IVPB Q12 [facility] PRN Reason: Protocol Last Admin: 10/11/17 10:00 Dose: 166.667 mls/hr Insulin Detemir (Levemir) [address] [facility] Last Admin: 10/10/17 21:33 Dose: 10 units Levalbuterol HCl (Xopenex) 0.63 mg INH RQ4 PRN PRN Reason: Shortness of Breath Last Admin: 10/08/17 13:00 Dose: 0.63 mg Losartan Potassium (Cozaar) 50 mg PO DAILY [facility] Last Admin: 10/11/17 09:53 Dose: 50 mg Morphine Sulfate (Morphine) 2 mg IVP Q4 PRN PRN Reason: Pain, moderate (4-7) Last Admin: 10/10/17 19:49 Dose: 2 mg Morphine Sulfate (Morphine) 4 mg IVP Q4 PRN PRN Reason: Pain, severe (8-10) Ondansetron HCl (Zofran Inj) 4 mg IVP Q6 PRN PRN Reason: Nausea/Vomiting Oxycodone HCl (Oxycodone Immediate Release Tab) 5 mg PO Q6 PRN PRN Reason: Pain, Mild (1-3) Last Admin: 10/11/17 10:05 Dose: 5 mg Senna/Docusate Sodium (Senokot S 50 Mg-8.6 Mg) [address] [facility] Last Admin: 10/10/17 21:16 Dose: 2 tab - Labs Labs: 10/11/17 04:40 10/11/17 04:40 PT 13.3 Seconds (9.8-13.1) H 10/07/17 16:35 INR 1.2 10/07/17 16:35 APTT 34.1 Seconds (25.6-37.1) 10/07/17 16:35
[2017-10-11] MEDS: Insulin Regular 100 units/ml SC SCH ×3 (13:50→21:58)
--- NOTE | 2017-10-11 13:59 | CP.PCM.PN ---
Subjective - Date & Time of Evaluation Date of Evaluation: 10/11/17 Time of Evaluation: 13:58 - Subjective Subjective: Patient is seen and examined at bedside. He is sitting up in bed, breathing comfortably. Patient denies chest pain, SOB. Patient's charts, labs, and nurse notes reviewed. Objective - Vital Signs/Intake and Output Vital Signs (last 24 hours): Temp Pulse Resp BP Pulse Ox 98.6 F 102 H 12 106/57 L 100 10/11/17 12:00 10/11/17 12:00 10/11/17 12:00 10/11/17 12:00 10/11/17 12:00 Intake and Output: 10/11/17 10/11/17 06:59 18:59 Intake Total 500 850 Output Total 550 250 Balance -50 600 - Medications Medications: Current Medications Albuterol/Ipratropium (Duoneb 3 Mg/0.5 Mg (3 Ml) Ud) 3 ml INH RQID [facility] Last Admin: 10/11/17 11:29 Dose: 3 ml Atorvastatin Calcium (Lipitor) 40 mg PO DAILY@2100 [facility] Last Admin: 10/10/17 21:16 Dose: 40 mg Dextrose (Dextrose 50% Inj) 0 ml IV STAT PRN; Protocol PRN Reason: Hypoglycemia Protocol Dextrose (Glutose 15) 0 gm PO ONCE PRN; Protocol PRN Reason: Hypoglycemia Protocol Enoxaparin Sodium (Lovenox) 40 mg SC DAILY [facility] PRN Reason: Protocol Last Admin: 10/11/17 09:59 Dose: 40 mg Famotidine (Pepcid) 20 mg PO DAILY [facility] Last Admin: 10/11/17 09:53 Dose: 20 mg Finasteride (Proscar) 5 mg PO DAILY [facility] Last Admin: 10/11/17 09:53 Dose: 5 mg Gabapentin (Neurontin) 300 mg PO HS [facility] Last Admin: 10/10/17 21:17 Dose: 300 mg Glucagon (Glucagen Diagnostic Kit) 0 mg IM STAT PRN; Protocol PRN Reason: Hypoglycemia Protocol Hydrochlorothiazide (Microzide) 12.5 mg PO DAILY [facility] Last Admin: 10/08/17 14:04 Dose: Not Given Meropenem 1 gm/ Sodium (Chloride) 100 mls @ 100 mls/hr IVPB Q12 [facility] PRN Reason: Protocol Last Admin: 10/11/17 09:59 Dose: 100 mls/hr Vancomycin HCl 750 mg/ Sodium (Chloride) 250 mls @ 166.667 mls/hr IVPB Q12 [facility] PRN Reason: Protocol Last Admin: 10/11/17 10:00 Dose: 166.667 mls/hr Insulin Detemir (Levemir) 10 units SC [facility] Last Admin: 10/10/17 21:33 Dose: 10 units Insulin Human Regular (Humulin R) 0 units SC [facility] PRN Reason: Protocol Last Admin: 10/11/17 13:50 Dose: 3 unit Levalbuterol HCl (Xopenex) 0.63 mg INH RQ4 PRN PRN Reason: Shortness of Breath Last Admin: 10/08/17 13:00 Dose: 0.63 mg Losartan Potassium (Cozaar) 50 mg PO DAILY [facility] Last Admin: 10/11/17 09:53 Dose: 50 mg Morphine Sulfate (Morphine) 2 mg IVP Q4 PRN PRN Reason: Pain, moderate (4-7) Last Admin: 10/10/17 19:49 Dose: 2 mg Morphine Sulfate (Morphine) 4 mg IVP Q4 PRN PRN Reason: Pain, severe (8-10) Ondansetron HCl (Zofran Inj) 4 mg IVP Q6 PRN PRN Reason: Nausea/Vomiting Oxycodone HCl (Oxycodone Immediate Release Tab) 5 mg PO Q6 PRN PRN Reason: Pain, Mild (1-3) Last Admin: 10/11/17 10:05 Dose: 5 mg Repaglinide (Prandin) 2 mg PO TIDWM [facility] Senna/Docusate Sodium (Senokot S 50 Mg-8.6 Mg) 2 tab PO [facility] Last Admin: 10/10/17 21:16 Dose: 2 tab - Labs Labs: 10/11/17 04:40 10/11/17 04:40 PT 13.3 Seconds (9.8-13.1) H 10/07/17 16:35 INR 1.2 10/07/17 16:35 APTT 34.1 Seconds (25.6-37.1) 10/07/17 16:35 - Constitutional Appears: No Acute Distress - ENT Exam ENT Exam: Mucous Membranes Moist - Respiratory Exam Respiratory Exam: Decreased Breath Sounds (L>R). absent: Wheezes, Respiratory Distress, Stridor Additional comments: Crepitus at upper anterior chest - Cardiovascular Exam Cardiovascular Exam: REGULAR RHYTHM, +S1, +S2 Additional comments: Tenderness at chest tube insertion sites - GI/Abdominal Exam GI & Abdominal Exam: Soft, Normal Bowel Sounds. absent: Tenderness - Back Exam Back Exam: absent: CVA tenderness (L), CVA tenderness (R) - Neurological Exam Neurological Exam: Alert, Awake, Oriented x3 - Skin Skin Exam: Dry, Intact, Normal Color, Warm Assessment and Plan - Assessment and Plan (Free Text) Assessment: 76 y/o male w/ PMHx of HTN, COPD, DM2, atrial fibrillation who was admitted for left pneumothorax which developed s/p lung biopsy, now POD #2 anterior left chest tube placement and s/p posterior left chest tube placement Plan: Left lung Pneumothorax -CXR 10/11/17 no penumothorax appreciated -Thoracic Surgery Consult, Dr. Justice: daily CXR, repeat CT chest monday10/16/17, clamp tubes x 24 hrs, consider discontinue chest tubes monday10/17/17 -s/p POD #2 left anterior and posterior chest tubes placement -s/p Left lung biopsy at [facility] on 10/04/17 -10/07/17: CT Chest: Left lung Pneumothorax, 40% lung collapsed -10/10/17: CT chest: no significant pneumothorax following placement of second chest tube, improved aeration and expansion -Pulmonology Consult appreciated: Dr. Hameed, will follow recommendations -Continue high flow O2 supplementation via nasal cannula, monitor respiratory status -ID consult appreciated, repeat blood cultures 10/09 no growth for 24 hours. Meropenem 1 gm IV Q12-day # 3 and Vancomycin 750 mg -Mycoplasma Igm and Legionella Ur Ag negative Atrial Fibrillation -Chronic, asymptomatic -Cardiology consult appreciated: Dr. Last : stable from cardiac point of view -Coumadin held per Dr. Last, latest INR 10/07/17 1.2 -was previously on digoxin, but this was d/c by Dr. Last in May due to detection of brief pauses EKG -no beta blockers as patient has limited respiratory reserve -Will start cardizem 30 mg PO Q6 if HR persists>100, hold for HR <60 and systolic BP <110 COPD -severe, chronic, Controlled -Pulmonology consult appreciated: Dr. Hameed -continue with Duonebs INH RQID [facility], Xopenex INH RQ4 PRN -hold Spiriva 18 mcg INH QD, hold Advair Diskus 500/50 1 puff IH Q12: per pulmonology -hold Ventolin HFA 2 puff IH Q6 PRN -monitor respiratory status Elevated ProBNP and Troponin -repeat echo ordered -serial troponins trending down -last echo in May showed EF 40-40%. However, per Dr. Last, patient has preserved left ventricular systolic function and elevated troponins are likely 2 /2 tachycardia induced myocyte injury -EKG findings likely 2/2 pneumothorax shifting mediastinum Left Lung Nodule, S/p Lung Biopsy on 10/04/17 at [facility] -Results pending -will contact [facility] for results Diabetes Mellitus type 2 -chronic, controlled -Last HBA1C: 7.7 on 05/2017 -continue with home medications: Levemir 10 SC QHS, Repaglinide 2mg TID. 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
--- NOTE | 2017-10-11 14:46 | CP.PCM.PN ---
Subjective - Date & Time of Evaluation Date of Evaluation: 10/11/17 Time of Evaluation: 14:41 - Subjective Subjective: Pt s/e. No sob. cxr-No pneumothorax. chest tubes ; 130/340/24 hours. Awaiting path report from [facility]. a/p: Doing well. Continue chest tubes suction. Objective - Vital Signs/Intake and Output Vital Signs (last 24 hours): Temp Pulse Resp BP Pulse Ox 98.6 F 102 H 12 106/57 L 100 10/11/17 12:00 10/11/17 12:00 10/11/17 12:00 10/11/17 12:00 10/11/17 12:00 Intake and Output: 10/11/17 10/11/17 06:59 18:59 Intake Total 500 850 Output Total 550 250 Balance -50 600 - Medications Medications: Current Medications Albuterol/Ipratropium (Duoneb 3 Mg/0.5 Mg (3 Ml) Ud) 3 ml INH RQID [facility] Last Admin: 10/11/17 11:29 Dose: 3 ml Atorvastatin Calcium (Lipitor) 40 mg PO DAILY@2100 [facility] Last Admin: 10/10/17 21:16 Dose: 40 mg Dextrose (Dextrose 50% Inj) 0 ml IV STAT PRN; Protocol PRN Reason: Hypoglycemia Protocol Dextrose (Glutose 15) 0 gm PO ONCE PRN; Protocol PRN Reason: Hypoglycemia Protocol Enoxaparin Sodium (Lovenox) 40 mg SC DAILY [facility] PRN Reason: Protocol Last Admin: 10/11/17 09:59 Dose: 40 mg Famotidine (Pepcid) 20 mg PO DAILY [facility] Last Admin: 10/11/17 09:53 Dose: 20 mg Finasteride (Proscar) 5 mg PO DAILY [facility] Last Admin: 10/11/17 09:53 Dose: 5 mg Gabapentin (Neurontin) 300 mg PO HS [facility] Last Admin: 10/10/17 21:17 Dose: 300 mg Glucagon (Glucagen Diagnostic Kit) 0 mg IM STAT PRN; Protocol PRN Reason: Hypoglycemia Protocol Hydrochlorothiazide (Microzide) 12.5 mg PO DAILY [facility] Last Admin: 10/08/17 14:04 Dose: Not Given Meropenem 1 gm/ Sodium (Chloride) 100 mls @ 100 mls/hr IVPB Q12 [facility] PRN Reason: Protocol Last Admin: 10/11/17 09:59 Dose: 100 mls/hr Vancomycin HCl 750 mg/ Sodium (Chloride) 250 mls @ 166.667 mls/hr IVPB Q12 [facility] PRN Reason: Protocol Last Admin: 10/11/17 10:00 Dose: 166.667 mls/hr Insulin Detemir (Levemir) 10 units SC HS [facility] Last Admin: 10/10/17 21:33 Dose: 10 units Insulin Human Regular (Humulin R) 0 units SC [facility] PRN Reason: Protocol Last Admin: 10/11/17 13:50 Dose: 3 unit Levalbuterol HCl (Xopenex) 0.63 mg INH RQ4 PRN PRN Reason: Shortness of Breath Last Admin: 10/08/17 13:00 Dose: 0.63 mg Losartan Potassium (Cozaar) 50 mg PO DAILY [facility] Last Admin: 10/11/17 09:53 Dose: 50 mg Morphine Sulfate (Morphine) 2 mg IVP Q4 PRN PRN Reason: Pain, moderate (4-7) Last Admin: 10/10/17 19:49 Dose: 2 mg Morphine Sulfate (Morphine) 4 mg IVP Q4 PRN PRN Reason: Pain, severe (8-10) Ondansetron HCl (Zofran Inj) 4 mg IVP Q6 PRN PRN Reason: Nausea/Vomiting Oxycodone HCl (Oxycodone Immediate Release Tab) 5 mg PO Q6 PRN PRN Reason: Pain, Mild (1-3) Last Admin: 10/11/17 10:05 Dose: 5 mg Repaglinide (Prandin) 2 mg PO TIDWM [facility] Senna/Docusate Sodium (Senokot S 50 Mg-8.6 Mg) 2 tab PO [facility] Last Admin: 10/10/17 21:16 Dose: 2 tab - Labs Labs: 10/11/17 04:40 10/11/17 04:40 PT 13.3 Seconds (9.8-13.1) H 10/07/17 16:35 INR 1.2 10/07/17 16:35 APTT 34.1 Seconds (25.6-37.1) 10/07/17 16:35
[2017-10-11] MEDS: Insulin Detemir 100 Units/ml Inj SC SCH (21:57)
[2017-10-11] MEDS: Docusate-Senna 50 mg-8.6 mg Tab PO SCH (21:57)
[2017-10-11] MEDS ORDERED: Glucagon Recombinant 1 mg Inj IM ONE (22:11)
[2017-10-12 06:17] LABS: BASO % 0.4 % (0.0-2.0); EOS # 0.4 K/uL (0.0-0.7); EOS % 4.8 % (0.0-4.0); LYMPH # 1.4 K/uL (1.0-4.3); LYMPH % 17.3 % (20.0-40.0); MEAN CELL VOLUME 92.2 fl (80.0-94.0); MEAN CORPUSCULAR HEMOGLOBIN 32.5 pg (27.0-31.0); MEAN CORPUSCULAR HGB CONC 35.3 g/dL (33.0-37.0); MEAN PLATELET VOLUME 7.6 fl (7.2-11.7); MONO # 0.8 K/uL (0.0-0.8); MONO % 10.3 % (0.0-10.0); NEUT # 5.4 K/uL (1.8-7.0); NEUT % 67.2 % (50.0-75.0); RBC 3.7 Mil/uL (4.40-5.90); RED CELL DISTRIBUTION WIDTH 13.6 % (11.5-14.5); WHITE BLOOD COUNT 8.1 K/uL (4.8-10.8)
[2017-10-12 06:55] LABS: ALB/GLOB RATIO 1.1 (1.0-2.1); ALBUMIN 2.8 g/dL (3.5-5.0); ALT/SGPT 44 U/L (21-72); AST/SGOT 42 U/L (17-59); BLOOD UREA NITROGEN 34 mg/dl (9-20); CALCIUM 8.6 mg/dL (8.4-10.2); GFR AFRICAN-AMERICAN > 60; GFR NON-AFRICAN AMERICAN > 60
--- NOTE | 2017-10-12 07:22 | OP ---
Copied To: Nicholas Justice MD Attending MD: Nicholas Justice MD PROCEDURE DATE: 10/09/2017 PREOPERATIVE DIAGNOSES: 1. Persistent left pneumothorax. 2. Subcutaneous emphysema. POSTOPERATIVE DIAGNOSES: 1. Persistent pneumothorax. 2. Hemothorax. 3. Subcutaneous emphysema. PROCEDURES: 1. Exploratory left minithoracotomy. 2. Evacuation of hemothorax. 3. Insertion of two chest tubes. 4. Removal of previously inserted chest tube and closure of the wound. SURGEON: Nicholas Justice MD [employer] TECHNICIAN: Bree Garcia DO ANESTHESIOLOGIST: Elgin Barnett MD ANESTHESIA: Endotracheal general anesthesia. OPERATIVE PROCEDURE: The patient was taken to the operating room where under satisfactory endotracheal general anesthesia, the patient was placed in supine position on the operating room table, was prepared and draped in a sterile fashion. Surgery was carried out by making a small thoracotomy incision in the fourth intercostal space in the anterior axillary line just posterior to the pectoralis major muscle. The incision was then deepened into the pleural cavity. Digital exploration at this time revealed no apparent adhesions. Therefore, a 28-Armenian chest tube was inserted and guided to the apex under direct fluoroscopic guidance. After satisfactory confirmation of the position, chest tube was secured at the skin edge with 0 silk sutures. Next, posterior chest tube was inserted through a small thoracotomy incision in the mid axillary line in the seventh intercostal space, and exploration revealed adhesions, which were subsequently lysed with blunt dissection. Then after satisfactory confirmation of free cavity, 28-Armenian chest tube was dragged through the previous opening posteriorly. Because of adhesions, chest tube was advanced about 8 inches. This was again carried out under direct fluoroscopic guidance. Chest tube was secured at the skin edge with 0 silk sutures. Next, previously placed chest tube was removed, and again this opening was used to retract chest tube to the proper places. At this time, sudden gush of blood was encountered, which was removed with pleural sucker. After satisfactory hemostasis, this thoracotomy opening was closed in layers, muscle fascia with interrupted 2-0 Vicryl, and skin with skin staplers. Chest tubes were hooked up to [employer] at 20 cm water. Sterile dressings were applied and taped in the usual manner. The patient tolerated the procedure very well and was returned to the recovery room, extubated, awake with good vital signs. Estimated blood loss was approximately 20 mL. Sponge, needle, and instrument counts were correct. Nicholas Justice MD
--- NOTE | 2017-10-12 07:35 | RAD ---
Date of service: 10/12/2017 PROCEDURE: CHEST RADIOGRAPH, 1 VIEW HISTORY: chest tube evalution COMPARISON: Portable chest 10/11/2016 4:17 a.m.. FINDINGS: Two left chest tubes unchanged in position. LUNGS: Linear atelectasis again identified right apex with prominent its reticular markings identified in the mid inferior left lung zone once again. No definite alveolitis bilaterally. PLEURA: No pneumothorax or pleural fluid seen. CARDIOVASCULAR: Normal. OSSEOUS STRUCTURES: No significant abnormalities. VISUALIZED UPPER ABDOMEN: Normal. OTHER FINDINGS: None. IMPRESSION: No pneumothorax bilaterally or pleural effusion. No definite alveolitis. Prominent markings are seen at the mid to inferior left lung zone with linear atelectasis or fibrosis right apex once again.
[2017-10-12] MEDS: Insulin Regular 100 units/ml SC SCH ×4 (08:00→21:02)
[2017-10-12] MEDS: Albuterol-Ipratrop 3 mg / 0.5 (3 ml) UD INH SCH ×4 (08:02→19:11)
--- NOTE | 2017-10-12 08:15 | CP.PCM.PN ---
Subjective - Date & Time of Evaluation Date of Evaluation: 10/12/17 Time of Evaluation: 08:13 - Subjective Subjective: Presently seated on the cammode. Informed that his biopsy result showed organized pneumonia. Discussed with the physician with whom he follows up at [facility] [place]. He will return there after being discharged from this institution. I informed him I will return later to examine him. He continues to do well but does have discomfort at the chest tube site. There is no cough or hemoptysis. Subcutaneous emphysema is gradually resolving. Vital signs remain stable and he is well oxygenated using supplemental nasal cannula. Breath sounds are markedly diminished bilaterally without any audible wheezing. No bronchial breathing or egophony. Rare dry rales are heard in the lower lobes. Heart sounds are distant and the rhythm is irregular. No cyanosis or dependent edema. Chest x-ray does show what appears to be good expansion of the left lung. Hyperinflated/emphysematous appearance of both lungs stable. Continue current medical management. Defer to surgical team regarding chest tubes. Objective - Vital Signs/Intake and Output Vital Signs (last 24 hours): Temp Pulse Resp BP Pulse Ox 98.8 F 94 H 19 155/51 H 99 10/12/17 04:00 10/12/17 06:00 10/12/17 06:00 10/12/17 06:00 10/12/17 06:00 Intake and Output: 10/11/17 10/12/17 23:59 11:59 Intake Total 1010 0 Output Total 500 120 Balance 510 -120 - Medications Medications: Current Medications Albuterol/Ipratropium (Duoneb 3 Mg/0.5 Mg (3 Ml) Ud) 3 ml INH RQID [facility] Last Admin: 10/12/17 08:02 Dose: 3 ml Atorvastatin Calcium (Lipitor) 40 mg PO DAILY@2100 [facility] Last Admin: 10/11/17 21:56 Dose: 40 mg Dextrose (Dextrose 50% Inj) 0 ml IV STAT PRN; Protocol PRN Reason: Hypoglycemia Protocol Dextrose (Glutose 15) 0 gm PO ONCE PRN; Protocol PRN Reason: Hypoglycemia Protocol Enoxaparin Sodium (Lovenox) 40 mg SC DAILY [facility] PRN Reason: Protocol Last Admin: 10/11/17 09:59 Dose: 40 mg Famotidine (Pepcid) 20 mg PO DAILY [facility] Last Admin: 10/11/17 09:53 Dose: 20 mg Finasteride (Proscar) 5 mg PO DAILY [facility] Last Admin: 10/11/17 09:53 Dose: 5 mg Gabapentin (Neurontin) 300 mg PO [facility] Last Admin: 10/11/17 21:57 Dose: 300 mg Glucagon (Glucagen Diagnostic Kit) 0 mg IM STAT PRN; Protocol PRN Reason: Hypoglycemia Protocol Hydrochlorothiazide (Microzide) 12.5 mg PO DAILY [facility] Last Admin: 10/08/17 14:04 Dose: Not Given Meropenem 1 gm/ Sodium (Chloride) 100 mls @ 100 mls/hr IVPB Q12 [facility] PRN Reason: Protocol Last Admin: 10/11/17 21:51 Dose: 100 mls/hr Vancomycin HCl 750 mg/ Sodium (Chloride) 250 mls @ 166.667 mls/hr IVPB Q12 [facility] PRN Reason: Protocol Last Admin: 10/11/17 21:58 Dose: 166.667 mls/hr Insulin Detemir (Levemir) 10 units SC [facility] Last Admin: 10/11/17 21:57 Dose: Not Given Insulin Human Regular (Humulin R) 0 units SC [facility] PRN Reason: Protocol Last Admin: 10/11/17 21:58 Dose: Not Given Levalbuterol HCl (Xopenex) 0.63 mg INH RQ4 PRN PRN Reason: Shortness of Breath Last Admin: 10/08/17 13:00 Dose: 0.63 mg Losartan Potassium (Cozaar) 50 mg PO DAILY [facility] Last Admin: 10/11/17 09:53 Dose: 50 mg Morphine Sulfate (Morphine) 2 mg IVP Q4 PRN PRN Reason: Pain, moderate (4-7) Last Admin: 10/12/17 06:28 Dose: 2 mg Morphine Sulfate (Morphine) 4 mg IVP Q4 PRN PRN Reason: Pain, severe (8-10) Last Admin: 10/11/17 21:50 Dose: 4 mg Ondansetron HCl (Zofran Inj) 4 mg IVP Q6 PRN PRN Reason: Nausea/Vomiting Oxycodone HCl (Oxycodone Immediate Release Tab) 5 mg PO Q6 PRN PRN Reason: Pain, Mild (1-3) Last Admin: 10/11/17 10:05 Dose: 5 mg Repaglinide (Prandin) 2 mg PO TIDWM [facility] Last Admin: 10/11/17 17:46 Dose: 2 mg Senna/Docusate Sodium (Senokot S 50 Mg-8.6 Mg) 2 tab PO [facility] Last Admin: 10/11/17 21:57 Dose: 2 tab - Labs Labs: 10/12/17 04:50 10/12/17 04:50 PT 13.3 Seconds (9.8-13.1) H 10/07/17 16:35 INR 1.2 10/07/17 16:35 APTT 34.1 Seconds (25.6-37.1) 10/07/17 16:35
[2017-10-12] MEDS: Enoxaparin 40 mg Syringe SC SCH (08:54)
--- NOTE | 2017-10-12 08:54 | CP.PCM.PN ---
Subjective - Date & Time of Evaluation Date of Evaluation: 10/12/17 Time of Evaluation: 07:20 - Subjective Subjective: Thoracic Surgery Dr. Justice Pt S&E @bedside. NAEO. no complaints. pain improved. denies SOB, F/C, N/V. tolerating diet. Objective - Vital Signs/Intake and Output Vital Signs (last 24 hours): Temp Pulse Resp BP Pulse Ox 99.1 F 104 H 19 153/72 H 99 10/12/17 08:00 10/12/17 08:00 10/12/17 08:23 10/12/17 08:00 10/12/17 08:00 Intake and Output: 10/12/17 10/12/17 06:59 18:59 Intake Total 550 100 Output Total 520 Balance 30 100 - Medications Medications: Current Medications Albuterol/Ipratropium (Duoneb 3 Mg/0.5 Mg (3 Ml) Ud) 3 ml INH RQID [facility] Last Admin: 10/12/17 08:02 Dose: 3 ml Atorvastatin Calcium (Lipitor) 40 mg PO DAILY@2100 [facility] Last Admin: 10/11/17 21:56 Dose: 40 mg Dextrose (Dextrose 50% Inj) 0 ml IV STAT PRN; Protocol PRN Reason: Hypoglycemia Protocol Dextrose (Glutose 15) 0 gm PO ONCE PRN; Protocol PRN Reason: Hypoglycemia Protocol Enoxaparin Sodium (Lovenox) 40 mg SC DAILY [facility] PRN Reason: Protocol Last Admin: 10/11/17 09:59 Dose: 40 mg Famotidine (Pepcid) 20 mg PO DAILY [facility] Last Admin: 10/11/17 09:53 Dose: 20 mg Finasteride (Proscar) 5 mg PO DAILY [facility] Last Admin: 10/11/17 09:53 Dose: 5 mg Gabapentin (Neurontin) 300 mg PO HS [facility] Last Admin: 10/11/17 21:57 Dose: 300 mg Glucagon (Glucagen Diagnostic Kit) 0 mg IM STAT PRN; Protocol PRN Reason: Hypoglycemia Protocol Hydrochlorothiazide (Microzide) 12.5 mg PO DAILY [facility] Last Admin: 10/08/17 14:04 Dose: Not Given Meropenem 1 gm/ Sodium (Chloride) 100 mls @ 100 mls/hr IVPB Q12 [facility] PRN Reason: Protocol Last Admin: 10/11/17 21:51 Dose: 100 mls/hr Vancomycin HCl 750 mg/ Sodium (Chloride) 250 mls @ 166.667 mls/hr IVPB Q12 [facility] PRN Reason: Protocol Last Admin: 10/11/17 21:58 Dose: 166.667 mls/hr Insulin Detemir (Levemir) 10 units SC [facility] Last Admin: 10/11/17 21:57 Dose: Not Given Insulin Human Regular (Humulin R) 0 units SC [facility] PRN Reason: Protocol Last Admin: 10/12/17 08:00 Dose: Not Given Levalbuterol HCl (Xopenex) 0.63 mg INH RQ4 PRN PRN Reason: Shortness of Breath Last Admin: 10/08/17 13:00 Dose: 0.63 mg Losartan Potassium (Cozaar) 50 mg PO DAILY [facility] Last Admin: 10/11/17 09:53 Dose: 50 mg Morphine Sulfate (Morphine) 2 mg IVP Q4 PRN PRN Reason: Pain, moderate (4-7) Last Admin: 10/12/17 06:28 Dose: 2 mg Morphine Sulfate (Morphine) 4 mg IVP Q4 PRN PRN Reason: Pain, severe (8-10) Last Admin: 10/11/17 21:50 Dose: 4 mg Ondansetron HCl (Zofran Inj) 4 mg IVP Q6 PRN PRN Reason: Nausea/Vomiting Oxycodone HCl (Oxycodone Immediate Release Tab) 5 mg PO Q6 PRN PRN Reason: Pain, Mild (1-3) Last Admin: 10/11/17 10:05 Dose: 5 mg Repaglinide (Prandin) 2 mg PO TIDWM [facility] Last Admin: 10/11/17 17:46 Dose: 2 mg Senna/Docusate Sodium (Senokot S 50 Mg-8.6 Mg) 2 tab PO [facility] Last Admin: 10/11/17 21:57 Dose: 2 tab - Labs Labs: 10/12/17 04:50 10/12/17 04:50 PT 13.3 Seconds (9.8-13.1) H 10/07/17 16:35 INR 1.2 10/07/17 16:35 APTT 34.1 Seconds (25.6-37.1) 10/07/17 16:35 - Constitutional Appears: Non-toxic, No Acute Distress - Head Exam Head Exam: NORMAL INSPECTION - Eye Exam Eye Exam: Normal appearance - ENT Exam ENT Exam: Mucous Membranes Moist - Respiratory Exam Respiratory Exam: NORMAL BREATHING PATTERN. absent: Accessory Muscle Use, Respiratory Distress Additional comments: (L) anterior and posterior chest tubes in place. on sxn, no leak improved subQ emphysema - Cardiovascular Exam Cardiovascular Exam: Tachycardia, REGULAR RHYTHM. absent: Bradycardia - GI/Abdominal Exam GI & Abdominal Exam: Soft. absent: Distended, Tenderness - Extremities Exam Extremities Exam: Normal Inspection - Neurological Exam Neurological Exam: Alert, Awake, Oriented x3 - Psychiatric Exam Psychiatric exam: Normal Affect, Normal Mood - Skin Skin Exam: Dry, Intact, Normal Color, Warm Assessment and Plan - Assessment and Plan (Free Text) Assessment: 76 y/o M w/ Left pneumothorax POD#3 s/p CT insertion x 2 - cont daily CXR - cont pain management - Plan for CT scan, possibly next Monday - Plan to clamp tubes x 24hrs - possible d/c tubes on Monday - encourage OOB to chair/Amb/IS use Pt discussed w/ Dr. Vinh Peterson DO PGY3
[2017-10-12] MEDS: Meropenem 1 GM in Sodium Chloride 0.9% 100 ML IVPB SCH ×2 (08:55→20:17)
--- NOTE | 2017-10-12 10:07 | CP.PCM.PN ---
Subjective - Date & Time of Evaluation Date of Evaluation: 10/12/17 Time of Evaluation: 09:00 - Subjective Subjective: Slept apprx 10 hrs Surgical pain well controlled Sitting OOB, has eaten most of his breakfast Afebrile A Fib at 80-90 BPM BP 140/60 mm Hg No signs of CHF Labs show resolving azotemia (Electrolytes stable) (?) resume anticoagulation Discussed with Pt appears stable to leave ICU Objective - Vital Signs/Intake and Output Vital Signs (last 24 hours): Temp Pulse Resp BP Pulse Ox 99.1 F 1 L 19 153/72 H 99 10/12/17 08:00 10/12/17 08:53 10/12/17 08:23 10/12/17 08:53 10/12/17 08:00 Intake and Output: 10/12/17 10/12/17 06:59 18:59 Intake Total 550 100 Output Total 520 Balance 30 100 - Medications Medications: Current Medications Albuterol/Ipratropium (Duoneb 3 Mg/0.5 Mg (3 Ml) Ud) 3 ml INH RQID [facility] Last Admin: 10/12/17 08:02 Dose: 3 ml Atorvastatin Calcium (Lipitor) 40 mg PO DAILY@2100 [facility] Last Admin: 10/11/17 21:56 Dose: 40 mg Dextrose (Dextrose 50% Inj) 0 ml IV STAT PRN; Protocol PRN Reason: Hypoglycemia Protocol Dextrose (Glutose 15) 0 gm PO ONCE PRN; Protocol PRN Reason: Hypoglycemia Protocol Enoxaparin Sodium (Lovenox) 40 mg SC DAILY [facility] PRN Reason: Protocol Last Admin: 10/12/17 08:54 Dose: 40 mg Famotidine (Pepcid) 20 mg PO DAILY [facility] Last Admin: 10/12/17 08:59 Dose: 20 mg Finasteride (Proscar) 5 mg PO DAILY [facility] Last Admin: 10/12/17 08:57 Dose: 5 mg Gabapentin (Neurontin) 300 mg PO HS [facility] Last Admin: 10/11/17 21:57 Dose: 300 mg Glucagon (Glucagen Diagnostic Kit) 0 mg IM STAT PRN; Protocol PRN Reason: Hypoglycemia Protocol Hydrochlorothiazide (Microzide) 12.5 mg PO DAILY [facility] Last Admin: 10/08/17 14:04 Dose: Not Given Meropenem 1 gm/ Sodium (Chloride) 100 mls @ 100 mls/hr IVPB Q12 [facility] PRN Reason: Protocol Last Admin: 10/12/17 08:55 Dose: 100 mls/hr Vancomycin HCl 750 mg/ Sodium (Chloride) 250 mls @ 166.667 mls/hr IVPB Q12 [facility] PRN Reason: Protocol Last Admin: 10/12/17 08:59 Dose: 166.667 mls/hr Insulin Detemir (Levemir) 10 units SC [facility] Last Admin: 10/11/17 21:57 Dose: Not Given Insulin Human Regular (Humulin R) 0 units SC [facility] PRN Reason: Protocol Last Admin: 10/12/17 08:00 Dose: Not Given Levalbuterol HCl (Xopenex) 0.63 mg INH RQ4 PRN PRN Reason: Shortness of Breath Last Admin: 10/08/17 13:00 Dose: 0.63 mg Losartan Potassium (Cozaar) 50 mg PO DAILY [facility] Last Admin: 10/12/17 08:53 Dose: 50 mg Morphine Sulfate (Morphine) 2 mg IVP Q4 PRN PRN Reason: Pain, moderate (4-7) Last Admin: 10/12/17 06:28 Dose: 2 mg Morphine Sulfate (Morphine) 4 mg IVP Q4 PRN PRN Reason: Pain, severe (8-10) Last Admin: 10/11/17 21:50 Dose: 4 mg Ondansetron HCl (Zofran Inj) 4 mg IVP Q6 PRN PRN Reason: Nausea/Vomiting Oxycodone HCl (Oxycodone Immediate Release Tab) 5 mg PO Q6 PRN PRN Reason: Pain, Mild (1-3) Last Admin: 10/11/17 10:05 Dose: 5 mg Repaglinide (Prandin) 2 mg PO TIDWM [facility] Last Admin: 10/12/17 08:57 Dose: 2 mg Senna/Docusate Sodium (Senokot S 50 Mg-8.6 Mg) 2 tab PO [facility] Last Admin: 10/11/17 21:57 Dose: 2 tab - Labs Labs: 10/12/17 04:50 10/12/17 04:50 PT 13.3 Seconds (9.8-13.1) H 10/07/17 16:35 INR 1.2 10/07/17 16:35 APTT 34.1 Seconds (25.6-37.1) 10/07/17 16:35
[2017-10-12] MEDS ORDERED: Enoxaparin 30 mg Syringe SC STA (11:21)
--- NOTE | 2017-10-12 11:51 | CP.PCM.PN ---
Subjective - Date & Time of Evaluation Date of Evaluation: 10/12/17 Time of Evaluation: 11:49 - Subjective Subjective: Patient seen and examined at bed side. Left ant. and post. chest tubes in place. He continues to have pain at chest tube insertion sites He is breathing comfortably on 2L NC O2. Patient endorses having large BM. Patient states he has good appetite. He denies chest pain, palpitations, SOB, dizziness, numbness/tingling. Objective - Vital Signs/Intake and Output Vital Signs (last 24 hours): Temp Pulse Resp BP Pulse Ox 99.1 F 1 L 19 153/72 H 99 10/12/17 08:00 10/12/17 08:53 10/12/17 08:23 10/12/17 08:53 10/12/17 08:00 Intake and Output: 10/12/17 10/12/17 06:59 18:59 Intake Total 550 100 Output Total 520 Balance 30 100 - Medications Medications: Current Medications Albuterol/Ipratropium (Duoneb 3 Mg/0.5 Mg (3 Ml) Ud) 3 ml INH RQID [facility] Last Admin: 10/12/17 11:19 Dose: 3 ml Atorvastatin Calcium (Lipitor) 40 mg PO DAILY@2100 [facility] Last Admin: 10/11/17 21:56 Dose: 40 mg Dextrose (Dextrose 50% Inj) 0 ml IV STAT PRN; Protocol PRN Reason: Hypoglycemia Protocol Dextrose (Glutose 15) 0 gm PO ONCE PRN; Protocol PRN Reason: Hypoglycemia Protocol Enoxaparin Sodium (Lovenox) 70 mg SC Q12 [facility] PRN Reason: Protocol Famotidine (Pepcid) 20 mg PO DAILY [facility] Last Admin: 10/12/17 08:59 Dose: 20 mg Finasteride (Proscar) 5 mg PO DAILY [facility] Last Admin: 10/12/17 08:57 Dose: 5 mg Gabapentin (Neurontin) 300 mg PO HS [facility] Last Admin: 10/11/17 21:57 Dose: 300 mg Glucagon (Glucagen Diagnostic Kit) 0 mg IM STAT PRN; Protocol PRN Reason: Hypoglycemia Protocol Hydrochlorothiazide (Microzide) 12.5 mg PO DAILY [facility] Last Admin: 10/08/17 14:04 Dose: Not Given Meropenem 1 gm/ Sodium (Chloride) 100 mls @ 100 mls/hr IVPB Q12 [facility] PRN Reason: Protocol Last Admin: 10/12/17 08:55 Dose: 100 mls/hr Vancomycin HCl 750 mg/ Sodium (Chloride) 250 mls @ 166.667 mls/hr IVPB Q12 [facility] PRN Reason: Protocol Last Admin: 10/12/17 08:59 Dose: 166.667 mls/hr Insulin Detemir (Levemir) 10 units SC HS [facility] Last Admin: 10/11/17 21:57 Dose: Not Given Insulin Human Regular (Humulin R) 0 units SC [facility] PRN Reason: Protocol Last Admin: 10/12/17 08:00 Dose: Not Given Levalbuterol HCl (Xopenex) 0.63 mg INH RQ4 PRN PRN Reason: Shortness of Breath Last Admin: 10/08/17 13:00 Dose: 0.63 mg Losartan Potassium (Cozaar) 50 mg PO DAILY [facility] Last Admin: 10/12/17 08:53 Dose: 50 mg Morphine Sulfate (Morphine) 2 mg IVP Q4 PRN PRN Reason: Pain, moderate (4-7) Last Admin: 10/12/17 06:28 Dose: 2 mg Morphine Sulfate (Morphine) 4 mg IVP Q4 PRN PRN Reason: Pain, severe (8-10) Last Admin: 10/11/17 21:50 Dose: 4 mg Ondansetron HCl (Zofran Inj) 4 mg IVP Q6 PRN PRN Reason: Nausea/Vomiting Oxycodone HCl (Oxycodone Immediate Release Tab) 5 mg PO Q6 PRN PRN Reason: Pain, Mild (1-3) Last Admin: 10/11/17 10:05 Dose: 5 mg Repaglinide (Prandin) 1 mg PO TIDAC [facility] Senna/Docusate Sodium (Senokot S 50 Mg-8.6 Mg) 2 tab PO [facility] Last Admin: 10/11/17 21:57 Dose: 2 tab - Labs Labs: 10/12/17 04:50 10/12/17 04:50 PT 13.3 Seconds (9.8-13.1) H 10/07/17 16:35 INR 1.2 10/07/17 16:35 APTT 34.1 Seconds (25.6-37.1) 10/07/17 16:35 - Constitutional Appears: No Acute Distress - ENT Exam ENT Exam: Mucous Membranes Moist - Respiratory Exam Respiratory Exam: Clear to Ausculation Bilateral, NORMAL BREATHING PATTERN. absent: Wheezes - Cardiovascular Exam Cardiovascular Exam: REGULAR RHYTHM, +S1, +S2 - GI/Abdominal Exam GI & Abdominal Exam: Soft, Normal Bowel Sounds. absent: Tenderness - Extremities Exam Extremities Exam: Normal Inspection. absent: Pedal Edema, Tenderness - Neurological Exam Neurological Exam: Alert, Awake, Oriented x3 - Psychiatric Exam Psychiatric exam: Normal Affect - Skin Skin Exam: Dry, Intact, Warm Assessment and Plan - Assessment and Plan (Free Text) Assessment: 76 y/o male w/ PMHx of HTN, COPD, DM2, atrial fibrillation who was admitted for left pneumothorax which developed s/p lung biopsy, now POD #3 anterior left chest tube placement and s/p posterior left chest tube placement Plan: Left lung Pneumothorax -repeat CXR no penumothorax/effusions appreciated -Thoracic Surgery Consult, Dr. Justice: daily CXR, repeat CT chest monday10/16/17, clamp tubes x 24 hrs, consider discontinue chest tubes Monday10/17/17 -s/p POD #3 left anterior and posterior chest tubes placement -s/p Left lung biopsy at [facility] on 10/04/17 -10/07/17: CT Chest: Left lung Pneumothorax, 40% lung collapsed -10/10/17: CT chest: no significant pneumothorax following placement of second chest tube, improved aeration and expansion -Pulmonology Consult appreciated: Dr. Hameed, will follow recommendations -Continue high flow O2 supplementation via nasal cannula, monitor respiratory status -Mycoplasma Igm and Legionella Ur Ag negative Blood cultures positive for gram+ cocci -10/07/2017 GPC+ in anaerobic sample -repeat blood cultures 10/09 and 10/10 no growth after 48 hours -ID consult appreciated; Meropenem 1 gm IV Q12 #4 and Vancomycin 750 mg Q12 day #3 Atrial Fibrillation -Chronic, asymptomatic -Cardiology consult appreciated: Dr. Last -Coumadin held per Dr. Last, latest INR 10/07/17 1.2 -was previously on digoxin, but this was d/c by Dr. Last in May due to detection of brief pauses EKG -no beta blockers as patient has limited respiratory reserve -Now on Lovenox 70 mg SC Q12 COPD -severe, chronic, Controlled -Pulmonology consult appreciated: Dr. Hameed -continue with Duonebs INH RQID [facility], Xopenex INH RQ4 PRN -hold Spiriva 18 mcg INH QD, hold Advair Diskus 500/50 1 puff IH Q12: per pulmonology -hold Ventolin HFA 2 puff IH Q6 PRN -monitor respiratory status Elevated ProBNP and Troponin -repeat echo ordered -serial troponins trending down -last echo in May showed EF 40-40%. However, per Dr. Last, patient has preserved left ventricular systolic function and elevated troponins are likely 2 /2 tachycardia induced myocyte injury -EKG findings likely 2/2 pneumothorax shifting mediastinum Left Lung Nodule, S/p Lung Biopsy on 10/04/17 at [facility] -bx showed "organized pneumonia" per patient -awaiting official path report Diabetes Mellitus type 2 -chronic, controlled -Repaglinide 2mg TID decreased to 1mg PO TIDAC -continue with home medications: Levemir 10 SC QHS. Insulin regular coverage scale added -Hypoglycemic treatment protocol in place -Renzo LAM -Last HBA1C: 7.7 on 05/2017 -Diet: heart healthy, low carbohydrate Hypertension -chronic, uncontrolled -continue home medication: Losartan 50 mg PO QD -HCTZ held -monitor BP HLD -chronic, controlled -continue home medication: atorvastatin 40mg DVT Prophylaxis -Now on Lovenox 70 mg SC Q12 -Discussed risks and benefits w/ airport location manager Full Code -Next of kin: , [place] [phone]
--- NOTE | 2017-10-12 12:37 | CP.PCM.PN ---
Subjective - Date & Time of Evaluation Date of Evaluation: 10/12/17 Time of Evaluation: 12:37 - Subjective Subjective: ID note- Pt. seen and examined today in ICU. denies any complaints today. still has the chest tubes. Objective - Vital Signs/Intake and Output Vital Signs (last 24 hours): Temp Pulse Resp BP Pulse Ox 97.8 F 87 18 119/59 L 99 10/12/17 12:00 10/12/17 12:00 10/12/17 12:00 10/12/17 12:00 10/12/17 12:00 Intake and Output: 10/12/17 10/12/17 06:59 18:59 Intake Total 550 100 Output Total 520 Balance 30 100 - Medications Medications: Current Medications Albuterol/Ipratropium (Duoneb 3 Mg/0.5 Mg (3 Ml) Ud) 3 ml INH RQID [facility] Last Admin: 10/12/17 11:19 Dose: 3 ml Atorvastatin Calcium (Lipitor) 40 mg PO DAILY@2100 [facility] Last Admin: 10/11/17 21:56 Dose: 40 mg Dextrose (Dextrose 50% Inj) 0 ml IV STAT PRN; Protocol PRN Reason: Hypoglycemia Protocol Dextrose (Glutose 15) 0 gm PO ONCE PRN; Protocol PRN Reason: Hypoglycemia Protocol Enoxaparin Sodium (Lovenox) 70 mg SC Q12 ULISES PRN Reason: Protocol Famotidine (Pepcid) 20 mg PO DAILY [facility] Last Admin: 10/12/17 08:59 Dose: 20 mg Finasteride (Proscar) 5 mg PO DAILY [facility] Last Admin: 10/12/17 08:57 Dose: 5 mg Gabapentin (Neurontin) 300 mg PO HS [facility] Last Admin: 10/11/17 21:57 Dose: 300 mg Glucagon (Glucagen Diagnostic Kit) 0 mg IM STAT PRN; Protocol PRN Reason: Hypoglycemia Protocol Hydrochlorothiazide (Microzide) 12.5 mg PO DAILY [facility] Last Admin: 10/08/17 14:04 Dose: Not Given Meropenem 1 gm/ Sodium (Chloride) 100 mls @ 100 mls/hr IVPB Q12 ULISES PRN Reason: Protocol Last Admin: 10/12/17 08:55 Dose: 100 mls/hr Vancomycin HCl 750 mg/ Sodium (Chloride) 250 mls @ 166.667 mls/hr IVPB Q12 ULISES PRN Reason: Protocol Last Admin: 10/12/17 08:59 Dose: 166.667 mls/hr Insulin Detemir (Levemir) 10 units SC [facility] Last Admin: 10/11/17 21:57 Dose: Not Given Insulin Human Regular (Humulin R) 0 units SC [facility] PRN Reason: Protocol Last Admin: 10/12/17 08:00 Dose: Not Given Levalbuterol HCl (Xopenex) 0.63 mg INH RQ4 PRN PRN Reason: Shortness of Breath Last Admin: 10/08/17 13:00 Dose: 0.63 mg Losartan Potassium (Cozaar) 50 mg PO DAILY [facility] Last Admin: 10/12/17 08:53 Dose: 50 mg Morphine Sulfate (Morphine) 2 mg IVP Q4 PRN PRN Reason: Pain, moderate (4-7) Last Admin: 10/12/17 06:28 Dose: 2 mg Morphine Sulfate (Morphine) 4 mg IVP Q4 PRN PRN Reason: Pain, severe (8-10) Last Admin: 10/11/17 21:50 Dose: 4 mg Ondansetron HCl (Zofran Inj) 4 mg IVP Q6 PRN PRN Reason: Nausea/Vomiting Oxycodone HCl (Oxycodone Immediate Release Tab) 5 mg PO Q6 PRN PRN Reason: Pain, Mild (1-3) Last Admin: 10/11/17 10:05 Dose: 5 mg Repaglinide (Prandin) 1 mg PO TIDAC [facility] Senna/Docusate Sodium (Senokot S 50 Mg-8.6 Mg) 2 tab PO [facility] Last Admin: 10/11/17 21:57 Dose: 2 tab - Labs Labs: - Additional Findings Additional findings: - Constitutional Appears: NAD - Head Exam Head Exam: ATRAUMATIC - Eye Exam Eye Exam: EOMI, PERRL - ENT Exam ENT Exam: Normal Oropharynx - Neck Exam Neck exam: Positive for: Full Rom - Respiratory Exam Additional comments: decreased breath sounds in left base no wheezing has 2 chest tubes in left chest , one anterior and one posterior draining serosanguinous fluid left chest subcutaneous crepitus much less - Cardiovascular Exam Cardiovascular Exam: Tachycardia, +S1, +S2 - GI/Abdominal Exam GI & Abdominal Exam: Normal Bowel Sounds, Soft Additional comments: NT, ND - Extremities Exam Extremities exam: Positive for: normal inspection Additional comments: no edema B/L LE - Neurological Exam Neurological exam: Alert, Oriented x 3 Laboratory Results - last 72 hr 10/07/17 10/09/17 10/09/17 16:35 16:20 18:00 WBC RBC Hgb Hct MCV MCH MCHC RDW Plt Count MPV Neut % (Auto) Lymph % (Auto) Young % (Auto) Eos % (Auto) Baso % (Auto) Neut # (Auto) Lymph # (Auto) Young # (Auto) Eos # (Auto) Baso # (Auto) Sodium Potassium Chloride Carbon Dioxide Anion Gap BUN Creatinine Est GFR ( Amer) Est GFR (Non-Af Amer) POC Glucose (mg/dL) 102 Random Glucose Calcium Total Bilirubin AST ALT Alkaline Phosphatase Total Protein Albumin Globulin Albumin/Globulin Ratio Urine Color Urine Clarity Urine pH Ur Specific [place] Urine Protein Urine Glucose (UA) Urine Ketones Urine Blood Urine Nitrate Urine Bilirubin Urine Urobilinogen Ur Leukocyte Esterase Urine RBC (Auto) Urine Microscopic WBC Ur Squamous Epith Cells Fluid Source Fluid Appearance Fluid WBC Fluid RBC Fluid Tot Cell Count Fluid Neutrophils Fluid Lymphocytes Fld Monocyte/Macrophag Fluid Glucose Fluid Total Protein Fluid LDH Fluid Comment Ur L.pneumophila Ag Mycoplasma pneumon IgM Negative Crossmatch See Detail 10/09/17 10/09/17 10/10/17 21:29 23:00 04:40 WBC RBC Hgb Hct MCV MCH MCHC RDW Plt Count MPV Neut % (Auto) Lymph % (Auto) Young % (Auto) Eos % (Auto) Baso % (Auto) Neut # (Auto) Lymph # (Auto) Young # (Auto) Eos # (Auto) Baso # (Auto) Sodium 140 Potassium 4.3 Chloride 102 Carbon Dioxide 33 H Anion Gap 9 L BUN 48 H Creatinine 1.0 Est GFR ( Amer) > 60 Est GFR (Non-Af Amer) > 60 POC Glucose (mg/dL) 155 H Random Glucose 98 Calcium 8.8 Total Bilirubin 0.9 AST 97 H ALT 63 Alkaline Phosphatase 52 Total Protein 5.9 L Albumin 3.4 L Globulin 2.5 Albumin/Globulin Ratio 1.4 Urine Color Urine Clarity Urine pH Ur Specific [place] Urine Protein Urine Glucose (UA) Urine Ketones Urine Blood Urine Nitrate Urine Bilirubin Urine Urobilinogen Ur Leukocyte Esterase Urine RBC (Auto) Urine Microscopic WBC Ur Squamous Epith Cells Fluid Source Fluid Appearance Fluid WBC Fluid RBC Fluid Tot Cell Count Fluid Neutrophils Fluid Lymphocytes Fld Monocyte/Macrophag Fluid Glucose Fluid Total Protein Fluid LDH Fluid Comment Ur L.pneumophila Ag Negative Mycoplasma pneumon IgM Crossmatch 10/10/17 10/10/17 10/10/17 04:40 06:45 11:53 WBC 10.0 RBC 3.87 L Hgb 12.4 Hct 36.0 MCV 92.9 MCH 32.1 H MCHC 34.6 RDW 13.9 Plt Count 226 MPV 7.3 Neut % (Auto) 67.5 Lymph % (Auto) 20.6 Young % (Auto) 9.7 Eos % (Auto) 1.9 Baso % (Auto) 0.3 Neut # (Auto) 6.7 Lymph # (Auto) 2.1 Young # (Auto) 1.0 H Eos # (Auto) 0.2 Baso # (Auto) 0.0 Sodium Potassium Chloride Carbon Dioxide Anion Gap BUN Creatinine Est GFR ( Amer) Est GFR (Non-Af Amer) POC Glucose (mg/dL) 159 H 167 H Random Glucose Calcium Total Bilirubin AST ALT Alkaline Phosphatase Total Protein Albumin Globulin Albumin/Globulin Ratio Urine Color Urine Clarity Urine pH Ur Specific [place] Urine Protein Urine Glucose (UA) Urine Ketones Urine Blood Urine Nitrate Urine Bilirubin Urine Urobilinogen Ur Leukocyte Esterase Urine RBC (Auto) Urine Microscopic WBC Ur Squamous Epith Cells Fluid Source Fluid Appearance Fluid WBC Fluid RBC Fluid Tot Cell Count Fluid Neutrophils Fluid Lymphocytes Fld Monocyte/Macrophag Fluid Glucose Fluid Total Protein Fluid LDH Fluid Comment Ur L.pneumophila Ag Mycoplasma pneumon IgM Crossmatch 10/10/17 10/10/17 10/10/17 14:30 16:30 17:07 WBC RBC Hgb Hct MCV MCH MCHC RDW Plt Count MPV Neut % (Auto) Lymph % (Auto) Young % (Auto) Eos % (Auto) Baso % (Auto) Neut # (Auto) Lymph # (Auto) Young # (Auto) Eos # (Auto) Baso # (Auto) Sodium Potassium Chloride Carbon Dioxide Anion Gap BUN Creatinine Est GFR ( Amer) Est GFR (Non-Af Amer) POC Glucose (mg/dL) 189 H Random Glucose Calcium Total Bilirubin AST ALT Alkaline Phosphatase Total Protein Albumin Globulin Albumin/Globulin Ratio Urine Color Urine Clarity Urine pH Ur Specific [place] Urine Protein Urine Glucose (UA) Urine Ketones Urine Blood Urine Nitrate Urine Bilirubin Urine Urobilinogen Ur Leukocyte Esterase Urine RBC (Auto) Urine Microscopic WBC Ur Squamous Epith Cells Fluid Source Pleural Fluid Appearance Bloody Fluid WBC 465.0 H Fluid RBC 47063.0 H Fluid Tot Cell Count 100 H Fluid Neutrophils 89.0 H Fluid Lymphocytes 5.0 H Fld Monocyte/Macrophag 6 H Fluid Glucose 114 Fluid Total Protein 2.6 Fluid LDH 3842 Fluid Comment Turbid Ur L.pneumophila Ag Mycoplasma pneumon IgM Crossmatch 10/10/17 10/10/17 10/11/17 19:26 21:31 04:40 WBC RBC Hgb Hct MCV MCH MCHC RDW Plt Count MPV Neut % (Auto) Lymph % (Auto) Young % (Auto) Eos % (Auto) Baso % (Auto) Neut # (Auto) Lymph # (Auto) Young # (Auto) Eos # (Auto) Baso # (Auto) Sodium 142 Potassium 4.3 Chloride 101 Carbon Dioxide 31 H Anion Gap 14 BUN 45 H Creatinine 0.9 Est GFR ( Amer) > 60 Est GFR (Non-Af Amer) > 60 POC Glucose (mg/dL) 158 H Random Glucose 85 Calcium 8.9 Total Bilirubin 1.2 AST 61 H D ALT 56 Alkaline Phosphatase 54 Total Protein 5.9 L Albumin 3.3 L Globulin 2.6 Albumin/Globulin Ratio 1.2 Urine Color Yellow Urine Clarity Slight-cloudy Urine pH 5.0 Ur Specific [place] 1.034 H Urine Protein Negative Urine Glucose (UA) 50 Urine Ketones Negative Urine Blood Moderate Urine Nitrate Negative Urine Bilirubin Negative Urine Urobilinogen 0.2-1.0 Ur Leukocyte Esterase Negative Urine RBC (Auto) 20 H Urine Microscopic WBC 5 Ur Squamous Epith Cells 1 Fluid Source Fluid Appearance Fluid WBC Fluid RBC Fluid Tot Cell Count Fluid Neutrophils Fluid Lymphocytes Fld Monocyte/Macrophag Fluid Glucose Fluid Total Protein Fluid LDH Fluid Comment Ur L.pneumophila Ag Mycoplasma pneumon IgM Crossmatch 10/11/17 10/11/17 10/11/17 04:40 05:50 12:16 WBC 9.3 RBC 4.08 L Hgb 13.2 Hct 38.0 MCV 93.0 MCH 32.4 H MCHC 34.9 RDW 13.6 Plt Count 214 MPV Neut % (Auto) Lymph % (Auto) Young % (Auto) Eos % (Auto) Baso % (Auto) Neut # (Auto) Lymph # (Auto) Young # (Auto) Eos # (Auto) Baso # (Auto) Sodium Potassium Chloride Carbon Dioxide Anion Gap BUN Creatinine Est GFR ( Amer) Est GFR (Non-Af Amer) POC Glucose (mg/dL) 86 266 H Random Glucose Calcium Total Bilirubin AST ALT Alkaline Phosphatase Total Protein Albumin Globulin Albumin/Globulin Ratio Urine Color Urine Clarity Urine pH Ur Specific [place] Urine Protein Urine Glucose (UA) Urine Ketones Urine Blood Urine Nitrate Urine Bilirubin Urine Urobilinogen Ur Leukocyte Esterase Urine RBC (Auto) Urine Microscopic WBC Ur Squamous Epith Cells Fluid Source Fluid Appearance Fluid WBC Fluid RBC Fluid Tot Cell Count Fluid Neutrophils Fluid Lymphocytes Fld Monocyte/Macrophag Fluid Glucose Fluid Total Protein Fluid LDH Fluid Comment Ur L.pneumophila Ag Mycoplasma pneumon IgM Crossmatch 10/11/17 10/11/17 10/11/17 16:51 21:53 21:55 WBC RBC Hgb Hct MCV MCH MCHC RDW Plt Count MPV Neut % (Auto) Lymph % (Auto) Young % (Auto) Eos % (Auto) Baso % (Auto) Neut # (Auto) Lymph # (Auto) Young # (Auto) Eos # (Auto) Baso # (Auto) Sodium Potassium Chloride Carbon Dioxide Anion Gap BUN Creatinine Est GFR ( Amer) Est GFR (Non-Af Amer) POC Glucose (mg/dL) 154 H 59 L 48 L Random Glucose Calcium Total Bilirubin AST ALT Alkaline Phosphatase Total Protein Albumin Globulin Albumin/Globulin Ratio Urine Color Urine Clarity Urine pH Ur Specific [place] Urine Protein Urine Glucose (UA) Urine Ketones Urine Blood Urine Nitrate Urine Bilirubin Urine Urobilinogen Ur Leukocyte Esterase Urine RBC (Auto) Urine Microscopic WBC Ur Squamous Epith Cells Fluid Source Fluid Appearance Fluid WBC Fluid RBC Fluid Tot Cell Count Fluid Neutrophils Fluid Lymphocytes Fld Monocyte/Macrophag Fluid Glucose Fluid Total Protein Fluid LDH Fluid Comment Ur L.pneumophila Ag Mycoplasma pneumon IgM Crossmatch 10/11/17 10/12/17 10/12/17 23:25 04:50 04:50 WBC 8.1 RBC 3.70 L Hgb 12.0 Hct 34.1 L MCV 92.2 MCH 32.5 H MCHC 35.3 RDW 13.6 Plt Count 217 MPV 7.6 Neut % (Auto) 67.2 Lymph % (Auto) 17.3 L Young % (Auto) 10.3 H Eos % (Auto) 4.8 H Baso % (Auto) 0.4 Neut # (Auto) 5.4 Lymph # (Auto) 1.4 Young # (Auto) 0.8 Eos # (Auto) 0.4 Baso # (Auto) 0.0 Sodium 139 Potassium 4.2 Chloride 100 Carbon Dioxide 33 H Anion Gap 10 BUN 34 H Creatinine 0.7 L Est GFR ( Amer) > 60 Est GFR (Non-Af Amer) > 60 POC Glucose (mg/dL) 143 H Random Glucose 83 Calcium 8.6 Total Bilirubin 1.2 AST 42 ALT 44 Alkaline Phosphatase 45 Total Protein 5.3 L Albumin 2.8 L Globulin 2.5 Albumin/Globulin Ratio 1.1 Urine Color Urine Clarity Urine pH Ur Specific [place] Urine Protein Urine Glucose (UA) Urine Ketones Urine Blood Urine Nitrate Urine Bilirubin Urine Urobilinogen Ur Leukocyte Esterase Urine RBC (Auto) Urine Microscopic WBC Ur Squamous Epith Cells Fluid Source Fluid Appearance Fluid WBC Fluid RBC Fluid Tot Cell Count Fluid Neutrophils Fluid Lymphocytes Fld Monocyte/Macrophag Fluid Glucose Fluid Total Protein Fluid LDH Fluid Comment Ur L.pneumophila Ag Mycoplasma pneumon IgM Crossmatch 10/12/17 10/12/17 06:00 11:36 WBC RBC Hgb Hct MCV MCH MCHC RDW Plt Count MPV Neut % (Auto) Lymph % (Auto) Young % (Auto) Eos % (Auto) Baso % (Auto) Neut # (Auto) Lymph # (Auto) Young # (Auto) Eos # (Auto) Baso # (Auto) Sodium Potassium Chloride Carbon Dioxide Anion Gap BUN Creatinine Est GFR ( Amer) Est GFR (Non-Af Amer) POC Glucose (mg/dL) 81 208 H Random Glucose Calcium Total Bilirubin AST ALT Alkaline Phosphatase Total Protein Albumin Globulin Albumin/Globulin Ratio Urine Color Urine Clarity Urine pH Ur Specific [place] Urine Protein Urine Glucose (UA) Urine Ketones Urine Blood Urine Nitrate Urine Bilirubin Urine Urobilinogen Ur Leukocyte Esterase Urine RBC (Auto) Urine Microscopic WBC Ur Squamous Epith Cells Fluid Source Fluid Appearance Fluid WBC Fluid RBC Fluid Tot Cell Count Fluid Neutrophils Fluid Lymphocytes Fld Monocyte/Macrophag Fluid Glucose Fluid Total Protein Fluid LDH Fluid Comment Ur L.pneumophila Ag Mycoplasma pneumon IgM Crossmatch Microbiology 10/10/17 16:30 Pleural Fluid Gram Stain - Final 10/10/17 16:30 Pleural Fluid Body Fluid Culture - Preliminary NO GROWTH AFTER 2 DAYS 10/09/17 15:00 Other: Please Indicate Gram Stain - Final 10/09/17 15:00 Other: Please Indicate Wound Culture - Final No growth. 10/09/17 15:00 Other: Please Indicate Gram Stain - Final 10/09/17 15:00 Other: Please Indicate Wound Culture - Final No growth. 10/07/17 16:35 Blood-Venous S.aureus & Coag-Neg Staph PNA FISH - Final 10/07/17 16:35 Blood-Venous Blood Culture - Final Coagulase Neg Staphylococcus 10/07/17 16:35 Blood-Venous Gram Stain - Final 10/10/17 11:17 Sputum Gram Stain - Final 10/10/17 11:17 Sputum Sputum Culture - Final Yeast Species 10/10/17 10:40 Blood-Venous Blood Culture - Preliminary NO GROWTH AFTER 48 HOURS 10/09/17 18:00 Blood-Venous Blood Culture - Preliminary NO GROWTH AFTER 48 HOURS 10/07/17 16:35 Blood-Venous Blood Culture - Preliminary NO GROWTH AFTER 4 DAYS Accession No. : [id number] Patient Name / ID : FATUMA ABREU / [id number] Exam Date : 10/12/2017 04:41:16 ( Approved ) Study Comment : Sex / Age : M / [id number] Creator : Delfin Billings MD Dictator : Delfin Billings MD Chain Puller : [employer] : Delfin Billings MD Approver2 : Report Date : 10/12/2017 07:29:05 My Comment : Date of service: 10/12/2017 PROCEDURE: CHEST RADIOGRAPH, 1 VIEW HISTORY: chest tube evalution COMPARISON: Portable chest 10/11/2016 4:17 a.m.. FINDINGS: Two left chest tubes unchanged in position. LUNGS: Linear atelectasis again identified right apex with prominent its reticular markings identified in the mid inferior left lung zone once again. No definite alveolitis bilaterally. PLEURA: No pneumothorax or pleural fluid seen. CARDIOVASCULAR: Normal. OSSEOUS STRUCTURES: No significant abnormalities. VISUALIZED UPPER ABDOMEN: Normal. OTHER FINDINGS: None. IMPRESSION: No pneumothorax bilaterally or pleural effusion. No definite alveolitis. Prominent markings are seen at the mid to inferior left lung zone with linear atelectasis or fibrosis right apex once again. Assessment and Plan (1) Pneumothorax Status: Acute (2) COPD exacerbation Status: Acute (3) Pulmonary nodules/lesions, multiple Status: Chronic (4) Leukocytosis Status: Resolved (5) Pulmonary emphysema Status: Chronic - Assessment and Plan (Free Text) Assessment: A/P- 76 year old male with multiple medical conditions including COPD, A.Fib, DM II s /p lung biopsy later developed pneumothorax s/p chest tuube 4 days ago , not improved and had developed left sided chest subcutaneous emphysema s/p 2 chest tubes 3 days ago afebrile leukocytosis resolved. blood cx from 10/07 - one out of 2 bottles reported coag neg staph ( most likely contaminant) OR cx- no growth mycoplas ma IGm- neg Urine legionellla Ag- Neg pleuralk fluid cx- neg sputum cx- yeast repeat blood cx- neg x 2 ( from 10/09 and 10/10/2017) Plan- the 1 out of 2 blood cx reported after 3 days and only on anaerobic bottle is most likely a contaminant. however since pt. has had multiple procedures started vanco , day #2. keep trough <20. advise 5 days of vanco. check TTE r/o veg. advise to continue with broad spectrum meropenem abx for nosocomial coverage pending further results. day #4 and can d/c it once chest tube is removed. advise to f/u lung biopsy result from [facility] as well.( await official path report ) All labs and imaging reviewed. ICU time 40 minutes.
--- NOTE | 2017-10-12 13:16 | CP.CCUPN ---
<Sultan Yudith - Last Filed: 10/12/17 15:40> CCU Subjective - Physician Review Subjective (Free Text): 10/12/17 13:08 Patient seen and examined this morning. Pt is breathing comfortably with 2 L NC oxygen, in no acute distress. Pt is s/p left anterior and posterior chest tube placement. Denies any shortness breath, chest pain or dizziness. Tolerating PO intake. + voiding and had BM this AM. Spoke with surgery resident Dr. Peterson this morning regarding initiation of lovenox at therapeutic dose for atrial fibrillation and she said patient can be started on lovenox at therapeutic dose. CCU Objective - Vital Signs / Intake & Output Vital Signs (Last 4 hours): Vital Signs Temp Pulse Resp BP Pulse Ox 10/12/17 12:00 97.8 F 87 18 119/59 L 99 Intake and Output (Last 8hrs): Intake & Output 10/11/17 10/12/17 10/12/17 22:59 06:59 14:59 Intake Total 560 0 100 Output Total 500 120 Balance 60 -120 100 Weight 68.039 kg Intake: IV 10 0 Intake, Piggyback 350 Oral 200 100 Output: Chest Tube Drainage 100 20 Left Anterior Chest 50 0 Left Posterior Chest 20 Left Upper Lateral Chest 50 Urine 400 100 Urine, Voided 400 100 - Physical Exam Head: Positive for: Atraumatic, Normocephalic Pupils: Positive for: PERRL Extroacular Muscles: Positive for: EOMI Conjunctiva: Positive for: Normal. Negative for: Icteric Mouth: Positive for: Moist Mucous Membranes Neck: Positive for: Normal Range of Motion, Trachea Midline Respiratory/Chest: Positive for: Good Air Exchange, Decreased Breath Sounds, Other (left anterior and posterior chest tube in place, draining serosanguineous fluids.). Negative for: Respiratory Distress, Accessory Muscle Use, Rales Cardiovascular: Positive for: Irregular Rhythm, Peripheal Pulses Present. Negative for: Murmurs, Normal S1, S2 Abdomen: Positive for: Normal Bowel Sounds. Negative for: Tenderness, Distention Upper Extremity: Positive for: Normal Inspection. Negative for: Edema Lower Extremity: Positive for: Normal Inspection, NORMAL PULSES. Negative for: Edema, CALF TENDERNESS Neurological: Positive for: Speech Normal, Motor Func Grossly Intact, Normal Sensory Function Skin: Positive for: Warm, Normal Color. Negative for: Rashes Psychiatric: Positive for: Alert, Oriented x 3 - Medications Active Medications: Active Medications Generic Name Dose Route Start Last Admin Trade Name Freq PRN Reason Stop Dose Admin Albuterol/Ipratropium 3 ml 10/08/17 12:00 10/12/17 11:19 Duoneb 3 Mg/0.5 Mg (3 Ml) Ud INH 3 ml RQID ULISES Administration Atorvastatin Calcium 40 mg 10/07/17 21:00 10/11/17 21:56 Lipitor PO 40 mg DAILY@2100 ULISES Administration Dextrose 0 ml 10/07/17 19:49 Dextrose 50% Inj IV STAT PRN Hypoglycemia Protocol Protocol Dextrose 0 gm 10/07/17 19:49 Glutose 15 PO ONCE PRN Hypoglycemia Protocol Protocol Enoxaparin Sodium 70 mg 10/12/17 21:00 Lovenox SC Q12 ULISES Protocol Famotidine 20 mg 10/08/17 13:15 10/12/17 08:59 Pepcid PO 20 mg DAILY ULISES Administration Finasteride 5 mg 10/08/17 09:00 10/12/17 08:57 Proscar PO 5 mg DAILY ULISES Administration Gabapentin 300 mg 10/07/17 22:00 10/11/17 21:57 Neurontin PO 300 mg HS ULISES Administration Glucagon 0 mg 10/07/17 19:49 Glucagen Diagnostic Kit IM STAT PRN Hypoglycemia Protocol Protocol Hydrochlorothiazide 12.5 mg 10/08/17 09:00 10/08/17 14:04 Microzide PO Not Given DAILY ULISES Meropenem 1 gm/ Sodium 100 mls @ 100 mls/hr 10/09/17 21:00 10/12/17 08:55 Chloride IVPB 100 mls/hr Q12 ULISES Administration Protocol Vancomycin HCl 750 mg/ Sodium 250 mls @ 166.667 mls/hr 10/10/17 21:00 08:59 Chloride IVPB 166.667 mls/hr Q12 ULISES Administration Protocol Insulin Detemir 10 units 10/07/17 22:00 10/11/17 21:57 Levemir SC Not Given HS ULISES Insulin Human Regular 0 units 10/11/17 13:17 10/12/17 08:00 Humulin R SC Not Given ACHS ULISES Protocol Levalbuterol HCl 0.63 mg 10/08/17 09:07 10/08/17 13:00 Xopenex INH 0.63 mg RQ4 PRN Administration Shortness of Breath Losartan Potassium 50 mg 10/08/17 09:00 10/12/17 08:53 Cozaar PO 50 mg DAILY ULISES Administration Morphine Sulfate 2 mg 10/10/17 09:12 10/12/17 06:28 Morphine IVP 2 mg Q4 PRN Administration Pain, moderate (4-7) Morphine Sulfate 4 mg 10/10/17 16:50 10/11/17 21:50 Morphine IVP 4 mg Q4 PRN Administration Pain, severe (8-10) Ondansetron HCl 4 mg 10/09/17 15:01 Zofran Inj IVP Q6 PRN Nausea/Vomiting Oxycodone HCl 5 mg 10/09/17 16:27 10/11/17 10:05 Oxycodone Immediate Release Tab PO 5 mg Q6 PRN Administration Pain, Mild (1-3) Repaglinide 1 mg 10/12/17 16:30 Prandin PO TIDAC ULISES Senna/Docusate Sodium 2 tab 10/10/17 22:00 10/11/17 21:57 Senokot S 50 Mg-8.6 Mg PO 2 tab HS ULISES Administration - Patient Studies Lab Studies: Microbiology Studies 10/07/17 16:35 S.aureus & Coag-Neg Staph PNA FISH - Final Blood-Venous Blood Culture - Final Coagulase Neg Staphylococcus Gram Stain - Final 10/10/17 11:17 Gram Stain - Final Sputum Sputum Culture - Final Yeast Species 10/10/17 10:40 Blood Culture - Preliminary Blood-Venous NO GROWTH AFTER 48 HOURS 10/10/17 16:30 Gram Stain - Final Pleural Fluid Body Fluid Culture - Preliminary NO GROWTH AFTER 24 HOURS 10/09/17 18:00 Blood Culture - Preliminary Blood-Venous NO GROWTH AFTER 48 HOURS 10/07/17 16:35 Blood Culture - Preliminary Blood-Venous NO GROWTH AFTER 4 DAYS 10/09/17 15:00 Gram Stain - Final Other: Please Indicate Wound Culture - Preliminary No growth. 10/09/17 15:00 Gram Stain - Final Other: Please Indicate Wound Culture - Preliminary No growth. Lab Studies 10/12/17 10/12/17 10/12/17 Range/Units 11:36 06:00 04:50 WBC 8.1 (4.8-10.8) K/uL RBC 3.70 L (4.40-5.90) Mil/uL Hgb 12.0 (12.0-18.0) g/dL Hct 34.1 L (35.0-51.0) % MCV 92.2 (80.0-94.0) fl MCH 32.5 H (27.0-31.0) pg MCHC 35.3 (33.0-37.0) g/dL RDW 13.6 (11.5-14.5) % Plt Count 217 (130-400) K/uL MPV 7.6 (7.2-11.7) fl Neut % (Auto) 67.2 (50.0-75.0) % Lymph % (Auto) 17.3 L (20.0-40.0) % [place] % (Auto) 10.3 H (0.0-10.0) % Eos % (Auto) 4.8 H (0.0-4.0) % Baso % (Auto) 0.4 (0.0-2.0) % Neut # (Auto) 5.4 (1.8-7.0) K/uL Lymph # (Auto) 1.4 (1.0-4.3) K/uL [place] # (Auto) 0.8 (0.0-0.8) K/uL Eos # (Auto) 0.4 (0.0-0.7) K/uL Baso # (Auto) 0.0 (0.0-0.2) K/uL Sodium (132-148) mmol/l Potassium (3.6-5.0) MMOL/L Chloride (98-107) mmol/L Carbon Dioxide (22-30) mmol/L Anion Gap (10-20) BUN (9-20) mg/dl Creatinine (0.8-1.5) mg/dl Est GFR ( Amer) Est GFR (Non-Af Amer) POC Glucose (mg/dL) 208 H 81 (65-110) mg/dL Random Glucose (75-110) mg/dL Calcium (8.4-10.2) mg/dL Total Bilirubin (0.2-1.3) mg/dl AST (17-59) U/L ALT (21-72) U/L Alkaline Phosphatase (38-126) U/L Total Protein (6.3-8.2) G/DL Albumin (3.5-5.0) g/dL Globulin (2.2-3.9) gm/dL Albumin/Globulin Ratio (1.0-2.1) 10/12/17 10/11/17 10/11/17 Range/Units 04:50 23:25 21:55 WBC (4.8-10.8) K/uL RBC (4.40-5.90) Mil/uL Hgb (12.0-18.0) g/dL Hct (35.0-51.0) % MCV (80.0-94.0) fl MCH (27.0-31.0) pg MCHC (33.0-37.0) g/dL RDW (11.5-14.5) % Plt Count (130-400) K/uL MPV (7.2-11.7) fl Neut % (Auto) (50.0-75.0) % Lymph % (Auto) (20.0-40.0) % [place] % (Auto) (0.0-10.0) % Eos % (Auto) (0.0-4.0) % Baso % (Auto) (0.0-2.0) % Neut # (Auto) (1.8-7.0) K/uL Lymph # (Auto) (1.0-4.3) K/uL [place] # (Auto) (0.0-0.8) K/uL Eos # (Auto) (0.0-0.7) K/uL Baso # (Auto) (0.0-0.2) K/uL Sodium 139 (132-148) mmol/l Potassium 4.2 (3.6-5.0) MMOL/L Chloride 100 (98-107) mmol/L Carbon Dioxide 33 H (22-30) mmol/L Anion Gap 10 (10-20) BUN 34 H (9-20) mg/dl Creatinine 0.7 L (0.8-1.5) mg/dl Est GFR ( Amer) > 60 Est GFR (Non-Af Amer) > 60 POC Glucose (mg/dL) 143 H 48 L (65-110) mg/dL Random Glucose 83 (75-110) mg/dL Calcium 8.6 (8.4-10.2) mg/dL Total Bilirubin 1.2 (0.2-1.3) mg/dl AST 42 (17-59) U/L ALT 44 (21-72) U/L Alkaline Phosphatase 45 (38-126) U/L Total Protein 5.3 L (6.3-8.2) G/DL Albumin 2.8 L (3.5-5.0) g/dL Globulin 2.5 (2.2-3.9) gm/dL Albumin/Globulin Ratio 1.1 (1.0-2.1) 10/11/17 10/11/17 10/11/17 Range/Units 21:53 16:51 12:16 WBC (4.8-10.8) K/uL RBC (4.40-5.90) Mil/uL Hgb (12.0-18.0) g/dL Hct (35.0-51.0) % MCV (80.0-94.0) fl MCH (27.0-31.0) pg MCHC (33.0-37.0) g/dL RDW (11.5-14.5) % Plt Count (130-400) K/uL MPV (7.2-11.7) fl Neut % (Auto) (50.0-75.0) % Lymph % (Auto) (20.0-40.0) % [place] % (Auto) (0.0-10.0) % Eos % (Auto) (0.0-4.0) % Baso % (Auto) (0.0-2.0) % Neut # (Auto) (1.8-7.0) K/uL Lymph # (Auto) (1.0-4.3) K/uL [place] # (Auto) (0.0-0.8) K/uL Eos # (Auto) (0.0-0.7) K/uL Baso # (Auto) (0.0-0.2) K/uL Sodium (132-148) mmol/l Potassium (3.6-5.0) MMOL/L Chloride (98-107) mmol/L Carbon Dioxide (22-30) mmol/L Anion Gap (10-20) BUN (9-20) mg/dl Creatinine (0.8-1.5) mg/dl Est GFR ( Amer) Est GFR (Non-Af Amer) POC Glucose (mg/dL) 59 L 154 H 266 H (65-110) mg/dL Random Glucose (75-110) mg/dL Calcium (8.4-10.2) mg/dL Total Bilirubin (0.2-1.3) mg/dl AST (17-59) U/L ALT (21-72) U/L Alkaline Phosphatase (38-126) U/L Total Protein (6.3-8.2) G/DL Albumin (3.5-5.0) g/dL Globulin (2.2-3.9) gm/dL Albumin/Globulin Ratio (1.0-2.1) Laboratory Results - last 24 hr 10/11/17 10/11/17 10/11/17 12:16 16:51 21:53 WBC RBC Hgb Hct MCV MCH MCHC RDW Plt Count MPV Neut % (Auto) Lymph % (Auto) [place] % (Auto) Eos % (Auto) Baso % (Auto) Neut # (Auto) Lymph # (Auto) [place] # (Auto) Eos # (Auto) Baso # (Auto) Sodium Potassium Chloride Carbon Dioxide Anion Gap BUN Creatinine Est GFR ( Amer) Est GFR (Non-Af Amer) POC Glucose (mg/dL) 266 H 154 H 59 L Random Glucose Calcium Total Bilirubin AST ALT Alkaline Phosphatase Total Protein Albumin Globulin Albumin/Globulin Ratio 10/11/17 10/11/17 10/12/17 21:55 23:25 04:50 WBC RBC Hgb Hct MCV MCH MCHC RDW Plt Count MPV Neut % (Auto) Lymph % (Auto) [place] % (Auto) Eos % (Auto) Baso % (Auto) Neut # (Auto) Lymph # (Auto) [place] # (Auto) Eos # (Auto) Baso # (Auto) Sodium 139 Potassium 4.2 Chloride 100 Carbon Dioxide 33 H Anion Gap 10 BUN 34 H Creatinine 0.7 L Est GFR ( Amer) > 60 Est GFR (Non-Af Amer) > 60 POC Glucose (mg/dL) 48 L 143 H Random Glucose 83 Calcium 8.6 Total Bilirubin 1.2 AST 42 ALT 44 Alkaline Phosphatase 45 Total Protein 5.3 L Albumin 2.8 L Globulin 2.5 Albumin/Globulin Ratio 1.1 10/12/17 10/12/17 10/12/17 04:50 06:00 11:36 WBC 8.1 RBC 3.70 L Hgb 12.0 Hct 34.1 L MCV 92.2 MCH 32.5 H MCHC 35.3 RDW 13.6 Plt Count 217 MPV 7.6 Neut % (Auto) 67.2 Lymph % (Auto) 17.3 L [place] % (Auto) 10.3 H Eos % (Auto) 4.8 H Baso % (Auto) 0.4 Neut # (Auto) 5.4 Lymph # (Auto) 1.4 [place] # (Auto) 0.8 Eos # (Auto) 0.4 Baso # (Auto) 0.0 Sodium Potassium Chloride Carbon Dioxide Anion Gap BUN Creatinine Est GFR ( Amer) Est GFR (Non-Af Amer) POC Glucose (mg/dL) 81 208 H Random Glucose Calcium Total Bilirubin AST ALT Alkaline Phosphatase Total Protein Albumin Globulin Albumin/Globulin Ratio Fingerstick Blood Sugar Results: 81 Review of Systems - Review of Systems All systems: reviewed and no additional remarkable complaints except (as mentioned in HPI) Critical Care Progress Note - Nutrition Nutrition: Nutrition Category Date Time Status Heart Healthy Diet [DIET] Diets 10/09/17 Lunch Active Assessment/Plan - Assessment and Plan (Free Text) Assessment: 76 yo male with PMHx of HTN, Hypercholesterolemia, Atrial Fibrillation, COPD, Chronic Kidney Disease and multiple pulmonary nodules S/P HAYDE biopsy on 10/04, developed left sided pneumothorax s/p left anterior chest tube placement on and left posterior chest tube placement on 10/09/17, was on high flow oxygen for shortness of breath for 2 days, currently on 2L NC oxygen breathing comfortably. Pulmonary: -Left sided pneumothorax s/p left anterior and posterior chest tube placement -Mild drainage of serosanguineous fluids(posterior>anterior) -Dyspnea improved with high 2L NC oxygen, saturating well >98% -Chest x-ray on 10/11/17: No pneumothorax -Chronic obstructive lung disease: continue with current management. -Continue to monitor Cardiovascular: -Dr. Last on board -Atrial fibrillation, stable -Hypertension: Controlled. Continue with losartan 50 mg po daily. -Start Lovenox 70 mg SC Q12 hr Hematology: -Leukocytosis resolved. Endocrine: -Diabetes mellitus II -Well controlled (HbA1c 7.7 on 05/2017) -Continue with current management GI: No acute issues -Continue with GI prophylaxis ID: -Dr. Luna on board -On meropenem 1 gm IVPB q12 and vancomycin 750 mg q12 -Blood cx on 10/07/17: coagulase negative staph -Sputum cx on 10/10/17: yeast species -Blood cx: no growth so far. DVT proph - pt is on therapeutic lovenox for atrial fibrillation GI proph -famotidine 20 mg po daily Code status - full code <MaximoRaghav Marietta - Last Filed: 10/12/17 15:58> CCU Subjective - Physician Review Subjective (Free Text): Attestation: Patient seen and examined at the bedside with Resident Dr. Tom Zurita; and I agree with his outline of plans and management documented below as discussed on AM rounds reflecting my review of all applicable clinical data, and participation in the care of the patient throughout the day in ICU; today, October 12, 2017.
--- NOTE | 2017-10-12 14:03 | CP.PCM.PN ---
Subjective - Date & Time of Evaluation Date of Evaluation: 10/12/17 Time of Evaluation: 13:59 - Subjective Subjective: Pt s/e. vss/ wbc: 8k chest tubes: 120 cc/y serosanguineoump /no air leak. cxr-No pneumothorax. a/P: 1. Progessing well.Contine 2.Continue chest tube to suction. 3. Management plan d/w Dr Faith and residents. Objective - Vital Signs/Intake and Output Vital Signs (last 24 hours): Temp Pulse Resp BP Pulse Ox 97.8 F 87 18 119/59 L 99 10/12/17 12:00 10/12/17 12:00 10/12/17 12:00 10/12/17 12:00 10/12/17 12:00 Intake and Output: 10/12/17 10/12/17 06:59 18:59 Intake Total 550 600 Output Total 520 Balance 30 600 - Medications Medications: Current Medications Albuterol/Ipratropium (Duoneb 3 Mg/0.5 Mg (3 Ml) Ud) 3 ml INH RQID [facility] Last Admin: 10/12/17 11:19 Dose: 3 ml Atorvastatin Calcium (Lipitor) 40 mg PO DAILY@2100 [facility] Last Admin: 10/11/17 21:56 Dose: 40 mg Dextrose (Dextrose 50% Inj) 0 ml IV STAT PRN; Protocol PRN Reason: Hypoglycemia Protocol Dextrose (Glutose 15) 0 gm PO ONCE PRN; Protocol PRN Reason: Hypoglycemia Protocol Enoxaparin Sodium (Lovenox) 70 mg SC Q12 ULISES PRN Reason: Protocol Famotidine (Pepcid) 20 mg PO DAILY [facility] Last Admin: 10/12/17 08:59 Dose: 20 mg Finasteride (Proscar) 5 mg PO DAILY [facility] Last Admin: 10/12/17 08:57 Dose: 5 mg Gabapentin (Neurontin) 300 mg PO HS [facility] Last Admin: 10/11/17 21:57 Dose: 300 mg Glucagon (Glucagen Diagnostic Kit) 0 mg IM STAT PRN; Protocol PRN Reason: Hypoglycemia Protocol Hydrochlorothiazide (Microzide) 12.5 mg PO DAILY [facility] Last Admin: 10/08/17 14:04 Dose: Not Given Meropenem 1 gm/ Sodium (Chloride) 100 mls @ 100 mls/hr IVPB Q12 ULISES PRN Reason: Protocol Last Admin: 10/12/17 08:55 Dose: 100 mls/hr Vancomycin HCl 750 mg/ Sodium (Chloride) 250 mls @ 166.667 mls/hr IVPB Q12 [facility] PRN Reason: Protocol Last Admin: 10/12/17 08:59 Dose: 166.667 mls/hr Insulin Detemir (Levemir) 10 units SC HS [facility] Last Admin: 10/11/17 21:57 Dose: Not Given Insulin Human Regular (Humulin R) 0 units SC ACHS [facility] PRN Reason: Protocol Last Admin: 10/12/17 08:00 Dose: Not Given Levalbuterol HCl (Xopenex) 0.63 mg INH RQ4 PRN PRN Reason: Shortness of Breath Last Admin: 10/08/17 13:00 Dose: 0.63 mg Losartan Potassium (Cozaar) 50 mg PO DAILY [facility] Last Admin: 10/12/17 08:53 Dose: 50 mg Morphine Sulfate (Morphine) 2 mg IVP Q4 PRN PRN Reason: Pain, moderate (4-7) Last Admin: 10/12/17 06:28 Dose: 2 mg Morphine Sulfate (Morphine) 4 mg IVP Q4 PRN PRN Reason: Pain, severe (8-10) Last Admin: 10/11/17 21:50 Dose: 4 mg Ondansetron HCl (Zofran Inj) 4 mg IVP Q6 PRN PRN Reason: Nausea/Vomiting Oxycodone HCl (Oxycodone Immediate Release Tab) 5 mg PO Q6 PRN PRN Reason: Pain, Mild (1-3) Last Admin: 10/11/17 10:05 Dose: 5 mg Repaglinide (Prandin) 1 mg PO TIDAC [facility] Senna/Docusate Sodium (Senokot S 50 Mg-8.6 Mg) 2 tab PO [facility] Last Admin: 10/11/17 21:57 Dose: 2 tab - Labs Labs: 10/12/17 04:50 10/12/17 04:50 PT 13.3 Seconds (9.8-13.1) H 10/07/17 16:35 INR 1.2 10/07/17 16:35 APTT 34.1 Seconds (25.6-37.1) 10/07/17 16:35
[2017-10-12] MEDS: Enoxaparin 80 mg Syringe SC SCH (20:16)
[2017-10-12] MEDS: Docusate-Senna 50 mg-8.6 mg Tab PO SCH (21:00)
[2017-10-12] MEDS: Insulin Detemir 100 Units/ml Inj SC SCH (21:18)
[2017-10-13 05:42] LABS: HEMOGLOBIN 12.8 g/dL (12.0-18.0); MEAN CELL VOLUME 92.9 fl (80.0-94.0); MEAN CORPUSCULAR HEMOGLOBIN 32.2 pg (27.0-31.0); MEAN CORPUSCULAR HGB CONC 34.6 g/dL (33.0-37.0); RBC 3.97 Mil/uL (4.40-5.90); RED CELL DISTRIBUTION WIDTH 13.3 % (11.5-14.5); WHITE BLOOD COUNT 9.1 K/uL (4.8-10.8)
[2017-10-13 05:52] LABS: ALB/GLOB RATIO 1.3 (1.0-2.1); ALBUMIN 3.3 g/dL (3.5-5.0); ALT/SGPT 41 U/L (21-72); AST/SGOT 40 U/L (17-59); BLOOD UREA NITROGEN 29 mg/dl (9-20); CALCIUM 9.2 mg/dL (8.4-10.2); GFR AFRICAN-AMERICAN > 60; GFR NON-AFRICAN AMERICAN > 60
[2017-10-13] MEDS: Insulin Regular 100 units/ml SC SCH ×4 (06:41→22:30)
[2017-10-13 06:50] LABS: URINE BILIRUBIN NEGATIVE (NEGATIVE); URINE BLOOD NEGATIVE (NEGATIVE); URINE CLARITY SLIGHTY-CLOUDY (Clear); URINE COLOR YELLOW (YELLOW); URINE GLUCOSE (UA) 150 mg/dL (Normal); URINE LEUKOCYTE ESTERASE NEG Leu/uL (Negative); URINE PROTEIN NEGATIVE (NEGATIVE); URINE UROBILINOGEN 0.2-1.0 mg/dL (0.2-1.0)
[2017-10-13] MEDS: Albuterol-Ipratrop 3 mg / 0.5 (3 ml) UD INH SCH ×3 (08:02→16:02)
--- NOTE | 2017-10-13 08:11 | RAD ---
Date of service: 10/13/2017 PROCEDURE: CHEST RADIOGRAPH, 1 VIEW HISTORY: chest tube evaluation COMPARISON: Portable chest 10/12/2017 4:43 a.m.. FINDINGS: Stable left chest is identified with no visible pneumothorax appreciable bilaterally. LUNGS: No definite infiltrate. Pulmonary fibrotic changes/ COPD reiterated. PLEURA: No pleural effusion bilaterally. No pneumothorax as discussed above. CARDIOVASCULAR: Normal. OSSEOUS STRUCTURES: No significant abnormalities. VISUALIZED UPPER ABDOMEN: Normal. OTHER FINDINGS: Diminished left chest wall emphysematous change. IMPRESSION: Stable left chest tubes in position with no pneumothorax. Diminishing left chest wall emphysema. COPD/fibrotic changes again identified bilaterally.
[2017-10-13] MEDS: Enoxaparin 80 mg Syringe SC SCH ×2 (08:30→20:46)
[2017-10-13] MEDS: Meropenem 1 GM in Sodium Chloride 0.9% 100 ML IVPB SCH ×2 (08:31→20:45)
--- NOTE | 2017-10-13 08:35 | CP.PCM.PN ---
Subjective - Date & Time of Evaluation Date of Evaluation: 10/13/17 Time of Evaluation: 08:33 - Subjective Subjective: CT surgery progress note for Dr. Apple Garcia, PGY-2 Pt S & E at bedside at 0730 Pt reports sleeping well throughout the night. Pain at CT insertion sites well controlled. Tolerating diet. Denies SOB, CP, N & V, F & C, other complaints. Is getting OOBTC. Anterior CT with 60, Posterior CT with 130cc serosanguinous output over 24 Hrs . No airleaks noted. Objective - Vital Signs/Intake and Output Vital Signs (last 24 hours): Temp Pulse Resp BP Pulse Ox 98.7 F 87 20 144/72 99 10/13/17 08:00 10/13/17 08:30 10/13/17 08:00 10/13/17 08:30 10/13/17 08:00 Intake and Output: 10/13/17 10/13/17 06:59 18:59 Intake Total 482 100 Output Total 825 Balance -343 100 - Medications Medications: Current Medications Albuterol/Ipratropium (Duoneb 3 Mg/0.5 Mg (3 Ml) Ud) 3 ml INH RQID [facility] Last Admin: 10/13/17 08:02 Dose: 3 ml Atorvastatin Calcium (Lipitor) 40 mg PO DAILY@2100 [facility] Last Admin: 10/12/17 20:16 Dose: 40 mg Dextrose (Dextrose 50% Inj) 0 ml IV STAT PRN; Protocol PRN Reason: Hypoglycemia Protocol Dextrose (Glutose 15) 0 gm PO ONCE PRN; Protocol PRN Reason: Hypoglycemia Protocol Enoxaparin Sodium (Lovenox) 70 mg SC Q12 [facility]ISES PRN Reason: Protocol Last Admin: 10/12/17 20:16 Dose: 70 mg Famotidine (Pepcid) 20 mg PO DAILY [facility] Last Admin: 10/12/17 08:59 Dose: 20 mg Finasteride (Proscar) 5 mg PO DAILY [facility] Last Admin: 10/12/17 08:57 Dose: 5 mg Gabapentin (Neurontin) 300 mg PO HS [facility] Last Admin: 10/12/17 21:00 Dose: 300 mg Glucagon (Glucagen Diagnostic Kit) 0 mg IM STAT PRN; Protocol PRN Reason: Hypoglycemia Protocol Hydrochlorothiazide (Microzide) 12.5 mg PO DAILY [facility] Last Admin: 10/08/17 14:04 Dose: Not Given Meropenem 1 gm/ Sodium (Chloride) 100 mls @ 100 mls/hr IVPB Q12 [facility] PRN Reason: Protocol Last Admin: 10/12/17 20:17 Dose: 100 mls/hr Vancomycin HCl 750 mg/ Sodium (Chloride) 250 mls @ 166.667 mls/hr IVPB Q12 [facility] PRN Reason: Protocol Last Admin: 10/12/17 20:20 Dose: 166.667 mls/hr Insulin Detemir (Levemir) 10 units SC [facility] Last Admin: 10/12/17 21:18 Dose: 10 units Insulin Human Regular (Humulin R) 0 units SC [facility] PRN Reason: Protocol Last Admin: 10/13/17 06:41 Dose: Not Given Levalbuterol HCl (Xopenex) 0.63 mg INH RQ4 PRN PRN Reason: Shortness of Breath Last Admin: 10/08/17 13:00 Dose: 0.63 mg Losartan Potassium (Cozaar) 50 mg PO DAILY [facility] Last Admin: 10/12/17 08:53 Dose: 50 mg Morphine Sulfate (Morphine) 2 mg IVP Q4 PRN PRN Reason: Pain, moderate (4-7) Last Admin: 10/13/17 05:00 Dose: 2 mg Morphine Sulfate (Morphine) 4 mg IVP Q4 PRN PRN Reason: Pain, severe (8-10) Last Admin: 10/11/17 21:50 Dose: 4 mg Ondansetron HCl (Zofran Inj) 4 mg IVP Q6 PRN PRN Reason: Nausea/Vomiting Oxycodone HCl (Oxycodone Immediate Release Tab) 5 mg PO Q6 PRN PRN Reason: Pain, Mild (1-3) Last Admin: 10/11/17 10:05 Dose: 5 mg Repaglinide (Prandin) 1 mg PO TIDAC [facility] Last Admin: 10/13/17 06:41 Dose: 1 mg Senna/Docusate Sodium (Senokot S 50 Mg-8.6 Mg) 2 tab PO HS [facility] Last Admin: 10/12/17 21:00 Dose: 2 tab - Labs Labs: 10/13/17 05:15 10/13/17 05:15 PT 13.3 Seconds (9.8-13.1) H 10/07/17 16:35 INR 1.2 10/07/17 16:35 APTT 34.1 Seconds (25.6-37.1) 10/07/17 16:35 - Constitutional Appears: Non-toxic, No Acute Distress - Head Exam Head Exam: ATRAUMATIC, NORMAL INSPECTION, NORMOCEPHALIC - Eye Exam Eye Exam: EOMI, Normal appearance - ENT Exam ENT Exam: Mucous Membranes Moist, Normal Exam - Neck Exam Neck Exam: Full ROM, Normal Inspection - Respiratory Exam Respiratory Exam: NORMAL BREATHING PATTERN. absent: Chest Wall Tenderness Additional comments: left chest wall with dressings - clean/dry/intact - Cardiovascular Exam Cardiovascular Exam: REGULAR RHYTHM, +S1, +S2 - GI/Abdominal Exam GI & Abdominal Exam: Soft. absent: Distended, Firm, Guarding, Tenderness - Neurological Exam Neurological Exam: Alert, Awake, CN II-XII Intact, Oriented x3 - Psychiatric Exam Psychiatric exam: Normal Affect, Normal Mood - Skin Skin Exam: Dry, Intact, Normal Color, Warm Assessment and Plan - Assessment and Plan (Free Text) Assessment: 76M w/L pneumothorax POD#4 s/p CT insertion x 2 Plan: Cont daily CXR Pain control PRN Encourage IS use OOBTC Plan for CT scan, maybe next Monday PLan to clamp tubes x 24Hrs on Monday d/c tubes on Monday Will ALEXANDRO attending Radha, PGY-2
--- NOTE | 2017-10-13 09:16 | CP.PCM.PN ---
Subjective - Date & Time of Evaluation Date of Evaluation: 10/13/17 Time of Evaluation: 08:00 - Subjective Subjective: Slept well. surgical pain much controlled Spent most of his day OOB yesterday Afebrile with A Fib at 80-90 BPM BP 126/70 mm HG No signs of vol overload Labs show: azotemia has resolved Pt has been restarted on anticoagulation (lovenox) Objective - Vital Signs/Intake and Output Vital Signs (last 24 hours): Temp Pulse Resp BP Pulse Ox 98.7 F 87 20 144/72 99 10/13/17 08:00 10/13/17 08:30 10/13/17 08:00 10/13/17 08:30 10/13/17 08:00 Intake and Output: 10/13/17 10/13/17 06:59 18:59 Intake Total 482 100 Output Total 825 Balance -343 100 - Medications Medications: Current Medications Albuterol/Ipratropium (Duoneb 3 Mg/0.5 Mg (3 Ml) Ud) 3 ml INH RQID [facility] Last Admin: 10/13/17 08:02 Dose: 3 ml Atorvastatin Calcium (Lipitor) 40 mg PO DAILY@2100 [facility] Last Admin: 10/12/17 20:16 Dose: 40 mg Dextrose (Dextrose 50% Inj) 0 ml IV STAT PRN; Protocol PRN Reason: Hypoglycemia Protocol Dextrose (Glutose 15) 0 gm PO ONCE PRN; Protocol PRN Reason: Hypoglycemia Protocol Enoxaparin Sodium (Lovenox) 70 mg SC Q12 [facility] PRN Reason: Protocol Last Admin: 10/13/17 08:30 Dose: 70 mg Famotidine (Pepcid) 20 mg PO DAILY [facility] Last Admin: 10/13/17 08:32 Dose: 20 mg Finasteride (Proscar) 5 mg PO DAILY [facility] Last Admin: 10/13/17 08:33 Dose: 5 mg Gabapentin (Neurontin) 300 mg PO HS [facility] Last Admin: 10/12/17 21:00 Dose: 300 mg Glucagon (Glucagen Diagnostic Kit) 0 mg IM STAT PRN; Protocol PRN Reason: Hypoglycemia Protocol Hydrochlorothiazide (Microzide) 12.5 mg PO DAILY [facility] Last Admin: 10/08/17 14:04 Dose: Not Given Meropenem 1 gm/ Sodium (Chloride) 100 mls @ 100 mls/hr IVPB Q12 [facility] PRN Reason: Protocol Last Admin: 10/13/17 08:31 Dose: 100 mls/hr Vancomycin HCl 750 mg/ Sodium (Chloride) 250 mls @ 166.667 mls/hr IVPB Q12 [facility] PRN Reason: Protocol Last Admin: 10/12/17 20:20 Dose: 166.667 mls/hr Insulin Detemir (Levemir) 10 units SC HS [facility] Last Admin: 10/12/17 21:18 Dose: 10 units Insulin Human Regular (Humulin R) 0 units SC ACHS [facility] PRN Reason: Protocol Last Admin: 10/13/17 06:41 Dose: Not Given Levalbuterol HCl (Xopenex) 0.63 mg INH RQ4 PRN PRN Reason: Shortness of Breath Last Admin: 10/08/17 13:00 Dose: 0.63 mg Losartan Potassium (Cozaar) 50 mg PO DAILY [facility] Last Admin: 10/13/17 08:30 Dose: 50 mg Morphine Sulfate (Morphine) 2 mg IVP Q4 PRN PRN Reason: Pain, moderate (4-7) Last Admin: 10/13/17 05:00 Dose: 2 mg Morphine Sulfate (Morphine) 4 mg IVP Q4 PRN PRN Reason: Pain, severe (8-10) Last Admin: 10/11/17 21:50 Dose: 4 mg Ondansetron HCl (Zofran Inj) 4 mg IVP Q6 PRN PRN Reason: Nausea/Vomiting Oxycodone HCl (Oxycodone Immediate Release Tab) 5 mg PO Q6 PRN PRN Reason: Pain, Mild (1-3) Last Admin: 10/11/17 10:05 Dose: 5 mg Repaglinide (Prandin) 1 mg PO TIDAC [facility] Last Admin: 10/13/17 06:41 Dose: 1 mg Senna/Docusate Sodium (Senokot S 50 Mg-8.6 Mg) 2 tab PO [facility] Last Admin: 10/12/17 21:00 Dose: 2 tab - Labs Labs: 10/13/17 05:15 10/13/17 05:15 PT 13.3 Seconds (9.8-13.1) H 10/07/17 16:35 INR 1.2 10/07/17 16:35 APTT 34.1 Seconds (25.6-37.1) 10/07/17 16:35
--- NOTE | 2017-10-13 09:36 | CP.PCM.PN ---
Subjective - Date & Time of Evaluation Date of Evaluation: 10/13/17 Time of Evaluation: 09:34 - Subjective Subjective: Patient seen and examined. Granddaughter at bedside. He endorses having an appetite and sleeping well last night. He is still with pain at chest tube insertion sites, but improving. He states that he had a BM last night, and has been ambulating from bed to chair. He denies SOB, chest pain, palpitations, dizziness, n/v. Objective - Vital Signs/Intake and Output Vital Signs (last 24 hours): Temp Pulse Resp BP Pulse Ox 98.7 F 87 20 144/72 99 10/13/17 08:00 10/13/17 08:30 10/13/17 08:00 10/13/17 08:30 10/13/17 08:00 Intake and Output: 10/13/17 10/13/17 06:59 18:59 Intake Total 482 100 Output Total 825 Balance -343 100 - Medications Medications: Current Medications Albuterol/Ipratropium (Duoneb 3 Mg/0.5 Mg (3 Ml) Ud) 3 ml INH RQID [facility] Last Admin: 10/13/17 08:02 Dose: 3 ml Atorvastatin Calcium (Lipitor) 40 mg PO DAILY@2100 [facility] Last Admin: 10/12/17 20:16 Dose: 40 mg Dextrose (Dextrose 50% Inj) 0 ml IV STAT PRN; Protocol PRN Reason: Hypoglycemia Protocol Dextrose (Glutose 15) 0 gm PO ONCE PRN; Protocol PRN Reason: Hypoglycemia Protocol Enoxaparin Sodium (Lovenox) 70 mg SC Q12 [facility] PRN Reason: Protocol Last Admin: 10/13/17 08:30 Dose: 70 mg Famotidine (Pepcid) 20 mg PO DAILY [facility] Last Admin: 10/13/17 08:32 Dose: 20 mg Finasteride (Proscar) 5 mg PO DAILY [facility] Last Admin: 10/13/17 08:33 Dose: 5 mg Gabapentin (Neurontin) 300 mg PO HS [facility] Last Admin: 10/12/17 21:00 Dose: 300 mg Glucagon (Glucagen Diagnostic Kit) 0 mg IM STAT PRN; Protocol PRN Reason: Hypoglycemia Protocol Hydrochlorothiazide (Microzide) 12.5 mg PO DAILY [facility] Last Admin: 10/08/17 14:04 Dose: Not Given Meropenem 1 gm/ Sodium (Chloride) 100 mls @ 100 mls/hr IVPB Q12 [facility] PRN Reason: Protocol Last Admin: 10/13/17 08:31 Dose: 100 mls/hr Vancomycin HCl 750 mg/ Sodium (Chloride) 250 mls @ 166.667 mls/hr IVPB Q12 [facility] PRN Reason: Protocol Last Admin: 10/12/17 20:20 Dose: 166.667 mls/hr Insulin Detemir (Levemir) 10 units SC [facility] Last Admin: 10/12/17 21:18 Dose: 10 units Insulin Human Regular (Humulin R) 0 units SC [facility] PRN Reason: Protocol Last Admin: 10/13/17 06:41 Dose: Not Given Levalbuterol HCl (Xopenex) 0.63 mg INH RQ4 PRN PRN Reason: Shortness of Breath Last Admin: 10/08/17 13:00 Dose: 0.63 mg Losartan Potassium (Cozaar) 50 mg PO DAILY [facility] Last Admin: 10/13/17 08:30 Dose: 50 mg Morphine Sulfate (Morphine) 2 mg IVP Q4 PRN PRN Reason: Pain, moderate (4-7) Last Admin: 10/13/17 05:00 Dose: 2 mg Morphine Sulfate (Morphine) 4 mg IVP Q4 PRN PRN Reason: Pain, severe (8-10) Last Admin: 10/11/17 21:50 Dose: 4 mg Ondansetron HCl (Zofran Inj) 4 mg IVP Q6 PRN PRN Reason: Nausea/Vomiting Oxycodone HCl (Oxycodone Immediate Release Tab) 5 mg PO Q6 PRN PRN Reason: Pain, Mild (1-3) Last Admin: 10/11/17 10:05 Dose: 5 mg Repaglinide (Prandin) 1 mg PO TIDAC [facility] Last Admin: 10/13/17 06:41 Dose: 1 mg Senna/Docusate Sodium (Senokot S 50 Mg-8.6 Mg) 2 tab PO [facility] Last Admin: 10/12/17 21:00 Dose: 2 tab - Labs Labs: 10/13/17 05:15 10/13/17 05:15 PT 13.3 Seconds (9.8-13.1) H 10/07/17 16:35 INR 1.2 10/07/17 16:35 APTT 34.1 Seconds (25.6-37.1) 10/07/17 16:35 - Constitutional Appears: No Acute Distress - Eye Exam Eye Exam: Normal appearance - ENT Exam ENT Exam: Mucous Membranes Moist - Respiratory Exam Respiratory Exam: Clear to Ausculation Bilateral, NORMAL BREATHING PATTERN Additional comments: Left anterior and posterior chest tubes in place. - Cardiovascular Exam Cardiovascular Exam: REGULAR RHYTHM, RRR, +S1, +S2 - GI/Abdominal Exam GI & Abdominal Exam: Soft, Normal Bowel Sounds. absent: Tenderness - Extremities Exam Extremities Exam: Normal Inspection. absent: Calf Tenderness, Pedal Edema, Tenderness - Back Exam Back Exam: absent: CVA tenderness (L), CVA tenderness (R) - Neurological Exam Neurological Exam: Alert, Awake, Oriented x3 - Psychiatric Exam Psychiatric exam: Normal Affect - Skin Skin Exam: Dry, Intact, Warm Assessment and Plan - Assessment and Plan (Free Text) Assessment: 76 y/o male w/ PMHx of HTN, COPD, DM2, atrial fibrillation who was admitted for left pneumothorax which developed s/p lung biopsy, now POD #4 left ant. and post. chest tubes placement Plan: Left lung Pneumothorax -repeat CXR no penumothorax/effusions appreciated -Thoracic Surgery Consult, Dr. Justice: daily CXR, repeat CT chest monday10/16/17, clamp tubes x 24 hrs, consider discontinue chest tubes Monday10/17/17 -s/p POD #4 left anterior and posterior chest tubes placement -s/p Left lung biopsy at [facility] on 10/04/[address] Hameed convey organized pneumonia -10/07/17: CT Chest: Left lung Pneumothorax, 40% lung collapsed -10/10/17: CT chest: no significant pneumothorax following placement of second chest tube, improved aeration and expansion -Pulmonology Consult appreciated: Dr. Hameed, will follow recommendations -Continue high flow O2 supplementation via nasal cannula, monitor respiratory status -Mycoplasma Igm and Legionella Ur Ag negative Blood cultures positive for gram+ cocci -10/07/2017 GPC+ in anaerobic sample, possible contaminant. 10/09 blood culture gram + bacilli -repeat blood cultures 10/10 no growth after 72 hours -ID consult appreciated; Meropenem 1 gm IV Q12 #4 w/ plans to d/c Meropenem once chest tubes are removed. -Vancomycin 750 mg Q12 day #3/5 w/ trough goal <20. Vanc trough today 10.4. -will follow TTE to check for vegetations Atrial Fibrillation -Chronic, asymptomatic -Cardiology consult appreciated: Dr. Last -Coumadin held per Dr. Last, latest INR 10/07/17 1.2 -was previously on digoxin, but this was d/c by Dr. Last in May due to detection of brief pauses EKG -no beta blockers as patient has limited respiratory reserve -Now on Lovenox 70 mg SC Q12 COPD -severe, chronic, Controlled -Pulmonology consult appreciated: Dr. Hameed -continue with Duonebs INH RQID [facility], Xopenex INH RQ4 PRN -hold Spiriva 18 mcg INH QD, hold Advair Diskus 500/50 1 puff IH Q12: per pulmonology -hold Ventolin HFA 2 puff IH Q6 PRN -monitor respiratory status Elevated ProBNP and Troponin -repeat echo ordered -serial troponins trending down -last echo in May showed EF 40-40%. However, per Dr. Last, patient has preserved left ventricular systolic function and elevated troponins are likely 2 /2 tachycardia induced myocyte injury -EKG findings likely 2/2 pneumothorax shifting mediastinum Left Lung Nodule, s/p Lung Biopsy on 10/04/17 at [facility] -bx showed organized pneumonia per Dr. Hameed who spoke w/ Faustino Noriega -awaiting official path report Diabetes Mellitus type 2 -chronic, controlled -Repaglinide 2mg TID decreased to 1mg PO TIDAC due to hypoglycemia -continue with home medications: Levemir 10 SC QHS. Insulin regular coverage scale added -Hypoglycemic treatment protocol in place -Renzo [facility] -Last HBA1C: 7.7 on 05/2017 -Diet: heart healthy, low carbohydrate Hypertension -chronic, uncontrolled -continue home medication: Losartan 50 mg PO QD -HCTZ held -monitor BP HLD -chronic, controlled -continue home medication: atorvastatin 40mg DVT Prophylaxis -Now on Lovenox 70 mg SC Q12 -Discussed risks and benefits w/ buttonhole maker hand Full Code -Next of kin: , [place] [phone]
--- NOTE | 2017-10-13 12:55 | CP.PCM.PN ---
Subjective - Date & Time of Evaluation Date of Evaluation: 10/13/17 Time of Evaluation: 12:52 - Subjective Subjective: Appears comfortable lying in bed conversing with his granddaughter. Vital signs have remained stable and he is well oxygenated. Chest pain secondary to tube insertions is decreasing. No air leaks noted in the [place]. Good tidal fluctuation. Small volume of blood-tinged serous fluid in chest tubes. Subcutaneous emphysema still present but almost resolved. Neck is supple and trachea is midline. Breath sounds are markedly diminished equally, bilaterally. Few dry rales are heard posteriorly in the lower lobes. No audible wheezes or bronchial breath sounds. Heart sounds are quite distant and the rhythm is irregular. No cyanosis. Repeat chest x-ray stable. No evidence of pneumothorax. Continue current management. Chest tube removal as per surgical team. Objective - Vital Signs/Intake and Output Vital Signs (last 24 hours): Temp Pulse Resp BP Pulse Ox 98.6 F 102 H 15 163/88 H 96 10/13/17 12:00 10/13/17 12:00 10/13/17 12:00 10/13/17 12:00 10/13/17 12:00 Intake and Output: 10/13/17 10/13/17 11:59 23:59 Intake Total 522 Output Total 425 Balance 97 - Medications Medications: Current Medications Albuterol/Ipratropium (Duoneb 3 Mg/0.5 Mg (3 Ml) Ud) 3 ml INH RQID [facility] Last Admin: 10/13/17 11:48 Dose: 3 ml Atorvastatin Calcium (Lipitor) 40 mg PO DAILY@2100 [facility] Last Admin: 10/12/17 20:16 Dose: 40 mg Dextrose (Dextrose 50% Inj) 0 ml IV STAT PRN; Protocol PRN Reason: Hypoglycemia Protocol Dextrose (Glutose 15) 0 gm PO ONCE PRN; Protocol PRN Reason: Hypoglycemia Protocol Enoxaparin Sodium (Lovenox) 70 mg SC Q12 [facility] PRN Reason: Protocol Last Admin: 10/13/17 08:30 Dose: 70 mg Famotidine (Pepcid) 20 mg PO DAILY [facility] Last Admin: 10/13/17 08:32 Dose: 20 mg Finasteride (Proscar) 5 mg PO DAILY [facility] Last Admin: 10/13/17 08:33 Dose: 5 mg Gabapentin (Neurontin) 300 mg PO HS [facility] Last Admin: 10/12/17 21:00 Dose: 300 mg Glucagon (Glucagen Diagnostic Kit) 0 mg IM STAT PRN; Protocol PRN Reason: Hypoglycemia Protocol Hydrochlorothiazide (Microzide) 12.5 mg PO DAILY [facility] Last Admin: 10/08/17 14:04 Dose: Not Given Meropenem 1 gm/ Sodium (Chloride) 100 mls @ 100 mls/hr IVPB Q12 [facility] PRN Reason: Protocol Last Admin: 10/13/17 08:31 Dose: 100 mls/hr Vancomycin HCl 750 mg/ Sodium (Chloride) 250 mls @ 166.667 mls/hr IVPB Q12 [facility] PRN Reason: Protocol Last Admin: 10/13/17 10:18 Dose: 166.667 mls/hr Insulin Detemir (Levemir) 10 units SC [facility] Last Admin: 10/12/17 21:18 Dose: 10 units Insulin Human Regular (Humulin R) 0 units SC [facility] PRN Reason: Protocol Last Admin: 10/13/17 06:41 Dose: Not Given Levalbuterol HCl (Xopenex) 0.63 mg INH RQ4 PRN PRN Reason: Shortness of Breath Last Admin: 10/08/17 13:00 Dose: 0.63 mg Losartan Potassium (Cozaar) 50 mg PO DAILY [facility] Last Admin: 10/13/17 08:30 Dose: 50 mg Morphine Sulfate (Morphine) 2 mg IVP Q4 PRN PRN Reason: Pain, moderate (4-7) Last Admin: 10/13/17 05:00 Dose: 2 mg Morphine Sulfate (Morphine) 4 mg IVP Q4 PRN PRN Reason: Pain, severe (8-10) Last Admin: 10/11/17 21:50 Dose: 4 mg Ondansetron HCl (Zofran Inj) 4 mg IVP Q6 PRN PRN Reason: Nausea/Vomiting Oxycodone HCl (Oxycodone Immediate Release Tab) 5 mg PO Q6 PRN PRN Reason: Pain, Mild (1-3) Last Admin: 10/11/17 10:05 Dose: 5 mg Repaglinide (Prandin) 1 mg PO TIDAC [facility] Last Admin: 10/13/17 06:41 Dose: 1 mg Senna/Docusate Sodium (Senokot S 50 Mg-8.6 Mg) 2 tab PO HS [facility] Last Admin: 10/12/17 21:00 Dose: 2 tab - Labs Labs: 10/13/17 05:15 10/13/17 05:15 PT 13.3 Seconds (9.8-13.1) H 10/07/17 16:35 INR 1.2 10/07/17 16:35 APTT 34.1 Seconds (25.6-37.1) 10/07/17 16:35
--- NOTE | 2017-10-13 18:16 | CP.PCM.PN ---
Subjective - Date & Time of Evaluation Date of Evaluation: 10/13/17 Time of Evaluation: 12:00 - Subjective Subjective: ID Note- pt. seen and examined today in ICU. pt. sitting up in chair and eating his food. He is in good spirits and denies any complaints. He still has the [address] Objective - Vital Signs/Intake and Output Vital Signs (last 24 hours): Temp Pulse Resp BP Pulse Ox 98.6 F 111 H 20 133/71 99 10/13/17 12:00 10/13/17 14:00 10/13/17 14:00 10/13/17 14:00 10/13/17 14:00 Intake and Output: 10/13/17 10/13/17 06:59 18:59 Intake Total 482 850 Output Total 825 Balance -343 850 - Medications Medications: Current Medications Albuterol/Ipratropium (Duoneb 3 Mg/0.5 Mg (3 Ml) Ud) 3 ml INH RQID [facility] Last Admin: 10/13/17 16:02 Dose: 3 ml Atorvastatin Calcium (Lipitor) 40 mg PO DAILY@2100 [facility] Last Admin: 10/12/17 20:16 Dose: 40 mg Dextrose (Dextrose 50% Inj) 0 ml IV STAT PRN; Protocol PRN Reason: Hypoglycemia Protocol Dextrose (Glutose 15) 0 gm PO ONCE PRN; Protocol PRN Reason: Hypoglycemia Protocol Enoxaparin Sodium (Lovenox) 70 mg SC Q12 ULISES PRN Reason: Protocol Last Admin: 10/13/17 08:30 Dose: 70 mg Famotidine (Pepcid) 20 mg PO DAILY [facility] Last Admin: 10/13/17 08:32 Dose: 20 mg Finasteride (Proscar) 5 mg PO DAILY [facility] Last Admin: 10/13/17 08:33 Dose: 5 mg Gabapentin (Neurontin) 300 mg PO HS [facility] Last Admin: 10/12/17 21:00 Dose: 300 mg Glucagon (Glucagen Diagnostic Kit) 0 mg IM STAT PRN; Protocol PRN Reason: Hypoglycemia Protocol Hydrochlorothiazide (Microzide) 12.5 mg PO DAILY [facility] Last Admin: 10/08/17 14:04 Dose: Not Given Meropenem 1 gm/ Sodium (Chloride) 100 mls @ 100 mls/hr IVPB Q12 [facility] PRN Reason: Protocol Last Admin: 10/13/17 08:31 Dose: 100 mls/hr Vancomycin HCl 750 mg/ Sodium (Chloride) 250 mls @ 166.667 mls/hr IVPB Q12 [facility]ISES PRN Reason: Protocol Last Admin: 10/13/17 10:18 Dose: 166.667 mls/hr Insulin Detemir (Levemir) 10 units SC HS [facility] Last Admin: 10/12/17 21:18 Dose: 10 units Insulin Human Regular (Humulin R) 0 units SC ACHS [facility] PRN Reason: Protocol Last Admin: 10/13/17 16:08 Dose: 2 unit Levalbuterol HCl (Xopenex) 0.63 mg INH RQ4 PRN PRN Reason: Shortness of Breath Last Admin: 10/08/17 13:00 Dose: 0.63 mg Losartan Potassium (Cozaar) 50 mg PO DAILY [facility] Last Admin: 10/13/17 08:30 Dose: 50 mg Morphine Sulfate (Morphine) 2 mg IVP Q4 PRN PRN Reason: Pain, moderate (4-7) Last Admin: 10/13/17 17:59 Dose: 2 mg Morphine Sulfate (Morphine) 4 mg IVP Q4 PRN PRN Reason: Pain, severe (8-10) Last Admin: 10/11/17 21:50 Dose: 4 mg Ondansetron HCl (Zofran Inj) 4 mg IVP Q6 PRN PRN Reason: Nausea/Vomiting Oxycodone HCl (Oxycodone Immediate Release Tab) 5 mg PO Q6 PRN PRN Reason: Pain, Mild (1-3) Last Admin: 10/11/17 10:05 Dose: 5 mg Repaglinide (Prandin) 1 mg PO TIDAC [facility] Last Admin: 10/13/17 17:48 Dose: 1 mg Senna/Docusate Sodium (Senokot S 50 Mg-8.6 Mg) 2 tab PO HS [facility] Last Admin: 10/12/17 21:00 Dose: 2 tab - Labs Labs: - Additional Findings Additional findings: - Constitutional Appears: NAD - Head Exam Head Exam: ATRAUMATIC - Eye Exam Eye Exam: EOMI, PERRL - ENT Exam ENT Exam: Normal Oropharynx - Neck Exam Neck exam: Positive for: Full Rom - Respiratory Exam Additional comments: decreased breath sounds in left base no wheezing has 2 chest tubes in left chest , one anterior and one posterior draining serosanguinous fluid left chest subcutaneous crepitus much less - Cardiovascular Exam Cardiovascular Exam: Tachycardia, +S1, +S2 - GI/Abdominal Exam GI & Abdominal Exam: Normal Bowel Sounds, Soft Additional comments: NT, ND - Extremities Exam Extremities exam: Positive for: normal inspection Additional comments: no edema B/L LE - Neurological Exam Neurological exam: Alert, Oriented x 3 Laboratory Results - last 72 hr 10/07/17 10/10/17 10/10/17 16:35 19:26 21:31 WBC RBC Hgb Hct MCV MCH MCHC RDW Plt Count MPV Neut % (Auto) Lymph % (Auto) Hendry % (Auto) Eos % (Auto) Baso % (Auto) Neut # (Auto) Lymph # (Auto) Hendry # (Auto) Eos # (Auto) Baso # (Auto) Sodium Potassium Chloride Carbon Dioxide Anion Gap BUN Creatinine Est GFR ( Amer) Est GFR (Non-Af Amer) POC Glucose (mg/dL) 158 H Random Glucose Calcium Total Bilirubin AST ALT Alkaline Phosphatase Total Protein Albumin Globulin Albumin/Globulin Ratio Urine Color Yellow Urine Clarity Slight-cloudy Urine pH 5.0 Ur Specific Morgan 1.034 H Urine Protein Negative Urine Glucose (UA) 50 Urine Ketones Negative Urine Blood Moderate Urine Nitrate Negative Urine Bilirubin Negative Urine Urobilinogen 0.2-1.0 Ur Leukocyte Esterase Negative Urine RBC (Auto) 20 H Urine Microscopic WBC 5 Ur Squamous Epith Cells 1 Vancomycin Trough Crossmatch See Detail 10/11/17 10/11/17 10/11/17 04:40 04:40 05:50 WBC 9.3 RBC 4.08 L Hgb 13.2 Hct 38.0 MCV 93.0 MCH 32.4 H MCHC 34.9 RDW 13.6 Plt Count 214 MPV Neut % (Auto) Lymph % (Auto) Hendry % (Auto) Eos % (Auto) Baso % (Auto) Neut # (Auto) Lymph # (Auto) Hendry # (Auto) Eos # (Auto) Baso # (Auto) Sodium 142 Potassium 4.3 Chloride 101 Carbon Dioxide 31 H Anion Gap 14 BUN 45 H Creatinine 0.9 Est GFR ( Amer) > 60 Est GFR (Non-Af Amer) > 60 POC Glucose (mg/dL) 86 Random Glucose 85 Calcium 8.9 Total Bilirubin 1.2 AST 61 H D ALT 56 Alkaline Phosphatase 54 Total Protein 5.9 L Albumin 3.3 L Globulin 2.6 Albumin/Globulin Ratio 1.2 Urine Color Urine Clarity Urine pH Ur Specific Morgan Urine Protein Urine Glucose (UA) Urine Ketones Urine Blood Urine Nitrate Urine Bilirubin Urine Urobilinogen Ur Leukocyte Esterase Urine RBC (Auto) Urine Microscopic WBC Ur Squamous Epith Cells Vancomycin Trough Crossmatch 10/11/17 10/11/17 10/11/17 12:16 16:51 21:53 WBC RBC Hgb Hct MCV MCH MCHC RDW Plt Count MPV Neut % (Auto) Lymph % (Auto) Hendry % (Auto) Eos % (Auto) Baso % (Auto) Neut # (Auto) Lymph # (Auto) Hendry # (Auto) Eos # (Auto) Baso # (Auto) Sodium Potassium Chloride Carbon Dioxide Anion Gap BUN Creatinine Est GFR ( Amer) Est GFR (Non-Af Amer) POC Glucose (mg/dL) 266 H 154 H 59 L Random Glucose Calcium Total Bilirubin AST ALT Alkaline Phosphatase Total Protein Albumin Globulin Albumin/Globulin Ratio Urine Color Urine Clarity Urine pH Ur Specific Morgan Urine Protein Urine Glucose (UA) Urine Ketones Urine Blood Urine Nitrate Urine Bilirubin Urine Urobilinogen Ur Leukocyte Esterase Urine RBC (Auto) Urine Microscopic WBC Ur Squamous Epith Cells Vancomycin Trough Crossmatch 10/11/17 10/11/17 10/12/17 21:55 23:25 04:50 WBC RBC Hgb Hct MCV MCH MCHC RDW Plt Count MPV Neut % (Auto) Lymph % (Auto) Hendry % (Auto) Eos % (Auto) Baso % (Auto) Neut # (Auto) Lymph # (Auto) Hendry # (Auto) Eos # (Auto) Baso # (Auto) Sodium 139 Potassium 4.2 Chloride 100 Carbon Dioxide 33 H Anion Gap 10 BUN 34 H Creatinine 0.7 L Est GFR ( Amer) > 60 Est GFR (Non-Af Amer) > 60 POC Glucose (mg/dL) 48 L 143 H Random Glucose 83 Calcium 8.6 Total Bilirubin 1.2 AST 42 ALT 44 Alkaline Phosphatase 45 Total Protein 5.3 L Albumin 2.8 L Globulin 2.5 Albumin/Globulin Ratio 1.1 Urine Color Urine Clarity Urine pH Ur Specific Morgan Urine Protein Urine Glucose (UA) Urine Ketones Urine Blood Urine Nitrate Urine Bilirubin Urine Urobilinogen Ur Leukocyte Esterase Urine RBC (Auto) Urine Microscopic WBC Ur Squamous Epith Cells Vancomycin Trough Crossmatch 10/12/17 10/12/17 10/12/17 04:50 06:00 06:32 WBC 8.1 RBC 3.70 L Hgb 12.0 Hct 34.1 L MCV 92.2 MCH 32.5 H MCHC 35.3 RDW 13.6 Plt Count 217 MPV 7.6 Neut % (Auto) 67.2 Lymph % (Auto) 17.3 L Hendry % (Auto) 10.3 H Eos % (Auto) 4.8 H Baso % (Auto) 0.4 Neut # (Auto) 5.4 Lymph # (Auto) 1.4 Hendry # (Auto) 0.8 Eos # (Auto) 0.4 Baso # (Auto) 0.0 Sodium Potassium Chloride Carbon Dioxide Anion Gap BUN Creatinine Est GFR ( Amer) Est GFR (Non-Af Amer) POC Glucose (mg/dL) 81 Random Glucose Calcium Total Bilirubin AST ALT Alkaline Phosphatase Total Protein Albumin Globulin Albumin/Globulin Ratio Urine Color Yellow Urine Clarity Slighty-cloudy Urine pH 5.0 Ur Specific Morgan 1.024 Urine Protein Negative Urine Glucose (UA) 150 Urine Ketones Negative Urine Blood Negative Urine Nitrate Negative Urine Bilirubin Negative Urine Urobilinogen 0.2-1.0 Ur Leukocyte Esterase Neg Urine RBC (Auto) 1 Urine Microscopic WBC 2 Ur Squamous Epith Cells Vancomycin Trough Crossmatch 10/12/17 10/12/17 10/12/17 11:36 16:36 19:53 WBC RBC Hgb Hct MCV MCH MCHC RDW Plt Count MPV Neut % (Auto) Lymph % (Auto) Hendry % (Auto) Eos % (Auto) Baso % (Auto) Neut # (Auto) Lymph # (Auto) Hendry # (Auto) Eos # (Auto) Baso # (Auto) Sodium Potassium Chloride Carbon Dioxide Anion Gap BUN Creatinine Est GFR ( Amer) Est GFR (Non-Af Amer) POC Glucose (mg/dL) 208 H 110 103 Random Glucose Calcium Total Bilirubin AST ALT Alkaline Phosphatase Total Protein Albumin Globulin Albumin/Globulin Ratio Urine Color Urine Clarity Urine pH Ur Specific Morgan Urine Protein Urine Glucose (UA) Urine Ketones Urine Blood Urine Nitrate Urine Bilirubin Urine Urobilinogen Ur Leukocyte Esterase Urine RBC (Auto) Urine Microscopic WBC Ur Squamous Epith Cells Vancomycin Trough Crossmatch 10/13/17 10/13/17 10/13/17 05:15 05:15 05:15 WBC 9.1 RBC 3.97 L Hgb 12.8 Hct 36.9 MCV 92.9 MCH 32.2 H MCHC 34.6 RDW 13.3 Plt Count 241 MPV Neut % (Auto) Lymph % (Auto) Hendry % (Auto) Eos % (Auto) Baso % (Auto) Neut # (Auto) Lymph # (Auto) Hendry # (Auto) Eos # (Auto) Baso # (Auto) Sodium 140 Potassium 4.7 Chloride 100 Carbon Dioxide 32 H Anion Gap 13 BUN 29 H Creatinine 0.8 Est GFR ( Amer) > 60 Est GFR (Non-Af Amer) > 60 POC Glucose (mg/dL) Random Glucose 115 H Calcium 9.2 Total Bilirubin 1.4 H AST 40 ALT 41 Alkaline Phosphatase 53 Total Protein 5.9 L Albumin 3.3 L Globulin 2.6 Albumin/Globulin Ratio 1.3 Urine Color Urine Clarity Urine pH Ur Specific Morgan Urine Protein Urine Glucose (UA) Urine Ketones Urine Blood Urine Nitrate Urine Bilirubin Urine Urobilinogen Ur Leukocyte Esterase Urine RBC (Auto) Urine Microscopic WBC Ur Squamous Epith Cells Vancomycin Trough 10.4 H Crossmatch 10/13/17 10/13/17 10/13/17 05:41 11:45 15:55 WBC RBC Hgb Hct MCV MCH MCHC RDW Plt Count MPV Neut % (Auto) Lymph % (Auto) Hendry % (Auto) Eos % (Auto) Baso % (Auto) Neut # (Auto) Lymph # (Auto) Hendry # (Auto) Eos # (Auto) Baso # (Auto) Sodium Potassium Chloride Carbon Dioxide Anion Gap BUN Creatinine Est GFR ( Amer) Est GFR (Non-Af Amer) POC Glucose (mg/dL) 103 176 H 207 H Random Glucose Calcium Total Bilirubin AST ALT Alkaline Phosphatase Total Protein Albumin Globulin Albumin/Globulin Ratio Urine Color Urine Clarity Urine pH Ur Specific Morgan Urine Protein Urine Glucose (UA) Urine Ketones Urine Blood Urine Nitrate Urine Bilirubin Urine Urobilinogen Ur Leukocyte Esterase Urine RBC (Auto) Urine Microscopic WBC Ur Squamous Epith Cells Vancomycin Trough Crossmatch Microbiology 10/10/17 16:30 Pleural Fluid Gram Stain - Final 10/10/17 16:30 Pleural Fluid Body Fluid Culture - Preliminary NO GROWTH AFTER 3 DAYS 10/10/17 10:40 Blood-Venous Blood Culture - Preliminary NO GROWTH AFTER 3 DAYS 10/09/17 18:00 Blood-Venous Blood Culture - Preliminary Gram Positive Michael 10/09/17 18:00 Blood-Venous Gram Stain - Final 10/10/17 19:26 Urine Urine Culture - Final No Growth (<1,000 CFU/ML) 10/07/17 16:35 Blood-Venous Blood Culture - Final NO GROWTH AFTER 5 DAYS 10/07/17 16:35 Blood-Venous Gram Stain - Final TEST NOT PERFORMED 10/09/17 15:00 Other: Please Indicate Gram Stain - Final 10/09/17 15:00 Other: Please Indicate Wound Culture - Final No growth. 10/09/17 15:00 Other: Please Indicate Gram Stain - Final 10/09/17 15:00 Other: Please Indicate Wound Culture - Final No growth. 10/07/17 16:35 Blood-Venous S.aureus & Coag-Neg Staph PNA FISH - Final 10/07/17 16:35 Blood-Venous Blood Culture - Final Coagulase Neg Staphylococcus 10/07/17 16:35 Blood-Venous Gram Stain - Final 10/10/17 11:17 Sputum Gram Stain - Final 10/10/17 11:17 Sputum Sputum Culture - Final Yeast Species Accession No. : [id number] Patient Name / ID : FATUMA ABREU / [id number] Exam Date : 10/13/2017 05:37:32 ( Approved ) Study Comment : Sex / Age : M / 76Y Creator : Delfin Billings MD Dictator : Delfin Billings MD Research Scientist : Media Developer : Delfin Billings MD Approver2 : Report Date : 10/13/2017 08:05:07 My Comment : Date of service: 10/13/2017 PROCEDURE: CHEST RADIOGRAPH, 1 VIEW HISTORY: chest tube evaluation COMPARISON: Portable chest 10/12/2017 4:43 a.m.. FINDINGS: Stable left chest is identified with no visible pneumothorax appreciable bilaterally. LUNGS: No definite infiltrate. Pulmonary fibrotic changes/ COPD reiterated. PLEURA: No pleural effusion bilaterally. No pneumothorax as discussed above. CARDIOVASCULAR: Normal. OSSEOUS STRUCTURES: No significant abnormalities. VISUALIZED UPPER ABDOMEN: Normal. OTHER FINDINGS: Diminished left chest wall emphysematous change. IMPRESSION: Stable left chest tubes in position with no pneumothorax. Diminishing left chest wall emphysema. COPD/fibrotic changes again identified bilaterally. Assessment and Plan (1) Pneumothorax Status: Acute (2) COPD exacerbation Status: Acute (3) Pulmonary nodules/lesions, multiple Status: Chronic (4) Leukocytosis Status: Resolved (5) Pulmonary emphysema Status: Chronic - Assessment and Plan (Free Text) Assessment: A/P- 76 year old male with multiple medical conditions including COPD, A.Fib, DM II s /p lung biopsy later developed pneumothorax s/p chest tuube 4 days ago , not improved and had developed left sided chest subcutaneous emphysema s/p 2 chest tubes 3 days ago afebrile leukocytosis resolved. blood cx from 10/07 - one out of 2 bottles reported coag neg staph ( most likely contaminant) repeat blood cx- neg x 10/10/2017) today lab reportds blood cx from 10/09/2017- gram pos Rods ( anerobic bottle only) !!! OR cx- no growth mycoplasmaIGm- neg Urine legionellla Ag- Neg pleural fluid cx- neg sputum cx- yeast TTE report- pending Plan- the 1 out of 2 blood cx reported after 3 days and only on anaerobic bottle is most likely a contaminant. however since pt. has had multiple procedures started vanco , day #3 keep trough <20. today reported gram pos rods from blood cx from 10/09/2017 anerobic bottle only, await ID of this. advise to continue with broad spectrum meropenem abx for nosocomial coverage pending further results. day #5 2 diff species pos blood cx after 4 days does not make sense specailly since pt. is clinically much betetr. advise to check repeat blood cx x 2. await ID and sen of these bloodcx. await echo report. All labs and imaging reviewed. ICU time 40 minutes.
[2017-10-13] MEDS: Docusate-Senna 50 mg-8.6 mg Tab PO SCH (20:59)
[2017-10-13] MEDS: Insulin Detemir 100 Units/ml Inj SC SCH (22:47)
[2017-10-14] MEDS: Insulin Regular 100 units/ml SC SCH ×4 (06:42→22:10)
[2017-10-14 06:44] LABS: HEMOGLOBIN 12.2 g/dL (12.0-18.0); MEAN CELL VOLUME 92.3 fl (80.0-94.0); MEAN CORPUSCULAR HEMOGLOBIN 31.7 pg (27.0-31.0); MEAN CORPUSCULAR HGB CONC 34.3 g/dL (33.0-37.0); RBC 3.84 Mil/uL (4.40-5.90); RED CELL DISTRIBUTION WIDTH 13.5 % (11.5-14.5)
[2017-10-14 06:55] LABS: ALB/GLOB RATIO 1.2 (1.0-2.1); ALT/SGPT 33 U/L (21-72); AST/SGOT 36 U/L (17-59); BLOOD UREA NITROGEN 24 mg/dl (9-20); CALCIUM 8.9 mg/dL (8.4-10.2); GFR AFRICAN-AMERICAN > 60; GFR NON-AFRICAN AMERICAN > 60
[2017-10-14] MEDS: Albuterol-Ipratrop 3 mg / 0.5 (3 ml) UD INH SCH ×4 (08:00→19:56)
--- NOTE | 2017-10-14 08:10 | CP.PCM.PN ---
Subjective - Date & Time of Evaluation Date of Evaluation: 10/14/17 Time of Evaluation: 08:08 - Subjective Subjective: Thoracic Surgery - Dr. Justice Pt S&E. RAMYA. Pt complains of weakness and fatigue from being in the hospital , as well as L chest pain from the chest tube sites. Otherwise pt deneis any complaints. No fevers/Chills, SOB. Left CT x2 to wall suction with 60cc total drainage, serosanguinous. Objective - Vital Signs/Intake and Output Vital Signs (last 24 hours): Temp Pulse Resp BP Pulse Ox 97.9 F 87 20 132/74 99 10/14/17 07:56 10/14/17 07:56 10/14/17 07:56 10/14/17 07:56 10/14/17 07:56 Intake and Output: 10/14/17 10/14/17 06:59 18:59 Intake Total 426 120 Output Total 376 Balance 50 120 - Medications Medications: Current Medications Albuterol/Ipratropium (Duoneb 3 Mg/0.5 Mg (3 Ml) Ud) 3 ml INH RQID [facility] Last Admin: 10/14/17 08:00 Dose: 3 ml Atorvastatin Calcium (Lipitor) 40 mg PO DAILY@2100 [facility] Last Admin: 10/13/17 20:57 Dose: 40 mg Dextrose (Dextrose 50% Inj) 0 ml IV STAT PRN; Protocol PRN Reason: Hypoglycemia Protocol Dextrose (Glutose 15) 0 gm PO ONCE PRN; Protocol PRN Reason: Hypoglycemia Protocol Enoxaparin Sodium (Lovenox) 70 mg SC Q12 [facility]ISES PRN Reason: Protocol Last Admin: 10/13/17 20:46 Dose: 70 mg Famotidine (Pepcid) 20 mg PO DAILY [facility] Last Admin: 10/13/17 08:32 Dose: 20 mg Finasteride (Proscar) 5 mg PO DAILY [facility] Last Admin: 10/13/17 08:33 Dose: 5 mg Gabapentin (Neurontin) 300 mg PO HS [facility] Last Admin: 10/13/17 21:00 Dose: 300 mg Glucagon (Glucagen Diagnostic Kit) 0 mg IM STAT PRN; Protocol PRN Reason: Hypoglycemia Protocol Hydrochlorothiazide (Microzide) 12.5 mg PO DAILY [facility] Last Admin: 10/08/17 14:04 Dose: Not Given Meropenem 1 gm/ Sodium (Chloride) 100 mls @ 100 mls/hr IVPB Q12 [facility] PRN Reason: Protocol Last Admin: 10/13/17 20:45 Dose: 100 mls/hr Vancomycin HCl 750 mg/ Sodium (Chloride) 250 mls @ 166.667 mls/hr IVPB Q12 [facility] PRN Reason: Protocol Last Admin: 10/13/17 21:02 Dose: 166.667 mls/hr Insulin Detemir (Levemir) [address] [facility] Last Admin: 10/13/17 22:47 Dose: Not Given Insulin Human Regular (Humulin R) 0 units SC [facility] PRN Reason: Protocol Last Admin: 10/14/17 06:42 Dose: Not Given Levalbuterol HCl (Xopenex) 0.63 mg INH RQ4 PRN PRN Reason: Shortness of Breath Last Admin: 10/08/17 13:00 Dose: 0.63 mg Losartan Potassium (Cozaar) 50 mg PO DAILY [facility] Last Admin: 10/13/17 08:30 Dose: 50 mg Morphine Sulfate (Morphine) 2 mg IVP Q4 PRN PRN Reason: Pain, moderate (4-7) Last Admin: 10/13/17 17:59 Dose: 2 mg Morphine Sulfate (Morphine) 4 mg IVP Q4 PRN PRN Reason: Pain, severe (8-10) Last Admin: 10/13/17 22:30 Dose: 4 mg Ondansetron HCl (Zofran Inj) 4 mg IVP Q6 PRN PRN Reason: Nausea/Vomiting Oxycodone HCl (Oxycodone Immediate Release Tab) 5 mg PO Q6 PRN PRN Reason: Pain, Mild (1-3) Last Admin: 10/11/17 10:05 Dose: 5 mg Repaglinide (Prandin) 1 mg PO TIDAC [facility] Last Admin: 10/13/17 17:48 Dose: 1 mg Senna/Docusate Sodium (Senokot S 50 Mg-8.6 Mg) [address] [facility] Last Admin: 10/13/17 20:59 Dose: 2 tab - Labs Labs: 10/14/17 05:25 10/14/17 05:25 PT 13.3 Seconds (9.8-13.1) H 10/07/17 16:35 INR 1.2 10/07/17 16:35 APTT 34.1 Seconds (25.6-37.1) 10/07/17 16:35 - Constitutional Appears: No Acute Distress - Head Exam Head Exam: ATRAUMATIC, NORMAL INSPECTION, NORMOCEPHALIC - Eye Exam Eye Exam: Normal appearance - Respiratory Exam Respiratory Exam: NORMAL BREATHING PATTERN. absent: Respiratory Distress - Cardiovascular Exam Cardiovascular Exam: REGULAR RHYTHM - Neurological Exam Neurological Exam: Alert, Oriented x3 - Psychiatric Exam Psychiatric exam: Normal Affect, Normal Mood - Skin Skin Exam: Dry, Intact Assessment and Plan - Assessment and Plan (Free Text) Assessment: 77 yo M w/ L pneumothorax, s/p chest tube placement x2 -Continue chest tubes to wall suction -Continue pain control prn -Encourage OOB and Incentive Spirometer -Plan for CT monday and clamp trial -Possible plan for chest tube removal on Monday pending the CT results DW Dr Vinh Corral PGy4
[2017-10-14] MEDS: Enoxaparin 80 mg Syringe SC SCH ×2 (08:55→20:01)
[2017-10-14] MEDS: Meropenem 1 GM in Sodium Chloride 0.9% 100 ML IVPB SCH ×2 (08:56→20:01)
--- NOTE | 2017-10-14 09:38 | CP.CCUPN ---
CCU Subjective - Physician Review Events Since Last Encounter (Free Text): 10/14/17 09:36 alert and oriented, no sob, no pain , CCU Objective - Vital Signs / Intake & Output Vital Signs (Last 4 hours): Vital Signs Temp Pulse Resp BP Pulse Ox 10/14/17 08:54 98 H 128/54 L 10/14/17 07:56 97.9 F 87 20 132/74 99 10/14/17 06:00 98.4 F 109 H 20 139/74 97 Intake and Output (Last 8hrs): Intake & Output 10/13/17 10/14/17 10/14/17 22:59 06:59 14:59 Intake Total 580 16 120 Output Total 530 376 Balance 50 -360 120 Weight 159 lb 11.2 oz Intake: IV 10 16 Intake, Piggyback 350 Oral 220 120 Output: Chest Tube Drainage 30 26 Left Anterior Chest 10 16 Left Posterior Chest 20 10 Urine 500 350 Urine, Voided 500 350 - Physical Exam Narrative Physical Exam (Free Text): 10/14/17 09:39 P/E Neck: No JVD Lungs: No ronchi, crackles. s/p Rt chest tube, heart: S1S2 irregular Abdomen: soft, non-tender Ext: No edema Head: Positive for: Atraumatic, Normocephalic Pupils: Positive for: PERRL Extroacular Muscles: Positive for: EOMI Conjunctiva: Positive for: Normal. Negative for: Icteric Mouth: Positive for: Moist Mucous Membranes Nose (External): Positive for: Atraumatic. Negative for: Abrasion Neck: Positive for: Normal Range of Motion, Trachea Midline Respiratory/Chest: Positive for: Good Air Exchange, Decreased Breath Sounds, Other (left anterior and posterior chest tube in place, draining serosanguineous fluids.). Negative for: Respiratory Distress, Accessory Muscle Use, Rales Cardiovascular: Positive for: Irregular Rhythm, Peripheal Pulses Present. Negative for: Murmurs, Normal S1, S2 Abdomen: Positive for: Normal Bowel Sounds. Negative for: Tenderness, Distention Upper Extremity: Positive for: Normal Inspection. Negative for: Edema Lower Extremity: Positive for: Normal Inspection, NORMAL PULSES. Negative for: Edema, CALF TENDERNESS Neurological: Positive for: Speech Normal, Motor Func Grossly Intact, Normal Sensory Function Skin: Positive for: Warm, Normal Color. Negative for: Rashes Psychiatric: Positive for: Alert, Oriented x 3 - Medications Active Medications: Active Medications Generic Name Dose Route Start Last Admin Trade Name Freq PRN Reason Stop Dose Admin Albuterol/Ipratropium 3 ml 10/08/17 12:00 10/14/17 08:00 Duoneb 3 Mg/0.5 Mg (3 Ml) Ud INH 3 ml RQID ULISES Administration Atorvastatin Calcium 40 mg 10/07/17 21:00 10/13/17 20:57 Lipitor PO 40 mg DAILY@2100 ULISES Administration Dextrose 0 ml 10/07/17 19:49 Dextrose 50% Inj IV STAT PRN Hypoglycemia Protocol Protocol Dextrose 0 gm 10/07/17 19:49 Glutose 15 PO ONCE PRN Hypoglycemia Protocol Protocol Enoxaparin Sodium 70 mg 10/12/17 21:00 10/14/17 08:55 Lovenox SC 70 mg Q12 ULISES Administration Protocol Famotidine 20 mg 10/08/17 13:15 10/14/17 08:57 Pepcid PO 20 mg DAILY ULISES Administration Finasteride 5 mg 10/08/17 09:00 10/14/17 08:57 Proscar PO 5 mg DAILY ULISES Administration Gabapentin 300 mg 10/07/17 22:00 10/13/17 21:00 Neurontin PO 300 mg HS ULISES Administration Glucagon 0 mg 10/07/17 19:49 Glucagen Diagnostic Kit IM STAT PRN Hypoglycemia Protocol Protocol Hydrochlorothiazide 12.5 mg 10/08/17 09:00 10/08/17 14:04 Microzide PO Not Given DAILY ULISES Meropenem 1 gm/ Sodium 100 mls @ 100 mls/hr 10/09/17 21:00 10/14/17 08:56 Chloride IVPB 100 mls/hr Q12 ULISES Administration Protocol Vancomycin HCl 750 mg/ Sodium 250 mls @ 166.667 mls/hr 10/10/17 21:00 08:57 Chloride IVPB 166.667 mls/hr Q12 ULISES Administration Protocol Insulin Detemir 10 units 10/07/17 22:00 10/13/17 22:47 Levemir SC Not Given HS ULISES Insulin Human Regular 0 units 10/11/17 13:17 10/14/17 06:42 Humulin R SC Not Given ACHS ULISES Protocol Levalbuterol HCl 0.63 mg 10/08/17 09:07 10/08/17 13:00 Xopenex INH 0.63 mg RQ4 PRN Administration Shortness of Breath Losartan Potassium 50 mg 10/08/17 09:00 10/14/17 08:54 Cozaar PO 50 mg DAILY ULISES Administration Morphine Sulfate 2 mg 10/10/17 09:12 10/14/17 09:04 Morphine IVP 2 mg Q4 PRN Administration Pain, moderate (4-7) Morphine Sulfate 4 mg 10/10/17 16:50 10/13/17 22:30 Morphine IVP 4 mg Q4 PRN Administration Pain, severe (8-10) Ondansetron HCl 4 mg 10/09/17 15:01 Zofran Inj IVP Q6 PRN Nausea/Vomiting Oxycodone HCl 5 mg 10/09/17 16:27 10/11/17 10:05 Oxycodone Immediate Release Tab PO 5 mg Q6 PRN Administration Pain, Mild (1-3) Repaglinide 1 mg 10/12/17 16:30 10/14/17 08:57 Prandin PO Not Given TIDAC ULISES Senna/Docusate Sodium 2 tab 10/10/17 22:00 10/13/17 20:59 Senokot S 50 Mg-8.6 Mg PO 2 tab HS ULISES Administration - Patient Studies Lab Studies: Microbiology Studies 10/10/17 16:30 Gram Stain - Final Pleural Fluid Body Fluid Culture - Preliminary NO GROWTH AFTER 3 DAYS 10/10/17 10:40 Blood Culture - Preliminary Blood-Venous NO GROWTH AFTER 3 DAYS 10/09/17 18:00 Blood Culture - Preliminary Blood-Venous Gram Positive Michael Gram Stain - Final Lab Studies 10/14/17 10/14/17 10/13/17 Range/Units 05:25 05:25 15:55 WBC 9.0 (4.8-10.8) K/uL RBC 3.84 L (4.40-5.90) Mil/uL Hgb 12.2 (12.0-18.0) g/dL Hct 35.5 (35.0-51.0) % MCV 92.3 (80.0-94.0) fl MCH 31.7 H (27.0-31.0) pg MCHC 34.3 (33.0-37.0) g/dL RDW 13.5 (11.5-14.5) % Plt Count 229 (130-400) K/uL Sodium 138 (132-148) mmol/l Potassium 4.2 (3.6-5.0) MMOL/L Chloride 102 (98-107) mmol/L Carbon Dioxide 34 H (22-30) mmol/L Anion Gap 6 L (10-20) BUN 24 H (9-20) mg/dl Creatinine 0.7 L (0.8-1.5) mg/dl Est GFR ( Amer) > 60 Est GFR (Non-Af Amer) > 60 POC Glucose (mg/dL) 207 H (65-110) mg/dL Random Glucose 87 (75-110) mg/dL Calcium 8.9 (8.4-10.2) mg/dL Total Bilirubin 1.0 (0.2-1.3) mg/dl AST 36 (17-59) U/L ALT 33 (21-72) U/L Alkaline Phosphatase 51 (38-126) U/L Total Protein 5.6 L (6.3-8.2) G/DL Albumin 3.0 L (3.5-5.0) g/dL Globulin 2.6 (2.2-3.9) gm/dL Albumin/Globulin Ratio 1.2 (1.0-2.1) 10/13/17 10/13/17 Range/Units 11:45 05:41 WBC (4.8-10.8) K/uL RBC (4.40-5.90) Mil/uL Hgb (12.0-18.0) g/dL Hct (35.0-51.0) % MCV (80.0-94.0) fl MCH (27.0-31.0) pg MCHC (33.0-37.0) g/dL RDW (11.5-14.5) % Plt Count (130-400) K/uL Sodium (132-148) mmol/l Potassium (3.6-5.0) MMOL/L Chloride (98-107) mmol/L Carbon Dioxide (22-30) mmol/L Anion Gap (10-20) BUN (9-20) mg/dl Creatinine (0.8-1.5) mg/dl Est GFR ( Amer) Est GFR (Non-Af Amer) POC Glucose (mg/dL) 176 H 103 (65-110) mg/dL Random Glucose (75-110) mg/dL Calcium (8.4-10.2) mg/dL Total Bilirubin (0.2-1.3) mg/dl AST (17-59) U/L ALT (21-72) U/L Alkaline Phosphatase (38-126) U/L Total Protein (6.3-8.2) G/DL Albumin (3.5-5.0) g/dL Globulin (2.2-3.9) gm/dL Albumin/Globulin Ratio (1.0-2.1) Laboratory Results - last 24 hr 10/13/17 10/13/17 10/13/17 05:41 11:45 15:55 WBC RBC Hgb Hct MCV MCH MCHC RDW Plt Count Sodium Potassium Chloride Carbon Dioxide Anion Gap BUN Creatinine Est GFR ( Amer) Est GFR (Non-Af Amer) POC Glucose (mg/dL) 103 176 H 207 H Random Glucose Calcium Total Bilirubin AST ALT Alkaline Phosphatase Total Protein Albumin Globulin Albumin/Globulin Ratio 10/14/17 10/14/17 05:25 05:25 WBC 9.0 RBC 3.84 L Hgb 12.2 Hct 35.5 MCV 92.3 MCH 31.7 H MCHC 34.3 RDW 13.5 Plt Count 229 Sodium 138 Potassium 4.2 Chloride 102 Carbon Dioxide 34 H Anion Gap 6 L BUN 24 H Creatinine 0.7 L Est GFR ( Amer) > 60 Est GFR (Non-Af Amer) > 60 POC Glucose (mg/dL) Random Glucose 87 Calcium 8.9 Total Bilirubin 1.0 AST 36 ALT 33 Alkaline Phosphatase 51 Total Protein 5.6 L Albumin 3.0 L Globulin 2.6 Albumin/Globulin Ratio 1.2 Fingerstick Blood Sugar Results: 80 Critical Care Progress Note - Nutrition Nutrition: Nutrition Category Date Time Status Heart Healthy Diet [DIET] Diets 10/09/17 Lunch Active Assessment/Plan - Assessment and Plan (Free Text) Assessment: 76 yo male with PMHx of HTN, Hypercholesterolemia, Atrial Fibrillation, COPD, Chronic Kidney Disease and multiple pulmonary nodules S/P HAYDE biopsy on 10/04, developed left sided pneumothorax s/p left anterior chest tube placement on and left posterior chest tube placement on 10/09/17, was on high flow oxygen for shortness of breath for 2 days, currently on 2L NC oxygen breathing comfortably. Pneumothorax -Left sided pneumothorax s/p left anterior and posterior chest tube placement -Mild drainage of serosanguineous fluids(posterior>anterior) -No SOB now, on 2L NC oxygen, saturating well >98% - COPD -Chronic obstructive lung disease: continue with current management. -Continue to monitor A fib -Atrial fibrillation, rate stable -Hypertension: Controlled. Continue with losartan 50 mg po daily. -Start Lovenox 70 mg SC Q12 hr Diabetes mellitus II -Well controlled (HbA1c 7.7 on 05/2017) -Continue with current management GI: No acute issues -Continue with GI prophylaxis ID: -Dr. Luna on board -On meropenem 1 gm IVPB q12 and vancomycin 750 mg q12 -Blood cx on 10/07/17: coagulase negative staph -Sputum cx on 10/10/17: yeast species -Blood cx: no growth so far. DVT proph - pt is on therapeutic lovenox for atrial fibrillation GI proph -famotidine 20 mg po daily Code status - full cod
--- NOTE | 2017-10-14 10:31 | RAD ---
Date of service: 10/14/2017 PROCEDURE: CHEST RADIOGRAPH, 1 VIEW HISTORY: chest tube evaluation COMPARISON: Chest radiograph dated 10/13/2017 FINDINGS: LUNGS: Bilateral COPD and fibrotic changes. No focal consolidation. PLEURA: Tenting of both hemidiaphragms, slightly increased. No pneumothorax or pleural fluid seen. CARDIOVASCULAR: Normal. OSSEOUS STRUCTURES: No significant abnormalities. VISUALIZED UPPER ABDOMEN: Normal. OTHER FINDINGS: Two large bore left-sided chest tubes, unchanged. Left chest wall subcutaneous emphysema, unchanged. IMPRESSION: Left-sided chest tubes in place. No appreciable pneumothorax. Similar left chest wall subcutaneous emphysema.
--- NOTE | 2017-10-14 11:15 | CP.PCM.PN ---
Subjective - Date & Time of Evaluation Date of Evaluation: 10/14/17 Time of Evaluation: 11:15 - Subjective Subjective: Remains clinically stable, sitting up in bed. Conversant, good mood, complains of some residual pain at the chest tube site. Vital signs have remained stable. Serosanguinous drainage continues, no air leaks, good fluctuation in tidal breathing. Breath sounds are diminished bilaterally, few scattered sonorous rhonchi. No audible wheezes or bronchial breath sounds. Few dry rales in LL's posteriorly. Chest x-ray continues to show well expanded left lung with two CT's in place. Vital signs have remained stable and he continues to be well oxygenated. Agree with plan to perform repeat CT chest and consider removal of chest tubes afterwards. Medical and aerosol regimen should remain unchanged for the present time. Objective - Vital Signs/Intake and Output Vital Signs (last 24 hours): Temp Pulse Resp BP Pulse Ox 97.9 F 98 H 20 128/54 L 99 10/14/17 07:56 10/14/17 08:54 10/14/17 07:56 10/14/17 08:54 10/14/17 07:56 Intake and Output: 10/13/17 10/14/17 23:59 11:59 Intake Total 980 136 Output Total 530 376 Balance 450 -240 - Medications Medications: Current Medications Albuterol/Ipratropium (Duoneb 3 Mg/0.5 Mg (3 Ml) Ud) 3 ml INH RQID [facility] Last Admin: 10/14/17 08:00 Dose: 3 ml Atorvastatin Calcium (Lipitor) 40 mg PO DAILY@2100 [facility] Last Admin: 10/13/17 20:57 Dose: 40 mg Dextrose (Dextrose 50% Inj) 0 ml IV STAT PRN; Protocol PRN Reason: Hypoglycemia Protocol Dextrose (Glutose 15) 0 gm PO ONCE PRN; Protocol PRN Reason: Hypoglycemia Protocol Enoxaparin Sodium (Lovenox) 70 mg SC Q12 ULISES PRN Reason: Protocol Last Admin: 10/14/17 08:55 Dose: 70 mg Famotidine (Pepcid) 20 mg PO DAILY [facility] Last Admin: 10/14/17 08:57 Dose: 20 mg Finasteride (Proscar) 5 mg PO DAILY [facility] Last Admin: 10/14/17 08:57 Dose: 5 mg Gabapentin (Neurontin) 300 mg PO HS [facility] Last Admin: 10/13/17 21:00 Dose: 300 mg Glucagon (Glucagen Diagnostic Kit) 0 mg IM STAT PRN; Protocol PRN Reason: Hypoglycemia Protocol Hydrochlorothiazide (Microzide) 12.5 mg PO DAILY [facility] Last Admin: 10/08/17 14:04 Dose: Not Given Meropenem 1 gm/ Sodium (Chloride) 100 mls @ 100 mls/hr IVPB Q12 ULISES PRN Reason: Protocol Last Admin: 10/14/17 08:56 Dose: 100 mls/hr Vancomycin HCl 750 mg/ Sodium (Chloride) 250 mls @ 166.667 mls/hr IVPB Q12 [facility] PRN Reason: Protocol Last Admin: 10/14/17 08:57 Dose: 166.667 mls/hr Insulin Detemir (Levemir) 10 units SC HS [facility] Last Admin: 10/13/17 22:47 Dose: Not Given Insulin Human Regular (Humulin R) 0 units SC ACHS [facility] PRN Reason: Protocol Last Admin: 10/14/17 06:42 Dose: Not Given Levalbuterol HCl (Xopenex) 0.63 mg INH RQ4 PRN PRN Reason: Shortness of Breath Last Admin: 10/08/17 13:00 Dose: 0.63 mg Losartan Potassium (Cozaar) 50 mg PO DAILY [facility] Last Admin: 10/14/17 08:54 Dose: 50 mg Morphine Sulfate (Morphine) 2 mg IVP Q4 PRN PRN Reason: Pain, moderate (4-7) Last Admin: 10/14/17 09:04 Dose: 2 mg Morphine Sulfate (Morphine) 4 mg IVP Q4 PRN PRN Reason: Pain, severe (8-10) Last Admin: 10/13/17 22:30 Dose: 4 mg Ondansetron HCl (Zofran Inj) 4 mg IVP Q6 PRN PRN Reason: Nausea/Vomiting Oxycodone HCl (Oxycodone Immediate Release Tab) 5 mg PO Q6 PRN PRN Reason: Pain, Mild (1-3) Last Admin: 10/11/17 10:05 Dose: 5 mg Repaglinide (Prandin) 1 mg PO TIDAC [facility] Last Admin: 10/14/17 08:57 Dose: Not Given Senna/Docusate Sodium (Senokot S 50 Mg-8.6 Mg) 2 tab PO HS [facility] Last Admin: 10/13/17 20:59 Dose: 2 tab - Labs Labs: 10/14/17 05:25 10/14/17 05:25 PT 13.3 Seconds (9.8-13.1) H 10/07/17 16:35 INR 1.2 10/07/17 16:35 APTT 34.1 Seconds (25.6-37.1) 10/07/17 16:35
--- NOTE | 2017-10-14 11:35 | CP.PCM.PN ---
Subjective - Date & Time of Evaluation Date of Evaluation: 10/14/17 Time of Evaluation: 08:00 - Subjective Subjective: Patient seen and examined at bedside. Denies SOB, weakness, dizziness, fevers or chills. Reports had a normal bowel movement yesterday. Has normal appetite. Pain in area of left chest tube insertion sites persist and is controlled with medication. Objective - Vital Signs/Intake and Output Vital Signs (last 24 hours): Temp Pulse Resp BP Pulse Ox 97.9 F 98 H 20 128/54 L 99 10/14/17 07:56 10/14/17 08:54 10/14/17 07:56 10/14/17 08:54 10/14/17 07:56 Intake and Output: 10/14/17 10/14/17 06:59 18:59 Intake Total 426 120 Output Total 376 Balance 50 120 - Medications Medications: Current Medications Albuterol/Ipratropium (Duoneb 3 Mg/0.5 Mg (3 Ml) Ud) 3 ml INH RQID [facility] Last Admin: 10/14/17 08:00 Dose: 3 ml Atorvastatin Calcium (Lipitor) 40 mg PO DAILY@2100 [facility] Last Admin: 10/13/17 20:57 Dose: 40 mg Dextrose (Dextrose 50% Inj) 0 ml IV STAT PRN; Protocol PRN Reason: Hypoglycemia Protocol Dextrose (Glutose 15) 0 gm PO ONCE PRN; Protocol PRN Reason: Hypoglycemia Protocol Enoxaparin Sodium (Lovenox) 70 mg SC Q12 ULISES PRN Reason: Protocol Last Admin: 10/14/17 08:55 Dose: 70 mg Famotidine (Pepcid) 20 mg PO DAILY [facility] Last Admin: 10/14/17 08:57 Dose: 20 mg Finasteride (Proscar) 5 mg PO DAILY [facility] Last Admin: 10/14/17 08:57 Dose: 5 mg Gabapentin (Neurontin) 300 mg PO HS [facility] Last Admin: 10/13/17 21:00 Dose: 300 mg Glucagon (Glucagen Diagnostic Kit) 0 mg IM STAT PRN; Protocol PRN Reason: Hypoglycemia Protocol Hydrochlorothiazide (Microzide) 12.5 mg PO DAILY [facility] Last Admin: 10/08/17 14:04 Dose: Not Given Meropenem 1 gm/ Sodium (Chloride) 100 mls @ 100 mls/hr IVPB Q12 [facility] PRN Reason: Protocol Last Admin: 10/14/17 08:56 Dose: 100 mls/hr Vancomycin HCl 750 mg/ Sodium (Chloride) 250 mls @ 166.667 mls/hr IVPB Q12 [facility] PRN Reason: Protocol Last Admin: 10/14/17 08:57 Dose: 166.667 mls/hr Insulin Detemir (Levemir) 10 units SC HS [facility] Last Admin: 10/13/17 22:47 Dose: Not Given Insulin Human Regular (Humulin R) 0 units SC ACHS [facility] PRN Reason: Protocol Last Admin: 10/14/17 06:42 Dose: Not Given Levalbuterol HCl (Xopenex) 0.63 mg INH RQ4 PRN PRN Reason: Shortness of Breath Last Admin: 10/08/17 13:00 Dose: 0.63 mg Losartan Potassium (Cozaar) 50 mg PO DAILY [facility] Last Admin: 10/14/17 08:54 Dose: 50 mg Morphine Sulfate (Morphine) 2 mg IVP Q4 PRN PRN Reason: Pain, moderate (4-7) Last Admin: 10/14/17 09:04 Dose: 2 mg Morphine Sulfate (Morphine) 4 mg IVP Q4 PRN PRN Reason: Pain, severe (8-10) Last Admin: 10/13/17 22:30 Dose: 4 mg Ondansetron HCl (Zofran Inj) 4 mg IVP Q6 PRN PRN Reason: Nausea/Vomiting Oxycodone HCl (Oxycodone Immediate Release Tab) 5 mg PO Q6 PRN PRN Reason: Pain, Mild (1-3) Last Admin: 10/11/17 10:05 Dose: 5 mg Repaglinide (Prandin) 1 mg PO TIDAC [facility] Last Admin: 10/14/17 08:57 Dose: Not Given Senna/Docusate Sodium (Senokot S 50 Mg-8.6 Mg) 2 tab PO HS [facility] Last Admin: 10/13/17 20:59 Dose: 2 tab - Labs Labs: 10/14/17 05:25 10/14/17 05:25 PT 13.3 Seconds (9.8-13.1) H 10/07/17 16:35 INR 1.2 10/07/17 16:35 APTT 34.1 Seconds (25.6-37.1) 10/07/17 16:35 - Constitutional Appears: No Acute Distress - Head Exam Head Exam: ATRAUMATIC, NORMOCEPHALIC - Eye Exam Eye Exam: EOMI - ENT Exam ENT Exam: Mucous Membranes Moist - Neck Exam Neck Exam: Full ROM - Respiratory Exam Respiratory Exam: Decreased Breath Sounds (bilateral, diffuse), Rales (minimal in lower lobes), NORMAL BREATHING PATTERN. absent: Rhonchi, Wheezes Additional comments: minimal palpable left parasternal emphysema; chest tubes in place, dressing c/d/ i, left anterior chest tube: 150 cc serosanguineous fluid, left posterior chest tube: 550 cc serosanguineous fluid - Cardiovascular Exam Cardiovascular Exam: +S1, +S2 Additional comments: distant heart sounds - GI/Abdominal Exam GI & Abdominal Exam: Soft, Normal Bowel Sounds. absent: Tenderness - Extremities Exam Extremities Exam: Full ROM. absent: Pedal Edema, Tenderness Additional comments: right upper extremity swelling improved - Neurological Exam Neurological Exam: Alert, Awake, CN II-XII Intact, Oriented x3 - Psychiatric Exam Psychiatric exam: Normal Affect, Normal Mood - Skin Skin Exam: Dry, Normal Color, Warm Assessment and Plan - Assessment and Plan (Free Text) Assessment: 76 yr old M admitted for left pneumothorax which developed s/p lung biopsy, now POD #5 s/p left anterior and posterior chest tubes placement. Patient has PMHx of HTN, COPD, DM2, atrial fibrillation. Plan: Left lung Pneumothorax -repeat CXR no penumothorax/effusions appreciated -Thoracic Surgery Consult, Dr. Justice: daily CXR, repeat CT chest monday10/16/17, clamp tubes x 24 hrs, consider discontinue chest tubes Monday10/17/17 -s/p POD #5 left anterior and posterior chest tubes placement -s/p Left lung biopsy at [facility] on 10/04/[address] Hameed convey organized pneumonia -10/07/17: CT Chest: Left lung Pneumothorax, 40% lung collapsed -10/10/17: CT chest: no significant pneumothorax following placement of second chest tube, improved aeration and expansion -Pulmonology Consult appreciated: Dr. Hameed, will follow recommendations -Continue high flow O2 supplementation via nasal cannula, monitor respiratory status -Mycoplasma Igm and Legionella Ur Ag negative Blood cultures positive for gram+ cocci -10/07/2017 GPC+ in anaerobic sample, possible contaminant. 10/09 blood culture gram + bacilli -repeat blood cultures 10/10 no growth after 96 hours -ID consult appreciated; Meropenem 1 gm IV Q12 #6 w/ plans to d/c Meropenem once chest tubes are removed. -Vancomycin 750 mg Q12 day #5 with trough goal <20. Vanc trough 10/13/17: 10.4. -will follow TTE to check for vegetations Atrial Fibrillation -Chronic, asymptomatic -Cardiology consult appreciated: Dr. Last -Coumadin held per Dr. Last, latest INR 10/07/17 1.2 -was previously on digoxin, but this was d/c by Dr. Last in May due to detection of brief pauses EKG -no beta blockers as patient has limited respiratory reserve -Now on Lovenox 70 mg SC Q12 COPD -severe, chronic, Controlled -Pulmonology consult appreciated: Dr. Hameed -continue with Duonebs INH RQID ULISES, Xopenex INH RQ4 PRN -hold Spiriva 18 mcg INH QD, hold Advair Diskus 500/50 1 puff IH Q12: per pulmonology -hold Ventolin HFA 2 puff IH Q6 PRN -monitor respiratory status Elevated ProBNP and Troponin -Echo done 10/12/17: results pending -serial troponins trending down -last echo in May showed EF 40-40%. However, per Dr. Last, patient has preserved left ventricular systolic function and elevated troponins are likely 2 /2 tachycardia induced myocyte injury -EKG findings likely 2/2 pneumothorax shifting mediastinum Left Lung Nodule, s/p Lung Biopsy on 10/04/17 at [facility] -bx showed organized pneumonia per Dr. Hameed who spoke w/ Faustino Noriega -awaiting official path report Diabetes Mellitus type 2 -chronic, controlled -Repaglinide 2mg TID decreased to 1mg PO TIDAC due to hypoglycemia -continue with home medications: Levemir 10 SC QHS. Insulin regular coverage scale added -Hypoglycemic treatment protocol in place -Renzo CHILDS -Last HBA1C: 7.7 on 05/2017 -Diet: heart healthy, low carbohydrate Hypertension -chronic, controlled -continue home medication: Losartan 50 mg PO QD -HCTZ held -monitor BP HLD -chronic, controlled -continue home medication: atorvastatin 40mg DVT Prophylaxis -Now on Lovenox 70 mg SC Q12 -Discussed risks and benefits w/ hematology specialist Full Code -Next of kin: , [place] [phone]
--- NOTE | 2017-10-14 12:21 | CARD ---
APPROVED REPORT Date of service: 10/13/2017 EXAM: Two-dimensional and M-mode echocardiogram with Doppler and color Doppler. Other Information Quality : AverageRhythm : Atrial Fibrillation Technically limited study due to CHEST TUBES INDICATION COPD Elevated Troponins 2D DIMENSIONS IVSd1.08 (0.7-1.1cm)LVDd4.17 (3.9-5.9cm) LVOT Diameter2.04 (1.8-2.4cm)PWd0.89 (0.7-1.1cm) IVSs1.34 (0.8-1.2cm)LVDs2.74 (2.5-4.0cm) FS (%) 34.5 %PWs1.20 (0.8-1.2cm) M-Mode DIMENSIONS Left Atrium (MM)3.44 (2.5-4.0cm)Aortic Root2.72 (2.2-3.7cm) Aortic Cusp Exc.1.19 (1.5-2.0cm) Aortic Valve AoV Peak Smnnygcf368.8cm/sAoV VTI19.9cmAO Peak GR.6mmHg LVOT Peak Vymbibwr76.8cm/Chikis Mean GR.4mmHgAVA (VMAX)1.11cm2 Mitral Valve E/A ratio0.0 TDI E/Lateral E'0.0E/Medial E'0.0 LEFT VENTRICLE The left ventricle is normal size. There is normal left ventricular wall thickness. Left ventricle systolic function is normal. The Ejection Fraction is 60-65%. Individual regional wall motion could not be adequately assesed but, over alll LV segmental wall motion appeared normal Pt in A Fib RIGHT VENTRICLE The right ventricle is normal size. The right ventricular systolic function is normal. ATRIA The left atrium size is normal. The right atrium size is normal. AORTIC VALVE Could not be well visualised, but appeard sclerotic but not stenotic No aortic regurgitation is present. There is no aortic valvular stenosis. MITRAL VALVE The mitral valve is normal in structure. There is no mitral valve stenosis. There is no mitral valve regurgitation noted. TRICUSPID VALVE The tricuspid valve is normal in structure. There is no tricuspid valve regurgitation noted. PULMONIC VALVE The pulmonic valve is not well visualized. There is no pulmonic valvular regurgitation. GREAT VESSELS The aortic root is normal in size. The IVC is normal in size and collapses >50% with inspiration. PERICARDIAL EFFUSION The pericardium appears normal. <Conclusion> Due to severe chr lung disease and a chest tube on the Lt side, a good echowindow was not available. The quality of the images was suboptimal. The left ventricle is normal size. There is normal left ventricular wall thickness. Individual regional wall motion could not be adequately assesed but, over alll LV segmental wall motion appeared normal Left ventricle systolic function is normal. The Ejection Fraction is 60-65%.
--- NOTE | 2017-10-14 15:30 | CP.PCM.PN ---
Subjective - Date & Time of Evaluation Date of Evaluation: 10/14/17 Time of Evaluation: 15:29 - Subjective Subjective: ID note- Pt. seen and examined today . his is at his bedside. Patient is in good spirits and states he feels fine. denies any sob. denies any fever or chills, denies any diarrhea. Objective - Vital Signs/Intake and Output Vital Signs (last 24 hours): Temp Pulse Resp BP Pulse Ox 97.9 F 90 9 L 110/57 L 98 10/14/17 07:56 10/14/17 12:00 10/14/17 12:00 10/14/17 10:00 10/14/17 12:00 Intake and Output: 10/14/17 10/14/17 06:59 18:59 Intake Total 426 474 Output Total 376 Balance 50 474 - Medications Medications: Current Medications Albuterol/Ipratropium (Duoneb 3 Mg/0.5 Mg (3 Ml) Ud) 3 ml INH RQID [facility] Last Admin: 10/14/17 12:51 Dose: 3 ml Atorvastatin Calcium (Lipitor) 40 mg PO DAILY@2100 [facility] Last Admin: 10/13/17 20:57 Dose: 40 mg Dextrose (Dextrose 50% Inj) 0 ml IV STAT PRN; Protocol PRN Reason: Hypoglycemia Protocol Dextrose (Glutose 15) 0 gm PO ONCE PRN; Protocol PRN Reason: Hypoglycemia Protocol Enoxaparin Sodium (Lovenox) 70 mg SC Q12 ULISES PRN Reason: Protocol Last Admin: 10/14/17 08:55 Dose: 70 mg Famotidine (Pepcid) 20 mg PO DAILY [facility] Last Admin: 10/14/17 08:57 Dose: 20 mg Finasteride (Proscar) 5 mg PO DAILY [facility] Last Admin: 10/14/17 08:57 Dose: 5 mg Gabapentin (Neurontin) 300 mg PO HS [facility] Last Admin: 10/13/17 21:00 Dose: 300 mg Glucagon (Glucagen Diagnostic Kit) 0 mg IM STAT PRN; Protocol PRN Reason: Hypoglycemia Protocol Hydrochlorothiazide (Microzide) 12.5 mg PO DAILY [facility] Last Admin: 10/08/17 14:04 Dose: Not Given Meropenem 1 gm/ Sodium (Chloride) 100 mls @ 100 mls/hr IVPB Q12 ULISES PRN Reason: Protocol Last Admin: 10/14/17 08:56 Dose: 100 mls/hr Vancomycin HCl 750 mg/ Sodium (Chloride) 250 mls @ 166.667 mls/hr IVPB Q12 ULISES PRN Reason: Protocol Last Admin: 10/14/17 08:57 Dose: 166.667 mls/hr Insulin Detemir (Levemir) 10 units SC HS [facility] Last Admin: 10/13/17 22:47 Dose: Not Given Insulin Human Regular (Humulin R) 0 units SC ACHS [facility] PRN Reason: Protocol Last Admin: 10/14/17 12:44 Dose: 1 unit Levalbuterol HCl (Xopenex) 0.63 mg INH RQ4 PRN PRN Reason: Shortness of Breath Last Admin: 10/08/17 13:00 Dose: 0.63 mg Losartan Potassium (Cozaar) 50 mg PO DAILY [facility] Last Admin: 10/14/17 08:54 Dose: 50 mg Morphine Sulfate (Morphine) 2 mg IVP Q4 PRN PRN Reason: Pain, moderate (4-7) Last Admin: 10/14/17 09:04 Dose: 2 mg Morphine Sulfate (Morphine) 4 mg IVP Q4 PRN PRN Reason: Pain, severe (8-10) Last Admin: 10/13/17 22:30 Dose: 4 mg Ondansetron HCl (Zofran Inj) 4 mg IVP Q6 PRN PRN Reason: Nausea/Vomiting Oxycodone HCl (Oxycodone Immediate Release Tab) 5 mg PO Q6 PRN PRN Reason: Pain, Mild (1-3) Last Admin: 10/11/17 10:05 Dose: 5 mg Repaglinide (Prandin) 1 mg PO TIDAC [facility] Last Admin: 10/14/17 08:57 Dose: Not Given Senna/Docusate Sodium (Senokot S 50 Mg-8.6 Mg) 2 tab PO HS [facility] Last Admin: 10/13/17 20:59 Dose: 2 tab - Labs Labs: - Additional Findings Additional findings: - Constitutional Appears: NAD - Head Exam Head Exam: ATRAUMATIC - Eye Exam Eye Exam: EOMI, PERRL - ENT Exam ENT Exam: Normal Oropharynx - Neck Exam Neck exam: Positive for: Full Rom - Respiratory Exam Additional comments: decreased breath sounds in left base no wheezing has 2 chest tubes in left chest , one anterior and one posterior draining serosanguinous fluid left chest subcutaneous crepitus much less - Cardiovascular Exam Cardiovascular Exam: Tachycardia, +S1, +S2 - GI/Abdominal Exam GI & Abdominal Exam: Normal Bowel Sounds, Soft Additional comments: NT, ND - Extremities Exam Extremities exam: Positive for: normal inspection Additional comments: no edema B/L LE - Neurological Exam Neurological exam: Alert, Oriented x 3 Laboratory Results - last 72 hr 10/11/17 10/11/17 10/11/17 12:16 16:51 21:53 WBC RBC Hgb Hct MCV MCH MCHC RDW Plt Count MPV Neut % (Auto) Lymph % (Auto) [place] % (Auto) Eos % (Auto) Baso % (Auto) Neut # (Auto) Lymph # (Auto) [place] # (Auto) Eos # (Auto) Baso # (Auto) Sodium Potassium Chloride Carbon Dioxide Anion Gap BUN Creatinine Est GFR ( Amer) Est GFR (Non-Af Amer) POC Glucose (mg/dL) 266 H 154 H 59 L Random Glucose Calcium Total Bilirubin AST ALT Alkaline Phosphatase Total Protein Albumin Globulin Albumin/Globulin Ratio Urine Color Urine Clarity Urine pH Ur Specific [place] Urine Protein Urine Glucose (UA) Urine Ketones Urine Blood Urine Nitrate Urine Bilirubin Urine Urobilinogen Ur Leukocyte Esterase Urine RBC (Auto) Urine Microscopic WBC Vancomycin Trough 10/11/17 10/11/17 10/12/17 21:55 23:25 04:50 WBC RBC Hgb Hct MCV MCH MCHC RDW Plt Count MPV Neut % (Auto) Lymph % (Auto) [place] % (Auto) Eos % (Auto) Baso % (Auto) Neut # (Auto) Lymph # (Auto) [place] # (Auto) Eos # (Auto) Baso # (Auto) Sodium 139 Potassium 4.2 Chloride 100 Carbon Dioxide 33 H Anion Gap 10 BUN 34 H Creatinine 0.7 L Est GFR ( Amer) > 60 Est GFR (Non-Af Amer) > 60 POC Glucose (mg/dL) 48 L 143 H Random Glucose 83 Calcium 8.6 Total Bilirubin 1.2 AST 42 ALT 44 Alkaline Phosphatase 45 Total Protein 5.3 L Albumin 2.8 L Globulin 2.5 Albumin/Globulin Ratio 1.1 Urine Color Urine Clarity Urine pH Ur Specific [place] Urine Protein Urine Glucose (UA) Urine Ketones Urine Blood Urine Nitrate Urine Bilirubin Urine Urobilinogen Ur Leukocyte Esterase Urine RBC (Auto) Urine Microscopic WBC Vancomycin Trough 10/12/17 10/12/17 10/12/17 04:50 06:00 06:32 WBC 8.1 RBC 3.70 L Hgb 12.0 Hct 34.1 L MCV 92.2 MCH 32.5 H MCHC 35.3 RDW 13.6 Plt Count 217 MPV 7.6 Neut % (Auto) 67.2 Lymph % (Auto) 17.3 L [place] % (Auto) 10.3 H Eos % (Auto) 4.8 H Baso % (Auto) 0.4 Neut # (Auto) 5.4 Lymph # (Auto) 1.4 [place] # (Auto) 0.8 Eos # (Auto) 0.4 Baso # (Auto) 0.0 Sodium Potassium Chloride Carbon Dioxide Anion Gap BUN Creatinine Est GFR ( Amer) Est GFR (Non-Af Amer) POC Glucose (mg/dL) 81 Random Glucose Calcium Total Bilirubin AST ALT Alkaline Phosphatase Total Protein Albumin Globulin Albumin/Globulin Ratio Urine Color Yellow Urine Clarity Slighty-cloudy Urine pH 5.0 Ur Specific [place] 1.024 Urine Protein Negative Urine Glucose (UA) 150 Urine Ketones Negative Urine Blood Negative Urine Nitrate Negative Urine Bilirubin Negative Urine Urobilinogen 0.2-1.0 Ur Leukocyte Esterase Neg Urine RBC (Auto) 1 Urine Microscopic WBC 2 Vancomycin Trough 10/12/17 10/12/17 10/12/17 11:36 16:36 19:53 WBC RBC Hgb Hct MCV MCH MCHC RDW Plt Count MPV Neut % (Auto) Lymph % (Auto) [place] % (Auto) Eos % (Auto) Baso % (Auto) Neut # (Auto) Lymph # (Auto) [place] # (Auto) Eos # (Auto) Baso # (Auto) Sodium Potassium Chloride Carbon Dioxide Anion Gap BUN Creatinine Est GFR ( Amer) Est GFR (Non-Af Amer) POC Glucose (mg/dL) 208 H 110 103 Random Glucose Calcium Total Bilirubin AST ALT Alkaline Phosphatase Total Protein Albumin Globulin Albumin/Globulin Ratio Urine Color Urine Clarity Urine pH Ur Specific [place] Urine Protein Urine Glucose (UA) Urine Ketones Urine Blood Urine Nitrate Urine Bilirubin Urine Urobilinogen Ur Leukocyte Esterase Urine RBC (Auto) Urine Microscopic WBC Vancomycin Trough 10/13/17 10/13/17 10/13/17 05:15 05:15 05:15 WBC 9.1 RBC 3.97 L Hgb 12.8 Hct 36.9 MCV 92.9 MCH 32.2 H MCHC 34.6 RDW 13.3 Plt Count 241 MPV Neut % (Auto) Lymph % (Auto) [place] % (Auto) Eos % (Auto) Baso % (Auto) Neut # (Auto) Lymph # (Auto) [place] # (Auto) Eos # (Auto) Baso # (Auto) Sodium 140 Potassium 4.7 Chloride 100 Carbon Dioxide 32 H Anion Gap 13 BUN 29 H Creatinine 0.8 Est GFR ( Amer) > 60 Est GFR (Non-Af Amer) > 60 POC Glucose (mg/dL) Random Glucose 115 H Calcium 9.2 Total Bilirubin 1.4 H AST 40 ALT 41 Alkaline Phosphatase 53 Total Protein 5.9 L Albumin 3.3 L Globulin 2.6 Albumin/Globulin Ratio 1.3 Urine Color Urine Clarity Urine pH Ur Specific [place] Urine Protein Urine Glucose (UA) Urine Ketones Urine Blood Urine Nitrate Urine Bilirubin Urine Urobilinogen Ur Leukocyte Esterase Urine RBC (Auto) Urine Microscopic WBC Vancomycin Trough 10.4 H 10/13/17 10/13/17 10/13/17 05:41 11:45 15:55 WBC RBC Hgb Hct MCV MCH MCHC RDW Plt Count MPV Neut % (Auto) Lymph % (Auto) [place] % (Auto) Eos % (Auto) Baso % (Auto) Neut # (Auto) Lymph # (Auto) [place] # (Auto) Eos # (Auto) Baso # (Auto) Sodium Potassium Chloride Carbon Dioxide Anion Gap BUN Creatinine Est GFR ( Amer) Est GFR (Non-Af Amer) POC Glucose (mg/dL) 103 176 H 207 H Random Glucose Calcium Total Bilirubin AST ALT Alkaline Phosphatase Total Protein Albumin Globulin Albumin/Globulin Ratio Urine Color Urine Clarity Urine pH Ur Specific [place] Urine Protein Urine Glucose (UA) Urine Ketones Urine Blood Urine Nitrate Urine Bilirubin Urine Urobilinogen Ur Leukocyte Esterase Urine RBC (Auto) Urine Microscopic WBC Vancomycin Trough 10/14/17 10/14/17 05:25 05:25 WBC 9.0 RBC 3.84 L Hgb 12.2 Hct 35.5 MCV 92.3 MCH 31.7 H MCHC 34.3 RDW 13.5 Plt Count 229 MPV Neut % (Auto) Lymph % (Auto) [place] % (Auto) Eos % (Auto) Baso % (Auto) Neut # (Auto) Lymph # (Auto) [place] # (Auto) Eos # (Auto) Baso # (Auto) Sodium 138 Potassium 4.2 Chloride 102 Carbon Dioxide 34 H Anion Gap 6 L BUN 24 H Creatinine 0.7 L Est GFR ( Amer) > 60 Est GFR (Non-Af Amer) > 60 POC Glucose (mg/dL) Random Glucose 87 Calcium 8.9 Total Bilirubin 1.0 AST 36 ALT 33 Alkaline Phosphatase 51 Total Protein 5.6 L Albumin 3.0 L Globulin 2.6 Albumin/Globulin Ratio 1.2 Urine Color Urine Clarity Urine pH Ur Specific [place] Urine Protein Urine Glucose (UA) Urine Ketones Urine Blood Urine Nitrate Urine Bilirubin Urine Urobilinogen Ur Leukocyte Esterase Urine RBC (Auto) Urine Microscopic WBC Vancomycin Trough Microbiology 10/10/17 10:40 Blood-Venous Blood Culture - Preliminary NO GROWTH AFTER 4 DAYS 10/10/17 16:30 Pleural Fluid Gram Stain - Final 10/10/17 16:30 Pleural Fluid Body Fluid Culture - Preliminary NO GROWTH AFTER 3 DAYS 10/09/17 18:00 Blood-Venous Blood Culture - Preliminary Gram Positive Michael 10/09/17 18:00 Blood-Venous Gram Stain - Final 10/10/17 19:26 Urine Urine Culture - Final No Growth (<1,000 CFU/ML) 10/07/17 16:35 Blood-Venous Blood Culture - Final NO GROWTH AFTER 5 DAYS 10/07/17 16:35 Blood-Venous Gram Stain - Final TEST NOT PERFORMED 10/09/17 15:00 Other: Please Indicate Gram Stain - Final 10/09/17 15:00 Other: Please Indicate Wound Culture - Final No growth. 10/09/17 15:00 Other: Please Indicate Gram Stain - Final 10/09/17 15:00 Other: Please Indicate Wound Culture - Final No growth. 10/07/17 16:35 Blood-Venous S.aureus & Coag-Neg Staph PNA FISH - Final 10/07/17 16:35 Blood-Venous Blood Culture - Final Coagulase Neg Staphylococcus 10/07/17 16:35 Blood-Venous Gram Stain - Final 10/10/17 11:17 Sputum Gram Stain - Final 10/10/17 11:17 Sputum Sputum Culture - Final Yeast Species Accession No. : [id number] Patient Name / ID : [id number] / [id number] Exam Date : 10/14/2017 06:11:19 ( Approved ) Study Comment : Sex / Age : M / 76Y Creator : Tripp Pagan MD Dictator : Tripp Pagan MD Penal Officer : [employer] Consultant : Tripp Pagan MD Approver2 : Report Date : 10/14/2017 10:24:59 My Comment : Date of service: 10/14/2017 PROCEDURE: CHEST RADIOGRAPH, 1 VIEW HISTORY: chest tube evaluation COMPARISON: Chest radiograph dated 10/13/2017 FINDINGS: LUNGS: Bilateral COPD and fibrotic changes. No focal consolidation. PLEURA: Tenting of both hemidiaphragms, slightly increased. No pneumothorax or pleural fluid seen. CARDIOVASCULAR: Normal. OSSEOUS STRUCTURES: No significant abnormalities. VISUALIZED UPPER ABDOMEN: Normal. OTHER FINDINGS: Two large bore left-sided chest tubes, unchanged. Left chest wall subcutaneous emphysema, unchanged. IMPRESSION: Left-sided chest tubes in place. No appreciable pneumothorax. Similar left chest wall subcutaneous emphysema. Assessment and Plan (1) Pneumothorax Status: Acute (2) COPD exacerbation Status: Acute (3) Pulmonary nodules/lesions, multiple Status: Chronic (4) Leukocytosis Status: Resolved (5) Pulmonary emphysema Status: Chronic - Assessment and Plan (Free Text) Assessment: A/P- 76 year old male with multiple medical conditions including COPD, A.Fib, DM II s /p lung biopsy later developed pneumothorax s/p chest tuube 4 days ago , not improved and had developed left sided chest subcutaneous emphysema s/p 2 chest tubes 3 days ago afebrile leukocytosis resolved. blood cx from 10/07 - one out of 2 bottles reported coag neg staph ( most likely contaminant) repeat blood cx- neg x 1( 10/10/2017) blood cx from 10/09/2017- gram pos Rods ( anerobic bottle only)!!! OR cx- no growth mycoplasmaIGm- neg Urine legionellla Ag- Neg pleural fluid cx- neg sputum cx- yeast TTE report- no mention of vegetations as per report. Plan- the 1 out of 2 blood cx reported after 3 days and only on anaerobic bottle is most likely a contaminant. however since pt. has had multiple procedures scontinue with IV vanco , day #4 keep trough <20. yesterday reported gram pos rods from blood cx from 10/09/2017 anerobic bottle only, await ID of this. advise to continue with broad spectrum meropenem abx for nosocomial coverage pending further results. day #6 advise to check repeat blood cx x 2. All labs and imaging reviewed. ICU time 40 minutes.
[2017-10-14] MEDS: Docusate-Senna 50 mg-8.6 mg Tab PO SCH (21:07)
[2017-10-14] MEDS: Insulin Detemir 100 Units/ml Inj SC SCH (22:10)
[2017-10-15] MEDS: Insulin Regular 100 units/ml SC SCH ×4 (06:36→22:33)
[2017-10-15 07:14] LABS: HEMOGLOBIN 12.4 g/dL (12.0-18.0); MEAN CELL VOLUME 92.9 fl (80.0-94.0); MEAN CORPUSCULAR HEMOGLOBIN 32.3 pg (27.0-31.0); MEAN CORPUSCULAR HGB CONC 34.8 g/dL (33.0-37.0); RBC 3.85 Mil/uL (4.40-5.90); RED CELL DISTRIBUTION WIDTH 13.5 % (11.5-14.5); WHITE BLOOD COUNT 8.2 K/uL (4.8-10.8)
[2017-10-15] MEDS: Albuterol-Ipratrop 3 mg / 0.5 (3 ml) UD INH SCH ×4 (07:18→19:17)
[2017-10-15 07:27] LABS: ALB/GLOB RATIO 1.2 (1.0-2.1); ALBUMIN 3.1 g/dL (3.5-5.0); ALT/SGPT 52 U/L (21-72); AST/SGOT 55 U/L (17-59); BLOOD UREA NITROGEN 18 mg/dl (9-20); CALCIUM 8.8 mg/dL (8.4-10.2); GFR AFRICAN-AMERICAN > 60; GFR NON-AFRICAN AMERICAN > 60
[2017-10-15] MEDS: oxyCODONE 5 mg Immediate Release Tab PO PRN (07:58)
--- NOTE | 2017-10-15 07:58 | CP.PCM.PN ---
Subjective - Date & Time of Evaluation Date of Evaluation: 10/15/17 Time of Evaluation: 07:57 - Subjective Subjective: CT surgery progress note for Dr. Apple Garcia, PGY-2 Pt S & E at bedside at 0710 Pt resting comfortably in bed. Reports some chest wall pain, increased with movement. Admits to fatigue. Denies SOB, CP, N & V, F & C. Is getting OOBTC. Anterior CT with 61cc, posterior with 330 cc serosangunious output over 24 hrs , no airleaks in either. Changed dressing at bedside. Objective - Vital Signs/Intake and Output Vital Signs (last 24 hours): Temp Pulse Resp BP Pulse Ox 97.9 F 85 17 120/62 98 10/15/17 00:00 10/15/17 06:00 10/15/17 06:00 10/15/17 04:00 10/15/17 06:00 Intake and Output: 10/15/17 10/15/17 06:59 18:59 Intake Total 452 Output Total 976 Balance -524 - Medications Medications: Current Medications Albuterol/Ipratropium (Duoneb 3 Mg/0.5 Mg (3 Ml) Ud) 3 ml INH RQID [facility] Last Admin: 10/15/17 07:18 Dose: 3 ml Atorvastatin Calcium (Lipitor) 40 mg PO DAILY@2100 [facility] Last Admin: 10/14/17 20:01 Dose: 40 mg Dextrose (Dextrose 50% Inj) 0 ml IV STAT PRN; Protocol PRN Reason: Hypoglycemia Protocol Dextrose (Glutose 15) 0 gm PO ONCE PRN; Protocol PRN Reason: Hypoglycemia Protocol Enoxaparin Sodium (Lovenox) 70 mg SC Q12 ULISES PRN Reason: Protocol Last Admin: 10/14/17 20:01 Dose: 70 mg Famotidine (Pepcid) 20 mg PO DAILY [facility] Last Admin: 10/14/17 08:57 Dose: 20 mg Finasteride (Proscar) 5 mg PO DAILY [facility] Last Admin: 10/14/17 08:57 Dose: 5 mg Gabapentin (Neurontin) 300 mg PO HS [facility] Last Admin: 10/14/17 21:07 Dose: 300 mg Glucagon (Glucagen Diagnostic Kit) 0 mg IM STAT PRN; Protocol PRN Reason: Hypoglycemia Protocol Hydrochlorothiazide (Microzide) 12.5 mg PO DAILY [facility] Last Admin: 10/08/17 14:04 Dose: Not Given Meropenem 1 gm/ Sodium (Chloride) 100 mls @ 100 mls/hr IVPB Q12 [facility]ISES PRN Reason: Protocol Last Admin: 10/14/17 20:01 Dose: 100 mls/hr Vancomycin HCl 750 mg/ Sodium (Chloride) 250 mls @ 166.667 mls/hr IVPB Q12 [facility]ISES PRN Reason: Protocol Last Admin: 10/14/17 22:04 Dose: 166.667 mls/hr Insulin Detemir (Levemir) 10 units SC [facility] Last Admin: 10/14/17 22:10 Dose: 10 units Insulin Human Regular (Humulin R) 0 units SC [facility] PRN Reason: Protocol Last Admin: 10/15/17 06:36 Dose: Not Given Levalbuterol HCl (Xopenex) 0.63 mg INH RQ4 PRN PRN Reason: Shortness of Breath Last Admin: 10/08/17 13:00 Dose: 0.63 mg Losartan Potassium (Cozaar) 50 mg PO DAILY [facility] Last Admin: 10/14/17 08:54 Dose: 50 mg Morphine Sulfate (Morphine) 2 mg IVP Q4 PRN PRN Reason: Pain, moderate (4-7) Last Admin: 10/15/17 05:35 Dose: 2 mg Morphine Sulfate (Morphine) 4 mg IVP Q4 PRN PRN Reason: Pain, severe (8-10) Last Admin: 10/13/17 22:30 Dose: 4 mg Ondansetron HCl (Zofran Inj) 4 mg IVP Q6 PRN PRN Reason: Nausea/Vomiting Oxycodone HCl (Oxycodone Immediate Release Tab) 5 mg PO Q6 PRN PRN Reason: Pain, Mild (1-3) Last Admin: 10/11/17 10:05 Dose: 5 mg Repaglinide (Prandin) 1 mg PO TIDAC [facility] Last Admin: 10/14/17 16:30 Dose: 1 mg Senna/Docusate Sodium (Senokot S 50 Mg-8.6 Mg) 2 tab PO HS [facility] Last Admin: 10/14/17 21:07 Dose: 2 tab - Labs Labs: 10/15/17 05:52 10/15/17 05:52 PT 13.3 Seconds (9.8-13.1) H 10/07/17 16:35 INR 1.2 10/07/17 16:35 APTT 34.1 Seconds (25.6-37.1) 10/07/17 16:35 - Constitutional Appears: Non-toxic, No Acute Distress - Head Exam Head Exam: ATRAUMATIC, NORMAL INSPECTION, NORMOCEPHALIC - Eye Exam Eye Exam: EOMI, Normal appearance - ENT Exam ENT Exam: Mucous Membranes Moist, Normal Exam - Neck Exam Neck Exam: Full ROM, Normal Inspection - Respiratory Exam Respiratory Exam: Chest Wall Tenderness (minimal, over insertion sites), NORMAL BREATHING PATTERN. absent: Respiratory Distress - Cardiovascular Exam Cardiovascular Exam: REGULAR RHYTHM, +S1, +S2 - GI/Abdominal Exam GI & Abdominal Exam: Soft. absent: Tenderness - Neurological Exam Neurological Exam: Alert, Awake, CN II-XII Intact, Oriented x3 - Psychiatric Exam Psychiatric exam: Normal Affect, Normal Mood - Skin Skin Exam: Dry, Intact, Normal Color (excluding CT insertion sites- slightly erythematous around CT, minimal), Warm Assessment and Plan - Assessment and Plan (Free Text) Assessment: 77M w/L pneumothorax s/p chest tube insertion x 2 AM CXR- no pneumothorax Plan: Cont CT to wall suction Plan for CT Chest tomorrow, the possible 24h clamp trial tomorrow Possible d/c Monday pending CT findings Cont pain control PRN OOBTC Encourage IS use DW attending Radha, PGY-2
[2017-10-15] MEDS: Enoxaparin 80 mg Syringe SC SCH ×2 (08:00→20:25)
[2017-10-15] MEDS: Meropenem 1 GM in Sodium Chloride 0.9% 100 ML IVPB SCH ×2 (08:01→20:26)
--- NOTE | 2017-10-15 10:58 | RAD ---
Date of service: 10/15/2017 HISTORY: chest tube COMPARISON: Chest radiograph dated 10/14/2017. FINDINGS: LUNGS: Bilateral COPD and fibrotic changes. No focal consolidation. PLEURA: Tenting of the left hemidiaphragm. No appreciable pneumothorax. CARDIOVASCULAR: Normal. OSSEOUS STRUCTURES: Unchanged. VISUALIZED UPPER ABDOMEN: Normal. OTHER FINDINGS: Two large bore left-sided chest tubes, unchanged. Left chest wall subcutaneous emphysema, slightly decreased. IMPRESSION: Left-sided chest tubes in place. No appreciable pneumothorax. Slight decrease of left chest wall subcutaneous emphysema.
--- NOTE | 2017-10-15 12:49 | CP.CCUPN ---
CCU Subjective - Physician Review Events Since Last Encounter (Free Text): 10/15/17 12:47 alert and oriented , no sob, no pain, feeling goos and in good mood. CCU Objective - Vital Signs / Intake & Output Vital Signs (Last 4 hours): Vital Signs Temp Pulse Resp BP Pulse Ox 10/15/17 12:00 98.3 F 111 H 17 111/50 L 95 10/15/17 11:14 86 18 110/52 L 99 10/15/17 10:00 110 H 12 116/59 L 98 Intake and Output (Last 8hrs): Intake & Output 10/14/17 10/15/17 10/15/17 22:59 06:59 14:59 Intake Total 755 47 550 Output Total 1025 596 Balance -270 -549 550 Weight 159 lb 6.4 oz Intake: IV 5 22 Intake, Piggyback 350 350 Oral 400 25 200 Output: Chest Tube Drainage 195 196 Left Anterior Chest 35 26 Left Posterior Chest 160 170 Urine 830 400 Urine, Voided 830 400 - Physical Exam Narrative Physical Exam (Free Text): 10/15/17 12:47 P/E Neck: No JVD Lungs: No ronchi and crackles Abdomen: soft, non-tender Ext; No edema Heart: no gallop Head: Positive for: Atraumatic, Normocephalic Pupils: Positive for: PERRL Extroacular Muscles: Positive for: EOMI Conjunctiva: Positive for: Normal. Negative for: Icteric Mouth: Positive for: Moist Mucous Membranes Nose (External): Positive for: Atraumatic. Negative for: Abrasion Neck: Positive for: Normal Range of Motion, Trachea Midline Respiratory/Chest: Positive for: Good Air Exchange, Decreased Breath Sounds, Other (left anterior and posterior chest tube in place, draining serosanguineous fluids.). Negative for: Respiratory Distress, Accessory Muscle Use, Rales Cardiovascular: Positive for: Irregular Rhythm, Peripheal Pulses Present. Negative for: Murmurs, Normal S1, S2 Abdomen: Positive for: Normal Bowel Sounds. Negative for: Tenderness, Distention Upper Extremity: Positive for: Normal Inspection. Negative for: Edema Lower Extremity: Positive for: Normal Inspection, NORMAL PULSES. Negative for: Edema, CALF TENDERNESS Neurological: Positive for: Speech Normal, Motor Func Grossly Intact, Normal Sensory Function Skin: Positive for: Warm, Normal Color. Negative for: Rashes Psychiatric: Positive for: Alert, Oriented x 3 - Medications Active Medications: Active Medications Generic Name Dose Route Start Last Admin Trade Name Freq PRN Reason Stop Dose Admin Albuterol/Ipratropium 3 ml 10/08/17 12:00 10/15/17 11:31 Duoneb 3 Mg/0.5 Mg (3 Ml) Ud INH 3 ml RQID ULISES Administration Atorvastatin Calcium 40 mg 10/07/17 21:00 10/14/17 20:01 Lipitor PO 40 mg DAILY@2100 ULISES Administration Dextrose 0 ml 10/07/17 19:49 Dextrose 50% Inj IV STAT PRN Hypoglycemia Protocol Protocol Dextrose 0 gm 10/07/17 19:49 Glutose 15 PO ONCE PRN Hypoglycemia Protocol Protocol Enoxaparin Sodium 70 mg 10/12/17 21:00 10/15/17 08:00 Lovenox SC 70 mg Q12 ULISES Administration Protocol Famotidine 20 mg 10/08/17 13:15 10/15/17 08:08 Pepcid PO 20 mg DAILY ULISES Administration Finasteride 5 mg 10/08/17 09:00 10/15/17 08:02 Proscar PO 5 mg DAILY ULISES Administration Gabapentin 300 mg 10/07/17 22:00 10/14/17 21:07 Neurontin PO 300 mg HS ULISES Administration Glucagon 0 mg 10/07/17 19:49 Glucagen Diagnostic Kit IM STAT PRN Hypoglycemia Protocol Protocol Hydrochlorothiazide 12.5 mg 10/08/17 09:00 10/08/17 14:04 Microzide PO Not Given DAILY ULISES Meropenem 1 gm/ Sodium 100 mls @ 100 mls/hr 10/09/17 21:00 10/15/17 08:01 Chloride IVPB 100 mls/hr Q12 ULISES Administration Protocol Vancomycin HCl 750 mg/ Sodium 250 mls @ 166.667 mls/hr 10/10/17 21:00 08:02 Chloride IVPB 166.667 mls/hr Q12 ULISES Administration Protocol Insulin Detemir 10 units 10/07/17 22:00 10/14/17 22:10 Levemir SC 10 units HS ULISES Administration Insulin Human Regular 0 units 10/11/17 13:17 10/15/17 11:33 Humulin R SC Not Given ACHS ULISES Protocol Levalbuterol HCl 0.63 mg 10/08/17 09:07 10/08/17 13:00 Xopenex INH 0.63 mg RQ4 PRN Administration Shortness of Breath Losartan Potassium 50 mg 10/08/17 09:00 10/15/17 07:59 Cozaar PO 50 mg DAILY ULISES Administration Morphine Sulfate 2 mg 10/10/17 09:12 10/15/17 11:12 Morphine IVP 2 mg Q4 PRN Administration Pain, moderate (4-7) Morphine Sulfate 4 mg 10/10/17 16:50 10/13/17 22:30 Morphine IVP 4 mg Q4 PRN Administration Pain, severe (8-10) Ondansetron HCl 4 mg 10/09/17 15:01 Zofran Inj IVP Q6 PRN Nausea/Vomiting Oxycodone HCl 5 mg 10/09/17 16:27 10/15/17 07:58 Oxycodone Immediate Release Tab PO 5 mg Q6 PRN Administration Pain, Mild (1-3) Repaglinide 1 mg 10/12/17 16:30 10/15/17 11:36 Prandin PO 1 mg TIDAC ULISES Administration Senna/Docusate Sodium 2 tab 10/10/17 22:00 10/14/17 21:07 Senokot S 50 Mg-8.6 Mg PO 2 tab HS ULISES Administration - Patient Studies Lab Studies: Microbiology Studies 10/10/17 10:40 Blood Culture - Final Blood-Venous NO GROWTH AFTER 5 DAYS Gram Stain - Final TEST NOT PERFORMED 10/13/17 19:56 Blood Culture - Preliminary Blood-Venous NO GROWTH AFTER 24 HOURS 10/13/17 19:46 Blood Culture - Preliminary Blood-Venous NO GROWTH AFTER 24 HOURS Lab Studies 10/15/17 10/15/17 Range/Units 05:52 05:52 WBC 8.2 (4.8-10.8) K/uL RBC 3.85 L (4.40-5.90) Mil/uL Hgb 12.4 (12.0-18.0) g/dL Hct 35.8 (35.0-51.0) % MCV 92.9 (80.0-94.0) fl MCH 32.3 H (27.0-31.0) pg MCHC 34.8 (33.0-37.0) g/dL RDW 13.5 (11.5-14.5) % Plt Count 242 (130-400) K/uL Sodium 137 (132-148) mmol/l Potassium 4.2 (3.6-5.0) MMOL/L Chloride 101 (98-107) mmol/L Carbon Dioxide 30 (22-30) mmol/L Anion Gap 10 (10-20) BUN 18 (9-20) mg/dl Creatinine 0.6 L (0.8-1.5) mg/dl Est GFR ( Amer) > 60 Est GFR (Non-Af Amer) > 60 Random Glucose 93 (75-110) mg/dL Calcium 8.8 (8.4-10.2) mg/dL Total Bilirubin 0.9 (0.2-1.3) mg/dl AST 55 (17-59) U/L ALT 52 (21-72) U/L Alkaline Phosphatase 56 (38-126) U/L Total Protein 5.7 L (6.3-8.2) G/DL Albumin 3.1 L (3.5-5.0) g/dL Globulin 2.6 (2.2-3.9) gm/dL Albumin/Globulin Ratio 1.2 (1.0-2.1) Laboratory Results - last 24 hr 10/15/17 10/15/17 05:52 05:52 WBC 8.2 RBC 3.85 L Hgb 12.4 Hct 35.8 MCV 92.9 MCH 32.3 H MCHC 34.8 RDW 13.5 Plt Count 242 Sodium 137 Potassium 4.2 Chloride 101 Carbon Dioxide 30 Anion Gap 10 BUN 18 Creatinine 0.6 L Est GFR ( Amer) > 60 Est GFR (Non-Af Amer) > 60 Random Glucose 93 Calcium 8.8 Total Bilirubin 0.9 AST 55 ALT 52 Alkaline Phosphatase 56 Total Protein 5.7 L Albumin 3.1 L Globulin 2.6 Albumin/Globulin Ratio 1.2 Fingerstick Blood Sugar Results: 137 Critical Care Progress Note - Nutrition Nutrition: Nutrition Category Date Time Status Heart Healthy Diet [DIET] Diets 10/09/17 Lunch Active Assessment/Plan - Assessment and Plan (Free Text) Assessment: Pneumothorax -Left sided pneumothorax s/p left anterior and posterior chest tube placement -Mild drainage of serosanguineous fluids(posterior>anterior) -No SOB now, on 2L NC oxygen, saturating well >98% - COPD -Chronic obstructive lung disease: continue with current management. -Continue to monitor A fib -Atrial fibrillation, rate stable -Hypertension: Controlled. Continue with losartan 50 mg po daily. -Start Lovenox 70 mg SC Q12 hr Diabetes mellitus II -Well controlled (HbA1c 7.7 on 05/2017) -Continue with current management GI: No acute issues -Continue with GI prophylaxis ID: -Dr. Luna on board -On meropenem 1 gm IVPB q12 and vancomycin 750 mg q12 -Blood cx on 10/07/17: coagulase negative staph -Sputum cx on 10/10/17: yeast species -Blood cx: no growth so far. DVT proph - pt is on therapeutic lovenox for atrial fibrillation GI proph -famotidine 20 mg po daily Code status - full cod
--- NOTE | 2017-10-15 16:23 | CP.PCM.PN ---
Subjective - Date & Time of Evaluation Date of Evaluation: 10/15/17 Time of Evaluation: 12:21 - Subjective Subjective: Patient seen and examined at bedside He states he had 1 BM last night. He denies SOB, chest pain, n/v. Pain at the chest tube insertion sites improving. Objective - Vital Signs/Intake and Output Vital Signs (last 24 hours): Temp Pulse Resp BP Pulse Ox 98.3 F 104 H 18 151/61 H 96 10/15/17 16:00 10/15/17 16:00 10/15/17 16:00 10/15/17 16:00 10/15/17 16:00 Intake and Output: 10/15/17 10/15/17 06:59 18:59 Intake Total 452 790 Output Total 976 Balance -524 790 - Medications Medications: Current Medications Albuterol/Ipratropium (Duoneb 3 Mg/0.5 Mg (3 Ml) Ud) 3 ml INH RQID [facility] Last Admin: 10/15/17 15:14 Dose: 3 ml Atorvastatin Calcium (Lipitor) 40 mg PO DAILY@2100 [facility] Last Admin: 10/14/17 20:01 Dose: 40 mg Dextrose (Dextrose 50% Inj) 0 ml IV STAT PRN; Protocol PRN Reason: Hypoglycemia Protocol Dextrose (Glutose 15) 0 gm PO ONCE PRN; Protocol PRN Reason: Hypoglycemia Protocol Enoxaparin Sodium (Lovenox) 70 mg SC Q12 ULISES PRN Reason: Protocol Last Admin: 10/15/17 08:00 Dose: 70 mg Famotidine (Pepcid) 20 mg PO DAILY [facility] Last Admin: 10/15/17 08:08 Dose: 20 mg Finasteride (Proscar) 5 mg PO DAILY [facility] Last Admin: 10/15/17 08:02 Dose: 5 mg Gabapentin (Neurontin) 300 mg PO HS [facility] Last Admin: 10/14/17 21:07 Dose: 300 mg Glucagon (Glucagen Diagnostic Kit) 0 mg IM STAT PRN; Protocol PRN Reason: Hypoglycemia Protocol Hydrochlorothiazide (Microzide) 12.5 mg PO DAILY [facility] Last Admin: 10/08/17 14:04 Dose: Not Given Meropenem 1 gm/ Sodium (Chloride) 100 mls @ 100 mls/hr IVPB Q12 ULISES PRN Reason: Protocol Last Admin: 10/15/17 08:01 Dose: 100 mls/hr Vancomycin HCl 750 mg/ Sodium (Chloride) 250 mls @ 166.667 mls/hr IVPB Q12 ULISES PRN Reason: Protocol Last Admin: 10/15/17 08:02 Dose: 166.667 mls/hr Insulin Detemir (Levemir) 10 units SC HS [facility] Last Admin: 10/14/17 22:10 Dose: 10 units Insulin Human Regular (Humulin R) 0 units SC ACHS ULISES PRN Reason: Protocol Last Admin: 10/15/17 11:33 Dose: Not Given Levalbuterol HCl (Xopenex) 0.63 mg INH RQ4 PRN PRN Reason: Shortness of Breath Last Admin: 10/08/17 13:00 Dose: 0.63 mg Losartan Potassium (Cozaar) 50 mg PO DAILY [facility] Last Admin: 10/15/17 07:59 Dose: 50 mg Morphine Sulfate (Morphine) 2 mg IVP Q4 PRN PRN Reason: Pain, moderate (4-7) Last Admin: 10/15/17 11:12 Dose: 2 mg Morphine Sulfate (Morphine) 4 mg IVP Q4 PRN PRN Reason: Pain, severe (8-10) Last Admin: 10/13/17 22:30 Dose: 4 mg Ondansetron HCl (Zofran Inj) 4 mg IVP Q6 PRN PRN Reason: Nausea/Vomiting Oxycodone HCl (Oxycodone Immediate Release Tab) 5 mg PO Q6 PRN PRN Reason: Pain, Mild (1-3) Last Admin: 10/15/17 07:58 Dose: 5 mg Repaglinide (Prandin) 1 mg PO TIDAC [facility] Last Admin: 10/15/17 11:36 Dose: 1 mg Senna/Docusate Sodium (Senokot S 50 Mg-8.6 Mg) 2 tab PO HS [facility] Last Admin: 10/14/17 21:07 Dose: 2 tab - Labs Labs: 10/15/17 05:52 10/15/17 05:52 PT 13.3 Seconds (9.8-13.1) H 10/07/17 16:35 INR 1.2 10/07/17 16:35 APTT 34.1 Seconds (25.6-37.1) 10/07/17 16:35 - Eye Exam Eye Exam: Normal appearance - ENT Exam ENT Exam: Mucous Membranes Moist - Respiratory Exam Respiratory Exam: Clear to Ausculation Bilateral, NORMAL BREATHING PATTERN - Cardiovascular Exam Cardiovascular Exam: REGULAR RHYTHM, +S1, +S2 - GI/Abdominal Exam GI & Abdominal Exam: Soft, Normal Bowel Sounds. absent: Tenderness - Extremities Exam Extremities Exam: Normal Inspection. absent: Pedal Edema, Tenderness - Back Exam Back Exam: absent: CVA tenderness (L), CVA tenderness (R) - Neurological Exam Neurological Exam: Alert, Awake, Oriented x3 - Psychiatric Exam Psychiatric exam: Normal Affect - Skin Skin Exam: Dry, Normal Color, Warm Assessment and Plan - Assessment and Plan (Free Text) Assessment: 76 year old male w/ hx of HTN, COPD, DM2, atrial fibrillation who was admitted for left pneumothorax which developed s/p lung biopsy, now POD #6 s/p left anterior and posterior chest tubes placement. Plan: Left lung Pneumothorax -repeat CXR no penumothorax/effusions appreciated -Thoracic Surgery Consult, Dr. Justice: daily CXR, repeat CT chest monday10/16/17, clamp tubes x 24 hrs, consider discontinue chest tubes Monday10/17/17 -s/p POD #6 left anterior and posterior chest tubes placement -s/p Left lung biopsy at [facility] on 10/04/[address] Hameed convey organized pneumonia -10/07/17: CT Chest: Left lung Pneumothorax, 40% lung collapsed -10/10/17: CT chest: no significant pneumothorax following placement of second chest tube, improved aeration and expansion -Pulmonology Consult appreciated: Dr. Hameed, will follow recommendations -Continue high flow O2 supplementation via nasal cannula, monitor respiratory status -Mycoplasma Igm and Legionella Ur Ag negative Blood cultures positive for gram+ cocci -10/07/2017 GPC+ in anaerobic sample, possible contaminant. 10/09 blood culture gram + bacilli -repeat blood cultures 10/10 no growth after 96 hours -ID consult appreciated; Meropenem 1 gm IV Q12 day #7 w/ plans to d/c Meropenem once chest tubes are removed. -Vancomycin 750 mg Q12 day #6 with trough goal <20. Vanc trough 10/13/17: 10.4. -Echo did not show evidence of vegetations Atrial Fibrillation -Chronic, asymptomatic -Cardiology consult appreciated: Dr. Last -Coumadin held per Dr. Last, latest INR 10/07/17 1.2 -was previously on digoxin, but this was d/c by Dr. Last in May due to detection of brief pauses EKG -no beta blockers as patient has limited respiratory reserve -Now on Lovenox 70 mg SC Q12 COPD -severe, chronic, Controlled -Pulmonology consult appreciated: Dr. Hameed -continue with Duonebs INH RQID ULISES, Xopenex INH RQ4 PRN -hold Spiriva 18 mcg INH QD, hold Advair Diskus 500/50 1 puff IH Q12: per pulmonology -hold Ventolin HFA 2 puff IH Q6 PRN -monitor respiratory status Elevated ProBNP and Troponin -Echo done 10/12/17: results pending -serial troponins trending down -last echo in May showed EF 40-40%. However, per Dr. Last, patient has preserved left ventricular systolic function and elevated troponins are likely 2 /2 tachycardia induced myocyte injury -EKG findings likely 2/2 pneumothorax shifting mediastinum Left Lung Nodule, s/p Lung Biopsy on 10/04/17 at [facility] -bx showed organized pneumonia per Dr. Hameed who [facility] -awaiting official path report Diabetes Mellitus type 2 -chronic, controlled -Repaglinide 2mg TID decreased to 1mg PO TIDAC due to hypoglycemia -continue with home medications: Levemir 10 SC QHS. Insulin regular coverage scale added -Hypogly[facility] in [facility]: 7.7 on 05/2017 -Diet: heart healthy, low carbohydrate Hypertension -chronic, controlled -continue home medication: Losartan 50 mg PO QD -HCTZ held -monitor BP HLD -chronic, controlled -continue home medication: atorvastatin 40mg DVT Prophylaxis -Now on Lovenox 70 mg SC Q12 -Discussed risks and benefits w/ vegetable specker Full Code -Next of kin: , [place] [phone]
[2017-10-15] MEDS: Insulin Detemir 100 Units/ml Inj SC SCH (21:02)
[2017-10-15] MEDS: Docusate-Senna 50 mg-8.6 mg Tab PO SCH (21:03)
[2017-10-16] MEDS ORDERED: Dextrose 50% SYRINGE Inj (50 ml) ONE (05:07)
[2017-10-16] MEDS ORDERED: Dextrose 50% SYRINGE Inj (50 ml) IVP ONE (05:10)
[2017-10-16 05:32] LABS: MEAN CELL VOLUME 92.3 fl (80.0-94.0); MEAN CORPUSCULAR HEMOGLOBIN 32.1 pg (27.0-31.0); MEAN CORPUSCULAR HGB CONC 34.7 g/dL (33.0-37.0); RBC 3.44 Mil/uL (4.40-5.90); RED CELL DISTRIBUTION WIDTH 13.3 % (11.5-14.5); WHITE BLOOD COUNT 7.7 K/uL (4.8-10.8)
[2017-10-16 05:45] LABS: BLOOD UREA NITROGEN 15 mg/dl (9-20); GFR AFRICAN-AMERICAN > 60; GFR NON-AFRICAN AMERICAN > 60
[2017-10-16] MEDS: Insulin Regular 100 units/ml SC SCH ×4 (06:56→21:34)
--- NOTE | 2017-10-16 07:29 | CP.CCUPN ---
CCU Subjective - Physician Review Subjective (Free Text): 10/16/17 The patient was Seen/interviewed and examined by me at the bedside during ICU round, Medical records reviewed and Management issues were discussed and formulated with the house staff. Events reviewed 76 Years old Male with PMHx of HTN, Hypercholesterolemia, Atrial Fibrillation, COPD, Emphysema, Pneumonia, Chronic Kidney Disease and multiple pulmonary nodules S/P HAYDE biopsy on 10/04 at [facility] Who presented to the Emergency department 10/07 complaining of shortness of breath and Hemopyysis post lung Biopsy He was found to have pneumothorax, now with persistent air-leak despite chest tube placement. 10/09 He underwent insertion of left anterior and left posterior chest tube with evacuation of small hemothorax Procedure done under General Anesthesia and was uneventful Patient was successfully extubated, admitted to ICU hemodynamically stable, Pt AAO x3, comfortable, NAD Denies any chest pain or SOB B/L chest tubes off suction with no air leak. CT output over last 24hrs: 100/20 CCU Objective - Vital Signs / Intake & Output Vital Signs (Last 4 hours): Vital Signs Temp Pulse Resp BP Pulse Ox 10/16/17 06:01 78 18 148/70 100 10/16/17 04:00 98 F 87 19 123/60 99 Intake and Output (Last 8hrs): Intake & Output 10/15/17 10/16/17 10/16/17 22:59 06:59 14:59 Intake Total 452 154 Output Total 380 500 Balance 72 -346 Intake: IV 2 4 Intake, Piggyback 350 Oral 50 150 Tube Feeding 50 Output: Chest Tube Drainage 80 50 Left Anterior Chest 20 10 Left Posterior Chest 60 40 Urine 300 450 Urine, Voided 300 450 Other: # Voids Urine, Voided 1 1 - Physical Exam Head: Positive for: Atraumatic, Normocephalic Pupils: Positive for: PERRL Extroacular Muscles: Positive for: EOMI Conjunctiva: Positive for: Normal. Negative for: Icteric Mouth: Positive for: Moist Mucous Membranes Nose (External): Positive for: Atraumatic. Negative for: Abrasion Neck: Positive for: Normal Range of Motion, Trachea Midline Respiratory/Chest: Positive for: Good Air Exchange, Decreased Breath Sounds, Other (left anterior and posterior chest tube in place, draining serosanguineous fluids.). Negative for: Respiratory Distress, Accessory Muscle Use, Rales Cardiovascular: Positive for: Irregular Rhythm, Peripheal Pulses Present. Negative for: Murmurs, Normal S1, S2 Abdomen: Positive for: Normal Bowel Sounds. Negative for: Tenderness, Distention Upper Extremity: Positive for: Normal Inspection. Negative for: Edema Lower Extremity: Positive for: Normal Inspection, NORMAL PULSES. Negative for: Edema, CALF TENDERNESS Neurological: Positive for: Speech Normal, Motor Func Grossly Intact, Normal Sensory Function Skin: Positive for: Warm, Normal Color. Negative for: Rashes Psychiatric: Positive for: Alert, Oriented x 3 - Medications Active Medications: Active Medications Generic Name Dose Route Start Last Admin Trade Name Freq PRN Reason Stop Dose Admin Albuterol/Ipratropium 3 ml 10/08/17 12:00 10/15/17 19:17 Duoneb 3 Mg/0.5 Mg (3 Ml) Ud INH 3 ml RQID ULISES Administration Atorvastatin Calcium 40 mg 10/07/17 21:00 10/15/17 20:25 Lipitor PO 40 mg DAILY@2100 ULISES Administration Dextrose 0 ml 10/07/17 19:49 Dextrose 50% Inj IV STAT PRN Hypoglycemia Protocol Protocol Dextrose 0 gm 10/07/17 19:49 Glutose 15 PO ONCE PRN Hypoglycemia Protocol Protocol Enoxaparin Sodium 70 mg 10/12/17 21:00 10/15/17 20:25 Lovenox SC 70 mg Q12 ULISES Administration Protocol Famotidine 20 mg 10/08/17 13:15 10/15/17 08:08 Pepcid PO 20 mg DAILY [facility]ISES Administration Finasteride 5 mg 10/08/17 09:00 10/15/17 08:02 Proscar PO 5 mg DAILY ULISES Administration Gabapentin 300 mg 10/07/17 22:00 10/15/17 21:02 Neurontin PO 300 mg HS ULISES Administration Glucagon 0 mg 10/07/17 19:49 Glucagen Diagnostic Kit IM STAT PRN Hypoglycemia Protocol Protocol Hydrochlorothiazide 12.5 mg 10/08/17 09:00 10/08/17 14:04 Microzide PO Not Given DAILY ULISES Meropenem 1 gm/ Sodium 100 mls @ 100 mls/hr 10/09/17 21:00 10/15/17 20:26 Chloride IVPB 100 mls/hr Q12 ULISES Administration Protocol Vancomycin HCl 750 mg/ Sodium 250 mls @ 166.667 mls/hr 10/10/17 21:00 20:29 Chloride IVPB 166.667 mls/hr Q12 ULISES Administration Protocol Insulin Detemir 10 units 10/07/17 22:00 10/15/17 21:02 Levemir SC 10 units HS ULISES Administration Insulin Human Regular 0 units 10/11/17 13:17 10/16/17 06:56 Humulin R SC Not Given ACHS [facility] Protocol Levalbuterol HCl 0.63 mg 10/08/17 09:07 10/08/17 13:00 Xopenex INH 0.63 mg RQ4 PRN Administration Shortness of Breath Losartan Potassium 50 mg 10/08/17 09:00 10/15/17 07:59 Cozaar PO 50 mg DAILY ULISES Administration Morphine Sulfate 2 mg 10/10/17 09:12 10/16/17 05:59 Morphine IVP 2 mg Q4 PRN Administration Pain, moderate (4-7) Morphine Sulfate 4 mg 10/10/17 16:50 10/13/17 22:30 Morphine IVP 4 mg Q4 PRN Administration Pain, severe (8-10) Ondansetron HCl 4 mg 10/09/17 15:01 Zofran Inj IVP Q6 PRN Nausea/Vomiting Oxycodone HCl 5 mg 10/09/17 16:27 10/15/17 07:58 Oxycodone Immediate Release Tab PO 5 mg Q6 PRN Administration Pain, Mild (1-3) Repaglinide 1 mg 10/12/17 16:30 10/16/17 06:37 Prandin PO 1 mg TIDAC ULISES Administration Senna/Docusate Sodium 2 tab 10/10/17 22:00 10/15/17 21:03 Senokot S 50 Mg-8.6 Mg PO 2 tab HS ULISES Administration - Patient Studies Lab Studies: Microbiology Studies 10/13/17 19:56 Blood Culture - Preliminary Blood-Venous NO GROWTH AFTER 48 HOURS 10/13/17 19:46 Blood Culture - Preliminary Blood-Venous NO GROWTH AFTER 48 HOURS 10/09/17 18:00 Blood Culture - Final Blood-Venous Bifidobacterium Species Gram Stain - Final 10/10/17 16:30 Gram Stain - Final Pleural Fluid Body Fluid Culture - Final Staphylococcus Sp Coag Neg 10/10/17 10:40 Blood Culture - Final Blood-Venous NO GROWTH AFTER 5 DAYS Gram Stain - Final TEST NOT PERFORMED Lab Studies 10/16/17 10/16/17 Range/Units 04:30 04:30 WBC 7.7 (4.8-10.8) K/uL RBC 3.44 L (4.40-5.90) Mil/uL Hgb 11.0 L (12.0-18.0) g/dL Hct 31.8 L (35.0-51.0) % MCV 92.3 (80.0-94.0) fl MCH 32.1 H (27.0-31.0) pg MCHC 34.7 (33.0-37.0) g/dL RDW 13.3 (11.5-14.5) % Plt Count 219 (130-400) K/uL Sodium 136 (132-148) mmol/l Potassium 4.0 (3.6-5.0) MMOL/L Chloride 100 (98-107) mmol/L Carbon Dioxide 31 H (22-30) mmol/L Anion Gap 9 L (10-20) BUN 15 (9-20) mg/dl Creatinine 0.6 L (0.8-1.5) mg/dl Est GFR ( Amer) > 60 Est GFR (Non-Af Amer) > 60 Random Glucose 69 L (75-110) mg/dL Calcium 9.0 (8.4-10.2) mg/dL Laboratory Results - last 24 hr 10/16/17 10/16/17 04:30 04:30 WBC 7.7 RBC 3.44 L Hgb 11.0 L Hct 31.8 L MCV 92.3 MCH 32.1 H MCHC 34.7 RDW 13.3 Plt Count 219 Sodium 136 Potassium 4.0 Chloride 100 Carbon Dioxide 31 H Anion Gap 9 L BUN 15 Creatinine 0.6 L Est GFR ( Amer) > 60 Est GFR (Non-Af Amer) > 60 Random Glucose 69 L Calcium 9.0 Fingerstick Blood Sugar Results: 57 Critical Care Progress Note - Nutrition Nutrition: Nutrition Category Date Time Status Heart Healthy Diet [DIET] Diets 10/09/17 Lunch Active Assessment/Plan (1) Pneumothorax Current Visit: Yes Status: Acute Priority: High Comment: B/L chest tube to water seal, no air leak, adequate saturation Follow up Chest CT scan repeat today Possible Remove CT tomorrow (2) Elevated troponin I level Current Visit: Yes Status: Acute Priority: Medium (3) Pneumonia Current Visit: Yes Status: Acute Priority: Medium (4) COPD (chronic obstructive pulmonary disease) Current Visit: Yes Status: Chronic Priority: High Comment: Stable, no wheezing Albuterol/Ipratropium (Duoneb) INH RQID ULISES (5) Pulmonary emphysema Current Visit: Yes Status: Chronic Priority: High (6) Pulmonary nodules/lesions, multiple Current Visit: Yes Status: Chronic Priority: High (7) Type 2 diabetes mellitus Current Visit: Yes Status: Chronic Priority: Medium (8) Atrial fibrillation Current Visit: Yes Status: Chronic Priority: High
--- NOTE | 2017-10-16 07:30 | CP.PCM.PN ---
Subjective - Date & Time of Evaluation Date of Evaluation: 10/16/17 Time of Evaluation: 07:15 - Subjective Subjective: Thoracic Surgery Dr. Justice Pt S&E @bedside. pt sitting up in bed. some discomfort at chest tube site , otherwise no complaints. denies F/C, CP, SOB, N/V. tolerating diet. Objective - Vital Signs/Intake and Output Vital Signs (last 24 hours): Temp Pulse Resp BP Pulse Ox 98 F 78 18 148/70 100 10/16/17 04:00 10/16/17 06:01 10/16/17 06:01 10/16/17 06:01 10/16/17 06:01 Intake and Output: 10/16/17 10/16/17 06:59 18:59 Intake Total 606 Output Total 800 Balance -194 Selected Entries 10/15/17 10/16/17 18:00 05:28 Output, Chest 20 10 Tube Drainage Amount [Left Anterior Chest] Output, Chest 60 40 Tube Drainage Amount [Left Posterior Chest ] - Medications Medications: Current Medications Albuterol/Ipratropium (Duoneb 3 Mg/0.5 Mg (3 Ml) Ud) 3 ml INH RQID [facility] Last Admin: 10/15/17 19:17 Dose: 3 ml Atorvastatin Calcium (Lipitor) 40 mg PO DAILY@2100 [facility] Last Admin: 10/15/17 20:25 Dose: 40 mg Dextrose (Dextrose 50% Inj) 0 ml IV STAT PRN; Protocol PRN Reason: Hypoglycemia Protocol Dextrose (Glutose 15) 0 gm PO ONCE PRN; Protocol PRN Reason: Hypoglycemia Protocol Enoxaparin Sodium (Lovenox) 70 mg SC Q12 [facility] PRN Reason: Protocol Last Admin: 10/15/17 20:25 Dose: 70 mg Famotidine (Pepcid) 20 mg PO DAILY [facility] Last Admin: 10/15/17 08:08 Dose: 20 mg Finasteride (Proscar) 5 mg PO DAILY [facility] Last Admin: 10/15/17 08:02 Dose: 5 mg Gabapentin (Neurontin) 300 mg PO HS [facility] Last Admin: 10/15/17 21:02 Dose: 300 mg Glucagon (Glucagen Diagnostic Kit) 0 mg IM STAT PRN; Protocol PRN Reason: Hypoglycemia Protocol Hydrochlorothiazide (Microzide) 12.5 mg PO DAILY [facility] Last Admin: 10/08/17 14:04 Dose: Not Given Meropenem 1 gm/ Sodium (Chloride) 100 mls @ 100 mls/hr IVPB Q12 [facility] PRN Reason: Protocol Last Admin: 10/15/17 20:26 Dose: 100 mls/hr Vancomycin HCl 750 mg/ Sodium (Chloride) 250 mls @ 166.667 mls/hr IVPB Q12 [facility] PRN Reason: Protocol Last Admin: 10/15/17 20:29 Dose: 166.667 mls/hr Insulin Detemir (Levemir) 10 units SC [facility] Last Admin: 10/15/17 21:02 Dose: 10 units Insulin Human Regular (Humulin R) 0 units SC [facility] PRN Reason: Protocol Last Admin: 10/16/17 06:56 Dose: Not Given Levalbuterol HCl (Xopenex) 0.63 mg INH RQ4 PRN PRN Reason: Shortness of Breath Last Admin: 10/08/17 13:00 Dose: 0.63 mg Losartan Potassium (Cozaar) 50 mg PO DAILY [facility] Last Admin: 10/15/17 07:59 Dose: 50 mg Morphine Sulfate (Morphine) 2 mg IVP Q4 PRN PRN Reason: Pain, moderate (4-7) Last Admin: 10/16/17 05:59 Dose: 2 mg Morphine Sulfate (Morphine) 4 mg IVP Q4 PRN PRN Reason: Pain, severe (8-10) Last Admin: 10/13/17 22:30 Dose: 4 mg Ondansetron HCl (Zofran Inj) 4 mg IVP Q6 PRN PRN Reason: Nausea/Vomiting Oxycodone HCl (Oxycodone Immediate Release Tab) 5 mg PO Q6 PRN PRN Reason: Pain, Mild (1-3) Last Admin: 10/15/17 07:58 Dose: 5 mg Repaglinide (Prandin) 1 mg PO TIDAC [facility] Last Admin: 10/16/17 06:37 Dose: 1 mg Senna/Docusate Sodium (Senokot S 50 Mg-8.6 Mg) 2 tab PO HS [facility] Last Admin: 10/15/17 21:03 Dose: 2 tab - Labs Labs: 10/16/17 04:30 10/16/17 04:30 PT 13.3 Seconds (9.8-13.1) H 10/07/17 16:35 INR 1.2 10/07/17 16:35 APTT 34.1 Seconds (25.6-37.1) 10/07/17 16:35 - Constitutional Appears: Non-toxic, No Acute Distress - Head Exam Head Exam: NORMAL INSPECTION - Eye Exam Eye Exam: Normal appearance - ENT Exam ENT Exam: Mucous Membranes Moist - Respiratory Exam Respiratory Exam: NORMAL BREATHING PATTERN. absent: Accessory Muscle Use, Respiratory Distress Additional comments: (L) anterior and posterior chest tubes in place. on wall suction. no leak. draining minimal serous fluid - Cardiovascular Exam Cardiovascular Exam: REGULAR RHYTHM. absent: Bradycardia, Tachycardia - GI/Abdominal Exam GI & Abdominal Exam: Soft. absent: Distended, Tenderness - Extremities Exam Extremities Exam: Normal Inspection - Neurological Exam Neurological Exam: Alert, Awake, Oriented x3 - Psychiatric Exam Psychiatric exam: Normal Affect, Normal Mood - Skin Skin Exam: Dry, Intact, Normal Color, Warm Assessment and Plan - Assessment and Plan (Free Text) Assessment: 77 y/o M w/ (L) pneumothorax s/p chest tube insertion x 2 - Cont CT to wall suction - f/u CT chest today - Possible d/c Monday pending CT findings - Cont pain management - encourage OOB to chair/Amb/IS use Pt discussed w/ Dr. Vinh Peterson DO PGY3
[2017-10-16] MEDS: Albuterol-Ipratrop 3 mg / 0.5 (3 ml) UD INH SCH ×4 (07:47→19:08)
--- NOTE | 2017-10-16 08:26 | RAD ---
Date of service: 10/16/2017 HISTORY: left chest tube COMPARISON: 10/15/2017. FINDINGS: LUNGS: The lungs are well inflated. There is stable atelectasis/scarring in the right upper lobe and left mid lung. 3 stable scarring and probable postsurgical changes in the left lung base. PLEURA: No significant pleural effusion identified, no pneumothorax apparent. Stable position of 2 left-sided chest tubes. CARDIOVASCULAR: Normal. OSSEOUS STRUCTURES: No significant abnormalities. VISUALIZED UPPER ABDOMEN: Normal. OTHER FINDINGS: None. IMPRESSION: No significant interval change. No pneumothorax. Stable position of left-sided chest tubes.
[2017-10-16] MEDS: Enoxaparin 80 mg Syringe SC SCH ×2 (08:47→20:18)
[2017-10-16] MEDS: Meropenem 1 GM in Sodium Chloride 0.9% 100 ML IVPB SCH ×2 (08:49→20:19)
--- NOTE | 2017-10-16 10:27 | CP.PCM.PN ---
Subjective - Date & Time of Evaluation Date of Evaluation: 10/16/17 Time of Evaluation: 10:27 - Subjective Subjective: ID note- pt. seen and examined today in ICU. pt. in good spirits and states he feels fine. he still has the 2 timothy tubes. Pt. will have repeat chest Ct today. afebrile. Objective - Vital Signs/Intake and Output Vital Signs (last 24 hours): Temp Pulse Resp BP Pulse Ox 98.2 F 87 20 133/58 L 99 10/16/17 07:57 10/16/17 08:44 10/16/17 07:57 10/16/17 08:44 10/16/17 07:57 Intake and Output: 10/16/17 10/16/17 06:59 18:59 Intake Total 606 Output Total 800 Balance -194 - Medications Medications: Current Medications Albuterol/Ipratropium (Duoneb 3 Mg/0.5 Mg (3 Ml) Ud) 3 ml INH RQID [facility] Last Admin: 10/16/17 07:47 Dose: 3 ml Atorvastatin Calcium (Lipitor) 40 mg PO DAILY@2100 [facility] Last Admin: 10/15/17 20:25 Dose: 40 mg Dextrose (Dextrose 50% Inj) 0 ml IV STAT PRN; Protocol PRN Reason: Hypoglycemia Protocol Dextrose (Glutose 15) 0 gm PO ONCE PRN; Protocol PRN Reason: Hypoglycemia Protocol Enoxaparin Sodium (Lovenox) 70 mg SC Q12 [facility] PRN Reason: Protocol Last Admin: 10/16/17 08:47 Dose: 70 mg Famotidine (Pepcid) 20 mg PO DAILY [facility] Last Admin: 10/16/17 08:46 Dose: 20 mg Finasteride (Proscar) 5 mg PO DAILY [facility] Last Admin: 10/16/17 08:45 Dose: 5 mg Gabapentin (Neurontin) 300 mg PO HS [facility] Last Admin: 10/15/17 21:02 Dose: 300 mg Glucagon (Glucagen Diagnostic Kit) 0 mg IM STAT PRN; Protocol PRN Reason: Hypoglycemia Protocol Hydrochlorothiazide (Microzide) 12.5 mg PO DAILY [facility] Last Admin: 10/08/17 14:04 Dose: Not Given Meropenem 1 gm/ Sodium (Chloride) 100 mls @ 100 mls/hr IVPB Q12 [facility] PRN Reason: Protocol Last Admin: 10/16/17 08:49 Dose: 100 mls/hr Vancomycin HCl 750 mg/ Sodium (Chloride) 250 mls @ 166.667 mls/hr IVPB Q12 [facility] PRN Reason: Protocol Last Admin: 10/15/17 20:29 Dose: 166.667 mls/hr Insulin Detemir (Levemir) 10 units SC HS [facility] Last Admin: 10/15/17 21:02 Dose: 10 units Insulin Human Regular (Humulin R) 0 units SC [facility] PRN Reason: Protocol Last Admin: 10/16/17 06:56 Dose: Not Given Levalbuterol HCl (Xopenex) 0.63 mg INH RQ4 PRN PRN Reason: Shortness of Breath Last Admin: 10/08/17 13:00 Dose: 0.63 mg Losartan Potassium (Cozaar) 50 mg PO DAILY [facility] Last Admin: 10/16/17 08:44 Dose: 50 mg Morphine Sulfate (Morphine) 2 mg IVP Q4 PRN PRN Reason: Pain, moderate (4-7) Last Admin: 10/16/17 05:59 Dose: 2 mg Morphine Sulfate (Morphine) 4 mg IVP Q4 PRN PRN Reason: Pain, severe (8-10) Last Admin: 10/13/17 22:30 Dose: 4 mg Ondansetron HCl (Zofran Inj) 4 mg IVP Q6 PRN PRN Reason: Nausea/Vomiting Oxycodone HCl (Oxycodone Immediate Release Tab) 5 mg PO Q6 PRN PRN Reason: Pain, Mild (1-3) Last Admin: 10/15/17 07:58 Dose: 5 mg Repaglinide (Prandin) 1 mg PO TIDAC [facility] Last Admin: 10/16/17 06:37 Dose: 1 mg Senna/Docusate Sodium (Senokot S 50 Mg-8.6 Mg) 2 tab PO HS [facility] Last Admin: 10/15/17 21:03 Dose: 2 tab - Labs Labs: - Additional Findings Additional findings: - Constitutional Appears: NAD - Head Exam Head Exam: ATRAUMATIC - Eye Exam Eye Exam: EOMI, PERRL - ENT Exam ENT Exam: Normal Oropharynx - Neck Exam Neck exam: Positive for: Full Rom - Respiratory Exam Additional comments: decreased breath sounds in left base no wheezing has 2 chest tubes in left chest , one anterior and one posterior draining serosanguinous fluid - Cardiovascular Exam Cardiovascular Exam: Tachycardia, +S1, +S2 - GI/Abdominal Exam GI & Abdominal Exam: Normal Bowel Sounds, Soft Additional comments: NT, ND - Extremities Exam Extremities exam: Positive for: normal inspection Additional comments: no edema B/L LE - Neurological Exam Neurological exam: Alert, Oriented x 3 Laboratory Results - last 72 hr 10/13/17 10/13/17 10/14/17 15:55 21:23 05:25 WBC 9.0 RBC 3.84 L Hgb 12.2 Hct 35.5 MCV 92.3 MCH 31.7 H MCHC 34.3 RDW 13.5 Plt Count 229 Sodium Potassium Chloride Carbon Dioxide Anion Gap BUN Creatinine Est GFR ( Amer) Est GFR (Non-Af Amer) POC Glucose (mg/dL) 207 H 82 Random Glucose Calcium Total Bilirubin AST ALT Alkaline Phosphatase Total Protein Albumin Globulin Albumin/Globulin Ratio 10/14/17 10/14/17 10/14/17 05:25 06:05 12:21 WBC RBC Hgb Hct MCV MCH MCHC RDW Plt Count Sodium 138 Potassium 4.2 Chloride 102 Carbon Dioxide 34 H Anion Gap 6 L BUN 24 H Creatinine 0.7 L Est GFR ( Amer) > 60 Est GFR (Non-Af Amer) > 60 POC Glucose (mg/dL) 80 161 H Random Glucose 87 Calcium 8.9 Total Bilirubin 1.0 AST 36 ALT 33 Alkaline Phosphatase 51 Total Protein 5.6 L Albumin 3.0 L Globulin 2.6 Albumin/Globulin Ratio 1.2 10/14/17 10/14/17 10/15/17 16:21 21:41 05:52 WBC 8.2 RBC 3.85 L Hgb 12.4 Hct 35.8 MCV 92.9 MCH 32.3 H MCHC 34.8 RDW 13.5 Plt Count 242 Sodium Potassium Chloride Carbon Dioxide Anion Gap BUN Creatinine Est GFR ( Amer) Est GFR (Non-Af Amer) POC Glucose (mg/dL) 173 H 115 H Random Glucose Calcium Total Bilirubin AST ALT Alkaline Phosphatase Total Protein Albumin Globulin Albumin/Globulin Ratio 10/15/17 10/16/17 10/16/17 05:52 04:30 04:30 WBC 7.7 RBC 3.44 L Hgb 11.0 L Hct 31.8 L MCV 92.3 MCH 32.1 H MCHC 34.7 RDW 13.3 Plt Count 219 Sodium 137 136 Potassium 4.2 4.0 Chloride 101 100 Carbon Dioxide 30 31 H Anion Gap 10 9 L BUN 18 15 Creatinine 0.6 L 0.6 L Est GFR ( Amer) > 60 > 60 Est GFR (Non-Af Amer) > 60 > 60 POC Glucose (mg/dL) Random Glucose 93 69 L Calcium 8.8 9.0 Total Bilirubin 0.9 AST 55 ALT 52 Alkaline Phosphatase 56 Total Protein 5.7 L Albumin 3.1 L Globulin 2.6 Albumin/Globulin Ratio 1.2 Microbiology 10/13/17 19:56 Blood-Venous Blood Culture - Preliminary NO GROWTH AFTER 48 HOURS 10/13/17 19:46 Blood-Venous Blood Culture - Preliminary NO GROWTH AFTER 48 HOURS 10/09/17 18:00 Blood-Venous Blood Culture - Final Bifidobacterium Species 10/09/17 18:00 Blood-Venous Gram Stain - Final 10/10/17 16:30 Pleural Fluid Gram Stain - Final 10/10/17 16:30 Pleural Fluid Body Fluid Culture - Final Staphylococcus Sp Coag Neg 10/10/17 10:40 Blood-Venous Blood Culture - Final NO GROWTH AFTER 5 DAYS 10/10/17 10:40 Blood-Venous Gram Stain - Final TEST NOT PERFORMED 10/10/17 19:26 Urine Urine Culture - Final No Growth (<1,000 CFU/ML) 10/07/17 16:35 Blood-Venous Blood Culture - Final NO GROWTH AFTER 5 DAYS 10/07/17 16:35 Blood-Venous Gram Stain - Final TEST NOT PERFORMED 10/09/17 15:00 Other: Please Indicate Gram Stain - Final 10/09/17 15:00 Other: Please Indicate Wound Culture - Final No growth. 10/09/17 15:00 Other: Please Indicate Gram Stain - Final 10/09/17 15:00 Other: Please Indicate Wound Culture - Final No growth. 10/07/17 16:35 Blood-Venous S.aureus & Coag-Neg Staph PNA FISH - Final 10/07/17 16:35 Blood-Venous Blood Culture - Final Coagulase Neg Staphylococcus 10/07/17 16:35 Blood-Venous Gram Stain - Final 10/10/17 11:17 Sputum Gram Stain - Final 10/10/17 11:17 Sputum Sputum Culture - Final Yeast Species Accession No. : [id number] Patient Name / ID : FATUMA Jenkins / [id number] Exam Date : 10/16/2017 04:36:50 ( Approved ) Study Comment : Sex / Age : M / 76Y Creator : Genesis Galindo MD Dictator : Genesis Galindo MD Psychiatric Registered Nurse : Government Affairs Specialist : Genesis Galindo MD Approver2 : Report Date : 10/16/2017 08:19:35 My Comment : Date of service: 10/16/2017 HISTORY: left chest tube COMPARISON: 10/15/2017. FINDINGS: LUNGS: The lungs are well inflated. There is stable atelectasis/scarring in the right upper lobe and left mid lung. 3 stable scarring and probable postsurgical changes in the left lung base. PLEURA: No significant pleural effusion identified, no pneumothorax apparent. Stable position of 2 left-sided chest tubes. CARDIOVASCULAR: Normal. OSSEOUS STRUCTURES: No significant abnormalities. VISUALIZED UPPER ABDOMEN: Normal. OTHER FINDINGS: None. IMPRESSION: No significant interval change. No pneumothorax. Stable position of left-sided chest tubes. Accession No. : [id number] Patient Name / ID : FATUMA Orosco [id number] Exam Date : 10/16/2017 12:32:59 ( Approved ) Study Comment : Sex / Age : M / 6Y Creator : Sarath Roper MD Dictator : Sarath Roper MD Psychiatric Registered Nurse : Government Affairs Specialist : Sarath Roper MD Approver2 : Report Date : 10/16/2017 13:43:53 My Comment : Date of service: 10/16/2017 PROCEDURE: CT Chest with contrast HISTORY: evaluation of chest cavity s/p CT x 2 COMPARISON: 10/07/2017, 10/09/2017 and 10/10/[address] scans of the thorax TECHNIQUE: Contiguous axial images were obtained through the chest with intravenous contrast enhancement. Sagittal and coronal reconstructions were performed. IV contrast: 95 cc Omnipaque 300 Radiation dose (DLP): 533.77 mGy-cm. This CT exam was performed using one or more of the following dose reduction techniques: Automated exposure control, adjustment of the mA and/or kV according to patient size, and/or use of iterative reconstruction technique. FINDINGS: LUNGS: Right lung: Areas of scarring without focal mass. Scarring, spiculated mass left apex. Scarring/infiltrate remains left lower lobe. Underlying bullous change. MEDIASTINUM: Unremarkable thoracic aorta. No aneurysm or dissection. Normal sized heart. Main pulmonary artery unremarkable. No vascular congestion. No lymphadenopathy. PLEURA: 2 chest tubes remain in the left pleural space. Trace pneumothorax remains. Increase in bilateral pleural effusions which remain small and uncomplicated. BONES: No fracture. No destructive lesion. UPPER ABDOMEN: Grossly unremarkable. OTHER FINDINGS: Substantial decreased and subcutaneous emphysema identified previously. IMPRESSION: 1. Trace residual left pneumothorax. 2. Stable position of 2 chest tubes in the left pleural space. 3. Increase in pleural effusions which remainsAll areas of scarring 4. Left upper lobe with adjacent faint infiltrate. Overall the pulmonary parenchymal findings in the left upper lobe appear to have improved. Similar less pronounced changes remain in the lingula. 5. Near complete resolution of subcutaneous emphysema. Assessment and Plan (1) Pneumothorax Status: Acute (2) COPD exacerbation Status: Acute (3) Pulmonary nodules/lesions, multiple Status: Chronic (4) Leukocytosis Status: Resolved (5) Pulmonary emphysema Status: Chronic - Assessment and Plan (Free Text) Assessment: A/P- 76 year old male with multiple medical conditions including COPD, A.Fib, DM II s /p lung biopsy later developed pneumothorax s/p chest tuube 4 days ago , not improved and had developed left sided chest subcutaneous emphysema s/p 2 chest tubes 3 days ago afebrile leukocytosis resolved. blood cx from 10/07 - one out of 2 bottles reported coag neg staph ( most likely contaminant) repeat blood cx- neg x 1( 10/10/2017) blood cx from 10/09/2017- Bifidobacterium species ( anerobic bottle only)!!! repeat blood cx 10/13/2017- neg x 2 OR cx- no growth pleural fluid cx- coag neg staph mycoplasma IGm- neg Urine legionellla Ag- Neg pleural fluid cx- neg sputum cx- yeast TTE report- no mention of vegetations as per report. repeat chest CT report noted. Plan- the 1 out of 2 blood cx reported coag neg staph after 3 days and only on anaerobic bottle is most likely a contaminant. however since pt. has had multiple procedures continue with IV vanco , day #6 keep trough <20. the blood cx from 10/09/2017 Identified yesterday as Bifidobacterium. Bifidobacterium species could be considered as nonpathogenic bacteria, as these anaerobic, gram-positive rods are part of the physiological oral, vaginal , and intestinal janine. Bacteremia due to Bifidobacterium species has been seen at times with use of probiotics. regardless bifidobacterium species are sensitive to vancomycin . repeat blood cx - neg x 2 advise to get another TTE since the initial one was reportd as poor visulaization and need to have IE ruled out. advise to continue with broad spectrum meropenem abx for nosocomial coverage pending further results. day #7 All labs and imaging reviewed. ICU time 40 minutes.
--- NOTE | 2017-10-16 11:44 | CP.PCM.PN ---
Subjective - Date & Time of Evaluation Date of Evaluation: 10/16/17 Time of Evaluation: 07:15 - Subjective Subjective: Patient seen and examined at bedside during morning rounds in ICU. Patient is clinically stable,lying in bed. Denies any SOB. Still complains of residual pain at chest tube insertion site. Vital signs stable. P 84, BP 129/64, RR 20 Spo2 99. Patient currently on 3L Nasal cannula. Trachea midline, Oral-pharyngeal mucosa moist W/o exudates. Breath sounds diminished bilaterally with few scattered sonorous rhonchi. No audible wheezes or bronchial breath sounds. Few dry rales in LL's posteriorly. Chest x-ray: Shows [address] with well expanded left lung. Chest tubes: Serosanguinous drainage continues, no air leaks, good fluctuation in tidal breathing. Repeat CT chest and tube clamping today Agree with plan to remove chest tubes on Monday. Medical and aerosol regimen should remain unchanged for the present time. Objective - Vital Signs/Intake and Output Vital Signs (last 24 hours): Temp Pulse Resp BP Pulse Ox 98.2 F 85 17 143/79 100 10/16/17 07:57 10/16/17 10:00 10/16/17 10:00 10/16/17 10:00 10/16/17 10:00 Intake and Output: 10/16/17 10/16/17 06:59 18:59 Intake Total 606 590 Output Total 800 200 Balance -194 390 - Medications Medications: Current Medications Albuterol/Ipratropium (Duoneb 3 Mg/0.5 Mg (3 Ml) Ud) 3 ml INH RQID [facility] Last Admin: 10/16/17 11:22 Dose: 3 ml Atorvastatin Calcium (Lipitor) 40 mg PO DAILY@2100 [facility] Last Admin: 10/15/17 20:25 Dose: 40 mg Dextrose (Dextrose 50% Inj) 0 ml IV STAT PRN; Protocol PRN Reason: Hypoglycemia Protocol Dextrose (Glutose 15) 0 gm PO ONCE PRN; Protocol PRN Reason: Hypoglycemia Protocol Enoxaparin Sodium (Lovenox) 70 mg SC Q12 [facility] PRN Reason: Protocol Last Admin: 10/16/17 08:47 Dose: 70 mg Famotidine (Pepcid) 20 mg PO DAILY [facility] Last Admin: 10/16/17 08:46 Dose: 20 mg Finasteride (Proscar) 5 mg PO DAILY [facility] Last Admin: 10/16/17 08:45 Dose: 5 mg Gabapentin (Neurontin) 300 mg PO HS [facility] Last Admin: 10/15/17 21:02 Dose: 300 mg Glucagon (Glucagen Diagnostic Kit) 0 mg IM STAT PRN; Protocol PRN Reason: Hypoglycemia Protocol Hydrochlorothiazide (Microzide) 12.5 mg PO DAILY [facility] Last Admin: 10/08/17 14:04 Dose: Not Given Meropenem 1 gm/ Sodium (Chloride) 100 mls @ 100 mls/hr IVPB Q12 [facility] PRN Reason: Protocol Last Admin: 10/16/17 08:49 Dose: 100 mls/hr Vancomycin HCl 750 mg/ Sodium (Chloride) 250 mls @ 166.667 mls/hr IVPB Q12 [facility] PRN Reason: Protocol Last Admin: 10/16/17 10:30 Dose: 166.667 mls/hr Insulin Detemir (Levemir) 10 units SC [facility] Last Admin: 10/15/17 21:02 Dose: 10 units Insulin Human Regular (Humulin R) 0 units SC [facility] PRN Reason: Protocol Last Admin: 10/16/17 06:56 Dose: Not Given Levalbuterol HCl (Xopenex) 0.63 mg INH RQ4 PRN PRN Reason: Shortness of Breath Last Admin: 10/08/17 13:00 Dose: 0.63 mg Losartan Potassium (Cozaar) 50 mg PO DAILY [facility] Last Admin: 10/16/17 08:44 Dose: 50 mg Morphine Sulfate (Morphine) 2 mg IVP Q4 PRN PRN Reason: Pain, moderate (4-7) Last Admin: 10/16/17 05:59 Dose: 2 mg Morphine Sulfate (Morphine) 4 mg IVP Q4 PRN PRN Reason: Pain, severe (8-10) Last Admin: 10/13/17 22:30 Dose: 4 mg Ondansetron HCl (Zofran Inj) 4 mg IVP Q6 PRN PRN Reason: Nausea/Vomiting Oxycodone HCl (Oxycodone Immediate Release Tab) 5 mg PO Q6 PRN PRN Reason: Pain, Mild (1-3) Last Admin: 10/15/17 07:58 Dose: 5 mg Repaglinide (Prandin) 1 mg PO TIDAC [facility] Last Admin: 10/16/17 11:28 Dose: 1 mg Senna/Docusate Sodium (Senokot S 50 Mg-8.6 Mg) 2 tab PO HS [facility] Last Admin: 10/15/17 21:03 Dose: 2 tab - Labs Labs: 10/16/17 04:30 10/16/17 04:30 PT 13.3 Seconds (9.8-13.1) H 10/07/17 16:35 INR 1.2 10/07/17 16:35 APTT 34.1 Seconds (25.6-37.1) 10/07/17 16:35 Assessment and Plan (1) Pneumothorax Status: Acute (2) COPD (chronic obstructive pulmonary disease) Status: Chronic
[2017-10-16] MEDS ORDERED: Iohexol 300 100 ML IJ ONE (12:38)
[2017-10-16] MEDS ORDERED: Sodium Chloride 0.9% 50 ML IV ONE (12:38)
--- NOTE | 2017-10-16 13:50 | CT ---
Date of service: 10/16/2017 PROCEDURE: CT Chest with contrast HISTORY: evaluation of chest cavity s/p CT x 2 COMPARISON: 10/07/2017, 10/09/2017 and 10/10/[address] scans of the thorax TECHNIQUE: Contiguous axial images were obtained through the chest with intravenous contrast enhancement. Sagittal and coronal reconstructions were performed. IV contrast: 95 cc Omnipaque 300 Radiation dose (DLP): 533.77 mGy-cm. This CT exam was performed using one or more of the following dose reduction techniques: Automated exposure control, adjustment of the mA and/or kV according to patient size, and/or use of iterative reconstruction technique. FINDINGS: LUNGS: Right lung: Areas of scarring without focal mass. Scarring, spiculated mass left apex. Scarring/infiltrate remains left lower lobe. Underlying bullous change. MEDIASTINUM: Unremarkable thoracic aorta. No aneurysm or dissection. Normal sized heart. Main pulmonary artery unremarkable. No vascular congestion. No lymphadenopathy. PLEURA: 2 chest tubes remain in the left pleural space. Trace pneumothorax remains. Increase in bilateral pleural effusions which remain small and uncomplicated. BONES: No fracture. No destructive lesion. UPPER ABDOMEN: Grossly unremarkable. OTHER FINDINGS: Substantial decreased and subcutaneous emphysema identified previously. IMPRESSION: 1. Trace residual left pneumothorax. 2. Stable position of 2 chest tubes in the left pleural space. 3. Increase in pleural effusions which remainsAll areas of scarring 4. Left upper lobe with adjacent faint infiltrate. Overall the pulmonary parenchymal findings in the left upper lobe appear to have improved. Similar less pronounced changes remain in the lingula. 5. Near complete resolution of subcutaneous emphysema.
--- NOTE | 2017-10-16 15:09 | CP.PCM.PN ---
Subjective - Date & Time of Evaluation Date of Evaluation: 10/16/17 Time of Evaluation: 14:57 - Subjective Subjective: Pt s/e. and rounded with residents and Dr. Faith. vss. [id number] chest tubes: 100/20/24hrs No air leak. ct chest this am: tiny penumothorax but left pleural effusion>right. Some in left loculated posteriorly. Pleural effusion will be an issue after removal of the chest tubes. Pleural effusions and apical nodule should be followed by his doctors at [facility](d/w pt and his . Will clam tube today and remove tubes tomorrow provided satisfactory cxr in am tomorrow. a/p: 1. Clamp tubes today. 2. Remove tubes tomorrow provided satisfactory cxr tomorrow. 3. Disposition as per Dr. Mayes. Objective - Vital Signs/Intake and Output Vital Signs (last 24 hours): Temp Pulse Resp BP Pulse Ox 98.5 F 92 H 21 125/63 99 10/16/17 12:22 10/16/17 12:22 10/16/17 12:22 10/16/17 12:22 10/16/17 12:22 Intake and Output: 10/16/17 10/16/17 06:59 18:59 Intake Total 606 590 Output Total 800 200 Balance -194 390 - Medications Medications: Current Medications Albuterol/Ipratropium (Duoneb 3 Mg/0.5 Mg (3 Ml) Ud) 3 ml INH RQID [facility] Last Admin: 10/16/17 11:22 Dose: 3 ml Atorvastatin Calcium (Lipitor) 40 mg PO DAILY@2100 [facility] Last Admin: 10/15/17 20:25 Dose: 40 mg Dextrose (Dextrose 50% Inj) 0 ml IV STAT PRN; Protocol PRN Reason: Hypoglycemia Protocol Dextrose (Glutose 15) 0 gm PO ONCE PRN; Protocol PRN Reason: Hypoglycemia Protocol Enoxaparin Sodium (Lovenox) 70 mg SC Q12 [facility] PRN Reason: Protocol Last Admin: 10/16/17 08:47 Dose: 70 mg Famotidine (Pepcid) 20 mg PO DAILY [facility] Last Admin: 10/16/17 08:46 Dose: 20 mg Finasteride (Proscar) 5 mg PO DAILY [facility] Last Admin: 10/16/17 08:45 Dose: 5 mg Gabapentin (Neurontin) 300 mg PO HS [facility] Last Admin: 10/15/17 21:02 Dose: 300 mg Glucagon (Glucagen Diagnostic Kit) 0 mg IM STAT PRN; Protocol PRN Reason: Hypoglycemia Protocol Hydrochlorothiazide (Microzide) 12.5 mg PO DAILY [facility] Last Admin: 10/08/17 14:04 Dose: Not Given Meropenem 1 gm/ Sodium (Chloride) 100 mls @ 100 mls/hr IVPB Q12 [facility] PRN Reason: Protocol Last Admin: 10/16/17 08:49 Dose: 100 mls/hr Vancomycin HCl 750 mg/ Sodium (Chloride) 250 mls @ 166.667 mls/hr IVPB Q12 [facility] PRN Reason: Protocol Last Admin: 10/16/17 10:30 Dose: 166.667 mls/hr Insulin Detemir (Levemir) 10 units SC [facility] Last Admin: 10/15/17 21:02 Dose: 10 units Insulin Human Regular (Humulin R) 0 units SC [facility] PRN Reason: Protocol Last Admin: 10/16/17 13:17 Dose: Not Given Levalbuterol HCl (Xopenex) 0.63 mg INH RQ4 PRN PRN Reason: Shortness of Breath Last Admin: 10/08/17 13:00 Dose: 0.63 mg Losartan Potassium (Cozaar) 50 mg PO DAILY [facility] Last Admin: 10/16/17 08:44 Dose: 50 mg Morphine Sulfate (Morphine) 2 mg IVP Q4 PRN PRN Reason: Pain, moderate (4-7) Last Admin: 10/16/17 13:20 Dose: 2 mg Morphine Sulfate (Morphine) 4 mg IVP Q4 PRN PRN Reason: Pain, severe (8-10) Last Admin: 10/13/17 22:30 Dose: 4 mg Ondansetron HCl (Zofran Inj) 4 mg IVP Q6 PRN PRN Reason: Nausea/Vomiting Oxycodone HCl (Oxycodone Immediate Release Tab) 5 mg PO Q6 PRN PRN Reason: Pain, Mild (1-3) Last Admin: 10/15/17 07:58 Dose: 5 mg Repaglinide (Prandin) 1 mg PO TIDAC [facility] Last Admin: 10/16/17 11:28 Dose: 1 mg Senna/Docusate Sodium (Senokot S 50 Mg-8.6 Mg) 2 tab PO HS [facility] Last Admin: 10/15/17 21:03 Dose: 2 tab - Labs Labs: 10/16/17 04:30 10/16/17 04:30 PT 13.3 Seconds (9.8-13.1) H 10/07/17 16:35 INR 1.2 10/07/17 16:35 APTT 34.1 Seconds (25.6-37.1) 10/07/17 16:35
--- NOTE | 2017-10-16 17:08 | CP.PCM.PN ---
Subjective - Date & Time of Evaluation Date of Evaluation: 10/16/17 Time of Evaluation: 08:50 - Subjective Subjective: Patient seen and examined at beside. He denies chest pain, SOB, palpitations. 1 BM last night. Endorsees good appetite. Patient's charts, labs, nurse notes reviewed. Objective - Vital Signs/Intake and Output Vital Signs (last 24 hours): Temp Pulse Resp BP Pulse Ox 98 F 98 H 22 128/69 100 10/16/17 16:00 10/16/17 16:00 10/16/17 16:00 10/16/17 16:00 10/16/17 16:00 Intake and Output: 10/16/17 10/16/17 06:59 18:59 Intake Total 606 840 Output Total 800 200 Balance -194 640 - Medications Medications: Current Medications Albuterol/Ipratropium (Duoneb 3 Mg/0.5 Mg (3 Ml) Ud) 3 ml INH RQID [facility] Last Admin: 10/16/17 15:17 Dose: 3 ml Atorvastatin Calcium (Lipitor) 40 mg PO DAILY@2100 [facility] Last Admin: 10/15/17 20:25 Dose: 40 mg Dextrose (Dextrose 50% Inj) 0 ml IV STAT PRN; Protocol PRN Reason: Hypoglycemia Protocol Dextrose (Glutose 15) 0 gm PO ONCE PRN; Protocol PRN Reason: Hypoglycemia Protocol Enoxaparin Sodium (Lovenox) 70 mg SC Q12 [facility] PRN Reason: Protocol Last Admin: 10/16/17 08:47 Dose: 70 mg Famotidine (Pepcid) 20 mg PO DAILY [facility] Last Admin: 10/16/17 08:46 Dose: 20 mg Finasteride (Proscar) 5 mg PO DAILY [facility] Last Admin: 10/16/17 08:45 Dose: 5 mg Gabapentin (Neurontin) 300 mg PO HS [facility] Last Admin: 10/15/17 21:02 Dose: 300 mg Glucagon (Glucagen Diagnostic Kit) 0 mg IM STAT PRN; Protocol PRN Reason: Hypoglycemia Protocol Hydrochlorothiazide (Microzide) 12.5 mg PO DAILY [facility] Last Admin: 10/08/17 14:04 Dose: Not Given Meropenem 1 gm/ Sodium (Chloride) 100 mls @ 100 mls/hr IVPB Q12 [facility] PRN Reason: Protocol Last Admin: 10/16/17 08:49 Dose: 100 mls/hr Vancomycin HCl 750 mg/ Sodium (Chloride) 250 mls @ 166.667 mls/hr IVPB Q12 [facility] PRN Reason: Protocol Last Admin: 10/16/17 10:30 Dose: 166.667 mls/hr Insulin Detemir (Levemir) 10 units SC HS [facility] Last Admin: 10/15/17 21:02 Dose: 10 units Insulin Human Regular (Humulin R) 0 units SC [facility] PRN Reason: Protocol Last Admin: 10/16/17 16:26 Dose: Not Given Levalbuterol HCl (Xopenex) 0.63 mg INH RQ4 PRN PRN Reason: Shortness of Breath Last Admin: 10/08/17 13:00 Dose: 0.63 mg Losartan Potassium (Cozaar) 50 mg PO DAILY [facility] Last Admin: 10/16/17 08:44 Dose: 50 mg Morphine Sulfate (Morphine) 2 mg IVP Q4 PRN PRN Reason: Pain, moderate (4-7) Last Admin: 10/16/17 13:20 Dose: 2 mg Morphine Sulfate (Morphine) 4 mg IVP Q4 PRN PRN Reason: Pain, severe (8-10) Last Admin: 10/13/17 22:30 Dose: 4 mg Ondansetron HCl (Zofran Inj) 4 mg IVP Q6 PRN PRN Reason: Nausea/Vomiting Oxycodone HCl (Oxycodone Immediate Release Tab) 5 mg PO Q6 PRN PRN Reason: Pain, Mild (1-3) Last Admin: 10/15/17 07:58 Dose: 5 mg Repaglinide (Prandin) 1 mg PO TIDAC [facility] Last Admin: 10/16/17 16:24 Dose: 1 mg Senna/Docusate Sodium (Senokot S 50 Mg-8.6 Mg) [address] [facility] Last Admin: 10/15/17 21:03 Dose: 2 tab - Labs Labs: 10/16/17 04:30 10/16/17 04:30 PT 13.3 Seconds (9.8-13.1) H 10/07/17 16:35 INR 1.2 10/07/17 16:35 APTT 34.1 Seconds (25.6-37.1) 10/07/17 16:35 - Constitutional Appears: No Acute Distress - Head Exam Head Exam: ATRAUMATIC - Eye Exam Eye Exam: Normal appearance - ENT Exam ENT Exam: Mucous Membranes Moist - Respiratory Exam Respiratory Exam: Clear to Ausculation Bilateral, NORMAL BREATHING PATTERN Additional comments: Left ant. and post. chest tubes in place - Cardiovascular Exam Cardiovascular Exam: REGULAR RHYTHM, RRR, +S1, +S2 - GI/Abdominal Exam GI & Abdominal Exam: Soft, Normal Bowel Sounds. absent: Tenderness - Extremities Exam Extremities Exam: Normal Capillary Refill, Normal Inspection. absent: Pedal Edema, Tenderness - Back Exam Back Exam: absent: CVA tenderness (L), CVA tenderness (R) - Neurological Exam Neurological Exam: Alert, Awake, Oriented x3 - Skin Skin Exam: Dry, Intact, Warm Assessment and Plan - Assessment and Plan (Free Text) Assessment: 76 year old male w/ hx of HTN, COPD, DM2, atrial fibrillation who was admitted for left pneumothorax which developed s/p lung biopsy, now POD #7 s/p left anterior and posterior chest tubes placement. Plan: Left lung Pneumothorax -CT Chest 10/16/17: trace residual left penumothorax, increase in plural effusions. -Thoracic Surgery Consult, Dr. Justice: chest tubes clamped today, possible removal tomorrow if CXR unremarkable. Patient advised to follow up w/ [facility] regarding effusions and lung nodule. -s/p POD #7 left anterior and posterior chest tubes placement -s/p Left lung biopsy at [facility] clinic on 10/04/[address] Hameed convey organized pneumonia -10/07/17: CT Chest: Left lung Pneumothorax, 40% lung collapsed -10/10/17: CT chest: no significant pneumothorax following placement of second chest tube, improved aeration and expansion -Pulmonology Consult appreciated: Dr. Hameed, will follow recommendations -Continue high flow O2 supplementation via nasal cannula, monitor respiratory status -Mycoplasma Igm and Legionella Ur Ag negative Blood cultures positive for gram+ cocci -10/07/2017 GPC+ in anaerobic sample, possible contaminant. 10/09 blood culture gram + bacilli -repeat blood cultures 10/10 no growth after 96 hours -ID consult appreciated; Meropenem 1 gm IV Q12 day #8 -Vancomycin 750 mg Q12 day #7 with trough goal <20. Vanc trough 10/13/17: 10.4. -TTE did not show evidence of vegetations. will discuss follow up w/ JANAE w/ cardio Atrial Fibrillation -Chronic, asymptomatic -Cardiology consult appreciated: Dr. Last -Coumadin held per Dr. Last, latest INR 10/07/17 1.2 -was previously on digoxin, but this was d/c by Dr. Last in May due to detection of brief pauses EKG -no beta blockers as patient has limited respiratory reserve -Now on Lovenox 70 mg SC Q12 COPD -severe, chronic, Controlled -Pulmonology consult appreciated: Dr. Hameed -continue with Duonebs INH RQID [facility], Xopenex INH RQ4 PRN -hold Spiriva 18 mcg INH QD, hold Advair Diskus 500/50 1 puff IH Q12: per pulmonology -hold Ventolin HFA 2 puff IH Q6 PRN -monitor respiratory status Elevated ProBNP and Troponin -Echo done 10/12/17: results pending -serial troponins trending down -last echo in May showed EF 40-40%. However, per Dr. Last, patient has preserved left ventricular systolic function and elevated troponins are likely 2 /2 tachycardia induced myocyte injury -EKG findings likely 2/2 pneumothorax shifting mediastinum Left Lung Nodule, s/p Lung Biopsy on 10/04/17 at [facility] -bx showed organized pneumonia per Dr. Hameed who spoke w/ Faustino Noriega -awaiting official path report Diabetes Mellitus type 2 -chronic, controlled -Repaglinide 2mg TID decreased to 1mg PO TIDAC due to hypoglycemia (if hypoglycemia persists, will decrease to 1 mg po BID) -continue with home medications: Levemir 10 SC [facility]. Insulin regular coverage scale added -Hypoglycemic treatment protocol in place -[facility] -Last HBA1C: 7.7 on 05/2017 -Diet: heart healthy, low carbohydrate Hypertension -chronic, controlled -continue home medication: Losartan 50 mg PO QD -HCTZ held -monitor BP HLD -chronic, controlled -continue home medication: atorvastatin 40mg DVT Prophylaxis -Now on Lovenox 70 mg SC Q12 -Discussed risks and benefits w/ chaperon Full Code -Next of kin: , [place] [phone]
[2017-10-16] MEDS: Insulin Detemir 100 Units/ml Inj SC SCH (21:41)
[2017-10-16] MEDS: Docusate-Senna 50 mg-8.6 mg Tab PO SCH ×2 (21:43→21:46)
[2017-10-17 06:03] LABS: HEMOGLOBIN 12.6 g/dL (12.0-18.0); MEAN CELL VOLUME 92.1 fl (80.0-94.0); MEAN CORPUSCULAR HEMOGLOBIN 31.6 pg (27.0-31.0); MEAN CORPUSCULAR HGB CONC 34.4 g/dL (33.0-37.0); RBC 3.99 Mil/uL (4.40-5.90); RED CELL DISTRIBUTION WIDTH 13.6 % (11.5-14.5); WHITE BLOOD COUNT 8.8 K/uL (4.8-10.8)
[2017-10-17 06:05] LABS: BLOOD UREA NITROGEN 14 mg/dl (9-20); CALCIUM 9.1 mg/dL (8.4-10.2); GFR AFRICAN-AMERICAN > 60; GFR NON-AFRICAN AMERICAN > 60
[2017-10-17] MEDS: Insulin Regular 100 units/ml SC SCH ×3 (06:52→16:54)
--- NOTE | 2017-10-17 07:44 | CP.PCM.PN ---
Subjective - Date & Time of Evaluation Date of Evaluation: 10/17/17 Time of Evaluation: 07:42 - Subjective Subjective: CT surgery progress note for Dr. Apple Garcia, PGY-2 Pt S & E at bedside at 0720 Pt without complaints today. Ready for chest tubes to be removed. No acute events overnight as per nursing. Objective - Vital Signs/Intake and Output Vital Signs (last 24 hours): Temp Pulse Resp BP Pulse Ox 98.4 F 92 H 20 134/74 100 10/17/17 04:00 10/17/17 06:00 10/17/17 06:00 10/17/17 06:00 10/17/17 06:00 Intake and Output: 10/17/17 10/17/17 06:59 18:59 Intake Total 664 Output Total 1000 Balance -336 - Medications Medications: Current Medications Albuterol/Ipratropium (Duoneb 3 Mg/0.5 Mg (3 Ml) Ud) 3 ml INH RQID [facility] Last Admin: 10/16/17 19:08 Dose: 3 ml Atorvastatin Calcium (Lipitor) 40 mg PO DAILY@2100 [facility] Last Admin: 10/16/17 21:34 Dose: 40 mg Dextrose (Dextrose 50% Inj) 0 ml IV STAT PRN; Protocol PRN Reason: Hypoglycemia Protocol Dextrose (Glutose 15) 0 gm PO ONCE PRN; Protocol PRN Reason: Hypoglycemia Protocol Enoxaparin Sodium (Lovenox) 70 mg SC Q12 [facility] PRN Reason: Protocol Last Admin: 10/16/17 20:18 Dose: 70 mg Famotidine (Pepcid) 20 mg PO DAILY [facility] Last Admin: 10/16/17 08:46 Dose: 20 mg Finasteride (Proscar) 5 mg PO DAILY [facility] Last Admin: 10/16/17 08:45 Dose: 5 mg Gabapentin (Neurontin) 300 mg PO HS [facility] Last Admin: 10/16/17 21:34 Dose: 300 mg Glucagon (Glucagen Diagnostic Kit) 0 mg IM STAT PRN; Protocol PRN Reason: Hypoglycemia Protocol Hydrochlorothiazide (Microzide) 12.5 mg PO DAILY [facility] Last Admin: 10/08/17 14:04 Dose: Not Given Meropenem 1 gm/ Sodium (Chloride) 100 mls @ 100 mls/hr IVPB Q12 [facility] PRN Reason: Protocol Last Admin: 10/16/17 20:19 Dose: 100 mls/hr Vancomycin HCl 750 mg/ Sodium (Chloride) 250 mls @ 166.667 mls/hr IVPB Q12 [facility] PRN Reason: Protocol Last Admin: 10/16/17 21:35 Dose: 166.667 mls/hr Insulin Detemir (Levemir) 10 units SC [facility] Last Admin: 10/16/17 21:41 Dose: 10 units Insulin Human Regular (Humulin R) 0 units SC A[facility] PRN Reason: Protocol Last Admin: 10/17/17 06:52 Dose: Not Given Levalbuterol HCl (Xopenex) 0.63 mg INH RQ4 PRN PRN Reason: Shortness of Breath Last Admin: 10/08/17 13:00 Dose: 0.63 mg Losartan Potassium (Cozaar) 50 mg PO DAILY [facility] Last Admin: 10/16/17 08:44 Dose: 50 mg Morphine Sulfate (Morphine) 2 mg IVP Q4 PRN PRN Reason: Pain, moderate (4-7) Last Admin: 10/16/17 13:20 Dose: 2 mg Morphine Sulfate (Morphine) 4 mg IVP Q4 PRN PRN Reason: Pain, severe (8-10) Last Admin: 10/16/17 20:06 Dose: 4 mg Ondansetron HCl (Zofran Inj) 4 mg IVP Q6 PRN PRN Reason: Nausea/Vomiting Oxycodone HCl (Oxycodone Immediate Release Tab) 5 mg PO Q6 PRN PRN Reason: Pain, Mild (1-3) Last Admin: 10/15/17 07:58 Dose: 5 mg Repaglinide (Prandin) 1 mg PO TIDAC [facility] Last Admin: 10/17/17 06:53 Dose: 1 mg Senna/Docusate Sodium (Senokot S 50 Mg-8.6 Mg) 2 tab PO HS [facility] Last Admin: 10/16/17 21:46 Dose: Not Given - Labs Labs: 10/17/17 04:00 10/17/17 05:46 PT 13.3 Seconds (9.8-13.1) H 10/07/17 16:35 INR 1.2 10/07/17 16:35 APTT 34.1 Seconds (25.6-37.1) 10/07/17 16:35 - Constitutional Appears: Non-toxic, No Acute Distress - Head Exam Head Exam: ATRAUMATIC, NORMAL INSPECTION, NORMOCEPHALIC - Eye Exam Eye Exam: EOMI, Normal appearance - ENT Exam ENT Exam: Mucous Membranes Moist, Normal Exam - Neck Exam Neck Exam: Full ROM, Normal Inspection - Respiratory Exam Respiratory Exam: NORMAL BREATHING PATTERN Additional comments: Chest tubes removed x 2, suture tied for each site. Dressings applied. - Cardiovascular Exam Cardiovascular Exam: REGULAR RHYTHM - GI/Abdominal Exam GI & Abdominal Exam: Soft. absent: Tenderness - Extremities Exam Extremities Exam: Normal Inspection - Neurological Exam Neurological Exam: Alert, Awake, CN II-XII Intact, Oriented x3 - Psychiatric Exam Psychiatric exam: Normal Affect, Normal Mood - Skin Skin Exam: Dry, Intact, Normal Color, Warm Assessment and Plan - Assessment and Plan (Free Text) Assessment: 76F w/Left pneumothorax s/p CT insertion x 2 AM CXR without pneumothorax Plan: CT removed x 2 Dressing to stay in place for 2 days FU CXR at 1030am Further mgmt as per primary & ICU teams Will ALEXANDRO attending Radha, PGY-2
[2017-10-17] MEDS: Albuterol-Ipratrop 3 mg / 0.5 (3 ml) UD INH SCH ×3 (07:58→15:26)
[2017-10-17] MEDS: Meropenem 1 GM in Sodium Chloride 0.9% 100 ML IVPB SCH (08:11)
[2017-10-17] MEDS: Enoxaparin 80 mg Syringe SC SCH (08:16)
--- NOTE | 2017-10-17 08:44 | RAD ---
Date of service: 10/17/2017 HISTORY: left chest tube COMPARISON: 10/16/2017. FINDINGS: Stable position of 2 left-sided chest tubes. LUNGS: The lungs are hyperinflated and there is peribronchial thickening with chronic changes in both lungs. There is redemonstration of fibrosis in the right upper lobe and left lower lobe. No focal consolidation PLEURA: No significant pleural effusion identified, no pneumothorax apparent. CARDIOVASCULAR: Normal. OSSEOUS STRUCTURES: No significant abnormalities. VISUALIZED UPPER ABDOMEN: Normal. OTHER FINDINGS: None. IMPRESSION: Stable position of left-sided chest tube. No definite evidence for pneumothorax. COPD.
--- NOTE | 2017-10-17 11:28 | CP.PCM.PN ---
Subjective - Date & Time of Evaluation Date of Evaluation: 10/17/17 Time of Evaluation: 07:20 - Subjective Subjective: Patient seen and examined at bedside during morning rounds in ICU. Chest tubes clamped, Removed earlier this morning. Mild residual pain at chest tube insertion site. Denies any SOB, cough, fever, chills. Vital signs stable. Patient currently on 3L Nasal cannula. Trachea midline. Breath sounds diminished lower lobes. No audible wheezes. Few dry rales left lower lobe posteriorly. No pedal edema or cyanosis. Chest tubes removed earlier this morning. CXR to be done at 10.[address] chest consistent with mild-moderate left sided pleural effusion and mild right sided pleural effusion. Near complete resolution of subcuteneous emphysema. Patient most likely to be transferred to rehab. Will repeat CXR to monitor for pleural effusion. C/W current medical and aerosol regimen. Objective - Vital Signs/Intake and Output Vital Signs (last 24 hours): Temp Pulse Resp BP Pulse Ox 98.4 F 88 16 133/59 L 99 10/17/17 08:00 10/17/17 10:00 10/17/17 10:00 10/17/17 10:00 10/17/17 10:00 Intake and Output: 10/17/17 10/17/17 06:59 18:59 Intake Total 664 550 Output Total 1000 Balance -336 550 - Medications Medications: Current Medications Albuterol/Ipratropium (Duoneb 3 Mg/0.5 Mg (3 Ml) Ud) 3 ml INH RQID [facility] Last Admin: 10/17/17 07:58 Dose: 3 ml Atorvastatin Calcium (Lipitor) 40 mg PO DAILY@2100 [facility] Last Admin: 10/16/17 21:34 Dose: 40 mg Dextrose (Dextrose 50% Inj) 0 ml IV STAT PRN; Protocol PRN Reason: Hypoglycemia Protocol Dextrose (Glutose 15) 0 gm PO ONCE PRN; Protocol PRN Reason: Hypoglycemia Protocol Enoxaparin Sodium (Lovenox) 70 mg SC Q12 [facility] PRN Reason: Protocol Last Admin: 10/17/17 08:16 Dose: 70 mg Famotidine (Pepcid) 20 mg PO DAILY [facility] Last Admin: 10/17/17 08:16 Dose: 20 mg Finasteride (Proscar) 5 mg PO DAILY [facility] Last Admin: 10/17/17 08:15 Dose: 5 mg Gabapentin (Neurontin) 300 mg PO [facility] Last Admin: 10/16/17 21:34 Dose: 300 mg Glucagon (Glucagen Diagnostic Kit) 0 mg IM STAT PRN; Protocol PRN Reason: Hypoglycemia Protocol Hydrochlorothiazide (Microzide) 12.5 mg PO DAILY [facility] Last Admin: 10/08/17 14:04 Dose: Not Given Meropenem 1 gm/ Sodium (Chloride) 100 mls @ 100 mls/hr IVPB Q12 [facility] PRN Reason: Protocol Last Admin: 10/17/17 08:11 Dose: 100 mls/hr Vancomycin HCl 750 mg/ Sodium (Chloride) 250 mls @ 166.667 mls/hr IVPB Q12 [facility] PRN Reason: Protocol Last Admin: 10/16/17 21:35 Dose: 166.667 mls/hr Insulin Detemir (Levemir) 10 units SC [facility] Last Admin: 10/16/17 21:41 Dose: 10 units Insulin Human Regular (Humulin R) 0 units SC [facility] PRN Reason: Protocol Last Admin: 10/17/17 06:52 Dose: Not Given Levalbuterol HCl (Xopenex) 0.63 mg INH RQ4 PRN PRN Reason: Shortness of Breath Last Admin: 10/08/17 13:00 Dose: 0.63 mg Losartan Potassium (Cozaar) 50 mg PO DAILY [facility] Last Admin: 10/17/17 08:15 Dose: 50 mg Morphine Sulfate (Morphine) 2 mg IVP Q4 PRN PRN Reason: Pain, moderate (4-7) Last Admin: 10/17/17 10:41 Dose: 2 mg Morphine Sulfate (Morphine) 4 mg IVP Q4 PRN PRN Reason: Pain, severe (8-10) Last Admin: 10/16/17 20:06 Dose: 4 mg Ondansetron HCl (Zofran Inj) 4 mg IVP Q6 PRN PRN Reason: Nausea/Vomiting Oxycodone HCl (Oxycodone Immediate Release Tab) 5 mg PO Q6 PRN PRN Reason: Pain, Mild (1-3) Last Admin: 10/15/17 07:58 Dose: 5 mg Repaglinide (Prandin) 1 mg PO TIDAC [facility] Last Admin: 10/17/17 06:53 Dose: 1 mg Senna/Docusate Sodium (Senokot S 50 Mg-8.6 Mg) 2 tab PO HS [facility] Last Admin: 10/16/17 21:46 Dose: Not Given - Labs Labs: 10/17/17 04:00 10/17/17 05:46 PT 13.3 Seconds (9.8-13.1) H 10/07/17 16:35 INR 1.2 10/07/17 16:35 APTT 34.1 Seconds (25.6-37.1) 10/07/17 16:35 Assessment and Plan (1) Pneumothorax Status: Acute (2) COPD (chronic obstructive pulmonary disease) Status: Chronic
--- NOTE | 2017-10-17 12:11 | CP.PCM.PN ---
Subjective - Date & Time of Evaluation Date of Evaluation: 10/17/17 Time of Evaluation: 12:11 - Subjective Subjective: ID note- Pt. seen and examined today in ICU. pt. is in good spirits. he is s/p removal of the 2 chest tubes earlier today and other than some pain at the site of the chest tubes he denies any complaints. he states he is going to [facility] today. Objective - Vital Signs/Intake and Output Vital Signs (last 24 hours): Temp Pulse Resp BP Pulse Ox 98.4 F 88 16 133/59 L 99 10/17/17 08:00 10/17/17 10:00 10/17/17 10:00 10/17/17 10:00 10/17/17 10:00 Intake and Output: 10/17/17 10/17/17 06:59 18:59 Intake Total 664 550 Output Total 1000 Balance -336 550 - Medications Medications: Current Medications Albuterol/Ipratropium (Duoneb 3 Mg/0.5 Mg (3 Ml) Ud) 3 ml INH RQID [facility] Last Admin: 10/17/17 11:19 Dose: 3 ml Atorvastatin Calcium (Lipitor) 40 mg PO DAILY@2100 [facility] Last Admin: 10/16/17 21:34 Dose: 40 mg Dextrose (Dextrose 50% Inj) 0 ml IV STAT PRN; Protocol PRN Reason: Hypoglycemia Protocol Dextrose (Glutose 15) 0 gm PO ONCE PRN; Protocol PRN Reason: Hypoglycemia Protocol Enoxaparin Sodium (Lovenox) 70 mg SC Q12 [facility]ISES PRN Reason: Protocol Last Admin: 10/17/17 08:16 Dose: 70 mg Famotidine (Pepcid) 20 mg PO DAILY [facility] Last Admin: 10/17/17 08:16 Dose: 20 mg Finasteride (Proscar) 5 mg PO DAILY [facility] Last Admin: 10/17/17 08:15 Dose: 5 mg Gabapentin (Neurontin) 300 mg PO HS [facility] Last Admin: 10/16/17 21:34 Dose: 300 mg Glucagon (Glucagen Diagnostic Kit) 0 mg IM STAT PRN; Protocol PRN Reason: Hypoglycemia Protocol Hydrochlorothiazide (Microzide) 12.5 mg PO DAILY [facility] Last Admin: 10/08/17 14:04 Dose: Not Given Meropenem 1 gm/ Sodium (Chloride) 100 mls @ 100 mls/hr IVPB Q12 [facility]ISES PRN Reason: Protocol Last Admin: 10/17/17 08:11 Dose: 100 mls/hr Vancomycin HCl 750 mg/ Sodium (Chloride) 250 mls @ 166.667 mls/hr IVPB Q12 [facility] PRN Reason: Protocol Last Admin: 10/17/17 10:00 Dose: 166.667 mls/hr Insulin Detemir (Levemir) 10 units SC [facility] Last Admin: 10/16/17 21:41 Dose: 10 units Insulin Human Regular (Humulin R) 0 units SC [facility] PRN Reason: Protocol Last Admin: 10/17/17 11:56 Dose: Not Given Levalbuterol HCl (Xopenex) 0.63 mg INH RQ4 PRN PRN Reason: Shortness of Breath Last Admin: 10/08/17 13:00 Dose: 0.63 mg Losartan Potassium (Cozaar) 50 mg PO DAILY [facility] Last Admin: 10/17/17 08:15 Dose: 50 mg Morphine Sulfate (Morphine) 2 mg IVP Q4 PRN PRN Reason: Pain, moderate (4-7) Last Admin: 10/17/17 10:41 Dose: 2 mg Morphine Sulfate (Morphine) 4 mg IVP Q4 PRN PRN Reason: Pain, severe (8-10) Last Admin: 10/16/17 20:06 Dose: 4 mg Ondansetron HCl (Zofran Inj) 4 mg IVP Q6 PRN PRN Reason: Nausea/Vomiting Oxycodone HCl (Oxycodone Immediate Release Tab) 5 mg PO Q6 PRN PRN Reason: Pain, Mild (1-3) Last Admin: 10/15/17 07:58 Dose: 5 mg Repaglinide (Prandin) 1 mg PO TIDAC [facility] Last Admin: 10/17/17 12:01 Dose: 1 mg Senna/Docusate Sodium (Senokot S 50 Mg-8.6 Mg) 2 tab PO [facility] Last Admin: 10/16/17 21:46 Dose: Not Given - Labs Labs: - Additional Findings Additional findings: - Constitutional Appears: NAD - Head Exam Head Exam: ATRAUMATIC - Eye Exam Eye Exam: EOMI, PERRL - ENT Exam ENT Exam: Normal Oropharynx - Neck Exam Neck exam: Positive for: Full Rom - Respiratory Exam Additional comments: chest tube shave been removed. no subcutaneous emphysema felt anymore good breath sounds b/l - Cardiovascular Exam Cardiovascular Exam: Tachycardia, +S1, +S2 - GI/Abdominal Exam GI & Abdominal Exam: Normal Bowel Sounds, Soft Additional comments: NT, ND - Extremities Exam Extremities exam: Positive for: normal inspection Additional comments: no edema B/L LE - Neurological Exam Neurological exam: Alert, Oriented x 3 Laboratory Results - last 72 hr 10/13/17 10/14/17 10/14/17 21:23 06:05 12:21 WBC RBC Hgb Hct MCV MCH MCHC RDW Plt Count Sodium Potassium Chloride Carbon Dioxide Anion Gap BUN Creatinine Est GFR ( Amer) Est GFR (Non-Af Amer) POC Glucose (mg/dL) 82 80 161 H Random Glucose Calcium Total Bilirubin AST ALT Alkaline Phosphatase Total Protein Albumin Globulin Albumin/Globulin Ratio Vancomycin Trough 10/14/17 10/14/17 10/15/17 16:21 21:41 05:21 WBC RBC Hgb Hct MCV MCH MCHC RDW Plt Count Sodium Potassium Chloride Carbon Dioxide Anion Gap BUN Creatinine Est GFR ( Amer) Est GFR (Non-Af Amer) POC Glucose (mg/dL) 173 H 115 H 96 Random Glucose Calcium Total Bilirubin AST ALT Alkaline Phosphatase Total Protein Albumin Globulin Albumin/Globulin Ratio Vancomycin Trough 10/15/17 10/15/17 10/15/17 05:52 05:52 11:32 WBC 8.2 RBC 3.85 L Hgb 12.4 Hct 35.8 MCV 92.9 MCH 32.3 H MCHC 34.8 RDW 13.5 Plt Count 242 Sodium 137 Potassium 4.2 Chloride 101 Carbon Dioxide 30 Anion Gap 10 BUN 18 Creatinine 0.6 L Est GFR ( Amer) > 60 Est GFR (Non-Af Amer) > 60 POC Glucose (mg/dL) 137 H Random Glucose 93 Calcium 8.8 Total Bilirubin 0.9 AST 55 ALT 52 Alkaline Phosphatase 56 Total Protein 5.7 L Albumin 3.1 L Globulin 2.6 Albumin/Globulin Ratio 1.2 Vancomycin Trough 10/15/17 10/15/17 10/16/17 16:29 20:34 04:30 WBC RBC Hgb Hct MCV MCH MCHC RDW Plt Count Sodium 136 Potassium 4.0 Chloride 100 Carbon Dioxide 31 H Anion Gap 9 L BUN 15 Creatinine 0.6 L Est GFR ( Amer) > 60 Est GFR (Non-Af Amer) > 60 POC Glucose (mg/dL) 122 H 117 H Random Glucose 69 L Calcium 9.0 Total Bilirubin AST ALT Alkaline Phosphatase Total Protein Albumin Globulin Albumin/Globulin Ratio Vancomycin Trough 10/16/17 10/16/17 10/16/17 04:30 05:04 05:26 WBC 7.7 RBC 3.44 L Hgb 11.0 L Hct 31.8 L MCV 92.3 MCH 32.1 H MCHC 34.7 RDW 13.3 Plt Count 219 Sodium Potassium Chloride Carbon Dioxide Anion Gap BUN Creatinine Est GFR ( Amer) Est GFR (Non-Af Amer) POC Glucose (mg/dL) 57 L 218 H Random Glucose Calcium Total Bilirubin AST ALT Alkaline Phosphatase Total Protein Albumin Globulin Albumin/Globulin Ratio Vancomycin Trough 10/16/17 10/16/17 10/16/17 10:50 16:21 20:17 WBC RBC Hgb Hct MCV MCH MCHC RDW Plt Count Sodium Potassium Chloride Carbon Dioxide Anion Gap BUN Creatinine Est GFR ( Amer) Est GFR (Non-Af Amer) POC Glucose (mg/dL) 101 126 H 94 Random Glucose Calcium Total Bilirubin AST ALT Alkaline Phosphatase Total Protein Albumin Globulin Albumin/Globulin Ratio Vancomycin Trough 10/17/17 10/17/17 10/17/17 04:00 04:48 04:55 WBC 8.8 RBC 3.99 L Hgb 12.6 Hct 36.7 MCV 92.1 MCH 31.6 H MCHC 34.4 RDW 13.6 Plt Count 279 Sodium Potassium Chloride Carbon Dioxide Anion Gap BUN Creatinine Est GFR ( Amer) Est GFR (Non-Af Amer) POC Glucose (mg/dL) 80 Random Glucose Calcium Total Bilirubin AST ALT Alkaline Phosphatase Total Protein Albumin Globulin Albumin/Globulin Ratio Vancomycin Trough 16.0 H 10/17/17 10/17/17 10/17/17 05:46 11:37 16:53 WBC RBC Hgb Hct MCV MCH MCHC RDW Plt Count Sodium 137 Potassium 4.3 Chloride 99 Carbon Dioxide 31 H Anion Gap 11 BUN 14 Creatinine 0.7 L Est GFR ( Amer) > 60 Est GFR (Non-Af Amer) > 60 POC Glucose (mg/dL) 134 H 69 Random Glucose 87 Calcium 9.1 Total Bilirubin AST ALT Alkaline Phosphatase Total Protein Albumin Globulin Albumin/Globulin Ratio Vancomycin Trough Microbiology 10/16/17 12:23 Blood-Venous Blood Culture - Preliminary NO GROWTH AFTER 24 HOURS 10/16/17 12:23 Blood-Venous Blood Culture - Preliminary NO GROWTH AFTER 24 HOURS 10/13/17 19:56 Blood-Venous Blood Culture - Preliminary NO GROWTH AFTER 3 DAYS 10/13/17 19:46 Blood-Venous Blood Culture - Preliminary NO GROWTH AFTER 3 DAYS 10/09/17 18:00 Blood-Venous Blood Culture - Final Bifidobacterium Species 10/09/17 18:00 Blood-Venous Gram Stain - Final 10/10/17 16:30 Pleural Fluid Gram Stain - Final 10/10/17 16:30 Pleural Fluid Body Fluid Culture - Final Staphylococcus Sp Coag Neg 10/10/17 10:40 Blood-Venous Blood Culture - Final NO GROWTH AFTER 5 DAYS 10/10/17 10:40 Blood-Venous Gram Stain - Final TEST NOT PERFORMED 10/10/17 19:26 Urine Urine Culture - Final No Growth (<1,000 CFU/ML) 10/07/17 16:35 Blood-Venous Blood Culture - Final NO GROWTH AFTER 5 DAYS 10/07/17 16:35 Blood-Venous Gram Stain - Final TEST NOT PERFORMED 10/09/17 15:00 Other: Please Indicate Gram Stain - Final 10/09/17 15:00 Other: Please Indicate Wound Culture - Final No growth. 10/09/17 15:00 Other: Please Indicate Gram Stain - Final 10/09/17 15:00 Other: Please Indicate Wound Culture - Final No growth. 10/07/17 16:35 Blood-Venous S.aureus & Coag-Neg Staph PNA FISH - Final 10/07/17 16:35 Blood-Venous Blood Culture - Final Coagulase Neg Staphylococcus 10/07/17 16:35 Blood-Venous Gram Stain - Final 10/10/17 11:17 Sputum Gram Stain - Final 10/10/17 11:17 Sputum Sputum Culture - Final Yeast Species Assessment and Plan (1) Pneumothorax Status: Resolved (2) COPD exacerbation Status: Acute (3) Pulmonary nodules/lesions, multiple Status: Chronic (4) Leukocytosis Status: Resolved (5) Pulmonary emphysema Status: Chronic - Assessment and Plan (Free Text) Assessment: A/P- 76 year old male with multiple medical conditions including COPD, A.Fib, DM II s /p lung biopsy later developed pneumothorax s/p chest tuube 4 days ago , not improved and had developed left sided chest subcutaneous emphysema s/p 2 chest tubes . s/p chest tube removal today. afebrile leukocytosis resolved. blood cx from 10/07 - one out of 2 bottles reported coag neg staph ( most likely contaminant) repeat blood cx- neg x 1( 10/10/2017) blood cx from 10/09/2017- Bifidobacterium species ( anerobic bottle only)!!! repeat blood cx 10/13/2017 and 10/16/2017- neg x 4 OR cx- no growth pleural fluid cx- coag neg staph mycoplasma IGm- neg Urine legionellla Ag- Neg pleural fluid cx- neg sputum cx- yeast TTE report- no mention of vegetations as per report. repeat chest CT report noted. Plan- the 1 out of 2 blood cx reported coag neg staph after 3 days and only on anaerobic bottle is most likely a contaminant. however since pt. has had multiple procedures continue with IV vanco , day #7 keep trough <20. the blood cx from 10/09/2017 Identified yesterday as Bifidobacterium. Bifidobacterium species could be considered as nonpathogenic bacteria, as these anaerobic, gram-positive rods are part of the physiological oral, vaginal , and intestinal janine. Bacteremia due to Bifidobacterium species has been seen at times with use of probiotics. regardless bifidobacterium species are sensitive to vancomycin . repeat blood cx - neg x 4 advise 7 more days of Iv vancomycin. advise to get another TTE since the initial one was reported as poor visulaization and need to have IE ruled out. advise to continue with broad spectrum meropenem abx for nosocomial coverage . day #8 advise 2 more days of IV meropenem. All labs and imaging reviewed. ICU time 35 minutes.
--- NOTE | 2017-10-17 12:14 | RAD ---
Date of service: 10/17/2017 PROCEDURE: CHEST RADIOGRAPH, 1 VIEW HISTORY: s/p chest tube removal COMPARISON: October 17, 2017. Time of the most recent examination: 04:25. FINDINGS: LUNGS: Atelectatic changes at the lung bases. PLEURA: No pneumothorax following removal of to chest tubes left pleural space. CARDIOVASCULAR: Normal. OSSEOUS STRUCTURES: No significant abnormalities. VISUALIZED UPPER ABDOMEN: Normal. OTHER FINDINGS: None. IMPRESSION: Status post chest tube removal left pleural space. No pneumothorax.
--- NOTE | 2017-10-17 12:31 | CP.CCUPN ---
CCU Subjective - Physician Review Subjective (Free Text): 10/16/17 The patient was Seen/interviewed and examined by me at the bedside during ICU round, Medical records reviewed and Management issues were discussed and formulated with the house staff. Events reviewed 76 Years old Male with PMHx of HTN, Hypercholesterolemia, Atrial Fibrillation, COPD, Emphysema, Pneumonia, Chronic Kidney Disease and multiple pulmonary nodules S/P HAYDE biopsy on 10/04 at [facility] Who presented to the Emergency department 10/07 complaining of shortness of breath and Hemopyysis post lung Biopsy He was found to have pneumothorax, now with persistent air-leak despite chest tube placement. 10/09 He underwent insertion of left anterior and left posterior chest tube with evacuation of small hemothorax Procedure done under General Anesthesia and was uneventful Patient was successfully extubated, admitted to ICU hemodynamically stable, Today Pt AAO x3, Feeling better, Pain better controlled, Comfortable, NAD Denies any chest pain or SOB B/L chest tubes removed this morning Repeat CXR revealed No pneumothorax CCU Objective - Vital Signs / Intake & Output Vital Signs (Last 4 hours): Vital Signs Pulse Resp BP Pulse Ox 10/17/17 10:00 88 16 133/59 L 99 Intake and Output (Last 8hrs): Intake & Output 10/16/17 10/17/17 10/17/17 22:59 06:59 14:59 Intake Total 1140 4 550 Output Total 600 400 Balance 540 -396 550 Intake: IV 10 4 Intake, Piggyback 350 350 Oral 780 0 200 Output: Chest Tube Drainage 0 Left Posterior Chest 0 Urine 600 400 Urine, Voided 600 400 Other: # Voids Urine, Voided 1 1 - Physical Exam Head: Positive for: Atraumatic, Normocephalic Pupils: Positive for: PERRL Extroacular Muscles: Positive for: EOMI Conjunctiva: Positive for: Normal. Negative for: Icteric Mouth: Positive for: Moist Mucous Membranes Nose (External): Positive for: Atraumatic. Negative for: Abrasion Neck: Positive for: Normal Range of Motion, Trachea Midline Respiratory/Chest: Positive for: Good Air Exchange, Decreased Breath Sounds, Other (left anterior and posterior chest tube in place, draining serosanguineous fluids.). Negative for: Respiratory Distress, Accessory Muscle Use, Rales Cardiovascular: Positive for: Irregular Rhythm, Peripheal Pulses Present. Negative for: Murmurs, Normal S1, S2 Abdomen: Positive for: Normal Bowel Sounds. Negative for: Tenderness, Distention Upper Extremity: Positive for: Normal Inspection. Negative for: Edema Lower Extremity: Positive for: Normal Inspection, NORMAL PULSES. Negative for: Edema, CALF TENDERNESS Neurological: Positive for: Speech Normal, Motor Func Grossly Intact, Normal Sensory Function Skin: Positive for: Warm, Normal Color. Negative for: Rashes Psychiatric: Positive for: Alert, Oriented x 3 - Medications Active Medications: Active Medications Generic Name Dose Route Start Last Admin Trade Name Freq PRN Reason Stop Dose Admin Albuterol/Ipratropium 3 ml 10/08/17 12:00 10/17/17 11:19 Duoneb 3 Mg/0.5 Mg (3 Ml) Ud INH 3 ml RQID ULISES Administration Atorvastatin Calcium 40 mg 10/07/17 21:00 10/16/17 21:34 Lipitor PO 40 mg DAILY@2100 ULISES Administration Dextrose 0 ml 10/07/17 19:49 Dextrose 50% Inj IV STAT PRN Hypoglycemia Protocol Protocol Dextrose 0 gm 10/07/17 19:49 Glutose 15 PO ONCE PRN Hypoglycemia Protocol Protocol Enoxaparin Sodium 70 mg 10/12/17 21:00 10/17/17 08:16 Lovenox SC 70 mg Q12 ULISES Administration Protocol Famotidine 20 mg 10/08/17 13:15 10/17/17 08:16 Pepcid PO 20 mg DAILY [facility]ISES Administration Finasteride 5 mg 10/08/17 09:00 10/17/17 08:15 Proscar PO 5 mg DAILY [facility]ISES Administration Gabapentin 300 mg 10/07/17 22:00 10/16/17 21:34 Neurontin PO 300 mg HS [facility]ISES Administration Glucagon 0 mg 10/07/17 19:49 Glucagen Diagnostic Kit IM STAT PRN Hypoglycemia Protocol Protocol Hydrochlorothiazide 12.5 mg 10/08/17 09:00 10/08/17 14:04 Microzide PO Not Given DAILY ULISES Meropenem 1 gm/ Sodium 100 mls @ 100 mls/hr 10/09/17 21:00 10/17/17 08:11 Chloride IVPB 100 mls/hr Q12 ULISES Administration Protocol Vancomycin HCl 750 mg/ Sodium 250 mls @ 166.667 mls/hr 10/10/17 21:00 10:00 Chloride IVPB 166.667 mls/hr Q12 ULISES Administration Protocol Insulin Detemir 10 units 10/07/17 22:00 10/16/17 21:41 Levemir SC 10 units HS [facility] Administration Insulin Human Regular 0 units 10/11/17 13:17 10/17/17 11:56 Humulin R SC Not Given ACHS [facility] Protocol Levalbuterol HCl 0.63 mg 10/08/17 09:07 10/08/17 13:00 Xopenex INH 0.63 mg RQ4 PRN Administration Shortness of Breath Losartan Potassium 50 mg 10/08/17 09:00 10/17/17 08:15 Cozaar PO 50 mg DAILY [facility]ISES Administration Morphine Sulfate 2 mg 10/10/17 09:12 10/17/17 10:41 Morphine IVP 2 mg Q4 PRN Administration Pain, moderate (4-7) Morphine Sulfate 4 mg 10/10/17 16:50 10/16/17 20:06 Morphine IVP 4 mg Q4 PRN Administration Pain, severe (8-10) Ondansetron HCl 4 mg 10/09/17 15:01 Zofran Inj IVP Q6 PRN Nausea/Vomiting Oxycodone HCl 5 mg 10/09/17 16:27 10/15/17 07:58 Oxycodone Immediate Release Tab PO 5 mg Q6 PRN Administration Pain, Mild (1-3) Repaglinide 1 mg 10/12/17 16:30 10/17/17 12:01 Prandin PO 1 mg TIDAC [facility] Administration Senna/Docusate Sodium 2 tab 10/10/17 22:00 10/16/17 21:46 Senokot S 50 Mg-8.6 Mg PO Not Given HS [facility] - Patient Studies Lab Studies: Microbiology Studies 10/16/17 12:23 Blood Culture - Preliminary Blood-Venous NO GROWTH AFTER 24 HOURS 10/16/17 12:23 Blood Culture - Preliminary Blood-Venous NO GROWTH AFTER 24 HOURS 10/13/17 19:56 Blood Culture - Preliminary Blood-Venous NO GROWTH AFTER 3 DAYS 10/13/17 19:46 Blood Culture - Preliminary Blood-Venous NO GROWTH AFTER 3 DAYS Lab Studies 10/17/17 10/17/17 10/17/17 Range/Units 11:37 05:46 04:55 WBC (4.8-10.8) K/uL RBC (4.40-5.90) Mil/uL Hgb (12.0-18.0) g/dL Hct (35.0-51.0) % MCV (80.0-94.0) fl MCH (27.0-31.0) pg MCHC (33.0-37.0) g/dL RDW (11.5-14.5) % Plt Count (130-400) K/uL Sodium 137 (132-148) mmol/l Potassium 4.3 (3.6-5.0) MMOL/L Chloride 99 (98-107) mmol/L Carbon Dioxide 31 H (22-30) mmol/L Anion Gap 11 (10-20) BUN 14 (9-20) mg/dl Creatinine 0.7 L (0.8-1.5) mg/dl Est GFR ( Amer) > 60 Est GFR (Non-Af Amer) > 60 POC Glucose (mg/dL) 134 H (65-110) mg/dL Random Glucose 87 (75-110) mg/dL Calcium 9.1 (8.4-10.2) mg/dL Vancomycin Trough 16.0 H (5.0-10.0) ug/mL 10/17/17 10/17/17 10/16/17 Range/Units 04:48 04:00 20:17 WBC 8.8 (4.8-10.8) K/uL RBC 3.99 L (4.40-5.90) Mil/uL Hgb 12.6 (12.0-18.0) g/dL Hct 36.7 (35.0-51.0) % MCV 92.1 (80.0-94.0) fl MCH 31.6 H (27.0-31.0) pg MCHC 34.4 (33.0-37.0) g/dL RDW 13.6 (11.5-14.5) % Plt Count 279 (130-400) K/uL Sodium (132-148) mmol/l Potassium (3.6-5.0) MMOL/L Chloride (98-107) mmol/L Carbon Dioxide (22-30) mmol/L Anion Gap (10-20) BUN (9-20) mg/dl Creatinine (0.8-1.5) mg/dl Est GFR ( Amer) Est GFR (Non-Af Amer) POC Glucose (mg/dL) 80 94 (65-110) mg/dL Random Glucose (75-110) mg/dL Calcium (8.4-10.2) mg/dL Vancomycin Trough (5.0-10.0) ug/mL 10/16/17 10/16/17 10/16/17 Range/Units 16:21 10:50 05:26 WBC (4.8-10.8) K/uL RBC (4.40-5.90) Mil/uL Hgb (12.0-18.0) g/dL Hct (35.0-51.0) % MCV (80.0-94.0) fl MCH (27.0-31.0) pg MCHC (33.0-37.0) g/dL RDW (11.5-14.5) % Plt Count (130-400) K/uL Sodium (132-148) mmol/l Potassium (3.6-5.0) MMOL/L Chloride (98-107) mmol/L Carbon Dioxide (22-30) mmol/L Anion Gap (10-20) BUN (9-20) mg/dl Creatinine (0.8-1.5) mg/dl Est GFR ( Amer) Est GFR (Non-Af Amer) POC Glucose (mg/dL) 126 H 101 218 H (65-110) mg/dL Random Glucose (75-110) mg/dL Calcium (8.4-10.2) mg/dL Vancomycin Trough (5.0-10.0) ug/mL 10/16/17 10/15/17 10/15/17 Range/Units 05:04 20:34 16:29 WBC (4.8-10.8) K/uL RBC (4.40-5.90) Mil/uL Hgb (12.0-18.0) g/dL Hct (35.0-51.0) % MCV (80.0-94.0) fl MCH (27.0-31.0) pg MCHC (33.0-37.0) g/dL RDW (11.5-14.5) % Plt Count (130-400) K/uL Sodium (132-148) mmol/l Potassium (3.6-5.0) MMOL/L Chloride (98-107) mmol/L Carbon Dioxide (22-30) mmol/L Anion Gap (10-20) BUN (9-20) mg/dl Creatinine (0.8-1.5) mg/dl Est GFR ( Amer) Est GFR (Non-Af Amer) POC Glucose (mg/dL) 57 L 117 H 122 H (65-110) mg/dL Random Glucose (75-110) mg/dL Calcium (8.4-10.2) mg/dL Vancomycin Trough (5.0-10.0) ug/mL 10/15/17 10/15/17 Range/Units 11:32 05:21 WBC (4.8-10.8) K/uL RBC (4.40-5.90) Mil/uL Hgb (12.0-18.0) g/dL Hct (35.0-51.0) % MCV (80.0-94.0) fl MCH (27.0-31.0) pg MCHC (33.0-37.0) g/dL RDW (11.5-14.5) % Plt Count (130-400) K/uL Sodium (132-148) mmol/l Potassium (3.6-5.0) MMOL/L Chloride (98-107) mmol/L Carbon Dioxide (22-30) mmol/L Anion Gap (10-20) BUN (9-20) mg/dl Creatinine (0.8-1.5) mg/dl Est GFR ( Amer) Est GFR (Non-Af Amer) POC Glucose (mg/dL) 137 H 96 (65-110) mg/dL Random Glucose (75-110) mg/dL Calcium (8.4-10.2) mg/dL Vancomycin Trough (5.0-10.0) ug/mL Laboratory Results - last 24 hr 10/15/17 10/15/17 10/15/17 05:21 11:32 16:29 WBC RBC Hgb Hct MCV MCH MCHC RDW Plt Count Sodium Potassium Chloride Carbon Dioxide Anion Gap BUN Creatinine Est GFR ( Amer) Est GFR (Non-Af Amer) POC Glucose (mg/dL) 96 137 H 122 H Random Glucose Calcium Vancomycin Trough 10/15/17 10/16/17 10/16/17 20:34 05:04 05:26 WBC RBC Hgb Hct MCV MCH MCHC RDW Plt Count Sodium Potassium Chloride Carbon Dioxide Anion Gap BUN Creatinine Est GFR ( Amer) Est GFR (Non-Af Amer) POC Glucose (mg/dL) 117 H 57 L 218 H Random Glucose Calcium Vancomycin Trough 10/16/17 10/16/17 10/16/17 10:50 16:21 20:17 WBC RBC Hgb Hct MCV MCH MCHC RDW Plt Count Sodium Potassium Chloride Carbon Dioxide Anion Gap BUN Creatinine Est GFR ( Amer) Est GFR (Non-Af Amer) POC Glucose (mg/dL) 101 126 H 94 Random Glucose Calcium Vancomycin Trough 10/17/17 10/17/17 10/17/17 04:00 04:48 04:55 WBC 8.8 RBC 3.99 L Hgb 12.6 Hct 36.7 MCV 92.1 MCH 31.6 H MCHC 34.4 RDW 13.6 Plt Count 279 Sodium Potassium Chloride Carbon Dioxide Anion Gap BUN Creatinine Est GFR ( Amer) Est GFR (Non-Af Amer) POC Glucose (mg/dL) 80 Random Glucose Calcium Vancomycin Trough 16.0 H 10/17/17 10/17/17 05:46 11:37 WBC RBC Hgb Hct MCV MCH MCHC RDW Plt Count Sodium 137 Potassium 4.3 Chloride 99 Carbon Dioxide 31 H Anion Gap 11 BUN 14 Creatinine 0.7 L Est GFR ( Amer) > 60 Est GFR (Non-Af Amer) > 60 POC Glucose (mg/dL) 134 H Random Glucose 87 Calcium 9.1 Vancomycin Trough Fingerstick Blood Sugar Results: 134 Review of Systems - Constitutional Constitutional: absent: Fever, Chills, Sweats, Weakness, Malaise - Cardiovascular Cardiovascular: absent: Chest Pain, Chest Pain at Rest, Chest Pain with Activity , Claudication, Diaphoresis - Respiratory Respiratory: absent: Cough, Dyspnea, Hemoptysis, Dyspnea on Exertion, Wheezing, Snoring, Stridor Critical Care Progress Note - Extremities/Vascular Does the Patient have a Central Venous Catheter?: No Does the Patient need a Central Venous Catheter?: No Does the Patient have a Valenzuela Catheter?: No Does the Patient need a Valenzuela Catheter?: No - Nutrition Nutrition: Nutrition Category Date Time Status Heart Healthy Diet [DIET] Diets 10/09/17 Lunch Active Assessment/Plan (1) Pneumothorax Current Visit: Yes Status: Acute Priority: High Comment: B/L chest tube removed Chest CT scan repeat with small B/l pleural efffusion Stable respiratory status, Adequate saturaion on RA (2) Elevated troponin I level Current Visit: Yes Status: Acute Priority: Medium (3) Pneumonia Current Visit: Yes Status: Acute Priority: Medium (4) COPD (chronic obstructive pulmonary disease) Current Visit: Yes Status: Chronic Priority: High Comment: Stable, no wheezing Albuterol/Ipratropium (Duoneb) INH RQID ULISES (5) Pulmonary emphysema Current Visit: Yes Status: Chronic Priority: High (6) Pulmonary nodules/lesions, multiple Current Visit: Yes Status: Chronic Priority: High (7) Type 2 diabetes mellitus Current Visit: Yes Status: Chronic Priority: Medium (8) Atrial fibrillation Current Visit: Yes Status: Chronic Priority: High
[2017-10-17 16:16] VITALS: PULSE 86
[2017-10-17 16:42] VITALS: BP 126/60; RESP 20; TEMP 98.2; O2SAT 98
--- NOTE | 2017-10-17 18:23 | CP.PCM.DIS ---
Provider - Provider Date of Admission: 10/07/17 18:01 Attending physician: Susan Galvez MD Consults: Cardio: Dr. Last Thoracic surgery: Dr. Justice Pulm: Dr. Hameed ID: Dr. Luna Critical care: Dr. Willis Time Spent in preparation of Discharge (in minutes): 35 Diagnosis - Discharge Diagnosis (1) Pneumothorax Status: Resolved Priority: Low (2) Pneumonia Status: Acute Priority: Medium (3) Atrial fibrillation Status: Chronic Priority: Low (4) COPD (chronic obstructive pulmonary disease) Status: Chronic Priority: Medium (5) Type 2 diabetes mellitus Status: Chronic Priority: Low Hospital Course - Lab Results Lab Results: Micro Results 10/16/17 12:23 Blood-Venous Blood Culture - Preliminary NO GROWTH AFTER 24 HOURS 10/16/17 12:23 Blood-Venous Blood Culture - Preliminary NO GROWTH AFTER 24 HOURS 10/13/17 19:56 Blood-Venous Blood Culture - Preliminary NO GROWTH AFTER 3 DAYS 10/13/17 19:46 Blood-Venous Blood Culture - Preliminary NO GROWTH AFTER 3 DAYS 10/09/17 18:00 Blood-Venous Blood Culture - Final Bifidobacterium Species 10/09/17 18:00 Blood-Venous Gram Stain - Final 10/10/17 16:30 Pleural Fluid Gram Stain - Final 10/10/17 16:30 Pleural Fluid Body Fluid Culture - Final Staphylococcus Sp Coag Neg 10/10/17 10:40 Blood-Venous Blood Culture - Final NO GROWTH AFTER 5 DAYS 10/10/17 10:40 Blood-Venous Gram Stain - Final TEST NOT PERFORMED 10/10/17 19:26 Urine Urine Culture - Final No Growth (<1,000 CFU/ML) 10/07/17 16:35 Blood-Venous Blood Culture - Final NO GROWTH AFTER 5 DAYS 10/07/17 16:35 Blood-Venous Gram Stain - Final TEST NOT PERFORMED 10/09/17 15:00 Other: Please Indicate Gram Stain - Final 10/09/17 15:00 Other: Please Indicate Wound Culture - Final No growth. 10/09/17 15:00 Other: Please Indicate Gram Stain - Final 10/09/17 15:00 Other: Please Indicate Wound Culture - Final No growth. 10/07/17 16:35 Blood-Venous S.aureus & Coag-Neg Staph PNA FISH - Final 10/07/17 16:35 Blood-Venous Blood Culture - Final Coagulase Neg Staphylococcus 10/07/17 16:35 Blood-Venous Gram Stain - Final 10/10/17 11:17 Sputum Gram Stain - Final 10/10/17 11:17 Sputum Sputum Culture - Final Yeast Species Most Recent Lab Values WBC 8.8 K/uL (4.8-10.8) 10/17/17 04:00 RBC 3.99 Mil/uL (4.40-5.90) L 10/17/17 04:00 Hgb 12.6 g/dL (12.0-18.0) 10/17/17 04:00 Hct 36.7 % (35.0-51.0) 10/17/17 04:00 MCV 92.1 fl (80.0-94.0) 10/17/17 04:00 MCH 31.6 pg (27.0-31.0) H 10/17/17 04:00 MCHC 34.4 g/dL (33.0-37.0) 10/17/17 04:00 RDW 13.6 % (11.5-14.5) 10/17/17 04:00 Plt Count 279 K/uL (130-400) 10/17/17 04:00 MPV 7.6 fl (7.2-11.7) 10/12/17 04:50 Neut % (Auto) 67.2 % (50.0-75.0) 10/12/17 04:50 Lymph % (Auto) 17.3 % (20.0-40.0) L 10/12/17 04:50 Hendricks % (Auto) 10.3 % (0.0-10.0) H 10/12/17 04:50 Eos % (Auto) 4.8 % (0.0-4.0) H 10/12/17 04:50 Baso % (Auto) 0.4 % (0.0-2.0) 10/12/17 04:50 Neut # (Auto) 5.4 K/uL (1.8-7.0) 10/12/17 04:50 Lymph # (Auto) 1.4 K/uL (1.0-4.3) 10/12/17 04:50 Hendricks # (Auto) 0.8 K/uL (0.0-0.8) 10/12/17 04:50 Eos # (Auto) 0.4 K/uL (0.0-0.7) 10/12/17 04:50 Baso # (Auto) 0.0 K/uL (0.0-0.2) 10/12/17 04:50 Neutrophils % (Manual) 91 % (42-75) H 10/08/17 04:25 Lymphocytes % (Manual) 8 % (20-50) L 10/08/17 04:25 Monocytes % (Manual) 1 % (0-10) 10/08/17 04:25 Platelet Estimate Normal (NORMAL) 10/08/17 04:25 PT 13.3 Seconds (9.8-13.1) H 10/07/17 16:35 INR 1.2 10/07/17 16:35 APTT 34.1 Seconds (25.6-37.1) 10/07/17 16:35 pCO2 44 mm/Hg (35-45) 10/07/17 22:37 pO2 86 mm/Hg (80-100) 10/07/17 22:37 HCO3 23.7 mmol/L (21-28) 10/07/17 22:37 ABG pH 7.35 (7.35-7.45) 10/07/17 22:37 ABG Total CO2 25.7 mmol/L (22-28) 10/07/17 22:37 ABG O2 Saturation 99.9 % (95-98) H 10/07/17 22:37 ABG O2 Content 19.7 ML/dL (15-23) 10/07/17 22:37 ABG Base Excess -1.5 mmol/L (-2.0-3.0) 10/07/17 22:37 ABG Hemoglobin 14.8 g/dL (11.7-17.4) 10/07/17 22:37 ABG Carboxyhemoglobin 3.1 % (0.5-1.5) H 10/07/17 22:37 POC ABG HHb (Measured) 0.1 % (0.0-5.0) 10/07/17 22:37 ABG Methemoglobin 2.5 % (0.0-3.0) 10/07/17 22:37 ABG O2 Capacity 19.7 mL/dL (16-24) 10/07/17 22:37 Scout Test Yes 10/07/17 22:37 ABG Potassium 4.4 mmol/L (3.6-5.2) 10/07/17 16:32 A-a O2 Difference 59.0 mm/Hg 10/07/17 22:37 Hgb O2 Saturation 94.3 % (95.0-98.0) L 10/07/17 22:37 Sodium 134.0 mmol/L (132-148) 10/07/17 16:32 Chloride 98.0 mmol/L (98-107) 10/07/17 16:32 Glucose 217 mg/dL (75-110) H 10/07/17 16:32 Lactate 2.6 mmol/L (0.7-2.1) H 10/07/17 16:32 Vent Mode 2lnc 10/07/17 22:37 FiO2 28.0 % 10/07/17 22:37 Crit Value Called To margot Ott md 10/07/17 16:32 Crit Value Called By Briana malloy 10/07/17 16:32 Crit Value Read Back Y 10/07/17 16:32 Blood Gas Notified Time 1641 10/07/17 16:32 Sodium 137 mmol/l (132-148) 10/17/17 05:46 Potassium 4.3 MMOL/L (3.6-5.0) 10/17/17 05:46 Chloride 99 mmol/L (98-107) 10/17/17 05:46 Carbon Dioxide 31 mmol/L (22-30) H 10/17/17 05:46 Anion Gap 11 (10-20) 10/17/17 05:46 BUN 14 mg/dl (9-20) 10/17/17 05:46 Creatinine 0.7 mg/dl (0.8-1.5) L 10/17/17 05:46 Est GFR ( Amer) > 60 10/17/17 05:46 Est GFR (Non-Af Amer) > 60 10/17/17 05:46 POC Glucose (mg/dL) 69 mg/dL (65-110) 10/17/17 16:53 Random Glucose 87 mg/dL (75-110) 10/17/17 05:46 Calcium 9.1 mg/dL (8.4-10.2) 10/17/17 05:46 Phosphorus 5.7 mg/dl (2.5-4.5) H 10/07/17 16:35 Magnesium 1.7 MG/DL (1.6-2.3) 10/07/17 16:35 Total Bilirubin 0.9 mg/dl (0.2-1.3) 10/15/17 05:52 AST 55 U/L (17-59) 10/15/17 05:52 ALT 52 U/L (21-72) 10/15/17 05:52 Alkaline Phosphatase 56 U/L (38-126) 10/15/17 05:52 Troponin I 0.7970 ng/mL (0.00-0.120) H* 10/08/17 08:45 NT-Pro-B Natriuret Pep 4320 pg/ml (0-900) H 10/07/17 16:35 Total Protein 5.7 G/DL (6.3-8.2) L 10/15/17 05:52 Albumin 3.1 g/dL (3.5-5.0) L 10/15/17 05:52 Globulin 2.6 gm/dL (2.2-3.9) 10/15/17 05:52 Albumin/Globulin Ratio 1.2 (1.0-2.1) 10/15/17 05:52 Arterial Blood Potassium 4.4 mmol/L (3.6-5.2) 10/07/17 16:32 Urine Color Yellow (YELLOW) 10/12/17 06:32 Urine Clarity Slighty-cloudy (Clear) 10/12/17 06:32 Urine pH 5.0 (5.0-8.0) 10/12/17 06:32 Ur Specific [place] 1.024 (1.003-1.030) 10/12/17 06:32 Urine Protein Negative mg/dL (NEGATIVE) 10/12/17 06:32 Urine Glucose (UA) 150 mg/dL (Normal) 10/12/17 06:32 Urine Ketones Negative mg/dL (NEGATIVE) 10/12/17 06:32 Urine Blood Negative (NEGATIVE) 10/12/17 06:32 Urine Nitrate Negative (NEGATIVE) 10/12/17 06:32 Urine Bilirubin Negative (NEGATIVE) 10/12/17 06:32 Urine Urobilinogen 0.2-1.0 mg/dL (0.2-1.0) 10/12/17 06:32 Ur Leukocyte Esterase Neg [place]/uL (Negative) 10/12/17 06:32 Urine RBC (Auto) 1 /hpf (0-3) 10/12/17 06:32 Urine Microscopic WBC 2 /hpf (0-5) 10/12/17 06:32 Ur Squamous Epith Cells 1 /hpf (0-5) 10/10/17 19:26 Fluid Source Pleural 10/10/17 14:30 Fluid Appearance Bloody (CLEAR) 10/10/17 14:30 Fluid WBC 465.0 /mm3 (0.0-300.0) H 10/10/17 14:30 Fluid RBC 66197.0 /mm3 (0.0-0.0) H 10/10/17 14:30 Fluid Tot Cell Count 100 (0-0) H 10/10/17 14:30 Fluid Neutrophils 89.0 % (0-0) H 10/10/17 14:30 Fluid Lymphocytes 5.0 % (0-0) H 10/10/17 14:30 Fld Monocyte/Macrophag 6 % (0-0) H 10/10/17 14:30 Fluid Glucose 114 mg/dL (NONE ESTABLISHED) 10/10/17 16:30 Fluid Total Protein 2.6 g/dL (NONE ESTABLISHED) 10/10/17 16:30 Fluid LDH 3842 IU (NONE ESTABLISHED) 10/10/17 16:30 Fluid Comment Turbid 10/10/17 14:30 Vancomycin Trough 16.0 ug/mL (5.0-10.0) H 10/17/17 04:55 Ur L.pneumophila Ag Negative (NEGATIVE) 10/09/17 23:00 Mycoplasma pneumon IgM Negative (NEGATIVE) 10/09/17 18:00 Blood Type A POSITIVE 10/07/17 16:35 Antibody Screen Negative 10/07/17 16:35 Crossmatch See Detail 10/07/17 16:35 BBK History Checked Patient has bt 10/07/17 16:35 - Hospital Course Hospital Course: 76 year old male w/ hx of HTN, COPD, DM2, atrial fibrillation who was admitted for left pneumothorax which developed s/p lung biopsy at [facility] which required left anterior and posterior chest tubes placements for 8 days. During this hospital admission, patient was treated for organized pneumonia w/ IV vanc and meropenem, COPD was controlled w/ nebulized treatments and NC O2 high flow. Patient was started on Lovenox 70 mg SC Q12, echo r/o CHF/vegetations. DM rx adjusted as patient had healthier diet in house, and blood glucose was monitored. Patient had elevated troponins likely 2/2 myocyte injury 2/2 pneumothorax. Patient's improvement was monitored by multiple CTs and unremarkable CXR, chest tubes were removed and patient transferred to TCU for further PT/OT. Patient advised to follow up w/ [facility] regarding pleural effusions and lung nodule. Patient's bx showed organized pneumonia; Dr. Hameed does not recommend steroids at this time. Medications: Albuterol/Ipratropium (Duoneb 3 Mg/0.5 Mg (3 Ml) Ud) 3 ml INH RQID [facility]ISES Atorvastatin Calcium (Lipitor) 40 mg PO DAILY@2100 [facility] Enoxaparin Sodium (Lovenox) 70 mg SC Q12 [facility] PRN Reason: Protocol Last Admin: 10/16/17 08:47 Dose: 70 mg Famotidine (Pepcid) 20 mg PO DAILY [facility] Last Admin: 10/16/17 08:46 Dose: 20 mg Finasteride (Proscar) 5 mg PO DAILY [facility] Last Admin: 10/16/17 08:45 Dose: 5 mg Gabapentin (Neurontin) 300 mg PO HS [facility] Last Admin: 10/15/17 21:02 Dose: 300 mg Hydrochlorothiazide (Microzide) 12.5 mg PO DAILY ULISES (Hold in TCU, cont at home) Meropenem 1 gm/ Sodium (Chloride) 100 mls @ 100 mls/hr IVPB Q12 [facility] (will cont. in TCU pending ID recs) Vancomycin HCl 750 mg/ Sodium (Chloride) 250 mls @ 166.667 mls/hr IVPB Q12 [facility] (will cont. in TCU pending ID recs) Levalbuterol HCl (Xopenex) 0.63 mg INH RQ4 PRN Ondansetron HCl (Zofran Inj) 4 mg IVP Q6 PRN Repaglinide (Prandin) 1 mg PO TIDAC ULISES Senna/Docusate Sodium (Senokot S 50 Mg-8.6 Mg) 2 tab PO HS [facility] - Date & Time of H&P Date of H&P: 10/07/17 Time of H&P: 19:12 Discharge Exam - Head Exam Head Exam: ATRAUMATIC, NORMAL INSPECTION, NORMOCEPHALIC - Eye Exam Eye Exam: Normal appearance - ENT Exam ENT Exam: Mucous Membranes Moist Discharge Plan - Follow Up Plan Condition: CRITICAL Disposition: REHAB FACILITY/REHAB UNIT Instructions: Pneumothorax (Collapsed Lung) (DC), Preventing Falls, Exacerbation of COPD (DC) Additional Instructions: Patient will be followed in TCU. Will confirm follow up appointments at [facility] and w/ Dr. Galvez after completion of rehab in TCU. In house pulmonlogist, Dr. Hameed , will follow patient in TCU. Will resume Coumadin 10/18/17 Referrals: Andrew Last MD [Staff Provider] - Susan Galvez MD [Family Provider] -
== END 2017-10-17 18:12 | DRG 200 ==
LOC: H.ER 16:17 → H.ERHOLD 18:01 → H.ICU/CCU 10-08 10:13
PROVIDERS: ADMIT Family Medicine; ATTEND Family Medicine
PROC: 0W9B30Z Drainage of Left Pleural Cavity with Drainage Device, Percutaneous Approach (ICD-10-PCS; 2017-10-07)
PROC: 0WPB00Z Removal of Drainage Device from Left Pleural Cavity, Open Approach (ICD-10-PCS; 2017-10-09)
PROC: 0W9B00Z Drainage of Left Pleural Cavity with Drainage Device, Open Approach (ICD-10-PCS; principal; 2017-10-09 13:00)
DX: J95.811 Postprocedural pneumothorax (principal); J94.2 Hemothorax; J98.11 Atelectasis; E87.2 Acidosis; J44.1 Chronic obstructive pulmonary disease with (acute) exacerbation; J90 Pleural effusion, not elsewhere classified; J44.0 Chronic obstructive pulmonary disease with (acute) lower respiratory infection; T81.82XA Emphysema (subcutaneous) resulting from a procedure, initial encounter; J95.812 Postprocedural air leak; J84.89 Other specified interstitial pulmonary diseases; Y83.8 Other surgical procedures as the cause of abnormal reaction of the patient, or of later complication, without mention of misadventure at the time of the procedure; I48.2 Chronic atrial fibrillation; N18.9 Chronic kidney disease, unspecified; I12.9 Hypertensive chronic kidney disease with stage 1 through stage 4 chronic kidney disease, or unspecified chronic kidney disease; R91.1 Solitary pulmonary nodule; E11.65 Type 2 diabetes mellitus with hyperglycemia; E11.22 Type 2 diabetes mellitus with diabetic chronic kidney disease; D72.828 Other elevated white blood cell count; E78.5 Hyperlipidemia, unspecified; E78.00 Pure hypercholesterolemia, unspecified; F41.9 Anxiety disorder, unspecified; Z85.118 Personal history of other malignant neoplasm of bronchus and lung; Z87.01 Personal history of pneumonia (recurrent); Z99.81 Dependence on supplemental oxygen; Z79.01 Long term (current) use of anticoagulants; Z79.4 Long term (current) use of insulin; Z87.891 Personal history of nicotine dependence

== ENCOUNTER 2017-10-17 16:52 | Inpatient (IN) | payer OTHER, MEDICARE ==
[2017-10-17 17:11] VITALS: BMI 23.2
[2017-10-17] MEDS ORDERED: Albuterol HFA 90 mcg/actuation (8 g) IH PRN (18:29)
[2017-10-17] MEDS ORDERED: Dextrose 50% SYRINGE Inj (50 ml) IV PRN (18:35)
[2017-10-17] MEDS ORDERED: Glucagon Recombinant 1 mg Inj IM PRN (18:35)
[2017-10-17] MEDS ORDERED: Dextrose 50% SYRINGE Inj (50 ml) IVP PRN (18:35)
[2017-10-17] MEDS ORDERED: Oxycodone/Acetaminophen 5/325 mg Tab PO PRN (18:53)
[2017-10-17] MEDS ORDERED: Meropenem 1 GM in Sodium Chloride 0.9% 100 ML IVPB SCH (21:00)
[2017-10-17] MEDS ORDERED: [UNRECOGNIZED DRUG - OTHER] IV SCH (21:00)
[2017-10-17] MEDS ORDERED: SOD CHLORIDE IV SCH (21:00)
[2017-10-17] MEDS ORDERED: VANCOMYCIN IV SCH (21:00)
[2017-10-17] MEDS: Insulin Regular 100 units/ml SC SCH (21:45)
[2017-10-17] MEDS: Oxycodone/Acetaminophen 5/325 mg Tab PO PRN (21:49)
[2017-10-17] MEDS: Enoxaparin 80 mg Syringe SC SCH (21:53)
[2017-10-17] MEDS: Insulin Detemir 100 Units/ml Inj SC SCH (21:54)
[2017-10-17] MEDS: Docusate-Senna 50 mg-8.6 mg Tab PO SCH (21:56)
[2017-10-18] MEDS: Meropenem 1 GM in Sodium Chloride 0.9% 100 ML IVPB SCH ×3 (05:33→21:01)
[2017-10-18] MEDS: Insulin Regular 100 units/ml SC SCH ×4 (06:51→23:14)
[2017-10-18] MEDS: Enoxaparin 80 mg Syringe SC SCH ×2 (08:25→20:49)
--- NOTE | 2017-10-18 11:27 | CP.PCM.CON ---
History of Present Illness - History of Present Illness History of Present Illness: ID Note- 76 year old male with multiple medical conditions including COPD, A.Fib, DM II s /p lung biopsy later developed pneumothorax s/p chest tube , not improved and had developed left sided chest subcutaneous emphysema s/p subsequent 2 chest tubes placed by CT surgeon more than a week ago and subcutaneous emphysema and ptx resolved and both CT tubes were removed yesterday and pt. doing much better and was transferred to TCU to get PT and rehab and complete Duong bx for bacteremia ( pos blood cx ) and pos pleural fluid cx and empiric abx for coverage of HAP sinc ben has had multiple recent hospitalizations and invasive procedures. pt. states he walked to the bathroom today and he feels slightly sob but denies any cough, denies any fever or chills. sttes had good BM today and slept well last night. Review of Systems - Review of Systems Review of Systems: as stated in HPI Past Patient History - Past Medical History & Family History Past Medical History?: Yes - Past Social History Smoking Status: Former Smoker Home Situation {Lives}: With Family - CARDIAC Hx Atrial Fibrillation: Yes Hx Hypercholesterolemia: Yes Hx Hypertension: Yes - PULMONARY Hx Chronic Obstructive Pulmonary Disease (COPD): Yes Hx Emphysema: Yes Hx Pneumonia: Yes - NEUROLOGICAL Hx Neurological Disorder: No - HEENT Hx HEENT Problems: No - RENAL Hx Chronic Kidney Disease: Yes - ENDOCRINE/METABOLIC Hx Endocrine Disorders: Yes Hx Diabetes Mellitus Type 2: Yes - HEMATOLOGICAL/ONCOLOGICAL Hx Blood Disorders: No - INTEGUMENTARY Hx Dermatological Problems: No - MUSCULOSKELETAL/RHEUMATOLOGICAL Hx Musculoskeletal Disorders: No Hx Falls: No - GASTROINTESTINAL Hx Gastrointestinal Disorders: No - GENITOURINARY/GYNECOLOGICAL Hx Genitourinary Disorders: Yes - PSYCHIATRIC Hx Psychophysiologic Disorder: No Hx Substance Use: No - SURGICAL HISTORY Hx Surgeries: Yes Other/Comment: LUNG SX . BACK SX. s/p chest tube. lung bx - ANESTHESIA Hx Anesthesia: Yes Hx Anesthesia Reactions: No Hx Malignant Hyperthermia: No Meds Allergies/Adverse Reactions: Allergies Allergy/AdvReac Type Severity Reaction Status Date / Time hydromorphone Allergy Mild RASH Verified 10/17/17 17:10 - Medications Medications: Current Medications Acetaminophen (Tylenol 325mg Tab) 650 mg PO Q4 PRN PRN Reason: Pain, Mild (1-3) Atorvastatin Calcium (Lipitor) 40 mg PO DAILY@2100 [facility] Last Admin: 10/17/17 21:53 Dose: 40 mg Dextrose (Dextrose 50% Inj) 0 ml IV STAT PRN; Protocol PRN Reason: Hypoglycemia Protocol Dextrose (Dextrose 50% Inj) 50 ml IVP ONCE PRN PRN Reason: Hypoglycemia Dextrose (Glutose 15) 0 gm PO ONCE PRN; Protocol PRN Reason: Hypoglycemia Protocol Enoxaparin Sodium (Lovenox) 70 mg SC Q12 [facility] PRN Reason: Protocol Last Admin: 10/18/17 08:25 Dose: 70 mg Famotidine (Pepcid) 20 mg PO DAILY [facility] Last Admin: 10/18/17 08:27 Dose: 20 mg Finasteride (Proscar) 5 mg PO DAILY [facility] Last Admin: 10/18/17 08:25 Dose: 5 mg Gabapentin (Neurontin) 300 mg PO HS [facility] Last Admin: 10/17/17 21:55 Dose: 300 mg Glucagon (Glucagen Diagnostic Kit) 0 mg IM STAT PRN; Protocol PRN Reason: Hypoglycemia Protocol Hydrochlorothiazide (Microzide) 12.5 mg PO DAILY [facility] Vancomycin HCl 750 mg/ Sodium (Chloride) 250 mls @ 250 mls/hr IVPB Q12@0000, 1200 [facility] Last Admin: 10/18/17 00:30 Dose: 250 mls/hr Meropenem 1 gm/ Sodium (Chloride) 100 mls @ 100 mls/hr IVPB Q8H [facility] PRN Reason: Protocol Last Admin: 10/18/17 05:33 Dose: 100 mls/hr Insulin Detemir (Levemir) 10 units SC [facility] Last Admin: 10/17/17 21:54 Dose: 10 u Insulin Human Regular (Humulin R) 0 units SC [facility] PRN Reason: Protocol Last Admin: 10/18/17 06:51 Dose: Not Given Levalbuterol HCl (Xopenex) 0.63 mg INH RQ4 PRN PRN Reason: Shortness of Breath Losartan Potassium (Cozaar) 50 mg PO DAILY [facility] Last Admin: 10/18/17 08:27 Dose: 50 mg Morphine Sulfate (Morphine) 2 mg IVP Q6 PRN PRN Reason: Pain, severe (8-10) Ondansetron HCl (Zofran Inj) 4 mg IVP Q6 PRN PRN Reason: Nausea/Vomiting Oxycodone/Acetaminophen (Percocet 5/325 Mg Tab) 1 tab PO Q4 PRN PRN Reason: Pain, moderate (4-7) Stop: 10/20/17 18:53 Last Admin: 10/17/17 21:49 Dose: 1 tab Repaglinide (Prandin) 2 mg PO TID [facility] Last Admin: 10/18/17 08:24 Dose: 2 mg Senna/Docusate Sodium (Senokot S 50 Mg-8.6 Mg) 2 tab PO HS [facility] Last Admin: 10/17/17 21:56 Dose: 2 tab Tiotropium [place] (Spiriva) 18 mcg INH DAILY [facility] Physical Exam - Additional Findings Additional findings: - Constitutional Appears: NAD - Head Exam Head Exam: ATRAUMATIC - Eye Exam Eye Exam: EOMI, PERRL - ENT Exam ENT Exam: Normal Oropharynx - Neck Exam Neck exam: Positive for: Full Rom - Respiratory Exam Additional comments: chest tube shave been removed. no subcutaneous emphysema felt anymore good breath sounds b/l - Cardiovascular Exam Cardiovascular Exam: Tachycardia, +S1, +S2 - GI/Abdominal Exam GI & Abdominal Exam: Normal Bowel Sounds, Soft Additional comments: NT, ND - Extremities Exam Extremities exam: Positive for: normal inspection Additional comments: no edema B/L LE - Neurological Exam Neurological exam: Alert, Oriented x 3 Results - Vital Signs Recent Vital Signs: Last Vital Signs Temp 97.7 F 10/18/17 09:25 Pulse 96 H 10/18/17 09:25 Resp 20 10/18/17 09:25 BP 131/67 10/18/17 09:25 Pulse Ox 99 10/18/17 09:25 - Labs Labs: Laboratory Results - last 24 hr 10/17/17 10/18/17 10/18/17 20:41 06:15 06:57 POC Glucose (mg/dL) 139 H 66 99 10/18/17 11:22 POC Glucose (mg/dL) 71 Microbiology 10/10/17 16:30 Pleural Fluid Gram Stain - Final 10/10/17 16:30 Pleural Fluid Body Fluid Culture - Final Staphylococcus Sp Coag Neg 10/10/17 11:17 Sputum Gram Stain - Final 10/10/17 11:17 Sputum Sputum Culture - Final Yeast Species 10/10/17 10:40 Blood-Venous Blood Culture - Final 10/10/17 10:40 Blood-Venous Gram Stain - Final NO GROWTH AFTER 5 DAYS TEST NOT PERFORMED 10/09/17 18:00 Blood-Venous Blood Culture - Final 10/09/17 18:00 Blood-Venous Gram Stain - Final Bifidobacterium Species 10/09/17 15:00 Other: Please Indicate Gram Stain - Final 10/09/17 15:00 Other: Please Indicate Wound Culture - Final No growth. 10/09/17 15:00 Other: Please Indicate Gram Stain - Final 10/09/17 15:00 Other: Please Indicate Wound Culture - Final No growth. 10/07/17 16:35 Blood-Venous S.aureus & Coag-Neg Staph PNA FISH - Final 10/07/17 16:35 Blood-Venous Gram Stain - Final Coagulase Neg Staphylococcus 10/07/17 16:35 Blood-Venous Blood Culture - Final 10/07/17 16:35 Blood-Venous Gram Stain - Final NO GROWTH AFTER 5 DAYS TEST NOT PERFORMED 10/16/17 12:23 Blood-Venous Blood Culture - Preliminary 10/16/17 12:23 Blood-Venous NO GROWTH AFTER 48 HOURS 10/16/17 12:23 Blood-Venous Blood Culture - Preliminary 10/16/17 12:23 Blood-Venous NO GROWTH AFTER 48 HOURS 10/13/17 19:56 Blood-Venous Blood Culture - Preliminary 10/13/17 19:56 Blood-Venous NO GROWTH AFTER 4 DAYS 10/13/17 19:46 Blood-Venous Blood Culture - Preliminary 10/13/17 19:46 Blood-Venous NO GROWTH AFTER 4 DAYS Assessment & Plan - Assessment and Plan (Free Text) Assessment: A/P- 76 year old male with multiple medical conditions including COPD, A.Fib, DM II s /p lung biopsy later developed pneumothorax s/p chest tuube 4 days ago , not improved and had developed left sided chest subcutaneous emphysema s/p 2 chest tubes ( now removed) s/p chest tube removal yesterday. afebrile leukocytosis resolved. blood cx from 10/07 - one out of 2 bottles reported coag neg staph ( most likely contaminant) repeat blood cx- neg x 1( 10/10/2017) blood cx from 10/09/2017- Bifidobacterium species ( anerobic bottle only)!!! repeat blood cx 10/13/2017 and 10/16/2017- neg x 4 OR cx- no growth pleural fluid cx- coag neg staph mycoplasma IGm- neg Urine legionellla Ag- Neg pleural fluid cx- neg sputum cx- yeast TTE report- no mention of vegetations as per report. repeat chest CT report noted. Plan- the 1 out of 2 blood cx reported coag neg staph after 3 days and only on anaerobic bottle is most likely a contaminant. however since pt. has had multiple procedures continue with IV vanco , day #8 keep trough <20. the blood cx from 10/09/2017 Identified yesterday as Bifidobacterium. Bifidobacterium species could be considered as nonpathogenic bacteria, as these anaerobic, gram-positive rods are part of the physiological oral, vaginal , and intestinal janine. Bacteremia due to Bifidobacterium species has been seen at times with use of probiotics. regardless bifidobacterium species are sensitive to vancomycin . repeat blood cx - neg x 4 advise 6 more days of Iv vancomycin. advise to continue with broad spectrum meropenem abx for nosocomial coverage . day #9 advise 1 more day of IV meropenem. check repeat CXR. Notified nurse to notify his PMD about the slight sob and check cxr . All above d/w patient and his who is at his bedside. Thank you for allowing me to take part in the care of this patient.
--- NOTE | 2017-10-18 12:47 | CP.PCM.HP ---
History of Present Illness - History of Present Illness History of Present Illness: 76 year old male w/ hx of HTN, COPD, DM2, atrial fibrillation transfered from ICU to TCU for PT/OT following hospitalization for left pneumothorax which developed s/p lung biopsy at [facility] which required left anterior and posterior chest tubes placements for 8 days. Pmhx: hypertension, COPD, DM2, A-fib, lung nodule Past surgical hx: left ant./post. chest tube placement. left lung nodule/mass that has been resected in the past (5 years ago) Family hx: grandmother DM2, grandfather [place] Social hx: smoked cig for 10 yrs (age [age]), then smoked tobacco pipe from age [age], 1 beer a week, denies drug use Allergies: hydromorphone Next of kin: [place] [phone] Code status: Full Code PMD: Dr. Galvez Present on Admission - Present on Admission Any Indicators Present on Admission: No History of DVT/PE: No History of Uncontrolled Diabetes: No Urinary Catheter: No Decubitus Ulcer Present: No Review of Systems - Cardiovascular Cardiovascular: absent: Chest Pain, Palpitations, Pedal Edema - Respiratory Respiratory: absent: Cough, Dyspnea - Gastrointestinal Gastrointestinal: absent: Abdominal Pain - Genitourinary Genitourinary: absent: Change in Urinary Stream, Dysuria, Flank Pain - Musculoskeletal Musculoskeletal: absent: Myalgias - Neurological Neurological: absent: Dizziness, Headaches Past Patient History - Past Medical History & Family History Past Medical History?: Yes - Past Social History Smoking Status: Former Smoker - CARDIAC Hx Atrial Fibrillation: Yes Hx Hypercholesterolemia: Yes Hx Hypertension: Yes - PULMONARY Hx Chronic Obstructive Pulmonary Disease (COPD): Yes Hx Emphysema: Yes Hx Pneumonia: Yes - NEUROLOGICAL Hx Neurological Disorder: No - HEENT Hx HEENT Problems: No - RENAL Hx Chronic Kidney Disease: Yes - ENDOCRINE/METABOLIC Hx Endocrine Disorders: Yes Hx Diabetes Mellitus Type 2: Yes - HEMATOLOGICAL/ONCOLOGICAL Hx Blood Disorders: No - INTEGUMENTARY Hx Dermatological Problems: No - MUSCULOSKELETAL/RHEUMATOLOGICAL Hx Musculoskeletal Disorders: No Hx Falls: No - GASTROINTESTINAL Hx Gastrointestinal Disorders: No - GENITOURINARY/GYNECOLOGICAL Hx Genitourinary Disorders: Yes - PSYCHIATRIC Hx Psychophysiologic Disorder: No Hx Substance Use: No - SURGICAL HISTORY Hx Surgeries: Yes Other/Comment: LUNG SX . BACK SX. s/p chest tube. lung bx - ANESTHESIA Hx Anesthesia: Yes Hx Anesthesia Reactions: No Hx Malignant Hyperthermia: No Meds Allergies/Adverse Reactions: Allergies Allergy/AdvReac Type Severity Reaction Status Date / Time hydromorphone Allergy Mild RASH Verified 10/17/17 17:10 Physical Exam - Constitutional Appears: No Acute Distress - Head Exam Head Exam: ATRAUMATIC - Eye Exam Eye Exam: Normal appearance - ENT Exam ENT Exam: Mucous Membranes Moist - Neck Exam Neck exam: Positive for: Normal Inspection - Respiratory Exam Respiratory Exam: Clear to Auscultation Bilateral, NORMAL BREATHING PATTERN - Cardiovascular Exam Cardiovascular Exam: REGULAR RHYTHM, RRR, +S1, +S2 - GI/Abdominal Exam GI & Abdominal Exam: Soft. absent: Distended, Tenderness - Extremities Exam Extremities exam: Positive for: normal inspection. Negative for: pedal edema, tenderness - Back Exam Back exam: absent: CVA tenderness (L), CVA tenderness (R) - Neurological Exam Neurological exam: Alert, Oriented x3 - Psychiatric Exam Psychiatric exam: Normal Affect, Normal Mood - Skin Skin Exam: Dry, Intact, Warm Results - Vital Signs Recent Vital Signs: Last Vital Signs Temp 97.7 F 10/18/17 09:25 Pulse 99 H 10/18/17 10:48 Resp 20 10/18/17 09:25 BP 131/67 10/18/17 09:25 Pulse Ox 98 10/18/17 10:48 - Labs Labs: Laboratory Results - last 24 hr 10/17/17 10/18/17 10/18/17 20:41 06:15 06:57 POC Glucose (mg/dL) 139 H 66 99 10/18/17 10/18/17 11:22 12:02 POC Glucose (mg/dL) 71 91 Assessment & Plan - Assessment and Plan (Free Text) Assessment: 76 year old male w/ hx of HTN, COPD, DM2, atrial fibrillation, left pneumothorax s/p left ant. and post. chest tube placement who was transferred to TCU for PT/OT. Plan: Hx of Blood cultures positive for gram+ cocci -10/07/2017 GPC+ in anaerobic sample, possible contaminant. 10/09 blood culture gram + bacilli -repeat blood cultures no growth -ID consult appreciated; Meropenem 1 gm IV Q12 day #10 and Vancomycin 750 mg Q12 day #9 with trough goal <20. Vanc trough 10/13/17: 10.4 -will repeat echo Hx of recent Left lung Pneumothorax -CT Chest 10/16/17: trace residual left penumothorax, increase in plural effusions. -s/p left anterior and posterior chest tubes placement and removal -Pulmonology Consult appreciated: Dr. Hameed, will follow recommendations -Continue high flow O2 supplementation via nasal cannula, monitor respiratory status Atrial Fibrillation -Chronic, asymptomatic -Coumadin not at therapeutic level as was resume ; home dose: 2.5 mg PO ////Mon, 5mg PO mon/mon. -Was previously on digoxin, but this was d/c by Dr. Last in May due to detection of brief pauses EKG -no beta blockers as patient has limited respiratory reserve -Now on Lovenox 70 mg SC Q12, will d/c when Coumadin theraputic dose is reached COPD -severe, chronic, Controlled -Pulmonology consult appreciated: Dr. Hameed -continue with Duonebs INH RQID ULISES, Xopenex INH RQ4 PRN -hold Spiriva 18 mcg INH QD, hold Advair Diskus 500/50 1 puff IH Q12: per pulmonology -hold Ventolin HFA 2 puff IH Q6 PRN -monitor respiratory status Left Lung Nodule, s/p Lung Biopsy on 10/04/17 at [facility] -bx showed cryptococcal organized pneumonia; per Dr. Hameed who spoke w/ Harmonreed Noriega Diabetes Mellitus type 2 -chronic, controlled -Repaglinide decreased to 1mg PO BID due to hypoglycemia -continue with home medications: Levemir 10 SC QHS. Insulin regular coverage scale added -Hypoglycemic treatment protocol in place -Renzo LAM -Last HBA1C: 7.7 on 05/2017 Hypertension -chronic, controlled -c/w Losartan 50 mg PO QD -HCTZ held as BP was running low -monitor BP HLD -chronic, controlled -continue home medication: atorvastatin 40mg DVT Prophylaxis -Now on Lovenox 70 mg SC Q12 -Discussed risks and benefits w/ marketing content coordinator Diet: Heart Healthy Code Status: -Full Code -Next of kin: , [place] [phone] - Date & Time Date: 10/18/17 Time: 07:50
[2017-10-18] MEDS: Levalbuterol 0.63 MG/3 ML Inhal Soln UD INH PRN (13:06)
--- NOTE | 2017-10-18 16:00 | CP.PCM.CON ---
History of Present Illness - History of Present Illness History of Present Illness: This 76 year old male with severe emphysema had developed pneumothorax after having percutaneous lung biopsy. He required chest tube placement with subsequent removal and insertion of two more tubes to achieve stable re- expansion. He has subsequently done well and has been discharged to [facility] because of marked debilitation and need for continued antibiotic treatment. Of note there have been one positive blood culture as well as a positive culture from the pleural fluid; both of these being coagulase negative Staphylococcus. Follow up chest x-ray after chest tube removal shows stable, re-expanded left lung with suggestion of small left pleural effusion. He does report blood admixed with his sputum this morning. 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 No solid lung primary ever identified. Mediastinoscopy performed, and removal of lung nodule done. Lung nodule pathology reported organizing pneumonia. - NEUROLOGICAL Hx Neurological Disorder: No - HEENT Hx HEENT Problems: No - RENAL Hx Chronic Kidney Disease: No - ENDOCRINE/METABOLIC Hx Diabetes Mellitus Type 2: Yes - HEMATOLOGICAL/ONCOLOGICAL Hx Blood Disorders: No - INTEGUMENTARY Hx Dermatological Problems: No - MUSCULOSKELETAL/RHEUMATOLOGICAL Hx Musculoskeletal Disorders: No Hx Falls: No - GASTROINTESTINAL Hx Gastrointestinal Disorders: No - GENITOURINARY/GYNECOLOGICAL Hx Genitourinary Disorders: Yes Hx Prostate Problems: Yes (BPH with LUTS) - PSYCHIATRIC Hx Psychophysiologic Disorder: No - SURGICAL HISTORY Hx Surgeries: Yes Other/Comment: Resected RUL nodule, mediastinoscopy. BACK SX. s/p chest tube. lung bx - ANESTHESIA Hx Anesthesia: Yes Hx Anesthesia Reactions: No Hx Malignant Hyperthermia: No Meds Allergies/Adverse Reactions: Allergies Allergy/AdvReac Type Severity Reaction Status Date / Time hydromorphone Allergy Mild RASH Verified 10/17/17 17:10 - Medications Medications: Current Medications Acetaminophen (Tylenol 325mg Tab) 650 mg PO Q4 PRN PRN Reason: Pain, Mild (1-3) Atorvastatin Calcium (Lipitor) 40 mg PO DAILY@2100 [facility] Last Admin: 10/17/17 21:53 Dose: 40 mg Dextrose (Dextrose 50% Inj) 0 ml IV STAT PRN; Protocol PRN Reason: Hypoglycemia Protocol Dextrose (Dextrose 50% Inj) 50 ml IVP ONCE PRN PRN Reason: Hypoglycemia Dextrose (Glutose 15) 0 gm PO ONCE PRN; Protocol PRN Reason: Hypoglycemia Protocol Enoxaparin Sodium (Lovenox) 70 mg SC Q12 ULISES PRN Reason: Protocol Last Admin: 10/18/17 08:25 Dose: 70 mg Famotidine (Pepcid) 20 mg PO DAILY [facility] Last Admin: 10/18/17 08:27 Dose: 20 mg Finasteride (Proscar) 5 mg PO DAILY [facility] Last Admin: 10/18/17 08:25 Dose: 5 mg Gabapentin (Neurontin) 300 mg PO HS [facility] Last Admin: 10/17/17 21:55 Dose: 300 mg Glucagon (Glucagen Diagnostic Kit) 0 mg IM STAT PRN; Protocol PRN Reason: Hypoglycemia Protocol Hydrochlorothiazide (Microzide) 12.5 mg PO DAILY [facility] Vancomycin HCl 750 mg/ Sodium (Chloride) 250 mls @ 250 mls/hr IVPB Q12@0000, 1200 [facility] Last Admin: 10/18/17 12:01 Dose: 250 mls/hr Meropenem 1 gm/ Sodium (Chloride) 100 mls @ 100 mls/hr IVPB Q8H [facility] PRN Reason: Protocol Last Admin: 10/18/17 13:36 Dose: 100 mls/hr Insulin Detemir (Levemir) 10 units SC HS [facility] Last Admin: 10/17/17 21:54 Dose: 10 u Insulin Human Regular (Humulin R) 0 units SC ACHS [facility] PRN Reason: Protocol Last Admin: 10/18/17 11:40 Dose: Not Given Levalbuterol HCl (Xopenex) 0.63 mg INH RQ4 PRN PRN Reason: Shortness of Breath Last Admin: 10/18/17 13:06 Dose: 0.63 mg Losartan Potassium (Cozaar) 50 mg PO DAILY [facility] Last Admin: 10/18/17 08:27 Dose: 50 mg Morphine Sulfate (Morphine) 2 mg IVP Q6 PRN PRN Reason: Pain, severe (8-10) Ondansetron HCl (Zofran Inj) 4 mg IVP Q6 PRN PRN Reason: Nausea/Vomiting Oxycodone/Acetaminophen (Percocet 5/325 Mg Tab) 1 tab PO Q4 PRN PRN Reason: Pain, moderate (4-7) Stop: 10/20/17 18:53 Last Admin: 10/17/17 21:49 Dose: 1 tab Repaglinide (Prandin) 1 mg PO TID [facility] Last Admin: 10/18/17 13:36 Dose: Not Given Senna/Docusate Sodium (Senokot S 50 Mg-8.6 Mg) 2 tab PO HS [facility] Last Admin: 10/17/17 21:56 Dose: 2 tab Tiotropium [place] (Spiriva) 18 mcg INH DAILY [facility] Warfarin Sodium (Coumadin) 5 mg PO QD5 ONE PRN Reason: Protocol Stop: 10/18/17 17:01 Physical Exam - Additional Findings Additional findings: Thin, well developed male, dyspneic after showering. No cyanosis of dependant edema. Chest dressing intact. No subcutaneous emphysema. Hyper-resonant note on chest percussion bilaterally. Markedly diminished, but equal breath sounds bilaterally. Sonorous rhonchi in lower zones bilaterally. Ferw medium rales. No distinct wheeze, but prolonged E phase noted. No bronchial breath sounds or egophony. Heart sounds irregular, distant. Results - Vital Signs Recent Vital Signs: Last Vital Signs Temp 97.7 F 10/18/17 09:25 Pulse 80 10/18/17 14:11 Resp 20 10/18/17 09:25 BP 131/67 10/18/17 09:25 Pulse Ox 99 10/18/17 14:11 - Labs Labs: Laboratory Results - last 24 hr 10/17/17 10/18/17 10/18/17 20:41 06:15 06:57 POC Glucose (mg/dL) 139 H 66 99 10/18/17 10/18/17 11:22 12:02 POC Glucose (mg/dL) 71 91 Assessment & Plan (1) Pneumothorax after biopsy Status: Acute Priority: High (2) COPD (chronic obstructive pulmonary disease) Status: Chronic Priority: Medium - Assessment and Plan (Free Text) Plan: Monitor chest x-ray for stability. Screen sputum cytologies. Resume maintenance inhalation therapy. - Date & Time Date: 10/18/17 Time: 15:59
[2017-10-18] MEDS: Oxycodone/Acetaminophen 5/325 mg Tab PO PRN (18:07)
[2017-10-18] MEDS: Docusate-Senna 50 mg-8.6 mg Tab PO SCH (21:03)
[2017-10-18] MEDS: Insulin Detemir 100 Units/ml Inj SC SCH (23:20)
[2017-10-19] MEDS: Levalbuterol 0.63 MG/3 ML Inhal Soln UD INH PRN ×2 (07:12→11:12)
[2017-10-19 07:21] LABS: INR 1.2
[2017-10-19] MEDS: Insulin Regular 100 units/ml SC SCH ×4 (08:07→21:55)
[2017-10-19] MEDS: Enoxaparin 80 mg Syringe SC SCH ×2 (08:27→20:30)
--- NOTE | 2017-10-19 08:47 | RAD ---
HISTORY: COMPARISON: 10/17/2017. TECHNIQUE: Chest PA and lateral FINDINGS: LINES AND TUBES: None. LUNG AND PLEURA: The lungs are hyperinflated and there is peribronchial thickening with chronic changes in both lungs. There is linear scarring in the right upper lobe, left upper lobe and both lower lobes. Suspect small pleural effusions. No pneumothorax. HEART AND MEDIASTINUM: The heart is not enlarged. Atherosclerotic aortic arch calcifications are present. The hilar and mediastinal contours are within normal limits. SKELETAL STRUCTURES: The bony structures are within normal limits for the patient's age. VISUALIZED UPPER ABDOMEN: Normal. OTHER FINDINGS: None. IMPRESSION: COPD. Fibrotic changes in both upper lobes and lung bases. No active pulmonary disease. Suspect small pleural effusions.
[2017-10-19] MEDS: Oxycodone/Acetaminophen 5/325 mg Tab PO PRN ×3 (13:25→20:26)
[2017-10-19] MEDS: Meropenem 1 GM in Sodium Chloride 0.9% 100 ML IVPB SCH ×3 (13:28→21:57)
[2017-10-20] MEDS: Docusate-Senna 50 mg-8.6 mg Tab PO SCH ×2 (00:09→21:01)
[2017-10-20] MEDS ORDERED: Albuterol-Ipratrop 3 mg / 0.5 (3 ml) UD INH PRN (02:58)
[2017-10-20] MEDS: Albuterol-Ipratrop 3 mg / 0.5 (3 ml) UD INH STA ×2 (03:28→08:50)
[2017-10-20] MEDS: Meropenem 1 GM in Sodium Chloride 0.9% 100 ML IVPB SCH ×2 (05:49→12:47)
[2017-10-20 07:10] LABS: INR 1.2; PROTHROMBIN TIME 13.5 Seconds (9.8-13.1)
[2017-10-20] MEDS: Insulin Regular 100 units/ml SC SCH ×4 (09:45→21:04)
[2017-10-20] MEDS: Enoxaparin 80 mg Syringe SC SCH (09:49)
[2017-10-20] MEDS: Tiotropium 18 mcg Cap For Inhalation INH SCH ×2 (09:51→09:52)
--- NOTE | 2017-10-20 09:59 | CP.PCM.CON ---
History of Present Illness - History of Present Illness History of Present Illness: This 76 year old male with severe emphysema had developed pneumothorax after having percutaneous lung biopsy. He required chest tube placement with subsequent removal and insertion of two more tubes to achieve stable re- expansion. He has subsequently done well and has been discharged to [facility] because of marked debilitation and need for continued antibiotic treatment. Of note there have been one positive blood culture as well as a positive culture from the pleural fluid; both of these being coagulase negative Staphylococcus. Follow up chest x-ray after chest tube removal shows stable, re-expanded left lung with suggestion of small left pleural effusion. Pmhx: hypertension, COPD, DM2, A-fib, lung nodule Past surgical hx: left ant./post. chest tube placement. left lung nodule/mass EKG: Atrial Fibrillation Echo: Good LV function EF: 60-65% There is no evidence of thickening or vegetation on any of the valves Past Patient History - Past Medical History & Family History Past Medical History?: Yes - Past Social History Smoking Status: Former Smoker Chewing Tobacco Use: No Cigar Use: No Alcohol: Social Drugs: Cannabis Home Situation {Lives}: With Family - CARDIAC Hx Atrial Fibrillation: Yes Hx Hypercholesterolemia: Yes Hx Hypertension: Yes - PULMONARY Hx Chronic Obstructive Pulmonary Disease (COPD): Yes Hx Emphysema: Yes Hx Pneumonia: Yes Other/Comment: 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 No solid lung primary ever identified. Mediastinoscopy performed, and removal of lung nodule done. Lung nodule pathology reported organizing pneumonia. - NEUROLOGICAL Hx Neurological Disorder: No - HEENT Hx HEENT Problems: No - RENAL Hx Chronic Kidney Disease: No - ENDOCRINE/METABOLIC Hx Diabetes Mellitus Type 2: Yes - HEMATOLOGICAL/ONCOLOGICAL Hx Blood Disorders: No - INTEGUMENTARY Hx Dermatological Problems: No - MUSCULOSKELETAL/RHEUMATOLOGICAL Hx Musculoskeletal Disorders: No Hx Falls: No - GASTROINTESTINAL Hx Gastrointestinal Disorders: No - GENITOURINARY/GYNECOLOGICAL Hx Genitourinary Disorders: Yes Hx Prostate Problems: Yes (BPH with LUTS) - PSYCHIATRIC Hx Psychophysiologic Disorder: No - SURGICAL HISTORY Hx Surgeries: Yes Other/Comment: Resected RUL nodule, mediastinoscopy. BACK SX. s/p chest tube. lung bx - ANESTHESIA Hx Anesthesia: Yes Hx Anesthesia Reactions: No Hx Malignant Hyperthermia: No Meds Allergies/Adverse Reactions: Allergies Allergy/AdvReac Type Severity Reaction Status Date / Time hydromorphone Allergy Mild RASH Verified 10/17/17 17:10 - Medications Medications: Current Medications Acetaminophen (Tylenol 325mg Tab) 650 mg PO Q4 PRN PRN Reason: Pain, Mild (1-3) Atorvastatin Calcium (Lipitor) 40 mg PO DAILY@2100 [facility] Last Admin: 10/19/17 20:31 Dose: 40 mg Dextrose (Dextrose 50% Inj) 0 ml IV STAT PRN; Protocol PRN Reason: Hypoglycemia Protocol Dextrose (Dextrose 50% Inj) 50 ml IVP ONCE PRN PRN Reason: Hypoglycemia Dextrose (Glutose 15) 0 gm PO ONCE PRN; Protocol PRN Reason: Hypoglycemia Protocol Enoxaparin Sodium (Lovenox) 70 mg SC Q12 ULISES PRN Reason: Protocol Last Admin: 10/19/17 20:30 Dose: 70 mg Famotidine (Pepcid) 20 mg PO DAILY [facility] Last Admin: 10/19/17 08:28 Dose: 20 mg Finasteride (Proscar) 5 mg PO DAILY [facility] Last Admin: 10/19/17 08:24 Dose: 5 mg Fluticasone Propionate (Flonase) 2 spr EDMUNDO DAILY [facility] Last Admin: 10/19/17 08:23 Dose: 2 spr Gabapentin (Neurontin) 300 mg PO HS [facility] Last Admin: 10/19/17 21:58 Dose: 300 mg Glucagon (Glucagen Diagnostic Kit) 0 mg IM STAT PRN; Protocol PRN Reason: Hypoglycemia Protocol Hydrochlorothiazide (Microzide) 12.5 mg PO DAILY [facility] Meropenem 1 gm/ Sodium (Chloride) 100 mls @ 100 mls/hr IVPB Q8H [facility] PRN Reason: Protocol Last Admin: 10/20/17 05:49 Dose: 100 mls/hr Vancomycin HCl 750 mg/ Sodium (Chloride) 250 mls @ 250 mls/hr IVPB Q12@0500, 1700 [facility] Last Admin: 10/20/17 05:53 Dose: 250 mls/hr Insulin Detemir (Levemir) 10 units SC HS [facility] Last Admin: 10/18/17 23:20 Dose: Not Given Insulin Human Regular (Humulin R) 0 units SC ACHS ULISES PRN Reason: Protocol Last Admin: 10/20/17 09:45 Dose: Not Given Levalbuterol HCl (Xopenex) 0.63 mg INH RQ4 PRN PRN Reason: Shortness of Breath Last Admin: 10/19/17 11:12 Dose: 0.63 mg Losartan Potassium (Cozaar) 50 mg PO DAILY [facility] Last Admin: 10/19/17 08:25 Dose: 50 mg Morphine Sulfate (Morphine) 2 mg IVP Q6 PRN PRN Reason: Pain, severe (8-10) Ondansetron HCl (Zofran Inj) 4 mg IVP Q6 PRN PRN Reason: Nausea/Vomiting Oxycodone/Acetaminophen (Percocet 5/325 Mg Tab) 1 tab PO Q4 PRN PRN Reason: Pain, moderate (4-7) Stop: 10/20/17 18:53 Last Admin: 10/19/17 20:26 Dose: 1 tab Repaglinide (Prandin) 1 mg PO TID [facility] Last Admin: 10/19/17 17:55 Dose: 1 mg Senna/Docusate Sodium (Senokot S 50 Mg-8.6 Mg) 2 tab PO HS [facility] Last Admin: 10/20/17 00:09 Dose: Not Given Tiotropium [place] (Spiriva) 18 mcg INH DAILY [facility] Physical Exam - Respiratory Exam Respiratory Exam: Decreased Breath Sounds - Cardiovascular Exam Cardiovascular Exam: Irregular Rhythm Results - Vital Signs Recent Vital Signs: Last Vital Signs Temp 97.9 F 10/20/17 08:29 Pulse 88 10/20/17 08:29 Resp 20 10/20/17 08:29 BP 140/64 10/20/17 08:29 Pulse Ox 100 10/20/17 08:29 - Labs Labs: Laboratory Results - last 24 hr 10/19/17 10/19/17 10/19/17 10:45 16:22 20:50 PT INR POC Glucose (mg/dL) 159 H 117 H 98 10/20/17 10/20/17 02:53 06:20 PT 13.5 H INR 1.2 POC Glucose (mg/dL) 114 H Assessment & Plan (1) Atrial fibrillation Assessment and Plan: There is no evidence of vegetations or thickening on the valves Status: Chronic Priority: Low (2) Pneumothorax after biopsy Status: Acute Priority: High (3) COPD exacerbation Status: Acute (4) Pneumonia Status: Acute Priority: Medium (5) Sepsis Status: Acute (6) COPD (chronic obstructive pulmonary disease) Status: Chronic Priority: Medium (7) Pulmonary nodules/lesions, multiple Status: Chronic Priority: High (8) Type 2 diabetes mellitus Status: Chronic Priority: Low - Date & Time Date: 10/20/17 Time: 10:00
--- NOTE | 2017-10-20 11:21 | CP.PCM.PN ---
<Rosanna Sorto - Last Filed: 10/20/17 12:30> Subjective - Subjective Subjective: Mr. Luke was seen/evaluated this morning. He reports that he had 2 episodes of hemoptysis this morning (less than 1/2 teaspoon), and had the expectorant in a cup at bedside. He states he feels well otherwise; is participating in physical therapy. Objective - Vital Signs/Intake and Output Vital Signs (last 24 hours): Temp Pulse Resp BP Pulse Ox 97.9 F 67 20 133/59 L 100 10/20/17 08:29 10/20/17 09:51 10/20/17 08:29 10/20/17 09:51 10/20/17 08:29 - Medications Medications: Current Medications Acetaminophen (Tylenol 325mg Tab) 650 mg PO Q4 PRN PRN Reason: Pain, Mild (1-3) Atorvastatin Calcium (Lipitor) 40 mg PO DAILY@2100 [facility] Last Admin: 10/19/17 20:31 Dose: 40 mg Dextrose (Dextrose 50% Inj) 0 ml IV STAT PRN; Protocol PRN Reason: Hypoglycemia Protocol Dextrose (Dextrose 50% Inj) 50 ml IVP ONCE PRN PRN Reason: Hypoglycemia Dextrose (Glutose 15) 0 gm PO ONCE PRN; Protocol PRN Reason: Hypoglycemia Protocol Famotidine (Pepcid) 20 mg PO DAILY [facility] Last Admin: 10/19/17 08:28 Dose: 20 mg Finasteride (Proscar) 5 mg PO DAILY [facility] Last Admin: 10/19/17 08:24 Dose: 5 mg Fluticasone Propionate (Flonase) 2 spr EDMUNDO DAILY [facility] Last Admin: 10/20/17 09:50 Dose: 2 spr Gabapentin (Neurontin) 300 mg PO HS [facility] Last Admin: 10/19/17 21:58 Dose: 300 mg Glucagon (Glucagen Diagnostic Kit) 0 mg IM STAT PRN; Protocol PRN Reason: Hypoglycemia Protocol Hydrochlorothiazide (Microzide) 12.5 mg PO DAILY [facility] Meropenem 1 gm/ Sodium (Chloride) 100 mls @ 100 mls/hr IVPB Q8H ULISES PRN Reason: Protocol Last Admin: 10/20/17 05:49 Dose: 100 mls/hr Vancomycin HCl 750 mg/ Sodium (Chloride) 250 mls @ 250 mls/hr IVPB Q12@0500, 1700 [facility] Last Admin: 10/20/17 05:53 Dose: 250 mls/hr Insulin Detemir (Levemir) 10 units SC [facility] Last Admin: 10/18/17 23:20 Dose: Not Given Insulin Human Regular (Humulin R) 0 units SC ACHS [facility] PRN Reason: Protocol Last Admin: 10/20/17 09:45 Dose: Not Given Levalbuterol HCl (Xopenex) 0.63 mg INH RQ4 PRN PRN Reason: Shortness of Breath Last Admin: 10/19/17 11:12 Dose: 0.63 mg Losartan Potassium (Cozaar) 50 mg PO DAILY [facility] Last Admin: 10/20/17 09:51 Dose: 50 mg Morphine Sulfate (Morphine) 2 mg IVP Q6 PRN PRN Reason: Pain, severe (8-10) Ondansetron HCl (Zofran Inj) 4 mg IVP Q6 PRN PRN Reason: Nausea/Vomiting Oxycodone/Acetaminophen (Percocet 5/325 Mg Tab) 1 tab PO Q4 PRN PRN Reason: Pain, moderate (4-7) Stop: 10/20/17 18:53 Last Admin: 10/19/17 20:26 Dose: 1 tab Repaglinide (Prandin) 1 mg PO TID [facility] Last Admin: 10/20/17 09:51 Dose: 1 mg Senna/Docusate Sodium (Senokot S 50 Mg-8.6 Mg) 2 tab PO [facility] Last Admin: 10/20/17 00:09 Dose: Not Given Tiotropium [place] (Spiriva) 18 mcg INH DAILY [facility] Last Admin: 10/20/17 09:52 Dose: 18 mcg - Labs Labs: PT 13.5 Seconds (9.8-13.1) H 10/20/17 06:20 INR 1.2 10/20/17 06:20 APTT 46.0 Seconds (25.6-37.1) H 10/19/17 06:20 - Constitutional Appears: No Acute Distress - Respiratory Exam Respiratory Exam: Decreased Breath Sounds, NORMAL BREATHING PATTERN Additional comments: breath sounds diminished, but are equal bilaterally - Cardiovascular Exam Additional comments: distant heart sounds - Back Exam Additional comments: no dependent edema, no cyanosis - Neurological Exam Neurological Exam: Alert - Skin Skin Exam: Normal Color, Warm Assessment and Plan (1) Cough with hemoptysis Status: Acute (2) Pneumothorax after biopsy Status: Acute (3) COPD (chronic obstructive pulmonary disease) Status: Chronic - Assessment and Plan (Free Text) Plan: Discontinue lovenox Send expectorant for cytology Monitor CXR for changes <Elgin Hameed - Last Filed: 10/20/17 13:41> Subjective - Date & Time of Evaluation Date of Evaluation: 10/20/17 Time of Evaluation: 11:21 - Subjective Subjective: Seen and examined together with the residents on rounds. Physical findings were discussed and any ancillary studies were reviewed. The case was discussed and a plan of care formulated. The entry made by the resident in the EMR is an accurate description of today's encounter. The sputum sample at the bedside was sent to the lab for cytology. The re[eat chest x-ray shows continued expansion of the lung and stable basal effusion. Objective - Vital Signs/Intake and Output Vital Signs (last 24 hours): Temp Pulse Resp BP Pulse Ox 97.9 F 67 20 133/59 L 100 10/20/17 08:29 10/20/17 09:51 10/20/17 08:29 10/20/17 09:51 10/20/17 08:29 - Medications Medications: Current Medications Acetaminophen (Tylenol 325mg Tab) 650 mg PO Q4 PRN PRN Reason: Pain, Mild (1-3) Atorvastatin Calcium (Lipitor) 40 mg PO DAILY@2100 [facility] Last Admin: 10/19/17 20:31 Dose: 40 mg Dextrose (Dextrose 50% Inj) 0 ml IV STAT PRN; Protocol PRN Reason: Hypoglycemia Protocol Dextrose (Dextrose 50% Inj) 50 ml IVP ONCE PRN PRN Reason: Hypoglycemia Dextrose (Glutose 15) 0 gm PO ONCE PRN; Protocol PRN Reason: Hypoglycemia Protocol Famotidine (Pepcid) 20 mg PO DAILY [facility] Last Admin: 10/19/17 08:28 Dose: 20 mg Finasteride (Proscar) 5 mg PO DAILY [facility] Last Admin: 10/19/17 08:24 Dose: 5 mg Fluticasone Propionate (Flonase) 2 spr EDMUNDO DAILY [facility] Last Admin: 10/20/17 09:50 Dose: 2 spr Gabapentin (Neurontin) 300 mg PO HS [facility] Last Admin: 10/19/17 21:58 Dose: 300 mg Glucagon (Glucagen Diagnostic Kit) 0 mg IM STAT PRN; Protocol PRN Reason: Hypoglycemia Protocol Hydrochlorothiazide (Microzide) 12.5 mg PO DAILY [facility] Meropenem 1 gm/ Sodium (Chloride) 100 mls @ 100 mls/hr IVPB Q8H ULISES PRN Reason: Protocol Last Admin: 10/20/17 05:49 Dose: 100 mls/hr Vancomycin HCl 750 mg/ Sodium (Chloride) 250 mls @ 250 mls/hr IVPB Q12@0500, 1700 [facility] Last Admin: 10/20/17 05:53 Dose: 250 mls/hr Insulin Detemir (Levemir) 10 units SC HS [facility] Last Admin: 10/18/17 23:20 Dose: Not Given Insulin Human Regular (Humulin R) 0 units SC [facility] PRN Reason: Protocol Last Admin: 10/20/17 09:45 Dose: Not Given Levalbuterol HCl (Xopenex) 0.63 mg INH RQ4 PRN PRN Reason: Shortness of Breath Last Admin: 10/19/17 11:12 Dose: 0.63 mg Losartan Potassium (Cozaar) 50 mg PO DAILY [facility] Last Admin: 10/20/17 09:51 Dose: 50 mg Morphine Sulfate (Morphine) 2 mg IVP Q6 PRN PRN Reason: Pain, severe (8-10) Ondansetron HCl (Zofran Inj) 4 mg IVP Q6 PRN PRN Reason: Nausea/Vomiting Oxycodone/Acetaminophen (Percocet 5/325 Mg Tab) 1 tab PO Q4 PRN PRN Reason: Pain, moderate (4-7) Stop: 10/20/17 18:53 Last Admin: 10/19/17 20:26 Dose: 1 tab Repaglinide (Prandin) 1 mg PO TID [facility] Last Admin: 10/20/17 09:51 Dose: 1 mg Senna/Docusate Sodium (Senokot S 50 Mg-8.6 Mg) 2 tab PO [facility] Last Admin: 10/20/17 00:09 Dose: Not Given Tiotropium [place] (Spiriva) 18 mcg INH DAILY [facility] Last Admin: 10/20/17 09:52 Dose: 18 mcg - Labs Labs: PT 13.5 Seconds (9.8-13.1) H 10/20/17 06:20 INR 1.2 10/20/17 06:20 APTT 46.0 Seconds (25.6-37.1) H 10/19/17 06:20 Assessment and Plan (1) Pneumothorax after biopsy Status: Acute (2) COPD (chronic obstructive pulmonary disease) Status: Chronic
--- NOTE | 2017-10-20 11:28 | CP.PCM.PN ---
Subjective - Date & Time of Evaluation Date of Evaluation: 10/20/17 Time of Evaluation: 09:00 - Subjective Subjective: Patient seen and evaluated during morning rounds. Patient reported cough with bloody sputum since yesterday. Sputum is grossly bloody about 3-4 times since yesterday. Patient also had an episode of SOB yesterday night which improved with Xopenex, O2 sat improved from 91% to 95 %. Denies any current SOB, CP, N/V , headache, dizziness. Appetite WNL. Tolerating liquid and solid diet well PO. Dr. Hameed consult on board. Objective - Vital Signs/Intake and Output Vital Signs (last 24 hours): Temp Pulse Resp BP Pulse Ox 97.9 F 67 20 133/59 L 100 10/20/17 08:29 10/20/17 09:51 10/20/17 08:29 10/20/17 09:51 10/20/17 08:29 - Medications Medications: Current Medications Acetaminophen (Tylenol 325mg Tab) 650 mg PO Q4 PRN PRN Reason: Pain, Mild (1-3) Atorvastatin Calcium (Lipitor) 40 mg PO DAILY@2100 [facility] Last Admin: 10/19/17 20:31 Dose: 40 mg Dextrose (Dextrose 50% Inj) 0 ml IV STAT PRN; Protocol PRN Reason: Hypoglycemia Protocol Dextrose (Dextrose 50% Inj) 50 ml IVP ONCE PRN PRN Reason: Hypoglycemia Dextrose (Glutose 15) 0 gm PO ONCE PRN; Protocol PRN Reason: Hypoglycemia Protocol Famotidine (Pepcid) 20 mg PO DAILY [facility] Last Admin: 10/19/17 08:28 Dose: 20 mg Finasteride (Proscar) 5 mg PO DAILY [facility] Last Admin: 10/19/17 08:24 Dose: 5 mg Fluticasone Propionate (Flonase) 2 spr EDMUNDO DAILY [facility] Last Admin: 10/20/17 09:50 Dose: 2 spr Gabapentin (Neurontin) 300 mg PO HS [facility] Last Admin: 10/19/17 21:58 Dose: 300 mg Glucagon (Glucagen Diagnostic Kit) 0 mg IM STAT PRN; Protocol PRN Reason: Hypoglycemia Protocol Hydrochlorothiazide (Microzide) 12.5 mg PO DAILY [facility] Meropenem 1 gm/ Sodium (Chloride) 100 mls @ 100 mls/hr IVPB Q8H ULISES PRN Reason: Protocol Last Admin: 10/20/17 05:49 Dose: 100 mls/hr Vancomycin HCl 750 mg/ Sodium (Chloride) 250 mls @ 250 mls/hr IVPB Q12@0500, 1700 [facility] Last Admin: 10/20/17 05:53 Dose: 250 mls/hr Insulin Detemir (Levemir) 10 units SC [facility] Last Admin: 10/18/17 23:20 Dose: Not Given Insulin Human Regular (Humulin R) [address] [facility] PRN Reason: Protocol Last Admin: 10/20/17 09:45 Dose: Not Given Levalbuterol HCl (Xopenex) 0.63 mg INH RQ4 PRN PRN Reason: Shortness of Breath Last Admin: 10/19/17 11:12 Dose: 0.63 mg Losartan Potassium (Cozaar) 50 mg PO DAILY [facility] Last Admin: 10/20/17 09:51 Dose: 50 mg Morphine Sulfate (Morphine) 2 mg IVP Q6 PRN PRN Reason: Pain, severe (8-10) Ondansetron HCl (Zofran Inj) 4 mg IVP Q6 PRN PRN Reason: Nausea/Vomiting Oxycodone/Acetaminophen (Percocet 5/325 Mg Tab) 1 tab PO Q4 PRN PRN Reason: Pain, moderate (4-7) Stop: 10/20/17 18:53 Last Admin: 10/19/17 20:26 Dose: 1 tab Repaglinide (Prandin) 1 mg PO TID [facility] Last Admin: 10/20/17 09:51 Dose: 1 mg Senna/Docusate Sodium (Senokot S 50 Mg-8.6 Mg) 2 tab PO [facility] Last Admin: 10/20/17 00:09 Dose: Not Given Tiotropium [place] (Spiriva) 18 mcg INH DAILY [facility] Last Admin: 10/20/17 09:52 Dose: 18 mcg - Labs Labs: PT 13.5 Seconds (9.8-13.1) H 10/20/17 06:20 INR 1.2 10/20/17 06:20 APTT 46.0 Seconds (25.6-37.1) H 10/19/17 06:20 - Constitutional Appears: Well, Non-toxic, No Acute Distress - Head Exam Head Exam: ATRAUMATIC, NORMAL INSPECTION, NORMOCEPHALIC - Eye Exam Eye Exam: Normal appearance, PERRL - ENT Exam ENT Exam: Mucous Membranes Moist - Respiratory Exam Respiratory Exam: Decreased Breath Sounds. absent: Rales, Rhonchi, Wheezes - Cardiovascular Exam Cardiovascular Exam: Irregular Rhythm, +S1, +S2 - GI/Abdominal Exam GI & Abdominal Exam: Soft, Normal Bowel Sounds. absent: Tenderness - Extremities Exam Extremities Exam: absent: Calf Tenderness, Tenderness - Neurological Exam Neurological Exam: Alert, Awake, Oriented x3 - Psychiatric Exam Psychiatric exam: Normal Affect, Normal Mood - Skin Skin Exam: Dry, Intact, Normal Color, Petechiae Assessment and Plan - Assessment and Plan (Free Text) Assessment: 76 year old male w/ hx of HTN, COPD, DM2, atrial fibrillation, left pneumothorax s/p left ant. and post. chest tube placement who was transferred to TCU for PT/OT. Plan: Hx of Blood cultures positive for gram+ cocci -10/07/2017 GPC+ in anaerobic sample, possible contaminant. 10/09 blood culture gram + bacilli -repeat blood cultures no growth -ID consult appreciated; Meropenem 1 gm IV Q12 day(Last Day) and Vancomycin 750 mg Q12 day #10(4 more days) with trough goal <20. Vanc trough 10/13/17: 10.4 - As per Technical Mgr Dr. Mg: On Echo: Good LV function, EF: 60-65%, There is no evidence of thickening or vegetation on any of the valves. Hx of recent Left lung Pneumothorax -CT Chest 10/16/17: trace residual left penumothorax, increase in plural effusions. -s/p left anterior and posterior chest tubes placement and removal -Pulmonology Consult appreciated: Dr. Hameed, will follow recommendations -On 3L NC O2 supplementation, monitor respiratory status -CXR today: No acute changes compared to previous CXR. Bloody sputum/Hemoptysis - Grossly blood, Sent sputum for culture - Pulmonary consult on boards: Recommendations appreciated. - Hold Lovenox as per Dr. Hameed - CXR today: No acute changes compared to previous CXR. - CBC : HGB 11.0, Unremarkable otherwise. - Will monitor status Atrial Fibrillation -Chronic, asymptomatic -Was previously on digoxin, but this was d/c by Dr. Last in May due to detection of brief pauses EKG -no beta blockers as patient has limited respiratory reserve -Will hold coumadin due to hemoptysis. Discussed with PMD. -Lovenox 70 mg SC Q12 on Hold COPD -severe, chronic, Controlled -Pulmonology consult appreciated: Dr. Hameed -continue with Duonebs INH RQID ULISES, Xopenex INH RQ4 PRN -hold Spiriva 18 mcg INH QD, hold Advair Diskus 500/50 1 puff IH Q12: per pulmonology -hold Ventolin HFA 2 puff IH Q6 PRN -monitor respiratory status Left Lung Nodule, s/p Lung Biopsy on 10/04/[address] [facility] [place] -bx showed cryptococcal organized pneumonia; per Dr. Hameed who spoke w/ Faustino Noriega -F/U w/ Faustino Noriega after discharge for further evaluation. Diabetes Mellitus type 2 -chronic, controlled -Repaglinide decreased to 1mg PO BID due to hypoglycemia -continue with home medications: Levemir 10 SC QHS. Insulin regular coverage scale added -Hypoglycemic treatment protocol in place -Renzo LAM -Last HBA1C: 7.7 on 05/2017 Hypertension -chronic, controlled -c/w Losartan 50 mg PO QD -HCTZ held as BP was running low -monitor BP HLD -chronic, controlled -continue home medication: atorvastatin 40mg DVT Prophylaxis -Lovenox on Hold due to hemoptysis. -Discussed risks and benefits w/ completions manager Diet: Heart Healthy Code Status: -Full Code -Next of kin: , [place] [phone]
[2017-10-20 12:21] LABS: MEAN CELL VOLUME 93.6 fl (80.0-94.0); MEAN CORPUSCULAR HEMOGLOBIN 32.3 pg (27.0-31.0); MEAN CORPUSCULAR HGB CONC 34.5 g/dL (33.0-37.0); RBC 3.4 Mil/uL (4.40-5.90); RED CELL DISTRIBUTION WIDTH 13.4 % (11.5-14.5); WHITE BLOOD COUNT 8.3 K/uL (4.8-10.8)
[2017-10-20 13:00] LABS: BLOOD UREA NITROGEN 17 mg/dl (9-20); CALCIUM 8.8 mg/dL (8.4-10.2); GFR NON-AFRICAN AMERICAN > 60
--- NOTE | 2017-10-20 13:47 | RAD ---
Date of service: 10/20/2017 HISTORY: pneumothorax COMPARISON: 10/18/2017 TECHNIQUE: Chest PA and lateral FINDINGS: LUNGS: Pulmonary hyperinflation with increase in the A-P diameter and flattening of the diaphragms, consistent with emphysema. There is multifocal tenting of the right and left hemidiaphragms, nonspecific. There is linear scar in the lateral right upper lobe. There is no infiltrate. PLEURA: No pneumothorax. Blunting of both costophrenic angles may reflect small pleural effusions. CARDIOVASCULAR: Normal. OSSEOUS STRUCTURES: No significant abnormalities. VISUALIZED UPPER ABDOMEN: Normal. OTHER FINDINGS: None. IMPRESSION: No pneumothorax. No acute infiltrate. Possible small bilateral pleural effusion. Probable emphysema.
--- NOTE | 2017-10-20 14:50 | CP.PCM.PN ---
Subjective - Date & Time of Evaluation Date of Evaluation: 10/20/17 Time of Evaluation: 14:50 - Subjective Subjective: ID Note- pt. seen and examined today. Pt. is in PT room and doing stationary biking and denies any sob and is in good spirits. Objective - Vital Signs/Intake and Output Vital Signs (last 24 hours): Temp Pulse Resp BP Pulse Ox 97.9 F 67 20 133/59 L 100 10/20/17 08:29 10/20/17 09:51 10/20/17 08:29 10/20/17 09:51 10/20/17 08:29 - Medications Medications: Current Medications Acetaminophen (Tylenol 325mg Tab) 650 mg PO Q4 PRN PRN Reason: Pain, Mild (1-3) Atorvastatin Calcium (Lipitor) 40 mg PO DAILY@2100 [facility] Last Admin: 10/19/17 20:31 Dose: 40 mg Dextrose (Dextrose 50% Inj) 0 ml IV STAT PRN; Protocol PRN Reason: Hypoglycemia Protocol Dextrose (Dextrose 50% Inj) 50 ml IVP ONCE PRN PRN Reason: Hypoglycemia Dextrose (Glutose 15) 0 gm PO ONCE PRN; Protocol PRN Reason: Hypoglycemia Protocol Famotidine (Pepcid) 20 mg PO DAILY [facility] Last Admin: 10/20/17 09:48 Dose: 20 mg Finasteride (Proscar) 5 mg PO DAILY [facility] Last Admin: 10/20/17 09:48 Dose: 5 mg Fluticasone Propionate (Flonase) 2 spr EDMUNDO DAILY [facility] Last Admin: 10/20/17 09:50 Dose: 2 spr Gabapentin (Neurontin) 300 mg PO [facility] Last Admin: 10/19/17 21:58 Dose: 300 mg Glucagon (Glucagen Diagnostic Kit) 0 mg IM STAT PRN; Protocol PRN Reason: Hypoglycemia Protocol Hydrochlorothiazide (Microzide) 12.5 mg PO DAILY [facility] Meropenem 1 gm/ Sodium (Chloride) 100 mls @ 100 mls/hr IVPB Q8H [facility] PRN Reason: Protocol Last Admin: 10/20/17 12:47 Dose: 100 mls/hr Vancomycin HCl 750 mg/ Sodium (Chloride) 250 mls @ 250 mls/hr IVPB Q12@0500, 1700 [facility] Last Admin: 10/20/17 05:53 Dose: 250 mls/hr Insulin Detemir (Levemir) 10 units SC [facility] Last Admin: 10/18/17 23:20 Dose: Not Given Insulin Human Regular (Humulin R) 0 units SC [facility] PRN Reason: Protocol Last Admin: 10/20/17 12:46 Dose: Not Given Levalbuterol HCl (Xopenex) 0.63 mg INH RQ4 PRN PRN Reason: Shortness of Breath Last Admin: 10/19/17 11:12 Dose: 0.63 mg Losartan Potassium (Cozaar) 50 mg PO DAILY [facility] Last Admin: 10/20/17 09:51 Dose: 50 mg Morphine Sulfate (Morphine) 2 mg IVP Q6 PRN PRN Reason: Pain, severe (8-10) Ondansetron HCl (Zofran Inj) 4 mg IVP Q6 PRN PRN Reason: Nausea/Vomiting Oxycodone/Acetaminophen (Percocet 5/325 Mg Tab) 1 tab PO Q4 PRN PRN Reason: Pain, moderate (4-7) Stop: 10/20/17 18:53 Last Admin: 10/19/17 20:26 Dose: 1 tab Repaglinide (Prandin) 1 mg PO TID [facility] Last Admin: 10/20/17 12:48 Dose: 1 mg Senna/Docusate Sodium (Senokot S 50 Mg-8.6 Mg) 2 tab PO [facility] Last Admin: 10/20/17 00:09 Dose: Not Given Tiotropium [place] (Spiriva) 18 mcg INH DAILY [facility] Last Admin: 10/20/17 09:52 Dose: 18 mcg - Labs Labs: - Additional Findings Additional findings: - Constitutional Appears: NAD - Head Exam Head Exam: ATRAUMATIC - Eye Exam Eye Exam: EOMI, PERRL - ENT Exam ENT Exam: Normal Oropharynx - Neck Exam Neck exam: Positive for: Full Rom - Respiratory Exam Additional comments: chest tube shave been removed. no subcutaneous emphysema felt anymore good breath sounds b/l - Cardiovascular Exam Cardiovascular Exam: Tachycardia, +S1, +S2 - GI/Abdominal Exam GI & Abdominal Exam: Normal Bowel Sounds, Soft Additional comments: NT, ND - Extremities Exam Extremities exam: Positive for: normal inspection Additional comments: no edema B/L LE - Neurological Exam Neurological exam: Alert, Oriented x 3 Results Laboratory Results - last 72 hr 10/17/17 10/18/17 10/18/17 20:41 06:15 06:57 WBC RBC Hgb Hct MCV MCH MCHC RDW Plt Count PT INR APTT Sodium Potassium Chloride Carbon Dioxide Anion Gap BUN Creatinine Est GFR ( Amer) Est GFR (Non-Af Amer) POC Glucose (mg/dL) 139 H 66 99 Random Glucose Calcium Vancomycin Trough 10/18/17 10/18/17 10/18/17 11:22 12:02 16:35 WBC RBC Hgb Hct MCV MCH MCHC RDW Plt Count PT INR APTT Sodium Potassium Chloride Carbon Dioxide Anion Gap BUN Creatinine Est GFR ( Amer) Est GFR (Non-Af Amer) POC Glucose (mg/dL) 71 91 102 Random Glucose Calcium Vancomycin Trough 10/18/17 10/18/17 10/19/17 20:41 22:55 05:20 WBC RBC Hgb Hct MCV MCH MCHC RDW Plt Count PT INR APTT Sodium Potassium Chloride Carbon Dioxide Anion Gap BUN Creatinine Est GFR ( Amer) Est GFR (Non-Af Amer) POC Glucose (mg/dL) 57 L 93 75 Random Glucose Calcium Vancomycin Trough 10/19/17 10/19/17 10/19/17 06:20 06:20 08:17 WBC RBC Hgb Hct MCV MCH MCHC RDW Plt Count PT 13.0 INR 1.2 APTT 46.0 H Sodium Potassium Chloride Carbon Dioxide Anion Gap BUN Creatinine Est GFR ( Amer) Est GFR (Non-Af Amer) POC Glucose (mg/dL) 133 H Random Glucose Calcium Vancomycin Trough 10.8 H 10/19/17 10/19/17 10/19/17 10:45 16:22 20:50 WBC RBC Hgb Hct MCV MCH MCHC RDW Plt Count PT INR APTT Sodium Potassium Chloride Carbon Dioxide Anion Gap BUN Creatinine Est GFR ( Amer) Est GFR (Non-Af Amer) POC Glucose (mg/dL) 159 H 117 H 98 Random Glucose Calcium Vancomycin Trough 10/20/17 10/20/17 10/20/17 02:53 06:20 11:27 WBC RBC Hgb Hct MCV MCH MCHC RDW Plt Count PT 13.5 H INR 1.2 APTT Sodium Potassium Chloride Carbon Dioxide Anion Gap BUN Creatinine Est GFR ( Amer) Est GFR (Non-Af Amer) POC Glucose (mg/dL) 114 H 141 H Random Glucose Calcium Vancomycin Trough 10/20/17 10/20/17 10/20/17 12:15 12:15 16:02 WBC 8.3 RBC 3.40 L Hgb 11.0 L Hct 31.8 L MCV 93.6 MCH 32.3 H MCHC 34.5 RDW 13.4 Plt Count 278 PT INR APTT Sodium 138 Potassium 4.2 Chloride 99 Carbon Dioxide 36 H Anion Gap 7 L BUN 17 Creatinine 0.8 Est GFR ( Amer) > 60 Est GFR (Non-Af Amer) > 60 POC Glucose (mg/dL) 142 H Random Glucose 65 L Calcium 8.8 Vancomycin Trough Microbiology 10/13/17 19:56 Blood-Venous Blood Culture - Final 10/13/17 19:56 Blood-Venous Gram Stain - Final NO GROWTH AFTER 5 DAYS TEST NOT PERFORMED 10/13/17 19:46 Blood-Venous Blood Culture - Final 10/13/17 19:46 Blood-Venous Gram Stain - Final NO GROWTH AFTER 5 DAYS TEST NOT PERFORMED 10/10/17 19:26 Urine Urine Culture - Final No Growth (<1,000 CFU/ML) 10/10/17 16:30 Pleural Fluid Gram Stain - Final 10/10/17 16:30 Pleural Fluid Body Fluid Culture - Final Staphylococcus Sp Coag Neg 10/10/17 11:17 Sputum Gram Stain - Final 10/10/17 11:17 Sputum Sputum Culture - Final Yeast Species 10/10/17 10:40 Blood-Venous Blood Culture - Final 10/10/17 10:40 Blood-Venous Gram Stain - Final NO GROWTH AFTER 5 DAYS TEST NOT PERFORMED 10/09/17 18:00 Blood-Venous Blood Culture - Final 10/09/17 18:00 Blood-Venous Gram Stain - Final Bifidobacterium Species 10/09/17 15:00 Other: Please Indicate Gram Stain - Final 10/09/17 15:00 Other: Please Indicate Wound Culture - Final No growth. 10/16/17 12:23 Blood-Venous Blood Culture - Preliminary 10/16/17 12:23 Blood-Venous NO GROWTH AFTER 4 DAYS 10/16/17 12:23 Blood-Venous Blood Culture - Preliminary 10/16/17 12:23 Blood-Venous NO GROWTH AFTER 4 DAYS Assessment and Plan (1) Pneumothorax after biopsy Status: Acute (2) COPD exacerbation Status: Acute - Assessment and Plan (Free Text) Assessment: A/P- 76 year old male with multiple medical conditions including COPD, A.Fib, DM II s /p lung biopsy later developed pneumothorax s/p chest tuube 4 days ago , not improved and had developed left sided chest subcutaneous emphysema s/p 2 chest tubes ( now removed) s/p chest tube removal 3 days ago. afebrile leukocytosis resolved. blood cx from 10/07 - one out of 2 bottles reported coag neg staph ( most likely contaminant) repeat blood cx- neg x 1( 10/10/2017) blood cx from 10/09/2017- Bifidobacterium species ( anerobic bottle only)!!! repeat blood cx 10/13/2017 and 10/16/2017- neg x 4 OR cx- no growth pleural fluid cx- coag neg staph mycoplasma IGm- neg Urine legionellla Ag- Neg pleural fluid cx- neg sputum cx- yeast TTE report- no mention of vegetations as per report. repeat chest CT report noted. Most recent CXR reported as no acute infiltrate, no PTX, small b/l pleural effusions. Plan- the 1 out of 2 blood cx reported coag neg staph after 3 days and only on anaerobic bottle is most likely a contaminant. however since pt. has had multiple procedures continue with IV vanco , day #10 keep trough <20. the blood cx from 10/09/2017 Identified yesterday as Bifidobacterium. Bifidobacterium species could be considered as nonpathogenic bacteria, as these anaerobic, gram-positive rods are part of the physiological oral, vaginal , and intestinal janine. Bacteremia due to Bifidobacterium species has been seen at times with use of probiotics. regardless bifidobacterium species are sensitive to vancomycin . repeat blood cx - neg x 4 advise4 more days of Iv vancomycin. has completed 10 days of IV meropnem. d/c meropnem today.
[2017-10-20] MEDS: Oxycodone/Acetaminophen 5/325 mg Tab PO PRN ×2 (17:24→22:04)
[2017-10-20] MEDS: Levalbuterol 0.63 MG/3 ML Inhal Soln UD INH PRN (17:47)
[2017-10-21] MEDS: Levalbuterol 0.63 MG/3 ML Inhal Soln UD INH PRN ×2 (03:34→17:21)
[2017-10-21] MEDS: Oxycodone/Acetaminophen 5/325 mg Tab PO PRN ×2 (03:54→08:53)
[2017-10-21] MEDS: Insulin Regular 100 units/ml SC SCH ×4 (06:33→22:16)
[2017-10-21] MEDS: Tiotropium 18 mcg Cap For Inhalation INH SCH (09:50)
--- NOTE | 2017-10-21 12:56 | CP.PCM.PN ---
Subjective - Date & Time of Evaluation Date of Evaluation: 10/21/17 Time of Evaluation: 12:52 - Subjective Subjective: Seated up in bed, fimished lunch. Appears comfortable. No further hemoptysis. Cough is slightly congested, but non-productive. Breath sounds are very much diminished bilaterally/equally. Few dry rales are present in the lung bases bilaterally. No audible wheezes or bronchial breath sounds. Will repeat CXR on Monday morning. Would resume warfarin and monitor for any further hemoptysis. One specimen was sent to the lab for cytology, report should be available mid- next week. Stressed need to continue followup at [facility] after discharge from here. Objective - Vital Signs/Intake and Output Vital Signs (last 24 hours): Temp Pulse Resp BP Pulse Ox 97.5 F L 80 20 130/59 L 100 10/21/17 10:00 10/21/17 11:25 10/21/17 10:00 10/21/17 10:00 10/21/17 10:00 - Medications Medications: Current Medications Acetaminophen (Tylenol 325mg Tab) 650 mg PO Q4 PRN PRN Reason: Pain, Mild (1-3) Atorvastatin Calcium (Lipitor) 40 mg PO DAILY@2100 [facility] Last Admin: 10/20/17 21:00 Dose: 40 mg Dextrose (Dextrose 50% Inj) 0 ml IV STAT PRN; Protocol PRN Reason: Hypoglycemia Protocol Dextrose (Dextrose 50% Inj) 50 ml IVP ONCE PRN PRN Reason: Hypoglycemia Dextrose (Glutose 15) 0 gm PO ONCE PRN; Protocol PRN Reason: Hypoglycemia Protocol Famotidine (Pepcid) 20 mg PO DAILY [facility] Last Admin: 10/21/17 08:43 Dose: 20 mg Finasteride (Proscar) 5 mg PO DAILY [facility] Last Admin: 10/21/17 08:43 Dose: 5 mg Fluticasone Propionate (Flonase) 2 spr EDMUNDO DAILY [facility] Last Admin: 10/21/17 09:51 Dose: 2 spr Gabapentin (Neurontin) 300 mg PO HS [facility] Last Admin: 10/20/17 21:00 Dose: 300 mg Glucagon (Glucagen Diagnostic Kit) 0 mg IM STAT PRN; Protocol PRN Reason: Hypoglycemia Protocol Hydrochlorothiazide (Microzide) 12.5 mg PO DAILY [facility] Vancomycin HCl 750 mg/ Sodium (Chloride) 250 mls @ 250 mls/hr IVPB Q12@0500, 1700 [facility] Last Admin: 10/21/17 04:00 Dose: 250 mls/hr Insulin Detemir (Levemir) 10 units SC [facility] Last Admin: 10/18/17 23:20 Dose: Not Given Insulin Human Regular (Humulin R) 0 units SC ACHS [facility] PRN Reason: Protocol Last Admin: 10/21/17 12:05 Dose: Not Given Levalbuterol HCl (Xopenex) 0.63 mg INH RQ4 PRN PRN Reason: Shortness of Breath Last Admin: 10/21/17 03:34 Dose: 0.63 mg Losartan Potassium (Cozaar) 50 mg PO DAILY [facility] Last Admin: 10/21/17 08:45 Dose: 50 mg Ondansetron HCl (Zofran Inj) 4 mg IVP Q6 PRN PRN Reason: Nausea/Vomiting Oxycodone/Acetaminophen (Percocet 5/325 Mg Tab) 1 tab PO Q4 PRN PRN Reason: Pain, moderate (4-7) Stop: 10/23/17 21:57 Last Admin: 10/21/17 08:53 Dose: 1 tab Repaglinide (Prandin) 1 mg PO TID [facility] Last Admin: 10/21/17 12:07 Dose: 1 mg Senna/Docusate Sodium (Senokot S 50 Mg-8.6 Mg) 2 tab PO [facility] Last Admin: 10/20/17 21:01 Dose: 2 tab Tiotropium [place] (Spiriva) 18 mcg INH DAILY [facility] Last Admin: 10/21/17 09:50 Dose: 18 mcg - Labs Labs: 10/20/17 12:15 10/20/17 12:15 PT 13.5 Seconds (9.8-13.1) H 10/20/17 06:20 INR 1.2 10/20/17 06:20 APTT 46.0 Seconds (25.6-37.1) H 10/19/17 06:20 Assessment and Plan (1) Pneumothorax after biopsy Status: Acute (2) COPD (chronic obstructive pulmonary disease) Status: Chronic
--- NOTE | 2017-10-21 14:37 | CP.PCM.PCO ---
Assessment & Plan - Assessment and Plan (Free Text) Assessment: 76 YO Male admitted to TCU for de-conditioning. Per recs by Dr. Hameed, pulmonary on consult. Case discussed with inpatient attending Dr. Barry. No acute bleeding today. VS stable. -restart Warfarin 5mg PO. -Follow up INR in AM
[2017-10-21 15:42] LABS: INR 1.3; PROTHROMBIN TIME 14.8 Seconds (9.8-13.1)
[2017-10-21 15:45] LABS: PARTIAL THROMBOPLASTIN TIME 37.8 Seconds (25.6-37.1)
[2017-10-21] MEDS: Docusate-Senna 50 mg-8.6 mg Tab PO SCH (21:05)
[2017-10-22] MEDS: Levalbuterol 0.63 MG/3 ML Inhal Soln UD INH PRN ×4 (03:56→21:18)
[2017-10-22] MEDS: Insulin Regular 100 units/ml SC SCH ×4 (07:05→22:09)
[2017-10-22 07:42] LABS: INR 1.5; PROTHROMBIN TIME 16.6 Seconds (9.8-13.1)
[2017-10-22] MEDS: Tiotropium 18 mcg Cap For Inhalation INH SCH (09:00)
[2017-10-22] MEDS: Docusate-Senna 50 mg-8.6 mg Tab PO SCH (20:59)
[2017-10-23] MEDS: Levalbuterol 0.63 MG/3 ML Inhal Soln UD INH PRN ×4 (02:56→18:55)
[2017-10-23 06:26] LABS: INR 1.9; PROTHROMBIN TIME 20.9 Seconds (9.8-13.1)
[2017-10-23] MEDS: Insulin Regular 100 units/ml SC SCH ×4 (06:33→21:25)
[2017-10-23] MEDS: Tiotropium 18 mcg Cap For Inhalation INH SCH (08:35)
--- NOTE | 2017-10-23 11:12 | RAD ---
Date of service: 10/23/2017 HISTORY: pneumothorax COMPARISON: Chest radiographs 10/20/2017. TECHNIQUE: Chest PA and lateral FINDINGS: LUNGS: No interval acute infiltrate appreciated bilaterally. COPD changes are reiterated including pulmonary fibrotic pattern. Postoperative changes are reiterated at the left upper lobe with skin jayme again seen at the left hemithorax inferiorly. PLEURA: Trace bilateral pleural effusions appear stable bilaterally. CARDIOVASCULAR: Normal. OSSEOUS STRUCTURES: No significant abnormalities. VISUALIZED UPPER ABDOMEN: Normal. OTHER FINDINGS: None. IMPRESSION: Stable likely limited bilateral pleural effusions with COPD pattern reiterated. Postoperative changes again identified left upper lobe as well as skin jayme at the inferior lateral left chest wall. No interval pneumothorax appreciated.
--- NOTE | 2017-10-23 11:12 | CP.PCM.PN ---
<Rosanna Sorto - Last Filed: 10/23/17 11:18> Subjective - Date & Time of Evaluation Date of Evaluation: 10/23/17 Time of Evaluation: 09:40 - Subjective Subjective: Pulmonology note for Dr. Hameed. Mr. Luke was seen and evaluated this morning with Dr. Hameed at bedside rounds. He had just returned from X-ray of his chest, and reports that he has been feeling more short of breath. He reports he has had several more episodes of coughing up bloody sputum over the weekend. Review if image of CXR shows new density at L base, unclear etiology. Objective - Vital Signs/Intake and Output Vital Signs (last 24 hours): Temp Pulse Resp BP Pulse Ox 98.0 F 92 H 18 122/77 98 10/23/17 08:32 10/23/17 08:36 10/23/17 08:32 10/23/17 08:36 10/23/17 08:32 - Medications Medications: Current Medications Acetaminophen (Tylenol 325mg Tab) 650 mg PO Q4 PRN PRN Reason: Pain, Mild (1-3) Atorvastatin Calcium (Lipitor) 40 mg PO DAILY@2100 [facility] Last Admin: 10/22/17 20:57 Dose: 40 mg Dextrose (Dextrose 50% Inj) 0 ml IV STAT PRN; Protocol PRN Reason: Hypoglycemia Protocol Dextrose (Dextrose 50% Inj) 50 ml IVP ONCE PRN PRN Reason: Hypoglycemia Dextrose (Glutose 15) 0 gm PO ONCE PRN; Protocol PRN Reason: Hypoglycemia Protocol Famotidine (Pepcid) 20 mg PO DAILY [facility] Last Admin: 10/23/17 08:37 Dose: 20 mg Finasteride (Proscar) 5 mg PO DAILY [facility] Last Admin: 10/23/17 08:37 Dose: 5 mg Fluticasone Propionate (Flonase) 2 spr EDMUNDO DAILY [facility] Last Admin: 10/23/17 08:34 Dose: 2 spr Gabapentin (Neurontin) 300 mg PO HS [facility] Last Admin: 10/22/17 20:59 Dose: 300 mg Glucagon (Glucagen Diagnostic Kit) 0 mg IM STAT PRN; Protocol PRN Reason: Hypoglycemia Protocol Hydrochlorothiazide (Microzide) 12.5 mg PO DAILY [facility] Vancomycin HCl 750 mg/ Sodium (Chloride) 250 mls @ 250 mls/hr IVPB Q12@0500, 1700 [facility] Last Admin: 08/20/18 04:12 Dose: 250 mls/hr Insulin Detemir (Levemir) 10 units SC HS [facility] Last Admin: 10/18/17 23:20 Dose: Not Given Insulin Human Regular (Humulin R) 0 units SC ACHS [facility] PRN Reason: Protocol Last Admin: 10/23/17 06:33 Dose: Not Given Levalbuterol HCl (Xopenex) 0.63 mg INH RQ4 PRN PRN Reason: Shortness of Breath Last Admin: 10/23/17 07:56 Dose: 0.63 mg Losartan Potassium (Cozaar) 50 mg PO DAILY [facility] Last Admin: 10/23/17 08:36 Dose: 50 mg Ondansetron HCl (Zofran Inj) 4 mg IVP Q6 PRN PRN Reason: Nausea/Vomiting Oxycodone/Acetaminophen (Percocet 5/325 Mg Tab) 1 tab PO Q4 PRN PRN Reason: Pain, moderate (4-7) Stop: 10/23/17 21:57 Last Admin: 10/21/17 08:53 Dose: 1 tab Repaglinide (Prandin) 1 mg PO TID [facility] Last Admin: 10/23/17 08:35 Dose: 1 mg Fluticasone/Salmeterol (Advair Diskus 100/50) 1 puff IH BID [facility] Senna/Docusate Sodium (Senokot S 50 Mg-8.6 Mg) 2 tab PO HS [facility] Last Admin: 10/22/17 20:59 Dose: 2 tab Tiotropium [place] (Spiriva) 18 mcg INH DAILY [facility] Last Admin: 10/23/17 08:35 Dose: 18 mcg - Labs Labs: 10/20/17 12:15 10/20/17 12:15 PT 20.9 Seconds (9.8-13.1) H 10/23/17 05:45 INR 1.9 10/23/17 05:45 APTT 37.8 Seconds (25.6-37.1) H 10/21/17 15:00 - Constitutional Appears: No Acute Distress - Respiratory Exam Respiratory Exam: absent: Respiratory Distress Additional comments: Diminished, but equal breath sounds bilaterally throughout. Appears to have some increased work of breathing. - Cardiovascular Exam Cardiovascular Exam: REGULAR RHYTHM - Extremities Exam Extremities Exam: absent: Pedal Edema - Neurological Exam Neurological Exam: Alert, Oriented x3 - Skin Skin Exam: Normal Color, Warm Assessment and Plan (1) Cough with hemoptysis Assessment & Plan: Obtain CT chest today Hold coumadin Follow up cytology of sent specimens Status: Acute (2) Pneumothorax after biopsy Status: Acute (3) COPD (chronic obstructive pulmonary disease) Assessment & Plan: Resume advair Status: Chronic <Elgin Hameed - Last Filed: 10/24/17 07:09> Subjective - Subjective Subjective: seen and examined together with the residents on rounds. Physical findings and ancillary studies were reviewed. Diagnosis and plan of care were formulated after discussion. The entry in the EMR as made by the resident accurately reflects this encounter. Objective - Vital Signs/Intake and Output Vital Signs (last 24 hours): Temp Pulse Resp BP Pulse Ox 98.1 F 83 20 119/76 99 10/23/17 20:10 10/23/17 20:10 10/23/17 20:10 10/23/17 20:10 10/23/17 20:10 - Medications Medications: Current Medications Acetaminophen (Tylenol 325mg Tab) 650 mg PO Q4 PRN PRN Reason: Pain, Mild (1-3) Atorvastatin Calcium (Lipitor) 40 mg PO DAILY@2100 [facility] Last Admin: 10/23/17 21:30 Dose: 40 mg Dextrose (Dextrose 50% Inj) 0 ml IV STAT PRN; Protocol PRN Reason: Hypoglycemia Protocol Dextrose (Dextrose 50% Inj) 50 ml IVP ONCE PRN PRN Reason: Hypoglycemia Dextrose (Glutose 15) 0 gm PO ONCE PRN; Protocol PRN Reason: Hypoglycemia Protocol Famotidine (Pepcid) 20 mg PO DAILY [facility] Last Admin: 10/23/17 08:37 Dose: 20 mg Finasteride (Proscar) 5 mg PO DAILY [facility] Last Admin: 10/23/17 08:37 Dose: 5 mg Fluticasone Propionate (Flonase) 2 spr EDMUNDO DAILY [facility] Last Admin: 10/23/17 08:34 Dose: 2 spr Gabapentin (Neurontin) 300 mg PO HS [facility] Last Admin: 10/23/17 21:30 Dose: 300 mg Glucagon (Glucagen Diagnostic Kit) 0 mg IM STAT PRN; Protocol PRN Reason: Hypoglycemia Protocol Hydrochlorothiazide (Microzide) 12.5 mg PO DAILY [facility] Vancomycin HCl 750 mg/ Sodium (Chloride) 250 mls @ 250 mls/hr IVPB Q12@0500, 1700 [facility] Stop: 10/24/17 09:00 Last Admin: 10/24/17 05:43 Dose: 250 mls/hr Insulin Detemir (Levemir) 10 units SC HS [facility] Last Admin: 10/18/17 23:20 Dose: Not Given Insulin Human Regular (Humulin R) 0 units SC ACHS [facility] PRN Reason: Protocol Last Admin: 10/24/17 07:01 Dose: Not Given Levalbuterol HCl (Xopenex) 0.63 mg INH RQ4 PRN PRN Reason: Shortness of Breath Last Admin: 10/24/17 05:05 Dose: 0.63 mg Losartan Potassium (Cozaar) 50 mg PO DAILY [facility] Last Admin: 10/23/17 08:36 Dose: 50 mg Ondansetron HCl (Zofran Inj) 4 mg IVP Q6 PRN PRN Reason: Nausea/Vomiting Repaglinide (Prandin) 1 mg PO TID [facility] Last Admin: 10/23/17 17:15 Dose: 1 mg Fluticasone/Salmeterol (Advair Diskus 100/50) 1 puff IH BID [facility] Last Admin: 10/23/17 17:14 Dose: 1 puff Senna/Docusate Sodium (Senokot S 50 Mg-8.6 Mg) 2 tab PO HS [facility] Last Admin: 10/23/17 21:30 Dose: 2 tab Tiotropium [place] (Spiriva) 18 mcg INH DAILY [facility] Last Admin: 10/23/17 08:35 Dose: 18 mcg - Labs Labs: 10/20/17 12:15 10/20/17 12:15 PT 20.9 Seconds (9.8-13.1) H 10/23/17 05:45 INR 1.9 10/23/17 05:45 APTT 37.8 Seconds (25.6-37.1) H 10/21/17 15:00 Assessment and Plan (1) Pneumothorax after biopsy Status: Acute (2) COPD (chronic obstructive pulmonary disease) Status: Chronic
[2017-10-23] MEDS: Fluticasone-Salmeterol 100-50mcg Diskus IH SCH ×2 (11:29→17:14)
--- NOTE | 2017-10-23 12:42 | CP.PCM.PN ---
Subjective - Date & Time of Evaluation Date of Evaluation: 10/23/17 Time of Evaluation: 12:42 - Subjective Subjective: ID note- Pt. seen and examined today. pt's and daughter are also at his bedside. patient is in good spirits however, he explains that he has had couple episodes of blood tinged sputum and more sob during PT past 2 days. Objective - Vital Signs/Intake and Output Vital Signs (last 24 hours): Temp Pulse Resp BP Pulse Ox 98.0 F 92 H 18 122/77 98 10/23/17 08:32 10/23/17 08:36 10/23/17 08:32 10/23/17 08:36 10/23/17 08:32 - Medications Medications: Current Medications Acetaminophen (Tylenol 325mg Tab) 650 mg PO Q4 PRN PRN Reason: Pain, Mild (1-3) Atorvastatin Calcium (Lipitor) 40 mg PO DAILY@2100 [facility] Last Admin: 10/22/17 20:57 Dose: 40 mg Dextrose (Dextrose 50% Inj) 0 ml IV STAT PRN; Protocol PRN Reason: Hypoglycemia Protocol Dextrose (Dextrose 50% Inj) 50 ml IVP ONCE PRN PRN Reason: Hypoglycemia Dextrose (Glutose 15) 0 gm PO ONCE PRN; Protocol PRN Reason: Hypoglycemia Protocol Famotidine (Pepcid) 20 mg PO DAILY [facility] Last Admin: 10/23/17 08:37 Dose: 20 mg Finasteride (Proscar) 5 mg PO DAILY [facility] Last Admin: 10/23/17 08:37 Dose: 5 mg Fluticasone Propionate (Flonase) 2 spr EDMUNDO DAILY [facility] Last Admin: 10/23/17 08:34 Dose: 2 spr Gabapentin (Neurontin) 300 mg PO [facility] Last Admin: 10/22/17 20:59 Dose: 300 mg Glucagon (Glucagen Diagnostic Kit) 0 mg IM STAT PRN; Protocol PRN Reason: Hypoglycemia Protocol Hydrochlorothiazide (Microzide) 12.5 mg PO DAILY [facility] Vancomycin HCl 750 mg/ Sodium (Chloride) 250 mls @ 250 mls/hr IVPB Q12@0500, 1700 [facility] Last Admin: 10/23/17 04:12 Dose: 250 mls/hr Insulin Detemir (Levemir) 10 units SC [facility] Last Admin: 10/18/17 23:20 Dose: Not Given Insulin Human Regular (Humulin R) 0 units SC [facility] PRN Reason: Protocol Last Admin: 10/23/17 11:30 Dose: 2 unit Levalbuterol HCl (Xopenex) 0.63 mg INH RQ4 PRN PRN Reason: Shortness of Breath Last Admin: 10/23/17 07:56 Dose: 0.63 mg Losartan Potassium (Cozaar) 50 mg PO DAILY [facility] Last Admin: 10/23/17 08:36 Dose: 50 mg Ondansetron HCl (Zofran Inj) 4 mg IVP Q6 PRN PRN Reason: Nausea/Vomiting Oxycodone/Acetaminophen (Percocet 5/325 Mg Tab) 1 tab PO Q4 PRN PRN Reason: Pain, moderate (4-7) Stop: 10/23/17 21:57 Last Admin: 10/21/17 08:53 Dose: 1 tab Repaglinide (Prandin) 1 mg PO TID [facility] Last Admin: 10/23/17 12:29 Dose: 1 mg Fluticasone/Salmeterol (Advair Diskus 100/50) 1 puff IH BID [facility] Last Admin: 10/23/17 11:29 Dose: 1 puff Senna/Docusate Sodium (Senokot S 50 Mg-8.6 Mg) 2 tab PO HS [facility] Last Admin: 10/22/17 20:59 Dose: 2 tab Tiotropium [place] (Spiriva) 18 mcg INH DAILY [facility] Last Admin: 10/23/17 08:35 Dose: 18 mcg - Labs Labs: - Additional Findings Additional findings: - Constitutional Appears: NAD - Head Exam Head Exam: ATRAUMATIC - Eye Exam Eye Exam: EOMI, PERRL - ENT Exam ENT Exam: Normal Oropharynx - Neck Exam Neck exam: Positive for: Full Rom - Respiratory Exam Additional comments: no subcutaneous emphysema felt anymore breath sounds heard b/l, slightly muffled at the bases no wheezing - Cardiovascular Exam Cardiovascular Exam: S1S2 +S1, +S2 - GI/Abdominal Exam GI & Abdominal Exam: Normal Bowel Sounds, Soft Additional comments: NT, ND - Extremities Exam Extremities exam: Positive for: normal inspection Additional comments: no edema B/L LE - Neurological Exam Neurological exam: Alert, Oriented x 3 Laboratory Results - last 72 hr 10/20/17 10/20/17 10/21/17 16:02 20:46 06:00 PT INR APTT POC Glucose (mg/dL) 142 H 117 H 99 10/21/17 10/21/17 10/21/17 10:55 15:00 16:13 PT 14.8 H INR 1.3 APTT 37.8 H POC Glucose (mg/dL) 143 H 146 H 10/21/17 10/22/17 10/23/17 21:28 05:30 05:45 PT 16.6 H 20.9 H INR 1.5 1.9 APTT POC Glucose (mg/dL) 82 Accession No. : [id number] Patient Name / ID : FATUMA Jenkins / [id number] Exam Date : 10/23/2017 09:06:42 ( Approved ) Study Comment : Sex / Age : M / 76Y Creator : Delfin Billings MD Dictator : Delfin Billings MD Lay Ups Assembler : Oil Well Drilling Manager : Delfin Billings MD Approver2 : Report Date : 10/23/2017 11:05:29 My Comment : Date of service: 10/23/2017 HISTORY: pneumothorax COMPARISON: Chest radiographs 10/20/2017. TECHNIQUE: Chest PA and lateral FINDINGS: LUNGS: No interval acute infiltrate appreciated bilaterally. COPD changes are reiterated including pulmonary fibrotic pattern. Postoperative changes are reiterated at the left upper lobe with skin jayme again seen at the left hemithorax inferiorly. PLEURA: Trace bilateral pleural effusions appear stable bilaterally. CARDIOVASCULAR: Normal. OSSEOUS STRUCTURES: No significant abnormalities. VISUALIZED UPPER ABDOMEN: Normal. OTHER FINDINGS: None. IMPRESSION: Stable likely limited bilateral pleural effusions with COPD pattern reiterated. Postoperative changes again identified left upper lobe as well as skin jayme at the inferior lateral left chest wall. No interval pneumothorax appreciate Assessment and Plan (1) Pneumothorax after biopsy Status: Acute (2) COPD exacerbation Status: Acute - Assessment and Plan (Free Text) Assessment: A/P- 76 year old male with multiple medical conditions including COPD, A.Fib, DM II s /p lung biopsy later developed pneumothorax s/p chest tuube 4 days ago , not improved and had developed left sided chest subcutaneous emphysema s/p 2 chest tubes ( now removed) afebrile leukocytosis resolved. blood cx from 10/07 - one out of 2 bottles reported coag neg staph ( most likely contaminant) repeat blood cx- neg x 1( 10/10/2017) blood cx from 10/09/2017- Bifidobacterium species ( anerobic bottle only)!!! repeat blood cx 10/13/2017 and 10/16/2017- neg x 4 OR cx- no growth pleural fluid cx- coag neg staph mycoplasma IGm- neg Urine legionellla Ag- Neg pleural fluid cx- neg sputum cx- yeast TTE report- no mention of vegetations as per report. Most recent CXR reported as no acute infiltrate, no PTX, small b/l pleural effusions. Plan- the 1 out of 2 blood cx reported coag neg staph after 3 days and only on anaerobic bottle is most likely a contaminant. however since pt. has had multiple procedures continue with IV vanco , day #13 keep trough <20. the blood cx from 10/09/2017 Identified as Bifidobacterium. Bifidobacterium species could be considered as nonpathogenic bacteria, as these anaerobic, gram-positive rods are part of the physiological oral, vaginal , and intestinal janine. Bacteremia due to Bifidobacterium species has been seen at times with use of probiotics. regardless bifidobacterium species are sensitive to vancomycin . repeat blood cx - neg x 4 advise 1 more days of Iv vancomycin. has completed 10 days of IV meropnem. hemoptysis evaluation as per basket braider. sputum sent for cytology as per pt's nurse. all above d/w patient and his and they verbalize full understanding of all above.
[2017-10-23] MEDS: Docusate-Senna 50 mg-8.6 mg Tab PO SCH (21:30)
[2017-10-24] MEDS: Levalbuterol 0.63 MG/3 ML Inhal Soln UD INH PRN ×4 (05:05→17:31)
[2017-10-24] MEDS: Insulin Regular 100 units/ml SC SCH ×4 (07:01→21:48)
[2017-10-24 07:25] LABS: INR 1.7; PROTHROMBIN TIME 19.4 Seconds (9.8-13.1)
--- NOTE | 2017-10-24 08:34 | CP.PCM.PN ---
Subjective - Date & Time of Evaluation Date of Evaluation: 10/24/17 Time of Evaluation: 08:20 - Subjective Subjective: Patient seen and evaluated during morning. No acute events overnight. Patient had and episode of SOB this morning after he went to bathroom. After receiving Xopenex SOB improved. No episode of hemoptysis since yesterday. Patient in mild dyspnea with talking, laboured breathing and fatigued. Denies any CP, headache, palpitation, dizziness, abdominal pain, N/V/D. Objective - Vital Signs/Intake and Output Vital Signs (last 24 hours): Temp Pulse Resp BP Pulse Ox 97.7 F 88 20 150/72 99 10/24/17 07:46 10/24/17 07:46 10/24/17 07:46 10/24/17 07:46 10/24/17 07:46 - Medications Medications: Current Medications Acetaminophen (Tylenol 325mg Tab) 650 mg PO Q4 PRN PRN Reason: Pain, Mild (1-3) Atorvastatin Calcium (Lipitor) 40 mg PO DAILY@2100 [facility] Last Admin: 10/23/17 21:30 Dose: 40 mg Dextrose (Dextrose 50% Inj) 0 ml IV STAT PRN; Protocol PRN Reason: Hypoglycemia Protocol Dextrose (Dextrose 50% Inj) 50 ml IVP ONCE PRN PRN Reason: Hypoglycemia Dextrose (Glutose 15) 0 gm PO ONCE PRN; Protocol PRN Reason: Hypoglycemia Protocol Famotidine (Pepcid) 20 mg PO DAILY [facility] Last Admin: 10/23/17 08:37 Dose: 20 mg Finasteride (Proscar) 5 mg PO DAILY [facility] Last Admin: 10/23/17 08:37 Dose: 5 mg Fluticasone Propionate (Flonase) 2 spr EDMUNDO DAILY [facility] Last Admin: 10/23/17 08:34 Dose: 2 spr Gabapentin (Neurontin) 300 mg PO HS [facility] Last Admin: 10/23/17 21:30 Dose: 300 mg Glucagon (Glucagen Diagnostic Kit) 0 mg IM STAT PRN; Protocol PRN Reason: Hypoglycemia Protocol Hydrochlorothiazide (Microzide) 12.5 mg PO DAILY [facility] Vancomycin HCl 750 mg/ Sodium (Chloride) 250 mls @ 250 mls/hr IVPB Q12@0500, 1700 [facility] Stop: 10/24/17 09:00 Last Admin: 10/24/17 05:43 Dose: 250 mls/hr Insulin Detemir (Levemir) 10 units SC HS [facility] Last Admin: 10/18/17 23:20 Dose: Not Given Insulin Human Regular (Humulin R) 0 units SC ACHS [facility] PRN Reason: Protocol Last Admin: 10/24/17 07:01 Dose: Not Given Levalbuterol HCl (Xopenex) 0.63 mg INH RQ4 PRN PRN Reason: Shortness of Breath Last Admin: 10/24/17 08:22 Dose: 0.63 mg Losartan Potassium (Cozaar) 50 mg PO DAILY [facility] Last Admin: 10/23/17 08:36 Dose: 50 mg Ondansetron HCl (Zofran Inj) 4 mg IVP Q6 PRN PRN Reason: Nausea/Vomiting Repaglinide (Prandin) 1 mg PO TID [facility] Last Admin: 10/23/17 17:15 Dose: 1 mg Fluticasone/Salmeterol (Advair Diskus 100/50) 1 puff IH BID [facility] Last Admin: 10/23/17 17:14 Dose: 1 puff Senna/Docusate Sodium (Senokot S 50 Mg-8.6 Mg) 2 tab PO HS [facility] Last Admin: 10/23/17 21:30 Dose: 2 tab Tiotropium [place] (Spiriva) 18 mcg INH DAILY [facility] Last Admin: 10/23/17 08:35 Dose: 18 mcg - Labs Labs: 10/20/17 12:15 10/20/17 12:15 PT 19.4 Seconds (9.8-13.1) H 10/24/17 06:45 INR 1.7 10/24/17 06:45 APTT 37.8 Seconds (25.6-37.1) H 10/21/17 15:00 - Constitutional Appears: Non-toxic, No Acute Distress - Head Exam Head Exam: ATRAUMATIC, NORMAL INSPECTION, NORMOCEPHALIC - Eye Exam Eye Exam: Normal appearance, PERRL - ENT Exam ENT Exam: Mucous Membranes Moist - Respiratory Exam Respiratory Exam: Rhonchi. absent: Accessory Muscle Use, Decreased Breath Sounds, Prolonged Expiratory Phase, Respiratory Distress - Cardiovascular Exam Cardiovascular Exam: Irregular Rhythm, +S1, +S2 - GI/Abdominal Exam GI & Abdominal Exam: Soft, Normal Bowel Sounds. absent: Rigid, Tenderness - Extremities Exam Extremities Exam: absent: Pedal Edema, Tenderness - Neurological Exam Neurological Exam: Alert, Awake, Normal Gait, Oriented x3 - Psychiatric Exam Psychiatric exam: Normal Affect, Normal Mood - Skin Skin Exam: Dry, Intact, Normal Color Assessment and Plan - Assessment and Plan (Free Text) Assessment: 76 year old male w/ hx of HTN, COPD, DM2, atrial fibrillation, left pneumothorax s/p left ant. and post. chest tube placement who was transferred to TCU for PT/OT. Plan: Hx of recent Left lung Pneumothorax -CT Chest 10/16/17: trace residual left penumothorax, increase in plural effusions. -s/p left anterior and posterior chest tubes placement and removal -Pulmonology Consult appreciated: Dr. Hameed, will follow recommendations -On 3L NC O2 supplementation, monitor respiratory status -CXR: No acute changes compared to previous CXR. -CT Chest: 10/23/17: Further increase in pleural effusions now [id number] in volume, Resolution of left chest wall subcutaneous emphysema. A moderately large bulla is partially fluid-filled in the interval at the right middle lobe base with COPD changes otherwise reiterated and stable appearing. Biapical nodular changes are identified as well as fibrosis with underlying nodule difficult to exclude at left apex. Small noncalcified nodules are again seen at the right upper and lower lobes. -Right sided Thoracentesis once INR 1.5 -Bronchoscopy on 10/26/17 Hx of Blood cultures positive for gram+ cocci -10/07/2017 GPC+ in anaerobic sample, possible contaminant. 10/09 blood culture gram + bacilli -repeat blood cultures no growth -Completed Meropenum and Vancomycin Rx. - As per Bead Cutter Dr. Mg: On Echo: Good LV function, EF: 60-65%, There is no evidence of thickening or vegetation on any of the valves. Bloody sputum/Hemoptysis - Grossly blood, Sent sputum for culture - Pulmonary consult on boards: Recommendations appreciated. - Hold Lovenox and Coumadin as per Dr. Hameed - CXR: No acute changes compared to previous CXR. - CBC: HGB 11.0, Unremarkable otherwise. - Will monitor status Atrial Fibrillation -Chronic, asymptomatic -Was previously on digoxin, but this was d/c by Dr. Last in May due to detection of brief pauses EKG -no beta blockers as patient has limited respiratory reserve -Hold coumadin as per Pulmonary COPD -severe, chronic -Pulmonology consult appreciated: Dr. Hameed -Xopenex INH RQ4 PRN -C/W Spiriva 18 mcg INH QD, hold Advair Diskus 500/50 1 puff IH Q12: per pulmonology -C/W Ventolin HFA 2 puff IH Q6 PRN -monitor respiratory status Left Lung Nodule, s/p Lung Biopsy on 10/04/17 at [facility] -bx showed cryptococcal organized pneumonia; per Dr. Hameed who spoke w/ Faustino Noriega -F/U w/ Faustino Noriega after discharge for further evaluation. Diabetes Mellitus type 2 -chronic, controlled -Repaglinide decreased to 1mg PO BID due to hypoglycemia -continue with home medications: Levemir 10 SC [facility]HS. Insulin regular coverage scale added -Hypoglycemic treatment protocol in place -Renzo CHILDS -Last HBA1C: 7.7 on 05/2017 Hypertension -chronic, controlled -c/w Losartan 50 mg PO QD -HCTZ held as BP was running low -monitor BP HLD -chronic, controlled -continue home medication: atorvastatin 40mg DVT Prophylaxis -SCDs -Lovenox and Coumadin on hold -Discussed risks and benefits w/ criminal intelligence analyst and ldr nurse Diet: Heart Healthy Code Status: -Full Code -Next of kin: , [place] [phone]
[2017-10-24] MEDS: Fluticasone-Salmeterol 100-50mcg Diskus IH SCH ×2 (08:43→16:16)
[2017-10-24] MEDS: Tiotropium 18 mcg Cap For Inhalation INH SCH (08:46)
[2017-10-24 10:39] LABS: BLOOD UREA NITROGEN 17 mg/dl (9-20); CALCIUM 9.1 mg/dL (8.4-10.2); GFR NON-AFRICAN AMERICAN > 60
--- NOTE | 2017-10-24 10:43 | CP.PCM.PN ---
Subjective - Date & Time of Evaluation Date of Evaluation: 10/24/17 Time of Evaluation: 10:39 - Subjective Subjective: Continues to have hemoptysis, dark red blood being expectorated, small volume. Had an episode of increased SOB this morning after walking to the bathroom. CT chest reviewed, official report pending. Has developed bilateral pleural effusions, stable HAYDE lesion and fluid filled bulla at the right base. Will request review by IR for potential thoracentesis on the right and plan for flexible bronchoscopy on . Objective - Vital Signs/Intake and Output Vital Signs (last 24 hours): Temp Pulse Resp BP Pulse Ox 97.7 F 88 20 150/72 99 10/24/17 07:46 10/24/17 08:43 10/24/17 07:46 10/24/17 08:43 10/24/17 07:46 - Medications Medications: Current Medications Acetaminophen (Tylenol 325mg Tab) 650 mg PO Q4 PRN PRN Reason: Pain, Mild (1-3) Atorvastatin Calcium (Lipitor) 40 mg PO DAILY@2100 [facility] Last Admin: 10/23/17 21:30 Dose: 40 mg Dextrose (Dextrose 50% Inj) 0 ml IV STAT PRN; Protocol PRN Reason: Hypoglycemia Protocol Dextrose (Dextrose 50% Inj) 50 ml IVP ONCE PRN PRN Reason: Hypoglycemia Dextrose (Glutose 15) 0 gm PO ONCE PRN; Protocol PRN Reason: Hypoglycemia Protocol Famotidine (Pepcid) 20 mg PO DAILY [facility] Last Admin: 10/24/17 08:46 Dose: 20 mg Finasteride (Proscar) 5 mg PO DAILY [facility] Last Admin: 10/24/17 08:46 Dose: 5 mg Fluticasone Propionate (Flonase) 2 spr EDMUNDO DAILY [facility] Last Admin: 10/24/17 08:49 Dose: Not Given Gabapentin (Neurontin) [address] [facility] Last Admin: 10/23/17 21:30 Dose: 300 mg Glucagon (Glucagen Diagnostic Kit) 0 mg IM STAT PRN; Protocol PRN Reason: Hypoglycemia Protocol Hydrochlorothiazide (Microzide) 12.5 mg PO DAILY [facility] Insulin Detemir (Levemir) [address] [facility] Last Admin: 10/18/17 23:20 Dose: Not Given Insulin Human Regular (Humulin R) 0 units SC [facility] PRN Reason: Protocol Last Admin: 10/24/17 07:01 Dose: Not Given Levalbuterol HCl (Xopenex) 0.63 mg INH RQ4 PRN PRN Reason: Shortness of Breath Last Admin: 10/24/17 08:22 Dose: 0.63 mg Losartan Potassium (Cozaar) 50 mg PO DAILY [facility] Last Admin: 10/24/17 08:43 Dose: 50 mg Ondansetron HCl (Zofran Inj) 4 mg IVP Q6 PRN PRN Reason: Nausea/Vomiting Repaglinide (Prandin) 1 mg PO TID [facility] Last Admin: 10/24/17 08:46 Dose: 1 mg Fluticasone/Salmeterol (Advair Diskus 100/50) 1 puff IH BID [facility] Last Admin: 10/24/17 08:43 Dose: 1 puff Senna/Docusate Sodium (Senokot S 50 Mg-8.6 Mg) 2 tab PO HS [facility] Last Admin: 10/23/17 21:30 Dose: 2 tab Tiotropium [place] (Spiriva) 18 mcg INH DAILY [facility] Last Admin: 10/24/17 08:46 Dose: 18 mcg - Labs Labs: 10/20/17 12:15 10/20/17 12:15 PT 19.4 Seconds (9.8-13.1) H 10/24/17 06:45 INR 1.7 10/24/17 06:45 APTT 37.8 Seconds (25.6-37.1) H 10/21/17 15:00 Assessment and Plan (1) Pneumothorax after biopsy Status: Acute (2) COPD (chronic obstructive pulmonary disease) Status: Chronic (3) Hemoptysis Status: Acute
[2017-10-24] MEDS ORDERED: Sodium Chloride 3% for Inhalation 4 ML VIAL.NEB IH PRN (12:10)
[2017-10-24] MEDS: Docusate-Senna 50 mg-8.6 mg Tab PO SCH (21:17)
[2017-10-25] MEDS: Levalbuterol 0.63 MG/3 ML Inhal Soln UD INH PRN ×4 (02:38→20:19)
[2017-10-25 06:18] LABS: HEMOGLOBIN 10.6 g/dL (12.0-18.0); MEAN CELL VOLUME 93.4 fl (80.0-94.0); MEAN CORPUSCULAR HEMOGLOBIN 32.4 pg (27.0-31.0); MEAN CORPUSCULAR HGB CONC 34.6 g/dL (33.0-37.0); RBC 3.29 Mil/uL (4.40-5.90); RED CELL DISTRIBUTION WIDTH 13.5 % (11.5-14.5); WHITE BLOOD COUNT 9.9 K/uL (4.8-10.8)
[2017-10-25 06:36] LABS: INR 1.5; PROTHROMBIN TIME 16.3 Seconds (9.8-13.1)
[2017-10-25 06:38] LABS: PARTIAL THROMBOPLASTIN TIME 36.1 Seconds (25.6-37.1)
[2017-10-25 06:44] LABS: ALB/GLOB RATIO 1.2 (1.0-2.1); ALBUMIN 3.1 g/dL (3.5-5.0); ALT/SGPT 91 U/L (21-72); AST/SGOT 76 U/L (17-59); BLOOD UREA NITROGEN 17 mg/dl (9-20); CALCIUM 8.9 mg/dL (8.4-10.2); GFR NON-AFRICAN AMERICAN > 60
[2017-10-25] MEDS: Insulin Regular 100 units/ml SC SCH ×4 (06:46→21:12)
[2017-10-25] MEDS: Fluticasone-Salmeterol 100-50mcg Diskus IH SCH ×2 (08:29→16:50)
[2017-10-25] MEDS: Tiotropium 18 mcg Cap For Inhalation INH SCH (08:29)
--- NOTE | 2017-10-25 11:27 | CP.PCM.PN ---
Subjective - Date & Time of Evaluation Date of Evaluation: 10/25/17 Time of Evaluation: 09:40 - Subjective Subjective: Pulmonology note for Dr. Hameed Mr. Luke was seen/evaluated this morning at bedside, he was sitting in bed in no acute distress. Wearing NC at 3L. Relates that he had another episode of hemoptysis this morning, still bloody, and still has increased shortness of breath when walking. CT chest official report noted increase in pleural effusions now mild-to- moderate in volume, appearing free at the right and at least partly loculated at the left. For thoracentesis today; and flexible bronchoscopy tomorrow. Sputum culture and cytology pending. Objective - Vital Signs/Intake and Output Vital Signs (last 24 hours): Temp Pulse Resp BP Pulse Ox 97 F L 91 H 21 137/74 96 10/25/17 08:00 10/25/17 08:31 10/25/17 08:00 10/25/17 08:31 10/25/17 08:00 - Medications Medications: Current Medications Acetaminophen (Tylenol 325mg Tab) 650 mg PO Q4 PRN PRN Reason: Pain, Mild (1-3) Atorvastatin Calcium (Lipitor) 40 mg PO DAILY@2100 [facility] Last Admin: 10/24/17 21:17 Dose: 40 mg Dextrose (Dextrose 50% Inj) 0 ml IV STAT PRN; Protocol PRN Reason: Hypoglycemia Protocol Dextrose (Dextrose 50% Inj) 50 ml IVP ONCE PRN PRN Reason: Hypoglycemia Dextrose (Glutose 15) 0 gm PO ONCE PRN; Protocol PRN Reason: Hypoglycemia Protocol Famotidine (Pepcid) 20 mg PO DAILY [facility] Last Admin: 10/25/17 08:31 Dose: 20 mg Finasteride (Proscar) 5 mg PO DAILY [facility] Last Admin: 10/25/17 08:31 Dose: 5 mg Fluticasone Propionate (Flonase) 2 spr EDMUNDO DAILY [facility] Last Admin: 10/25/17 08:30 Dose: 2 spr Gabapentin (Neurontin) 300 mg PO [facility] Last Admin: 10/24/17 21:17 Dose: 300 mg Glucagon (Glucagen Diagnostic Kit) 0 mg IM STAT PRN; Protocol PRN Reason: Hypoglycemia Protocol Hydrochlorothiazide (Microzide) 12.5 mg PO DAILY [facility] Insulin Detemir (Levemir) 10 units SC [facility] Last Admin: 10/18/17 23:20 Dose: Not Given Insulin Human Regular (Humulin R) 0 units SC [facility] PRN Reason: Protocol Last Admin: 10/25/17 06:46 Dose: Not Given Levalbuterol HCl (Xopenex) 0.63 mg INH RQ4 PRN PRN Reason: Shortness of Breath Last Admin: 10/25/17 09:27 Dose: 0.63 mg Losartan Potassium (Cozaar) 50 mg PO DAILY [facility] Last Admin: 10/25/17 08:31 Dose: 50 mg Ondansetron HCl (Zofran Inj) 4 mg IVP Q6 PRN PRN Reason: Nausea/Vomiting Repaglinide (Prandin) 1 mg PO TID [facility] Last Admin: 10/25/17 08:31 Dose: 1 mg Fluticasone/Salmeterol (Advair Diskus 100/50) 1 puff IH BID [facility] Last Admin: 10/25/17 08:29 Dose: 1 puff Senna/Docusate Sodium (Senokot S 50 Mg-8.6 Mg) 2 tab PO HS [facility] Last Admin: 10/24/17 21:17 Dose: 2 tab Tiotropium [place] (Spiriva) 18 mcg INH DAILY [facility] Last Admin: 10/25/17 08:29 Dose: 18 mcg - Labs Labs: 10/25/17 05:40 10/25/17 05:40 PT 16.3 Seconds (9.8-13.1) H 10/25/17 05:40 INR 1.5 10/25/17 05:40 APTT 36.1 Seconds (25.6-37.1) 10/25/17 05:40 - Constitutional Appears: No Acute Distress - ENT Exam ENT Exam: Mucous Membranes Moist - Respiratory Exam Respiratory Exam: NORMAL BREATHING PATTERN. absent: Respiratory Distress Additional comments: equal but diminished bilaterally - Cardiovascular Exam Cardiovascular Exam: REGULAR RHYTHM - Extremities Exam Extremities Exam: Normal Inspection. absent: Calf Tenderness - Neurological Exam Neurological Exam: Alert, Oriented x3 - Skin Skin Exam: Normal Color, Warm Assessment and Plan (1) Cough with hemoptysis Assessment & Plan: sputum cytology and culture pending flexible bronchoscopy planned for tomorrow Status: Acute (2) Pleural effusion Assessment & Plan: pending thoracentesis today Status: Acute (3) Pneumothorax after biopsy Status: Acute (4) COPD (chronic obstructive pulmonary disease) Status: Chronic
--- NOTE | 2017-10-25 18:38 | CP.PCM.PN ---
Subjective - Date & Time of Evaluation Date of Evaluation: 10/25/17 Time of Evaluation: 18:38 - Subjective Subjective: ID note- Patient seen and examined today. Patient states he had thoracenthesis earlier today and straw colored fluid was removed about 700 CC. he states his sob is less post thoracentheiss. he states he had 3 bouts of hemoptysis earlier today. denies any fever. Objective - Vital Signs/Intake and Output Vital Signs (last 24 hours): Temp Pulse Resp BP Pulse Ox 97.9 F 92 H 20 137/67 96 10/25/17 15:44 10/25/17 15:44 10/25/17 15:44 10/25/17 15:44 10/25/17 15:44 - Medications Medications: Current Medications Acetaminophen (Tylenol 325mg Tab) 650 mg PO Q4 PRN PRN Reason: Pain, Mild (1-3) Atorvastatin Calcium (Lipitor) 40 mg PO DAILY@2100 [facility] Last Admin: 10/24/17 21:17 Dose: 40 mg Dextrose (Dextrose 50% Inj) 0 ml IV STAT PRN; Protocol PRN Reason: Hypoglycemia Protocol Dextrose (Dextrose 50% Inj) 50 ml IVP ONCE PRN PRN Reason: Hypoglycemia Dextrose (Glutose 15) 0 gm PO ONCE PRN; Protocol PRN Reason: Hypoglycemia Protocol Famotidine (Pepcid) 20 mg PO DAILY [facility] Last Admin: 10/25/17 08:31 Dose: 20 mg Finasteride (Proscar) 5 mg PO DAILY [facility] Last Admin: 10/25/17 08:31 Dose: 5 mg Fluticasone Propionate (Flonase) 2 spr EDMUNDO DAILY [facility] Last Admin: 10/25/17 08:30 Dose: 2 spr Gabapentin (Neurontin) 300 mg PO [facility] Last Admin: 10/24/17 21:17 Dose: 300 mg Glucagon (Glucagen Diagnostic Kit) 0 mg IM STAT PRN; Protocol PRN Reason: Hypoglycemia Protocol Hydrochlorothiazide (Microzide) 12.5 mg PO DAILY [facility] Insulin Detemir (Levemir) 10 units SC [facility] Last Admin: 10/18/17 23:20 Dose: Not Given Insulin Human Regular (Humulin R) 0 units SC [facility] PRN Reason: Protocol Last Admin: 10/25/17 16:49 Dose: 1 unit Levalbuterol HCl (Xopenex) 0.63 mg INH RQ4 PRN PRN Reason: Shortness of Breath Last Admin: 10/25/17 15:56 Dose: 0.63 mg Losartan Potassium (Cozaar) 50 mg PO DAILY [facility] Last Admin: 10/25/17 08:31 Dose: 50 mg Ondansetron HCl (Zofran Inj) 4 mg IVP Q6 PRN PRN Reason: Nausea/Vomiting Repaglinide (Prandin) 1 mg PO TID [facility] Last Admin: 10/25/17 16:51 Dose: 1 mg Fluticasone/Salmeterol (Advair Diskus 100/50) 1 puff IH BID [facility] Last Admin: 10/25/17 16:50 Dose: 1 puff Senna/Docusate Sodium (Senokot S 50 Mg-8.6 Mg) 2 tab PO HS [facility] Last Admin: 10/24/17 21:17 Dose: 2 tab Tiotropium [place] (Spiriva) 18 mcg INH DAILY [facility] Last Admin: 10/25/17 08:29 Dose: 18 mcg - Labs Labs: - Additional Findings Additional findings: - Constitutional Appears: NAD - Head Exam Head Exam: ATRAUMATIC - Eye Exam Eye Exam: EOMI, PERRL - ENT Exam ENT Exam: Normal Oropharynx - Neck Exam Neck exam: Positive for: Full Rom - Respiratory Exam Additional comments: breath sounds heard b/l, slightly muffled at the bases no wheezing - Cardiovascular Exam Cardiovascular Exam: S1S2 +S1, +S2 - GI/Abdominal Exam GI & Abdominal Exam: Normal Bowel Sounds, Soft Additional comments: NT, ND - Extremities Exam Extremities exam: Positive for: normal inspection Additional comments: no edema B/L LE - Neurological Exam Neurological exam: Alert, Oriented x 3 Laboratory Results - last 72 hr 10/20/17 10/21/17 10/21/17 20:46 06:00 10:55 WBC RBC Hgb Hct MCV MCH MCHC RDW Plt Count PT INR APTT Sodium Potassium Chloride Carbon Dioxide Anion Gap BUN Creatinine Est GFR ( Amer) Est GFR (Non-Af Amer) POC Glucose (mg/dL) 117 H 99 143 H Random Glucose Calcium Total Bilirubin AST ALT Alkaline Phosphatase Lactate Dehydrogenase Total Protein Albumin Globulin Albumin/Globulin Ratio 10/21/17 10/21/17 10/21/17 16:13 21:28 22:28 WBC RBC Hgb Hct MCV MCH MCHC RDW Plt Count PT INR APTT Sodium Potassium Chloride Carbon Dioxide Anion Gap BUN Creatinine Est GFR ( Amer) Est GFR (Non-Af Amer) POC Glucose (mg/dL) 146 H 82 120 H Random Glucose Calcium Total Bilirubin AST ALT Alkaline Phosphatase Lactate Dehydrogenase Total Protein Albumin Globulin Albumin/Globulin Ratio 10/22/17 10/22/17 10/22/17 06:03 10:51 16:24 WBC RBC Hgb Hct MCV MCH MCHC RDW Plt Count PT INR APTT Sodium Potassium Chloride Carbon Dioxide Anion Gap BUN Creatinine Est GFR ( Amer) Est GFR (Non-Af Amer) POC Glucose (mg/dL) 99 183 H 116 H Random Glucose Calcium Total Bilirubin AST ALT Alkaline Phosphatase Lactate Dehydrogenase Total Protein Albumin Globulin Albumin/Globulin Ratio 10/22/17 10/23/17 10/23/17 21:17 05:45 06:28 WBC RBC Hgb Hct MCV MCH MCHC RDW Plt Count PT 20.9 H INR 1.9 APTT Sodium Potassium Chloride Carbon Dioxide Anion Gap BUN Creatinine Est GFR ( Amer) Est GFR (Non-Af Amer) POC Glucose (mg/dL) 73 121 H Random Glucose Calcium Total Bilirubin AST ALT Alkaline Phosphatase Lactate Dehydrogenase Total Protein Albumin Globulin Albumin/Globulin Ratio 10/23/17 10/23/17 10/23/17 10:26 16:40 21:13 WBC RBC Hgb Hct MCV MCH MCHC RDW Plt Count PT INR APTT Sodium Potassium Chloride Carbon Dioxide Anion Gap BUN Creatinine Est GFR ( Amer) Est GFR (Non-Af Amer) POC Glucose (mg/dL) 217 H 103 123 H Random Glucose Calcium Total Bilirubin AST ALT Alkaline Phosphatase Lactate Dehydrogenase Total Protein Albumin Globulin Albumin/Globulin Ratio 10/24/17 10/24/17 10/24/17 05:07 06:45 10:07 WBC RBC Hgb Hct MCV MCH MCHC RDW Plt Count PT 19.4 H INR 1.7 APTT Sodium 140 Potassium 4.3 Chloride 100 Carbon Dioxide 35 H Anion Gap 9 L BUN 17 Creatinine 0.8 Est GFR ( Amer) > 60 Est GFR (Non-Af Amer) > 60 POC Glucose (mg/dL) 81 Random Glucose 193 H Calcium 9.1 Total Bilirubin AST ALT Alkaline Phosphatase Lactate Dehydrogenase Total Protein Albumin Globulin Albumin/Globulin Ratio 10/24/17 10/24/17 10/24/17 11:18 15:53 20:40 WBC RBC Hgb Hct MCV MCH MCHC RDW Plt Count PT INR APTT Sodium Potassium Chloride Carbon Dioxide Anion Gap BUN Creatinine Est GFR ( Amer) Est GFR (Non-Af Amer) POC Glucose (mg/dL) 160 H 142 H 90 Random Glucose Calcium Total Bilirubin AST ALT Alkaline Phosphatase Lactate Dehydrogenase Total Protein Albumin Globulin Albumin/Globulin Ratio 10/25/17 10/25/17 10/25/17 05:40 05:40 05:40 WBC 9.9 RBC 3.29 L Hgb 10.6 L Hct 30.7 L MCV 93.4 MCH 32.4 H MCHC 34.6 RDW 13.5 Plt Count 328 PT 16.3 H INR 1.5 APTT 36.1 Sodium 142 Potassium 4.2 Chloride 101 Carbon Dioxide 36 H Anion Gap 9 L BUN 17 Creatinine 0.9 Est GFR ( Amer) > 60 Est GFR (Non-Af Amer) > 60 POC Glucose (mg/dL) Random Glucose 100 Calcium 8.9 Total Bilirubin 0.6 AST 76 H D ALT 91 H D Alkaline Phosphatase 73 Lactate Dehydrogenase 551 Total Protein 5.7 L Albumin 3.1 L Globulin 2.6 Albumin/Globulin Ratio 1.2 10/25/17 05:50 WBC RBC Hgb Hct MCV MCH MCHC RDW Plt Count PT INR APTT Sodium Potassium Chloride Carbon Dioxide Anion Gap BUN Creatinine Est GFR ( Amer) Est GFR (Non-Af Amer) POC Glucose (mg/dL) 97 Random Glucose Calcium Total Bilirubin AST ALT Alkaline Phosphatase Lactate Dehydrogenase Total Protein Albumin Globulin Albumin/Globulin Ratio Microbiology 10/24/17 12:44 Sputum Gram Stain - Final 10/24/17 12:44 Sputum Sputum Culture - Preliminary Gram Negative Michael Accession No. : [id number] Patient Name / ID : FATUMA Jenkins / [id number] Exam Date : 10/23/2017 12:01:33 ( Approved ) Study Comment : Sex / Age : M / 76Y Creator : Delfin Billings MD Dictator : Delfin Billings MD Material Cutter : Surveyor Chain Helper : Delfin Billings MD Approver2 : Report Date : 10/24/2017 16:00:11 My Comment : Date of service: 10/23/2017 PROCEDURE: CT Chest without contrast HISTORY: J95.811 COMPARISON: Contrast chest CT 10/16/2017. TECHNIQUE: Contiguous axial images were obtained through the chest without intravenous contrast enhancement. Sagittal and coronal reconstructions were performed. Radiation dose (DLP): None mGy-cm. This CT exam was performed using one or more of the following dose reduction techniques: Automated exposure control, adjustment of the mA and/or kV according to patient size, and/or use of iterative reconstruction technique. FINDINGS: LUNGS: The two prior left chest tubes have been removed with no pneumothorax appreciated. Emphysematous changes at the left chest wall. Nerve resolved as well as at the left axilla/ deep subclavian space. No pneumothorax identified. Extensive COPD changes are reiterated with stable small nodular densities identified at the right apex and right lower lobe. Compressive atelectasis affects the right lower lobe without defined infiltrate appreciated. Fluid is seen partially filling a larger right bulla at the right middle lobe posteriorly. Limited compression atelectasis identified at the left lower lobe. No definitive left-sided pulmonary infiltrate. Central airways appear clear. Left apical scarring reiterated with underlying spiculated mass difficult to exclude once again. MEDIASTINUM: Unremarkable thoracic aorta. No aneurysm. Normal sized heart. Main pulmonary artery unremarkable. No vascular congestion. Mild mediastinal lymphadenopathy is stable. Coronary artery calcifications are reiterated. PLEURA: [id number] bilateral pleural effusions are identified appearing free at the right and partially loculated at the left lower lobe. BONES: No fracture. No destructive lesion. UPPER ABDOMEN: A small lucent nodule medial to the left adrenal gland is stable representing either small lymph node or possible exophytic benign adrenal adenoma. OTHER FINDINGS: None. IMPRESSION: 1. Apparent removal of 2 left chest tubes with no pneumothorax. Further increase in pleural effusions now [id number] in volume, appearing free at the right and at least partly loculated at the left. Resolution of left chest wall subcutaneous emphysema. 2. A moderately large bulla is partially fluid-filled in the interval at the right middle lobe base with COPD changes otherwise reiterated and stable appearing. Biapical nodular changes are identified as well as fibrosis with underlying nodule difficult to exclude at left apex. Small noncalcified nodules are again seen at the right upper and lower lobes. Assessment and Plan (1) Pneumothorax after biopsy Status: Acute (2) COPD exacerbation Status: Acute - Assessment and Plan (Free Text) Assessment: A/P- 76 year old male with multiple medical conditions including COPD, A.Fib, DM II s /p lung biopsy later developed pneumothorax s/p chest tuube 4 days ago , not improved and had developed left sided chest subcutaneous emphysema s/p 2 chest tubes ( now removed) s/p thoracenthesis today fluid cell count- fluid cell count wbc-460 20 % pmn RBC-940 afebrile sputum cx from 10/24/2017- GNR prelim leukocytosis resolved. blood cx from 10/07 - one out of 2 bottles reported coag neg staph ( most likely contaminant) repeat blood cx- neg x 1( 10/10/2017) blood cx from 10/09/2017- Bifidobacterium species ( anerobic bottle only)!!! repeat blood cx 10/13/2017 and 10/16/2017- neg x 4 OR cx- no growth pleural fluid cx- coag neg staph mycoplasma IGm- neg Urine legionellla Ag- Neg previous pleural fluid cx- neg previous sputum cx- yeast TTE report- no mention of vegetations as per report. Most recent CXR reported as no acute infiltrate, no PTX, small b/l pleural effusions. Plan- has completed 14 days of IV vancomycin for the blood cx from 10/09/2017 Identified as Bifidobacterium. repeat blood cx - neg x 4 had completed 10 days of IV meropnem. hemoptysis evaluation as per raw material planner. new sputum cx - GNR prelim could be nosocomial as pt. was already omn 10 days of IV meropenem empirically. await final ID and sensitivity of the sputum cx prior to initialting another antibiotic since pt. is afebrile and has normal wbc count. await bronch results as well( pt. is scheduled for bronch tomm). await pleural fluid from thoracentheiss culture and cytology report as well. all above d/w patient and his and they verbalize full understanding of all above.
[2017-10-25] MEDS: Docusate-Senna 50 mg-8.6 mg Tab PO SCH (21:12)
[2017-10-26] MEDS: Levalbuterol 0.63 MG/3 ML Inhal Soln UD INH PRN ×2 (05:14→13:01)
[2017-10-26] MEDS: Insulin Regular 100 units/ml SC SCH ×4 (06:49→22:00)
[2017-10-26] MEDS ORDERED: Lactated Ringer's 1,000 ML IV SCH (08:45)
[2017-10-26] MEDS: Fluticasone-Salmeterol 100-50mcg Diskus IH SCH ×2 (13:07→17:36)
[2017-10-26] MEDS: Tiotropium 18 mcg Cap For Inhalation INH SCH (13:08)
[2017-10-26] MEDS: Levalbuterol 0.63 MG/3 ML Inhal Soln UD INH SCH ×2 (16:10→19:25)
[2017-10-26 20:31] VITALS: O2SAT 100
--- NOTE | 2017-10-26 21:38 | CARD ---
APPROVED REPORT Date of service: 10/26/2017 EKG Measurement Heart [id number] <Conclusion> Atrial fibrillation Low voltage QRS Septal infarct, age undetermined Lateral infarct, age undetermined Abnormal ECG
[2017-10-26] MEDS: Docusate-Senna 50 mg-8.6 mg Tab PO SCH (22:00)
[2017-10-27] MEDS: Levalbuterol 0.63 MG/3 ML Inhal Soln UD INH SCH ×2 (01:02→07:14)
[2017-10-27] MEDS: Levalbuterol 0.63 MG/3 ML Inhal Soln UD INH PRN ×2 (02:31→10:57)
[2017-10-27 08:28] VITALS: BP 162/64; PULSE 85; RESP 18; TEMP 97.4
[2017-10-27] MEDS: Fluticasone-Salmeterol 100-50mcg Diskus IH SCH (08:41)
[2017-10-27] MEDS: Insulin Regular 100 units/ml SC SCH ×2 (08:41→12:18)
[2017-10-27] MEDS: Tiotropium 18 mcg Cap For Inhalation INH SCH (08:45)
--- NOTE | 2017-10-27 08:52 | CP.PCM.PN ---
Subjective - Date & Time of Evaluation Date of Evaluation: 10/27/17 Time of Evaluation: 08:15 - Subjective Subjective: Patient Objective - Vital Signs/Intake and Output Vital Signs (last 24 hours): Temp Pulse Resp BP Pulse Ox 97.4 F L 85 18 162/64 H 100 10/27/17 08:28 10/27/17 08:28 10/27/17 08:28 10/27/17 08:28 10/27/17 08:28 - Medications Medications: Current Medications Acetaminophen (Tylenol 325mg Tab) 650 mg PO Q4 PRN PRN Reason: Pain, Mild (1-3) Atorvastatin Calcium (Lipitor) 40 mg PO DAILY@2100 [facility] Last Admin: 10/26/17 20:59 Dose: 40 mg Dextrose (Dextrose 50% Inj) 0 ml IV STAT PRN; Protocol PRN Reason: Hypoglycemia Protocol Dextrose (Dextrose 50% Inj) 50 ml IVP ONCE PRN PRN Reason: Hypoglycemia Dextrose (Glutose 15) 0 gm PO ONCE PRN; Protocol PRN Reason: Hypoglycemia Protocol Famotidine (Pepcid) 20 mg PO DAILY [facility] Last Admin: 10/26/17 13:36 Dose: 20 mg Finasteride (Proscar) 5 mg PO DAILY [facility] Last Admin: 10/26/17 13:36 Dose: 5 mg Fluticasone Propionate (Flonase) 2 spr EDMUNDO DAILY [facility] Last Admin: 10/26/17 13:36 Dose: 2 spr Gabapentin (Neurontin) 300 mg PO HS [facility] Last Admin: 10/26/17 20:59 Dose: 300 mg Glucagon (Glucagen Diagnostic Kit) 0 mg IM STAT PRN; Protocol PRN Reason: Hypoglycemia Protocol Hydrochlorothiazide (Microzide) 12.5 mg PO DAILY [facility] Ertapenem 1 gm/ Sodium (Chloride) 100 mls @ 100 mls/hr IVPB DAILY [facility] PRN Reason: Protocol Stop: 10/29/17 16:16 Last Admin: 10/26/17 17:53 Dose: 100 mls/hr Insulin Detemir (Levemir) 10 units SC HS [facility] Last Admin: 10/18/17 23:20 Dose: Not Given Insulin Human Regular (Humulin R) 0 units SC [facility] PRN Reason: Protocol Last Admin: 10/26/17 22:00 Dose: Not Given Levalbuterol HCl (Xopenex) 0.63 mg INH RQ4 PRN PRN Reason: Shortness of Breath Last Admin: 10/27/17 02:31 Dose: 0.63 mg Levalbuterol HCl (Xopenex) 0.63 mg INH RQ6 [facility] Last Admin: 10/27/17 07:14 Dose: 0.63 mg Losartan Potassium (Cozaar) 50 mg PO DAILY [facility] Last Admin: 10/26/17 13:35 Dose: 50 mg Ondansetron HCl (Zofran Inj) 4 mg IVP Q6 PRN PRN Reason: Nausea/Vomiting Repaglinide (Prandin) 1 mg PO TID [facility] Last Admin: 10/26/17 17:36 Dose: 1 mg Fluticasone/Salmeterol (Advair Diskus 100/50) 1 puff IH BID [facility] Last Admin: 10/26/17 17:36 Dose: 1 puff Senna/Docusate Sodium (Senokot S 50 Mg-8.6 Mg) 2 tab PO HS [facility] Last Admin: 10/26/17 22:00 Dose: Not Given Tiotropium [place] (Spiriva) 18 mcg INH DAILY [facility] Last Admin: 10/26/17 13:08 Dose: Not Given - Labs Labs: 10/25/17 05:40 10/25/17 05:40 PT 16.3 Seconds (9.8-13.1) H 10/25/17 05:40 INR 1.5 10/25/17 05:40 APTT 36.1 Seconds (25.6-37.1) 10/25/17 05:40
--- NOTE | 2017-10-27 09:21 | CP.PCM.PN ---
Subjective - Date & Time of Evaluation Date of Evaluation: 10/27/17 Time of Evaluation: 08:25 - Subjective Subjective: Still coughing up dark (old ) blood Has severe effort intolerence (can not walk 10-15 feet to the bath room) A Fib at 80-90 BPM BP 136/70 mm Hg No central or peripheral cyanosis No gallop, no rales JVP flat, no b\pedal oedema Yesterday's EKG reviewed Will withold oral anticoagulation till hemoptysis persists Will check INR tomorrow. Objective - Vital Signs/Intake and Output Vital Signs (last 24 hours): Temp Pulse Resp BP Pulse Ox 97.4 F L 85 18 162/64 H 100 10/27/17 08:28 10/27/17 08:42 10/27/17 08:28 10/27/17 08:42 10/27/17 08:28 - Medications Medications: Current Medications Acetaminophen (Tylenol 325mg Tab) 650 mg PO Q4 PRN PRN Reason: Pain, Mild (1-3) Atorvastatin Calcium (Lipitor) 40 mg PO DAILY@2100 [facility] Last Admin: 10/26/17 20:59 Dose: 40 mg Dextrose (Dextrose 50% Inj) 0 ml IV STAT PRN; Protocol PRN Reason: Hypoglycemia Protocol Dextrose (Dextrose 50% Inj) 50 ml IVP ONCE PRN PRN Reason: Hypoglycemia Dextrose (Glutose 15) 0 gm PO ONCE PRN; Protocol PRN Reason: Hypoglycemia Protocol Famotidine (Pepcid) 20 mg PO DAILY [facility] Last Admin: 10/27/17 08:44 Dose: 20 mg Finasteride (Proscar) 5 mg PO DAILY [facility] Last Admin: 10/27/17 08:45 Dose: 5 mg Fluticasone Propionate (Flonase) 2 spr EDMUNDO DAILY [facility] Last Admin: 10/27/17 08:43 Dose: 2 spr Gabapentin (Neurontin) 300 mg PO HS [facility] Last Admin: 10/26/17 20:59 Dose: 300 mg Glucagon (Glucagen Diagnostic Kit) 0 mg IM STAT PRN; Protocol PRN Reason: Hypoglycemia Protocol Hydrochlorothiazide (Microzide) 12.5 mg PO DAILY [facility] Ertapenem 1 gm/ Sodium (Chloride) 100 mls @ 100 mls/hr IVPB DAILY [facility] PRN Reason: Protocol Stop: 10/29/17 16:16 Last Admin: 10/27/17 08:44 Dose: 100 mls/hr Insulin Detemir (Levemir) 10 units SC HS [facility] Last Admin: 10/18/17 23:20 Dose: Not Given Insulin Human Regular (Humulin R) 0 units SC [facility] PRN Reason: Protocol Last Admin: 10/27/17 08:41 Dose: Not Given Levalbuterol HCl (Xopenex) 0.63 mg INH RQ4 PRN PRN Reason: Shortness of Breath Last Admin: 10/27/17 02:31 Dose: 0.63 mg Levalbuterol HCl (Xopenex) 0.63 mg INH RQ6 [facility] Last Admin: 10/27/17 07:14 Dose: 0.63 mg Losartan Potassium (Cozaar) 50 mg PO DAILY [facility] Last Admin: 10/27/17 08:42 Dose: 50 mg Ondansetron HCl (Zofran Inj) 4 mg IVP Q6 PRN PRN Reason: Nausea/Vomiting Repaglinide (Prandin) 1 mg PO TID [facility] Last Admin: 10/27/17 08:45 Dose: 1 mg Fluticasone/Salmeterol (Advair Diskus 100/50) 1 puff IH BID [facility] Last Admin: 10/27/17 08:41 Dose: 1 puff Senna/Docusate Sodium (Senokot S 50 Mg-8.6 Mg) 2 tab PO HS [facility] Last Admin: 10/26/17 22:00 Dose: Not Given Tiotropium [place] (Spiriva) 18 mcg INH DAILY [facility] Last Admin: 10/27/17 08:45 Dose: 18 mcg - Labs Labs: 10/25/17 05:40 10/25/17 05:40 PT 16.3 Seconds (9.8-13.1) H 10/25/17 05:40 INR 1.5 10/25/17 05:40 APTT 36.1 Seconds (25.6-37.1) 10/25/17 05:40
--- NOTE | 2017-10-27 11:47 | CP.PCM.PN ---
Subjective - Date & Time of Evaluation Date of Evaluation: 10/27/17 Time of Evaluation: 11:41 - Subjective Subjective: Seen on rounds in TCU. Has been more dyspneic with minimal exertion. Desaturated into the mid 70's today, received aerosol therapy with gradual recovery. Appears more dyspneixc, even at rest. + respiratory recruitment with retractions. Breath sounds diminished with scattered sibilant and sonorous rhonchi. Few scattered high pitched expiratory wheezes bilaterally. Will discharge to the ER and admit to acute medicine for increaqsed treatment. Patient is not appropriate for rehab at the present time. Objective - Vital Signs/Intake and Output Vital Signs (last 24 hours): Temp Pulse Resp BP Pulse Ox 97.4 F L 85 18 162/64 H 100 10/27/17 08:28 10/27/17 08:42 10/27/17 08:28 10/27/17 08:42 10/27/17 08:28 - Medications Medications: Current Medications Acetaminophen (Tylenol 325mg Tab) 650 mg PO Q4 PRN PRN Reason: Pain, Mild (1-3) Atorvastatin Calcium (Lipitor) 40 mg PO DAILY@2100 [facility] Last Admin: 10/26/17 20:59 Dose: 40 mg Dextrose (Dextrose 50% Inj) 0 ml IV STAT PRN; Protocol PRN Reason: Hypoglycemia Protocol Dextrose (Dextrose 50% Inj) 50 ml IVP ONCE PRN PRN Reason: Hypoglycemia Dextrose (Glutose 15) 0 gm PO ONCE PRN; Protocol PRN Reason: Hypoglycemia Protocol Famotidine (Pepcid) 20 mg PO DAILY [facility] Last Admin: 10/27/17 08:44 Dose: 20 mg Finasteride (Proscar) 5 mg PO DAILY [facility] Last Admin: 10/27/17 08:45 Dose: 5 mg Fluticasone Propionate (Flonase) 2 spr EDMUNDO DAILY [facility] Last Admin: 10/27/17 08:43 Dose: 2 spr Gabapentin (Neurontin) 300 mg PO HS [facility] Last Admin: 10/26/17 20:59 Dose: 300 mg Glucagon (Glucagen Diagnostic Kit) 0 mg IM STAT PRN; Protocol PRN Reason: Hypoglycemia Protocol Hydrochlorothiazide (Microzide) 12.5 mg PO DAILY [facility] Ertapenem 1 gm/ Sodium (Chloride) 100 mls @ 100 mls/hr IVPB DAILY ULISES PRN Reason: Protocol Stop: 10/29/17 16:16 Last Admin: 10/27/17 08:44 Dose: 100 mls/hr Insulin Detemir (Levemir) 10 units SC HS [facility] Last Admin: 10/18/17 23:20 Dose: Not Given Insulin Human Regular (Humulin R) 0 units SC ACHS ULISES PRN Reason: Protocol Last Admin: 10/27/17 08:41 Dose: Not Given Levalbuterol HCl (Xopenex) 0.63 mg INH RQ4 PRN PRN Reason: Shortness of Breath Last Admin: 10/27/17 10:57 Dose: 0.63 mg Losartan Potassium (Cozaar) 50 mg PO DAILY [facility] Last Admin: 10/27/17 08:42 Dose: 50 mg Ondansetron HCl (Zofran Inj) 4 mg IVP Q6 PRN PRN Reason: Nausea/Vomiting Repaglinide (Prandin) 1 mg PO ACBD [facility] Fluticasone/Salmeterol (Advair Diskus 100/50) 1 puff IH BID [facility] Last Admin: 10/27/17 08:41 Dose: 1 puff Senna/Docusate Sodium (Senokot S 50 Mg-8.6 Mg) 2 tab PO HS [facility] Last Admin: 10/26/17 22:00 Dose: Not Given Tiotropium [place] (Spiriva) 18 mcg INH DAILY [facility] Last Admin: 10/27/17 08:45 Dose: 18 mcg - Labs Labs: 10/25/17 05:40 10/25/17 05:40 PT 16.3 Seconds (9.8-13.1) H 10/25/17 05:40 INR 1.5 10/25/17 05:40 APTT 36.1 Seconds (25.6-37.1) 10/25/17 05:40 Assessment and Plan (1) Pneumothorax after biopsy Status: Acute (2) COPD (chronic obstructive pulmonary disease) Status: Chronic (3) Hemoptysis Status: Acute
--- NOTE | 2017-10-27 13:47 | RAD ---
Date of service: 10/27/2017 HISTORY: SOB COMPARISON: 10/26/2017 FINDINGS: LUNGS: Bibasilar opacities are moderately improved. No new opacity elsewhere. PLEURA: No significant pleural effusion identified, no pneumothorax apparent. CARDIOVASCULAR: Normal. OSSEOUS STRUCTURES: No significant abnormalities. VISUALIZED UPPER ABDOMEN: Normal. OTHER FINDINGS: None. IMPRESSION: Improving bibasilar opacities.
--- NOTE | 2017-10-27 14:29 | CP.PCM.DIS ---
Provider - Provider Date of Admission: 10/17/17 18:20 Attending physician: Susan Galvez MD Primary care physician: Dr. Susan Galvez Consults: Telemarketing Supervisor - Dr. Hameed Top Lift Compressor -Dr. 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 Hospital Course - Lab Results Lab Results: Micro Results 10/24/17 12:44 Sputum Gram Stain - Final 10/24/17 12:44 Sputum Sputum Culture - Final Enterobacter Cloacae Ssp Cloac Most Recent Lab Values WBC 9.9 K/uL (4.8-10.8) 10/25/17 05:40 RBC 3.29 Mil/uL (4.40-5.90) L 10/25/17 05:40 Hgb 10.6 g/dL (12.0-18.0) L 10/25/17 05:40 Hct 30.7 % (35.0-51.0) L 10/25/17 05:40 MCV 93.4 fl (80.0-94.0) 10/25/17 05:40 MCH 32.4 pg (27.0-31.0) H 10/25/17 05:40 MCHC 34.6 g/dL (33.0-37.0) 10/25/17 05:40 RDW 13.5 % (11.5-14.5) 10/25/17 05:40 Plt Count 328 K/uL (130-400) 10/25/17 05:40 PT 16.3 Seconds (9.8-13.1) H 10/25/17 05:40 INR 1.5 10/25/17 05:40 APTT 36.1 Seconds (25.6-37.1) 10/25/17 05:40 Sodium 142 mmol/l (132-148) 10/25/17 05:40 Potassium 4.2 MMOL/L (3.6-5.0) 10/25/17 05:40 Chloride 101 mmol/L (98-107) 10/25/17 05:40 Carbon Dioxide 36 mmol/L (22-30) H 10/25/17 05:40 Anion Gap 9 (10-20) L 10/25/17 05:40 BUN 17 mg/dl (9-20) 10/25/17 05:40 Creatinine 0.9 mg/dl (0.8-1.5) 10/25/17 05:40 Est GFR ( Amer) > 60 10/25/17 05:40 Est GFR (Non-Af Amer) > 60 10/25/17 05:40 POC Glucose (mg/dL) 90 mg/dL (65-110) 10/27/17 06:00 Random Glucose 100 mg/dL (75-110) 10/25/17 05:40 Calcium 8.9 mg/dL (8.4-10.2) 10/25/17 05:40 Total Bilirubin 0.6 mg/dl (0.2-1.3) 10/25/17 05:40 AST 76 U/L (17-59) H D 10/25/17 05:40 ALT 91 U/L (21-72) H D 10/25/17 05:40 Alkaline Phosphatase 73 U/L (38-126) 10/25/17 05:40 Lactate Dehydrogenase 551 U/L (313-618) 10/25/17 05:40 Total Protein 5.7 G/DL (6.3-8.2) L 10/25/17 05:40 Albumin 3.1 g/dL (3.5-5.0) L 10/25/17 05:40 Globulin 2.6 gm/dL (2.2-3.9) 10/25/17 05:40 Albumin/Globulin Ratio 1.2 (1.0-2.1) 10/25/17 05:40 Vancomycin Trough 10.8 ug/mL (5.0-10.0) H 10/19/17 06:20 - Hospital Course Hospital Course: 76 year old male w/ hx of HTN, COPD, DM2, atrial fibrillation, organizing pneumonia diagnosed on Bx transferred from ICU to TCU for PT/OT following hospitalization for left pneumothorax which developed s/p lung biopsy at [facility] [place] which required left anterior and posterior chest tubes placements for 8 days. Patient monitored with serial CXR and CT scan which showed increasing bilateral pleural effusion. Patient also underwent right sided thoracentesis and flexible bronchoscopy without significant improvement in dyspnea. Today patient's dyspnea worsened with minimal improvement and desaturated to mid 70s. Will transfer patient to ER for acute dyspnea. Discharge Exam - Head Exam Head Exam: ATRAUMATIC, NORMAL INSPECTION, NORMOCEPHALIC - Eye Exam Eye Exam: PERRL - ENT Exam ENT Exam: Mucous Membranes Moist - Respiratory Exam Respiratory Exam: Decreased Breath Sounds, Rhonchi, Wheezes. absent: Accessory Muscle Use, Chest Wall Tenderness, Rales - Cardiovascular Exam Cardiovascular Exam: Irregular Rhythm, +S1, +S2 - GI/Abdominal Exam GI & Abdominal Exam: Normal Bowel Sounds. absent: Distended, Firm, Rigid - Neurological Exam Neurological exam: Alert, Normal Gait, Oriented x3 - Psychiatric Exam Psychiatric exam: Normal Affect, Normal Mood - Skin Skin Exam: Dry, Intact, Normal Color Discharge Plan - Follow Up Plan Condition: GUARDED Disposition: TRANS TO OBS Additional Instructions: Transfer from TCU to ER for acute dyspnea
--- NOTE | 2017-10-27 16:22 | CARD ---
APPROVED REPORT Date of service: 10/27/2017 EKG Measurement Heart [id number] <Conclusion> Atrial fibrillation with rapid ventricular response with premature ventricular or aberrantly conducted complexes Septal infarct, age undetermined Abnormal ECG
== END 2017-10-27 12:20 | disposition short-term general hospital (02) | DRG 199 ==
LOC: H.TCU 18:20
PROVIDERS: ADMIT Family Medicine; ATTEND Family Medicine
PROC: 3E0F7GC Introduction of Other Therapeutic Substance into Respiratory Tract, Via Natural or Artificial Opening (ICD-10-PCS; principal; 2017-10-17)
PROC: F08Z4FZ Home Management Treatment using Assistive, Adaptive, Supportive or Protective Equipment (ICD-10-PCS; 2017-10-17)
DX: J95.811 Postprocedural pneumothorax (principal); A41.9 Sepsis, unspecified organism; J18.9 Pneumonia, unspecified organism; R04.2 Hemoptysis; J44.0 Chronic obstructive pulmonary disease with (acute) lower respiratory infection; J44.1 Chronic obstructive pulmonary disease with (acute) exacerbation; J90 Pleural effusion, not elsewhere classified; Y84.9 Medical procedure, unspecified as the cause of abnormal reaction of the patient, or of later complication, without mention of misadventure at the time of the procedure; N18.9 Chronic kidney disease, unspecified; N40.1 Benign prostatic hyperplasia with lower urinary tract symptoms; T79.7XXD Traumatic subcutaneous emphysema, subsequent encounter; Z79.01 Long term (current) use of anticoagulants; Z80.8 Family history of malignant neoplasm of other organs or systems; Z82.49 Family history of ischemic heart disease and other diseases of the circulatory system; Z82.5 Family history of asthma and other chronic lower respiratory diseases; Z83.3 Family history of diabetes mellitus; Z87.01 Personal history of pneumonia (recurrent); Z87.891 Personal history of nicotine dependence; E11.22 Type 2 diabetes mellitus with diabetic chronic kidney disease; E78.00 Pure hypercholesterolemia, unspecified; I12.9 Hypertensive chronic kidney disease with stage 1 through stage 4 chronic kidney disease, or unspecified chronic kidney disease; I48.91 Unspecified atrial fibrillation; J84.89 Other specified interstitial pulmonary diseases; R06.00 Dyspnea, unspecified

== ENCOUNTER → 2017-10-25 | Day surgery (SDC) | payer MEDICARE ==
[2017-10-07 16:17] VITALS: PULSE 61
[~2017-10-25] MED LIST: EPINEPHrine 1 mg/ml (1:1000) Inj ONE; Etomidate 20 mg/10ml Inj IV ONE; Lidocaine 1% 5ml Abboject IV ONE; Lidocaine 2% Jelly (30 ml) ONE; Midazolam 2 MG/2 ML VIAL ONE
[2017-10-25 11:14] VITALS: BMI 22.0
--- NOTE | 2017-10-25 14:00 | CP.SDSHP ---
Same Day Surgery H & P - History Proposed Procedure: US guided right thoracentesis Pre-Op Diagnosis: Pleural effusion, dyspnea - Allergies Allergies: Allergies hydromorphone Allergy (Mild, Verified 10/25/17 11:11) RASH - Impression Impression: Pt with bilateral pleural effusion referred for right thoracentesis. Plan US guided right thoracentesis. Pt. Evaluated Today:Candidate for Anesthesia & Procedure: No - Date & Time Date: 10/25/17 Time: 13:30 Short Stay Discharge - Short Stay Discharge Admitting Diagnosis/Reason for Visit: [id number] Disposition: HOME/ ROUTINE
--- NOTE | 2017-10-25 14:01 | PCM.SURG1 ---
Surgeon's Initial Post Op Note - Surgeon's Notes Surgeon: Wing Lundberg MD [employer] Sticker: NONE Pre-Operative Diagnosis: Pleural effusion Operative Findings: US showed moderate right pleural effusion Post-Operative Diagnosis: Pleural effusion Operation Performed: US guided right thoracentesis Specimen/Specimens Removed: 800 cc of clear yellow fluid Estimated Blood Loss: EBL {In ML}: 0 Blood Products Given: N/A Drains Used: No Drains Post-Op Condition: Fair Date of Surgery/Procedure: 10/25/17 Time of Surgery/Procedure: 14:00
[2017-10-25 14:08] VITALS: RESP 22; O2SAT 100
[2017-10-25 14:17] LABS: BODY FLUID TYPE PLEURAL/THORACENTESI
[2017-10-25 14:25] LABS: GLUCOSE,BODY FLUID 95 mg/dL (NONE ESTABLISHED)
[2017-10-25 14:30] LABS: TOTAL PROTEIN,BODY FLUID < 2.0 g/dL (NONE ESTABLISHED)
[2017-10-25 14:53] VITALS: BP 147/80; PULSE 89; TEMP 98.5
[2017-10-25 16:26] LABS: BF GROSS APPEARANCE SL CLOUDY (CLEAR)
[2017-10-25 16:27] LABS: BODY FLUID MONO/MACROPHAGE 45 % (0-0); BODY FLUID TOTAL COUNT 100 (0-0)
--- NOTE | 2017-10-26 10:18 | RAD ---
Date of service: 10/25/2017 PROCEDURE: CHEST RADIOGRAPH, 1 VIEW HISTORY: Status post right thoracentesis. COMPARISON: 10/23/2017 FINDINGS: LUNGS: There is a rounded focal infiltrate or loculation at the right lung base and a small effusion at the left lung base. Parenchymal scarring is seen in both upper lobes. PLEURA: No pneumothorax or pleural fluid seen. CARDIOVASCULAR: Normal. OSSEOUS STRUCTURES: No significant abnormalities. VISUALIZED UPPER ABDOMEN: Normal. OTHER FINDINGS: None. IMPRESSION: There is a rounded focal infiltrate or loculation at the right lung base and a small effusion at the left lung base. Parenchymal scarring is seen in both upper lobes.
--- NOTE | 2017-10-26 13:34 | US ---
PROCEDURE: Date of procedure: 10/25/2017 Procedure: 1. Ultrasound-guided Right thoracentesis, CPT 04781 Medications: 6cc 1% Lidocaine HISTORY: Right pleural effusion, shortness of breath TECHNIQUE: Following informed consent ,the Patients' right chest was marked. Procedure time-out was called, and the patient was placed in the sitting position and limited ultrasound showed a large right effusion. The patient's right back was prepped and draped in the usual sterile fashion. After the skin was anesthetized with lidocaine, a drainage catheter was advanced under ultrasound guidance into the pleural space. Ultrasound-guided thoracentesis was performed. A total of 800 cubic centimeters of straw-colored fluid removed without complication. A Xeroform dressing was applied. IMPRESSION: Ultrasound guided Right thoracentesis. There were no immediate complications.
== END | disposition home or self-care (01) ==
LOC: H.OPSURG 10:26
PROVIDERS: ATTEND Internal Medicine Pulmonary Disease
DX: J90 Pleural effusion, not elsewhere classified (principal)

== ENCOUNTER → 2017-10-26 | Day surgery (SDC) | payer MEDICARE ==
[2017-10-07 16:17] VITALS: PULSE 61
[2017-10-25 11:14] VITALS: BMI 22.0
[~2017-10-26] MED LIST changes: -EPINEPHrine 1 mg/ml (1:1000) Inj ONE; -Etomidate 20 mg/10ml Inj IV ONE; +Lactated Ringer's 1,000 ML IV ONE; +Lactated Ringer's 1,000 ML IV SCH; -Lidocaine 1% 5ml Abboject IV ONE; +Lidocaine 1% Inj (20ml) INFIL ONE; +Lidocaine 2% GEL TOP ONE; -Lidocaine 2% Jelly (30 ml) ONE; +Lidocaine 2% Jelly (5 ml) TOP ONE; -Midazolam 2 MG/2 ML VIAL ONE
--- NOTE | 2017-10-26 07:50 | CP.SDSHP ---
Same Day Surgery H & P - History Proposed Procedure: FLEXIBLE BRONCHOSCOPY Pre-Op Diagnosis: HEMOPTYSIS - Previous Medical/Surgical History Cardiac: Other (ATRIAL FIBRILLATION) Pulmonary: Emphysema/COPD Endocrine/Metabolic: ETOH Abuse (REMOTE) Pain: 0. No Pain - Allergies Allergies: Allergies hydromorphone Allergy (Mild, Verified 10/25/17 11:11) RASH - Physical Exam Vital Signs: Vital Signs 10/26/17 07:30 Temperature 98.6 F Pulse Rate 89 Respiratory 22 Rate Blood Pressure 144/72 O2 Sat by Pulse 95 Oximetry Mental Status: Alert & Oriented x3 Neuro: WNL Heart: Other (DISTANT HS) Lungs: Other (DIMINSHED BREATH SOUNDS BILATERALLY) GI: WNL Social History: Smoking (FORMER), Alcohol (FORMER), Drug Use (OCCASIONAL RECREATIONAL CANNABIS) - Impression Impression: HEMOPTYSIS Pt. Evaluated Today:Candidate for Anesthesia & Procedure: Yes - Date & Time Date: 10/26/17 Time: 07:52 Short Stay Discharge - Short Stay Discharge Admitting Diagnosis/Reason for Visit: R04.2 Disposition: HOME/ ROUTINE
--- NOTE | 2017-10-26 10:05 | RAD ---
Date of service: 10/26/2017 HISTORY: S/P Bronchoscopy COMPARISON: CT 10/23/2017 and x-ray 10/25/2017 FINDINGS: LUNGS: Bibasilar infiltrates and effusions are unchanged. PLEURA: As above CARDIOVASCULAR: Normal. OSSEOUS STRUCTURES: No significant abnormalities. VISUALIZED UPPER ABDOMEN: Normal. OTHER FINDINGS: None. IMPRESSION: Bibasilar infiltrates and pleural effusions are unchanged.
[2017-10-26 11:03] VITALS: RESP 20; O2SAT 99
[2017-10-26 11:52] VITALS: BP 166/81; PULSE 90; TEMP 98.4
--- NOTE | 2017-10-27 08:40 | CP.SDSHP ---
Same Day Surgery H & P - Allergies Allergies: Allergies hydromorphone Allergy (Mild, Verified 10/25/17 11:11) RASH Short Stay Discharge - Short Stay Discharge Admitting Diagnosis/Reason for Visit: R04.2 Disposition: REHAB FACILITY/REHAB UNIT Follow-up: Continued pre-bronchoscopy medical regimen. Progress Note/Discharge Note with Instructions: Tolerated bronchoscopy. Post-procedure CXR stable. Discharge back to TCU.
== END ==
LOC: H.OPSURG 06:28
PROVIDERS: ATTEND Internal Medicine Pulmonary Disease
DX: R04.2 Hemoptysis (principal); I48.91 Unspecified atrial fibrillation; J44.9 Chronic obstructive pulmonary disease, unspecified; E11.9 Type 2 diabetes mellitus without complications; E78.5 Hyperlipidemia, unspecified; I10 Essential (primary) hypertension; F10.10 Alcohol abuse, uncomplicated

== ENCOUNTER 2017-10-27 12:33 | Inpatient (IN) | payer MEDICARE ==
[2017-10-27 12:33] VITALS: PULSE 61; BMI 22.0
[2017-10-27] MEDS ORDERED: Levalbuterol 0.63 MG/3 ML Inhal Soln UD IH ONE (13:11)
--- NOTE | 2017-10-27 13:15 | ED PDOC ---
HPI: SOB/CHF/COPD Time Seen by Provider: 10/27/17 12:41 Chief Complaint (Nursing): Shortness Of Breath Chief Complaint (Provider): "im very short of breath" History Per: Patient, Other (prior records) Onset/Duration Of Symptoms: Gradual Current Symptoms Are (Timing): Still Present Quality: Tightness Exacerbating Factor(s): Exertion, Laying Flat Current Respiratory Medications: Other (xopenex) Severity: Moderate Associated Symptoms: Bloody Cough, Ankle/Leg Swelling Recently: Hospitalized Additional Complaint(s): 76yo male c/o dyspnea, sent from TCU for ED evaluation given hypoxia on supplemental oxygen. Prior hospitalized for pneumothorax s/p lung biopsy, had bronchoscopy (hemoptysis) and thoracentesis this week also. Past Medical History Reviewed: Historical Data, Nursing Documentation, Vital Signs Vital Signs: Last Vital Signs Temp 98.4 F 10/30/17 10:40 Pulse 89 10/30/17 10:56 Resp 18 10/30/17 10:56 BP 162/82 H 10/30/17 10:56 Pulse Ox 100 10/30/17 10:56 - Medical History PMH: Atrial Fibrillation, Cardia Arrhythmia, COPD, Emphysema, HTN, Hypercholesterolemia, Hyperlipidemia, Pneumonia Denies: HIV, Chronic Kidney Disease - Family History Family History: States: Unknown Family Hx - Immunization History Hx Pneumococcal Vaccination: Yes - Home Medications Home Medications: Ambulatory Orders Medication Instructions Recorded Atorvastatin [Lipitor] 40 mg PO HS 10/27/17 Ertapenem [Invanz] 1 gm IVPB DAILY 10/27/17 Famotidine [Pepcid] 20 mg PO DAILY 10/27/17 Finasteride [Proscar] 5 mg PO DAILY 10/27/17 Fluticasone Propionate [Flonase] 2 spray EDMUNDO DAILY 10/27/17 Fluticasone/Salmeterol 100/50 1 puff IH BID 10/27/17 [Advair Diskus 100/50] Gabapentin [Neurontin] 300 mg PO HS 10/27/17 Insulin Regular [HumuLIN R] See Protocol SC ACHS 10/27/17 Insulin Detemir [Levemir] 10 unit SC HS 10/27/17 Levalbuterol [Xopenex] 3 ml IH Q4 PRN 10/27/17 Losartan [Cozaar] 50 mg PO DAILY 10/27/17 Repaglinide [Prandin] 1 mg PO ACBD 10/27/17 Sennosides/Docusate Sodium 2 tab PO HS 10/27/17 [Senokot-S Tablet] Tiotropium [Spiriva] 18 mcg IH DAILY 10/27/17 hydroCHLOROthiazide [Microzide] 12.5 mg PO DAILY 10/27/17 - Allergies Allergies/Adverse Reactions: Allergies Allergy/AdvReac Type Severity Reaction Status Date / Time hydromorphone Allergy Mild RASH Verified 10/27/17 12:37 Review of Systems ROS Statement: Except As Marked, All Systems Reviewed And Found Negative Constitutional: Negative for: Fever Cardiovascular: Positive for: Chest Pain, Palpitations Respiratory: Positive for: Cough, Shortness of Breath, Hemoptysis Gastrointestinal: Negative for: Abdominal Pain Genitourinary Male: Negative for: Dysuria Musculoskeletal: Negative for: Neck Pain - Laboratory Results Result Diagrams: 10/28/17 08:15 10/28/17 08:15 - ECG O2 Sat by Pulse Oximetry: 99 Medical Decision Making Medical Decision Making: workup for dyspnea in recently hospitalized patient with long complicated hospital course labs and CXR reviewed, no new Pneumothorax on my view. Minimal L pleural effusion. Dr Galvez saw patient in ED, discussed case, will obtain CTA given immobilization and to better evaluate pleural fluid. Admit FP service Disposition - Clinical Impression Clinical Impression: Pleural effusion, Dyspnea - Patient ED Disposition Is Patient to be Admitted: Yes Counseled Patient/Family Regarding: Studies Performed, Diagnosis - Disposition Disposition Time: 14:45 Condition: FAIR - Pt Status Changed To: Hospital Disposition Of: Inpatient - Admit Certification Admit to Inpatient:: After my assessment, the patient will require hospitalization for at least two midnights. This is because of the severity of symptoms shown, intensity of services needed, and/or the medical risk in this patient being treated as an outpatient. - POA Present On Arrival: None
[2017-10-27 13:37] LABS: BASO % 0.6 % (0.0-2.0); EOS # 0.1 K/uL (0.0-0.7); EOS % 2.1 % (0.0-4.0); HEMOGLOBIN 11.6 g/dL (12.0-18.0); LYMPH # 0.6 K/uL (1.0-4.3); LYMPH % 8.6 % (20.0-40.0); MEAN CELL VOLUME 94.7 fl (80.0-94.0); MEAN CORPUSCULAR HEMOGLOBIN 31.4 pg (27.0-31.0); MEAN CORPUSCULAR HGB CONC 33.2 g/dL (33.0-37.0); MEAN PLATELET VOLUME 7.2 fl (7.2-11.7); MONO # 0.5 K/uL (0.0-0.8); MONO % 7.1 % (0.0-10.0); NEUT # 5.4 K/uL (1.8-7.0); NEUT % 81.6 % (50.0-75.0); PLATELET COUNT 362 K/uL (130-400); RBC 3.68 Mil/uL (4.40-5.90); RED CELL DISTRIBUTION WIDTH 13.7 % (11.5-14.5); WHITE BLOOD COUNT 6.6 K/uL (4.8-10.8)
[2017-10-27] MEDS ORDERED: Levalbuterol 0.63 MG/3 ML Inhal Soln UD ONE (13:51)
[2017-10-27 13:58] LABS: B-TYPE NATRIURETIC PEPTIDE 2920 pg/ml (0-900)
[2017-10-27 14:04] LABS: ALB/GLOB RATIO 1.3 (1.0-2.1); ALBUMIN 3.6 g/dL (3.5-5.0); ALT/SGPT 78 U/L (21-72); AST/SGOT 52 U/L (17-59); BLOOD UREA NITROGEN 18 mg/dl (9-20); GFR NON-AFRICAN AMERICAN > 60
[2017-10-27 14:29] LABS: ABG ALLEN TEST YES; ARTERIAL BLOOD GAS HCO3 35.1 mmol/L (21-28); ARTERIAL BLOOD GAS O2 CAPACITY 14.6 mL/dL (16-24); ARTERIAL BLOOD GAS O2 CONTENT 13.9 ML/dL (15-23); ARTERIAL BLOOD GAS PCO2 55 mm/Hg (35-45); ARTERIAL BLOOD GAS PH 7.46 (7.35-7.45); ARTERIAL BLOOD GAS PO2 59 mm/Hg (80-100); ARTERIAL BLOOD GAS TCO2 40.8 mmol/L (22-28)
[2017-10-27 14:46] LABS: EOSINOPHIL 1 % (0-7); LYMPHOCYTE 8 % (20-50); MONOCYTE 7 % (0-10); NEUTROPHIL 83 % (42-75); PLATELET ESTIMATE NORMAL (NORMAL); REACTIVE LYMPHOCYTES 1 % (0-0); TOTAL CELLS COUNTED 100
[2017-10-27 14:50] LABS: SPHEROCYTES SLIGHT
[2017-10-27 15:25] LABS: INR 1.3; PROTHROMBIN TIME 13.9 Seconds (9.8-13.1)
[2017-10-27 15:28] LABS: PARTIAL THROMBOPLASTIN TIME 32.7 Seconds (25.6-37.1)
--- NOTE | 2017-10-27 15:53 | CP.PCM.HP ---
History of Present Illness - History of Present Illness History of Present Illness: 76 y/o M with PMH of DM2, HTN, COPD, atrial fibrillation and hx of lung nodule ( Dx with organizing pneumonia) transferred to ER from TCU this morning due to worsening shortness of breath, hypoxemia, and dark brown/maroon sputum. Patient reports having progressively worsening SOB, poor exercise/PT tolerance and dyspnea with minimal activity in TCU. He also continues to have dark red sputum. His O2 saturation dropped to mid 70s earlier today during episode of SOB. Dyspnea partially alleviated by Xopenex nebulizer Rx and worsened by exertion. Patient denies any chest pain, headache, dizziness, nausea, vomiting, palpitation, LOC, Fever, vomiting, abdominal pain, or urinary symptoms. Patient was in [facility] ICU followed by TCU S/P left sided pneumothorax developed after [place] [facility] [place]. 1st chest tube failed to resolve pneumothorax. So subsequently 2 more chest tubes placed which eventually resolved pneumothorax. Patient was monitored via serial CXR and CT scan which showed resolution of pneumothorax and progressive worsening of bilateral pleural effusion. Right sided thoracentesis was done 2 days ago which drained about 800 cc of serous fluid. Flexible bronchoscopy was done yesterday which showed dark brown blood which was aspirated. PMD: Dr. Galvez Phlebotomy Program Coordinator: Dr. Last Past Med hx: hypertension, COPD, DM2, A-fib, Lung nodule(Organizing pneumonia) Past Surg hx: left lung, left lung nodule/mass that has been resected in the past (5 years ago) Family hx: grandmother DM2, grandfather CO Social hx: smoked cig for 10 yrs (age [age]), then smoked tobacco pipe from age [age], 1 beer a week, denies drug use Allergies: hydromorphone Next of kin: [place] [phone] Code status: full code ROS: As HPI Present on Admission - Present on Admission Any Indicators Present on Admission: No History of DVT/PE: No History of Uncontrolled Diabetes: No Urinary Catheter: No Decubitus Ulcer Present: No Review of Systems - Constitutional Constitutional: Fatigue. absent: Anorexia, Chills, Headache - EENT Eyes: absent: Change in Vision Ears: absent: Dizziness Nose/Mouth/Throat: absent: Odynophagia, Sore Throat - Cardiovascular Cardiovascular: Dyspnea, Irregular Heart Rhythm. absent: Chest Pain, Chest Pain at Rest, Chest Pain with Activity, Diaphoresis, Edema, Lightheadedness - Respiratory Respiratory: Dyspnea on Exertion, Wheezing. absent: Cough - Gastrointestinal Gastrointestinal: absent: Abdominal Pain, Constipation, Diarrhea, Nausea, Vomiting - Genitourinary Genitourinary: absent: Change in Urinary Stream, Dysuria - Musculoskeletal Musculoskeletal: absent: Back Pain, Numbness, Tingling - Neurological Neurological: absent: Frequent Falls, Headaches, Loss of Vision Past Patient History - Past Medical History & Family History Past Medical History?: Yes - Past Social History Smoking Status: Former Smoker Alcohol: < 2 Drinks/Day Home Situation {Lives}: With Family - CARDIAC Hx Atrial Fibrillation: Yes Hx Cardia Arrhythmia: Yes Hx Hypercholesterolemia: Yes Hx Hypertension: Yes - PULMONARY Hx Respiratory Disorders: Yes (Organizing pneumonia) Hx Chronic Obstructive Pulmonary Disease (COPD): Yes Hx Emphysema: Yes Hx Pneumonia: Yes - NEUROLOGICAL Hx Neurological Disorder: No - HEENT Hx HEENT Problems: No - RENAL Hx Chronic Kidney Disease: No - ENDOCRINE/METABOLIC Hx Endocrine Disorders: Yes Hx Diabetes Mellitus Type 2: Yes - HEMATOLOGICAL/ONCOLOGICAL Hx Human Immunodeficiency Virus (HIV): No - INTEGUMENTARY Hx Dermatological Problems: No - MUSCULOSKELETAL/RHEUMATOLOGICAL Hx Musculoskeletal Disorders: No Hx Falls: No - GASTROINTESTINAL Hx Gastrointestinal Disorders: No - GENITOURINARY/GYNECOLOGICAL Hx Genitourinary Disorders: Yes Hx Prostate Problems: Yes (BPH with LUTS) - PSYCHIATRIC Hx Emotional Abuse: No Hx Physical Abuse: No Hx Substance Use: No - SURGICAL HISTORY Hx Surgeries: Yes Other/Comment: Resected RUL nodule, mediastinoscopy. BACK SX. s/p chest tube. lung bx - ANESTHESIA Hx Anesthesia: Yes Hx Anesthesia Reactions: No Hx Malignant Hyperthermia: No Meds Allergies/Adverse Reactions: Allergies Allergy/AdvReac Type Severity Reaction Status Date / Time hydromorphone Allergy Mild RASH Verified 10/27/17 12:37 Physical Exam - Constitutional Appears: Non-toxic, No Acute Distress - Head Exam Head Exam: ATRAUMATIC, NORMAL INSPECTION, NORMOCEPHALIC - Eye Exam Eye Exam: Normal appearance, PERRL - ENT Exam ENT Exam: Mucous Membranes Moist - Respiratory Exam Respiratory Exam: Decreased Breath Sounds, Prolonged Expiratory Phase, Rhonchi, Wheezes. absent: Chest Wall Tenderness Additional comments: Bilateral scattered wheeze, Sonorous rhonchi bilaterally - Cardiovascular Exam Cardiovascular Exam: Irregular Rhythm, +S1, +S2 - GI/Abdominal Exam GI & Abdominal Exam: Normal Bowel Sounds, Soft. absent: Distended, Firm, Guarding, Hernia, Tenderness - Extremities Exam Extremities exam: Negative for: calf tenderness, pedal edema, tenderness - Back Exam Back exam: absent: CVA tenderness (L), CVA tenderness (R), tenderness - Neurological Exam Neurological exam: Alert, Oriented x3 - Psychiatric Exam Psychiatric exam: Normal Affect, Normal Mood - Skin Skin Exam: Dry, Intact, Normal Color Additional comments: Nontender, erythematous area on chest tube insertion site. No signs of infection Results - Vital Signs Recent Vital Signs: Last Vital Signs Temp 98 F 10/27/17 12:38 Pulse 85 10/27/17 12:38 Resp 18 10/27/17 14:30 BP 162/45 H 10/27/17 12:38 Pulse Ox 99 10/27/17 13:16 - Labs Result Diagrams: 10/27/17 13:19 10/27/17 13:19 Labs: Laboratory Results - last 24 hr 10/27/17 10/27/17 10/27/17 13:16 13:19 13:19 WBC 6.6 RBC 3.68 L Hgb 11.6 L Hct 34.8 L MCV 94.7 H MCH 31.4 H MCHC 33.2 RDW 13.7 Plt Count 362 MPV 7.2 Neut % (Auto) 81.6 H Lymph % (Auto) 8.6 L [place] % (Auto) 7.1 Eos % (Auto) 2.1 Baso % (Auto) 0.6 Neut # (Auto) 5.4 Lymph # (Auto) 0.6 L [place] # (Auto) 0.5 Eos # (Auto) 0.1 Baso # (Auto) 0.0 Neutrophils % (Manual) 83 H Lymphocytes % (Manual) 8 L Reactive Lymphs % 1 H Monocytes % (Manual) 7 Eosinophils % (Manual) 1 Platelet Estimate Normal Spherocytes Slight PT INR APTT pCO2 55 H pO2 59 L HCO3 35.1 H ABG pH 7.46 H ABG Total CO2 40.8 H ABG O2 Saturation 95.0 ABG O2 Content 13.9 L ABG Base Excess 13.3 H ABG Hemoglobin 11.0 L ABG Carboxyhemoglobin 3.2 H POC ABG HHb (Measured) 4.7 ABG Methemoglobin 2.5 ABG O2 Capacity 14.6 L Scout Test Yes A-a O2 Difference 22.0 Hgb O2 Saturation 89.7 L FiO2 21.0 Blood Gas Comments Rroomm air,rt rad Crit Value Read Back N Sodium 140 Potassium 4.4 Chloride 98 Carbon Dioxide 36 H Anion Gap 10 BUN 18 Creatinine 0.8 Est GFR ( Amer) > 60 Est GFR (Non-Af Amer) > 60 Random Glucose 140 H Calcium 9.0 Total Bilirubin 0.6 AST 52 ALT 78 H Alkaline Phosphatase 79 NT-Pro-B Natriuret Pep 2920 H Total Protein 6.4 Albumin 3.6 Globulin 2.8 Albumin/Globulin Ratio 1.3 10/27/17 10/27/17 13:19 15:08 WBC RBC Hgb Hct MCV MCH MCHC RDW Plt Count MPV Neut % (Auto) Lymph % (Auto) [place] % (Auto) Eos % (Auto) Baso % (Auto) Neut # (Auto) Lymph # (Auto) [place] # (Auto) Eos # (Auto) Baso # (Auto) Neutrophils % (Manual) Lymphocytes % (Manual) Reactive Lymphs % Monocytes % (Manual) Eosinophils % (Manual) Platelet Estimate Spherocytes PT Cancelled 13.9 H INR Cancelled 1.3 APTT Cancelled 32.7 pCO2 pO2 HCO3 ABG pH ABG Total CO2 ABG O2 Saturation ABG O2 Content ABG Base Excess ABG Hemoglobin ABG Carboxyhemoglobin POC ABG HHb (Measured) ABG Methemoglobin ABG O2 Capacity Scout Test A-a O2 Difference Hgb O2 Saturation FiO2 Blood Gas Comments Crit Value Read Back Sodium Potassium Chloride Carbon Dioxide Anion Gap BUN Creatinine Est GFR ( Amer) Est GFR (Non-Af Amer) Random Glucose Calcium Total Bilirubin AST ALT Alkaline Phosphatase NT-Pro-B Natriuret Pep Total Protein Albumin Globulin Albumin/Globulin Ratio Assessment & Plan - Assessment and Plan (Free Text) Assessment: 76 y/o M with PMH of DM2, HTN, COPD, atrial fibrillation and hx of lung nodule ( Dx with organizing pneumonia) transferred to ER from TCU this morning due to worsening shortness of breath, hypoxemia, and dark brown/maroon sputum. Plan: Worsening dyspnea - Progressively worsnening, SPO2 mid 70s this morning - Received Xopenex and Solumedrol 125 mg in ED, SPO2 increased to 98% - CTA chest ordered, Rule out PE - Currently on NC O2 3L - CT Chest 10/24: Further increase in pleural effusions now [id number] in volume, appearing free at the right and at least partly loculated at the left. Resolution of left chest wall subcutaneous emphysema. A moderately large bulla is partially fluid-filled at the right middle lobe base with COPD changes. Biapical nodular changes are identified as well as fibrosis with underlying nodule difficult to exclude at left apex. Small noncalcified nodules are again seen at the right upper and lower lobes. - S/P thoracentesis, 800 cc right sided pleural fluids removed, sent for cytology - S/P Bronchoscopy: Dark red blood seen and lavaged Dr Hameed, Pulmonary consult on board: Will follow recommendations. - F/U CBC, BMP tomorrow AM - Monitor vitals Bloody sputum/Hemoptysis - Grossly blood, + Enterobacter Cloacea ssp - Completed 2 day of Ertepenum - ID on board: Will follow recommendations - Pulmonary consult on board: Recommendations appreciated. - Hold Lovenox and Coumadin as per Dr. Hameed - S/P Bronchoscopy 10/26/17 - Will monitor status COPD -Severe, chronic -Pulmonology consult appreciated: Dr. Hameed -On NC 3L O2 -Xopenex INH RQ4 PRN -Xopenex INH QQ6hr ULISES -C/W Spiriva 18 mcg INH QD, hold Advair Diskus 500/50 1 puff IH Q12: per pulmonology -C/W Ventolin HFA 2 puff IH Q6 PRN -Monitor respiratory status Hx of recent Left lung Pneumothorax -CT Chest 10/16/17: trace residual left penumothorax, increase in plural effusions. -s/p left anterior and posterior chest tubes placement and removal -CXR: No acute changes compared to previous CXR. -CT Chest: 10/23/17: Further increase in pleural effusions now [id number] in volume, Resolution of left chest wall subcutaneous emphysema. A moderately large bulla is partially fluid-filled in the interval at the right middle lobe base with COPD changes otherwise reiterated and stable appearing. Biapical nodular changes are identified as well as fibrosis with underlying nodule difficult to exclude at left apex. Small noncalcified nodules are again seen at the right upper and lower lobes. Atrial Fibrillation -Chronic, asymptomatic -Was previously on digoxin, but this was d/c by Dr. Last in May due to detection of brief pauses EKG -no beta blockers as patient has limited respiratory reserve -Hold Coumadin as per Pulmonary Hx of Blood cultures positive for gram+ cocci -10/07/2017 GPC+ in anaerobic sample, possible contaminant. 10/09 blood culture gram + bacilli -repeat blood cultures no growth -Completed Meropenum and Vancomycin Rx. - As per Phlebotomy Program Coordinator Dr. gM: On Echo: Good LV function, EF: 60-65%, There is no evidence of thickening or vegetation on any of the valves. Left Lung Nodule, s/p Lung [place]04[place] [facility] [place] showed cryptococcal organized pneumonia [place] [facility] Diabetes Mellitus type 2 -Chronic, controlled -Last HBA1C: 7.7 on 05/2017 -Repaglinide 1mg PO BID -Continue with home medications: Levemir 10 SC QHS. Insulin regular coverage scale added -Hypoglycemic treatment protocol in place -AccuChecks ACHS Hypertension -Chronic, controlled -C/w Losartan 50 mg PO QD -HCTZ held as BP was running low -monitor BP HLD -chronic, controlled -continue home medication: atorvastatin 40mg DVT Prophylaxis -SCDs -Lovenox and Coumadin on hold -Discussed risks and benefits w/ printed circuit board panels trimmer and vulnerability assessment analyst Diet: Heart Healthy diet Code Status: -Full Code -Next of kin: , [place] [phone]
[2017-10-27] MEDS ORDERED: Iodixanol 320 MG/ML 100 ML BOTTLE IV ONE (16:32)
[2017-10-27] MEDS ORDERED: Sodium Chloride 0.9% 50 ML IV ONE (16:32)
[2017-10-27] MEDS ORDERED: Dextrose 50% SYRINGE Inj (50 ml) IVP PRN (17:01)
[2017-10-27] MEDS ORDERED: Glucagon Recombinant 1 mg Inj IM PRN (17:01)
--- NOTE | 2017-10-27 17:46 | CT ---
Date of service: 10/27/2017 PROCEDURE: CT Chest with contrast (Pulmonary Angiogram) HISTORY: r/o PE COMPARISON: Noncontrast chest CT 10/23/2017. TECHNIQUE: Axial computed tomography images were obtained of the chest in the pulmonary arterial phase of enhancement. Coronal and sagittal reformatted images were created and reviewed. Intravenous contrast dose: Visipaque 320, 90 cc Radiation dose: Total exam DLP = 373.63 mGy-cm. This CT exam was performed using one or more of the following dose reduction techniques: Automated exposure control, adjustment of the mA and/or kV according to patient size, and/or use of iterative reconstruction technique. FINDINGS: PULMONARY ARTERIES: Unremarkable. No pulmonary embolism. AORTA: No acute findings. No thoracic aortic aneurysm. LUNGS: Centrilobular emphysematous changes are identified affecting the upper greater than lower lobes with stable scar-like nodule at the left apex and a few nodular foci are at the right apex are again evident. Fluid is reiterated in a large bulla at the right middle lobe posterior inferiorly measuring 8.9 x 6.3 cm once again. Fluid volume may be somewhat decreased in the interval. No suspicious enhancement is seen to suggest pyocele or abscess. Note that the material within this structure appears slightly more dense than that comprising effusions in the bilateral pleural spaces. Late subacute or chronic hemorrhage is not excluded. PLEURAL SPACES: Stable [id number] bilateral pleural effusions are identified which may be loculated given its somewhat irregular lobulated surfaces greater at the left and right sides. Pleural calcifications are scattered at the left pleural spaces minimally. No pneumothorax. HEART: Unremarkable. No cardiomegaly. No significant pericardial effusion. LYMPH NODES: Mild mediastinal lymphadenopathy is reiterated primarily in the aorta pulmonary window. BONES, CHEST WALL: Unremarkable. No fracture or destructive lesion OTHER FINDINGS: Unremarkable. IMPRESSION: 1. No CT evidence of acute pulmonary embolus. 2. Extensive COPD again appreciated with variable fibrosis and apical nodularity as discussed above. Stable large pneumatocele or bulla at the right middle lobe inferiorly, containing diminishing fluid volume potentially reflecting late subacute or chronic hematocele. Pyocele or abscess is not favored given lack of contrast enhancement. 3. Stable [id number] bilateral pleural effusions reiterated, likely loculated at the left. 4. Stable small left adrenal nodule.
[2017-10-27] MEDS: Levalbuterol 0.63 MG/3 ML Inhal Soln UD IH PRN ×2 (17:49→23:26)
[2017-10-27] MEDS: Docusate-Senna 50 mg-8.6 mg Tab PO SCH (22:12)
[2017-10-27] MEDS: Insulin Regular 100 units/ml SC SCH (22:13)
[2017-10-27] MEDS: Fluticasone-Salmeterol 100-50mcg Diskus IH SCH (22:13)
[2017-10-27] MEDS: Insulin Detemir 100 Units/ml Inj SC SCH (22:14)
[2017-10-28] MEDS: Levalbuterol 0.63 MG/3 ML Inhal Soln UD IH PRN ×3 (06:16→21:20)
[2017-10-28 08:54] LABS: HEMOGLOBIN 11.2 g/dL (12.0-18.0); MEAN CELL VOLUME 93.3 fl (80.0-94.0); MEAN CORPUSCULAR HEMOGLOBIN 31.8 pg (27.0-31.0); RBC 3.52 Mil/uL (4.40-5.90); RED CELL DISTRIBUTION WIDTH 13.6 % (11.5-14.5); WHITE BLOOD COUNT 6.9 K/uL (4.8-10.8)
[2017-10-28] MEDS ORDERED: ERTAPENEM 1 GM IVPB SCH (09:00)
[2017-10-28 09:05] LABS: BLOOD UREA NITROGEN 20 mg/dl (9-20); GFR NON-AFRICAN AMERICAN > 60
[2017-10-28] MEDS: Insulin Regular 100 units/ml SC SCH ×4 (09:48→22:00)
[2017-10-28] MEDS: Fluticasone-Salmeterol 100-50mcg Diskus IH SCH ×2 (09:50→16:37)
[2017-10-28] MEDS: Tiotropium 18 mcg Cap For Inhalation IH SCH (09:50)
--- NOTE | 2017-10-28 10:15 | CP.PCM.PN ---
Subjective - Date & Time of Evaluation Date of Evaluation: 10/28/17 Time of Evaluation: 08:30 - Subjective Subjective: No overnight events. Patient seen sitting upright in bed having breakfast. Breathing comforatbly with highflow O2 at 60% FIO2. No shortness of breath reported, he is not in any respiratory distress. He had bloody sputum x1 this morning. No other complaints. Objective - Vital Signs/Intake and Output Vital Signs (last 24 hours): Temp Pulse Resp BP Pulse Ox 97.8 F 83 20 149/67 100 10/28/17 08:00 10/28/17 09:49 10/28/17 08:00 10/28/17 09:49 10/28/17 08:00 - Medications Medications: Current Medications Acetaminophen (Tylenol 325mg Tab) 650 mg PO Q4 PRN PRN Reason: Pain, Mild (1-3) Atorvastatin Calcium (Lipitor) 40 mg PO HS [facility] Last Admin: 10/27/17 22:15 Dose: 40 mg Dextrose (Dextrose 50% Inj) 0 ml IVP STAT PRN; Protocol PRN Reason: Hypoglycemia Protocol Famotidine (Pepcid) 20 mg PO DAILY [facility] Last Admin: 10/28/17 09:48 Dose: 20 mg Finasteride (Proscar) 5 mg PO DAILY [facility] Last Admin: 10/28/17 09:48 Dose: 5 mg Fluticasone Propionate (Flonase) 2 spr EDMUNDO DAILY [facility] Last Admin: 10/28/17 09:51 Dose: 2 spr Gabapentin (Neurontin) 300 mg PO [facility] Last Admin: 10/27/17 22:15 Dose: 300 mg Glucagon (Glucagen Diagnostic Kit) 0 mg IM STAT PRN; Protocol PRN Reason: Hypoglycemia Protocol Hydrochlorothiazide (Microzide) 12.5 mg PO DAILY [facility] Last Admin: 10/28/17 09:48 Dose: 12.5 mg Ertapenem 1 gm/ Sodium (Chloride) 100 mls @ 100 mls/hr IVPB DAILY [facility] Last Admin: 10/28/17 09:54 Dose: 100 mls/hr Insulin Detemir (Levemir) 10 units SC [facility] Last Admin: 10/27/17 22:14 Dose: 10 units Insulin Human Regular (Humulin R) 0 units SC [facility] PRN Reason: Protocol Last Admin: 10/28/17 09:48 Dose: Not Given Levalbuterol HCl (Xopenex) 0.63 mg IH RQ4 PRN PRN Reason: Shortness of Breath Last Admin: 10/28/17 06:16 Dose: 0.63 mg Losartan Potassium (Cozaar) 50 mg PO DAILY [facility] Last Admin: 10/28/17 09:49 Dose: 50 mg Ondansetron HCl (Zofran Inj) 4 mg IVP Q6 PRN PRN Reason: Nausea/Vomiting Repaglinide (Prandin) 1 mg PO ACBD [facility] Last Admin: 10/28/17 09:48 Dose: 1 mg Fluticasone/Salmeterol (Advair Diskus 100/50) 1 puff IH BID [facility] Last Admin: 10/28/17 09:50 Dose: 1 puff Senna/Docusate Sodium (Senokot S 50 Mg-8.6 Mg) 2 tab PO HS [facility] Last Admin: 10/27/17 22:12 Dose: 2 tab Tiotropium Aquilla (Spiriva) 18 mcg IH DAILY [facility] Last Admin: 10/28/17 09:50 Dose: 18 mcg - Labs Labs: 10/28/17 08:15 10/28/17 08:15 PT 13.9 Seconds (9.8-13.1) H 10/27/17 15:08 INR 1.3 10/27/17 15:08 APTT 32.7 Seconds (25.6-37.1) 10/27/17 15:08 - Constitutional Appears: Non-toxic, No Acute Distress (wearing high flow NC) - Head Exam Head Exam: ATRAUMATIC, NORMAL INSPECTION, NORMOCEPHALIC - Eye Exam Eye Exam: Normal appearance Pupil Exam: NORMAL ACCOMODATION - ENT Exam ENT Exam: Mucous Membranes Moist - Respiratory Exam Respiratory Exam: Rales (up to mid lung on right side, left lung decreased breath sounds but clear to auscultation). absent: Chest Wall Tenderness - Cardiovascular Exam Cardiovascular Exam: REGULAR RHYTHM. absent: Bradycardia, Tachycardia, Murmur - GI/Abdominal Exam GI & Abdominal Exam: Soft. absent: Distended, Guarding, Tenderness - Extremities Exam Extremities Exam: Normal Inspection. absent: Calf Tenderness, Pedal Edema - Neurological Exam Neurological Exam: Alert, CN II-XII Intact Assessment and Plan - Assessment and Plan (Free Text) Assessment: 76 y/o M with PMH of DM2, HTN, COPD, atrial fibrillation and hx of lung nodule ( Dx with organizing pneumonia) transferred to ER from TCU this morning due to worsening shortness of breath, hypoxemia, and dark brown/maroon sputum. 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 - Progressively worsnening, SPO2 mid 70s yesterday, this morning patient breathing comfortably on high flow O2 - CTA Chest: 1. No CT evidence of acute pulmonary embolus. 2. Extensive COPD again appreciated with variable fibrosis and apical nodularity as discussed above. Stable large pneumatocele or bulla at the right middle lobe inferiorly, containing diminishing fluid volume potentially reflecting late subacute or chronic hematocele. Pyocele or abscess is not favored given lack of contrast enhancement. 3. Stable [id number] bilateral pleural effusions reiterated, likely loculated at the left. 4. Stable small left adrenal nodule. - S/P thoracentesis and bronchoscopy: cultures and cytology done - Dr Hameed, Pulmonary consult on board: Will follow recommendations. - continue with spiriva. -Xopenex q6 scheduled, as well as PRN Bloody sputum/Hemoptysis -persists - Grossly blood, + Enterobacter Cloacea ssp - Completed 3 day of Ertapenem - ID on board: Will follow recommendations - Pulmonary consult on board: Recommendations appreciated. - Hold Lovenox and Coumadin as per Dr. Hameed - S/P Bronchoscopy 10/26/17 - Will monitor status Atrial Fibrillation -Chronic, asymptomatic -Was previously on digoxin, but this was d/c by Dr. 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 Insulin regular coverage scale added -Hypoglycemic treatment protocol in place -AccuChecks ACHS Hypertension -Chronic, controlled -C/w Losartan 50 mg PO QD -HCTZ held as BP was running low -monitor BP HLD -chronic, controlled -continue home medication: atorvastatin 40mg Hx of Blood cultures positive for gram+ cocci -repeat cultures neg, resolved. DVT Prophylaxis -SCDs -Lovenox and Coumadin on hold -Discussed risks and benefits w/ bottle booth attendant and director of program management Diet: Heart Healthy diet, consistent carbohydrate mod Code Status: -Full Code -Next of kin: , [place] [phone]
[2017-10-28] MEDS ORDERED: methylPREDNISolone 30 MG in Sodium Chloride 0.9% 50 ML IVPB SCH (10:45)
--- NOTE | 2017-10-28 10:45 | CP.PCM.CON ---
History of Present Illness - History of Present Illness History of Present Illness: This 76- year-old man is well known to me over last 15-20 years. He has had severe COPD as a consequence of long history of cigarette use and recently underwent a needle biopsy of a lung nodule which resulted in a large pneumothorax requiring insertion off a chest tube and eventually also required drainage of pleural fluid. He has had a long history of atrial fibrillation which is being managed with oral anticoagulation and control of heart rate. The patient is also diabetic. The patient has had an extremely poor respiratory reserve and has class III to class IV dyspnea on exertion. The patient was transferred from transitional care unit where he was recuperating back to the telemetry unit when he became profoundly short of breath and desaturated. Following insertion of a chest tube he has had a recurring epistaxis. He recently underwent a bronchoscopy to evaluate his bronchial tree but no suspicious lesion was detected but a lot of old blood was found. Patient had been briefly started on warfarin approximately 5 days back and his INR 3 days back was 1.9. The most recent INR was 1.5. Physical examination shows an elderly gentleman quite alert awake and coherent mildly dyspneic at rest with a respiratory rate of 20 breaths per minute. Telemetry shows atrial fibrillation with a heart rate in the range of 80-90 bpm irregularly irregular. His blood pressure was 124/74 mmHg. Jugular venous pressure was not elevated and there was no edema over his lower estimate is. The pedal pulses were extremely feeble but distinct of present. The extremities were warm and his nailbeds were pink. There was no central or peripheral cyanosis. The patient was provided with high flow oxygen supplement with a nasal cannula and his pulse oximetry was in the range of 94-95%. The chest and emphysematous configuration. The apex was not palpable. The first and second heart sounds were distant. No murmur or gallop where present. Abdomen was soft and liver and spleen are not palpable. It entry was poor on both sides. expiration was slightly prolonged. Recent electrocardiogram was reviewed. CT of the chest taken this morning was reviewed. Case was discussed with his pulmonary physician. Impression: Acute exacerbation of COPD in a patient with chronic atrial fibrillation and diabetes mellitus. Recent pneumothorax following needle biopsy of a lung nodule. Recurring hemoptysis. The patient at this juncture appears to be stable from pulmonary point of view. He is hemodynamically stable. Oral anticoagulation has been withheld while the patient continues to have some degree of hemoptysis. The issue off restarting warfarin was discussed with the patient and it will be soon restarted. Past Patient History - Past Medical History & Family History Past Medical History?: Yes - Past Social History Smoking Status: Former Smoker - CARDIAC Hx Atrial Fibrillation: Yes Hx Cardia Arrhythmia: Yes Hx Hypercholesterolemia: Yes Hx Hypertension: Yes - PULMONARY Hx Respiratory Disorders: Yes (Organizing pneumonia) Hx Chronic Obstructive Pulmonary Disease (COPD): Yes Hx Emphysema: Yes Hx Pneumonia: Yes - NEUROLOGICAL Hx Neurological Disorder: No - HEENT Hx HEENT Problems: No - RENAL Hx Chronic Kidney Disease: No - ENDOCRINE/METABOLIC Hx Endocrine Disorders: Yes Hx Diabetes Mellitus Type 2: Yes - HEMATOLOGICAL/ONCOLOGICAL Hx Human Immunodeficiency Virus (HIV): No - INTEGUMENTARY Hx Dermatological Problems: No - MUSCULOSKELETAL/RHEUMATOLOGICAL Hx Falls: No - GASTROINTESTINAL Hx Gastrointestinal Disorders: No - GENITOURINARY/GYNECOLOGICAL Hx Genitourinary Disorders: Yes - PSYCHIATRIC Hx Substance Use: No - SURGICAL HISTORY Hx Surgeries: Yes Other/Comment: Resected RUL nodule, mediastinoscopy. BACK SX. s/p chest tube. lung bx - ANESTHESIA Hx Anesthesia: Yes Hx Anesthesia Reactions: No Hx Malignant Hyperthermia: No Meds Allergies/Adverse Reactions: Allergies Allergy/AdvReac Type Severity Reaction Status Date / Time hydromorphone Allergy Mild RASH Verified 10/27/17 12:37 - Medications Medications: Current Medications Acetaminophen (Tylenol 325mg Tab) 650 mg PO Q4 PRN PRN Reason: Pain, Mild (1-3) Atorvastatin Calcium (Lipitor) 40 mg PO HS [facility] Last Admin: 10/27/17 22:15 Dose: 40 mg Dextrose (Dextrose 50% Inj) 0 ml IVP STAT PRN; Protocol PRN Reason: Hypoglycemia Protocol Famotidine (Pepcid) 20 mg PO DAILY [facility] Last Admin: 10/28/17 09:48 Dose: 20 mg Finasteride (Proscar) 5 mg PO DAILY [facility] Last Admin: 10/28/17 09:48 Dose: 5 mg Fluticasone Propionate (Flonase) 2 spr EDMUNDO DAILY [facility] Last Admin: 10/28/17 09:51 Dose: 2 spr Gabapentin (Neurontin) 300 mg PO HS [facility] Last Admin: 10/27/17 22:15 Dose: 300 mg Glucagon (Glucagen Diagnostic Kit) 0 mg IM STAT PRN; Protocol PRN Reason: Hypoglycemia Protocol Hydrochlorothiazide (Microzide) 12.5 mg PO DAILY [facility] Last Admin: 10/28/17 09:48 Dose: 12.5 mg Ertapenem 1 gm/ Sodium (Chloride) 100 mls @ 100 mls/hr IVPB DAILY [facility] Last Admin: 10/28/17 09:54 Dose: 100 mls/hr Methylprednisolone 30 mg/ (Sodium Chloride) 50 mls @ 100 mls/hr IVPB DAILY [facility] Insulin Detemir (Levemir) 10 units SC HS [facility] Last Admin: 10/27/17 22:14 Dose: 10 units Insulin Human Regular (Humulin R) 0 units SC [facility] PRN Reason: Protocol Last Admin: 10/28/17 09:48 Dose: Not Given Levalbuterol HCl (Xopenex) 0.63 mg IH RQ4 PRN PRN Reason: Shortness of Breath Last Admin: 10/28/17 06:16 Dose: 0.63 mg Losartan Potassium (Cozaar) 50 mg PO DAILY [facility] Last Admin: 10/28/17 09:49 Dose: 50 mg Ondansetron HCl (Zofran Inj) 4 mg IVP Q6 PRN PRN Reason: Nausea/Vomiting Repaglinide (Prandin) 1 mg PO ACBD [facility] Last Admin: 10/28/17 09:48 Dose: 1 mg Fluticasone/Salmeterol (Advair Diskus 100/50) 1 puff IH BID [facility] Last Admin: 10/28/17 09:50 Dose: 1 puff Senna/Docusate Sodium (Senokot S 50 Mg-8.6 Mg) 2 tab PO HS [facility] Last Admin: 10/27/17 22:12 Dose: 2 tab Tiotropium Aylett (Spiriva) 18 mcg IH DAILY [facility] Last Admin: 10/28/17 09:50 Dose: 18 mcg Results - Vital Signs Recent Vital Signs: Last Vital Signs Temp 97.8 F 10/28/17 08:00 Pulse 83 10/28/17 09:49 Resp 20 10/28/17 08:00 BP 149/67 10/28/17 09:49 Pulse Ox 100 10/28/17 08:00 - Labs Result Diagrams: 10/28/17 08:15 10/28/17 08:15 Labs: Laboratory Results - last 24 hr 10/27/17 10/27/17 10/27/17 13:16 13:19 13:19 WBC 6.6 RBC 3.68 L Hgb 11.6 L Hct 34.8 L MCV 94.7 H MCH 31.4 H MCHC 33.2 RDW 13.7 Plt Count 362 MPV 7.2 Neut % (Auto) 81.6 H Lymph % (Auto) 8.6 L Mcclain % (Auto) 7.1 Eos % (Auto) 2.1 Baso % (Auto) 0.6 Neut # (Auto) 5.4 Lymph # (Auto) 0.6 L Mcclain # (Auto) 0.5 Eos # (Auto) 0.1 Baso # (Auto) 0.0 Neutrophils % (Manual) 83 H Lymphocytes % (Manual) 8 L Reactive Lymphs % 1 H Monocytes % (Manual) 7 Eosinophils % (Manual) 1 Platelet Estimate Normal Spherocytes Slight PT INR APTT pCO2 55 H pO2 59 L HCO3 35.1 H ABG pH 7.46 H ABG Total CO2 40.8 H ABG O2 Saturation 95.0 ABG O2 Content 13.9 L ABG Base Excess 13.3 H ABG Hemoglobin 11.0 L ABG Carboxyhemoglobin 3.2 H POC ABG HHb (Measured) 4.7 ABG Methemoglobin 2.5 ABG O2 Capacity 14.6 L Scout Test Yes A-a O2 Difference 22.0 Hgb O2 Saturation 89.7 L FiO2 21.0 Blood Gas Comments Rroomm air,rt rad Crit Value Read Back N Sodium 140 Potassium 4.4 Chloride 98 Carbon Dioxide 36 H Anion Gap 10 BUN 18 Creatinine 0.8 Est GFR ( Amer) > 60 Est GFR (Non-Af Amer) > 60 POC Glucose (mg/dL) Random Glucose 140 H Calcium 9.0 Total Bilirubin 0.6 AST 52 ALT 78 H Alkaline Phosphatase 79 NT-Pro-B Natriuret Pep 2920 H Total Protein 6.4 Albumin 3.6 Globulin 2.8 Albumin/Globulin Ratio 1.3 10/27/17 10/27/17 10/27/17 13:19 15:08 18:12 WBC RBC Hgb Hct MCV MCH MCHC RDW Plt Count MPV Neut % (Auto) Lymph % (Auto) Mcclain % (Auto) Eos % (Auto) Baso % (Auto) Neut # (Auto) Lymph # (Auto) Mcclain # (Auto) Eos # (Auto) Baso # (Auto) Neutrophils % (Manual) Lymphocytes % (Manual) Reactive Lymphs % Monocytes % (Manual) Eosinophils % (Manual) Platelet Estimate Spherocytes PT Cancelled 13.9 H INR Cancelled 1.3 APTT Cancelled 32.7 pCO2 pO2 HCO3 ABG pH ABG Total CO2 ABG O2 Saturation ABG O2 Content ABG Base Excess ABG Hemoglobin ABG Carboxyhemoglobin POC ABG HHb (Measured) ABG Methemoglobin ABG O2 Capacity Scout Test A-a O2 Difference Hgb O2 Saturation FiO2 Blood Gas Comments Crit Value Read Back Sodium Potassium Chloride Carbon Dioxide Anion Gap BUN Creatinine Est GFR ( Amer) Est GFR (Non-Af Amer) POC Glucose (mg/dL) 205 H Random Glucose Calcium Total Bilirubin AST ALT Alkaline Phosphatase NT-Pro-B Natriuret Pep Total Protein Albumin Globulin Albumin/Globulin Ratio 10/27/17 10/28/17 10/28/17 21:29 05:47 08:15 WBC 6.9 RBC 3.52 L Hgb 11.2 L Hct 32.9 L MCV 93.3 MCH 31.8 H MCHC 34.0 RDW 13.6 Plt Count 403 H MPV Neut % (Auto) Lymph % (Auto) Mcclain % (Auto) Eos % (Auto) Baso % (Auto) Neut # (Auto) Lymph # (Auto) Mcclain # (Auto) Eos # (Auto) Baso # (Auto) Neutrophils % (Manual) Lymphocytes % (Manual) Reactive Lymphs % Monocytes % (Manual) Eosinophils % (Manual) Platelet Estimate Spherocytes PT INR APTT pCO2 pO2 HCO3 ABG pH ABG Total CO2 ABG O2 Saturation ABG O2 Content ABG Base Excess ABG Hemoglobin ABG Carboxyhemoglobin POC ABG HHb (Measured) ABG Methemoglobin ABG O2 Capacity Scout Test A-a O2 Difference Hgb O2 Saturation FiO2 Blood Gas Comments Crit Value Read Back Sodium Potassium Chloride Carbon Dioxide Anion Gap BUN Creatinine Est GFR ( Amer) Est GFR (Non-Af Amer) POC Glucose (mg/dL) 242 H 129 H Random Glucose Calcium Total Bilirubin AST ALT Alkaline Phosphatase NT-Pro-B Natriuret Pep Total Protein Albumin Globulin Albumin/Globulin Ratio 10/28/17 08:15 WBC RBC Hgb Hct MCV MCH MCHC RDW Plt Count MPV Neut % (Auto) Lymph % (Auto) Mcclain % (Auto) Eos % (Auto) Baso % (Auto) Neut # (Auto) Lymph # (Auto) Mcclain # (Auto) Eos # (Auto) Baso # (Auto) Neutrophils % (Manual) Lymphocytes % (Manual) Reactive Lymphs % Monocytes % (Manual) Eosinophils % (Manual) Platelet Estimate Spherocytes PT INR APTT pCO2 pO2 HCO3 ABG pH ABG Total CO2 ABG O2 Saturation ABG O2 Content ABG Base Excess ABG Hemoglobin ABG Carboxyhemoglobin POC ABG HHb (Measured) ABG Methemoglobin ABG O2 Capacity Scout Test A-a O2 Difference Hgb O2 Saturation FiO2 Blood Gas Comments Crit Value Read Back Sodium 140 Potassium 4.3 Chloride 100 Carbon Dioxide 38 H Anion Gap 6 L BUN 20 Creatinine 0.8 Est GFR ( Amer) > 60 Est GFR (Non-Af Amer) > 60 POC Glucose (mg/dL) Random Glucose 142 H Calcium 9.0 Total Bilirubin AST ALT Alkaline Phosphatase NT-Pro-B Natriuret Pep Total Protein Albumin Globulin Albumin/Globulin Ratio
--- NOTE | 2017-10-28 10:48 | CP.PCM.CON ---
History of Present Illness - History of Present Illness History of Present Illness: Seen on rounds in telemetry, seated up in bed, appears comfortable. Using HFNC at 60% O2 and 30 LPM flow. SpO2 is presently 100%. Has had some dark blood expectorated this morning (once). Claims he had no blood expectoration overnight. He does relate a history of spitting up small amounts of dark blood admixed with his sputum for the past 3-[address] chest for PE was negative, did show a fluid filled bulla at the right lung base, maybe slightly smaller in volume than his last CT, and moderate bilateral pleural effusions. No new or changed lesions were identified, no new infiltrates seen. Past Patient History - Past Medical History & Family History Past Medical History?: Yes - Past Social History Smoking Status: Former Smoker - CARDIAC Hx Atrial Fibrillation: Yes Hx Cardia Arrhythmia: Yes Hx Hypercholesterolemia: Yes Hx Hypertension: Yes - PULMONARY Hx Respiratory Disorders: Yes (Organizing pneumonia) Hx Chronic Obstructive Pulmonary Disease (COPD): Yes Hx Emphysema: Yes Hx Pneumonia: Yes - NEUROLOGICAL Hx Neurological Disorder: No - HEENT Hx HEENT Problems: No - RENAL Hx Chronic Kidney Disease: No - ENDOCRINE/METABOLIC Hx Endocrine Disorders: Yes Hx Diabetes Mellitus Type 2: Yes - HEMATOLOGICAL/ONCOLOGICAL Hx Human Immunodeficiency Virus (HIV): No - INTEGUMENTARY Hx Dermatological Problems: No - MUSCULOSKELETAL/RHEUMATOLOGICAL Hx Falls: No - GASTROINTESTINAL Hx Gastrointestinal Disorders: No - GENITOURINARY/GYNECOLOGICAL Hx Genitourinary Disorders: Yes - PSYCHIATRIC Hx Substance Use: No - SURGICAL HISTORY Hx Surgeries: Yes Other/Comment: Resected RUL nodule, mediastinoscopy. BACK SX. s/p chest tube. lung bx - ANESTHESIA Hx Anesthesia: Yes Hx Anesthesia Reactions: No Hx Malignant Hyperthermia: No Meds Allergies/Adverse Reactions: Allergies Allergy/AdvReac Type Severity Reaction Status Date / Time hydromorphone Allergy Mild RASH Verified 10/27/17 12:37 - Medications Medications: Current Medications Acetaminophen (Tylenol 325mg Tab) 650 mg PO Q4 PRN PRN Reason: Pain, Mild (1-3) Atorvastatin Calcium (Lipitor) 40 mg PO HS [facility] Last Admin: 10/27/17 22:15 Dose: 40 mg Dextrose (Dextrose 50% Inj) 0 ml IVP STAT PRN; Protocol PRN Reason: Hypoglycemia Protocol Famotidine (Pepcid) 20 mg PO DAILY [facility] Last Admin: 10/28/17 09:48 Dose: 20 mg Finasteride (Proscar) 5 mg PO [facility] Last Admin: 10/28/17 09:48 Dose: 5 mg Fluticasone Propionate (Flonase) 2 spr EDMUNDO DAILY [facility] Last Admin: 10/28/17 09:51 Dose: 2 spr Gabapentin (Neurontin) 300 mg PO HS [facility] Last Admin: 10/27/17 22:15 Dose: 300 mg Glucagon (Glucagen Diagnostic Kit) 0 mg IM STAT PRN; Protocol PRN Reason: Hypoglycemia Protocol Hydrochlorothiazide (Microzide) 12.5 mg PO DAILY [facility] Last Admin: 10/28/17 09:48 Dose: 12.5 mg Ertapenem 1 gm/ Sodium (Chloride) 100 mls @ 100 mls/hr IVPB [facility] Last Admin: 10/28/17 09:54 Dose: 100 mls/hr Methylprednisolone 30 mg/ (Sodium Chloride) 50 mls @ 100 mls/hr IVPB [facility] Insulin Detemir (Levemir) 10 units SC HS [facility] Last Admin: 10/27/17 22:14 Dose: 10 units Insulin Human Regular (Humulin R) 0 units SC ACHS [facility] PRN Reason: Protocol Last Admin: 10/28/17 09:48 Dose: Not Given Levalbuterol HCl (Xopenex) 0.63 mg IH RQ4 PRN PRN Reason: Shortness of Breath Last Admin: 10/28/17 06:16 Dose: 0.63 mg Losartan Potassium (Cozaar) 50 mg PO DAILY [facility] Last Admin: 10/28/17 09:49 Dose: 50 mg Ondansetron HCl (Zofran Inj) 4 mg IVP Q6 PRN PRN Reason: Nausea/Vomiting Repaglinide (Prandin) 1 mg PO ACBD [facility] Last Admin: 10/28/17 09:48 Dose: 1 mg Fluticasone/Salmeterol (Advair Diskus 100/50) 1 puff IH BID [facility] Last Admin: 10/28/17 09:50 Dose: 1 puff Senna/Docusate Sodium (Senokot S 50 Mg-8.6 Mg) 2 tab PO HS [facility] Last Admin: 10/27/17 22:12 Dose: 2 tab Tiotropium [place] (Spiriva) 18 mcg IH DAILY [facility] Last Admin: 10/28/17 09:50 Dose: 18 mcg Physical Exam - Additional Findings Additional findings: Appears comfortable,seated up in bed wearing HFNC for NPPV. Has small volume of dark clotted bloody expectorant in tissue at bedside. No palpable lymphadenopathy. Pharynx pink and moist. Neck is supple and trachea midline. Chest is hyper-resonant to percussion, both hemidiaphragms displaced caudally. Breath sounds are very much diminished bilaterally w/o audible wheezes. Scattered sonorous rhonchi in LL's, few medium rales, no bronchial breath sounds. Heart sounds are distant, rhythm irregular. Abdomen is soft and non-tender. No dependant edema or cyanosis. Results - Vital Signs Recent Vital Signs: Last Vital Signs Temp 97.8 F 10/28/17 08:00 Pulse 83 10/28/17 09:49 Resp 20 10/28/17 08:00 BP 149/67 10/28/17 09:49 Pulse Ox 100 10/28/17 08:00 - Labs Result Diagrams: 10/28/17 08:15 10/28/17 08:15 Labs: Laboratory Results - last 24 hr 10/27/17 10/27/17 10/27/17 13:16 13:19 13:19 WBC 6.6 RBC 3.68 L Hgb 11.6 L Hct 34.8 L MCV 94.7 H MCH 31.4 H MCHC 33.2 RDW 13.7 Plt Count 362 MPV 7.2 Neut % (Auto) 81.6 H Lymph % (Auto) 8.6 L [place] % (Auto) 7.1 Eos % (Auto) 2.1 Baso % (Auto) 0.6 Neut # (Auto) 5.4 Lymph # (Auto) 0.6 L [place] # (Auto) 0.5 Eos # (Auto) 0.1 Baso # (Auto) 0.0 Neutrophils % (Manual) 83 H Lymphocytes % (Manual) 8 L Reactive Lymphs % 1 H Monocytes % (Manual) 7 Eosinophils % (Manual) 1 Platelet Estimate Normal Spherocytes Slight PT INR APTT pCO2 55 H pO2 59 L HCO3 35.1 H ABG pH 7.46 H ABG Total CO2 40.8 H ABG O2 Saturation 95.0 ABG O2 Content 13.9 L ABG Base Excess 13.3 H ABG Hemoglobin 11.0 L ABG Carboxyhemoglobin 3.2 H POC ABG HHb (Measured) 4.7 ABG Methemoglobin 2.5 ABG O2 Capacity 14.6 L Scout Test Yes A-a O2 Difference 22.0 Hgb O2 Saturation 89.7 L FiO2 21.0 Blood Gas Comments Rroomm air,rt rad Crit Value Read Back N Sodium 140 Potassium 4.4 Chloride 98 Carbon Dioxide 36 H Anion Gap 10 BUN 18 Creatinine 0.8 Est GFR ( Amer) > 60 Est GFR (Non-Af Amer) > 60 POC Glucose (mg/dL) Random Glucose 140 H Calcium 9.0 Total Bilirubin 0.6 AST 52 ALT 78 H Alkaline Phosphatase 79 NT-Pro-B Natriuret Pep 2920 H Total Protein 6.4 Albumin 3.6 Globulin 2.8 Albumin/Globulin Ratio 1.3 10/27/17 10/27/17 10/27/17 13:19 15:08 18:12 WBC RBC Hgb Hct MCV MCH MCHC RDW Plt Count MPV Neut % (Auto) Lymph % (Auto) [place] % (Auto) Eos % (Auto) Baso % (Auto) Neut # (Auto) Lymph # (Auto) [place] # (Auto) Eos # (Auto) Baso # (Auto) Neutrophils % (Manual) Lymphocytes % (Manual) Reactive Lymphs % Monocytes % (Manual) Eosinophils % (Manual) Platelet Estimate Spherocytes PT Cancelled 13.9 H INR Cancelled 1.3 APTT Cancelled 32.7 pCO2 pO2 HCO3 ABG pH ABG Total CO2 ABG O2 Saturation ABG O2 Content ABG Base Excess ABG Hemoglobin ABG Carboxyhemoglobin POC ABG HHb (Measured) ABG Methemoglobin ABG O2 Capacity Scout Test A-a O2 Difference Hgb O2 Saturation FiO2 Blood Gas Comments Crit Value Read Back Sodium Potassium Chloride Carbon Dioxide Anion Gap BUN Creatinine Est GFR ( Amer) Est GFR (Non-Af Amer) POC Glucose (mg/dL) 205 H Random Glucose Calcium Total Bilirubin AST ALT Alkaline Phosphatase NT-Pro-B Natriuret Pep Total Protein Albumin Globulin Albumin/Globulin Ratio 10/27/17 10/28/17 10/28/17 21:29 05:47 08:15 WBC 6.9 RBC 3.52 L Hgb 11.2 L Hct 32.9 L MCV 93.3 MCH 31.8 H MCHC 34.0 RDW 13.6 Plt Count 403 H MPV Neut % (Auto) Lymph % (Auto) [place] % (Auto) Eos % (Auto) Baso % (Auto) Neut # (Auto) Lymph # (Auto) [place] # (Auto) Eos # (Auto) Baso # (Auto) Neutrophils % (Manual) Lymphocytes % (Manual) Reactive Lymphs % Monocytes % (Manual) Eosinophils % (Manual) Platelet Estimate Spherocytes PT INR APTT pCO2 pO2 HCO3 ABG pH ABG Total CO2 ABG O2 Saturation ABG O2 Content ABG Base Excess ABG Hemoglobin ABG Carboxyhemoglobin POC ABG HHb (Measured) ABG Methemoglobin ABG O2 Capacity Scout Test A-a O2 Difference Hgb O2 Saturation FiO2 Blood Gas Comments Crit Value Read Back Sodium Potassium Chloride Carbon Dioxide Anion Gap BUN Creatinine Est GFR ( Amer) Est GFR (Non-Af Amer) POC Glucose (mg/dL) 242 H 129 H Random Glucose Calcium Total Bilirubin AST ALT Alkaline Phosphatase NT-Pro-B Natriuret Pep Total Protein Albumin Globulin Albumin/Globulin Ratio 10/28/17 08:15 WBC RBC Hgb Hct MCV MCH MCHC RDW Plt Count MPV Neut % (Auto) Lymph % (Auto) [place] % (Auto) Eos % (Auto) Baso % (Auto) Neut # (Auto) Lymph # (Auto) [place] # (Auto) Eos # (Auto) Baso # (Auto) Neutrophils % (Manual) Lymphocytes % (Manual) Reactive Lymphs % Monocytes % (Manual) Eosinophils % (Manual) Platelet Estimate Spherocytes PT INR APTT pCO2 pO2 HCO3 ABG pH ABG Total CO2 ABG O2 Saturation ABG O2 Content ABG Base Excess ABG Hemoglobin ABG Carboxyhemoglobin POC ABG HHb (Measured) ABG Methemoglobin ABG O2 Capacity Scout Test A-a O2 Difference Hgb O2 Saturation FiO2 Blood Gas Comments Crit Value Read Back Sodium 140 Potassium 4.3 Chloride 100 Carbon Dioxide 38 H Anion Gap 6 L BUN 20 Creatinine 0.8 Est GFR ( Amer) > 60 Est GFR (Non-Af Amer) > 60 POC Glucose (mg/dL) Random Glucose 142 H Calcium 9.0 Total Bilirubin AST ALT Alkaline Phosphatase NT-Pro-B Natriuret Pep Total Protein Albumin Globulin Albumin/Globulin Ratio Assessment & Plan - Assessment and Plan (Free Text) Assessment: COPD exacerbation with hypoxemia. Hemoptysis, decreasing. Recent pneumothorax, left, post needle biopsy. Bilateral pleural effusions; right-transudate, left tentative thoracentesis Monday. Severe bullous emphysema. Chronic atrial fibrillation. Treat for exacerbation of COPD. Monitor volume of expectorated blood. Continue antibiotics for Enterobacter. Consider left thoracentesis. Await further results from right thoracentesis and FFB. - Date & Time Date: 10/28/17 Time: 10:42
[2017-10-28] MEDS: MethylPREDNISolone 40 mg Vial IVP SCH (11:49)
[2017-10-28] MEDS: Docusate-Senna 50 mg-8.6 mg Tab PO SCH (21:59)
[2017-10-28] MEDS: Insulin Detemir 100 Units/ml Inj SC SCH (22:00)
[2017-10-29] MEDS: Insulin Regular 100 units/ml SC SCH ×4 (06:31→21:43)
[2017-10-29] MEDS: Levalbuterol 0.63 MG/3 ML Inhal Soln UD IH PRN ×3 (08:02→19:14)
[2017-10-29] MEDS: Tiotropium 18 mcg Cap For Inhalation IH SCH (08:19)
[2017-10-29] MEDS: Fluticasone-Salmeterol 100-50mcg Diskus IH SCH ×2 (08:19→16:55)
[2017-10-29] MEDS: MethylPREDNISolone 40 mg Vial IVP SCH (08:23)
--- NOTE | 2017-10-29 10:25 | CP.PCM.PN ---
Subjective - Date & Time of Evaluation Date of Evaluation: 10/29/17 Time of Evaluation: 08:55 - Subjective Subjective: Patient seen and examined at bedside in AM. Slept well last night without any acute overnight events. Patient sitting comfortably in bed. On HFNC 25L/35%. NAD. NO dyspnea at rest. Still expectorating dark brown sputum. Denies any fever , chills, chest pain, headache, abdominal pain, nausea, vomiting. Tolerating diet well. Objective - Vital Signs/Intake and Output Vital Signs (last 24 hours): Temp Pulse Resp BP Pulse Ox 97.7 F 79 20 125/73 97 10/29/17 08:36 10/29/17 08:36 10/29/17 08:36 10/29/17 08:36 10/29/17 08:36 - Medications Medications: Current Medications Acetaminophen (Tylenol 325mg Tab) 650 mg PO Q4 PRN PRN Reason: Pain, Mild (1-3) Atorvastatin Calcium (Lipitor) 40 mg PO [facility] Last Admin: 10/28/17 21:56 Dose: 40 mg Dextrose (Dextrose 50% Inj) 0 ml IVP STAT PRN; Protocol PRN Reason: Hypoglycemia Protocol Famotidine (Pepcid) 20 mg PO DAILY [facility] Last Admin: 10/29/17 08:23 Dose: 20 mg Finasteride (Proscar) 5 mg PO DAILY [facility] Last Admin: 10/29/17 08:23 Dose: 5 mg Fluticasone Propionate (Flonase) 2 spr EDMUNDO DAILY [facility] Last Admin: 10/29/17 08:22 Dose: 2 spr Gabapentin (Neurontin) 300 mg PO [facility] Last Admin: 10/28/17 21:56 Dose: 300 mg Glucagon (Glucagen Diagnostic Kit) 0 mg IM STAT PRN; Protocol PRN Reason: Hypoglycemia Protocol Hydrochlorothiazide (Microzide) 12.5 mg PO DAILY [facility] Last Admin: 10/29/17 08:23 Dose: 12.5 mg Ertapenem 1 gm/ Sodium (Chloride) 100 mls @ 100 mls/hr IVPB [facility] Last Admin: 10/29/17 08:24 Dose: 100 mls/hr Insulin Detemir (Levemir) 10 units SC [facility] Last Admin: 10/28/17 22:00 Dose: 10 units Insulin Human Regular (Humulin R) 0 units SC [facility] PRN Reason: Protocol Last Admin: 10/29/17 06:31 Dose: Not Given Levalbuterol HCl (Xopenex) 0.63 mg IH RQ4 PRN PRN Reason: Shortness of Breath Last Admin: 10/29/17 08:02 Dose: 0.63 mg Losartan Potassium (Cozaar) 50 mg PO DAILY [facility] Last Admin: 10/29/17 08:22 Dose: 50 mg Methylprednisolone (Solu-Medrol) 30 mg IVP [facility]ILY [facility] Last Admin: 10/29/17 08:23 Dose: 30 mg Ondansetron HCl (Zofran Inj) 4 mg IVP Q6 PRN PRN Reason: Nausea/Vomiting Repaglinide (Prandin) 1 mg PO ACBD [facility] Last Admin: 10/29/17 08:23 Dose: 1 mg Fluticasone/Salmeterol (Advair Diskus 100/50) 1 puff IH BID [facility] Last Admin: 10/29/17 08:19 Dose: 1 puff Senna/Docusate Sodium (Senokot S 50 Mg-8.6 Mg) 2 tab PO HS [facility] Last Admin: 10/28/17 21:59 Dose: Not Given Tiotropium [place] (Spiriva) 18 mcg IH [facility]ILY [facility] Last Admin: 10/29/17 08:19 Dose: 18 mcg - Labs Labs: 10/28/17 08:15 10/28/17 08:15 PT 13.9 Seconds (9.8-13.1) H 10/27/17 15:08 INR 1.3 10/27/17 15:08 APTT 32.7 Seconds (25.6-37.1) 10/27/17 15:08 - Constitutional Appears: Non-toxic, No Acute Distress - Head Exam Head Exam: ATRAUMATIC, NORMAL INSPECTION, NORMOCEPHALIC - Eye Exam Eye Exam: Normal appearance, PERRL - ENT Exam ENT Exam: Mucous Membranes Moist - Respiratory Exam Respiratory Exam: Decreased Breath Sounds, Rales, Rhonchi, NORMAL BREATHING PATTERN. absent: Respiratory Distress - Cardiovascular Exam Cardiovascular Exam: Irregular Rhythm, +S1, +S2. absent: Murmur - GI/Abdominal Exam GI & Abdominal Exam: Soft, Normal Bowel Sounds. absent: Guarding, Rigid, Tenderness - Extremities Exam Extremities Exam: absent: Calf Tenderness, Pedal Edema, Tenderness - Neurological Exam Neurological Exam: Alert, Awake, Oriented x3 - Psychiatric Exam Psychiatric exam: Normal Affect, Normal Mood - Skin Skin Exam: Dry, Intact, Normal Color Assessment and Plan - Assessment and Plan (Free Text) Assessment: 76 y/o M with PMH of DM2, HTN, COPD, atrial fibrillation and hx of lung nodule ( Dx with organizing pneumonia) admitted to worsening shortness of breath, hypoxemia, and dark brown/maroon sputum. 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 - stable, patient breathing comfortably on HFNC 25L/35%O2 - CTA Chest: 1. No CT evidence of acute pulmonary embolus. 2. Extensive COPD again appreciated with variable fibrosis and apical nodularity as discussed above. Stable large pneumatocele or bulla at the right middle lobe inferiorly, containing diminishing fluid volume potentially reflecting late subacute or chronic hematocele. Pyocele or abscess is not favored given lack of contrast enhancement. 3. Stable [id number] bilateral pleural effusions reiterated, likely loculated at the left. 4. Stable small left adrenal nodule. - S/P thoracentesis and bronchoscopy: cultures and cytology done - Dr Hameed, Pulmonary consult on board: Will follow recommendations. - continue with spiriva. - Xopenex q6 scheduled, as well as PRN - C/W Solumedrol 30 mg IVP as per Pulm. - Consider left sided thoracentesis as per Pulm. Bloody sputum/Hemoptysis - Persists - Grossly blood, + Enterobacter Cloacea ssp - Ertepenum Day 4, Will continue while in house, upon discharge switch to Vantin PO(total 7 days ABx) - ID on board: Will follow recommendations - Pulmonary consult on board: Recommendations appreciated. - Hold Lovenox and Coumadin as per Dr. Hameed - S/P Bronchoscopy 10/26/17 - Will monitor status Atrial Fibrillation -Chronic, asymptomatic -Was previously on digoxin, but this was d/c by Dr. Last in May due to detection of brief pauses EKG -no beta blockers as patient has limited respiratory reserve -Hold anticoagulation as per pulm -Refining Supervisor Dr. Lats on board: Will follow recommendations. Left Lung Nodule, s/p Lung Biopsy on 10/04/17 at [facility] -bx showed cryptococcal organized pneumonia at [facility] Diabetes Mellitus type 2 -Chronic, controlled -Last HBA1C: 7.7 on 05/2017 -Repaglinide 1mg PO BID -Continue with home medications: Levemir 10 SC QHS. Insulin regular coverage scale added -Hypoglycemic treatment protocol in place -AccuChecks ACHS Hypertension -Chronic, controlled -C/w Losartan 50 mg PO QD -HCTZ held as BP was running low -monitor BP HLD -chronic, controlled -continue home medication: atorvastatin 40mg Hx of Blood cultures positive for gram+ cocci -repeat cultures neg, resolved. DVT Prophylaxis -SCDs -Lovenox and Coumadin on hold -Discussed risks and benefits w/ hospital admitting clerk and hand tier Diet: Heart Healthy diet, consistent carbohydrate mod Code Status: -Full Code -Next of kin: , [place] [phone]
--- NOTE | 2017-10-29 12:49 | CP.PCM.CON ---
History of Present Illness - History of Present Illness History of Present Illness: Pt with history of severe COPD and recurrent admissions, prolonged hosptalization, says he is doing better today. Sputum culture and BAL positive for Enterobacter cloacae and started on Ertapenem and ID consulted Past Patient History - Past Medical History & Family History Past Medical History?: Yes - Past Social History Smoking Status: Former Smoker - CARDIAC Hx Atrial Fibrillation: Yes Hx Cardia Arrhythmia: Yes Hx Hypercholesterolemia: Yes Hx Hypertension: Yes - PULMONARY Hx Respiratory Disorders: Yes (Organizing pneumonia) Hx Chronic Obstructive Pulmonary Disease (COPD): Yes Hx Emphysema: Yes Hx Pneumonia: Yes - NEUROLOGICAL Hx Neurological Disorder: No - HEENT Hx HEENT Problems: No - RENAL Hx Chronic Kidney Disease: No - ENDOCRINE/METABOLIC Hx Endocrine Disorders: Yes Hx Diabetes Mellitus Type 2: Yes - HEMATOLOGICAL/ONCOLOGICAL Hx Human Immunodeficiency Virus (HIV): No - INTEGUMENTARY Hx Dermatological Problems: No - MUSCULOSKELETAL/RHEUMATOLOGICAL Hx Falls: No - GASTROINTESTINAL Hx Gastrointestinal Disorders: No - GENITOURINARY/GYNECOLOGICAL Hx Genitourinary Disorders: Yes - PSYCHIATRIC Hx Substance Use: No - SURGICAL HISTORY Hx Surgeries: Yes Other/Comment: Resected RUL nodule, mediastinoscopy. BACK SX. s/p chest tube. lung bx - ANESTHESIA Hx Anesthesia: Yes Hx Anesthesia Reactions: No Hx Malignant Hyperthermia: No Meds Allergies/Adverse Reactions: Allergies Allergy/AdvReac Type Severity Reaction Status Date / Time hydromorphone Allergy Mild RASH Verified 10/27/17 12:37 - Medications Medications: Current Medications Acetaminophen (Tylenol 325mg Tab) 650 mg PO Q4 PRN PRN Reason: Pain, Mild (1-3) Atorvastatin Calcium (Lipitor) 40 mg PO HS [facility] Last Admin: 10/28/17 21:56 Dose: 40 mg Dextrose (Dextrose 50% Inj) 0 ml IVP STAT PRN; Protocol PRN Reason: Hypoglycemia Protocol Famotidine (Pepcid) 20 mg PO DAILY [facility] Last Admin: 10/29/17 08:23 Dose: 20 mg Finasteride (Proscar) 5 mg PO DAILY [facility] Last Admin: 10/29/17 08:23 Dose: 5 mg Fluticasone Propionate (Flonase) 2 spr EDMUNDO DAILY [facility] Last Admin: 10/29/17 08:22 Dose: 2 spr Gabapentin (Neurontin) 300 mg PO HS [facility] Last Admin: 08/25/18 21:56 Dose: 300 mg Glucagon (Glucagen Diagnostic Kit) 0 mg IM STAT PRN; Protocol PRN Reason: Hypoglycemia Protocol Hydrochlorothiazide (Microzide) 12.5 mg PO DAILY [facility] Last Admin: 10/29/17 08:23 Dose: 12.5 mg Ertapenem 1 gm/ Sodium (Chloride) 100 mls @ 100 mls/hr IVPB DAILY [facility] Last Admin: 10/29/17 08:24 Dose: 100 mls/hr Insulin Detemir (Levemir) 10 units SC HS [facility] Last Admin: 10/28/17 22:00 Dose: 10 units Insulin Human Regular (Humulin R) 0 units SC [facility] PRN Reason: Protocol Last Admin: 10/29/17 12:13 Dose: 2 units Levalbuterol HCl (Xopenex) 0.63 mg IH RQ4 PRN PRN Reason: Shortness of Breath Last Admin: 10/29/17 08:02 Dose: 0.63 mg Losartan Potassium (Cozaar) 50 mg PO DAILY [facility] Last Admin: 10/29/17 08:22 Dose: 50 mg Methylprednisolone (Solu-Medrol) 30 mg IVP DAILY [facility] Last Admin: 10/29/17 08:23 Dose: 30 mg Ondansetron HCl (Zofran Inj) 4 mg IVP Q6 PRN PRN Reason: Nausea/Vomiting Repaglinide (Prandin) 1 mg PO ACBD [facility] Last Admin: 10/29/17 08:23 Dose: 1 mg Fluticasone/Salmeterol (Advair Diskus 100/50) 1 puff IH BID [facility] Last Admin: 10/29/17 08:19 Dose: 1 puff Senna/Docusate Sodium (Senokot S 50 Mg-8.6 Mg) 2 tab PO HS [facility] Last Admin: 10/28/17 21:59 Dose: Not Given Tiotropium [place] (Spiriva) 18 mcg IH DAILY [facility] Last Admin: 10/29/17 08:19 Dose: 18 mcg Physical Exam - Respiratory Exam Respiratory Exam: Rhonchi Results - Vital Signs Recent Vital Signs: Last Vital Signs Temp 97.8 F 10/29/17 12:27 Pulse 93 H 10/29/17 12:27 Resp 20 10/29/17 12:27 BP 145/65 10/29/17 12:27 Pulse Ox 99 10/29/17 12:27 - Labs Result Diagrams: 10/28/17 08:15 10/28/17 08:15 Labs: Laboratory Results - last 24 hr 10/28/17 10/28/17 10/29/17 16:19 21:29 05:55 POC Glucose (mg/dL) 90 96 86 10/29/17 10:56 POC Glucose (mg/dL) 188 H Assessment & Plan - Assessment and Plan (Free Text) Assessment: COPD with bullous lesions and effusions with enterobacter cloacae started on Ertapenem yesterday. Continue for 6 more days. If being discharged, then Vantin 200mg po bid to complete antibiotic therapy for 7 days
[2017-10-29] MEDS: Docusate-Senna 50 mg-8.6 mg Tab PO SCH ×2 (21:41→21:43)
[2017-10-29] MEDS: Insulin Detemir 100 Units/ml Inj SC SCH (21:45)
[2017-10-30] MEDS: Insulin Regular 100 units/ml SC SCH ×4 (06:46→21:35)
[2017-10-30] MEDS: Levalbuterol 0.63 MG/3 ML Inhal Soln UD IH PRN (07:31)
[2017-10-30] MEDS: Tiotropium 18 mcg Cap For Inhalation IH SCH (08:41)
[2017-10-30] MEDS: Fluticasone-Salmeterol 100-50mcg Diskus IH SCH ×2 (08:41→16:25)
[2017-10-30] MEDS: MethylPREDNISolone 40 mg Vial IVP SCH (08:41)
--- NOTE | 2017-10-30 08:46 | CP.PCM.PN ---
Subjective - Date & Time of Evaluation Date of Evaluation: 10/30/17 Time of Evaluation: 07:40 - Subjective Subjective: Patient seen and evaluated at bedside this morning. NAD. No acute events overnight. 2 episodes of dark brown sputum yesterday and 1 episode today. Currently on HFNC 25L/35%. Patient went to bathroom on NC without getting significantly SOB. Denies any CP, headache, dizziness, nausea, vomiting, urinary Sx. Tolerating diet well PO. Patient seen S/P thoracentessis today. Breathing comfortably on HFNC 25L/30%. No acute distress or dyspnea. Vitals stable. Objective - Vital Signs/Intake and Output Vital Signs (last 24 hours): Temp Pulse Resp BP Pulse Ox 97.8 F 82 20 153/80 H 100 10/30/17 08:25 10/30/17 08:42 10/30/17 08:25 10/30/17 08:42 10/30/17 08:25 - Medications Medications: Current Medications Acetaminophen (Tylenol 325mg Tab) 650 mg PO Q4 PRN PRN Reason: Pain, Mild (1-3) Atorvastatin Calcium (Lipitor) 40 mg PO [facility] Last Admin: 10/29/17 21:41 Dose: 40 mg Dextrose (Dextrose 50% Inj) 0 ml IVP STAT PRN; Protocol PRN Reason: Hypoglycemia Protocol Famotidine (Pepcid) 20 mg PO DAILY [facility] Last Admin: 10/30/17 08:42 Dose: 20 mg Finasteride (Proscar) 5 mg PO DAILY [facility] Last Admin: 10/30/17 08:43 Dose: 5 mg Fluticasone Propionate (Flonase) 2 spr EDMUNDO DAILY [facility] Last Admin: 10/30/17 08:42 Dose: 2 spr Gabapentin (Neurontin) 300 mg PO [facility] Last Admin: 10/29/17 21:41 Dose: 300 mg Glucagon (Glucagen Diagnostic Kit) 0 mg IM STAT PRN; Protocol PRN Reason: Hypoglycemia Protocol Hydrochlorothiazide (Microzide) 12.5 mg PO DAILY [facility] Last Admin: 10/30/17 08:42 Dose: 12.5 mg Ertapenem 1 gm/ Sodium (Chloride) 100 mls @ 100 mls/hr IVPB DAILY [facility] Last Admin: 10/30/17 08:44 Dose: 100 mls/hr Insulin Detemir (Levemir) 8 units SC [facility] Insulin Human Regular (Humulin R) 0 units SC ACHS [facility] PRN Reason: Protocol Last Admin: 10/30/17 06:46 Dose: Not Given Levalbuterol HCl (Xopenex) 0.63 mg IH RQ4 PRN PRN Reason: Shortness of Breath Last Admin: 10/30/17 07:31 Dose: 0.63 mg Losartan Potassium (Cozaar) 50 mg PO DAILY [facility] Last Admin: 10/30/17 08:42 Dose: 50 mg Methylprednisolone (Solu-Medrol) 30 mg IVP DAILY [facility] Last Admin: 10/30/17 08:41 Dose: 30 mg Ondansetron HCl (Zofran Inj) 4 mg IVP Q6 PRN PRN Reason: Nausea/Vomiting Repaglinide (Prandin) 1 mg PO ACBD [facility] Last Admin: 10/30/17 08:42 Dose: 1 mg Fluticasone/Salmeterol (Advair Diskus 100/50) 1 puff IH BID [facility] Last Admin: 10/30/17 08:41 Dose: 1 puff Senna/Docusate Sodium (Senokot S 50 Mg-8.6 Mg) 2 tab PO HS [facility] Last Admin: 10/29/17 21:43 Dose: Not Given Tiotropium [place] (Spiriva) 18 mcg IH DAILY [facility] Last Admin: 10/30/17 08:41 Dose: 18 mcg - Labs Labs: 10/28/17 08:15 10/28/17 08:15 PT 13.9 Seconds (9.8-13.1) H 10/27/17 15:08 INR 1.3 10/27/17 15:08 APTT 32.7 Seconds (25.6-37.1) 10/27/17 15:08 - Constitutional Appears: Well, Non-toxic, No Acute Distress - Head Exam Head Exam: ATRAUMATIC, NORMAL INSPECTION, NORMOCEPHALIC - Eye Exam Eye Exam: Normal appearance, PERRL - ENT Exam ENT Exam: Mucous Membranes Moist - Neck Exam Neck Exam: Full ROM - Respiratory Exam Respiratory Exam: Chest Wall Tenderness, Decreased Breath Sounds, Rhonchi, NORMAL BREATHING PATTERN - Cardiovascular Exam Cardiovascular Exam: Irregular Rhythm, +S1, +S2 - GI/Abdominal Exam GI & Abdominal Exam: Soft, Normal Bowel Sounds. absent: Guarding, Rigid, Tenderness - Extremities Exam Extremities Exam: absent: Pedal Edema, Tenderness - Back Exam Back Exam: absent: CVA tenderness (L), CVA tenderness (R), tenderness - Neurological Exam Neurological Exam: Alert, Awake, Oriented x3 - Psychiatric Exam Psychiatric exam: Normal Affect, Normal Mood - Skin Skin Exam: Dry, Intact, Normal Color Assessment and Plan - Assessment and Plan (Free Text) Assessment: 76 y/o M with PMH of DM2, HTN, COPD, atrial fibrillation and hx of lung nodule ( Dx with organizing pneumonia) admitted to worsening shortness of breath, hypoxemia, and dark brown/maroon sputum. S/P thoracentesis today. 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 - stable, patient breathing comfortably on HFNC 25L/35%O2 - CTA Chest: 1. No CT evidence of acute pulmonary embolus. 2. Extensive COPD again appreciated with variable fibrosis and apical nodularity as discussed above. Stable large pneumatocele or bulla at the right middle lobe inferiorly, containing diminishing fluid volume potentially reflecting late subacute or chronic hematocele. Pyocele or abscess is not favored given lack of contrast enhancement. 3. Stable [id number] bilateral pleural effusions reiterated, likely loculated at the left. 4. Stable small left adrenal nodule. - S/P thoracentesis and bronchoscopy: cultures and cytology done - Dr Hameed, Pulmonary consult on board: Will follow recommendations. - continue with spiriva. - Xopenex q6 scheduled, as well as PRN - C/W Solumedrol 30 mg IVP as per Pulm. - S/P thoracentesis today. Drained about 1 L strew colored fluid. Sent for cytology, fluid analysis. Bloody sputum/Hemoptysis - Persists - Grossly blood, + Enterobacter Cloacea ssp - Ertepenum Day 5,(Total 8 days), upon discharge switch to Bactrim PO - ID on board: Will follow recommendations - Pulmonary consult on board: Recommendations appreciated. - Hold Lovenox, Resume Warfarin - S/P Bronchoscopy 10/26/17 and 2 x thoracentesis. 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 -Resume Warfarin 5 mg PO QD, F/U PT, INR -CBC, PT tomorrow AM. 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 Insulin regular coverage scale added -Hypoglycemic treatment protocol in place -AccuChecks ACHS Hypertension -Chronic, controlled -C/w Losartan 50 mg PO QD -HCTZ held as BP was running low -monitor BP HLD -chronic, controlled -continue home medication: atorvastatin 40mg DVT Prophylaxis -SCDs -Resume Warfarin 5 mg PO QD as per Cardio. 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
--- NOTE | 2017-10-30 09:13 | CP.PCM.PN ---
Subjective - Date & Time of Evaluation Date of Evaluation: 10/30/17 Time of Evaluation: 08:25 - Subjective Subjective: Still has significant effort intolerence related to his COPD Mildly dyspnoic at rest (Could not walk to BR) A Fib at 70-80 BPM on telemetry BP 124/70 mm Hg JVP flat, no oedema over feet Still brings up old blood (No fresh blood hemoptysis for >7 days) Pt expects to have Lt pleural tap (will start Warfarin after that) Objective - Vital Signs/Intake and Output Vital Signs (last 24 hours): Temp Pulse Resp BP Pulse Ox 97.8 F 82 20 153/80 H 100 10/30/17 08:25 10/30/17 08:42 10/30/17 08:25 10/30/17 08:42 10/30/17 08:25 - Medications Medications: Current Medications Acetaminophen (Tylenol 325mg Tab) 650 mg PO Q4 PRN PRN Reason: Pain, Mild (1-3) Atorvastatin Calcium (Lipitor) 40 mg PO HS [facility] Last Admin: 10/29/17 21:41 Dose: 40 mg Dextrose (Dextrose 50% Inj) 0 ml IVP STAT PRN; Protocol PRN Reason: Hypoglycemia Protocol Famotidine (Pepcid) 20 mg PO DAILY [facility] Last Admin: 10/30/17 08:42 Dose: 20 mg Finasteride (Proscar) 5 mg PO DAILY [facility] Last Admin: 10/30/17 08:43 Dose: 5 mg Fluticasone Propionate (Flonase) 2 spr EDMUNDO DAILY [facility] Last Admin: 10/30/17 08:42 Dose: 2 spr Gabapentin (Neurontin) 300 mg PO HS [facility] Last Admin: 10/29/17 21:41 Dose: 300 mg Glucagon (Glucagen Diagnostic Kit) 0 mg IM STAT PRN; Protocol PRN Reason: Hypoglycemia Protocol Hydrochlorothiazide (Microzide) 12.5 mg PO DAILY [facility] Last Admin: 10/30/17 08:42 Dose: 12.5 mg Ertapenem 1 gm/ Sodium (Chloride) 100 mls @ 100 mls/hr IVPB DAILY [facility] Last Admin: 10/30/17 08:44 Dose: 100 mls/hr Insulin Detemir (Levemir) 8 units SC HS [facility] Insulin Human Regular (Humulin R) [address] [facility] PRN Reason: Protocol Last Admin: 10/30/17 06:46 Dose: Not Given Levalbuterol HCl (Xopenex) 0.63 mg IH RQ4 PRN PRN Reason: Shortness of Breath Last Admin: 10/30/17 07:31 Dose: 0.63 mg Losartan Potassium (Cozaar) 50 mg PO DAILY [facility] Last Admin: 10/30/17 08:42 Dose: 50 mg Methylprednisolone (Solu-Medrol) 30 mg IVP DAILY [facility] Last Admin: 10/30/17 08:41 Dose: 30 mg Ondansetron HCl (Zofran Inj) 4 mg IVP Q6 PRN PRN Reason: Nausea/Vomiting Repaglinide (Prandin) 1 mg PO ACBD [facility] Last Admin: 10/30/17 08:42 Dose: 1 mg Fluticasone/Salmeterol (Advair Diskus 100/50) 1 puff IH BID [facility] Last Admin: 10/30/17 08:41 Dose: 1 puff Senna/Docusate Sodium (Senokot S 50 Mg-8.6 Mg) 2 tab PO HS [facility] Last Admin: 10/29/17 21:43 Dose: Not Given Tiotropium [place] (Spiriva) 18 mcg IH DAILY [facility] Last Admin: 10/30/17 08:41 Dose: 18 mcg - Labs Labs: 10/28/17 08:15 10/28/17 08:15 PT 13.9 Seconds (9.8-13.1) H 10/27/17 15:08 INR 1.3 10/27/17 15:08 APTT 32.7 Seconds (25.6-37.1) 10/27/17 15:08
--- NOTE | 2017-10-30 09:51 | CP.PCM.PN ---
Subjective - Date & Time of Evaluation Date of Evaluation: 10/30/17 Time of Evaluation: 08:45 - Subjective Subjective: Pulmonology note for Dr. Hameed: Mr. Luke was seen and evaluated at bedside this morning. He reported spitting up 3 small volumes of dark, clotted expectorant, which was followed by episode of blood-free, clear expectorant. As per RN and per patient, he was able to walk to the bathroom over the weekend and was able to be on 4L NC for 1 hr prior to requiring high flow O2 again. Reports he has increased appetite as well. He is agreeable to left sided thoracentesis today. Objective - Vital Signs/Intake and Output Vital Signs (last 24 hours): Temp Pulse Resp BP Pulse Ox 97.8 F 82 20 153/80 H 100 10/30/17 08:25 10/30/17 08:42 10/30/17 08:25 10/30/17 08:42 10/30/17 08:25 - Medications Medications: Current Medications Acetaminophen (Tylenol 325mg Tab) 650 mg PO Q4 PRN PRN Reason: Pain, Mild (1-3) Atorvastatin Calcium (Lipitor) 40 mg PO HS [facility] Last Admin: 10/29/17 21:41 Dose: 40 mg Dextrose (Dextrose 50% Inj) 0 ml IVP STAT PRN; Protocol PRN Reason: Hypoglycemia Protocol Famotidine (Pepcid) 20 mg PO DAILY [facility] Last Admin: 10/30/17 08:42 Dose: 20 mg Finasteride (Proscar) 5 mg PO DAILY [facility] Last Admin: 10/30/17 08:43 Dose: 5 mg Fluticasone Propionate (Flonase) 2 spr EDMUNDO DAILY [facility] Last Admin: 10/30/17 08:42 Dose: 2 spr Gabapentin (Neurontin) 300 mg PO HS [facility] Last Admin: 10/29/17 21:41 Dose: 300 mg Glucagon (Glucagen Diagnostic Kit) 0 mg IM STAT PRN; Protocol PRN Reason: Hypoglycemia Protocol Hydrochlorothiazide (Microzide) 12.5 mg PO DAILY [facility] Last Admin: 10/30/17 08:42 Dose: 12.5 mg Ertapenem 1 gm/ Sodium (Chloride) 100 mls @ 100 mls/hr IVPB DAILY [facility] Last Admin: 10/30/17 08:44 Dose: 100 mls/hr Insulin Detemir (Levemir) 8 units SC HS [facility] Insulin Human Regular (Humulin R) 0 units SC ACHS [facility] PRN Reason: Protocol Last Admin: 10/30/17 06:46 Dose: Not Given Levalbuterol HCl (Xopenex) 0.63 mg IH RQ4 PRN PRN Reason: Shortness of Breath Last Admin: 10/30/17 07:31 Dose: 0.63 mg Losartan Potassium (Cozaar) 50 mg PO DAILY [facility] Last Admin: 10/30/17 08:42 Dose: 50 mg Methylprednisolone (Solu-Medrol) 30 mg IVP DAILY [facility] Last Admin: 10/30/17 08:41 Dose: 30 mg Ondansetron HCl (Zofran Inj) 4 mg IVP Q6 PRN PRN Reason: Nausea/Vomiting Repaglinide (Prandin) 1 mg PO ACBD [facility] Last Admin: 10/30/17 08:42 Dose: 1 mg Fluticasone/Salmeterol (Advair Diskus 100/50) 1 puff IH BID [facility] Last Admin: 10/30/17 08:41 Dose: 1 puff Senna/Docusate Sodium (Senokot S 50 Mg-8.6 Mg) 2 tab PO HS [facility] Last Admin: 10/29/17 21:43 Dose: Not Given Tiotropium [place] (Spiriva) 18 mcg IH DAILY [facility] Last Admin: 10/30/17 08:41 Dose: 18 mcg - Labs Labs: 10/28/17 08:15 10/28/17 08:15 PT 13.9 Seconds (9.8-13.1) H 10/27/17 15:08 INR 1.3 10/27/17 15:08 APTT 32.7 Seconds (25.6-37.1) 10/27/17 15:08 - Constitutional Appears: No Acute Distress - Head Exam Additional comments: wearing HFNC - Eye Exam Eye Exam: Normal appearance - Respiratory Exam Respiratory Exam: Decreased Breath Sounds (diminished breath sounds bilaterally) . absent: Accessory Muscle Use, Wheezes - GI/Abdominal Exam GI & Abdominal Exam: Soft - Extremities Exam Extremities Exam: absent: Calf Tenderness, Pedal Edema Additional comments: no cyanosis - Neurological Exam Neurological Exam: Alert, Oriented x3 - Skin Skin Exam: Normal Color, Warm Assessment and Plan (1) COPD exacerbation Assessment & Plan: Continue with advair, xopenex, steroids, spiriva HFNC as ordered Status: Acute (2) Pleural effusion Assessment & Plan: s/p R sided thoracentesis for pleural effusion last week left sided thoracentesis pending today; cytology and fluid analysis ordered Status: Acute (3) Cough with hemoptysis Assessment & Plan: Positive sputum cultures and bronchial washings (from TCU admission); continue with antibiotics Await results of cytology from bronchial washings; cytology from sputum neg Status: Chronic (4) Atrial fibrillation Status: Chronic
[2017-10-30] MEDS ORDERED: Lidocaine 1% 5ml Abboject IV ONE (10:32)
--- NOTE | 2017-10-30 10:57 | PCM.SURG1 ---
Surgeon's Initial Post Op Note - Surgeon's Notes Surgeon: Kaden Lundberg MD Kitchen Cleaner: NONE Type of Anesthesia: Local Pre-Operative Diagnosis: Pleural effusion Operative Findings: US showed moderate left pleural effusion Post-Operative Diagnosis: Pleural effusion Operation Performed: US guided left thoracentesis Specimen/Specimens Removed: 1 liter of straw colored fluid Estimated Blood Loss: EBL {In ML}: 0 Blood Products Given: N/A Drains Used: No Drains Post-Op Condition: Fair Date of Surgery/Procedure: 10/30/17 Time of Surgery/Procedure: 10:55
--- NOTE | 2017-10-30 11:15 | CP.PCM.PN ---
Subjective - Date & Time of Evaluation Date of Evaluation: 10/30/17 Time of Evaluation: 11:15 - Subjective Subjective: ID note- Pt. seen and examined today on telemetry floor. pt. is s/p left sided thoracentheis today for pleural effusion. had right thoracentheisis and bronch last week. both sputum cx and last week's pleural fluid cx- Enterobacater cloacea and the pleural fluid cx also grew K.pneumonia both sensitive to the carbapenems. pt. denies any sob and denies any fever or chills. has good appetite. denies any diarrhea. wishes to go home soon. his is at his bedside as well. Objective - Vital Signs/Intake and Output Vital Signs (last 24 hours): Temp Pulse Resp BP Pulse Ox 98.4 F 89 18 162/82 H 99 10/30/17 10:40 10/30/17 10:56 10/30/17 10:56 10/30/17 10:56 10/30/17 11:07 - Medications Medications: Current Medications Acetaminophen (Tylenol 325mg Tab) 650 mg PO Q4 PRN PRN Reason: Pain, Mild (1-3) Atorvastatin Calcium (Lipitor) 40 mg PO HS [facility] Last Admin: 10/29/17 21:41 Dose: 40 mg Dextrose (Dextrose 50% Inj) 0 ml IVP STAT PRN; Protocol PRN Reason: Hypoglycemia Protocol Famotidine (Pepcid) 20 mg PO DAILY [facility] Last Admin: 10/30/17 08:42 Dose: 20 mg Finasteride (Proscar) 5 mg PO DAILY [facility] Last Admin: 10/30/17 08:43 Dose: 5 mg Fluticasone Propionate (Flonase) 2 spr EDMUNDO DAILY [facility] Last Admin: 10/30/17 08:42 Dose: 2 spr Gabapentin (Neurontin) 300 mg PO HS [facility] Last Admin: 10/29/17 21:41 Dose: 300 mg Glucagon (Glucagen Diagnostic Kit) 0 mg IM STAT PRN; Protocol PRN Reason: Hypoglycemia Protocol Hydrochlorothiazide (Microzide) 12.5 mg PO DAILY [facility] Last Admin: 10/30/17 08:42 Dose: 12.5 mg Ertapenem 1 gm/ Sodium (Chloride) 100 mls @ 100 mls/hr IVPB DAILY [facility] Last Admin: 10/30/17 08:44 Dose: 100 mls/hr Insulin Detemir (Levemir) 8 units SC HS [facility] Insulin Human Regular (Humulin R) 0 units SC ACHS [facility] PRN Reason: Protocol Last Admin: 10/30/17 06:46 Dose: Not Given Levalbuterol HCl (Xopenex) 0.63 mg IH RQ4 PRN PRN Reason: Shortness of Breath Last Admin: 10/30/17 07:31 Dose: 0.63 mg Losartan Potassium (Cozaar) 50 mg PO DAILY [facility] Last Admin: 10/30/17 08:42 Dose: 50 mg Methylprednisolone (Solu-Medrol) 30 mg IVP DAILY [facility] Last Admin: 10/30/17 08:41 Dose: 30 mg Ondansetron HCl (Zofran Inj) 4 mg IVP Q6 PRN PRN Reason: Nausea/Vomiting Repaglinide (Prandin) 1 mg PO ACBD [facility] Last Admin: 10/30/17 08:42 Dose: 1 mg Fluticasone/Salmeterol (Advair Diskus 100/50) 1 puff IH BID [facility] Last Admin: 10/30/17 08:41 Dose: 1 puff Senna/Docusate Sodium (Senokot S 50 Mg-8.6 Mg) 2 tab PO HS [facility] Last Admin: 10/29/17 21:43 Dose: Not Given Tiotropium [place] (Spiriva) 18 mcg IH DAILY [facility] Last Admin: 10/30/17 08:41 Dose: 18 mcg - Labs Labs: - Additional Findings Additional findings: - Constitutional Appears: NAD - Head Exam Head Exam: ATRAUMATIC - Eye Exam Eye Exam: EOMI, PERRL - ENT Exam ENT Exam: Normal Oropharynx - Neck Exam Neck exam: Positive for: Full Rom - Respiratory Exam Additional comments: breath sounds heard b/l, slightly muffled at the bases no wheezing - Cardiovascular Exam Cardiovascular Exam: S1S2 +S1, +S2 - GI/Abdominal Exam GI & Abdominal Exam: Normal Bowel Sounds, Soft Additional comments: NT, ND - Extremities Exam Extremities exam: Positive for: normal inspection Additional comments: no edema B/L LE - Neurological Exam Neurological exam: Alert, Oriented x 3 Laboratory Results - last 72 hr 10/27/17 10/27/17 10/27/17 13:16 13:19 13:19 WBC RBC Hgb Hct MCV MCH MCHC RDW Plt Count Neutrophils % (Manual) 83 H Lymphocytes % (Manual) 8 L Reactive Lymphs % 1 H Monocytes % (Manual) 7 Eosinophils % (Manual) 1 Platelet Estimate Normal Spherocytes Slight PT INR APTT pCO2 55 H pO2 59 L HCO3 35.1 H ABG pH 7.46 H ABG Total CO2 40.8 H ABG O2 Saturation 95.0 ABG O2 Content 13.9 L ABG Base Excess 13.3 H ABG Hemoglobin 11.0 L ABG Carboxyhemoglobin 3.2 H POC ABG HHb (Measured) 4.7 ABG Methemoglobin 2.5 ABG O2 Capacity 14.6 L Scout Test Yes A-a O2 Difference 22.0 Hgb O2 Saturation 89.7 L FiO2 21.0 Blood Gas Comments Rroomm air,rt rad Crit Value Read Back N Sodium 140 Potassium 4.4 Chloride 98 Carbon Dioxide 36 H Anion Gap 10 BUN 18 Creatinine 0.8 Est GFR ( Amer) > 60 Est GFR (Non-Af Amer) > 60 POC Glucose (mg/dL) Random Glucose 140 H Calcium 9.0 Total Bilirubin 0.6 AST 52 ALT 78 H Alkaline Phosphatase 79 Lactate Dehydrogenase NT-Pro-B Natriuret Pep 2920 H Total Protein 6.4 Albumin 3.6 Globulin 2.8 Albumin/Globulin Ratio 1.3 Fluid Source Fluid Appearance Fluid WBC Fluid RBC Fluid Tot Cell Count Fluid Neutrophils Fluid Lymphocytes Fld Monocyte/Macrophag Fluid Glucose Fluid Total Protein Fluid LDH Fluid Triglycerides Fluid Comment 10/27/17 10/27/17 10/27/17 13:19 15:08 18:12 WBC RBC Hgb Hct MCV MCH MCHC RDW Plt Count Neutrophils % (Manual) Lymphocytes % (Manual) Reactive Lymphs % Monocytes % (Manual) Eosinophils % (Manual) Platelet Estimate Spherocytes PT Cancelled 13.9 H INR Cancelled 1.3 APTT Cancelled 32.7 pCO2 pO2 HCO3 ABG pH ABG Total CO2 ABG O2 Saturation ABG O2 Content ABG Base Excess ABG Hemoglobin ABG Carboxyhemoglobin POC ABG HHb (Measured) ABG Methemoglobin ABG O2 Capacity Scout Test A-a O2 Difference Hgb O2 Saturation FiO2 Blood Gas Comments Crit Value Read Back Sodium Potassium Chloride Carbon Dioxide Anion Gap BUN Creatinine Est GFR ( Amer) Est GFR (Non-Af Amer) POC Glucose (mg/dL) 205 H Random Glucose Calcium Total Bilirubin AST ALT Alkaline Phosphatase Lactate Dehydrogenase NT-Pro-B Natriuret Pep Total Protein Albumin Globulin Albumin/Globulin Ratio Fluid Source Fluid Appearance Fluid WBC Fluid RBC Fluid Tot Cell Count Fluid Neutrophils Fluid Lymphocytes Fld Monocyte/Macrophag Fluid Glucose Fluid Total Protein Fluid LDH Fluid Triglycerides Fluid Comment 10/27/17 10/28/17 10/28/17 21:29 05:47 08:15 WBC 6.9 RBC 3.52 L Hgb 11.2 L Hct 32.9 L MCV 93.3 MCH 31.8 H MCHC 34.0 RDW 13.6 Plt Count 403 H Neutrophils % (Manual) Lymphocytes % (Manual) Reactive Lymphs % Monocytes % (Manual) Eosinophils % (Manual) Platelet Estimate Spherocytes PT INR APTT pCO2 pO2 HCO3 ABG pH ABG Total CO2 ABG O2 Saturation ABG O2 Content ABG Base Excess ABG Hemoglobin ABG Carboxyhemoglobin POC ABG HHb (Measured) ABG Methemoglobin ABG O2 Capacity Scout Test A-a O2 Difference Hgb O2 Saturation FiO2 Blood Gas Comments Crit Value Read Back Sodium Potassium Chloride Carbon Dioxide Anion Gap BUN Creatinine Est GFR ( Amer) Est GFR (Non-Af Amer) POC Glucose (mg/dL) 242 H 129 H Random Glucose Calcium Total Bilirubin AST ALT Alkaline Phosphatase Lactate Dehydrogenase NT-Pro-B Natriuret Pep Total Protein Albumin Globulin Albumin/Globulin Ratio Fluid Source Fluid Appearance Fluid WBC Fluid RBC Fluid Tot Cell Count Fluid Neutrophils Fluid Lymphocytes Fld Monocyte/Macrophag Fluid Glucose Fluid Total Protein Fluid LDH Fluid Triglycerides Fluid Comment 10/28/17 10/28/17 10/28/17 08:15 11:25 16:19 WBC RBC Hgb Hct MCV MCH MCHC RDW Plt Count Neutrophils % (Manual) Lymphocytes % (Manual) Reactive Lymphs % Monocytes % (Manual) Eosinophils % (Manual) Platelet Estimate Spherocytes PT INR APTT pCO2 pO2 HCO3 ABG pH ABG Total CO2 ABG O2 Saturation ABG O2 Content ABG Base Excess ABG Hemoglobin ABG Carboxyhemoglobin POC ABG HHb (Measured) ABG Methemoglobin ABG O2 Capacity Scout Test A-a O2 Difference Hgb O2 Saturation FiO2 Blood Gas Comments Crit Value Read Back Sodium 140 Potassium 4.3 Chloride 100 Carbon Dioxide 38 H Anion Gap 6 L BUN 20 Creatinine 0.8 Est GFR ( Amer) > 60 Est GFR (Non-Af Amer) > 60 POC Glucose (mg/dL) 300 H 90 Random Glucose 142 H Calcium 9.0 Total Bilirubin AST ALT Alkaline Phosphatase Lactate Dehydrogenase NT-Pro-B Natriuret Pep Total Protein Albumin Globulin Albumin/Globulin Ratio Fluid Source Fluid Appearance Fluid WBC Fluid RBC Fluid Tot Cell Count Fluid Neutrophils Fluid Lymphocytes Fld Monocyte/Macrophag Fluid Glucose Fluid Total Protein Fluid LDH Fluid Triglycerides Fluid Comment 10/28/17 10/29/17 10/29/17 21:29 05:55 10:56 WBC RBC Hgb Hct MCV MCH MCHC RDW Plt Count Neutrophils % (Manual) Lymphocytes % (Manual) Reactive Lymphs % Monocytes % (Manual) Eosinophils % (Manual) Platelet Estimate Spherocytes PT INR APTT pCO2 pO2 HCO3 ABG pH ABG Total CO2 ABG O2 Saturation ABG O2 Content ABG Base Excess ABG Hemoglobin ABG Carboxyhemoglobin POC ABG HHb (Measured) ABG Methemoglobin ABG O2 Capacity Scout Test A-a O2 Difference Hgb O2 Saturation FiO2 Blood Gas Comments Crit Value Read Back Sodium Potassium Chloride Carbon Dioxide Anion Gap BUN Creatinine Est GFR ( Amer) Est GFR (Non-Af Amer) POC Glucose (mg/dL) 96 86 188 H Random Glucose Calcium Total Bilirubin AST ALT Alkaline Phosphatase Lactate Dehydrogenase NT-Pro-B Natriuret Pep Total Protein Albumin Globulin Albumin/Globulin Ratio Fluid Source Fluid Appearance Fluid WBC Fluid RBC Fluid Tot Cell Count Fluid Neutrophils Fluid Lymphocytes Fld Monocyte/Macrophag Fluid Glucose Fluid Total Protein Fluid LDH Fluid Triglycerides Fluid Comment 10/29/17 10/29/17 10/30/17 15:48 20:58 05:37 WBC RBC Hgb Hct MCV MCH MCHC RDW Plt Count Neutrophils % (Manual) Lymphocytes % (Manual) Reactive Lymphs % Monocytes % (Manual) Eosinophils % (Manual) Platelet Estimate Spherocytes PT INR APTT pCO2 pO2 HCO3 ABG pH ABG Total CO2 ABG O2 Saturation ABG O2 Content ABG Base Excess ABG Hemoglobin ABG Carboxyhemoglobin POC ABG HHb (Measured) ABG Methemoglobin ABG O2 Capacity Scout Test A-a O2 Difference Hgb O2 Saturation FiO2 Blood Gas Comments Crit Value Read Back Sodium Potassium Chloride Carbon Dioxide Anion Gap BUN Creatinine Est GFR ( Amer) Est GFR (Non-Af Amer) POC Glucose (mg/dL) 226 H 173 H 72 Random Glucose Calcium Total Bilirubin AST ALT Alkaline Phosphatase Lactate Dehydrogenase NT-Pro-B Natriuret Pep Total Protein Albumin Globulin Albumin/Globulin Ratio Fluid Source Fluid Appearance Fluid WBC Fluid RBC Fluid Tot Cell Count Fluid Neutrophils Fluid Lymphocytes Fld Monocyte/Macrophag Fluid Glucose Fluid Total Protein Fluid LDH Fluid Triglycerides Fluid Comment 10/30/17 10/30/17 10/30/17 06:50 10:33 10:33 WBC RBC Hgb Hct MCV MCH MCHC RDW Plt Count Neutrophils % (Manual) Lymphocytes % (Manual) Reactive Lymphs % Monocytes % (Manual) Eosinophils % (Manual) Platelet Estimate Spherocytes PT INR APTT pCO2 pO2 HCO3 ABG pH ABG Total CO2 ABG O2 Saturation ABG O2 Content ABG Base Excess ABG Hemoglobin ABG Carboxyhemoglobin POC ABG HHb (Measured) ABG Methemoglobin ABG O2 Capacity Scout Test A-a O2 Difference Hgb O2 Saturation FiO2 Blood Gas Comments Crit Value Read Back Sodium Potassium Chloride Carbon Dioxide Anion Gap BUN Creatinine Est GFR ( Amer) Est GFR (Non-Af Amer) POC Glucose (mg/dL) 74 Random Glucose Calcium Total Bilirubin AST ALT Alkaline Phosphatase Lactate Dehydrogenase NT-Pro-B Natriuret Pep Total Protein Albumin Globulin Albumin/Globulin Ratio Fluid Source Fluid Appearance Fluid WBC Fluid RBC Fluid Tot Cell Count Fluid Neutrophils Fluid Lymphocytes Fld Monocyte/Macrophag Fluid Glucose 126 Fluid Total Protein < 2.0 Fluid LDH 221 Fluid Triglycerides < 10 Fluid Comment 10/30/17 10/30/17 10/30/17 10:33 11:46 12:06 WBC RBC Hgb Hct MCV MCH MCHC RDW Plt Count Neutrophils % (Manual) Lymphocytes % (Manual) Reactive Lymphs % Monocytes % (Manual) Eosinophils % (Manual) Platelet Estimate Spherocytes PT INR APTT pCO2 pO2 HCO3 ABG pH ABG Total CO2 ABG O2 Saturation ABG O2 Content ABG Base Excess ABG Hemoglobin ABG Carboxyhemoglobin POC ABG HHb (Measured) ABG Methemoglobin ABG O2 Capacity Scout Test A-a O2 Difference Hgb O2 Saturation FiO2 Blood Gas Comments Crit Value Read Back Sodium 137 Potassium 4.0 Chloride 96 L Carbon Dioxide 33 H Anion Gap 12 BUN 22 H Creatinine 0.7 L Est GFR ( Amer) > 60 Est GFR (Non-Af Amer) > 60 POC Glucose (mg/dL) 157 H Random Glucose 150 H Calcium 9.0 Total Bilirubin 0.5 AST 36 ALT 52 Alkaline Phosphatase 61 Lactate Dehydrogenase 499 NT-Pro-B Natriuret Pep Total Protein 6.3 Albumin 3.5 Globulin 2.8 Albumin/Globulin Ratio 1.3 Fluid Source Pleural/thoracentesi Fluid Appearance Sl cloudy Fluid WBC 376.0 H Fluid RBC 851.0 H Fluid Tot Cell Count 100 H Fluid Neutrophils 6.0 H Fluid Lymphocytes 84.0 H Fld Monocyte/Macrophag 10 H Fluid Glucose Fluid Total Protein Fluid LDH Fluid Triglycerides Fluid Comment Yellow Microbiology 10/26/17 09:57 Bronchial Washings Bronchial Culture - Final Enterobacter Cloacae Ssp Cloac Klebsiella Pneumoniae Ssp Pneu 10/25/17 14:15 Pleural Fluid Gram Stain - Final 10/25/17 14:15 Pleural Fluid Body Fluid Culture - Final NO GROWTH AFTER 4 DAYS 10/24/17 12:44 Sputum Gram Stain - Final 10/24/17 12:44 Sputum Sputum Culture - Final Enterobacter Cloacae Ssp Cloac 10/16/17 12:23 Blood-Venous Blood Culture - Final 10/16/17 12:23 Blood-Venous Gram Stain - Final NO GROWTH AFTER 5 DAYS TEST NOT PERFORMED 10/16/17 12:23 Blood-Venous Blood Culture - Final 10/16/17 12:23 Blood-Venous Gram Stain - Final NO GROWTH AFTER 5 DAYS TEST NOT PERFORMED 10/13/17 19:56 Blood-Venous Blood Culture - Final 10/13/17 19:56 Blood-Venous Gram Stain - Final NO GROWTH AFTER 5 DAYS TEST NOT PERFORMED 10/13/17 19:46 Blood-Venous Blood Culture - Final 10/13/17 19:46 Blood-Venous Gram Stain - Final NO GROWTH AFTER 5 DAYS TEST NOT PERFORMED 10/26/17 09:57 Other: Please Indicate Mycobacterial Culture - Preliminary 10/26/17 09:57 Body Fluid - Bronchial Washing Fungal Culture - Preliminary Assessment and Plan (1) Pleural effusion Status: Acute (2) Hemoptysis Status: Acute (3) 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 pleural fluid cx- Enterobacter cloacae and K.Pneumonia sputum cx from 10/24/2017- enterobacter cloacae leukocytosis resolved. sputum cytology path report- negative for malignant cells as per report pleural fluid AFB smear- negative blood cx from 10/07 - one out of 2 bottles reported coag neg staph ( most likely contaminant) repeat blood cx- neg x 1( 10/10/2017) blood cx from 10/09/2017- Bifidobacterium species ( anerobic bottle only)!!! repeat blood cx 10/13/2017 and 10/16/2017- neg x 4 OR cx- no growth pleural fluid cx- coag neg staph mycoplasma IGm- neg Urine legionellla Ag- Neg previous pleural fluid cx- neg previous sputum cx- yeast TTE report- no mention of vegetations as per report. Most recent CXR reported as no acute infiltrate, no PTX, small b/l pleural effusions. Plan- has completed 14 days of IV vancomycin for the blood cx from 10/09/2017 Identified as Bifidobacterium. repeat blood cx - neg x 4 had completed 10 days of IV meropnem. hemoptysis evaluation as per wood fuel pelletizer. started on Iv ertapenem for Enterobacter and K.Pneumonia in pleural fluid cx day #5 advise total of 8 days of Iv abx and can be switched to oral bactrim Ds daily once pt. is cleared by wood fuel pelletizer for d/c home. bronchial washing cx adn cytology pending. all above d/w patient and his and they verbalize full understanding of all above. Plan d/w family practice team at length.
--- NOTE | 2017-10-30 11:29 | US ---
PROCEDURE: Date of procedure: 10/30/2017 Procedure: 1. Ultrasound-guided left thoracentesis, CPT 70778 Medications: 5cc 1% Lidocaine HISTORY: Left pleural effusion TECHNIQUE: Following informed consent ,the Patients' left chest was marked. Procedure time-out was called, and the patient was placed in the sitting position and limited ultrasound showed a large left effusion. The patient's left back was prepped and draped in the usual sterile fashion. After the skin was anesthetized with lidocaine, a drainage catheter was advanced under ultrasound guidance into the pleural space. Ultrasound-guided thoracentesis was performed. A total of 1000 cubic centimeters of straw-colored fluid removed without complication. A Xeroform dressing was applied. IMPRESSION: Ultrasound guided left thoracentesis. There were no immediate complications.
[2017-10-30 12:29] LABS: ALB/GLOB RATIO 1.3 (1.0-2.1); ALBUMIN 3.5 g/dL (3.5-5.0); ALT/SGPT 52 U/L (21-72); AST/SGOT 36 U/L (17-59); BLOOD UREA NITROGEN 22 mg/dl (9-20); GFR NON-AFRICAN AMERICAN > 60
[2017-10-30 12:36] LABS: BODY FLUID TYPE PLEURAL/THORACENTESI
[2017-10-30 13:13] LABS: BF GROSS APPEARANCE SL CLOUDY (CLEAR); BODY FLUID MONO/MACROPHAGE 10 % (0-0); BODY FLUID TOTAL COUNT 100 (0-0)
[2017-10-30 13:31] LABS: TOTAL PROTEIN,BODY FLUID < 2.0 g/dL (NONE ESTABLISHED)
[2017-10-30 17:10] LABS: INR 1.2; PROTHROMBIN TIME 13.5 Seconds (9.8-13.1)
--- NOTE | 2017-10-30 17:14 | RAD ---
Date of service: 10/30/2017 PROCEDURE: CHEST RADIOGRAPH, 1 VIEW HISTORY: Status post left thoracentesis COMPARISON: Chest radiograph 10/27/2017. FINDINGS: LUNGS: No definite alveolitis appreciated bilaterally. PLEURA: No left pleural effusion. Smaller pleural effusions suggested. Fibrotic changes remain at the left base and right apex with improved aeration in both bases appreciated at this time. CARDIOVASCULAR: Normal. OSSEOUS STRUCTURES: No significant abnormalities. VISUALIZED UPPER ABDOMEN: Normal. OTHER FINDINGS: Surgical clip again noted left chest. IMPRESSION: Improved aeration throughout the chest with exception of a small right pleural effusion extending above the level the costophrenic sulcus. Limited fibrosis remains right apex and left base. Surgical clip again seen left chest.
[2017-10-30] MEDS: Insulin Detemir 100 Units/ml Inj SC SCH (21:37)
[2017-10-30] MEDS: Docusate-Senna 50 mg-8.6 mg Tab PO SCH (21:39)
[2017-10-31 05:51] LABS: INR 1.2
[2017-10-31 06:22] LABS: HEMOGLOBIN 11.7 g/dL (12.0-18.0); MEAN CELL VOLUME 91.8 fl (80.0-94.0); MEAN CORPUSCULAR HEMOGLOBIN 31.5 pg (27.0-31.0); MEAN CORPUSCULAR HGB CONC 34.4 g/dL (33.0-37.0); RBC 3.7 Mil/uL (4.40-5.90); RED CELL DISTRIBUTION WIDTH 13.1 % (11.5-14.5); WHITE BLOOD COUNT 8.3 K/uL (4.8-10.8)
[2017-10-31] MEDS: Insulin Regular 100 units/ml SC SCH ×4 (07:00→21:52)
[2017-10-31] MEDS: Levalbuterol 0.63 MG/3 ML Inhal Soln UD IH PRN ×3 (07:21→19:25)
--- NOTE | 2017-10-31 08:39 | CP.PCM.PN ---
Subjective - Date & Time of Evaluation Date of Evaluation: 10/31/17 Time of Evaluation: 07:20 - Subjective Subjective: Patient seen and examined at bedside in AM. Pt was on NC 4L overnight without getting SOB. NAD. Patient still feels congested. Reports sore throat and pain with swallowing since this morning. Denies any fever, chills, CP, abdominal pain , headache, sinus pressure, rhinorrhea, N/V/D. Tolerating diet well. Objective - Vital Signs/Intake and Output Vital Signs (last 24 hours): Temp Pulse Resp BP Pulse Ox 97.4 F L 86 22 164/69 H 99 10/31/17 05:04 10/31/17 05:04 10/31/17 05:12 10/31/17 05:04 10/31/17 05:04 - Medications Medications: Current Medications Acetaminophen (Tylenol 325mg Tab) 650 mg PO Q4 PRN PRN Reason: Pain, Mild (1-3) Atorvastatin Calcium (Lipitor) 40 mg PO HS [facility] Last Admin: 10/30/17 21:38 Dose: 40 mg Dextrose (Dextrose 50% Inj) 0 ml IVP STAT PRN; Protocol PRN Reason: Hypoglycemia Protocol Famotidine (Pepcid) 20 mg PO DAILY [facility] Last Admin: 10/30/17 08:42 Dose: 20 mg Finasteride (Proscar) 5 mg PO DAILY [facility] Last Admin: 10/30/17 08:43 Dose: 5 mg Fluticasone Propionate (Flonase) 2 spr EDMUNDO DAILY [facility] Last Admin: 10/30/17 08:42 Dose: 2 spr Gabapentin (Neurontin) 300 mg PO [facility] Last Admin: 10/30/17 21:38 Dose: 300 mg Glucagon (Glucagen Diagnostic Kit) 0 mg IM STAT PRN; Protocol PRN Reason: Hypoglycemia Protocol Hydrochlorothiazide (Microzide) 12.5 mg PO DAILY [facility] Last Admin: 10/30/17 08:42 Dose: 12.5 mg Ertapenem 1 gm/ Sodium (Chloride) 100 mls @ 100 mls/hr IVPB DAILY [facility] Last Admin: 10/30/17 08:44 Dose: 100 mls/hr Insulin Detemir (Levemir) 8 units SC [facility] Last Admin: 10/30/17 21:37 Dose: 8 units Insulin Human Regular (Humulin R) 0 units SC [facility] PRN Reason: Protocol Last Admin: 10/30/17 21:35 Dose: Not Given Levalbuterol HCl (Xopenex) 0.63 mg IH RQ4 PRN PRN Reason: Shortness of Breath Last Admin: 10/31/17 07:21 Dose: 0.63 mg Losartan Potassium (Cozaar) 50 mg PO DAILY [facility] Last Admin: 10/30/17 08:42 Dose: 50 mg Methylprednisolone (Solu-Medrol) 30 mg IVP DAILY [facility] Last Admin: 10/30/17 08:41 Dose: 30 mg Nystatin (Nystatin Oral Susp) 5 ml PO QID [facility] Ondansetron HCl (Zofran Inj) 4 mg IVP Q6 PRN PRN Reason: Nausea/Vomiting Repaglinide (Prandin) 1 mg PO ACBD [facility] Last Admin: 10/30/17 16:26 Dose: 1 mg Fluticasone/Salmeterol (Advair Diskus 100/50) 1 puff IH BID [facility] Last Admin: 10/30/17 16:25 Dose: 1 puff Senna/Docusate Sodium (Senokot S 50 Mg-8.6 Mg) 2 tab PO HS [facility] Last Admin: 10/30/17 21:39 Dose: Not Given Tiotropium [place] (Spiriva) 18 mcg IH DAILY [facility] Last Admin: 10/30/17 08:41 Dose: 18 mcg - Labs Labs: 10/31/17 04:20 10/30/17 12:06 PT 13.0 Seconds (9.8-13.1) 10/31/17 04:20 INR 1.2 10/31/17 04:20 APTT 32.7 Seconds (25.6-37.1) 10/27/17 15:08 - Constitutional Appears: Well, Non-toxic, No Acute Distress - Head Exam Head Exam: ATRAUMATIC, NORMAL INSPECTION, NORMOCEPHALIC - Eye Exam Eye Exam: Normal appearance, PERRL - ENT Exam ENT Exam: Mucous Membranes Moist Additional comments: Multiple white lesion on oropharynx - Respiratory Exam Respiratory Exam: Decreased Breath Sounds, NORMAL BREATHING PATTERN. absent: Rales, Rhonchi, Wheezes - Cardiovascular Exam Cardiovascular Exam: Irregular Rhythm, +S1, +S2. absent: Murmur - GI/Abdominal Exam GI & Abdominal Exam: Soft, Normal Bowel Sounds. absent: Guarding, Rigid, Tenderness - Extremities Exam Extremities Exam: absent: Calf Tenderness, Pedal Edema, Tenderness - Back Exam Back Exam: absent: CVA tenderness (L), CVA tenderness (R) - Neurological Exam Neurological Exam: Alert, Awake, Oriented x3 - Psychiatric Exam Psychiatric exam: Normal Affect, Normal Mood - Skin Skin Exam: Dry, Intact, Normal Color Assessment and Plan - Assessment and Plan (Free Text) Assessment: 76 y/o M with PMH of DM2, HTN, COPD, atrial fibrillation and hx of lung nodule ( Dx with organizing pneumonia) admitted to worsening shortness of breath, hypoxemia, and dark brown/maroon sputum. S/P thoracentesis yesterday. Plan: Worsening dyspnea in patient with COPD/BOOP -Pt no longer using high flow NC. Currently on 3L of NC, which was decreased to 2.5L with O2sat of 95%. -CTA Chest: 1. No CT evidence of acute pulmonary embolus. 2. Extensive COPD again appreciated with variable fibrosis and apical nodularity as discussed above. Stable large pneumatocele or bulla at the right middle lobe inferiorly, containing diminishing fluid volume potentially reflecting late subacute or chronic hematocele. Pyocele or abscess is not favored given lack of contrast enhancement. 3. Stable [id number] bilateral pleural effusions reiterated, likely loculated at the left. 4. Stable small left adrenal nodule. - S/P thoracentesis and bronchoscopy: cultures and cytology done - Dr Hameed, Pulmonary consult on board: Will follow recommendations. - continue with spiriva. - Xopenex q6 scheduled, as well as PRN - Solu-medrol 30mg IVP tonight, and will order Medrol 8 mg PO BID tomorrow - S/P thoracentesis today. Drained about 1 L strew colored fluid. Sent for cytology, fluid analysis. - PT ordered as per Pulm - Possible discharge tomorrow as per Pulm Hemoptysis - Persists - S/P Bronchoscopy 10/26/17 and 2 x thoracentesis and Lung biopsy(10/04/17) - Dark brownish sputum, + Enterobacter Cloacea ssp - Ertepenum Day 6,(Total 8 days), upon discharge switch to Bactrim PO - ID on board: Will follow recommendations - Pulmonary consult on board: Recommendations appreciated. - Hold Lovenox, Resume Warfarin - Will monitor status Atrial Fibrillation -Chronic, asymptomatic -INR 1.2 -no beta blockers as patient has limited respiratory reserve -Nut [place] Dr. Last on board: Will follow recommendations. -Resume Warfarin 5 mg PO QD, F/U PT, INR -CBC, PT tomorrow AM. Left Lung Nodule, [place] [facility] [place] [facility] [place] Diabetes Mellitus type 2 -Chronic, controlled -Last HBA1C: 7.7 on 05/2017 -reduce Repaglinide from 1mg to 0.5 mg PO BID -C/W Levemir 8 units SC QHS. Insulin regular coverage scale added -Hypoglycemic treatment protocol in place -AccuChecks ACHS Hypertension -Chronic, controlled -C/w Losartan 50 mg PO QD -HCTZ held as BP was running low -monitor BP HLD -chronic, controlled -continue home medication: atorvastatin 40mg DVT Prophylaxis -SCDs -Resume Warfarin 5 mg PO QD as per Cardio. 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
--- NOTE | 2017-10-31 08:48 | CP.PCM.PN ---
Subjective - Date & Time of Evaluation Date of Evaluation: 10/31/17 Time of Evaluation: 08:15 - Subjective Subjective: Had 1 litre of pleural fluid removed from Lt side without incident Has remained stable overnight Telemetry shows a fib at moderate HR BP 128/ 70 mm Hg JVP flat , no oedema over feet Warfarin was reintroduced Pt may be sent home when deemed stable from pulm point of view INR will be monitored as out pt to arrive at an appropriate dose and therapeutic INR Objective - Vital Signs/Intake and Output Vital Signs (last 24 hours): Temp Pulse Resp BP Pulse Ox 97.4 F L 86 22 164/69 H 99 10/31/17 05:04 10/31/17 05:04 10/31/17 05:12 10/31/17 05:04 10/31/17 05:04 - Medications Medications: Current Medications Acetaminophen (Tylenol 325mg Tab) 650 mg PO Q4 PRN PRN Reason: Pain, Mild (1-3) Atorvastatin Calcium (Lipitor) 40 mg PO HS [facility] Last Admin: 10/30/17 21:38 Dose: 40 mg Dextrose (Dextrose 50% Inj) 0 ml IVP STAT PRN; Protocol PRN Reason: Hypoglycemia Protocol Famotidine (Pepcid) 20 mg PO DAILY [facility] Last Admin: 10/30/17 08:42 Dose: 20 mg Finasteride (Proscar) 5 mg PO DAILY [facility] Last Admin: 10/30/17 08:43 Dose: 5 mg Fluticasone Propionate (Flonase) 2 spr EDMUNDO DAILY [facility] Last Admin: 10/30/17 08:42 Dose: 2 spr Gabapentin (Neurontin) 300 mg PO [facility] Last Admin: 10/30/17 21:38 Dose: 300 mg Glucagon (Glucagen Diagnostic Kit) 0 mg IM STAT PRN; Protocol PRN Reason: Hypoglycemia Protocol Hydrochlorothiazide (Microzide) 12.5 mg PO DAILY [facility] Last Admin: 10/30/17 08:42 Dose: 12.5 mg Ertapenem 1 gm/ Sodium (Chloride) 100 mls @ 100 mls/hr IVPB DAILY [facility] Last Admin: 10/30/17 08:44 Dose: 100 mls/hr Insulin Detemir (Levemir) 8 units SC [facility] Last Admin: 10/30/17 21:37 Dose: 8 units Insulin Human Regular (Humulin R) 0 units SC [facility] PRN Reason: Protocol Last Admin: 10/30/17 21:35 Dose: Not Given Levalbuterol HCl (Xopenex) 0.63 mg IH RQ4 PRN PRN Reason: Shortness of Breath Last Admin: 10/31/17 07:21 Dose: 0.63 mg Losartan Potassium (Cozaar) 50 mg PO DAILY [facility] Last Admin: 10/30/17 08:42 Dose: 50 mg Methylprednisolone (Solu-Medrol) 30 mg IVP DAILY [facility] Last Admin: 10/30/17 08:41 Dose: 30 mg Nystatin (Nystatin Oral Susp) 5 ml PO QID [facility] Ondansetron HCl (Zofran Inj) 4 mg IVP Q6 PRN PRN Reason: Nausea/Vomiting Repaglinide (Prandin) 1 mg PO ACBD [facility] Last Admin: 10/30/17 16:26 Dose: 1 mg Fluticasone/Salmeterol (Advair Diskus 100/50) 1 puff IH BID [facility] Last Admin: 10/30/17 16:25 Dose: 1 puff Senna/Docusate Sodium (Senokot S 50 Mg-8.6 Mg) 2 tab PO HS [facility] Last Admin: 10/30/17 21:39 Dose: Not Given Tiotropium [place] (Spiriva) 18 mcg IH DAILY [facility] Last Admin: 10/30/17 08:41 Dose: 18 mcg - Labs Labs: 10/31/17 04:20 10/30/17 12:06 PT 13.0 Seconds (9.8-13.1) 10/31/17 04:20 INR 1.2 10/31/17 04:20 APTT 32.7 Seconds (25.6-37.1) 10/27/17 15:08
[2017-10-31] MEDS: Fluticasone-Salmeterol 100-50mcg Diskus IH SCH ×2 (10:51→18:48)
[2017-10-31] MEDS: Nystatin 100,000 Units/ml Oral Susp 5 ml UD PO SCH ×4 (10:55→21:51)
[2017-10-31] MEDS: Tiotropium 18 mcg Cap For Inhalation IH SCH (10:57)
[2017-10-31] MEDS: MethylPREDNISolone 40 mg Vial IVP SCH (10:58)
--- NOTE | 2017-10-31 11:59 | CP.PCM.PN ---
Subjective - Date & Time of Evaluation Date of Evaluation: 10/31/17 Time of Evaluation: 08:47 - Subjective Subjective: Patient was seen and examined this AM during morning rounds. -He reports another episode of hemoptysis containing dark-red blood with mucus this morning. He reports being able to walk to the restroom with decreased dyspnea than previously noted. Left-sided thoracocentesis was performed yesterday. 1 L of straw colored fluid was extracted, which indicated transudative effusion. -He is no longer using high flow NC. Currently on 3L of NC, which was decreased to 2.5L with O2sat of 95%. -He will receive last dose of Solu-medrol 30mg IVP tonight, and will order Medrol 8 mg PO BID tomorrow. -Will continue Ertapenem today, another dose tomorrow, and then give script for Vantin. -Order placed for physical therapy. -Possible discharge tomorrow. Objective - Vital Signs/Intake and Output Vital Signs (last 24 hours): Temp Pulse Resp BP Pulse Ox 97.5 F L 85 20 142/61 98 10/31/17 08:57 10/31/17 10:52 10/31/17 08:57 10/31/17 10:52 10/31/17 08:57 - Medications Medications: Current Medications Acetaminophen (Tylenol 325mg Tab) 650 mg PO Q4 PRN PRN Reason: Pain, Mild (1-3) Atorvastatin Calcium (Lipitor) 40 mg PO HS [facility] Last Admin: 10/30/17 21:38 Dose: 40 mg Dextrose (Dextrose 50% Inj) 0 ml IVP STAT PRN; Protocol PRN Reason: Hypoglycemia Protocol Famotidine (Pepcid) 20 mg PO DAILY [facility] Last Admin: 10/31/17 10:56 Dose: 20 mg Finasteride (Proscar) 5 mg PO DAILY [facility] Last Admin: 10/31/17 10:56 Dose: 5 mg Fluticasone Propionate (Flonase) 2 spr EDMUNDO DAILY [facility] Last Admin: 10/31/17 10:53 Dose: 2 spr Gabapentin (Neurontin) 300 mg PO HS [facility] Last Admin: 10/30/17 21:38 Dose: 300 mg Glucagon (Glucagen Diagnostic Kit) 0 mg IM STAT PRN; Protocol PRN Reason: Hypoglycemia Protocol Hydrochlorothiazide (Microzide) 12.5 mg PO DAILY [facility] Last Admin: 10/31/17 10:54 Dose: 12.5 mg Ertapenem 1 gm/ Sodium (Chloride) 100 mls @ 100 mls/hr IVPB DAILY [facility] Last Admin: 10/31/17 11:02 Dose: 100 mls/hr Insulin Detemir (Levemir) 8 units SC HS [facility] Last Admin: 10/30/17 21:37 Dose: 8 units Insulin Human Regular (Humulin R) 0 units SC ACHS [facility] PRN Reason: Protocol Last Admin: 10/31/17 07:00 Dose: Not Given Levalbuterol HCl (Xopenex) 0.63 mg IH RQ4 PRN PRN Reason: Shortness of Breath Last Admin: 10/31/17 07:21 Dose: 0.63 mg Losartan Potassium (Cozaar) 50 mg PO DAILY [facility] Last Admin: 10/31/17 10:52 Dose: 50 mg Methylprednisolone (Solu-Medrol) 30 mg IVP DAILY [facility] Stop: 10/31/17 23:59 Last Admin: 10/31/17 10:58 Dose: 30 mg Methylprednisolone (Medrol) 8 mg PO BID [facility] Nystatin (Nystatin Oral Susp) 5 ml PO QID [facility] Last Admin: 10/31/17 10:55 Dose: 5 ml Ondansetron HCl (Zofran Inj) 4 mg IVP Q6 PRN PRN Reason: Nausea/Vomiting Repaglinide (Prandin) 0.5 mg PO ACBD [facility] Last Admin: 10/31/17 11:00 Dose: 0.5 mg Fluticasone/Salmeterol (Advair Diskus 100/50) 1 puff IH BID [facility] Last Admin: 10/31/17 10:51 Dose: 1 puff Senna/Docusate Sodium (Senokot S 50 Mg-8.6 Mg) 2 tab PO [facility] Last Admin: 10/30/17 21:39 Dose: Not Given Tiotropium [place] (Spiriva) 18 mcg IH DAILY [facility] Last Admin: 10/31/17 10:57 Dose: 18 mcg Warfarin Sodium (Coumadin) 5 mg PO QD5 [facility] PRN Reason: Protocol Stop: 10/31/17 17:01 - Labs Labs: 10/31/17 04:20 10/30/17 12:06 PT 13.0 Seconds (9.8-13.1) 10/31/17 04:20 INR 1.2 10/31/17 04:20 APTT 32.7 Seconds (25.6-37.1) 10/27/17 15:08
[2017-10-31] MEDS: Insulin Detemir 100 Units/ml Inj SC SCH (21:52)
[2017-10-31] MEDS: Docusate-Senna 50 mg-8.6 mg Tab PO SCH (21:53)
[2017-11-01] MEDS: Levalbuterol 0.63 MG/3 ML Inhal Soln UD IH PRN ×2 (05:01→07:35)
[2017-11-01 05:42] LABS: INR 1.2; PROTHROMBIN TIME 13.6 Seconds (9.8-13.1)
[2017-11-01 08:23] VITALS: RESP 20
[2017-11-01] MEDS: Fluticasone-Salmeterol 100-50mcg Diskus IH SCH (08:38)
[2017-11-01] MEDS: Insulin Regular 100 units/ml SC SCH ×2 (08:41→12:58)
[2017-11-01] MEDS: Nystatin 100,000 Units/ml Oral Susp 5 ml UD PO SCH ×2 (08:43→12:59)
[2017-11-01] MEDS: Tiotropium 18 mcg Cap For Inhalation IH SCH (08:44)
--- NOTE | 2017-11-01 10:35 | CP.PCM.PN ---
Subjective - Date & Time of Evaluation Date of Evaluation: 11/01/17 Time of Evaluation: 09:30 - Subjective Subjective: Has been OOB for extended period of time yesterday Has used the BR without any assistance, has hemoptysis (Old dark blood) A Fib at 80-90 BPM BP 134/70 mm HG JVP flat INR 1.2 (Warfarin ordered for today) Have instructed pt on Warfarin dose at home Have given scripts for INR to be drawn as out pt Will monitor INR and adjust warfarin dose as out pt. Objective - Vital Signs/Intake and Output Vital Signs (last 24 hours): Temp Pulse Resp BP Pulse Ox 97.3 F L 83 20 130/69 99 11/01/17 08:00 11/01/17 08:39 11/01/17 08:00 11/01/17 08:39 11/01/17 08:00 - Medications Medications: Current Medications Acetaminophen (Tylenol 325mg Tab) 650 mg PO Q4 PRN PRN Reason: Pain, Mild (1-3) Atorvastatin Calcium (Lipitor) [address] [facility] Last Admin: 10/31/17 21:51 Dose: 40 mg Dextrose (Dextrose 50% Inj) 0 ml IVP STAT PRN; Protocol PRN Reason: Hypoglycemia Protocol Famotidine (Pepcid) 20 mg PO DAILY [facility] Last Admin: 11/01/17 08:45 Dose: 20 mg Finasteride (Proscar) 5 mg PO DAILY [facility] Last Admin: 11/01/17 08:47 Dose: 5 mg Fluticasone Propionate (Flonase) 2 spr EDMUNDO DAILY [facility] Last Admin: 11/01/17 08:40 Dose: 2 spr Gabapentin (Neurontin) [address] [facility] Last Admin: 10/31/17 21:51 Dose: 300 mg Glucagon (Glucagen Diagnostic Kit) 0 mg IM STAT PRN; Protocol PRN Reason: Hypoglycemia Protocol Hydrochlorothiazide (Microzide) 12.5 mg PO DAILY [facility] Last Admin: 11/01/17 08:43 Dose: 12.5 mg Ertapenem 1 gm/ Sodium (Chloride) 100 mls @ 100 mls/hr IVPB DAILY [facility] Last Admin: 11/01/17 08:42 Dose: 100 mls/hr Insulin Detemir (Levemir) [address] [facility] Last Admin: 10/31/17 21:52 Dose: 8 units Insulin Human Regular (Humulin R) 0 units SC A[facility] PRN Reason: Protocol Last Admin: 11/01/17 08:41 Dose: Not Given Levalbuterol HCl (Xopenex) 0.63 mg IH RQ4 PRN PRN Reason: Shortness of Breath Last Admin: 11/01/17 07:35 Dose: 0.63 mg Losartan Potassium (Cozaar) 50 mg PO DAILY [facility] Last Admin: 11/01/17 08:39 Dose: 50 mg Methylprednisolone (Medrol) 8 mg PO BID [facility] Last Admin: 11/01/17 08:43 Dose: 8 mg Nystatin (Nystatin Oral Susp) 5 ml PO QID [facility] Last Admin: 11/01/17 08:43 Dose: 5 ml Ondansetron HCl (Zofran Inj) 4 mg IVP Q6 PRN PRN Reason: Nausea/Vomiting Repaglinide (Prandin) 0.5 mg PO ACBD [facility] Last Admin: 11/01/17 08:46 Dose: 0.5 mg Fluticasone/Salmeterol (Advair Diskus 100/50) 1 puff IH BID [facility] Last Admin: 11/01/17 08:38 Dose: 1 puff Senna/Docusate Sodium (Senokot S 50 Mg-8.6 Mg) 2 tab PO HS [facility] Last Admin: 10/31/17 21:53 Dose: Not Given Tiotropium [place] (Spiriva) 18 mcg IH DAILY [facility] Last Admin: 11/01/17 08:44 Dose: 18 mcg Warfarin Sodium (Coumadin) 5 mg PO QD5 [facility] PRN Reason: Protocol Stop: 11/01/17 17:01 - Labs Labs: 10/31/17 04:20 10/30/17 12:06 PT 13.6 Seconds (9.8-13.1) H 11/01/17 04:20 INR 1.2 11/01/17 04:20 APTT 32.7 Seconds (25.6-37.1) 10/27/17 15:08
--- NOTE | 2017-11-01 11:21 | CP.PCM.PN ---
Subjective - Date & Time of Evaluation Date of Evaluation: 11/01/17 Time of Evaluation: 08:30 - Subjective Subjective: Patient seen and examined at bedside. Sitting up and breathing comfortably on 2 L O2 NC. Endorses ambulating w/o difficulty/SOB. Reports decreasing sputum production that is dark brown in color. Denies chest pain, SOB, cough. Okay to discharge from pulm perspective. Advised to cont. abx and steroid taper outpatient. Case discussed w/ primary medical team. Objective - Vital Signs/Intake and Output Vital Signs (last 24 hours): Temp Pulse Resp BP Pulse Ox 97.3 F L 83 20 130/69 99 11/01/17 08:00 11/01/17 08:39 11/01/17 08:00 11/01/17 08:39 11/01/17 08:00 - Medications Medications: Current Medications Acetaminophen (Tylenol 325mg Tab) 650 mg PO Q4 PRN PRN Reason: Pain, Mild (1-3) Atorvastatin Calcium (Lipitor) 40 mg PO [facility] Last Admin: 10/31/17 21:51 Dose: 40 mg Dextrose (Dextrose 50% Inj) 0 ml IVP STAT PRN; Protocol PRN Reason: Hypoglycemia Protocol Famotidine (Pepcid) 20 mg PO DAILY [facility] Last Admin: 11/01/17 08:45 Dose: 20 mg Finasteride (Proscar) 5 mg PO DAILY [facility] Last Admin: 11/01/17 08:47 Dose: 5 mg Fluticasone Propionate (Flonase) 2 spr EDMUNDO DAILY [facility] Last Admin: 11/01/17 08:40 Dose: 2 spr Gabapentin (Neurontin) 300 mg PO [facility] Last Admin: 10/31/17 21:51 Dose: 300 mg Glucagon (Glucagen Diagnostic Kit) 0 mg IM STAT PRN; Protocol PRN Reason: Hypoglycemia Protocol Hydrochlorothiazide (Microzide) 12.5 mg PO DAILY [facility] Last Admin: 11/01/17 08:43 Dose: 12.5 mg Ertapenem 1 gm/ Sodium (Chloride) 100 mls @ 100 mls/hr IVPB DAILY [facility] Last Admin: 11/01/17 08:42 Dose: 100 mls/hr Insulin Detemir (Levemir) 8 units SC [facility] Last Admin: 10/31/17 21:52 Dose: 8 units Insulin Human Regular (Humulin R) 0 units SC [facility] PRN Reason: Protocol Last Admin: 11/01/17 08:41 Dose: Not Given Levalbuterol HCl (Xopenex) 0.63 mg IH RQ4 PRN PRN Reason: Shortness of Breath Last Admin: 11/01/17 07:35 Dose: 0.63 mg Losartan Potassium (Cozaar) 50 mg PO DAILY [facility] Last Admin: 11/01/17 08:39 Dose: 50 mg Methylprednisolone (Medrol) 8 mg PO BID [facility] Last Admin: 11/01/17 08:43 Dose: 8 mg Nystatin (Nystatin Oral Susp) 5 ml PO QID [facility] Last Admin: 11/01/17 08:43 Dose: 5 ml Ondansetron HCl (Zofran Inj) 4 mg IVP Q6 PRN PRN Reason: Nausea/Vomiting Repaglinide (Prandin) 0.5 mg PO ACBD [facility] Last Admin: 11/01/17 08:46 Dose: 0.5 mg Fluticasone/Salmeterol (Advair Diskus 100/50) 1 puff IH BID [facility] Last Admin: 11/01/17 08:38 Dose: 1 puff Senna/Docusate Sodium (Senokot S 50 Mg-8.6 Mg) 2 tab PO HS [facility] Last Admin: 10/31/17 21:53 Dose: Not Given Tiotropium [place] (Spiriva) 18 mcg IH DAILY [facility] Last Admin: 11/01/17 08:44 Dose: 18 mcg Warfarin Sodium (Coumadin) 5 mg PO QD5 [facility] PRN Reason: Protocol Stop: 11/01/17 17:01 - Labs Labs: 10/31/17 04:20 10/30/17 12:06 PT 13.6 Seconds (9.8-13.1) H 11/01/17 04:20 INR 1.2 11/01/17 04:20 APTT 32.7 Seconds (25.6-37.1) 10/27/17 15:08 - Constitutional Appears: No Acute Distress - ENT Exam ENT Exam: Mucous Membranes Moist - Cardiovascular Exam Cardiovascular Exam: Bradycardia, RRR, +S1, +S2. absent: Tachycardia - GI/Abdominal Exam GI & Abdominal Exam: Soft, Normal Bowel Sounds. absent: Tenderness - Extremities Exam Extremities Exam: Normal Inspection. absent: Calf Tenderness, Tenderness - Psychiatric Exam Psychiatric exam: Normal Affect - Skin Skin Exam: Dry, Normal Color, Warm
--- NOTE | 2017-11-01 11:28 | CP.PCM.DIS ---
Provider - Provider Date of Admission: 10/27/17 13:09 Attending physician: Prosper Fitzpatrick MD Consults: Pulmonologsit - Dr. Hameed Pneumatic Tube Repairer - Dr. Last Infectious Disease - Dr. 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 Hospital Course - Lab Results Lab Results: Micro Results 10/30/17 12:20 Pleural Fluid Gram Stain - Final 10/30/17 12:20 Pleural Fluid Body Fluid Culture - Preliminary NO GROWTH AFTER 2 DAYS Most Recent Lab Values WBC 8.3 K/uL (4.8-10.8) 10/31/17 04:20 RBC 3.70 Mil/uL (4.40-5.90) L 10/31/17 04:20 Hgb 11.7 g/dL (12.0-18.0) L 10/31/17 04:20 Hct 33.9 % (35.0-51.0) L 10/31/17 04:20 MCV 91.8 fl (80.0-94.0) 10/31/17 04:20 MCH 31.5 pg (27.0-31.0) H 10/31/17 04:20 MCHC 34.4 g/dL (33.0-37.0) 10/31/17 04:20 RDW 13.1 % (11.5-14.5) 10/31/17 04:20 Plt Count 397 K/uL (130-400) 10/31/17 04:20 MPV 7.2 fl (7.2-11.7) 10/27/17 13:19 Neut % (Auto) 81.6 % (50.0-75.0) H 10/27/17 13:19 Lymph % (Auto) 8.6 % (20.0-40.0) L 10/27/17 13:19 [place] % (Auto) 7.1 % (0.0-10.0) 10/27/17 13:19 Eos % (Auto) 2.1 % (0.0-4.0) 10/27/17 13:19 Baso % (Auto) 0.6 % (0.0-2.0) 10/27/17 13:19 Neut # (Auto) 5.4 K/uL (1.8-7.0) 10/27/17 13:19 Lymph # (Auto) 0.6 K/uL (1.0-4.3) L 10/27/17 13:19 [place] # (Auto) 0.5 K/uL (0.0-0.8) 10/27/17 13:19 Eos # (Auto) 0.1 K/uL (0.0-0.7) 10/27/17 13:19 Baso # (Auto) 0.0 K/uL (0.0-0.2) 10/27/17 13:19 Neutrophils % (Manual) 83 % (42-75) H 10/27/17 13:19 Lymphocytes % (Manual) 8 % (20-50) L 10/27/17 13:19 Reactive Lymphs % 1 % (0-0) H 10/27/17 13:19 Monocytes % (Manual) 7 % (0-10) 10/27/17 13:19 Eosinophils % (Manual) 1 % (0-7) 10/27/17 13:19 Platelet Estimate Normal (NORMAL) 10/27/17 13:19 Spherocytes Slight 10/27/17 13:19 PT 13.6 Seconds (9.8-13.1) H 11/01/17 04:20 INR 1.2 11/01/17 04:20 APTT 32.7 Seconds (25.6-37.1) 10/27/17 15:08 pCO2 55 mm/Hg (35-45) H 10/27/17 13:16 pO2 59 mm/Hg (80-100) L 10/27/17 13:16 HCO3 35.1 mmol/L (21-28) H 10/27/17 13:16 ABG pH 7.46 (7.35-7.45) H 10/27/17 13:16 ABG Total CO2 40.8 mmol/L (22-28) H 10/27/17 13:16 ABG O2 Saturation 95.0 % (95-98) 10/27/17 13:16 ABG O2 Content 13.9 ML/dL (15-23) L 10/27/17 13:16 ABG Base Excess 13.3 mmol/L (-2.0-3.0) H 10/27/17 13:16 ABG Hemoglobin 11.0 g/dL (11.7-17.4) L 10/27/17 13:16 ABG Carboxyhemoglobin 3.2 % (0.5-1.5) H 10/27/17 13:16 POC ABG HHb (Measured) 4.7 % (0.0-5.0) 10/27/17 13:16 ABG Methemoglobin 2.5 % (0.0-3.0) 10/27/17 13:16 ABG O2 Capacity 14.6 mL/dL (16-24) L 10/27/17 13:16 Scout Test Yes 10/27/17 13:16 A-a O2 Difference 22.0 mm/Hg 10/27/17 13:16 Hgb O2 Saturation 89.7 % (95.0-98.0) L 10/27/17 13:16 FiO2 21.0 % 10/27/17 13:16 Blood Gas Comments Rroomm air,rt rad 10/27/17 13:16 Crit Value Read Back N 10/27/17 13:16 Sodium 137 mmol/l (132-148) 10/30/17 12:06 Potassium 4.0 MMOL/L (3.6-5.0) 10/30/17 12:06 Chloride 96 mmol/L (98-107) L 10/30/17 12:06 Carbon Dioxide 33 mmol/L (22-30) H 10/30/17 12:06 Anion Gap 12 (10-20) 10/30/17 12:06 BUN 22 mg/dl (9-20) H 10/30/17 12:06 Creatinine 0.7 mg/dl (0.8-1.5) L 10/30/17 12:06 Est GFR ( Amer) > 60 10/30/17 12:06 Est GFR (Non-Af Amer) > 60 10/30/17 12:06 POC Glucose (mg/dL) 258 mg/dL (65-110) H 10/31/17 21:50 Random Glucose 150 mg/dL (75-110) H 10/30/17 12:06 Calcium 9.0 mg/dL (8.4-10.2) 10/30/17 12:06 Total Bilirubin 0.5 mg/dl (0.2-1.3) 10/30/17 12:06 AST 36 U/L (17-59) 10/30/17 12:06 ALT 52 U/L (21-72) 10/30/17 12:06 Alkaline Phosphatase 61 U/L (38-126) 10/30/17 12:06 Lactate Dehydrogenase 499 U/L (313-618) 10/30/17 12:06 NT-Pro-B Natriuret Pep 2920 pg/ml (0-900) H 10/27/17 13:19 Total Protein 6.3 G/DL (6.3-8.2) 10/30/17 12:06 Albumin 3.5 g/dL (3.5-5.0) 10/30/17 12:06 Globulin 2.8 gm/dL (2.2-3.9) 10/30/17 12:06 Albumin/Globulin Ratio 1.3 (1.0-2.1) 10/30/17 12:06 Fluid Source Pleural/thoracentesi 10/30/17 10:33 Fluid Appearance Sl cloudy (CLEAR) 10/30/17 10:33 Fluid WBC 376.0 /mm3 (0.0-300.0) H 10/30/17 10:33 Fluid RBC 851.0 /mm3 (0.0-0.0) H 10/30/17 10:33 Fluid Tot Cell Count 100 (0-0) H 10/30/17 10:33 Fluid Neutrophils 6.0 % (0-0) H 10/30/17 10:33 Fluid Lymphocytes 84.0 % (0-0) H 10/30/17 10:33 Fld Monocyte/Macrophag 10 % (0-0) H 10/30/17 10:33 Fluid Glucose 126 mg/dL (NONE ESTABLISHED) 10/30/17 10:33 Fluid Total Protein < 2.0 g/dL (NONE ESTABLISHED) 10/30/17 10:33 Fluid LDH 221 IU (NONE ESTABLISHED) 10/30/17 10:33 Fluid Triglycerides < 10 mg/dL (NONE ESTABLISHED) 10/30/17 10:33 Fluid Comment Yellow 10/30/17 10:33 - Hospital Course Hospital Course: 76 y/o M with PMH of DM2, HTN, COPD, atrial fibrillation and hx of lung nodule ( Dx with organizing pneumonia) admitted for worsening dyspnea. Patient was in [facility] ICU followed by TCU for left sided pneumothorax developed after lung biopsy at [facility] on 10/04/17. 1st chest tube was placed without resolution of pneumothorax. Subsequently 2 more chest tubes placed which eventually resolved pneumothorax. Patient was monitored via serial CXR and CT scan which showed resolution of pneumothorax and progressive worsening of bilateral pleural effusion. Right sided thoracentesis was done which drained about 800 cc of serous fluid. Flexible bronchoscopy was done which showed dark brown blood. Patient also completed total of 14 days Vancomycin and 10 days of Meropenum. Patient transferred to ER from TCU due to worsening shortness of breath, hypoxemia, and dark brown sputum. Left sided thoracentesis was performed and 1000ml fluid was drained. Patient completed 7 days of IV abx treatment with Ertepenum. Patient's symptoms improved with improvement in dyspnea at rest and with activity. Patient discharged home with Flonase, Levemir 6 unit HS, Prandin reduced to 0.5 mg from 2 mg, Medol pack, Bactrim DS x 7 days and coumadin. Patient advised to continue home medications and home oxygen. Patient to return for PT/INR monitoring on 11/04 and follow up with Dr. Last on . Patient advised to F/U with Dr. Galvez at [facility] on 11/07/17 at 9.20 AM. Patient will follow up with Dr. Hameed or [facility] for follow up. Discharge Medications Continue Home Medications -Atorvastatin Calcium (Lipitor) 40 mg PO HS [facility] -Finasteride (Proscar) 5 mg PO DAILY [facility] -Losartan HCTZ 50-12.5 PO DAILY -Fluticasone/Salmeterol (Advair Diskus 100/50) 1 puff IH BID [facility] -Tiotropium [place] (Spiriva) 18 mcg IH DAILY [facility] -Ventolin 2 puffs Q4-6hr PRN New medications -Fluticasone Propionate (Flonase) 2 spr EDMUNDO DAILY PRN -Insulin Detemir (Levemir) 6 units SC HS [facility] -Repaglinide (Prandin) 0.5 mg PO ACBD [facility] -methylPREDNISolone [Medrol] 6 mg PO BID 9 Days tab -Sulfamethoxazole/Trimethoprim [Bactrim DS 800 mg-160 mg] 1 tab PO BID 7 Days tab -Warfarin [Coumadin] 2.5 mg PO QD5 Discharge Exam - Head Exam Head Exam: ATRAUMATIC, NORMAL INSPECTION, NORMOCEPHALIC - Eye Exam Eye Exam: Normal appearance, PERRL - ENT Exam ENT Exam: Mucous Membranes Moist - Respiratory Exam Respiratory Exam: Decreased Breath Sounds, NORMAL BREATHING PATTERN. absent: Prolonged Expiratory Phase, Rales, Rhonchi, Wheezes, Respiratory Distress - Cardiovascular Exam Cardiovascular Exam: REGULAR RHYTHM, +S1, +S2. absent: Systolic Murmur - GI/Abdominal Exam GI & Abdominal Exam: Normal Bowel Sounds. absent: Firm, Guarding, Hernia - Extremities Exam Extremities exam: full ROM - Back Exam Back exam: absent: CVA tenderness (L), CVA tenderness (R), tenderness - Neurological Exam Neurological exam: Alert, Oriented x3 - Psychiatric Exam Psychiatric exam: Normal Affect, Normal Mood - Skin Skin Exam: Dry, Intact, Normal Color Discharge Plan - Discharge Medications Prescriptions: Fluticasone Propionate [Flonase] 2 spray EDMUNDO DAILY 30 Days #1 bottle Gabapentin [Neurontin] 300 mg PO HS 30 Days cap Insulin Detemir [Levemir] 6 unit SC HS 30 Days unit methylPREDNISolone [Medrol] 6 mg PO BID 9 Days tab Repaglinide [Prandin] 0.5 mg PO ACBD 30 Days tab Sulfamethoxazole/Trimethoprim [Bactrim DS 800 mg-160 mg] 1 tab PO BID 7 Days tab Tiotropium [Spiriva] 18 mcg IH DAILY 30 Days cap - Follow Up Plan Condition: FAIR Disposition: HOME/ ROUTINE Instructions: Exacerbation of COPD, Pleural Effusion (DC), Shortness of Breath (Dyspnea) Additional Instructions: Follow up with Dr. Galvez on 11/07/2017 at 9.20 AM. Arrive 30 mins before appointment. Follow up with Dr. Last on 11/06/2017. Script provided by Dr. Last for INR monitoring on 11/04 Follow up with [place] Dr. Hameed or [facility]OHAN. Return to ER if acute worsening of symptoms. Referrals: Andrew Last MD [Staff Provider] - Ssuan Galvez MD [Family Provider] - Elgin Hameed MD [Staff Provider] -
[2017-11-01 13:21] VITALS: BP 154/68; PULSE 84; TEMP 97.7; O2SAT 92
--- NOTE | 2017-11-03 15:10 | PQF ---
PROVIDER RESPONSE TEXT: Hospital Acquired Pneumonia: S/p treatment with merrem and ertapenem for total of 18 days REVIEWER QUERY TEXT: Pneumonia Specificity Pneumonia is documented in the Medical Record. If in agreement with the diagnosis please specify the type of Pneumonia and the causative organism (includes probable or suspected) versus Pneumonia rule d out? 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 Plan- : has completed 14 days of IV vancomycin for the blood cx from 10/09/2017 Identified as Bifidobac terium. repeat blood cx - neg x 4 had completed 10 days of IV meropnem. hemoptysis evaluation as per credentialing assistant started on Iv ertapenem for Enterobacter and K.Pneumonia in pleural fluid cx day #5 advise total of 8 days of Iv abx and can be switched to oral bactrim Ds daily once pt. is cleared by credentialing assistant for d/c home. bronchial washing cx adn cytology pending The patient's Clinical Indicators include: XX Query created by: Ioana Valle on 10/31/2017 1:39 PM Electronically signed by: Shelby Kulkarni 11/03/2017 3:07 PM
== END 2017-11-01 15:10 | disposition home or self-care (01) | DRG 186 ==
LOC: H.ER 12:33 → H.ERHOLD 13:09 → H.TEL 17:30
PROVIDERS: ADMIT Family Medicine; ATTEND Family Medicine
PROC: 3E0F7GC Introduction of Other Therapeutic Substance into Respiratory Tract, Via Natural or Artificial Opening (ICD-10-PCS; 2017-10-27)
PROC: 0W9B30Z Drainage of Left Pleural Cavity with Drainage Device, Percutaneous Approach (ICD-10-PCS; principal; 2017-10-30)
DX: J90 Pleural effusion, not elsewhere classified (principal); J18.9 Pneumonia, unspecified organism; J44.1 Chronic obstructive pulmonary disease with (acute) exacerbation; J44.0 Chronic obstructive pulmonary disease with (acute) lower respiratory infection; R04.2 Hemoptysis; J84.89 Other specified interstitial pulmonary diseases; R09.02 Hypoxemia; I48.2 Chronic atrial fibrillation; B96.1 Klebsiella pneumoniae [K. pneumoniae] as the cause of diseases classified elsewhere; R91.1 Solitary pulmonary nodule; E11.9 Type 2 diabetes mellitus without complications; I10 Essential (primary) hypertension; E78.5 Hyperlipidemia, unspecified; E78.00 Pure hypercholesterolemia, unspecified; Y95 Nosocomial condition; Z87.01 Personal history of pneumonia (recurrent); Z87.891 Personal history of nicotine dependence; Z79.4 Long term (current) use of insulin